=== PATIENT | male | born 1980 | race African-American/Black ===

== ENCOUNTER 2016-10-23 15:10 | Inpatient (IN) | payer OTHER ==
[2016-10-23] VITALS (12 sets, daily range): BP systolic 90–123; BP diastolic 66–84; PULSE 114–152; RESP 12–48; TEMP 98.7–102.1; O2SAT 59–98
[~2016-10-23] VITALS: Ht 152.4 cm; Wt 36.2 kg
[~2016-10-23 15:10] MED LIST: ASPI-110; FEED1MIS9; FLUD.1 PO; HYOS.125 PO; JEVILIQ10 PEG; PHEN100S PEG; SCOP1PAT TD; TOPI100 GT
[2016-10-23] MEDS ORDERED: SODIUM CHLOR 0.9% 1000 ML INJ 1,000 ML IV ONE ×3 (15:19→18:15)
[2016-10-23] MEDS ORDERED: PIPERACIL-TAZO 4.5 GM PREMIX 100 ML IV STA (15:19)
[2016-10-23] MEDS ORDERED: AZITHROMYCIN INJ 500 MG in SODIUM CHLOR 0.9% 250 ML INJ 250 ML IV STA (15:19)
[2016-10-23 15:21] LABS: MEAN CORPUSCULAR HGB CONC 24.9 % (32.0-36.0)
--- NOTE | 2016-10-23 15:23 | PD ---
HPI Chief Complaint: Altered Mental Status Time Seen by Provider: 15:19 Travel History International Travel<30 days: No Contact w/Intl Traveler<30days: No Traveled to known affect area: No History of Present Illness HPI 36-year-old male with history of cerebral palsy, has a G-tube, previous pneumonia, presents to the ER today brought in by EMS because family noted that he is more disoriented than usual, grunting more than usual, and has been vomiting. He has a fever 101 according to EMS. He is nonverbal and unable to give us any further history. Modifying Factors: None Associated Signs & Symptoms: Fever, grunting, more disoriented than usual, vomiting Risk Factors: Cerebral palsy, nonverbal at baseline, pneumonia PFSH Past Medical History Autoimmune Disease: No Blood Disorders: No Cancer: No Cardiovascular Problems: Yes (BRADYCARDIA) Cerebral Palsy: Yes Chemotherapy: No Developmental Delay: Yes Diminished Hearing: No Endocrine: No Gastrointestinal Disorders: Yes (J TUBE ) GERD: Yes Genitourinary: No Hiatal Hernia: Yes Immune Disorder: No Musculoskeletal: Yes (C.P --- SCOLIOSIS) Neurologic: Yes (CEREBRAL PALSY, SEVERE DEVELOPMENTAL DELAY) Psychiatric: No Respiratory: Yes (PNA) Immunizations Current: Yes Radiation Therapy: No Seizures: Yes Shingles: Yes Past Surgical History Abdominal Surgery: Yes (2000 EXP LAP SBO, HECTOR FUNDOPLICATION, NEW PEG SITE MARCH 2007 ) Body Medical Devices: G-TUBE,RING AROUND ESOPHAGUS Cardiac Surgery: No Ear Surgery: No Endocrine Surgery: No Eye Surgery: No Genitourinary Surgery: No Gynecologic Surgery: No Neurologic Surgery: Yes (HISTORY OF SEIZURES) Oral Surgery: No Thoracic Surgery: No Other Surgery: Yes (G-TUBE, SPLEEN REMOVED ) Social History Alcohol Use: No Tobacco Use: No Substance Use: No Allergies-Medications (Allergen,Severity, Reaction): Coded Allergies: No Known Allergies (Unverified , 06/21/16) Reported Meds & Prescriptions Reported Meds & Active Scripts Active Hyoscyamine Sulfate 0.125 Mg Tab 0.125 Mg PO Q6H 7 Days Transderm-Scop (Scopolamine) 1 Patch Patch 1 Patch TD Q3D 30 Days Phenytoin 125 Mg/5 Ml Lyla 100 Mg PEG Q12HR 30 Days Aspirin/Enteric (Aspirin) 81 Mg Tab 81 Mg .XX DAILY Florinef (Fludrocortisone Acetate) 0.1 Mg Tab 0.2 Mg PO DAILY 30 Days Topamax (Topiramate) 100 Mg Tab 100 Mg GT BID 30 Days Jevity 1.5 Ang (Nutritional Supplements) Ang Liq 1 Can PEG CONTINUOUS 30 Days infusing at 60/hr continuous Kangaroo Scottie Pump Set/An (Feeding Tubes - Pump) 1 Mis Mis Ea Review of Systems ROS Limitations: Altered Mental Status Physical Exam Narrative GENERAL: Well-nourished, middle age -Welsh male with cerebral palsy and extremity contractures, awake, nonverbal. SKIN: Warm and dry. HEAD: Normocephalic. EYES: No scleral icterus. No injection or drainage. NECK: Supple, trachea midline. CARDIOVASCULAR: Fast and regular rhythm without murmurs, gallops, or rubs. RESPIRATORY: Breath sounds equal bilaterally. Mild accessory muscle use. GASTROINTESTINAL: Abdomen soft, non-tender, nondistended. G-tube appears to be in placed. MUSCULOSKELETAL: No cyanosis, or edema. BACK: Nontender without obvious deformity. No CVA tenderness. Data Data Last Documented VS Vital Signs Date Time Temp Pulse Resp B/P Pulse Ox O2 Delivery O2 Flow Rate FiO2 10/23/16 16:50 75 Non-Rebreather 15 10/23/16 16:48 152 46 90/68 10/23/16 15:55 102.1 Orders Electrocardiogram (10/23/16 15:19) Complete Blood Count With Diff (10/23/16 15:19) Comprehensive Metabolic Panel (10/23/16 15:19) Lactic Acid Sepsis Protocol (10/23/16 15:19) Lipase (10/23/16 15:19) Ckmb (Isoenzyme) Profile (10/23/16 15:19) Troponin I (10/23/16 15:19) Urinalysis - C+S If Indicated (10/23/16 15:19) Influenzae A/B Antigen (10/23/16 15:19) Blood Culture (10/23/16 15:19) Chest, Single Ap (10/23/16 15:19) Blood Glucose (10/23/16 15:19) Ecg Monitoring (10/23/16 15:19) Iv Access Insert/Monitor (10/23/16 15:19) Oximetry (10/23/16 15:19) Oxygen Administration (10/23/16 15:19) Piperacil-Tazo 4.5 Gm Premix (Zosyn 4.5 (10/23/16 15:19) Azithromycin Inj (Zithromax Inj) (10/23/16 15:19) Sodium Chlor 0.9% 1000 Ml Inj (Ns 1000 M (10/23/16 15:19) Urine Culture (10/23/16 15:45) Ct Abd/Pel W Iv Contrast(Rout) (10/23/16 16:25) Oral Contrast - Adult (10/23/16 16:30) Ns + Kcl 20 Meq Inj (Ns + Kcl 20 Meq Inj (10/23/16 17:00) Sodium Chlor 0.9% 1000 Ml Inj (Ns 1000 M (10/23/16 17:00) Arterial Blood Gas (Abg) (10/23/16 16:52) Consult Vascular Access Team (10/23/16 ) Ct Pulmonary Angiogram (10/23/16 17:12) Admit Order (Ed Use Only) (10/23/16 17:13) Labs Laboratory Tests Test 10/23/16 10/23/16 15:25 15:45 White Blood Count 6.7 TH/MM3 Red Blood Count 5.47 MIL/MM3 Hemoglobin 9.4 GM/DL Hematocrit 37.7 % Mean Corpuscular Volume 68.9 FL Mean Corpuscular Hemoglobin 17.2 PG Mean Corpuscular Hemoglobin 24.9 % Concent Red Cell Distribution Width 24.2 % Platelet Count 200 TH/MM3 Mean Platelet Volume 9.2 FL Neutrophils (%) (Auto) 81.4 % Lymphocytes (%) (Auto) 16.4 % Monocytes (%) (Auto) 2.0 % Eosinophils (%) (Auto) 0.1 % Basophils (%) (Auto) 0.1 % Neutrophils # (Auto) 5.5 TH/MM3 Lymphocytes # (Auto) 1.1 TH/MM3 Monocytes # (Auto) 0.1 TH/MM3 Eosinophils # (Auto) 0.0 TH/MM3 Basophils # (Auto) 0.0 TH/MM3 CBC Comment AUTO DIFF Differential Comment AUTO DIFF CONFIRMED Platelet Estimate NORMAL Platelet Morphology Comment NORMAL Target Cells 2+ Ovalocytes 1+ Acanthocytes 1+ Sodium Level 151 MEQ/L Potassium Level 3.0 MEQ/L Chloride Level 112 MEQ/L Carbon Dioxide Level 25.5 MEQ/L Anion Gap 14 MEQ/L Blood Urea Nitrogen 42 MG/DL Creatinine 1.32 MG/DL Estimat Glomerular Filtration 75 ML/MIN Rate Random Glucose 150 MG/DL Calcium Level 8.6 MG/DL Total Bilirubin 0.2 MG/DL Aspartate Amino Transf 11 U/L (AST/SGOT) Alanine Aminotransferase 23 U/L (ALT/SGPT) Alkaline Phosphatase 113 U/L Total Creatine Kinase 28 U/L Troponin I LESS THAN 0.02 NG/ML Total Protein 9.3 GM/DL Albumin 2.8 GM/DL Lipase 130 U/L Urine Color YELLOW Urine Turbidity HAZY Urine pH 5.5 Urine Specific G[place]ay 1.032 Urine Protein 300 mg/dL Urine Glucose (UA) NEG mg/dL Urine Ketones TRACE mg/dL Urine Occult Blood NEG Urine Nitrite NEG Urine Bilirubin NEG Urine Urobilinogen 2.0 MG/DL Urine Leukocyte Esterase NEG Urine RBC 2 /hpf Urine WBC 4 /hpf Urine Squamous Epithelial <1 /hpf Cells Urine Bacteria OCC /hpf Urine Hyaline Casts 4 /lpf Urine Mucus MOD /lpf Microscopic Urinalysis Comment CATH-CULTURE IND Lactic Acid Level 7.9 mmol/L MDM Medical Decision Making Medical Screen Exam Complete: Yes Emergency Medical Condition: Yes Medical Record Reviewed: Yes Interpretation(s) Laboratory Tests Test 10/23/16 10/23/16 15:25 15:45 Hemoglobin 9.4 GM/DL (13.0-17.0) Hematocrit 37.7 % (39.0-51.0) Mean Corpuscular Volume 68.9 FL (80.0-100.0) Mean Corpuscular Hemoglobin 17.2 PG (27.0-34.0) Mean Corpuscular Hemoglobin 24.9 % Concent (32.0-36.0) Red Cell Distribution Width 24.2 % (11.6-17.2) Neutrophils (%) (Auto) 81.4 % (16.0-70.0) Target Cells 2+ (NORMAL) Ovalocytes 1+ (NORMAL) Acanthocytes 1+ (NORMAL) Sodium Level 151 MEQ/L (136-145) Potassium Level 3.0 MEQ/L (3.5-5.1) Chloride Level 112 MEQ/L (98-107) Blood Urea Nitrogen 42 MG/DL (7-18) Creatinine 1.32 MG/DL (0.60-1.30) Estimat Glomerular Filtration 75 ML/MIN (>89) Rate Random Glucose 150 MG/DL (74-106) Aspartate Amino Transf 11 U/L (15-37) (AST/SGOT) Total Creatine Kinase 28 U/L (39-308) Troponin I LESS THAN 0.02 NG/ML (0.02-0.05) Total Protein 9.3 GM/DL (6.4-8.2) Albumin 2.8 GM/DL (3.4-5.0) Urine Turbidity HAZY (CLEAR) Urine Protein 300 mg/dL (NEG-TRACE) Urine Ketones TRACE mg/dL (NEG) Urine Bacteria OCC /hpf (NONE) Urine Mucus MOD /lpf (OCC) Lactic Acid Level 7.9 mmol/L (0.4-2.0) Last 24 hours Impressions Chest X-Ray 10/23/16 9797 Signed Impressions: Service Date/Time: Sunday, October 23, 2016 15:21 - CONCLUSION: No acute disease. Ahsan Rodriguez MD Differential Diagnosis Altered mental status, vomitingsepsis versus dehydration versus metabolic issues versus pneumonia versus acute intra-abdominal processes Narrative Course Patient has a fever in the ER, and considering symptoms, there is concern for possible underlying sepsis and pneumonia. IV antibiotics were initiated after blood cultures were drawn. IV fluids initiated. Lab work returns showing significant dehydration, hyper natremia and hypokalemia. IV fluids as well as IV potassium was initiated. Patient is rapidly breathing and tachycardic despite IV fluids and I have discussed the findings with mom about intubation. Patient's mom initially was resistant to the idea but after further discussion, was agreeable and patient was intubated for respiratory distress and hypoxia. At this point, case had been discussed with Dr. Holliday, form stripper, for admission for further treatment. Aggregate critical care time was 35 minutes. Time to perform other separately billable procedures was not included in the critical care time. My time did not include minutes spent treating any other patients simultaneously or on activities that did not directly contribute to the patient's treatment. The services I provided to this patient were to treat and/or prevent clinically significant deterioration that could result in: Worsening respiratory distress, respiratory failure, septic shock, I provided critical care services requiring my management, as noted below: Chart data review, documentation time, medication orders and management, vital sign assessments/reviewing monitor data, ordering and reviewing lab tests, ordering and interpreting/reviewing x-rays and diagnostic studies, care of the patient and discussion of the patient with the admitting physicians. Procedures Procedure Narrative Left external jugular vein IV insertion: Area is prepped with ChloraPrep and patient is placed in Trendelenburg position. 20-gauge IV was placed in left EJ and inserted via Seldinger technique without issues. Patient tolerated procedure well. After the risks and benefits were discussed the following procedure was performed: INTUBATION: The patient was put in optimal position for the procedure. Rapid sequence intubation was initiated by me using 20 milligrams of etomidate IV and 10 milligrams of vecuronium IV. The patient was intubated with a 7.0 cuffed endotracheal tube. Tube placement was confirmed by visualization of the tube and balloon passing through the cords, capnometry and subsequent chest x-ray. Breath sounds were equal and well aerated bilaterally postintubation. No breath sounds over stomach. Patient tolerated procedure well. Sepsis Criteria SIRS Criteria (2 or more): Heart rate over 90, RR > 20 or PaCO2 < 32 Severe Sepsis (+one): Lactate >2 Septic Shock Criteria: Lactic acid >=4 Criteria Outcome: Meets severe sepsis criteria Diagnosis Primary Impression: Respiratory failure requiring intubation Additional Impressions: Hypokalemia Sepsis Admitting Information Admitting Physician Requests: Admit Feliberto Rodney MD Oct 23, 2016 15:23
--- NOTE | 2016-10-23 15:51 | RADRPT ---
EXAM DATE/TIME: 10/23/2016 15:21 [facility] COMPARISON: CHEST SINGLE AP, June 29, 2016, 9:31. INDICATIONS : Fever. MEDICAL HISTORY : Seizures. Cardiovascular disease. Cerebal palsy. SURGICAL HISTORY : None. ENCOUNTER: Subsequent ACUITY: 1 day PAIN SCORE: Non-responsive. LOCATION: Bilateral chest FINDINGS: A single view of the chest demonstrates the lungs to be symmetrically aerated without evidence of mas s, infiltrate or effusion. The cardiomediastinal contours are unremarkable. Osseous structures are intact with stable scoliosis with fracture lumbar spine to the right a secondary chest deformity.. CONCLUSION: No acute disease. Ahsan Rodriguez MD on October 23, 2016 at 15:49 Board Certified Radiologist. This report was verified electronically.
[2016-10-23 16:09] LABS: BACTERIA, URINE OCC /hpf; BLOOD, URINE NEG (NEG); GLUCOSE,URINE NEG (NEG); HYALINE CAST, URINE 4 /lpf (RARE); KETONE, URINE TRACE mg/dL (NEG); MUCUS URINE MOD /lpf (OCC); NITRITE,URINE NEG (NEG); PH, URINE 5.5 (5.0-8.5); SQUAMOUS EPITHELIAL CELL URINE <1 /hpf (0-5); URINE COLOR YELLOW (YELLW/STRAW)
[2016-10-23 16:10] LABS: COMMENT (UR) CATH-CULTURE IND; CULTURE IF INDICATED CATH CULTURE IND
[2016-10-23 16:15] LABS: RED BLOOD COUNT 5.47 MIL/MM3 (4.50-5.90); WHITE BLOOD COUNT 6.7 TH/MM3 (4.0-11.0)
[2016-10-23 16:16] LABS: AUTOMATED NEUTROPHIL # 5.5 TH/MM3 (1.8-7.7); BASOPHIL % 0.1 % (0.0-2.0); EOSINOPHIL % 0.1 % (0.0-4.0); HEMATOCRIT 37.7 % (39.0-51.0); LYMPH % 16.4 % (9.0-44.0); LYMPHOCYTE # 1.1 TH/MM3 (1.0-4.8); MEAN CELL VOLUME 68.9 FL (80.0-100.0); MEAN CORPUSCULAR HEMOGLOBIN 17.2 PG (27.0-34.0); NEUT % 81.4 % (16.0-70.0); PLATELET COUNT 200 TH/MM3 (150-450); RED CELL DISTRIBUTION WIDTH 24.2 % (11.6-17.2)
[2016-10-23 16:21] LABS: HEMO FLAGS AUTO DIFF
[2016-10-23 16:42] LABS: ANION GAP 14 MEQ/L (5-15); AST (GOT) 11 U/L (15-37); BICARBONATE 25.5 MEQ/L (21.0-32.0); BLOOD UREA NITROGEN 42 MG/DL (7-18); CHLORIDE 112 MEQ/L (98-107); GLOMERULAR FILTRATION RATE 75 ML/MIN (>89); SODIUM (NA) 151 MEQ/L (136-145)
[2016-10-23 16:48] LABS: ALKALINE PHOSPHATASE 113 U/L (45-117); ALT (GPT) 23 U/L (12-78); CREATINE KINASE 28 U/L (39-308); TOTAL BILIRUBIN ADULT 0.2 MG/DL (0.2-1.0)
[2016-10-23 16:49] LABS: ACANTHOCYTES 1+ (NORMAL); TARGET CELLS 2+ (NORMAL)
[2016-10-23 16:50] LABS: OVALOCYTES 1+ (NORMAL); PLATELET ESTIMATE SMEAR NORMAL (NORMAL); PLATELET MORPHOLOGY NORMAL (NORMAL); SCAN/DIFF AUTO DIFF CONFIRMED
[2016-10-23] MEDS ORDERED: NS + KCL 20 MEQ INJ 1,000 ML IV SCH (17:00)
[2016-10-23] MEDS ORDERED: VECURONIUM BROMIDE 10 MG VIAL ONE (17:17)
[2016-10-23] MEDS ORDERED: ETOMIDATE 20 MG/10 ML VIAL ONE (17:17)
[2016-10-23] MEDS ORDERED: VECURONIUM BROMIDE 10 MG VIAL IV ONE (17:45)
[2016-10-23] MEDS ORDERED: PROPOFOL 200 MG/20 ML AMP IV ONE (17:45)
[2016-10-23] MEDS ORDERED: ETOMIDATE 20 MG/10 ML VIAL IVP ONE (17:45)
[2016-10-23 18:05] LABS: LACTIC ACID GHOST NOT REPORTABLE
[2016-10-23] MEDS ORDERED: CHLORHEXIDINE GLUCONATE 2 % 1 PACK (2 CLOTHS) TOP PRN (18:15)
[2016-10-23] MEDS ORDERED: PROPOFOL 1000 MG/100 ML INJ 100 ML IV SCH (18:15)
[2016-10-23] MEDS ORDERED: GLUCAGON 1 MG/ML VIAL OTHER PRN (18:15)
[2016-10-23] MEDS ORDERED: VANCOMYCIN INJ 1,000 MG in SODIUM CHLOR 0.9% 250 ML INJ 250 ML IV ONE (18:15)
[2016-10-23] MEDS ORDERED: MISCELLANEOUS NURSING INFORMATION XX SCH (18:15)
[2016-10-23] MEDS: INSULIN NovoLIN REGULAR SUPPLEMENTAL SCALE SQ SCH (18:15)
[2016-10-23] MEDS ORDERED: ACETAMINOPHEN 325 MG TAB PO PRN (18:15)
--- NOTE | 2016-10-23 18:22 | RADRPT ---
EXAM DATE/TIME: 10/23/2016 18:06 [facility] COMPARISON: CHEST SINGLE AP, October 23, 2016, 15:21. INDICATIONS : Post intubation. MEDICAL HISTORY : Seizures. Cardiovascular disease. Cerebal palsy. SURGICAL HISTORY : None. ENCOUNTER: Initial ACUITY: 1 day PAIN SCORE: Non-responsive. LOCATION: Bilateral chest FINDINGS: The exam demonstrates advanced kyphotic deformity of the thoracic spine. The left lung is clear. Ther e is diffuse infiltrate throughout the right lung which is new compared to the previous dated 10/23/16 . This is concerning for pneumonia. ET tubes in good position. CONCLUSION: Diffuse infiltrate throughout the right lung concerning for pneumonia. ET tube in good position. Bernard Espinal MD on October 23, 2016 at 18:20 Board Certified Radiologist. This report was verified electronically.
[2016-10-23] MEDS: RESP: ALBUTEROL 2.5 MG/IPRATROPIUM 0.5 MG NEB (SCH) INH (18:33)
[2016-10-23 18:44] LABS: BLOOD GAS BASE EXCESS -4.6 mmol/L (-2-2); BLOOD GAS CARBOXYHEMOGLOBIN 1.9 % (0-4); BLOOD GAS HCO3 20 mmol/L (22-26); BLOOD GAS METHEMOGLOBIN 1.7 % (0-2); BLOOD GAS O2 HGB SATURATION 89 % (90-100); BLOOD GAS OXYGEN CONTENT 10.2 Vol % (12.0-20.0); BLOOD GAS PCO2 40 mmHg (38-42); BLOOD GAS PO2 70 mmHG (61-120); BLOOD GAS TOTAL HGB 8.1 G/DL (12.0-16.0); TEMP CORR TO 98.6
[2016-10-23 18:45] LABS: CRITICAL VALUE YES; DRAW SITE LT RADIAL; FIO2 70 %; OXYGEN DEVICE VENTILATOR; VENT SETTINGS SEE COMMENTS
[2016-10-23 18:46] LABS: NUMBER OF ARTERIAL PUNCTURES 1; STAT NO; ULNAR PULSE Y
[2016-10-23] MEDS ORDERED: IOHEXOL 350 MG/ML 10 ML VIAL (for RAD DIAG) IV ONE (19:34)
[2016-10-23] MEDS: PANTOPRAZOLE SODIUM 40 MG VIAL IV SCH (19:43)
[2016-10-23] MEDS: POTASSIUM CHLOR 20 MEQ PREMIX 100 ML IV SCH ×2 (19:44→21:55)
[2016-10-23] MEDS: HEPARIN SODIUM - SQ 10,000 UNITS/ML VIAL SQ SCH (20:22)
[2016-10-23] MEDS: DEXTROSE 50% IN WATER 50 ML VIAL(D50) IV PUSH PRN (20:33)
--- NOTE | 2016-10-23 20:52 | RADRPT ---
EXAM DATE/TIME: 10/23/2016 19:27 [facility] COMPARISON: No previous studies available for comparison. INDICATIONS : Evaluate for embolism. IV CONTRAST: 75 cc Omnipaque 350 (iohexol) IV ; Cumulative dose for multiple exams. RADIATION DOSE: 13.94 CTDIvol (mGy) MEDICAL HISTORY : Cerebral palsey. SURGICAL HISTORY : None. ENCOUNTER: Initial ACUITY: 1 day PAIN SCALE: Non-responsive LOCATION: Bilateral chest TECHNIQUE: Volumetric scanning of the chest was performed using a pulmonary embolism protocol MIP images were re constructed. Using automated exposure control and adjustment of the mA and/or kV according to patien t size, radiation dose was kept as low as reasonably achievable to obtain optimal diagnostic quality images. FINDINGS: Endotracheal tube tip is in satisfactory position. There is bilateral airspace consolidation somewhat diffusely but worse on the right. Differential diagnosis includes bilateral bronchopneumonia and asp iration. No significant effusion. No filling defects in the pulmonary arteries to suggest pulmonary embolic disease. 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 Gallstones noted in the gallbladder. There is gaseous distention of bowel with air fluid levels, probably ileus. CONCLUSION: 1. Negative for pulmonary embolus. 2. Diffuse bilateral airspace disease most characteristic of aspiration or pneumonia. 3. Endotracheal tube in satisfactory position. There is some mucoid debris in the airways. 4. Gallstones. Ileus. Scoliosis. Michael Feldman MD on October 23, 2016 at 20:47 Board Certified Radiologist. This report was verified electronically.
[2016-10-23] MEDS: TOPIRAMATE 100 MG TAB GT SCH (21:00)
[2016-10-23 21:06] LABS: MEAN CORPUSCULAR HGB CONC 25.7 % (32.0-36.0)
--- NOTE | 2016-10-23 21:12 | RADRPT ---
EXAM DATE/TIME: 10/23/2016 19:27 [facility] COMPARISON: CT ABDOMEN & PELVIS W/O CONTRAST, June 21, 2016, 2:31. INDICATIONS : Vomiting and fever. IV CONTRAST: 75 cc Omnipaque 350 (iohexol) IV ; Cumulative dose for multiple exams. ORAL CONTRAST: No oral contrast ingested. RADIATION DOSE: 5.78 CTDIvol (mGy) MEDICAL HISTORY : Cerebral palsey. SURGICAL HISTORY : None. ENCOUNTER: Initial ACUITY: 1 day PAIN SCALE: Non-responsive LOCATION: Bilateral abdomen. TECHNIQUE: Volumetric scanning of the abdomen and pelvis was performed. Using automated exposure control and ad justment of the mA and/or kV according to patient size, radiation dose was kept as low as reasonably achievable to obtain optimal diagnostic quality images. FINDINGS: Comparison is June 2016. There is bilateral disease at the bases, right greater than left. See c hest CT report. There is a hiatal hernia. Diffuse ileus present. No acute findings in the liver. Spleen not visualize d. No acute findings in pancreas and kidneys. Bilateral hip dysplasia noted. Watson catheter in decomp ressed bladder. CONCLUSION: 1. Multiple gallstones. Diffuse ileus. Scoliosis with bilateral hip dysplasia. Basilar lung disease. See chest CT. Michael Feldman MD on October 23, 2016 at 21:05 Board Certified Radiologist. This report was verified electronically.
[2016-10-23] MEDS ORDERED: Vancomycin Consult Pharmacy 1 EA OTHER SCH (21:15)
--- NOTE | 2016-10-23 21:50 | PD ---
Physical Exam Narrative I was called in the room to assess the patient after it was noted that the patient's feeding tube was accidentally removed. The patient was initially evaluated by Dr. Mccarthy and intubated related to hypoxemia on room air and tachycardia, suspected pneumonia. The patient is admitted to the intensive care unit although he is holding down in the emergency department. The admitting physician is Dr. Kwon. General: The patient is intubated, sedated with propofol drip. Cardiovascular: Sinus tachycardia in the low 100s without murmurs, gallops, or rubs. Lungs: Clear to auscultation bilaterally. No wheezes, rhonchi, or rales. Abdomen: Soft, without tenderness to palpation in all 4 quadrants of the abdomen, however the patient has a stoma in the center of the abdomen that appears to be fresh on examination. The feeding tube is noted to be removed in available at the bedside for review. This feeding tube appears to be in disrepair, therefore it will be replaced. Extremities: No clubbing, cyanosis, or edema. Data Data Last Documented VS Vital Signs Date Time Temp Pulse Resp B/P Pulse Ox O2 Delivery O2 Flow Rate FiO2 10/23/16 16:50 75 Non-Rebreather 15 10/23/16 16:48 152 46 90/68 10/23/16 15:55 102.1 Orders Electrocardiogram (10/23/16 15:19) Complete Blood Count With Diff (10/23/16 15:19) Comprehensive Metabolic Panel (10/23/16 15:19) Lactic Acid Sepsis Protocol (10/23/16 15:19) Lipase (10/23/16 15:19) Ckmb (Isoenzyme) Profile (10/23/16 15:19) Troponin I (10/23/16 15:19) Urinalysis - C+S If Indicated (10/23/16 15:19) Influenzae A/B Antigen (10/23/16 15:19) Blood Culture (10/23/16 15:19) Chest, Single Ap (10/23/16 15:19) Blood Glucose (10/23/16 15:19) Ecg Monitoring (10/23/16 15:19) Iv Access Insert/Monitor (10/23/16 15:19) Oximetry (10/23/16 15:19) Oxygen Administration (10/23/16 15:19) Piperacil-Tazo 4.5 Gm Premix (Zosyn 4.5 (10/23/16 15:19) Azithromycin Inj (Zithromax Inj) (10/23/16 15:19) Sodium Chlor 0.9% 1000 Ml Inj (Ns 1000 M (10/23/16 15:19) Urine Culture (10/23/16 15:45) Ct Abd/Pel W Iv Contrast(Rout) (10/23/16 16:25) Oral Contrast - Adult (10/23/16 16:30) Ns + Kcl 20 Meq Inj (Ns + Kcl 20 Meq Inj (10/23/16 17:00) Sodium Chlor 0.9% 1000 Ml Inj (Ns 1000 M (10/23/16 17:00) Arterial Blood Gas (Abg) (10/23/16 16:52) Consult Vascular Access Team (10/23/16 ) Ct Pulmonary Angiogram (10/23/16 17:12) Admit Order (Ed Use Only) (10/23/16 17:13) Labs Laboratory Tests Test 10/23/16 10/23/16 15:25 15:45 White Blood Count 6.7 TH/MM3 Red Blood Count 5.47 MIL/MM3 Hemoglobin 9.4 GM/DL Hematocrit 37.7 % Mean Corpuscular Volume 68.9 FL Mean Corpuscular Hemoglobin 17.2 PG Mean Corpuscular Hemoglobin 24.9 % Concent Red Cell Distribution Width 24.2 % Platelet Count 200 TH/MM3 Mean Platelet Volume 9.2 FL Neutrophils (%) (Auto) 81.4 % Lymphocytes (%) (Auto) 16.4 % Monocytes (%) (Auto) 2.0 % Eosinophils (%) (Auto) 0.1 % Basophils (%) (Auto) 0.1 % Neutrophils # (Auto) 5.5 TH/MM3 Lymphocytes # (Auto) 1.1 TH/MM3 Monocytes # (Auto) 0.1 TH/MM3 Eosinophils # (Auto) 0.0 TH/MM3 Basophils # (Auto) 0.0 TH/MM3 CBC Comment AUTO DIFF Differential Comment AUTO DIFF CONFIRMED Platelet Estimate NORMAL Platelet Morphology Comment NORMAL Target Cells 2+ Ovalocytes 1+ Acanthocytes 1+ Sodium Level 151 MEQ/L Potassium Level 3.0 MEQ/L Chloride Level 112 MEQ/L Carbon Dioxide Level 25.5 MEQ/L Anion Gap 14 MEQ/L Blood Urea Nitrogen 42 MG/DL Creatinine 1.32 MG/DL Estimat Glomerular Filtration 75 ML/MIN Rate Random Glucose 150 MG/DL Calcium Level 8.6 MG/DL Total Bilirubin 0.2 MG/DL Aspartate Amino Transf 11 U/L (AST/SGOT) Alanine Aminotransferase 23 U/L (ALT/SGPT) Alkaline Phosphatase 113 U/L Total Creatine Kinase 28 U/L Troponin I LESS THAN 0.02 NG/ML Total Protein 9.3 GM/DL Albumin 2.8 GM/DL Lipase 130 U/L Phenytoin (Dilantin) Level 5.9 MCG/ML Urine Color YELLOW Urine Turbidity HAZY Urine pH 5.5 Urine Specific [place] 1.032 Urine Protein 300 mg/dL Urine Glucose (UA) NEG mg/dL Urine Ketones TRACE mg/dL Urine Occult Blood NEG Urine Nitrite NEG Urine Bilirubin NEG Urine Urobilinogen 2.0 MG/DL Urine Leukocyte Esterase NEG Urine RBC 2 /hpf Urine WBC 4 /hpf Urine Squamous Epithelial <1 /hpf Cells Urine Bacteria OCC /hpf Urine Hyaline Casts 4 /lpf Urine Mucus MOD /lpf Microscopic Urinalysis Comment CATH-CULTURE IND Lactic Acid Level 7.9 mmol/L [facility] Medical Record Reviewed: Yes Supervised Visit with BRENDA: No Interpretation(s) Last Impressions CT Angiography 10/23/16 1712 Signed Impressions: Service Date/Time: Sunday, October 23, 2016 19:27 - CONCLUSION: 1. Negative for pulmonary embolus. 2. Diffuse bilateral airspace disease most characteristic of aspiration or pneumonia. 3. Endotracheal tube in satisfactory position. There is some mucoid debris in the airways. 4. Gallstones. Ileus. Scoliosis. Michael Feldman MD Abdomen/Pelvis CT 10/23/16 1625 Signed Impressions: Service Date/Time: Sunday, October 23, 2016 19:27 - CONCLUSION: 1. Multiple gallstones. Diffuse ileus. Scoliosis with bilateral hip dysplasia. Basilar lung disease. See chest CT. Michael Feldman MD Chest X-Ray 10/23/16 1519 Signed Impressions: Service Date/Time: Sunday, October 23, 2016 15:21 - CONCLUSION: No acute disease. Ahsan Rodriguez MD Abdomen X-Ray 10/23/16 0000 Signed Impressions: Service Date/Time: Sunday, October 23, 2016 22:07 - CONCLUSION: No evidence of obstruction. Injection through the feeding tube reveals filling of proximal small bowel loops. No leakage. Michael Feldman MD Differential Diagnosis Accidental feeding tube dislodgment by patient, versus during the evaluation in the emergency department with rolling the patient Narrative Course During the course of the patients emergency department visit, the patients history, examination, and differential diagnosis were reviewed with the patient. The patient is on a quality assurance monitor body with oximetry and blood pressure monitoring. The patient is on a propofol drip as the patient is intubated. The patient will have his feeding tube replaced. An 18-Arabic feeding tube was brought from [facility]. This was able to be placed by me without any difficulty. Gastric juices were noted to flow freely from one end. The balloon was inflated. A placement x-ray has been ordered. The patient's intensive care doctor has been notified by the nurse caring for the patient. Procedures Procedure Narrative The patient was placed flat in the supine physician, his stoma was identified in the upper center of his abdomen. The patient's 18 Arabic feeding tube was lubricated. The patient's tube passed easily. Gastric juices were noted to flow freely from one end. The end of the feeding tube was clamped. 8 cc of sterile saline were placed in the balloon to prevent dislodgment. A fresh bandage will be applied. An x-ray will be done to confirm placement. The patient tolerated the procedure well. Diagnosis Primary Impression: Respiratory failure requiring intubation Additional Impressions: Sepsis Qualified Code: A41.9 - Sepsis, due to unspecified organism Hypokalemia Dislodged gastrostomy tube Admitting Information Admitting Physician Requests: Admit Claire Evans MD Oct 23, 2016 21:50
[2016-10-23] MEDS: SODIUM CHLOR 0.45% 1000 ML INJ 1,000 ML IV SCH (21:55)
[2016-10-23] MEDS ORDERED: DIATRIZOATE MEGLUM/DIATRIZOATE SOD 120 ML BTL (for RAD DIAG) PEG ONE (22:15)
[2016-10-23] MEDS ORDERED: fentaNYL DRIP 250 ML ONE (22:37)
[2016-10-23] MEDS: fentaNYL DRIP 250 ML IV SCH (22:42)
--- NOTE | 2016-10-23 23:01 | RADRPT ---
EXAM DATE/TIME: 10/23/2016 22:07 [facility] COMPARISON: No previous studies available for comparison. INDICATIONS : Feeding tube placement. MEDICAL HISTORY : Seizures. Cardiovascular disease. Cerebal palsy. SURGICAL HISTORY : None. ENCOUNTER: Initial ACUITY: 1 day PAIN SCORE: Non-responsive. LOCATION: Left abdomen. FINDINGS: Injection reveals filling of small bowel without evidence for leakage. CONCLUSION: No evidence of obstruction. Injection through the feeding tube reveals filling of proximal small bowel loops. No leakage. Michael Feldman MD on October 23, 2016 at 22:59 Board Certified Radiologist. This report was verified electronically.
[2016-10-23] MEDS: PHENYTOIN SUSP 100 MG/4 ML CUP PEG SCH (23:50)
[2016-10-23] MEDS: FREE WATER G-TUBE SCH (23:50)
[2016-10-23] MEDS: PIPERACIL-TAZO 4.5 GM PREMIX 100 ML IV SCH (23:50)
[2016-10-24] VITALS (18 sets, daily range): BP systolic 85–103; BP diastolic 52–70; PULSE 119–129; RESP 17–33; TEMP 98–98.5; O2SAT 94–100
[2016-10-24] MEDS: SODIUM CHLOR 0.45% 1000 ML INJ 1,000 ML IV SCH ×3 (01:59→17:55)
[2016-10-24] MEDS: CHLORHEXIDINE GLUCONATE 2 % 1 PACK (2 CLOTHS) TOP SCH (01:59)
[2016-10-24] MEDS: RESP: ALBUTEROL 2.5 MG/IPRATROPIUM 0.5 MG NEB (SCH) INH ×5 (04:00→21:01)
[2016-10-24 04:13] LABS: BASOPHIL % 0.1 % (0.0-2.0); EOSINOPHIL % 0.1 % (0.0-4.0); HEMATOCRIT 29.4 % (39.0-51.0); LYMPH % 19.4 % (9.0-44.0); LYMPHOCYTE # 3.4 TH/MM3 (1.0-4.8); MEAN CORPUSCULAR HEMOGLOBIN 16.7 PG (27.0-34.0); MONO % 1.3 % (0.0-8.0); NEUT % 79.1 % (16.0-70.0); PLATELET COUNT 166 TH/MM3 (150-450); RED BLOOD COUNT 4.52 MIL/MM3 (4.50-5.90); RED CELL DISTRIBUTION WIDTH 24.4 % (11.6-17.2); WHITE BLOOD COUNT 17.7 TH/MM3 (4.0-11.0)
[2016-10-24 04:17] LABS: HEMO FLAGS AUTO DIFF
[2016-10-24 04:45] LABS: ALKALINE PHOSPHATASE 73 U/L (45-117); ALT (GPT) 19 U/L (12-78); ANION GAP 10 MEQ/L (5-15); AST (GOT) 18 U/L (15-37); BICARBONATE 23.2 MEQ/L (21.0-32.0); BLOOD UREA NITROGEN 30 MG/DL (7-18); CHLORIDE 120 MEQ/L (98-107); GLOMERULAR FILTRATION RATE 110 ML/MIN (>89); MAGNESIUM 2.1 MG/DL (1.5-2.5); POTASSIUM 3.5 MEQ/L (3.5-5.1); SODIUM (NA) 153 MEQ/L (136-145); TOTAL BILIRUBIN ADULT 0.4 MG/DL (0.2-1.0)
--- NOTE | 2016-10-24 05:27 | MH ---
cc: GERMÁN LARSON M.D. DATE OF ADMISSION: 10/23/2016 DATE OF 1980. HISTORY OF PRESENT ILLNESS The patient is a 36-year-old male with a past medical history of cerebral palsy, seizure disorder, mental retardation, previous hospitalization for aspiration pneumonia who presented to [facility] ED after family found him more disoriented than usual and had been vomiting. In the ED the patient was found febrile with temperature of 102.1 rectally, tachycardiac with heart rate in the 130s to 150s and tachypneic. In addition the patient was hypoxemic on non-rebreather and he was subsequently intubated with etomidate, vecuronium and placed on full mechanical ventilation. His laboratory data is significant for lactic acidemia with lactic acid level of 7.9, hypernatremic with sodium of 151 and hypokalemic with potassium level of 3.0. His renal function showed creatinine of 1.32. No evidence of any leukocytosis. His WBC is 6.7. Chest x-ray prior to intubation showed no acute disease. However, his x-ray post-intubation showed ET tube above the rosi and diffuse infiltrate throughout the right lung concerning for pneumonia. He is currently receiving a second liter of normal saline. In addition the patient received azithromycin and Zosyn in the ED. His CT abdomen and pelvis with IV contrast in addition to CT pulmonary angiogram has been ordered by ED, however, not performed during the time of this dictation. When seen in the ER the patient is on full mechanical ventilation with a PRVC/assist control mode with a rate of 20, tidal volume 500, PEEP of 5, 50% FIO2 and I time of 1.0. His current blood pressure is 108/86 with a pulse of 126 and saturation of 100%. PAST MEDICAL HISTORY Significant for - 1. Cerebral palsy. 2. Mental retardation. 3. Seizure disorder. 4. Scoliosis. PAST SURGICAL HISTORY 1. Previous exploratory laparotomy in 2000 for small bowel obstruction. 2. Previous PEG tube placement. ALLERGIES No known drug allergies. REPORTED MEDICATIONS 1. Dilantin. 2. Aspirin. 3. Florinef. 4. Topamax. FAMILY HISTORY Noncontributory. REVIEW OF SYSTEMS As per HPI. Rest of review of symptoms unobtainable. PHYSICAL EXAMINATION GENERAL: A 36-year-old male, intubated for acute hypoxemic respiratory failure. VITAL SIGNS: Temperature 102.1 rectally, pulse of 126, blood pressure 108/86, saturation 100%, vent setting PRBC/assist control mode rate of 20, tidal volume 400, PEEP of 5, FIO2 of 50%. I-time 1.0. HEENT: Atraumatic, normocephalic. Pupils equal, round, reactive to light and accommodation. Extraocular muscles intact. Conjunctivae pink. Nonicteric sclerae. Oral mucosa within normal limits. NECK: Supple. No JVD, adenopathy or thyromegaly. Trachea in the midline. CARDIOVASCULAR EXAM: Tachycardic. Normal S1 and S2. No murmurs, rubs, or gallops noted. PULMONARY EXAM: Bilateral equal air entry. No accessory muscle use. ABDOMEN: Soft. Mild tenderness on palpation. Nondistended. G-tube in place. EXTREMITIES: No cyanosis, clubbing or edema. NEUROLOGIC: Intubated. LABORATORY DATA Sodium of 151, potassium 3, chloride 112, CO2 25, BUN 42, creatinine 1.32, glucose 150, lactic acid 7.9. AST 11, ALT 23, alk phos 113, total bilirubin 0.2, lipase 130. WBC 6.7, hemoglobin 9.4, hematocrit 37, platelet count 200. Urinalysis negative for nitrite, negative for leukocyte esterase, 4 WBCs. RADIOGRAPHY STUDIES Chest x-ray post intubation showed diffuse infiltrate throughout the right lung concerning for pneumonia, ET tube above the rosi. IMPRESSION 1. Acute hypoxemic respiratory failure requiring intubation. 2. Lactic acidemia. 3. Acute kidney injury. 4. Rule out aspiration pneumonia. 5. Intractable nausea and vomiting. 6. Hypernatremia. 7. Hypokalemia. 8. Anemia. 9. Previous PEG tube placement. 10. History of cerebral palsy. 11. History of developmental delay. 12. History of seizure disorder. 13. History of recurrent aspiration pneumonia. RECOMMENDATIONS 1. Diprivan infusion if needed for sedation and daily sedation vacation. 2. Monitor neuro status closely. 3. Continue with vent support and maintain sats above 92%. 4. Bronchodilators in the form of DuoNeb q. 6. 5. Will initiate an ICU vent bundle. 6. CT pulmonary angiogram has been ordered by ED. We will follow up. 7. We will check ABG post-intubation. 8. Chest x-ray reviewed. 9. Monitor heart rate and blood pressure closely. Maintain MAP greater than 65 mmHg. 10. Serial lactic acid monitoring. 11. He is currently receiving second liter bolus of normal saline. We will give an additional 1 liter of NS followed by maintenance fluids one-half NS at 125 mL/hour. 12. Echo from May of 2016 showed an EF of 55% without any regional wall motion abnormalities. 13. Monitor renal function, I's and O's and electrolyte replacement as needed. 14. IV fluids as stated above. 15. Keep n.p.o. for now and place on Protonix 40 mg IV daily for GI prophylaxis. 16. CT of abdomen and pelvis has been ordered by the ED. Follow up on CT of abdomen and pelvis. 17. We will continue with broad-spectrum antibiotics in the form of Zosyn and Zithromax. In addition will give one dose of vancomycin x 1. Follow up on blood cultures and urine culture. His nasal washing is negative for influenza. 18. Monitor CBC. 19. Place on sliding scale insulin with Accu-Chek q. 6 hours for glycemic control. 20. GI prophylaxis with Protonix 40 mg daily and DVT prophylaxis with SCDs and heparin subcu. Further recommendations will be based on hospital course. Critical care time 60 minutes excluding procedures. MD JOSE Harris/SHANTEL /6:47 PM /5:04 AM
[2016-10-24] MEDS: INSULIN NovoLIN REGULAR SUPPLEMENTAL SCALE SQ SCH ×5 (05:48→23:08)
[2016-10-24] MEDS: FREE WATER G-TUBE SCH (05:48)
[2016-10-24] MEDS: PIPERACIL-TAZO 4.5 GM PREMIX 100 ML IV SCH ×4 (05:48→23:08)
[2016-10-24] MEDS ORDERED: LACTATED RINGER'S 1000 ML INJ 1,000 ML IV ONE (06:15)
[2016-10-24] MEDS ORDERED: METOCLOPRAMIDE HCL SYRUP 10 MG/10 ML UDC PO ONE (06:30)
[2016-10-24 06:50] LABS: BANDS 74 % (0-6); BASOPHILS 1 % (0-2); CORRECTED NUCLEATED RBC 4 /100 WBC (0-0); METAMYELOCYTES 8 % (0-1); NEUTROPHIL # MANUAL DIFF 15.4 TH/MM3 (1.8-7.7); POLYS (SEG NEUTROPHILS) 5 % (16-70); WBC DIFF SAMPLE 100
[2016-10-24 06:51] LABS: TARGET CELLS 1+ (NORMAL)
[2016-10-24 06:53] LABS: KERATOCYTES OCC (NORMAL); PLATELET ESTIMATE SMEAR NORMAL (NORMAL); PLATELET MORPHOLOGY NORMAL (NORMAL); SCAN/DIFF FINAL DIFF MANUAL
[2016-10-24] MEDS: HEPARIN SODIUM - SQ 10,000 UNITS/ML VIAL SQ SCH ×2 (08:15→21:06)
[2016-10-24] MEDS: LACTULOSE SYRUP 20 GM/30 ML CUP PO SCH ×4 (08:15→21:05)
[2016-10-24] MEDS: PHENYTOIN SUSP 100 MG/4 ML CUP PEG SCH ×2 (08:16→21:05)
[2016-10-24] MEDS: SENNOSIDES SYRUP 8.8 MG/5 ML CUP PO SCH (08:16)
[2016-10-24] MEDS: PANTOPRAZOLE SODIUM 40 MG VIAL IV SCH (08:16)
[2016-10-24] MEDS: FLUDROCORTISONE ACETATE 0.1 MG TAB PO SCH (09:00)
[2016-10-24] MEDS: VANCOMYCIN INJ 750 MG in SODIUM CHLOR 0.9% 250 ML INJ 250 ML IV SCH ×2 (11:21→23:08)
[2016-10-24] MEDS: TOPIRAMATE 100 MG TAB GT SCH ×2 (12:24→21:05)
[2016-10-24 14:42] LABS: BICARBONATE 21.7 MEQ/L (21.0-32.0)
[2016-10-24 14:43] LABS: POTASSIUM 5.8 MEQ/L (3.5-5.1)
[2016-10-24 14:58] LABS: CALCIUM-PROTEIN CORRECTED 7.2 MG/DL (8.5-10.1)
--- NOTE | 2016-10-24 15:39 | HHI.CCPN ---
Subjective Remarks/Hospital Course Note for 10/24/16: 10/23: Pneumonia, Respiratory Failure, Severe Sepsis - The patient is a 36-year- old male with a past medical history of cerebral palsy, seizure disorder, mental retardation, previous hospitalization for aspiration pneumonia who presented to [facility] ED after family found him more disoriented than usual and had been vomiting. In the ED the patient was found febrile with temperature of 102.1 rectally, tachycardiac with heart rate in the 130s to 150s and tachypneic. In addition the patient was hypoxemic on non-rebreather and he was subsequently intubated with etomidate, vecuronium and placed on full mechanical ventilation. 10/24: Severe sepsis persists despite broad abx coverage. Urine output improving after aggressive resuscitation. Objective Vital Signs Date Time Temp Pulse Resp B/P Pulse Ox O2 Delivery O2 Flow Rate FiO2 10/24/16 14:40 50 10/24/16 14:00 124 10/24/16 12:12 99 10/24/16 12:00 98.5 27 101/68 10/23/16 22:43 Ventilator 10/23/16 17:22 15 Result Diagram: 10/24/16 0350 10/24/16 1345 Other Results Microbiology Date/Time Procedure Status Source Growth 10/23/16 15:45 Influenza Types A,B Antigen (OLESYA) - Final Complete Nasal Washing NEGATIVE FOR FLU A AND B ANTIGEN.... Laboratory Tests Test 10/23/16 18:40 Blood Gas Puncture Site LT RADIAL Blood Gas Patient Temperature 98.6 Blood Gas HCO3 20 mmol/L (22-26) Blood Gas Base Excess -4.6 mmol/L (-2-2) Blood Gas Oxygen Saturation 89 % (90-100) Arterial Blood pH 7.33 (7.380-7.420) Arterial Blood Partial 40 mmHg (38-42) Pressure CO2 Arterial Blood Partial 70 mmHG Pressure O2 (61-120) Arterial Blood Oxygen Content 10.2 Vol % (12.0-20.0) Arterial Blood 1.9 % (0-4) Carboxyhemoglobin Arterial Blood Methemoglobin 1.7 % (0-2) Blood Gas Hemoglobin 8.1 G/DL (12.0-16.0) Oxygen Delivery Device VENTILATOR Blood Gas Ventilator Setting SEE COMMENTS Blood Gas Inspired Oxygen 70 % Objective Remarks PHYSICAL EXAMINATION GENERAL: Critically ill 36-year-old male. VITAL SIGNS: pulse of 124, blood pressure 101/68, saturation 100%, HEENT: Atraumatic, normocephalic. Orally intubated. NECK: Supple. Trachea in the midline. CARDIOVASCULAR EXAM: Tachycardic at 120s. Normal S1 and S2. No murmurs. No JVD. PULMONARY EXAM: Bilateral equal air entry. Diffuse rhonchi right. ABDOMEN: Soft. Mild tenderness on palpation. Nondistended. G-tube in place, loose in flange, patent. EXTREMITIES: Warm, well perfused. NEUROLOGIC: Largely obtunded, chronically contractured joints. A/P Assessment and Plan IMPRESSION: 1. Acute hypoxemic respiratory failure requiring intubation. 2. Lactic acidemia. 3. Acute kidney injury. 4. Aspiration pneumonia. 5. Intractable nausea and vomiting. 9. Previous PEG tube placement. 10. History of cerebral palsy. 11. History of developmental delay. 12. History of seizure disorder. 13. History of recurrent aspiration pneumonia. Plan: 1. Diprivan infusion if needed for sedation and daily sedation vacation. 2. Monitor neuro status closely. 3. Continue with vent support and maintain sats above 92%. PRVC mode. 4. Bronchodilators in the form of DuoNeb q. 6. 5. Vent bundle. 6. CT pulmonary angiogram has been ordered by ED -> no PE. 10. Serial lactic acid monitoring. 15. Keep n.p.o. for now and place on Protonix 40 mg IV daily for GI prophylaxis. 16. CT of abdomen and pelvis has been ordered by the ED. Follow up on CT of abdomen and pelvis. 17. Continue with broad-spectrum antibiotics in the form of Zosyn and Zithromax. 18. Monitor CBC. 19. Place on sliding scale insulin with Accu-Chek q. 6 hours for glycemic control. 20. SCDs and heparin sq. 21. Review cultures. 22. Daily SBT. Overall impression: He remains critically ill with hypoxemic respiratory failure , unable to wean from ventilator. Whole lung aspiration pneumonia is potentially fatal in this debilitaed man. Critical care 44 mins Sanket Estrada MD Oct 24, 2016 15:38
--- NOTE | 2016-10-24 16:44 | EKG ---
Date Performed: 10/23/2016 Time Performed: 15:27:22 PTAGE: 36 years EKG: SINUS TACHYCARDIA WITH SHORT RI INTERVAL, POSSIBLE ATRIAL FLUTTER ST DEVIATION AND MODERATE T-WAVE ABNORMALITY, CONSIDER ANTEROLATERAL ISCHEMIA ST DEVIATION AND MODERATE T-WAVE ABNORMALITY, CO NSIDER INFERIOR ISCHEMIA. Baseline artifact, consider repeat EKG. When compared to previous tracing, the patient is now Tachycardic and possibly now has atrial flutter. Clinical correlation and repeat E KG suggested. ABNORMAL ECG PREVIOUS TRACING : 06/21/2016 03.39 DOCTOR: Kylah Hunt Interpretating Date/Time 10/24/2016 16:42:55
[2016-10-24] MEDS: OXYBUTYNIN CHLORIDE 5 MG TAB PO SCH ×2 (17:54→21:05)
[2016-10-24] MEDS: AZITHROMYCIN INJ 500 MG in SODIUM CHLOR 0.9% 250 ML INJ 250 ML IV SCH (17:55)
[2016-10-24 21:05] LABS: MEAN CORPUSCULAR HGB CONC 26.8 % (32.0-36.0)
[2016-10-25] VITALS (20 sets, daily range): BP systolic 88–123; BP diastolic 52–71; PULSE 99–124; RESP 17–29; TEMP 98–98.8; O2SAT 94–100
[2016-10-25] MEDS: SODIUM CHLOR 0.45% 1000 ML INJ 1,000 ML IV SCH ×3 (02:49→18:12)
[2016-10-25 04:05] LABS: AUTOMATED NEUTROPHIL # 21.9 TH/MM3 (1.8-7.7); BASOPHIL % 0.2 % (0.0-2.0); EOSINOPHIL # 0.2 TH/MM3 (0-0.4); EOSINOPHIL % 0.9 % (0.0-4.0); HEMATOCRIT 22.2 % (39.0-51.0); LYMPH % 11.5 % (9.0-44.0); LYMPHOCYTE # 2.9 TH/MM3 (1.0-4.8); MEAN CELL VOLUME 61.9 FL (80.0-100.0); MEAN CORPUSCULAR HEMOGLOBIN 16.6 PG (27.0-34.0); MONO % 1.7 % (0.0-8.0); NEUT % 85.7 % (16.0-70.0); PLATELET COUNT 159 TH/MM3 (150-450); RED BLOOD COUNT 3.58 MIL/MM3 (4.50-5.90); RED CELL DISTRIBUTION WIDTH 24.2 % (11.6-17.2); WHITE BLOOD COUNT 25.5 TH/MM3 (4.0-11.0)
[2016-10-25 04:08] LABS: HEMO FLAGS AUTO DIFF
[2016-10-25 04:24] LABS: BICARBONATE 24.8 MEQ/L (21.0-32.0); POTASSIUM 3.5 MEQ/L (3.5-5.1)
[2016-10-25] MEDS: RESP: ALBUTEROL 2.5 MG/IPRATROPIUM 0.5 MG NEB (SCH) INH ×4 (04:31→21:45)
[2016-10-25] MEDS: OXYBUTYNIN CHLORIDE 5 MG TAB PO SCH ×3 (05:54→20:12)
[2016-10-25] MEDS: fentaNYL DRIP 250 ML IV SCH (05:55)
[2016-10-25] MEDS: PIPERACIL-TAZO 4.5 GM PREMIX 100 ML IV SCH ×4 (05:55→22:54)
[2016-10-25] MEDS: CHLORHEXIDINE GLUCONATE 2 % 1 PACK (2 CLOTHS) TOP SCH (05:55)
[2016-10-25] MEDS: INSULIN NovoLIN REGULAR SUPPLEMENTAL SCALE SQ SCH ×4 (06:00→23:50)
[2016-10-25 06:23] LABS: BANDS 26 % (0-6); CORRECTED NUCLEATED RBC 2 /100 WBC (0-0); EOSINOPHILS 2 % (0-4); METAMYELOCYTES 4 % (0-1); NEUTROPHIL # MANUAL DIFF 19.9 TH/MM3 (1.8-7.7); POLYS (SEG NEUTROPHILS) 48 % (16-70); SCAN/DIFF FINAL DIFF MANUAL; WBC DIFF SAMPLE 100
[2016-10-25 06:27] LABS: HOWELL-JOLLY BODIES PRESENT (NONE SEEN); PLATELET ESTIMATE SMEAR NORMAL (NORMAL); PLATELET MORPHOLOGY NORMAL (NORMAL); TARGET CELLS 1+ (NORMAL)
[2016-10-25 06:28] LABS: KERATOCYTES OCC (NORMAL)
[2016-10-25 06:29] LABS: ACANTHOCYTES 1+ (NORMAL); SPHEROCYTES OCC (NORMAL)
[2016-10-25] MEDS: SENNOSIDES SYRUP 8.8 MG/5 ML CUP PO SCH (08:54)
[2016-10-25] MEDS: TOPIRAMATE 100 MG TAB GT SCH ×2 (08:54→20:12)
[2016-10-25] MEDS: LACTULOSE SYRUP 20 GM/30 ML CUP PO SCH ×4 (08:54→20:12)
[2016-10-25] MEDS: FLUDROCORTISONE ACETATE 0.1 MG TAB PO SCH (08:54)
[2016-10-25] MEDS: HEPARIN SODIUM - SQ 10,000 UNITS/ML VIAL SQ SCH ×2 (08:54→20:12)
[2016-10-25] MEDS: PANTOPRAZOLE SODIUM 40 MG VIAL IV SCH (08:54)
[2016-10-25] MEDS: PHENYTOIN SUSP 100 MG/4 ML CUP PEG SCH ×2 (08:54→20:12)
[2016-10-25] MEDS ORDERED: PHARMACY ORDERED LAB XX ONE (11:45)
[2016-10-25] MEDS: VANCOMYCIN INJ 750 MG in SODIUM CHLOR 0.9% 250 ML INJ 250 ML IV SCH ×2 (14:13→23:50)
[2016-10-25 17:18] LABS: HEMATOCRIT 31.8 % (39.0-51.0)
[2016-10-25 17:20] LABS: REVIEW FLAG FINAL
[2016-10-25 17:38] LABS: BICARBONATE 24.6 MEQ/L (21.0-32.0); POTASSIUM 3.3 MEQ/L (3.5-5.1)
--- NOTE | 2016-10-25 17:43 | HHI.CCPN ---
Subjective Remarks/Hospital Course 10/23: Pneumonia, Respiratory Failure, Severe Sepsis - The patient is a 36-year- old male with a past medical history of cerebral palsy, seizure disorder, mental retardation, previous hospitalization for aspiration pneumonia who presented to [facility] ED after family found him more disoriented than usual and had been vomiting. In the ED the patient was found febrile with temperature of 102.1 rectally, tachycardiac with heart rate in the 130s to 150s and tachypneic. In addition the patient was hypoxemic on non-rebreather and he was subsequently intubated with etomidate, vecuronium and placed on full mechanical ventilation. 10/24: Severe sepsis persists despite broad abx coverage. Urine output improving after aggressive resuscitation. 10/25: GNR in sputum. Continue broad abx coverage pending speciation. Gas exchange improved. Objective Vital Signs Date Time Temp Pulse Resp B/P Pulse Ox O2 Delivery O2 Flow Rate FiO2 10/25/16 16:03 98 40 10/25/16 16:00 108 10/25/16 16:00 98.0 29 123/71 10/23/16 22:43 Ventilator 10/23/16 17:22 15 Intake and Output 10/24/16 10/24/16 10/25/16 08:00 16:00 00:00 Intake Total 1080 ml 1120 ml 1451 ml Output Total 425 ml 675 ml 850 ml Balance 655 ml 445 ml 601 ml Result Diagram: 10/25/16 1621 10/25/16 1621 Other Results Microbiology Date/Time Procedure Status Source Growth 10/23/16 15:45 Influenza Types A,B Antigen (OLESYA) - Final Complete Nasal Washing NEGATIVE FOR FLU A AND B ANTIGEN.... 10/23/16 15:45 Urine Culture - Final Complete Urine Catheterized Urine NO GROWTH IN 48 HOURS. Objective Remarks PHYSICAL EXAMINATION GENERAL: Critically ill 36-year-old male. VITAL SIGNS: pulse of 104, blood pressure 128/71, R 16 saturation 100%, HEENT: Atraumatic, normocephalic. Orally intubated. NECK: Supple. Trachea in the midline. CARDIOVASCULAR EXAM: Tachycardic. Normal S1 and S2. No murmurs. No JVD. PULMONARY EXAM: Bilateral equal air entry. Diffuse rhonchi persist right. Left clear. ABDOMEN: Soft. Mild tenderness on palpation. Nondistended. G-tube in place, loose in flange, patent. EXTREMITIES: Warm, well perfused. NEUROLOGIC: Largely obtunded, chronically contractured joints. A/P Assessment and Plan IMPRESSION: 1. Acute hypoxemic respiratory failure requiring intubation. 2. Lactic acidemia. 3. Acute kidney injury. 4. Aspiration pneumonia -> GNR. 5. Intractable nausea and vomiting. 9. Previous PEG tube placement. 10. History of cerebral palsy. 11. History of developmental delay. 12. History of seizure disorder. 13. History of recurrent aspiration pneumonia. Plan: 1. Diprivan infusion if needed for sedation and daily sedation vacation. 2. Monitor neuro status closely. 3. Continue with vent support and maintain sats above 92%. PRVC mode. 4. Bronchodilators in the form of DuoNeb q. 6. 5. Vent bundle. 6. CT pulmonary angiogram has been ordered by ED -> no PE. 10. Serial lactic acid monitoring. 15. Keep n.p.o. for now and place on Protonix 40 mg IV daily for GI prophylaxis. 16. CT of abdomen and pelvis has been ordered by the ED. Follow up on CT of abdomen and pelvis. 17. Continue with broad-spectrum antibiotics in the form of Zosyn and Zithromax. 18. Monitor CBC. 19. Place on sliding scale insulin with Accu-Chek q. 6 hours for glycemic control. 20. SCDs and heparin sq. 21. Review cultures. 22. Daily SBT. 23. Start TFs soon. Overall impression: He remains critically ill with hypoxemic respiratory failure , unable to wean from ventilator. Whole lung pneumonia is potentially fatal in this debilitated man. We lito to have grown an organism to treat at least. Critical care 38 mins Sanket Estrada MD Oct 25, 2016 17:43
[2016-10-25] MEDS: AZITHROMYCIN INJ 500 MG in SODIUM CHLOR 0.9% 250 ML INJ 250 ML IV SCH (18:11)
[2016-10-25 18:23] LABS: CALCIUM-PROTEIN CORRECTED 7.5 MG/DL (8.5-10.1)
[2016-10-25] MEDS: DEXTROSE 50% IN WATER 50 ML VIAL(D50) IV PUSH PRN (20:30)
[2016-10-26] VITALS (17 sets, daily range): BP systolic 103–126; BP diastolic 58–88; PULSE 94–110; RESP 16–24; TEMP 97.6–98.8; O2SAT 94–99
[2016-10-26] MEDS: SODIUM CHLOR 0.45% 1000 ML INJ 1,000 ML IV SCH ×2 (02:47→09:03)
[2016-10-26] MEDS: RESP: ALBUTEROL 2.5 MG/IPRATROPIUM 0.5 MG NEB (SCH) INH ×5 (04:00→19:47)
[2016-10-26] MEDS: CHLORHEXIDINE GLUCONATE 2 % 1 PACK (2 CLOTHS) TOP SCH (04:40)
[2016-10-26] MEDS: PIPERACIL-TAZO 4.5 GM PREMIX 100 ML IV SCH ×4 (04:41→21:20)
[2016-10-26 04:42] LABS: AUTOMATED NEUTROPHIL # 17.2 TH/MM3 (1.8-7.7); BASOPHIL % 0.1 % (0.0-2.0); EOSINOPHIL # 0.2 TH/MM3 (0-0.4); EOSINOPHIL % 1.1 % (0.0-4.0); HEMATOCRIT 34.2 % (39.0-51.0); MEAN CELL VOLUME 67.4 FL (80.0-100.0); MEAN CORPUSCULAR HEMOGLOBIN 20.5 PG (27.0-34.0); MEAN CORPUSCULAR HGB CONC 30.4 % (32.0-36.0); MONO % 1.9 % (0.0-8.0); NEUT % 86.9 % (16.0-70.0); PLATELET COUNT 177 TH/MM3 (150-450); RED BLOOD COUNT 5.07 MIL/MM3 (4.50-5.90); RED CELL DISTRIBUTION WIDTH 24.6 % (11.6-17.2); WHITE BLOOD COUNT 19.8 TH/MM3 (4.0-11.0)
[2016-10-26 04:48] LABS: HEMO FLAGS AUTO DIFF
[2016-10-26 04:56] LABS: BICARBONATE 25.7 MEQ/L (21.0-32.0)
[2016-10-26 05:04] LABS: POTASSIUM 2.6 MEQ/L (3.5-5.1)
[2016-10-26] MEDS: DEXTROSE 50% IN WATER 50 ML VIAL(D50) IV PUSH PRN ×2 (05:11→11:52)
[2016-10-26] MEDS: OXYBUTYNIN CHLORIDE 5 MG TAB PO SCH ×3 (05:11→21:20)
[2016-10-26] MEDS: INSULIN NovoLIN REGULAR SUPPLEMENTAL SCALE SQ SCH ×3 (05:11→18:00)
[2016-10-26] MEDS ORDERED: MAGNESIUM OXIDE 400 MG TAB PO PRN (05:15)
[2016-10-26] MEDS ORDERED: POTASSIUM CHLOR 40 MEQ PREMIX 100 ML IV PRN (05:15)
[2016-10-26] MEDS ORDERED: MAGNESIUM SULFATE INJ 4 GM in SODIUM CHLORIDE 0.9% INJ 92 ML IV PRN (05:15)
[2016-10-26] MEDS: POTASSIUM CHLOR 20 MEQ PREMIX 100 ML IV PRN ×5 (05:15→21:25)
[2016-10-26] MEDS ORDERED: SODIUM PHOSPHATE INJ 30 MMOL in SODIUM CHLOR 0.9% 250 ML INJ 240 ML IV PRN (05:15)
[2016-10-26] MEDS ORDERED: MAGNESIUM SULFATE INJ 2 GM in SODIUM CHLORIDE 0.9% INJ 96 ML IV PRN (05:15)
[2016-10-26] MEDS ORDERED: POTASSIUM CL 40 MEQ/30 ML LIQ UDC PO/TUBE PRN (05:15)
[2016-10-26] MEDS ORDERED: POTASSIUM PHOSPHATE MONOBASIC 500 MG TAB PO/TUBE PRN (05:15)
[2016-10-26] MEDS ORDERED: POTASSIUM CHLOR 20 MEQ PREMIX 100 ML IV PRN (05:15)
[2016-10-26] MEDS ORDERED: POTASSIUM PHOSPHATE MONOBASIC 500 MG TAB PO PRN (05:15)
[2016-10-26 05:50] LABS: ACANTHOCYTES OCC (NORMAL); BANDS 50 % (0-6); CORRECTED NUCLEATED RBC 6 /100 WBC (0-0); NEUTROPHIL # MANUAL DIFF 17.2 TH/MM3 (1.8-7.7); PLATELET ESTIMATE SMEAR NORMAL (NORMAL); PLATELET MORPHOLOGY NORMAL (NORMAL); POLYS (SEG NEUTROPHILS) 37 % (16-70); SCAN/DIFF FINAL DIFF MANUAL; WBC DIFF SAMPLE 100
[2016-10-26 05:51] LABS: TARGET CELLS 1+ (NORMAL)
[2016-10-26] MEDS: HEPARIN SODIUM - SQ 10,000 UNITS/ML VIAL SQ SCH ×2 (08:00→15:09)
--- NOTE | 2016-10-26 08:19 | HHI.CCPN ---
Subjective Remarks/Hospital Course 10/23: Pneumonia, Respiratory Failure, Severe Sepsis - The patient is a 36-year- old male with a past medical history of cerebral palsy, seizure disorder, mental retardation, previous hospitalization for aspiration pneumonia who presented to [facility] ED after family found him more disoriented than usual and had been vomiting. In the ED the patient was found febrile with temperature of 102.1 rectally, tachycardiac with heart rate in the 130s to 150s and tachypneic. In addition the patient was hypoxemic on non-rebreather and he was subsequently intubated with etomidate, vecuronium and placed on full mechanical ventilation. 10/24: Severe sepsis persists despite broad abx coverage. Urine output improving after aggressive resuscitation. 10/25: GNR in sputum. Continue broad abx coverage pending speciation. Gas exchange improved. 10/26: He remains obstructed with a colon ileus and constipation. Right lung infiltrate persists. Bandemia persists. Objective Vital Signs Date Time Temp Pulse Resp B/P Pulse Ox O2 Delivery O2 Flow Rate FiO2 10/26/16 07:56 96 40 10/26/16 04:00 97.6 96 17 111/69 10/23/16 22:43 Ventilator 10/23/16 17:22 15 Intake and Output 10/25/16 10/25/16 10/26/16 08:00 16:00 00:00 Intake Total 1120 ml 1702 ml 1508 ml Output Total 800 ml 750 ml 1350 ml Balance 320 ml 952 ml 158 ml Result Diagram: 10/26/16 0343 10/26/16 0343 Other Results Microbiology Date/Time Procedure Status Source Growth 10/23/16 15:45 Influenza Types A,B Antigen (OLESYA) - Final Complete Nasal Washing NEGATIVE FOR FLU A AND B ANTIGEN.... 10/23/16 15:45 Urine Culture - Final Complete Urine Catheterized Urine NO GROWTH IN 48 HOURS. Objective Remarks PHYSICAL EXAMINATION GENERAL: Critically ill 36-year-old male. VITAL SIGNS: pulse of 196, blood pressure 111/69, R 18 saturation 100%, HEENT: Atraumatic, normocephalic. Orally intubated. NECK: Supple. Trachea in the midline. CARDIOVASCULAR EXAM: Tachycardic. Normal S1 and S2. No murmurs. No JVD. PULMONARY EXAM: Bilateral equal air entry. Diffuse rhonchi persist right. Left clear. ABDOMEN: Soft. Tenderness on palpation. Tensely distended. G-tube in place, loose in flange, patent. EXTREMITIES: Warm, well perfused. NEUROLOGIC: Largely obtunded, chronically contractured joints. Cerebral palsy. A/P Assessment and Plan IMPRESSION: 1. Acute hypoxemic respiratory failure requiring intubation. 2. Lactic acidemia. 3. Acute kidney injury. 4. Aspiration pneumonia -> GNR. 5. Intractable nausea and vomiting. 9. Previous PEG tube placement. 10. History of cerebral palsy. 11. History of developmental delay. 12. History of seizure disorder. 13. History of recurrent aspiration pneumonia. Plan: 1. Diprivan infusion if needed for sedation and daily sedation vacation. 2. Monitor neuro status closely. 3. Continue with vent support and maintain sats above 92%. PRVC mode. 4. Bronchodilators in the form of DuoNeb q. 6. 5. Vent bundle. 6. CT pulmonary angiogram has been ordered by ED -> no PE. 10. Serial lactic acid monitoring. 15. Keep n.p.o. for now and place on Protonix 40 mg IV daily for GI prophylaxis. 16. CT of abdomen and pelvis has been ordered by the ED. Follow up on CT of abdomen and pelvis. 17. Continue with broad-spectrum antibiotics in the form of Zosyn and Zithromax. 18. Monitor CBC. 19. Place on sliding scale insulin with Accu-Chek q. 6 hours for glycemic control. 20. SCDs and heparin sq. 21. Review cultures. 22. Daily SBT. 23. Start TFs soon. 24. Start enemas and laxatives. Overall impression: He remains critically ill with hypoxemic respiratory failure , unable to wean from ventilator; failed SBT. Whole lung pneumonia is potentially fatal in this debilitated man. He remains tensely distended and septic. Hydration has improved. Critical care 39 mins Sanket Estrada MD Oct 26, 2016 08:19
[2016-10-26] MEDS: LACTULOSE SYRUP 20 GM/30 ML CUP PO SCH ×4 (09:02→21:20)
[2016-10-26] MEDS: FLUDROCORTISONE ACETATE 0.1 MG TAB PO SCH (09:02)
[2016-10-26] MEDS: POLYETHYLENE GLYCOL 17 GM PKG PO SCH (09:02)
[2016-10-26] MEDS: PHENYTOIN SUSP 100 MG/4 ML CUP PEG SCH ×2 (09:02→21:20)
[2016-10-26] MEDS: SENNOSIDES SYRUP 8.8 MG/5 ML CUP PO SCH (09:02)
[2016-10-26] MEDS: TOPIRAMATE 100 MG TAB GT SCH ×2 (09:02→21:20)
[2016-10-26] MEDS: PANTOPRAZOLE SODIUM 40 MG VIAL IV SCH (09:03)
--- NOTE | 2016-10-26 09:20 | RADRPT ---
EXAM DATE/TIME: 10/26/2016 08:29 [place] COMPARISON: CHEST SINGLE AP, October 23, 2016, 18:06. INDICATIONS : Hypoxemia. MEDICAL HISTORY : Seizures. Cardiovascular disease. Cerebal palsy. SURGICAL HISTORY : None. ENCOUNTER: Subsequent ACUITY: 3 days PAIN SCORE: Non-responsive. LOCATION: Bilateral chest FINDINGS: AP portable view of the chest demonstrates an endotracheal tube with the tip just above the level of the clavicles projecting 2.7 cm above the level of the rosi. This appears stable. The heart size ap pears normal. There is stable airspace consolidation seen throughout the right hemithorax. The left i s hypoinflated secondary to severe scoliosis but otherwise clear. CONCLUSION: Stable endotracheal tube which appears slightly high. Stable airspace consolidation w ithin the right hemithorax. Iesha Murray MD on October 26, 2016 at 9:17 Board Certified Radiologist. This report was verified electronically.
[2016-10-26] MEDS ORDERED: PHARMACY ORDERED LAB XX ONE (11:15)
[2016-10-26] MEDS: VANCOMYCIN INJ 750 MG in SODIUM CHLOR 0.9% 250 ML INJ 250 ML IV SCH (11:52)
[2016-10-26] MEDS ORDERED: SOD PHOSPHATE/SOD BIPHOSPHATE (ADULT) ENEMA 133ML PR PRN (12:30)
[2016-10-26] MEDS: ACETAMINOPHEN 650 MG/20.3 ML UDC PEG PRN (15:09)
[2016-10-26] MEDS: SOD PHOSPHATE/SOD BIPHOSPHATE (ADULT) ENEMA 133ML PR SCH ×2 (15:10→21:00)
[2016-10-26] MEDS: AZITHROMYCIN INJ 500 MG in SODIUM CHLOR 0.9% 250 ML INJ 250 ML IV SCH (18:43)
[2016-10-26] MEDS: DEXT 5%-NACL 0.45% 1000 ML INJ 1,000 ML IV SCH (19:15)
--- NOTE | 2016-10-26 20:02 | PD.ID.CON ---
History of Present Illness Service ID Consult Requested By Reason for Consult Evaluation and management of sepsis, possible aspiration pneumonia in a patient with cerebral palsy. Primary Care Physician Andrew St MD Diagnoses: History of Present Illness Mr. Thakur is a 36-year-old male with past medical history significant for cerebral palsy, seizure disorder, mental retardation, previous history of hospitalization for aspiration pneumonia who presented to the [facility] emergency department after his family found him more disoriented than usual and also bouts of vomiting. In the emergency department the patient was found to be febrile with a temperature of 102.1 rectally, tachycardic with heart rate in the 130s and 150s and very tachypneic. In addition the patient was hypoxic on nonrebreather and he was subsequently intubated emergently. His labs are significant for lactic acidemia with level of 7.9, hypernatremia with a sodium of 151, hypo-kalemia with K 3.0, creatinine of 1.22 and WBC 6.7. Chest x-ray prior to intubation showed no acute disease. However postextubation there is diffuse infiltrates throughout the right lung. Patient received IV fluids as a part of his resuscitation. Sepsis workup was initiated and patient was started on Zosyn IV as well as azithromycin. Blood cultures done on admission showed coag negative staph and sputum cultures show growth of Klebsiella pneumonia which is pansensitive. At the time of my evaluation patient is in the intensive surgical care unit. The RN taking care of patient informs me that patient had large amount of bilious vomiting. Thereafter she notified the piston maker and an OG tube was placed which led to suctioning of another 400+ mL of green bilious fluid. She also reported the OG tube could not be passed beyond a few centimeters. She informed me that this was notified to the piston maker and a GI consult is pending. She reports that patient has undergone Brina fundoplication as well as had an abdominal surgeries. Infectious disease is consulted for evaluation and management of severe sepsis, possible aspiration pneumonia in a patient with cerebral palsy as well as distorted GI anatomy. Review of Systems ROS Limitations: Intubated, Altered Mental Status Past Family Social History Allergies: Coded Allergies: No Known Allergies (Unverified , 06/21/16) Past Medical History Cerebral palsy Contractures Mental retardation, Cortical blindness Partial blindness Elemental delay Seizure disorder Scoliosis History of small bowel obstruction Past Surgical History Previous exploratory laparotomy in 2000 for small bowel obstruction. Previous PEG tube placement. h/o splenectomy Brina fundoplication Achilles tendon surgery Reported Medications Last Impressions Chest X-Ray 10/26/16 0000 Signed Impressions: Service Date/Time: October 08:29 - CONCLUSION: Stable endotracheal tube which appears slightly high. Stable airspace consolidation within the right hemithorax. Iesha Murray MD CT Angiography 10/23/16 1712 Signed Impressions: Service Date/Time: Sunday, October 23, 2016 19:27 - CONCLUSION: 1. Negative for pulmonary embolus. 2. Diffuse bilateral airspace disease most characteristic of aspiration or pneumonia. 3. Endotracheal tube in satisfactory position. There is some mucoid debris in the airways. 4. Gallstones. Ileus. Scoliosis. Michael Feldman MD Abdomen/Pelvis CT 10/23/16 1625 Signed Impressions: Service Date/Time: Sunday, October 23, 2016 19:27 - CONCLUSION: 1. Multiple gallstones. Diffuse ileus. Scoliosis with bilateral hip dysplasia. Basilar lung disease. See chest CT. Michael Feldman MD Abdomen X-Ray 10/23/16 0000 Signed Impressions: Service Date/Time: Sunday, October 23, 2016 22:07 - CONCLUSION: No evidence of obstruction. Injection through the feeding tube reveals filling of proximal small bowel loops. No leakage. Michael Feldman MD Active Ordered Medications Current Medications Medications (Trade) Dose Ordered Sig/Carlotta Route Start Time Stop Time Status Last Admin (NS Flush) 2 ml UNSCH PRN IVF 10/23/16 17:45 (Dilantin Liq) 100 mg Q12HR PEG 10/23/16 21:00 10/26/16 09:02 (Topamax) 100 mg BID GT 10/23/16 21:00 10/26/16 09:02 (Florinef) 0.2 mg DAILY PO 10/24/16 09:00 10/26/16 09:02 (Protonix Inj) 40 mg DAILY IV 10/23/16 18:15 10/26/16 09:03 Miscellaneous Information 1 Q361D XX 10/23/16 18:15 (Chlorhexidine 2% Cloth) 3 pack Taper DAILY@04 TOP 10/24/16 04:00 10/20/17 03:59 10/26/16 04:40 Chlorhexidine Gluconate 3 pack 3 pack UNSCH PRN TOP 10/23/16 18:15 Propofol 100 ml @ 0 mls/hr TITRATE IV 10/23/16 18:15 10/23/16 21:09 Piperacillin Sod/ Tazobactam Sod 100 ml @ 200 mls/hr Q6H IV 10/23/16 23:00 10/26/16 17:02 (Zithromax Inj/ NS 250 ml Inj) 250 ml @ 250 mls/hr Q24H IV 10/24/16 18:00 10/26/16 18:43 (D50w (Vial) Inj) 25 ml UNSCH PRN IV PUSH 10/23/16 18:15 10/26/16 11:52 (Glucagon Inj) 1 mg UNSCH PRN OTHER 10/23/16 18:15 (NovoLIN R SUPPLEMENTAL SCALE) 1 Q6HR SQ 10/23/16 18:15 (Lactulose Liq) 30 ml QID PO 10/24/16 09:00 10/26/16 18:43 Sennosides 8.8 mg 8.8 mg DAILY PO 10/24/16 09:00 10/26/16 09:02 (fentaNYL DRIP) 250 ml @ 0 mls/hr TITRATE IV 10/23/16 22:30 10/25/16 05:55 Oxybutynin Chloride 5 mg 5 mg Q8HR PO 10/24/16 17:30 10/26/16 12:54 Potassium Chloride 100 ml @ 50 mls/hr Q2H PRN IV 10/26/16 05:15 (KCl 20 Meq Premix Inj) 100 ml @ 50 mls/hr Q2H PRN IV 10/26/16 05:15 10/26/16 10:07 Potassium Chloride 40 meq 40 meq UNSCH PRN PO/TUBE 10/26/16 05:15 Potassium Chloride 100 ml @ 25 mls/hr UNSCH PRN IV 10/26/16 05:15 Potassium Chloride 100 ml @ 50 mls/hr Q2H PRN IV 10/26/16 05:15 (Magnesium Sulfate Inj/NS Inj) 100 ml @ 50 mls/hr UNSCH PRN IV 10/26/16 05:15 Magnesium Oxide 800 mg 800 mg UNSCH PRN PO 10/26/16 05:15 (Magnesium Sulfate Inj/NS Inj) 100 ml @ 50 mls/hr UNSCH PRN IV 10/26/16 05:15 Potassium Phosphate 2000 mg 2,000 mg Q4H PRN PO 10/26/16 05:15 (Sodium Phosphate Inj/NS 250 ml Inj) 250 ml @ 42 mls/hr UNSCH PRN IV 10/26/16 05:15 (KCl 40 Meq/30 ml Liq) 40 meq UNSCH PRN PO/TUBE 10/26/16 05:15 Potassium Phosphate 2000 mg 2,000 mg UNSCH PRN PO/TUBE 10/26/16 05:15 (Potassium Phosphate Inj/NS 250 ml Inj) 260 ml @ 42 mls/hr UNSCH PRN IV 10/26/16 05:15 (Miralax) 17 gm DAILY PO 10/26/16 09:00 10/26/16 09:02 (Heparin Inj) 5,000 units Q8H SQ 10/26/16 16:00 10/26/16 15:09 (Fleets Enema (Adult)) 133 ml BID PRN CO 10/26/16 12:30 10/26/16 12:51 (Fleets Enema (Adult)) 133 ml BID CO 10/26/16 12:45 10/26/16 15:10 Acetaminophen 650 mg 650 mg Q4H PRN PEG 10/26/16 15:00 10/26/16 15:09 (D5W-1/2 NS 1000 ml Inj) 1,000 ml @ 125 mls/hr Q8H IV 10/26/16 19:15 10/26/16 19:15 (Dulcolax Supp) 10 mg DAILY RECTAL 10/27/16 09:00 Family History Could not be obtained Social History Lives at home with his mother. Reportedly his mother takes him in a wheelchair around the town. Physical Exam Vital Signs Vital Signs Date Time Temp Pulse Resp B/P Pulse Ox O2 Delivery O2 Flow Rate FiO2 10/26/16 19:47 98 40 10/26/16 18:00 110 10/26/16 16:09 94 40 10/26/16 16:00 104 10/26/16 16:00 98.4 96 20 121/75 94 10/26/16 14:00 94 10/26/16 13:42 97 40 10/26/16 12:00 107 10/26/16 12:00 98.2 107 24 126/88 97 10/26/16 10:29 40 10/26/16 10:29 99 40 10/26/16 10:00 104 10/26/16 08:00 98.3 98 16 103/58 97 10/26/16 08:00 98 10/26/16 08:00 40 10/26/16 07:56 96 40 10/26/16 04:45 98 40 10/26/16 04:00 97.6 96 17 111/69 98 10/26/16 04:00 40 10/26/16 01:41 98 40 10/26/16 00:00 98.0 104 19 108/74 99 10/26/16 00:00 40 10/25/16 22:57 97 40 Physical Exam GENERAL: Poorly nourished, cachectic appearing patient, in no apparent distress. SKIN: No rashes. HEAD: Atraumatic. No temporal or scalp tenderness. EYES: Pupils equal round and reactive. Extraocular motions intact. No scleral icterus. No injection or drainage. ENT: Nose without bleeding, purulent drainage or septal hematoma. NECK: Trachea midline. Supple, nontender, no meningeal signs. CARDIOVASCULAR: HS audible. RESPIRATORY: Breath sounds equal bilaterally. Coarse bronchial breath sounds bilaterally anteriorly. GASTROINTESTINAL: Abdomen soft, distended, tense, no rebound or rigidity. PEG tube site ok. MUSCULOSKELETAL: Extremities with contractures and deformities. No joint tenderness, effusion, or edema noted. NEUROLOGICAL: Non responsive. Opens eyes spontaneously. Psych: could not be assessed. IV line sites with no e/o infection. Laboratory Laboratory Tests Test 10/26/16 10/26/16 10/26/16 03:43 10:17 11:40 White Blood Count 19.8 Red Blood Count 5.07 Hemoglobin 10.4 Hematocrit 34.2 Mean Corpuscular Volume 67.4 Mean Corpuscular Hemoglobin 20.5 Mean Corpuscular Hemoglobin 30.4 Concent Red Cell Distribution Width 24.6 Platelet Count 177 Mean Platelet Volume 9.3 Neutrophils (%) (Auto) 86.9 Lymphocytes (%) (Auto) 10.0 Monocytes (%) (Auto) 1.9 Eosinophils (%) (Auto) 1.1 Basophils (%) (Auto) 0.1 Neutrophils # (Auto) 17.2 Lymphocytes # (Auto) 2.0 Monocytes # (Auto) 0.4 Eosinophils # (Auto) 0.2 Basophils # (Auto) 0.0 CBC Comment AUTO DIFF Differential Total Cells 100 Counted Neutrophils % (Manual) 37 Band Neutrophils % 50 Lymphocytes % 12 Monocytes % 1 Neutrophils # (Manual) 17.2 Nucleated Red Blood Cells 6 Differential Comment FINAL DIFF MANUAL Platelet Estimate NORMAL Platelet Morphology Comment NORMAL Target Cells 1+ Acanthocytes OCC Sodium Level 145 Potassium Level 2.6 Chloride Level 110 Carbon Dioxide Level 25.7 Anion Gap 9 Blood Urea Nitrogen 8 Creatinine 0.64 Estimat Glomerular Filtration 174 Rate Random Glucose 63 Calcium Level 7.6 Magnesium Level 2.0 Lactic Acid Level 0.9 Vancomycin Level Trough 14.3 Date/Time Procedure Status Source Growth 10/24/16 02:25 Gram Stain - Final Complete Sputum Endotracheal 10/24/16 02:25 Sputum Culture - Final Complete Klebsiella Pneumoniae 10/23/16 15:45 Urine Culture - Final Complete Urine Catheterized Urine NO GROWTH IN 48 HOURS. 10/23/16 15:45 Influenza Types A,B Antigen (OLESYA) - Final Complete Nasal Washing NEGATIVE FOR FLU A AND B ANTIGEN.... 10/23/16 15:25 Aerobic Blood Culture - Preliminary Resulted Blood Peripheral Staph Sp Coagulase Negative 10/23/16 15:25 Anaerobic Blood Culture - Preliminary Resulted Blood Peripheral NO GROWTH IN 3 DAYS Result Diagram: 10/26/16 0343 10/26/16 0343 Imaging Last Impressions Chest X-Ray 10/26/16 0000 Signed Impressions: Service Date/Time: October 08:29 - CONCLUSION: Stable endotracheal tube which appears slightly high. Stable airspace consolidation within the right hemithorax. Iesha Murray MD CT Angiography 10/23/16 1712 Signed Impressions: Service Date/Time: Sunday, October 23, 2016 19:27 - CONCLUSION: 1. Negative for pulmonary embolus. 2. Diffuse bilateral airspace disease most characteristic of aspiration or pneumonia. 3. Endotracheal tube in satisfactory position. There is some mucoid debris in the airways. 4. Gallstones. Ileus. Scoliosis. Michael Feldman MD Abdomen/Pelvis CT 10/23/16 1625 Signed Impressions: Service Date/Time: Sunday, October 23, 2016 19:27 - CONCLUSION: 1. Multiple gallstones. Diffuse ileus. Scoliosis with bilateral hip dysplasia. Basilar lung disease. See chest CT. Michael Feldman MD Abdomen X-Ray 10/23/16 0000 Signed Impressions: Service Date/Time: Sunday, October 23, 2016 22:07 - CONCLUSION: No evidence of obstruction. Injection through the feeding tube reveals filling of proximal small bowel loops. No leakage. Michael Feldman MD Assessment and Plan Assessment and Plan Severe sepsis present on admission Pneumonia present on admission: Aspiration pneumonia appears to be most likely. Although patient lives in the community and would like to rule out community- acquired pneumonia as well as atypical pneumonia. Coag negative staph bacteremia likely contamination Acute metabolic encephalopathy: At baseline patient has cerebral palsy with developmental delay but reportedly there has been a change from baseline. High-grade leukocytosis: Likely Leukemoid reaction, SIRS from chemical pneumonitis as well as aspiration related bacterial pneumonia. 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 History of Brina fundoplication as well as exploratory laparotomy for small bowel obstruction. Patient is at risk for recurrent aspiration pneumonia due to his history of Brina fundoplication, developmental delay, seizure disorder, scoliosis, distorted GI as well as skeletal anatomy. Recommendations: Repeat blood cultures 2 Check Legionella antigen Continue Zosyn IV Continue azithromycin IV for now Check Legionella antigen Discontinue vancomycin IV (no MRSA) Sputum cultures growing Klebsiella pneumoniae which is a GI organism. Follow cultures Agree with GI consult Follow clinically Case discussed with RN. No family in the room. Janet Yates MD Oct 26, 2016 20:02 Janet Yates MD Oct 26, 2016 20:02 Janet Yates MD Oct 26, 2016 20:02 Janet Yates MD Oct 26, 2016 20:02
[2016-10-26 21:13] LABS: MAGNESIUM 2.1 MG/DL (1.5-2.5)
[2016-10-26 21:17] LABS: POTASSIUM 2.6 MEQ/L (3.5-5.1)
[2016-10-26] MEDS: POTASSIUM CL 40 MEQ/30 ML LIQ UDC PO/TUBE PRN (21:25)
[2016-10-26] MEDS: fentaNYL DRIP 250 ML IV SCH (21:38)
[2016-10-27] VITALS (18 sets, daily range): BP systolic 92–112; BP diastolic 58–77; PULSE 92–113; RESP 16–20; TEMP 98.3–101; O2SAT 95–100
[2016-10-27] MEDS: POTASSIUM CHLOR 20 MEQ PREMIX 100 ML IV PRN ×2 (02:24)
[2016-10-27] MEDS: DEXT 5%-NACL 0.45% 1000 ML INJ 1,000 ML IV SCH ×3 (03:15→19:15)
[2016-10-27] MEDS: CHLORHEXIDINE GLUCONATE 2 % 1 PACK (2 CLOTHS) TOP SCH (04:00)
[2016-10-27] MEDS: RESP: ALBUTEROL 2.5 MG/IPRATROPIUM 0.5 MG NEB (SCH) INH ×3 (04:14→17:17)
[2016-10-27] MEDS: PIPERACIL-TAZO 4.5 GM PREMIX 100 ML IV SCH ×4 (05:00→22:00)
[2016-10-27] MEDS: OXYBUTYNIN CHLORIDE 5 MG TAB PO SCH ×3 (06:00→21:59)
[2016-10-27] MEDS: INSULIN NovoLIN REGULAR SUPPLEMENTAL SCALE SQ SCH ×3 (06:00→11:56)
--- NOTE | 2016-10-27 06:32 | RADRPT ---
EXAM DATE/TIME: 10/27/2016 05:56 [place] COMPARISON: ABDOMEN KUB ONLY, May 13, 2016, 8:26. INDICATIONS : Evaluate for ileus. MEDICAL HISTORY : Seizures. Cardiovascular disease. Cerebal palsy. SURGICAL HISTORY : None. ENCOUNTER: Subsequent ACUITY: 4 - 6 days PAIN SCORE: Non-responsive. LOCATION: Abdomen FINDINGS: A dysplastic appearance of both hips is again noted. There is mild gaseous distention of what is felt to represent large bowel. An ileus can have this appearance. CONCLUSION: Probable ileus pattern. Close clinical and radiographic followup recommended. Oj Shipley MD on October 27, 2016 at 6:29 Board Certified Radiologist. This report was verified electronically.
--- NOTE | 2016-10-27 07:17 | HHI.CCPN ---
Subjective Remarks/Hospital Course 10/23: Pneumonia, Respiratory Failure, Severe Sepsis - The patient is a 36-year- old male with a past medical history of cerebral palsy, seizure disorder, mental retardation, previous hospitalization for aspiration pneumonia who presented to [facility] ED after family found him more disoriented than usual and had been vomiting. In the ED the patient was found febrile with temperature of 102.1 rectally, tachycardiac with heart rate in the 130s to 150s and tachypneic. In addition the patient was hypoxemic on non-rebreather and he was subsequently intubated with etomidate, vecuronium and placed on full mechanical ventilation. 10/24: Severe sepsis persists despite broad abx coverage. Urine output improving after aggressive resuscitation. 10/25: GNR in sputum. Continue broad abx coverage pending speciation. Gas exchange improved. 10/26: He remains obstructed with a colon ileus and constipation. Right lung infiltrate persists. Bandemia persists. 10/27: Colon is frighteningly large. Hypokalemia complicating ileus. Objective Vital Signs Date Time Temp Pulse Resp B/P Pulse Ox O2 Delivery O2 Flow Rate FiO2 10/27/16 04:12 96 40 10/27/16 04:00 112 10/27/16 00:00 98.5 17 106/69 10/23/16 22:43 Ventilator 10/23/16 17:22 15 Intake and Output 10/26/16 10/26/16 10/27/16 08:00 16:00 00:00 Intake Total 1254 ml 2660 ml 1505 ml Output Total 950 ml 1300 ml 1800 ml Balance 304 ml 1360 ml -295 ml Result Diagram: 10/26/16 0343 10/26/162008 Objective Remarks PHYSICAL EXAMINATION GENERAL: Critically ill 36-year-old male. VITAL SIGNS: pulse of 112, blood pressure 101/68, R 19 saturation 96%, HEENT: Atraumatic, normocephalic. Orally intubated. NECK: Supple. Trachea in the midline. CARDIOVASCULAR EXAM: Tachycardic. Normal S1 and S2. No murmurs. No JVD. PULMONARY EXAM: Bilateral equal air entry. Diffuse rhonchi persist right. Left clear. ABDOMEN: Tenderness on palpation. Tensely distended. G-tube in place. BS few. EXTREMITIES: Warm, well perfused. NEUROLOGIC: Largely obtunded, chronically contractured joints. Cerebral palsy. Opens eyes to voice. A/P Assessment and Plan IMPRESSION: 1. Acute hypoxemic respiratory failure requiring intubation. 2. Lactic acidemia. 3. Acute kidney injury. 4. Aspiration pneumonia -> GNR. 5. Intractable nausea and vomiting. 9. Previous PEG tube placement. 10. History of cerebral palsy. 11. History of developmental delay. 12. History of seizure disorder. 13. History of recurrent aspiration pneumonia. Plan: 1. Diprivan infusion if needed for sedation and daily sedation vacation. 2. Monitor neuro status closely. 3. Continue with vent support and maintain sats above 92%. PRVC mode. 4. Bronchodilators in the form of DuoNeb q. 6. 5. Vent bundle. 6. CT pulmonary angiogram has been ordered by ED -> no PE. 10. Serial lactic acid monitoring. 15. Keep n.p.o. for now and place on Protonix 40 mg IV daily for GI prophylaxis. 16. CT of abdomen and pelvis has been ordered by the ED. Follow up on CT of abdomen and pelvis. 17. Continue with broad-spectrum antibiotics in the form of Zosyn and Zithromax. 18. Monitor CBC. 19. Place on sliding scale insulin with Accu-Chek q. 6 hours for glycemic control. 20. SCDs and heparin sq. 21. Review cultures. 22. Daily SBT. 23. Start TFs soon. 24. Start enemas and laxatives. 23. Replace K, no narcotics. Overall impression: He remains critically ill with hypoxemic respiratory failure , unable to wean from ventilator; continues to fail SBT. Whole lung pneumonia is potentially fatal in this debilitated man. He remains tensely distended and septic. Colon dimensions impressive. Hydration has improved. Critical care 36 mins Sanket Estrada MD Oct 27, 2016 07:17
[2016-10-27] MEDS: HEPARIN SODIUM - SQ 10,000 UNITS/ML VIAL SQ SCH ×3 (08:10→17:39)
--- NOTE | 2016-10-27 08:37 | MB ---
cc: SYLVESTER BOWLING M.D. DATE OF CONSULTATION 10/26/[address] Mg Brown REASON FOR CONSULTATION Constipation, increased output through the NG tube. HISTORY Mr. Remigio Thakur is an unfortunate 36-year-old gentleman with a history of cerebral palsy, seizure disorder, who came to the emergency room with aspiration pneumonia. The patient was more disoriented than normal and he was vomiting. In the emergency room, he was noted to have a fever, tachycardic, he was intubated, found to have aspiration pneumonia. The patient has also some mild abdominal distension, increased output through the PEG tube, also a large amount of stool was seen in the colon. A CT of the abdomen and pelvis showing possible ileus. GI consultation was obtained for further recommendations. PAST MEDICAL HISTORY 1. Mental retardation 2. Cerebral palsy 3. Seizure disorder 4. Scoliosis 5. Partial cortical blindness 6. Pneumonia PAST SURGICAL HISTORY 1. Exploratory laparotomy for bowel obstruction 2. PEG tube placement, new PEG site in March 2007 3. Brina fundoplication 4. Healed cord surgery at age 9 5. Exploratory laparoscopy for a small bowel obstruction 6. Splenectomy ALLERGIES No known allergies. MEDICATIONS AT HOME 1. Dilantin 2. Aspirin 3. Florinef 4. Topamax In the hospital the patient was placed on: 1. Tylenol 2. Heparin 3. Fleet's enema 4. MiraLax 5. Potassium chloride 6. Magnesium oxide 7. Azithromycin 8. Ditropan 9. Vancomycin 10. Florinef 11. Lactulose 12. Senokot 13. Zosyn 14. Fentanyl 15. Dilantin 16. Topamax 17. Propofol 18. Insulin p.r.n. REVIEW OF SYSTEMS Unfortunately cannot be performed. ON CLINICAL EXAMINATION The patient is sitting in bed intubated in no acute distress. VITAL SIGNS: Pulse 110, respiration 20, blood pressure 121/75, saturation 94. HEAD, EYES, EARS, NOSE, AND THROAT: PERRLA. NECK: No JVD. No lymphadenopathy. CHEST: Bilateral crepitation. CARDIOVASCULAR: S1 and S2. No murmur. ABDOMEN: Distended. PEG inside. Bowel sounds are minimal. 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 EXTREMITIES: He has contractures of his extremities upper or lower. LABORATORY DATA His white count is 19.8, hemoglobin 10.4, was 6 on the 25th, platelets 177. Chemistry essentially suggestive of potassium 2.6, normal BUN and creatinine and liver enzymes normal. His CT abdomen and pelvis done on 10/23 showed multiple gallstones, issues with scoliosis with bilateral hip dysplasia, bilateral lung disease. IMPRESSION Mr. Thakur is an unfortunate 36-year-old gentleman admitted with aspiration pneumonia. Findings are consistent with possible ileus and constipation. Gallstones do not seem to cause any issues at this time. Aspiration pneumonia secondary to vomiting. RECOMMENDATIONS Continue PEG to suction. Continue npo and current bowel regimen. Abdominal x-ray in the morning. Continue enemas. Dulcolax suppositories. G-tube was also placed to suction. Repeat LFTs. Further recommendation will depend on the patient's clinical status and the above results. I would like to thank Dr. Mg Brown for referring him to our office for consultation. MD NKECHI Callahan/YULIA /8:03 PM /8:22 AM MTDD
[2016-10-27] MEDS: POLYETHYLENE GLYCOL 17 GM PKG PO SCH (08:50)
[2016-10-27] MEDS: SENNOSIDES SYRUP 8.8 MG/5 ML CUP PO SCH (08:50)
[2016-10-27] MEDS: PANTOPRAZOLE SODIUM 40 MG VIAL IV SCH (08:50)
[2016-10-27] MEDS: PHENYTOIN SUSP 100 MG/4 ML CUP PEG SCH ×2 (08:50→21:59)
[2016-10-27] MEDS: PROPOFOL 1000 MG/100 ML INJ 100 ML IV SCH (08:50)
[2016-10-27] MEDS: BISACODYL 10 MG SUPP RECTAL SCH (08:51)
[2016-10-27] MEDS: TOPIRAMATE 100 MG TAB GT SCH ×2 (08:51→21:59)
[2016-10-27] MEDS: LACTULOSE SYRUP 20 GM/30 ML CUP PO SCH ×4 (08:51→21:59)
[2016-10-27] MEDS: FLUDROCORTISONE ACETATE 0.1 MG TAB PO SCH (08:51)
[2016-10-27] MEDS: SOD PHOSPHATE/SOD BIPHOSPHATE (ADULT) ENEMA 133ML PR SCH ×2 (08:53→21:58)
[2016-10-27 09:12] LABS: AUTOMATED NEUTROPHIL # 11.2 TH/MM3 (1.8-7.7); BASOPHIL % 0.1 % (0.0-2.0); EOSINOPHIL # 0.3 TH/MM3 (0-0.4); EOSINOPHIL % 2.2 % (0.0-4.0); HEMATOCRIT 30.2 % (39.0-51.0); LYMPH % 15.8 % (9.0-44.0); LYMPHOCYTE # 2.2 TH/MM3 (1.0-4.8); MEAN CELL VOLUME 66.2 FL (80.0-100.0); MEAN CORPUSCULAR HEMOGLOBIN 20.2 PG (27.0-34.0); MEAN CORPUSCULAR HGB CONC 30.5 % (32.0-36.0); MONO % 2.4 % (0.0-8.0); NEUT % 79.5 % (16.0-70.0); PLATELET COUNT 213 TH/MM3 (150-450); RED BLOOD COUNT 4.56 MIL/MM3 (4.50-5.90); RED CELL DISTRIBUTION WIDTH 25.3 % (11.6-17.2); WHITE BLOOD COUNT 14.1 TH/MM3 (4.0-11.0)
[2016-10-27 09:13] LABS: HEMO FLAGS AUTO DIFF
[2016-10-27 09:26] LABS: ANION GAP 7 MEQ/L (5-15); BICARBONATE 23.6 MEQ/L (21.0-32.0); BLOOD UREA NITROGEN 2 MG/DL (7-18); CHLORIDE 115 MEQ/L (98-107); GLOMERULAR FILTRATION RATE 156 ML/MIN (>89); SODIUM (NA) 146 MEQ/L (136-145)
[2016-10-27 09:31] LABS: ALKALINE PHOSPHATASE 70 U/L (45-117); ALT (GPT) 16 U/L (12-78); AST (GOT) 13 U/L (15-37); TOTAL BILIRUBIN ADULT 0.5 MG/DL (0.2-1.0)
[2016-10-27 09:58] LABS: ACANTHOCYTES OCC (NORMAL); PLATELET ESTIMATE SMEAR NORMAL (NORMAL); PLATELET MORPHOLOGY NORMAL (NORMAL); SCAN/DIFF AUTO DIFF CONFIRMED; TARGET CELLS 2+ (NORMAL)
--- NOTE | 2016-10-27 15:06 | HHI.IDPN ---
Subjective Subjective Remarks Mr. Thakur is a 36-year-old male with past medical history significant for cerebral palsy, seizure disorder, mental retardation, previous history of hospitalization for aspiration pneumonia. Patient now admitted for Aspiration PNA, Sepsis, acute metabolic encephalopathy and Ileus. Overnight events reviewed with RN. Patient reportedly tracks with eyes when Mom around. No fever or hypothermia No rash Patient had a large soft BM after bowel prep. PEG tube output green and fairly large amounts. OG tube to suction. RN reports despite these patient still has fairly freq need for suctioning. Oral secretions are thick white and tenacious. UO ok Antibiotics Zosyn IV Azithro IV Lines Line sites with no e/o infection Past Medical History reviewed Allergies: Coded Allergies: No Known Allergies (Unverified , 06/21/16) Objective . Vital Signs Date Time Temp Pulse Resp B/P Pulse Ox O2 Delivery O2 Flow Rate FiO2 10/27/16 14:00 98 10/27/16 12:00 102 10/27/16 12:00 98.3 102 19 112/68 98 10/27/16 12:00 40 10/27/16 11:42 99 40 10/27/16 10:00 100 10/27/16 08:48 98 40 10/27/16 08:00 100 10/27/16 08:00 40 10/27/16 08:00 98.3 94 16 92/58 97 10/27/16 06:00 113 10/27/16 04:12 96 40 10/27/16 04:00 40 10/27/16 04:00 98.3 113 16 101/75 95 10/27/16 04:00 112 10/27/16 02:00 111 10/27/16 00:20 98 40 10/27/16 00:00 98.5 92 17 106/69 98 10/27/16 00:00 40 10/27/16 00:00 92 10/26/16 22:00 102 10/26/16 20:00 98.8 100 20 109/71 98 10/26/16 20:00 104 10/26/16 20:00 40 10/26/16 19:47 98 40 10/26/16 18:00 110 10/26/16 16:09 94 40 10/26/16 16:00 104 10/26/16 16:00 98.4 96 20 121/75 94 10/26/16 10/26/16 10/27/16 15:00 23:00 07:00 Intake Total 2660 ml 1505 ml 1035 ml Output Total 1300 ml 1800 ml 1025 ml Balance 1360 ml -295 ml 10 ml Intake IV Total 2540 ml 1445 ml 1035 ml Tube Irrigant 120 ml 60 ml Output Urine Total 700 ml 1100 ml 625 ml Gastric Drainage Total 400 ml 0 ml 200 ml Drainage Total 200 ml 700 ml 200 ml # Bowel Movements 1 0 0 . Laboratory Tests Test 10/25/16 10/26/16 10/27/16 16:21 03:43 08:45 Hemoglobin 9.5 GM/DL 10.4 GM/DL 9.2 GM/DL Hematocrit 31.8 % 34.2 % 30.2 % White Blood Count 19.8 TH/MM3 14.1 TH/MM3 Red Blood Count 5.07 MIL/MM3 4.56 MIL/MM3 Mean Corpuscular Volume 67.4 FL 66.2 FL Mean Corpuscular Hemoglobin 20.5 PG 20.2 PG Mean Corpuscular Hemoglobin 30.4 % 30.5 % Concent Red Cell Distribution Width 24.6 % 25.3 % Platelet Count 177 TH/MM3 213 TH/MM3 Mean Platelet Volume 9.3 FL 9.0 FL Neutrophils (%) (Auto) 86.9 % 79.5 % Lymphocytes (%) (Auto) 10.0 % 15.8 % Monocytes (%) (Auto) 1.9 % 2.4 % Eosinophils (%) (Auto) 1.1 % 2.2 % Basophils (%) (Auto) 0.1 % 0.1 % Neutrophils # (Auto) 17.2 TH/MM3 11.2 TH/MM3 Lymphocytes # (Auto) 2.0 TH/MM3 2.2 TH/MM3 Monocytes # (Auto) 0.4 TH/MM3 0.3 TH/MM3 Eosinophils # (Auto) 0.2 TH/MM3 0.3 TH/MM3 Basophils # (Auto) 0.0 TH/MM3 0.0 TH/MM3 CBC Comment AUTO DIFF AUTO DIFF Differential Total Cells 100 Counted Neutrophils % (Manual) 37 % Band Neutrophils % 50 % Lymphocytes % 12 % Monocytes % 1 % Neutrophils # (Manual) 17.2 TH/MM3 Nucleated Red Blood Cells 6 /100 WBC Differential Comment FINAL DIFF AUTO DIFF MANUAL CONFIRMED Platelet Estimate NORMAL NORMAL Platelet Morphology Comment NORMAL NORMAL Target Cells 1+ 2+ Acanthocytes OCC OCC Laboratory Tests Test 10/25/16 10/26/16 10/26/16 10/26/16 16:21 03:43 10:17 20:09 Sodium Level 143 MEQ/L 145 MEQ/L 148 MEQ/L Potassium Level 3.3 MEQ/L 2.6 MEQ/L 2.6 MEQ/L Chloride Level 111 MEQ/L 110 MEQ/L 115 MEQ/L Carbon Dioxide Level 24.6 MEQ/L 25.7 MEQ/L 26.0 MEQ/L Anion Gap 7 MEQ/L 9 MEQ/L 7 MEQ/L Blood Urea Nitrogen 11 MG/DL 8 MG/DL 4 MG/DL Creatinine 0.63 MG/DL 0.64 MG/DL 0.66 MG/DL Estimat Glomerular Filtration 177 ML/MIN 174 ML/MIN 167 ML/MIN Rate Random Glucose 59 MG/DL 63 MG/DL 117 MG/DL Calcium Level 7.3 MG/DL 7.6 MG/DL 7.9 MG/DL Protein Corrected Calcium 7.5 MG/DL Magnesium Level 2.0 MG/DL 2.0 MG/DL 2.1 MG/DL Total Protein 6.8 GM/DL Lactic Acid Level 0.9 mmol/L Phosphorus Level 0.9 MG/DL Test 10/27/16 08:45 Sodium Level 146 MEQ/L Potassium Level 3.0 MEQ/L Chloride Level 115 MEQ/L Carbon Dioxide Level 23.6 MEQ/L Anion Gap 7 MEQ/L Blood Urea Nitrogen 2 MG/DL Creatinine 0.70 MG/DL Estimat Glomerular Filtration 156 ML/MIN Rate Random Glucose 86 MG/DL Calcium Level 7.7 MG/DL Total Bilirubin 0.5 MG/DL Aspartate Amino Transf 13 U/L (AST/SGOT) Alanine Aminotransferase 16 U/L (ALT/SGPT) Alkaline Phosphatase 70 U/L Total Protein 6.5 GM/DL Albumin 1.9 GM/DL Lipase 68 U/L Microbiology Date/Time Procedure Status Source Growth 10/27/16 03:30 Aerobic Blood Culture Received Blood Peripheral Pending 10/27/16 03:30 Anaerobic Blood Culture Received Blood Peripheral Pending 10/27/16 08:45 Aerobic Blood Culture Received Blood Peripheral Pending 10/27/16 08:45 Anaerobic Blood Culture Received Blood Peripheral Pending Imaging Last Impressions Abdomen X-Ray 10/27/16 0600 Signed Impressions: Service Date/Time: Thursday, October 27, 2016 05:56 - CONCLUSION: Probable ileus pattern. Close clinical and radiographic followup recommended. Oj Shipley MD Chest X-Ray 10/26/16 0000 Signed Impressions: Service Date/Time: October 08:29 - CONCLUSION: Stable endotracheal tube which appears slightly high. Stable airspace consolidation within the right hemithorax. Iesha Murray MD CT Angiography 10/23/16 1712 Signed Impressions: Service Date/Time: Sunday, October 23, 2016 19:27 - CONCLUSION: 1. Negative for pulmonary embolus. 2. Diffuse bilateral airspace disease most characteristic of aspiration or pneumonia. 3. Endotracheal tube in satisfactory position. There is some mucoid debris in the airways. 4. Gallstones. Ileus. Scoliosis. Michael Feldman MD Abdomen/Pelvis CT 10/23/16 1625 Signed Impressions: Service Date/Time: Sunday, October 23, 2016 19:27 - CONCLUSION: 1. Multiple gallstones. Diffuse ileus. Scoliosis with bilateral hip dysplasia. Basilar lung disease. See chest CT. Michael Feldman MD Physical Exam GENERAL: Poorly nourished, cachectic appearing patient, in no apparent distress. SKIN: No rashes. HEAD: Atraumatic. No temporal or scalp tenderness. EYES: Pupils equal round and reactive. Extraocular motions intact. No scleral icterus. No injection or drainage. ENT: Nose without bleeding, purulent drainage or septal hematoma. NECK: Trachea midline. Supple, nontender, no meningeal signs. CARDIOVASCULAR: HS audible. RESPIRATORY: Breath sounds equal bilaterally. Coarse bronchial breath sounds bilaterally anteriorly. GASTROINTESTINAL: Abdomen soft, distended, tense, no rebound or rigidity. PEG tube site ok. MUSCULOSKELETAL: Extremities with contractures and deformities. No joint tenderness, effusion, or edema noted. NEUROLOGICAL: Non responsive. Opens eyes spontaneously. Psych: could not be assessed. IV line sites with no e/o infection. Assessment & Plan Remarks Severe sepsis present on admission Pneumonia present on admission: Aspiration pneumonia appears to be most likely. Although patient lives in the community and would like to rule out community- acquired pneumonia as well as atypical pneumonia. Coag negative staph bacteremia likely contamination Acute metabolic encephalopathy: At baseline patient has cerebral palsy with developmental delay but reportedly there has been a change from baseline. High-grade leukocytosis: Likely Leukemoid reaction, SIRS from chemical pneumonitis as well as aspiration related bacterial pneumonia. 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 History of Brina fundoplication as well as exploratory laparotomy for small bowel obstruction. Patient is at risk for recurrent aspiration pneumonia due to his history of Brina fundoplication, developmental delay, seizure disorder, scoliosis, distorted GI as well as skeletal anatomy. Recommendations: Continue Zosyn IV Continue azithromycin IV for now Sputum cultures growing Klebsiella pneumoniae which is a GI organism. Follow cultures Follow clinically Case discussed with RN. to cover for me this weekend. Janet Yates MD Oct 27, 2016 15:06
[2016-10-27] MEDS: AZITHROMYCIN INJ 500 MG in SODIUM CHLOR 0.9% 250 ML INJ 250 ML IV SCH (17:39)
--- NOTE | 2016-10-27 17:51 | HHI.GIFU ---
Subjective Remarks Pt sedated on vent. Continues to have abdominal distention. Had large amount of secretions orally, NGT placed for secretions. G tube was placed to LIWS. Nurse reports pasty bowel movement earlier today. (Tabatha Garza) Objective Vitals I&O Vital Signs Date Time Temp Pulse Resp B/P Pulse Ox O2 Delivery O2 Flow Rate FiO2 10/27/16 17:22 40 10/27/16 17:18 100 40 10/27/16 14:00 98 10/27/16 12:00 102 10/27/16 12:00 98.3 102 19 112/68 98 10/27/16 12:00 40 10/27/16 11:42 99 40 10/27/16 10:00 100 10/27/16 08:48 98 40 10/27/16 08:00 100 10/27/16 08:00 40 10/27/16 08:00 98.3 94 16 92/58 97 10/27/16 06:00 113 10/27/16 04:12 96 40 10/27/16 04:00 40 10/27/16 04:00 98.3 113 16 101/75 95 10/27/16 04:00 112 10/27/16 02:00 111 10/27/16 00:20 98 40 10/27/16 00:00 98.5 92 17 106/69 98 10/27/16 00:00 40 10/27/16 00:00 92 10/26/16 22:00 102 10/26/16 20:00 98.8 100 20 109/71 98 10/26/16 20:00 104 10/26/16 20:00 40 10/26/16 19:47 98 40 10/26/16 18:00 110 I/O 10/26/16 10/26/16 10/26/16 10/27/16 10/27/16 10/27/16 07:00 15:00 23:00 07:00 15:00 23:00 Intake Total 1254 ml 2660 ml 1505 ml 1035 ml 1421 ml Output Total 950 ml 1300 ml 1800 ml 1025 ml 1500 ml Balance 304 ml 1360 ml -295 ml 10 ml -79 ml Intake IV Total 1134 ml 2540 ml 1445 ml 1035 ml 1361 ml Tube Irrigant 120 ml 120 ml 60 ml 60 ml Output Urine Total 400 ml 700 ml 1100 ml 625 ml 1000 ml Gastric Drainage Total 550 ml 400 ml 0 ml 200 ml 400 ml Drainage Total 200 ml 700 ml 200 ml 100 ml # Bowel Movements 0 1 0 0 1 Laboratory Laboratory Tests Test 10/26/16 10/27/16 20:09 08:45 Sodium Level 148 146 Potassium Level 2.6 3.0 Chloride Level 115 115 Carbon Dioxide Level 26.0 23.6 Anion Gap 7 7 Blood Urea Nitrogen 4 2 Creatinine 0.66 0.70 Estimat Glomerular Filtration 167 156 Rate Random Glucose 117 86 Calcium Level 7.9 7.7 Phosphorus Level 0.9 Magnesium Level 2.1 White Blood Count 14.1 Red Blood Count 4.56 Hemoglobin 9.2 Hematocrit 30.2 Mean Corpuscular Volume 66.2 Mean Corpuscular Hemoglobin 20.2 Mean Corpuscular Hemoglobin 30.5 Concent Red Cell Distribution Width 25.3 Platelet Count 213 Mean Platelet Volume 9.0 Neutrophils (%) (Auto) 79.5 Lymphocytes (%) (Auto) 15.8 Monocytes (%) (Auto) 2.4 Eosinophils (%) (Auto) 2.2 Basophils (%) (Auto) 0.1 Neutrophils # (Auto) 11.2 Lymphocytes # (Auto) 2.2 Monocytes # (Auto) 0.3 Eosinophils # (Auto) 0.3 Basophils # (Auto) 0.0 CBC Comment AUTO DIFF Differential Comment AUTO DIFF CONFIRMED Platelet Estimate NORMAL Platelet Morphology Comment NORMAL Target Cells 2+ Acanthocytes OCC Total Bilirubin 0.5 Aspartate Amino Transf 13 (AST/SGOT) Alanine Aminotransferase 16 (ALT/SGPT) Alkaline Phosphatase 70 Total Protein 6.5 Albumin 1.9 Lipase 68 Date/Time Procedure Status Source Growth 10/27/16 08:45 Aerobic Blood Culture Received Blood Peripheral Pending 10/27/16 08:45 Anaerobic Blood Culture Received Blood Peripheral Pending 10/24/16 02:25 Gram Stain - Final Complete Sputum Endotracheal 10/24/16 02:25 Sputum Culture - Final Complete Klebsiella Pneumoniae 10/23/16 15:45 Urine Culture - Final Complete Urine Catheterized Urine NO GROWTH IN 48 HOURS. 10/23/16 15:45 Influenza Types A,B Antigen (OLESYA) - Final Complete Nasal Washing NEGATIVE FOR FLU A AND B ANTIGEN.... 10/23/16 15:25 Aerobic Blood Culture - Preliminary Resulted Blood Peripheral Staph Sp Coagulase Negative 10/23/16 15:25 Anaerobic Blood Culture - Preliminary Resulted Blood Peripheral NO GROWTH IN 4 DAYS Imaging Last Impressions Abdomen X-Ray 10/27/16 0600 Signed Impressions: Service Date/Time: Thursday, October 27, 2016 05:56 - CONCLUSION: Probable ileus pattern. Close clinical and radiographic followup recommended. Oj Shipley MD Chest X-Ray 10/26/16 0000 Signed Impressions: Service Date/Time: October 08:29 - CONCLUSION: Stable endotracheal tube which appears slightly high. Stable airspace consolidation within the right hemithorax. Iesha Murray MD CT Angiography 10/23/16 1712 Signed Impressions: Service Date/Time: Sunday, October 23, 2016 19:27 - CONCLUSION: 1. Negative for pulmonary embolus. 2. Diffuse bilateral airspace disease most characteristic of aspiration or pneumonia. 3. Endotracheal tube in satisfactory position. There is some mucoid debris in the airways. 4. Gallstones. Ileus. Scoliosis. Michael Feldman MD Abdomen/Pelvis CT 10/23/16 1625 Signed Impressions: Service Date/Time: Sunday, October 23, 2016 19:27 - CONCLUSION: 1. Multiple gallstones. Diffuse ileus. Scoliosis with bilateral hip dysplasia. Basilar lung disease. See chest CT. Michael Feldman MD Physical Exam HEENT: Normocephalic; atraumatic CHEST: Resp. even/unlabored. Diminished. OETT to vent. CARDIAC: RRR. ABDOMEN: Distended, tympanic, appears to have abdominal tenderness; no hepatosplenomegaly; bowel sounds are hypoactive. 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 (Tabatha Garza) Assessment and Plan Plan ASSESSMENT: - Ileus, Constipation. Abdomen/Pelvis CT (10/23/16)-----> 1. Multiple gallstones. Diffuse ileus. Scoliosis with bilateral hip dysplasia. Basilar lung disease. See chest CT. Abdomen X-Ray (10/27/16)-----> Probable ileus pattern. Close clinical and radiographic followup recommended. NGT was placed for increased secretions in esophagus. G tube was to gravity, currently clamped. Pt with persistent distention/tympanic/tenderness. Nurse reports pasty bowel movement. On Lactulose QID, Fleets enemas, Dulcolax Suppository , Miralax. Will d/c lactulose and place rectal tube to LIWS, fu imaging in am. - Sepsis/PNA. WBC 14.1. On vent. Abx per ID, Nebs. - Anemia. 9.2/30.2. - SIM with Hypernatremia, hypokalemia. Per CCM - Hx cerebral palsey, development delay, sz disorder PLAN: - NPO - NGT to LIWS - Insert rectal tube and place to LIWS - D/C Lactulose - Cont. Miralax - KUB in am - BMP in am - Supportive care - Further recommendations to follow based on results of above - If no improvement, may need decompressive colonoscopy - Pt seen and examined by Dr. Watts and myself and this note is written on her behalf (Tabatha Garza) Physician Comments seen, examined agree with above discussed with radiology, colon mildly distended, no change from 23 oct 2016 had a bowel movement, responding well to enemas trial of Relistor, if no improvement consider decompression (Shayla Watts MD) Tabatha Garza Oct 27, 2016 17:51 Shayla Watts MD Oct 27, 2016 18:21
[2016-10-27] MEDS ORDERED: METHYLNALTREXONE BROMIDE 12 MG/0.6 ML VIAL SQ ONE (21:00)
[2016-10-28] VITALS (18 sets, daily range): BP systolic 102–127; BP diastolic 65–82; PULSE 76–96; RESP 16–20; TEMP 98.2–98.9; O2SAT 96–100
[2016-10-28] MEDS: DEXT 5%-NACL 0.45% 1000 ML INJ 1,000 ML IV SCH ×3 (01:29→19:15)
[2016-10-28] MEDS: HEPARIN SODIUM - SQ 10,000 UNITS/ML VIAL SQ SCH ×3 (01:29→16:12)
[2016-10-28] MEDS: CHLORHEXIDINE GLUCONATE 2 % 1 PACK (2 CLOTHS) TOP SCH (01:29)
--- NOTE | 2016-10-28 05:50 | RADRPT ---
EXAM DATE/TIME: 10/28/2016 05:08 [place] COMPARISON: ABDOMEN KUB ONLY, October 27, 2016, 5:56. INDICATIONS : Evaluate/follow up ileus. MEDICAL HISTORY : Cardiovascular disease. Cerebral palsy, Seizures SURGICAL HISTORY : None. ENCOUNTER: Subsequent ACUITY: 1 week PAIN SCORE: Non-responsive. LOCATION: Bilateral abdomen FINDINGS: There is slightly decreased colonic distention. Gastrostomy tube overlies left upper quadrant. Left l ower lobe consolidation. CONCLUSION: Left lower lobe pulmonary consolidation. There are gas-filled dilated bowel loops identified though s lightly decreased. Oj Shipley MD on October 28, 2016 at 5:48 Board Certified Radiologist. This report was verified electronically.
[2016-10-28] MEDS: INSULIN NovoLIN REGULAR SUPPLEMENTAL SCALE SQ SCH ×4 (06:00→17:48)
[2016-10-28] MEDS: OXYBUTYNIN CHLORIDE 5 MG TAB PO SCH ×3 (06:16→22:03)
[2016-10-28] MEDS: PIPERACIL-TAZO 4.5 GM PREMIX 100 ML IV SCH ×4 (06:16→22:03)
[2016-10-28] MEDS: PROPOFOL 1000 MG/100 ML INJ 100 ML IV SCH (06:18)
[2016-10-28] MEDS: SOD PHOSPHATE/SOD BIPHOSPHATE (ADULT) ENEMA 133ML PR SCH ×2 (08:33→21:00)
[2016-10-28] MEDS: POLYETHYLENE GLYCOL 17 GM PKG PO SCH (08:33)
[2016-10-28] MEDS: PHENYTOIN SUSP 100 MG/4 ML CUP PEG SCH ×2 (08:33→22:03)
[2016-10-28] MEDS: PANTOPRAZOLE SODIUM 40 MG VIAL IV SCH (08:34)
[2016-10-28] MEDS: LACTULOSE SYRUP 20 GM/30 ML CUP PO SCH ×4 (08:34→22:03)
[2016-10-28] MEDS: SENNOSIDES SYRUP 8.8 MG/5 ML CUP PO SCH (08:34)
[2016-10-28] MEDS: BISACODYL 10 MG SUPP RECTAL SCH (08:35)
[2016-10-28] MEDS: FLUDROCORTISONE ACETATE 0.1 MG TAB PO SCH (08:35)
[2016-10-28] MEDS: TOPIRAMATE 100 MG TAB GT SCH ×2 (08:35→22:03)
[2016-10-28 12:45] LABS: BICARBONATE 25.8 MEQ/L (21.0-32.0)
--- NOTE | 2016-10-28 12:48 | HHI.IDPN ---
Subjective Subjective Remarks ID COVERAGE Notes reviewed D/W RN On diprivan, but opens eyes when stimulated On the vent Has a lot of oral and ET secretions No fever or hypothermia BP ok, not on pressors No rash UO ok Mr. Thakur is a 36-year-old male with past medical history significant for cerebral palsy, seizure disorder, mental retardation, previous history of hospitalization for aspiration pneumonia. Patient now admitted for Aspiration PNA, Sepsis, acute metabolic encephalopathy and Ileus. Antibiotics Zosyn IV Azithro IV Lines Line sites with no e/o infection Past Medical History reviewed Allergies: Coded Allergies: No Known Allergies (Unverified , 06/21/16) Objective . Vital Signs Date Time Temp Pulse Resp B/P Pulse Ox O2 Delivery O2 Flow Rate FiO2 10/28/16 10:00 76 10/28/16 08:34 96 40 10/28/16 08:00 98.9 76 18 106/72 99 10/28/16 08:00 76 10/28/16 08:00 40 10/28/16 06:00 87 10/28/16 04:37 99 40 10/28/16 04:00 82 10/28/16 04:00 40 10/28/16 04:00 98.7 82 17 102/68 100 10/28/16 02:00 86 10/28/16 01:30 100 40 10/28/16 00:00 40 10/28/16 00:00 98.7 94 16 119/82 98 10/28/16 00:00 94 10/27/16 22:00 102 10/27/16 20:56 98 40 10/27/16 20:00 100.0 108 16 108/77 99 10/27/16 20:00 40 10/27/16 20:00 108 10/27/16 18:00 104 10/27/16 17:22 40 10/27/16 17:18 100 40 10/27/16 16:00 40 10/27/16 16:00 101.0 104 20 109/73 99 10/27/16 14:00 98 10/27/16 10/27/16 10/28/16 15:00 23:00 07:00 Intake Total 1421 ml 1359 ml 1140 ml Output Total 1500 ml 1625 ml 1225 ml Balance -79 ml -266 ml -85 ml Intake IV Total 1361 ml 1299 ml 1080 ml Tube Irrigant 60 ml 60 ml 60 ml Output Urine Total 1000 ml 1175 ml 725 ml Gastric Drainage Total 400 ml 100 ml 150 ml Drainage Total 100 ml 350 ml 350 ml # Bowel Movements 1 1 1 . Laboratory Tests Test 10/27/16 08:45 White Blood Count 14.1 TH/MM3 Red Blood Count 4.56 MIL/MM3 Hemoglobin 9.2 GM/DL Hematocrit 30.2 % Mean Corpuscular Volume 66.2 FL Mean Corpuscular Hemoglobin 20.2 PG Mean Corpuscular Hemoglobin 30.5 % Concent Red Cell Distribution Width 25.3 % Platelet Count 213 TH/MM3 Mean Platelet Volume 9.0 FL Neutrophils (%) (Auto) 79.5 % Lymphocytes (%) (Auto) 15.8 % Monocytes (%) (Auto) 2.4 % Eosinophils (%) (Auto) 2.2 % Basophils (%) (Auto) 0.1 % Neutrophils # (Auto) 11.2 TH/MM3 Lymphocytes # (Auto) 2.2 TH/MM3 Monocytes # (Auto) 0.3 TH/MM3 Eosinophils # (Auto) 0.3 TH/MM3 Basophils # (Auto) 0.0 TH/MM3 CBC Comment AUTO DIFF Differential Comment AUTO DIFF CONFIRMED Platelet Estimate NORMAL Platelet Morphology Comment NORMAL Target Cells 2+ Acanthocytes OCC Laboratory Tests Test 10/26/16 10/27/16 20:09 08:45 Sodium Level 148 MEQ/L 146 MEQ/L Potassium Level 2.6 MEQ/L 3.0 MEQ/L Chloride Level 115 MEQ/L 115 MEQ/L Carbon Dioxide Level 26.0 MEQ/L 23.6 MEQ/L Anion Gap 7 MEQ/L 7 MEQ/L Blood Urea Nitrogen 4 MG/DL 2 MG/DL Creatinine 0.66 MG/DL 0.70 MG/DL Estimat Glomerular Filtration 167 ML/MIN 156 ML/MIN Rate Random Glucose 117 MG/DL 86 MG/DL Calcium Level 7.9 MG/DL 7.7 MG/DL Phosphorus Level 0.9 MG/DL Magnesium Level 2.1 MG/DL Total Bilirubin 0.5 MG/DL Aspartate Amino Transf 13 U/L (AST/SGOT) Alanine Aminotransferase 16 U/L (ALT/SGPT) Alkaline Phosphatase 70 U/L Total Protein 6.5 GM/DL Albumin 1.9 GM/DL Lipase 68 U/L Microbiology Date/Time Procedure Status Source Growth 10/27/16 03:30 Aerobic Blood Culture - Preliminary Resulted Blood Peripheral NO GROWTH IN 1 DAY 10/27/16 03:30 Anaerobic Blood Culture - Final Resulted Blood Peripheral QNS - SEE AEROBE REPORT 10/27/16 08:45 Aerobic Blood Culture - Preliminary Resulted Blood Peripheral NO GROWTH IN 1 DAY 10/27/16 08:45 Anaerobic Blood Culture - Preliminary Resulted Blood Peripheral NO GROWTH IN 1 DAY Imaging Last Impressions Abdomen X-Ray 10/27/16 0600 Signed Impressions: Service Date/Time: Thursday, October 27, 2016 05:56 - CONCLUSION: Probable ileus pattern. Close clinical and radiographic followup recommended. Oj Shipley MD Chest X-Ray 10/26/16 0000 Signed Impressions: Service Date/Time: October 08:29 - CONCLUSION: Stable endotracheal tube which appears slightly high. Stable airspace consolidation within the right hemithorax. Iesha Murray MD CT Angiography 10/23/16 1712 Signed Impressions: Service Date/Time: Sunday, October 23, 2016 19:27 - CONCLUSION: 1. Negative for pulmonary embolus. 2. Diffuse bilateral airspace disease most characteristic of aspiration or pneumonia. 3. Endotracheal tube in satisfactory position. There is some mucoid debris in the airways. 4. Gallstones. Ileus. Scoliosis. Michael Feldman MD Abdomen/Pelvis CT 10/23/16 1625 Signed Impressions: Service Date/Time: Sunday, October 23, 2016 19:27 - CONCLUSION: 1. Multiple gallstones. Diffuse ileus. Scoliosis with bilateral hip dysplasia. Basilar lung disease. See chest CT. Michael Feldman MD Physical Exam GENERAL: Poorly nourished, cachectic appearing patient, NAD, on the vent SKIN: No rashes. Warm and dry HEAD: Atraumatic. No temporal or scalp tenderness. EYES: Pupils equal round and reactive. No scleral icterus. No injection or drainage. ENT: Nose without bleeding, purulent drainage or septal hematoma. ET in mouth NECK: Trachea midline. Supple, nontender, no meningeal signs. Scar in neck from previous trach CARDIOVASCULAR: HS audible. RESPIRATORY: Breath sounds equal bilaterally. Coarse bronchial breath sounds bilaterally anteriorly. GASTROINTESTINAL: Abdomen soft, distended, tense, no rebound or rigidity. PEG tube site ok. MUSCULOSKELETAL: Extremities with contractures and deformities. No joint tenderness, effusion, or edema noted. NEUROLOGICAL: Opens eyes spontaneously. No interaction. Extremities spastic and contracted Psych: could not be assessed. IV line sites with no e/o infection. Assessment & Plan Remarks Severe sepsis present on admission Pneumonia present on admission: Aspiration pneumonia appears to be most likely. Although patient lives in the community and would like to rule out community- acquired pneumonia as well as atypical pneumonia. Coag negative staph bacteremia likely contamination Acute metabolic encephalopathy: At baseline patient has cerebral palsy with developmental delay but reportedly there has been a change from baseline. High-grade leukocytosis: Likely Leukemoid reaction, SIRS from chemical pneumonitis as well as aspiration related bacterial pneumonia. 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 History of Brina fundoplication as well as exploratory laparotomy for small bowel obstruction. Patient is at risk for recurrent aspiration pneumonia due to his history of Brina fundoplication, developmental delay, seizure disorder, scoliosis, distorted GI as well as skeletal anatomy. Recommendations: Continue Zosyn IV Continue azithromycin IV for now Follow cultures Follow clinically Monitor Xiao Henderson RN, MD Oct 28, 2016 12:48
[2016-10-28 12:50] LABS: POTASSIUM 2.5 MEQ/L (3.5-5.1)
[2016-10-28] MEDS: POTASSIUM CHLOR 20 MEQ PREMIX 100 ML IV PRN ×2 (13:21→14:21)
[2016-10-28] MEDS: POTASSIUM CL 40 MEQ/30 ML LIQ UDC PO/TUBE PRN (13:21)
--- NOTE | 2016-10-28 14:32 | HHI.CCPN ---
Subjective Remarks/Hospital Course 10/23: Pneumonia, Respiratory Failure, Severe Sepsis - The patient is a 36-year- old male with a past medical history of cerebral palsy, seizure disorder, mental retardation, previous hospitalization for aspiration pneumonia who presented to [facility] ED after family found him more disoriented than usual and had been vomiting. In the ED the patient was found febrile with temperature of 102.1 rectally, tachycardiac with heart rate in the 130s to 150s and tachypneic. In addition the patient was hypoxemic on non-rebreather and he was subsequently intubated with etomidate, vecuronium and placed on full mechanical ventilation. 10/24: Severe sepsis persists despite broad abx coverage. Urine output improving after aggressive resuscitation. 10/25: GNR in sputum. Continue broad abx coverage pending speciation. Gas exchange improved. 10/26: He remains obstructed with a colon ileus and constipation. Right lung infiltrate persists. Bandemia persists. 10/27: Colon is frighteningly large. Hypokalemia complicating ileus. 10/28: Colon much less distended. Hypokalemia persists despite aggressive replacement. Respiratory failure from pneumonia persists. Objective Vital Signs Date Time Temp Pulse Resp B/P Pulse Ox O2 Delivery O2 Flow Rate FiO2 10/28/16 13:48 99 40 10/28/16 10:00 76 10/28/16 08:00 98.9 18 106/72 Intake and Output 10/27/16 10/27/16 10/28/16 08:00 16:00 00:00 Intake Total 1035 ml 1421 ml 1359 ml Output Total 1025 ml 1500 ml 1625 ml Balance 10 ml -79 ml -266 ml Result Diagram: 10/27/16 0845 10/28/16 1205 Objective Remarks PHYSICAL EXAMINATION GENERAL: Critically ill 36-year-old male. VITAL SIGNS: pulse of 108, blood pressure 108/68, R 20 saturation 95%, HEENT: Atraumatic, normocephalic. Orally intubated. NECK: Supple. CARDIOVASCULAR EXAM: Tachycardic. Normal S1 and S2. No murmurs. No JVD. PULMONARY EXAM: Bilateral equal air entry. Diffuse rhonchi persist right. Left clear. Acceptable excursions on ventilator. ABDOMEN: Tenderness on palpation. Tensely distended. G-tube in place. BS improved. EXTREMITIES: Warm, well perfused. NEUROLOGIC: Largely obtunded, chronically contractured joints. Cerebral palsy. Opens eyes to voice. A/P Assessment and Plan IMPRESSION: 1. Acute hypoxemic respiratory failure requiring intubation. 2. Lactic acidemia. 3. Acute kidney injury. 4. Aspiration pneumonia -> GNR. 5. Intractable nausea and vomiting. 9. Previous PEG tube placement. 10. History of cerebral palsy. 11. History of developmental delay. 12. History of seizure disorder. 13. History of recurrent aspiration pneumonia. 14. Colon ileus. 15. Hypokalemia. Plan: 1. Diprivan infusion if needed for sedation; daily sedation vacation. 2. Monitor neuro status closely. 3. Continue with vent support and maintain sats above 92%. PRVC mode. 4. Bronchodilators in the form of DuoNeb q. 6. 5. Vent bundle. Soft restraints. 6. CT pulmonary angiogram has been ordered by ED -> no PE. 10. Serial lactic acid. 15. Keep n.p.o. and decompressed, Protonix 40 mg IV daily for GI prophylaxis. 17. Continue with broad-spectrum antibiotics in the form of Zosyn and Zithromax. 18. Monitor CBC. 19. Place on sliding scale insulin with Accu-Chek q. 6 hours for glycemic control. 20. SCDs and heparin sq. 21. Review cultures. 22. Daily SBT. 23. Start TFs soon when ileus resolved. 24. Start enemas and laxatives. 23. Replace K, no narcotics. 24. Reglan Overall impression: He remains critically ill with hypoxemic respiratory failure , unable to wean from ventilator; continues to fail SBT. Right whole lung pneumonia is potentially fatal in this debilitated man. He remains distended from colon ileus and septic from Klebsiella pneumonia. Nutritional status is hampering response to infection. Critical care 34 mins Sanket Estrada MD Oct 28, 2016 14:32
--- NOTE | 2016-10-28 14:49 | HHI.GIFU ---
GI Follow-up Note Consult Follow-up Subjective: Patient laying in bed , intubated, peg tube drainage today -200 cc , had 2 bm's so far, abdominal x-ray some improvement, more awake Objective: PHYSICAL EXAMINATION: Vitals signs stable No fever Vital Signs Date Time Temp Pulse Resp B/P Pulse Ox O2 Delivery O2 Flow Rate FiO2 10/28/16 14:00 92 10/28/16 13:48 99 40 10/28/16 12:00 80 10/28/16 12:00 98.7 80 18 112/76 99 10/28/16 10:00 76 10/28/16 08:34 96 40 10/28/16 08:00 98.9 76 18 106/72 99 10/28/16 08:00 76 10/28/16 08:00 40 HEENT: Pupils round and reactive to light; normocephalic; atraumatic; no jaundice. Throat is clear. NECK: Neck is supple, no JVD, no lymphadenopathy. CHEST: Chest is clear to auscultation and percussion. CARDIAC: Regular rate and rhythm with no murmur gallop or rubs. ABDOMEN: Soft, distended, nontender; no hepatosplenomegaly; bowel sounds are present in all four quadrants, peg tube EXTREMITIES: No clubbing, cyanosis, or edema. SKIN: Normal; no rash; no jaundice. 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 STORE MANAGER: contracture, awake, noncommunicating Available Data (labs, X- Rays, Procedues) : Laboratory Tests Test 10/26/16 10/27/16 10/28/16 20:09 08:45 12:05 Sodium Level 148 MEQ/L 146 MEQ/L 146 MEQ/L Potassium Level 2.6 MEQ/L 3.0 MEQ/L 2.5 MEQ/L Chloride Level 115 MEQ/L 115 MEQ/L 111 MEQ/L Carbon Dioxide Level 26.0 MEQ/L 23.6 MEQ/L 25.8 MEQ/L Anion Gap 7 MEQ/L 7 MEQ/L 9 MEQ/L Blood Urea Nitrogen 4 MG/DL 2 MG/DL 1 MG/DL Creatinine 0.66 MG/DL 0.70 MG/DL 0.72 MG/DL Estimat Glomerular Filtration 167 ML/MIN 156 ML/MIN 151 ML/MIN Rate Random Glucose 117 MG/DL 86 MG/DL 96 MG/DL Calcium Level 7.9 MG/DL 7.7 MG/DL 7.6 MG/DL Phosphorus Level 0.9 MG/DL Magnesium Level 2.1 MG/DL White Blood Count 14.1 TH/MM3 Red Blood Count 4.56 MIL/MM3 Hemoglobin 9.2 GM/DL Hematocrit 30.2 % Mean Corpuscular Volume 66.2 FL Mean Corpuscular Hemoglobin 20.2 PG Mean Corpuscular Hemoglobin 30.5 % Concent Red Cell Distribution Width 25.3 % Platelet Count 213 TH/MM3 Mean Platelet Volume 9.0 FL Neutrophils (%) (Auto) 79.5 % Lymphocytes (%) (Auto) 15.8 % Monocytes (%) (Auto) 2.4 % Eosinophils (%) (Auto) 2.2 % Basophils (%) (Auto) 0.1 % Neutrophils # (Auto) 11.2 TH/MM3 Lymphocytes # (Auto) 2.2 TH/MM3 Monocytes # (Auto) 0.3 TH/MM3 Eosinophils # (Auto) 0.3 TH/MM3 Basophils # (Auto) 0.0 TH/MM3 CBC Comment AUTO DIFF Differential Comment AUTO DIFF CONFIRMED Platelet Estimate NORMAL Platelet Morphology Comment NORMAL Target Cells 2+ Acanthocytes OCC Total Bilirubin 0.5 MG/DL Aspartate Amino Transf 13 U/L (AST/SGOT) Alanine Aminotransferase 16 U/L (ALT/SGPT) Alkaline Phosphatase 70 U/L Total Protein 6.5 GM/DL Albumin 1.9 GM/DL Lipase 68 U/L ASSESSMENT/PLAN: ileus clinically and radiographically better aspiration pneumonia Recommendations continue current regimen abdominal x-ray in am if not better consider colonoscopy relistore prn It was a pleasure seeing Remigio Thakur. Thank you for this consult. Entered by: Shayla Coronel MD Oct 28, 2016 14:48
[2016-10-28] MEDS: AZITHROMYCIN INJ 500 MG in SODIUM CHLOR 0.9% 250 ML INJ 250 ML IV SCH (17:48)
[2016-10-29] VITALS (20 sets, daily range): BP systolic 96–112; BP diastolic 71–82; PULSE 64–90; RESP 16–29; TEMP 97–98.5; O2SAT 97–100
[2016-10-29 00:19] LABS: POTASSIUM 2.8 MEQ/L (3.5-5.1)
[2016-10-29] MEDS: HEPARIN SODIUM - SQ 10,000 UNITS/ML VIAL SQ SCH ×3 (00:31→15:07)
[2016-10-29] MEDS: POTASSIUM CHLOR 20 MEQ PREMIX 100 ML IV PRN ×4 (00:31→06:44)
[2016-10-29] MEDS: PROPOFOL 1000 MG/100 ML INJ 100 ML IV SCH ×2 (02:59→15:07)
[2016-10-29] MEDS: DEXT 5%-NACL 0.45% 1000 ML INJ 1,000 ML IV SCH ×3 (03:15→19:50)
[2016-10-29] MEDS: CHLORHEXIDINE GLUCONATE 2 % 1 PACK (2 CLOTHS) TOP SCH (04:00)
[2016-10-29] MEDS: PIPERACIL-TAZO 4.5 GM PREMIX 100 ML IV SCH ×4 (05:00→19:50)
[2016-10-29] MEDS: INSULIN NovoLIN REGULAR SUPPLEMENTAL SCALE SQ SCH ×4 (06:00→17:43)
[2016-10-29] MEDS: OXYBUTYNIN CHLORIDE 5 MG TAB PO SCH ×3 (06:00→19:49)
[2016-10-29] MEDS: PHENYTOIN SUSP 100 MG/4 ML CUP PEG SCH ×2 (08:22→19:49)
[2016-10-29] MEDS: POLYETHYLENE GLYCOL 17 GM PKG PO SCH (08:22)
[2016-10-29] MEDS: TOPIRAMATE 100 MG TAB GT SCH ×2 (08:22→19:50)
[2016-10-29] MEDS: FLUDROCORTISONE ACETATE 0.1 MG TAB PO SCH (08:22)
[2016-10-29] MEDS: SENNOSIDES SYRUP 8.8 MG/5 ML CUP PO SCH (08:22)
[2016-10-29] MEDS: PANTOPRAZOLE SODIUM 40 MG VIAL IV SCH (08:22)
[2016-10-29] MEDS: LACTULOSE SYRUP 20 GM/30 ML CUP PO SCH ×4 (08:22→19:49)
[2016-10-29] MEDS: BISACODYL 10 MG SUPP RECTAL SCH (08:23)
[2016-10-29] MEDS: SOD PHOSPHATE/SOD BIPHOSPHATE (ADULT) ENEMA 133ML PR SCH ×2 (08:23→19:51)
--- NOTE | 2016-10-29 10:35 | HHI.IDPN ---
Subjective Subjective Remarks ID COVERAGE Notes reviewed D/W RN On diprivan, but opens eyes when stimulated On CPAP, seems to be tolerating well No fever or hypothermia BP ok, not on pressors No rash UO ok Mr. Thakur is a 36-year-old male with past medical history significant for cerebral palsy, seizure disorder, mental retardation, previous history of hospitalization for aspiration pneumonia. Patient now admitted for Aspiration PNA, Sepsis, acute metabolic encephalopathy and Ileus. Antibiotics Zosyn IV Azithro IV Lines Line sites with no e/o infection Past Medical History reviewed Allergies: Coded Allergies: No Known Allergies (Unverified , 06/21/16) Objective . Vital Signs Date Time Temp Pulse Resp B/P Pulse Ox O2 Delivery O2 Flow Rate FiO2 10/29/16 10:00 78 10/29/16 09:24 30 10/29/16 09:24 100 30 10/29/16 09:24 30 10/29/16 09:10 100 30 10/29/16 08:00 30 10/29/16 08:00 98.2 76 16 109/82 100 10/29/16 08:00 71 10/29/16 06:00 86 10/29/16 04:07 100 30 10/29/16 04:00 83 10/29/16 04:00 40 10/29/16 04:00 98.2 83 17 112/74 100 10/29/16 02:00 66 10/29/16 00:28 97 40 10/29/16 00:00 98.5 74 20 106/74 98 10/29/16 00:00 40 10/29/16 00:00 74 10/28/16 22:00 88 10/28/16 20:48 100 40 10/28/16 20:00 98.2 96 20 127/65 99 10/28/16 20:00 89 10/28/16 20:00 40 10/28/16 18:00 82 10/28/16 17:56 100 40 10/28/16 16:00 98.7 80 16 105/67 100 10/28/16 16:00 80 10/28/16 16:00 40 10/28/16 14:00 92 10/28/16 13:48 99 40 10/28/16 12:00 80 10/28/16 12:00 98.7 80 18 112/76 99 10/28/16 10/28/16 10/29/16 15:00 23:00 07:00 Intake Total 1072 ml 1605 ml 1145 ml Output Total 1000 ml 1375 ml 1125 ml Balance 72 ml 230 ml 20 ml Intake IV Total 1012 ml 1545 ml 1085 ml Tube Irrigant 60 ml 60 ml 60 ml Output Urine Total 600 ml 225 ml 725 ml Gastric Drainage Total 200 ml 400 ml 100 ml Drainage Total 200 ml 750 ml 300 ml # Bowel Movements 1 1 1 . Laboratory Tests Test 10/28/16 10/28/16 12:05 23:30 Sodium Level 146 MEQ/L Potassium Level 2.5 MEQ/L 2.8 MEQ/L Chloride Level 111 MEQ/L Carbon Dioxide Level 25.8 MEQ/L Anion Gap 9 MEQ/L Blood Urea Nitrogen 1 MG/DL Creatinine 0.72 MG/DL Estimat Glomerular Filtration 151 ML/MIN Rate Random Glucose 96 MG/DL 94 MG/DL Calcium Level 7.6 MG/DL Microbiology Date/Time Procedure Status Source Growth 10/27/16 03:30 Aerobic Blood Culture - Preliminary Resulted Blood Peripheral NO GROWTH IN 1 DAY 10/27/16 03:30 Anaerobic Blood Culture - Final Resulted Blood Peripheral QNS - SEE AEROBE REPORT 10/27/16 08:45 Aerobic Blood Culture - Preliminary Resulted Blood Peripheral NO GROWTH IN 1 DAY 10/27/16 08:45 Anaerobic Blood Culture - Preliminary Resulted Blood Peripheral NO GROWTH IN 1 DAY Imaging Last Impressions Abdomen X-Ray 10/27/16 0600 Signed Impressions: Service Date/Time: Thursday, October 27, 2016 05:56 - CONCLUSION: Probable ileus pattern. Close clinical and radiographic followup recommended. Oj Shipley MD Chest X-Ray 10/26/16 0000 Signed Impressions: Service Date/Time: October 08:29 - CONCLUSION: Stable endotracheal tube which appears slightly high. Stable airspace consolidation within the right hemithorax. Iesha Murray MD CT Angiography 10/23/16 1712 Signed Impressions: Service Date/Time: Sunday, October 23, 2016 19:27 - CONCLUSION: 1. Negative for pulmonary embolus. 2. Diffuse bilateral airspace disease most characteristic of aspiration or pneumonia. 3. Endotracheal tube in satisfactory position. There is some mucoid debris in the airways. 4. Gallstones. Ileus. Scoliosis. Michael Feldman MD Abdomen/Pelvis CT 10/23/16 1625 Signed Impressions: Service Date/Time: Sunday, October 23, 2016 19:27 - CONCLUSION: 1. Multiple gallstones. Diffuse ileus. Scoliosis with bilateral hip dysplasia. Basilar lung disease. See chest CT. Michael Feldman MD Physical Exam GENERAL: Awake, NAD, on CPAP SKIN: No rashes. Warm and dry HEAD: Atraumatic. No temporal or scalp tenderness. EYES: Pupils equal round and reactive. No scleral icterus. No injection or drainage. ENT: Nose without bleeding, purulent drainage or septal hematoma. ET in mouth NECK: Trachea midline. Supple, nontender, no meningeal signs. Scar in neck from previous trach CARDIOVASCULAR: HS audible. RESPIRATORY: Has scattered rhonchi GASTROINTESTINAL: Abdomen soft, distended, tense, no rebound or rigidity. PEG tube site ok. MUSCULOSKELETAL: Extremities with contractures and deformities. No joint effusion, or edema noted. NEUROLOGICAL: Opens eyes spontaneously. No interaction. Extremities spastic and contracted Psych: could not be assessed. IV line sites with no e/o infection. Assessment & Plan Remarks Severe sepsis present on admission Pneumonia present on admission: Aspiration pneumonia appears to be most likely. Although patient lives in the community and would like to rule out community- acquired pneumonia as well as atypical pneumonia. Coag negative staph bacteremia likely contamination Acute metabolic encephalopathy: At baseline patient has cerebral palsy with developmental delay but reportedly there has been a change from baseline. High-grade leukocytosis: Likely Leukemoid reaction, SIRS from chemical pneumonitis as well as aspiration related bacterial pneumonia. 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 History of Brina fundoplication as well as exploratory laparotomy for small bowel obstruction. Patient is at risk for recurrent aspiration pneumonia due to his history of Brina fundoplication, developmental delay, seizure disorder, scoliosis, distorted GI as well as skeletal anatomy. Recommendations: Continue Zosyn IV Continue azithromycin Follow cultures Follow clinically Monitor temps Weaning per CCM Seems to be stabilizing D/W Xiao Aragon MD Oct 29, 2016 10:35
--- NOTE | 2016-10-29 13:42 | HHI.CCPN ---
Subjective Remarks/Hospital Course 10/23: Pneumonia, Respiratory Failure, Severe Sepsis - The patient is a 36-year- old male with a past medical history of cerebral palsy, seizure disorder, mental retardation, previous hospitalization for aspiration pneumonia who presented to [facility] ED after family found him more disoriented than usual and had been vomiting. In the ED the patient was found febrile with temperature of 102.1 rectally, tachycardiac with heart rate in the 130s to 150s and tachypneic. In addition the patient was hypoxemic on non-rebreather and he was subsequently intubated with etomidate, vecuronium and placed on full mechanical ventilation. 10/24: Severe sepsis persists despite broad abx coverage. Urine output improving after aggressive resuscitation. 10/25: GNR in sputum. Continue broad abx coverage pending speciation. Gas exchange improved. 10/26: He remains obstructed with a colon ileus and constipation. Right lung infiltrate persists. Bandemia persists. 10/27: Colon is frighteningly large. Hypokalemia complicating ileus. 10/28: Colon much less distended. Hypokalemia persists despite aggressive replacement. Respiratory failure from pneumonia persists. 10/29: Remains orally intubated on mech ventilation. Objective Vital Signs Date Time Temp Pulse Resp B/P Pulse Ox O2 Delivery O2 Flow Rate FiO2 10/29/16 12:27 99 30 10/29/16 12:00 97.9 78 27 104/73 Intake and Output 10/28/16 10/28/16 10/29/16 08:00 16:00 00:00 Intake Total 1140 ml 1072 ml 1605 ml Output Total 1225 ml 1000 ml 1375 ml Balance -85 ml 72 ml 230 ml Result Diagram: 10/27/16 0845 10/29/16 1156 Imaging Last Impressions Abdomen X-Ray 10/28/16 0600 Signed Impressions: Service Date/Time: Friday, October 28, 2016 05:08 - CONCLUSION: Left lower lobe pulmonary consolidation. There are gas-filled dilated bowel loops identified though slightly decreased. Oj Shipley MD Chest X-Ray 10/26/16 0000 Signed Impressions: Service Date/Time: October 08:29 - CONCLUSION: Stable endotracheal tube which appears slightly high. Stable airspace consolidation within the right hemithorax. Iesha Murray MD CT Angiography 10/23/16 1712 Signed Impressions: Service Date/Time: Sunday, October 23, 2016 19:27 - CONCLUSION: 1. Negative for pulmonary embolus. 2. Diffuse bilateral airspace disease most characteristic of aspiration or pneumonia. 3. Endotracheal tube in satisfactory position. There is some mucoid debris in the airways. 4. Gallstones. Ileus. Scoliosis. Michael Feldman MD Abdomen/Pelvis CT 10/23/16 1625 Signed Impressions: Service Date/Time: Sunday, October 23, 2016 19:27 - CONCLUSION: 1. Multiple gallstones. Diffuse ileus. Scoliosis with bilateral hip dysplasia. Basilar lung disease. See chest CT. Michael Feldman MD Objective Remarks PHYSICAL EXAMINATION GENERAL: Critically ill 36-year-old male. VITAL SIGNS: pulse of 108, blood pressure 108/68, R 20 saturation 95%, HEENT: Atraumatic, normocephalic. Orally intubated. NECK: Supple. CARDIOVASCULAR EXAM: Tachycardic. Normal S1 and S2. No murmurs. No JVD. PULMONARY EXAM: Bilateral equal air entry. Diffuse rhonchi persist right. Left clear. Acceptable excursions on ventilator. ABDOMEN: Tenderness on palpation. Tensely distended. G-tube in place. BS improved. EXTREMITIES: Warm, well perfused. NEUROLOGIC: Largely obtunded, chronically contractured joints. Cerebral palsy. Opens eyes to voice. Urinary Catheter: Yes Assessment to: Continue A/P Assessment and Plan IMPRESSION: 1. Acute hypoxemic respiratory failure requiring intubation. 2. Lactic acidemia. 3. Acute kidney injury. 4. Aspiration pneumonia -> GNR. 5. Intractable nausea and vomiting. 9. Previous PEG tube placement. 10. History of cerebral palsy. 11. History of developmental delay. 12. History of seizure disorder. 13. History of recurrent aspiration pneumonia. 14. Colon ileus. 15. Hypokalemia. Plan: 1. Diprivan infusion if needed for sedation; daily sedation vacation. 2. Monitor neuro status closely. 3. Continue with vent support and maintain sats above 92%. PRVC mode. 4. Bronchodilators in the form of DuoNeb q. 6. 5. Vent bundle. Soft restraints. 6. CT pulmonary angiogram has been ordered by ED -> no PE. 10. Serial lactic acid. 15. Start J tube feeds with Jevity @ 30cc/hr and advance to 50cc/hr if tolerated. Protonix 40 mg IV daily for GI prophylaxis. 17. Continue with broad-spectrum antibiotics in the form of Zosyn and Zithromax. 18. Monitor CBC. 19. Place on sliding scale insulin with Accu-Chek q. 6 hours for glycemic control. 20. SCDs and heparin sq. 21. Review cultures. 22. Daily SBT. 23. Check Dilantin level 24. Continue enemas and laxatives. 23. Replace K, no narcotics. 24. Reglan Overall impression: He remains critically ill with hypoxemic respiratory failure , unable to wean from ventilator; continues to fail SBT. Right whole lung pneumonia is potentially fatal in this debilitated man. He remains distended from colon ileus and septic from Klebsiella pneumonia. Nutritional status is hampering response to infection. Critical care 30 mins Kirk Yates MD Oct 29, 2016 13:42
--- NOTE | 2016-10-29 13:57 | HHI.GIFU ---
GI Follow-up Note Consult Follow-up Subjective: Patient laying in bed intubated, more awake , had multiple bowel movements. tube feeding will be started Objective: PHYSICAL EXAMINATION: Vitals signs stable No fever Vital Signs Date Time Temp Pulse Resp B/P Pulse Ox O2 Delivery O2 Flow Rate FiO2 10/29/16 12:27 99 30 10/29/16 12:00 30 10/29/16 12:00 97.9 78 27 104/73 100 10/29/16 12:00 73 10/29/16 10:00 78 10/29/16 09:24 30 10/29/16 09:24 100 30 10/29/16 09:24 30 10/29/16 09:10 100 30 10/29/16 08:00 30 10/29/16 08:00 98.2 76 16 109/82 100 10/29/16 08:00 71 10/29/16 06:00 86 HEENT: Pupils round and reactive to light; normocephalic; atraumatic; no jaundice. Throat is clear. NECK: Neck is supple, no JVD, no lymphadenopathy. CHEST: Chest is clear to auscultation and percussion. CARDIAC: Regular rate and rhythm with no murmur gallop or rubs. ABDOMEN: Soft, distended, nontender; no hepatosplenomegaly; bowel sounds are present in all four quadrant, peg tube ion place . EXTREMITIES: contractures SKIN: Normal; no rash; no jaundice. 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 OFFICE REP: contractures, awake Available Data (labs, X- Rays, Procedues) : Laboratory Tests Test 10/28/16 10/28/16 10/29/16 12:05 23:30 11:56 Sodium Level 146 MEQ/L Potassium Level 2.5 MEQ/L 2.8 MEQ/L 3.7 MEQ/L Chloride Level 111 MEQ/L Carbon Dioxide Level 25.8 MEQ/L Anion Gap 9 MEQ/L Blood Urea Nitrogen 1 MG/DL Creatinine 0.72 MG/DL Estimat Glomerular Filtration 151 ML/MIN Rate Random Glucose 96 MG/DL 94 MG/DL Calcium Level 7.6 MG/DL ASSESSMENT/PLAN: aspiration pneumonia better ileus -improved Recommendations ok to start tube feeding additional dose of Relistor continue current bowel regimen It was a pleasure seeing Remigio Thakur. Thank you for this consult. Entered by: Shayla Coronel MD Oct 29, 2016 13:57
[2016-10-29] MEDS: AZITHROMYCIN INJ 500 MG in SODIUM CHLOR 0.9% 250 ML INJ 250 ML IV SCH (17:36)
[2016-10-30] VITALS (19 sets, daily range): BP systolic 95–115; BP diastolic 69–81; PULSE 69–104; RESP 16–21; TEMP 94.1–98.2; O2SAT 98–100
[2016-10-30] MEDS: HEPARIN SODIUM - SQ 10,000 UNITS/ML VIAL SQ SCH ×3 (00:31→15:36)
[2016-10-30] MEDS: DEXT 5%-NACL 0.45% 1000 ML INJ 1,000 ML IV SCH ×3 (03:15→20:31)
[2016-10-30] MEDS: CHLORHEXIDINE GLUCONATE 2 % 1 PACK (2 CLOTHS) TOP SCH (03:27)
[2016-10-30] MEDS: PROPOFOL 1000 MG/100 ML INJ 100 ML IV SCH ×3 (03:32→20:31)
[2016-10-30 04:17] LABS: AUTOMATED NEUTROPHIL # 5.3 TH/MM3 (1.8-7.7); BASOPHIL % 0.3 % (0.0-2.0); EOSINOPHIL # 0.6 TH/MM3 (0-0.4); EOSINOPHIL % 6.1 % (0.0-4.0); HEMATOCRIT 36.7 % (39.0-51.0); LYMPH % 32.5 % (9.0-44.0); MEAN CELL VOLUME 67.7 FL (80.0-100.0); MEAN CORPUSCULAR HEMOGLOBIN 20.4 PG (27.0-34.0); MEAN CORPUSCULAR HGB CONC 30.2 % (32.0-36.0); MONO % 4.1 % (0.0-8.0); PLATELET COUNT 494 TH/MM3 (150-450); RED BLOOD COUNT 5.43 MIL/MM3 (4.50-5.90); RED CELL DISTRIBUTION WIDTH 27.2 % (11.6-17.2); WHITE BLOOD COUNT 9.4 TH/MM3 (4.0-11.0)
[2016-10-30 04:23] LABS: HEMO FLAGS AUTO DIFF
[2016-10-30] MEDS: PIPERACIL-TAZO 4.5 GM PREMIX 100 ML IV SCH ×4 (04:24→21:49)
[2016-10-30 04:44] LABS: ALKALINE PHOSPHATASE 66 U/L (45-117); ALT (GPT) 13 U/L (12-78); ANION GAP 10 MEQ/L (5-15); AST (GOT) 11 U/L (15-37); BICARBONATE 21.2 MEQ/L (21.0-32.0); BLOOD UREA NITROGEN 2 MG/DL (7-18); CHLORIDE 117 MEQ/L (98-107); GLOMERULAR FILTRATION RATE 211 ML/MIN (>89); SODIUM (NA) 148 MEQ/L (136-145); TOTAL BILIRUBIN ADULT 0.3 MG/DL (0.2-1.0)
[2016-10-30 04:54] LABS: POTASSIUM 2.3 MEQ/L (3.5-5.1)
[2016-10-30] MEDS: OXYBUTYNIN CHLORIDE 5 MG TAB PO SCH ×3 (05:21→20:31)
[2016-10-30] MEDS: INSULIN NovoLIN REGULAR SUPPLEMENTAL SCALE SQ SCH ×4 (05:22→17:17)
[2016-10-30] MEDS: POTASSIUM CHLOR 20 MEQ PREMIX 100 ML IV PRN ×8 (05:24→21:30)
--- NOTE | 2016-10-30 05:41 | RADRPT ---
EXAM DATE/TIME: 10/30/2016 04:45 [place] COMPARISON: ABDOMEN KUB ONLY, October 28, 2016, 5:08. INDICATIONS : Shortness of breath, possible pulmonary disease. MEDICAL HISTORY : Cardiovascular disease. Cerebral palsy SURGICAL HISTORY : None. ENCOUNTER: Subsequent ACUITY: 1 week PAIN SCORE: Non-responsive. LOCATION: Bilateral chest FINDINGS: Moderate to severe patchy airspace consolidation again seen throughout the right lung, not significan tly changed. There is mild consolidation of the left lung base, probably slightly improved. No large effusion seen. No pneumothorax. Heart size stable, within normal limits. Endotracheal tube tip is about 3 cm above the rosi. There is a nasogastric tube with tip in the upp er stomach just below the GE junction.. CONCLUSION: 1. No significant change widespread infiltrate right lung. 2. Modestly improved left base consolidation. 3. Nasogastric tube tip is just below the GE junction. Endotracheal tube tip is unchanged. Mg Polanco MD on October 30, 2016 at 5:38 Board Certified Radiologist. This report was verified electronically.
[2016-10-30 06:37] LABS: SCAN/DIFF AUTO DIFF CONFIRMED
[2016-10-30 06:38] LABS: ACANTHOCYTES OCC (NORMAL); PLATELET ESTIMATE SMEAR NORMAL (NORMAL); PLATELET MORPHOLOGY NORMAL (NORMAL); TARGET CELLS 1+ (NORMAL)
[2016-10-30 06:39] LABS: KERATOCYTES OCC (NORMAL)
[2016-10-30] MEDS: PHENYTOIN SUSP 100 MG/4 ML CUP PEG SCH ×2 (08:48→20:31)
[2016-10-30] MEDS: TOPIRAMATE 100 MG TAB GT SCH ×2 (08:48→20:31)
[2016-10-30] MEDS: FLUDROCORTISONE ACETATE 0.1 MG TAB PO SCH (08:48)
[2016-10-30] MEDS: LACTULOSE SYRUP 20 GM/30 ML CUP PO SCH ×4 (08:49→20:31)
[2016-10-30] MEDS: BISACODYL 10 MG SUPP RECTAL SCH (08:49)
[2016-10-30] MEDS: POLYETHYLENE GLYCOL 17 GM PKG PO SCH (08:49)
[2016-10-30] MEDS: SENNOSIDES SYRUP 8.8 MG/5 ML CUP PO SCH (08:49)
[2016-10-30] MEDS: PANTOPRAZOLE SODIUM 40 MG VIAL IV SCH (08:49)
[2016-10-30] MEDS: SOD PHOSPHATE/SOD BIPHOSPHATE (ADULT) ENEMA 133ML PR SCH (08:49)
--- NOTE | 2016-10-30 13:14 | HHI.GIFU ---
Subjective Remarks Resting in bed. Lightly sedated on vent. Abdominal distention improved. Multiple pasty bowel movements. Nurse restarted TF last night, but he did not tolerate this. (Tabatha Garza) Objective Vitals I&O Vital Signs Date Time Temp Pulse Resp B/P Pulse Ox O2 Delivery O2 Flow Rate FiO2 10/30/16 12:04 100 30 10/30/16 12:00 74 10/30/16 12:00 94.6 74 21 106/71 100 10/30/16 12:00 30 10/30/16 10:00 70 10/30/16 08:53 30 10/30/16 08:35 30 10/30/16 08:35 100 30 10/30/16 08:00 94.1 74 16 115/81 98 10/30/16 08:00 72 10/30/16 08:00 30 10/30/16 06:00 74 10/30/16 04:00 69 10/30/16 04:00 30 10/30/16 04:00 97.0 69 17 95/74 100 10/30/16 03:15 100 30 10/30/16 02:00 74 10/30/16 00:20 99 30 10/30/16 00:00 97.5 73 18 105/73 99 10/30/16 00:00 73 10/30/16 00:00 30 10/29/16 22:00 73 10/29/16 20:33 99 30 10/29/16 20:00 97.0 90 16 107/76 99 10/29/16 20:00 79 10/29/16 20:00 30 10/29/16 18:00 88 10/29/16 17:56 99 30 10/29/16 17:55 30 10/29/16 16:00 97.8 82 29 96/71 100 10/29/16 16:00 82 10/29/16 16:00 30 10/29/16 15:45 100 30 10/29/16 14:00 64 I/O 10/29/16 10/29/16 10/29/16 10/30/16 10/30/16 10/30/16 07:00 15:00 23:00 07:00 15:00 23:00 Intake Total 1145 ml 1383 ml 646 ml 1281 ml Output Total 1125 ml 800 ml 500 ml 700 ml Balance 20 ml 583 ml 146 ml 581 ml Intake IV Total 1085 ml 1350 ml 526 ml 1221 ml Tube Feeding 13 ml 60 ml Tube Irrigant 60 ml 20 ml Other 120 ml Output Urine Total 725 ml 250 ml 150 ml 250 ml Gastric Drainage Total 100 ml 500 ml 150 ml 450 ml Drainage Total 300 ml 50 ml 200 ml # Bowel Movements 1 1 1 Laboratory Laboratory Tests Test 10/30/16 04:03 White Blood Count 9.4 Red Blood Count 5.43 Hemoglobin 11.1 Hematocrit 36.7 Mean Corpuscular Volume 67.7 Mean Corpuscular Hemoglobin 20.4 Mean Corpuscular Hemoglobin 30.2 Concent Red Cell Distribution Width 27.2 Platelet Count 494 Mean Platelet Volume 9.1 Neutrophils (%) (Auto) 57.0 Lymphocytes (%) (Auto) 32.5 Monocytes (%) (Auto) 4.1 Eosinophils (%) (Auto) 6.1 Basophils (%) (Auto) 0.3 Neutrophils # (Auto) 5.3 Lymphocytes # (Auto) 3.0 Monocytes # (Auto) 0.4 Eosinophils # (Auto) 0.6 Basophils # (Auto) 0.0 CBC Comment AUTO DIFF Differential Comment AUTO DIFF CONFIRMED Platelet Estimate NORMAL Platelet Morphology Comment NORMAL Target Cells 1+ Acanthocytes OCC Keratocytes OCC Sodium Level 148 Potassium Level 2.3 Chloride Level 117 Carbon Dioxide Level 21.2 Anion Gap 10 Blood Urea Nitrogen 2 Creatinine 0.54 Estimat Glomerular Filtration 211 Rate Random Glucose 96 Calcium Level 7.6 Total Bilirubin 0.3 Aspartate Amino Transf 11 (AST/SGOT) Alanine Aminotransferase 13 (ALT/SGPT) Alkaline Phosphatase 66 Total Protein 6.9 Albumin 1.9 Date/Time Procedure Status Source Growth 10/27/16 08:45 Aerobic Blood Culture - Preliminary Resulted Blood Peripheral NO GROWTH IN 3 DAYS 10/27/16 08:45 Anaerobic Blood Culture - Preliminary Resulted Blood Peripheral NO GROWTH IN 3 DAYS Imaging Last Impressions Chest X-Ray 10/30/16 06 Signed Impressions: Service Date/Time: Sunday, October 30, 2016 04:45 - CONCLUSION: 1. No significant change widespread infiltrate right lung. 2. Modestly improved left base consolidation. 3. Nasogastric tube tip is just below the GE junction. Endotracheal tube tip is unchanged. Mg Polanco MD Abdomen X-Ray 10/28/16 0600 Signed Impressions: Service Date/Time: Friday, October 28, 2016 05:08 - CONCLUSION: Left lower lobe pulmonary consolidation. There are gas-filled dilated bowel loops identified though slightly decreased. Oj Shipley MD CT Angiography 10/23/16 1712 Signed Impressions: Service Date/Time: Sunday, October 23, 2016 19:27 - CONCLUSION: 1. Negative for pulmonary embolus. 2. Diffuse bilateral airspace disease most characteristic of aspiration or pneumonia. 3. Endotracheal tube in satisfactory position. There is some mucoid debris in the airways. 4. Gallstones. Ileus. Scoliosis. Michael Feldman MD Abdomen/Pelvis CT 10/23/16 1625 Signed Impressions: Service Date/Time: Sunday, October 23, 2016 19:27 - CONCLUSION: 1. Multiple gallstones. Diffuse ileus. Scoliosis with bilateral hip dysplasia. Basilar lung disease. See chest CT. Michael Feldman MD Physical Exam HEENT: Normocephalic; atraumatic CHEST: Resp. even/unlabored. Diminished. OETT to vent. CARDIAC: RRR. ABDOMEN: Soft, mildly distended, no hepatosplenomegaly; bowel sounds are hypoactive. G tube to gravity. NGT to LIWS EXTREMITIES: Contracted MEDICAL CARE MANAGER: Sedated on vent. (Tabatha Garza) Assessment and Plan Plan ASSESSMENT: - Ileus, Constipation. Abdomen/Pelvis CT (10/23/16)-----> 1. Multiple gallstones. Diffuse ileus. Scoliosis with bilateral hip dysplasia. Basilar lung disease. See chest CT. Abdomen X-Ray (10/27/16)-----> Probable ileus pattern. Close clinical and radiographic followup recommended. NGT was placed for increased secretions in esophagus. Abdominal distention improved. Multiple pasty bowel movements. Nurse reports that he did not tolerate the TF. ? Conversion of gastrostomy tube to G/J tube. Fleets enemas, Dulcolax Suppository, Miralax. - Sepsis/PNA. WBC 9.4. On vent. Abx per ID, Nebs. - Anemia. 11.1/36.7 - SIM with Hypernatremia, hypokalemia. Per CCM - Hx cerebral palsey, development delay, sz disorder PLAN: - NPO - Cont. PPI - Cont. Miralax - Cont. Dulcolax - Cont. Senna - Cont. Lactulose for now - D/C Fleets enemas - IR consult for conversion of gastrostomy tube to G/J tube - Pt seen and examined by Dr. Mackay and myself and this note is written on his behalf (Tabatha Garza) Physician Comments Patient seen and examined Agree with above Continue with current supportive care Monitor labs (David Mackay MD) Tabatha Garza Oct 30, 2016 13:14 David Mackay MD Oct 30, 2016 22:42
--- NOTE | 2016-10-30 14:50 | HHI.CCPN ---
Subjective Remarks/Hospital Course 10/23: Pneumonia, Respiratory Failure, Severe Sepsis - The patient is a 36-year- old male with a past medical history of cerebral palsy, seizure disorder, mental retardation, previous hospitalization for aspiration pneumonia who presented to [facility] ED after family found him more disoriented than usual and had been vomiting. In the ED the patient was found febrile with temperature of 102.1 rectally, tachycardiac with heart rate in the 130s to 150s and tachypneic. In addition the patient was hypoxemic on non-rebreather and he was subsequently intubated with etomidate, vecuronium and placed on full mechanical ventilation. 10/24: Severe sepsis persists despite broad abx coverage. Urine output improving after aggressive resuscitation. 10/25: GNR in sputum. Continue broad abx coverage pending speciation. Gas exchange improved. 10/26: He remains obstructed with a colon ileus and constipation. Right lung infiltrate persists. Bandemia persists. 10/27: Colon is frighteningly large. Hypokalemia complicating ileus. 10/28: Colon much less distended. Hypokalemia persists despite aggressive replacement. Respiratory failure from pneumonia persists. 10/29: Remains orally intubated on mech ventilation. 10/30: Awake, orally intubated on mechanical ventilation. Hypothermic today. Started on Taryn hugger. Did not tolerate tube feeds overnight. OG tube To suction currently. Objective Vital Signs Date Time Temp Pulse Resp B/P Pulse Ox O2 Delivery O2 Flow Rate FiO2 10/30/16 14:00 86 10/30/16 12:04 100 30 10/30/16 12:00 94.6 21 106/71 Intake and Output 10/29/16 10/29/16 10/30/16 08:00 16:00 00:00 Intake Total 1145 ml 1383 ml 646 ml Output Total 1125 ml 800 ml 500 ml Balance 20 ml 583 ml 146 ml Result Diagram: 10/30/16 0403 10/30/16 0403 Imaging Last Impressions Abdomen X-Ray 10/28/16 0600 Signed Impressions: Service Date/Time: Friday, October 28, 2016 05:08 - CONCLUSION: Left lower lobe pulmonary consolidation. There are gas-filled dilated bowel loops identified though slightly decreased. Oj Shipley MD Chest X-Ray 10/26/16 0000 Signed Impressions: Service Date/Time: October 08:29 - CONCLUSION: Stable endotracheal tube which appears slightly high. Stable airspace consolidation within the right hemithorax. Iesha Murray MD CT Angiography 10/23/16 1712 Signed Impressions: Service Date/Time: Sunday, October 23, 2016 19:27 - CONCLUSION: 1. Negative for pulmonary embolus. 2. Diffuse bilateral airspace disease most characteristic of aspiration or pneumonia. 3. Endotracheal tube in satisfactory position. There is some mucoid debris in the airways. 4. Gallstones. Ileus. Scoliosis. Michael Feldman MD Abdomen/Pelvis CT 10/23/16 1625 Signed Impressions: Service Date/Time: Sunday, October 23, 2016 19:27 - CONCLUSION: 1. Multiple gallstones. Diffuse ileus. Scoliosis with bilateral hip dysplasia. Basilar lung disease. See chest CT. Michael Feldman MD Objective Remarks PHYSICAL EXAMINATION GENERAL: Critically ill 36-year-old male. HEENT: Atraumatic, normocephalic. Orally intubated. NECK: Supple. CARDIOVASCULAR EXAM: Tachycardic. Normal S1 and S2. No murmurs. No JVD. PULMONARY EXAM: Bilateral equal air entry. Diffuse rhonchi persist right. Left clear. Acceptable excursions on ventilator. ABDOMEN: Tenderness on palpation. firm, distended. G-tube in place. BS improved. EXTREMITIES: Warm, well perfused. NEUROLOGIC: Largely obtunded, chronically contractured joints. Cerebral palsy. Opens eyes to voice. A/P Assessment and Plan IMPRESSION: 1. Acute hypoxemic respiratory failure requiring intubation. 2. Lactic acidemia. 3. Acute kidney injury. 4. Aspiration pneumonia -> GNR. 5. Intractable nausea and vomiting. 9. Previous PEG tube placement. 10. History of cerebral palsy. 11. History of developmental delay. 12. History of seizure disorder. 13. History of recurrent aspiration pneumonia. 14. Colon ileus. 15. Hypokalemia. Plan: 1. Diprivan infusion if needed for sedation; daily sedation vacation. 2. Monitor neuro status closely. 3. Continue with vent support and maintain sats above 92%. PRVC mode. 4. Bronchodilators in the form of DuoNeb q. 6. 5. Vent bundle. Soft restraints. 6. CT pulmonary angiogram -> no PE. 10. Serial lactic acid. 15. Did not tolerate J-tube feeds on 10/29. Protonix 40 mg IV daily for GI prophylaxis. 17. Continue with broad-spectrum antibiotics in the form of Zosyn and Zithromax. 18. Monitor CBC. 19. Place on sliding scale insulin with Accu-Chek q. 6 hours for glycemic control. 20. SCDs and heparin sq. 21. Review cultures. 22. Daily SBT. 23. Check Dilantin level 24. On laxatives. Fleets enema stopped 10/30 23. Replace K, no narcotics. 24. Reglan Overall impression: He remains critically ill with hypoxemic respiratory failure , unable to wean from ventilator; continues to fail SBT. Right whole lung pneumonia is potentially fatal in this debilitated man. He remains distended from colon ileus and septic from Klebsiella pneumonia. Nutritional status is hampering response to infection. Critical care 30 mins Kirk Yates MD Oct 30, 2016 14:50
[2016-10-30] MEDS: AZITHROMYCIN INJ 500 MG in SODIUM CHLOR 0.9% 250 ML INJ 250 ML IV SCH (17:17)
[2016-10-30 17:18] LABS: BICARBONATE 21.4 MEQ/L (21.0-32.0)
[2016-10-30 17:32] LABS: CALCIUM-PROTEIN CORRECTED 7.5 MG/DL (8.5-10.1)
[2016-10-31] VITALS (21 sets, daily range): BP systolic 96–112; BP diastolic 51–74; PULSE 85–101; RESP 16–21; TEMP 96.8–99; O2SAT 97–100
[2016-10-31] MEDS: CHLORHEXIDINE GLUCONATE 2 % 1 PACK (2 CLOTHS) TOP SCH (04:00)
[2016-10-31] MEDS: DEXT 5%-NACL 0.45% 1000 ML INJ 1,000 ML IV SCH ×3 (04:07→22:06)
[2016-10-31] MEDS: PIPERACIL-TAZO 4.5 GM PREMIX 100 ML IV SCH ×2 (04:22→10:48)
[2016-10-31] MEDS: OXYBUTYNIN CHLORIDE 5 MG TAB PO SCH ×3 (04:22→22:04)
[2016-10-31] MEDS: POLYETHYLENE GLYCOL 17 GM PKG PO SCH (09:00)
[2016-10-31] MEDS: SENNOSIDES SYRUP 8.8 MG/5 ML CUP PO SCH (09:00)
[2016-10-31] MEDS: BISACODYL 10 MG SUPP RECTAL SCH (09:00)
[2016-10-31] MEDS: LACTULOSE SYRUP 20 GM/30 ML CUP PO SCH ×3 (09:00→17:43)
[2016-10-31] MEDS: PANTOPRAZOLE SODIUM 40 MG VIAL IV SCH (09:25)
[2016-10-31] MEDS: PHENYTOIN SUSP 100 MG/4 ML CUP PEG SCH ×2 (09:25→22:04)
[2016-10-31] MEDS: TOPIRAMATE 100 MG TAB GT SCH ×2 (09:36→22:04)
[2016-10-31] MEDS: FLUDROCORTISONE ACETATE 0.1 MG TAB PO SCH (09:36)
--- NOTE | 2016-10-31 12:34 | HHI.IDPN ---
Subjective Subjective Remarks Mr. Thakur is a 36-year-old male with past medical history significant for cerebral palsy, seizure disorder, mental retardation, previous history of hospitalization for aspiration pneumonia. Patient now admitted for Aspiration PNA, Sepsis, acute metabolic encephalopathy and Ileus. Notes reviewed D/W RN Opens eyes spontaneously. Warming blanket on. BP ok, not on pressors No rash UO ok Large liquid BMs was on lactulose for ileus. Plan for GJ tube per RN. Antibiotics Zosyn IV Azithro IV Lines Line sites with no e/o infection Past Medical History reviewed Allergies: Coded Allergies: No Known Allergies (Unverified , 06/21/16) Objective . Vital Signs Date Time Temp Pulse Resp B/P Pulse Ox O2 Delivery O2 Flow Rate FiO2 10/31/16 12:00 30 10/31/16 12:00 101 10/31/16 12:00 98.1 101 16 105/64 98 10/31/16 11:59 97 30 10/31/16 10:00 93 10/31/16 08:00 99.0 95 16 96/51 97 10/31/16 08:00 95 10/31/16 08:00 30 10/31/16 07:49 98 30 10/31/16 06:00 90 10/31/16 04:30 97 30 10/31/16 04:00 30 10/31/16 04:00 90 10/31/16 04:00 97.3 90 16 101/62 97 10/31/16 02:00 92 10/31/16 01:06 99 30 10/31/16 00:00 92 10/31/16 00:00 30 10/31/16 00:00 96.8 92 17 104/73 100 10/30/16 22:29 98 30 10/30/16 22:00 104 10/30/16 20:00 30 10/30/16 20:00 94 10/30/16 20:00 98.2 94 19 113/74 100 10/30/16 19:50 100 30 10/30/16 18:00 96 10/30/16 16:03 100 30 10/30/16 16:00 98 10/30/16 16:00 97.5 98 19 101/69 99 10/30/16 16:00 30 10/30/16 14:00 86 10/30/16 10/30/1610/31/17 15:00 23:00 07:00 Intake Total 1488 ml 1428 ml 1431 ml Output Total 525 ml 625 ml 925 ml Balance 963 ml 803 ml 506 ml Intake IV Total 1468 ml 1368 ml 1371 ml Tube Irrigant 20 ml 60 ml 60 ml Output Urine Total 425 ml 200 ml 650 ml Stool Total 100 ml 50 ml Gastric Drainage Total 100 ml 325 ml 225 ml # Bowel Movements 5 . Laboratory Tests Test 10/30/16 04:03 White Blood Count 9.4 TH/MM3 Red Blood Count 5.43 MIL/MM3 Hemoglobin 11.1 GM/DL Hematocrit 36.7 % Mean Corpuscular Volume 67.7 FL Mean Corpuscular Hemoglobin 20.4 PG Mean Corpuscular Hemoglobin 30.2 % Concent Red Cell Distribution Width 27.2 % Platelet Count 494 TH/MM3 Mean Platelet Volume 9.1 FL Neutrophils (%) (Auto) 57.0 % Lymphocytes (%) (Auto) 32.5 % Monocytes (%) (Auto) 4.1 % Eosinophils (%) (Auto) 6.1 % Basophils (%) (Auto) 0.3 % Neutrophils # (Auto) 5.3 TH/MM3 Lymphocytes # (Auto) 3.0 TH/MM3 Monocytes # (Auto) 0.4 TH/MM3 Eosinophils # (Auto) 0.6 TH/MM3 Basophils # (Auto) 0.0 TH/MM3 CBC Comment AUTO DIFF Differential Comment AUTO DIFF CONFIRMED Platelet Estimate NORMAL Platelet Morphology Comment NORMAL Target Cells 1+ Acanthocytes OCC Keratocytes OCC Laboratory Tests Test 10/30/16 10/30/16 04:03 16:20 Sodium Level 148 MEQ/L 148 MEQ/L Potassium Level 2.3 MEQ/L 3.0 MEQ/L Chloride Level 117 MEQ/L 116 MEQ/L Carbon Dioxide Level 21.2 MEQ/L 21.4 MEQ/L Anion Gap 10 MEQ/L 11 MEQ/L Blood Urea Nitrogen 2 MG/DL 2 MG/DL Creatinine 0.54 MG/DL 0.58 MG/DL Estimat Glomerular Filtration 211 ML/MIN 194 ML/MIN Rate Random Glucose 96 MG/DL 108 MG/DL Calcium Level 7.6 MG/DL 7.2 MG/DL Total Bilirubin 0.3 MG/DL Aspartate Amino Transf 11 U/L (AST/SGOT) Alanine Aminotransferase 13 U/L (ALT/SGPT) Alkaline Phosphatase 66 U/L Total Protein 6.9 GM/DL 6.5 GM/DL Albumin 1.9 GM/DL Protein Corrected Calcium 7.5 MG/DL Imaging Last Impressions Abdomen X-Ray 10/27/16 0600 Signed Impressions: Service Date/Time: Thursday, October 27, 2016 05:56 - CONCLUSION: Probable ileus pattern. Close clinical and radiographic followup recommended. Oj Shipley MD Chest X-Ray 10/26/16 0000 Signed Impressions: Service Date/Time: October 08:29 - CONCLUSION: Stable endotracheal tube which appears slightly high. Stable airspace consolidation within the right hemithorax. Iesha Murray MD CT Angiography 10/23/16 1712 Signed Impressions: Service Date/Time: Sunday, October 23, 2016 19:27 - CONCLUSION: 1. Negative for pulmonary embolus. 2. Diffuse bilateral airspace disease most characteristic of aspiration or pneumonia. 3. Endotracheal tube in satisfactory position. There is some mucoid debris in the airways. 4. Gallstones. Ileus. Scoliosis. Michael Feldman MD Abdomen/Pelvis CT 10/23/16 1625 Signed Impressions: Service Date/Time: Sunday, October 23, 2016 19:27 - CONCLUSION: 1. Multiple gallstones. Diffuse ileus. Scoliosis with bilateral hip dysplasia. Basilar lung disease. See chest CT. Michael Feldman MD Physical Exam GENERAL: Awake, NAD, on CPAP SKIN: No rashes. Warm and dry HEAD: Atraumatic. No temporal or scalp tenderness. EYES: Pupils equal round and reactive. No scleral icterus. No injection or drainage. ENT: Nose without bleeding, purulent drainage or septal hematoma. ET in mouth NECK: Trachea midline. Supple, nontender, no meningeal signs. Scar in neck from previous trach CARDIOVASCULAR: HS audible. RESPIRATORY: Has scattered rhonchi GASTROINTESTINAL: Abdomen soft, distended, tense, no rebound or rigidity. PEG tube site ok. MUSCULOSKELETAL: Extremities with contractures and deformities. No joint effusion, or edema noted. NEUROLOGICAL: Opens eyes spontaneously. No interaction. Extremities spastic and contracted Psych: could not be assessed. IV line sites with no e/o infection. Assessment & Plan Remarks Severe sepsis present on admission Pneumonia present on admission: Aspiration pneumonia appears to be most likely. Although patient lives in the community and would like to rule out community- acquired pneumonia as well as atypical pneumonia. Coag negative staph bacteremia likely contamination Acute metabolic encephalopathy: At baseline patient has cerebral palsy with developmental delay but reportedly there has been a change from baseline. High-grade leukocytosis: Likely Leukemoid reaction, SIRS from chemical pneumonitis as well as aspiration related bacterial pneumonia. 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 History of Brina fundoplication as well as exploratory laparotomy for small bowel obstruction. Patient is at risk for recurrent aspiration pneumonia due to his history of Brina fundoplication, developmental delay, seizure disorder, scoliosis, distorted GI as well as skeletal anatomy. Recommendations: DC Zosyn IV DC azithromycin Start Unasyn IV Follow cultures Follow clinically Follow CXR Monitor temps Weaning per CCM Seems to be stabilizing D/W Janet Stinson MD Oct 31, 2016 12:34
--- NOTE | 2016-10-31 12:39 | HHI.GIFU ---
Subjective Remarks Resting in bed. Sedated on vent. Nurse reports now having diarrhea. Abdomen not distended. (Tabatha Garza) Objective Vitals I&O Vital Signs Date Time Temp Pulse Resp B/P Pulse Ox O2 Delivery O2 Flow Rate FiO2 10/31/16 12:00 30 10/31/16 12:00 101 10/31/16 12:00 98.1 101 16 105/64 98 10/31/16 11:59 97 30 10/31/16 10:00 93 10/31/16 08:00 99.0 95 16 96/51 97 10/31/16 08:00 95 10/31/16 08:00 30 10/31/16 07:49 98 30 10/31/16 06:00 90 10/31/16 04:30 97 30 10/31/16 04:00 30 10/31/16 04:00 90 10/31/16 04:00 97.3 90 16 101/62 97 10/31/16 02:00 92 10/31/16 01:06 99 30 10/31/16 00:00 92 10/31/16 00:00 30 10/31/16 00:00 96.8 92 17 104/73 100 10/30/16 22:29 98 30 10/30/16 22:00 104 10/30/16 20:00 30 10/30/16 20:00 94 10/30/16 20:00 98.2 94 19 113/74 100 10/30/16 19:50 100 30 10/30/16 18:00 96 10/30/16 16:03 100 30 10/30/16 16:00 98 10/30/16 16:00 97.5 98 19 101/69 99 10/30/16 16:00 30 10/30/16 14:00 86 I/O 10/30/16 10/30/16 10/30/16 10/31/16 10/31/16 10/31/16 07:00 15:00 23:00 07:00 15:00 23:00 Intake Total 1281 ml 1488 ml 1428 ml 1431 ml Output Total 700 ml 525 ml 625 ml 925 ml Balance 581 ml 963 ml 803 ml 506 ml Intake IV Total 1221 ml 1468 ml 1368 ml 1371 ml Tube Feeding 60 ml Tube Irrigant 20 ml 60 ml 60 ml Output Urine Total 250 ml 425 ml 200 ml 650 ml Stool Total 100 ml 50 ml Gastric Drainage Total 450 ml 100 ml 325 ml 225 ml # Bowel Movements 5 Laboratory Laboratory Tests Test 10/30/16 16:20 Sodium Level 148 Potassium Level 3.0 Chloride Level 116 Carbon Dioxide Level 21.4 Anion Gap 11 Blood Urea Nitrogen 2 Creatinine 0.58 Estimat Glomerular Filtration 194 Rate Random Glucose 108 Calcium Level 7.2 Protein Corrected Calcium 7.5 Total Protein 6.5 Date/Time Procedure Status Source Growth 10/27/16 08:45 Aerobic Blood Culture - Preliminary Resulted Blood Peripheral NO GROWTH IN 4 DAYS 10/27/16 08:45 Anaerobic Blood Culture - Preliminary Resulted Blood Peripheral NO GROWTH IN 4 DAYS Imaging Last Impressions Chest X-Ray 10/30/16 0600 Signed Impressions: Service Date/Time: Sunday, October 30, 2016 04:45 - CONCLUSION: 1. No significant change widespread infiltrate right lung. 2. Modestly improved left base consolidation. 3. Nasogastric tube tip is just below the GE junction. Endotracheal tube tip is unchanged. Mg Polanco MD Abdomen X-Ray 10/28/16 0600 Signed Impressions: Service Date/Time: Friday, October 28, 2016 05:08 - CONCLUSION: Left lower lobe pulmonary consolidation. There are gas-filled dilated bowel loops identified though slightly decreased. Oj Shipley MD CT Angiography 10/23/16 1712 Signed Impressions: Service Date/Time: Sunday, October 23, 2016 19:27 - CONCLUSION: 1. Negative for pulmonary embolus. 2. Diffuse bilateral airspace disease most characteristic of aspiration or pneumonia. 3. Endotracheal tube in satisfactory position. There is some mucoid debris in the airways. 4. Gallstones. Ileus. Scoliosis. Michael Feldman MD Abdomen/Pelvis CT 10/23/16 1625 Signed Impressions: Service Date/Time: Sunday, October 23, 2016 19:27 - CONCLUSION: 1. Multiple gallstones. Diffuse ileus. Scoliosis with bilateral hip dysplasia. Basilar lung disease. See chest CT. Michael Feldman MD Physical Exam HEENT: Normocephalic; atraumatic CHEST: Resp. even/unlabored. Diminished. OETT to vent. CARDIAC: RRR. ABDOMEN: Soft, nondistended, no hepatosplenomegaly; bowel sounds are hypoactive. G tube to gravity. NGT to LIWS EXTREMITIES: Contracted CAKE ICER: Sedated on vent. (Tabatha Garza) Assessment and Plan Plan ASSESSMENT: - Ileus, Constipation. Abdomen/Pelvis CT (10/23/16)-----> 1. Multiple gallstones. Diffuse ileus. Scoliosis with bilateral hip dysplasia. Basilar lung disease. See chest CT. Abdomen X-Ray (10/27/16)-----> Probable ileus pattern. Close clinical and radiographic followup recommended. NGT was placed for increased secretions in esophagus. Abdominal distention improved. Multiple pasty bowel movements. Nurse reports that he did not tolerate the TF. IR consulted for conversion of gastrostomy tube to G/J tube. Now with diarrhea. Will d/c lactulose, suppositories. Cont. Miralax but hold for diarrhea. - Sepsis/PNA. WBC 9.4. On vent. Abx per ID, Nebs. - Anemia. 911.1/36.7. - SIM with Hypernatremia, hypokalemia. Improving Per CCM - Hx cerebral palsey, development delay, sz disorder PLAN: - NPO for procedure - Cont. PPI - Cont. Miralax, but hold for diarrhea - D/C Dulcolax - D/C Lactulose - IR consulted for conversion of gastrostomy tube to G/J tube - Pt seen and examined by Dr. Mackay and myself and this note is written on his behalf (Tabatha Garza) Physician Comments Patient seen and examined Agree with above Continue with current supportive care Monitor labs Await conversion of PEG to GJ tube (David Mackay MD) Tabatha Garza Oct 31, 2016 12:39 David Mackay MD Oct 31, 2016 22:20
[2016-10-31] MEDS: PROPOFOL 1000 MG/100 ML INJ 100 ML IV SCH (12:46)
[2016-10-31] MEDS: AMPICILLIN-SULBACTAM INJ 1,500 MG in SODIUM CHLORIDE 0.9% INJ 100 ML IV SCH ×2 (14:33→22:05)
[2016-10-31] MEDS ORDERED: METOCLOPRAMIDE HCL 10 MG/2 ML VIAL ONE (15:21)
--- NOTE | 2016-10-31 15:39 | PD.RAD ---
Post Procedure Progress Note Pre Procedure Diagnosis: (1) Cerebral palsy Post Procedure Diagnosis: (1) CP (cerebral palsy) Procedure Date: Oct 31, 2016 Supervising Radiologist: Young Queen Proceduralist/Assist: Valery Wise RT(R)(CV), RT Filomena(R)() Plan of Activity Patient to Unit: Critical Care Patient Condition: Poor See PACS Report for procedural detail/treatment Feeding Tube G to GJ Placement Young Queen MD Oct 31, 2016 15:39
[2016-10-31] MEDS ORDERED: IOHEXOL 350 MG/ML 50 ML BTL (for RAD DIAG) G-TUBE ONE (15:55)
--- NOTE | 2016-10-31 16:18 | RADRPT ---
EXAM DATE/TIME: 10/31/2016 15:06 [facility] COMPARISON: No previous studies available for comparison. INDICATIONS : Patient with history of cerebral palsy in need of gastrostomy tube exchange for gastrojejunal tube. MEDICAL HISTORY : 1.Cerebral palsy 2.Mental retardation 3.Seizure disorder 4.Scoliosis SURGICAL HISTORY : 1.Gtube placement 2.Exploratory laparotomy for small bowel obstruction. ENCOUNTER: Initial ACUITY: > 1 year PAIN SCORE: Nonresponsive. FLUORO TIME: 4.8 minutes CONTRAST: 40 cc Omnipaque (iohexol) 350 DEVICE(S): 1.) 22 Fr Transgastric tube PROCEDURE: 1. Fluoroscopically guided gastrostomy to gastrojejunostomy conversion 2. Conscious sedation with continuous EKG and oximetry monitoring. TECHNIQUE: Under sterile conditions and using aseptic technique a guidewire was passed through the previous millie rostomy tube and the wire was manipulated into the small bowel. The prescribed gastrojejunostomy tube was placed over the guidewire. The balloon was inflated with appropriate volume of saline. Injection of positive contrast demonstrates good position of the gastric and jejunal sections of the tube. Conscious sedation was performed with the prescribed dosages and duration as above. EKG and oximetry remained stable throughout the procedure. CONCLUSION: 1. Uncomplicated conversion from gastrostomy to gastrojejunostomy Young Queen MD on October 31, 2016 at 16:16 Board Certified Radiologist. This report was verified electronically.
--- NOTE | 2016-10-31 16:54 | HHI.CCPN ---
Subjective Remarks/Hospital Course 10/23: Pneumonia, Respiratory Failure, Severe Sepsis - The patient is a 36-year- old male with a past medical history of cerebral palsy, seizure disorder, mental retardation, previous hospitalization for aspiration pneumonia who presented to [facility] ED after family found him more disoriented than usual and had been vomiting. In the ED the patient was found febrile with temperature of 102.1 rectally, tachycardiac with heart rate in the 130s to 150s and tachypneic. In addition the patient was hypoxemic on non-rebreather and he was subsequently intubated with etomidate, vecuronium and placed on full mechanical ventilation. 10/24: Severe sepsis persists despite broad abx coverage. Urine output improving after aggressive resuscitation. 10/25: GNR in sputum. Continue broad abx coverage pending speciation. Gas exchange improved. 10/26: He remains obstructed with a colon ileus and constipation. Right lung infiltrate persists. Bandemia persists. 10/27: Colon is frighteningly large. Hypokalemia complicating ileus. 10/28: Colon much less distended. Hypokalemia persists despite aggressive replacement. Respiratory failure from pneumonia persists. 10/29: Remains orally intubated on mech ventilation. 10/30: Awake, orally intubated on mechanical ventilation. Hypothermic today. Started on Tayrn hugger. Did not tolerate tube feeds overnight. OG tube To suction currently. 10/31: Sedated, easily arousable, orally intubated on mechanical ventilation. GJ tube by IR today Objective Vital Signs Date Time Temp Pulse Resp B/P Pulse Ox O2 Delivery O2 Flow Rate FiO2 10/31/16 16:42 100 30 10/31/16 14:00 87 10/31/16 12:00 98.1 16 105/64 Intake and Output 10/30/16 10/30/16 10/31/16 08:00 16:00 00:00 Intake Total 1281 ml 1488 ml 1428 ml Output Total 700 ml 525 ml 625 ml Balance 581 ml 963 ml 803 ml Result Diagram: 10/30/16 0403 10/30/16 1620 Imaging Last Impressions Abdomen X-Ray 10/28/16 0600 Signed Impressions: Service Date/Time: Friday, October 28, 2016 05:08 - CONCLUSION: Left lower lobe pulmonary consolidation. There are gas-filled dilated bowel loops identified though slightly decreased. Oj Shipley MD Chest X-Ray 10/26/16 0000 Signed Impressions: Service Date/Time: October 08:29 - CONCLUSION: Stable endotracheal tube which appears slightly high. Stable airspace consolidation within the right hemithorax. Iesha Murray MD CT Angiography 10/23/16 1712 Signed Impressions: Service Date/Time: Sunday, October 23, 2016 19:27 - CONCLUSION: 1. Negative for pulmonary embolus. 2. Diffuse bilateral airspace disease most characteristic of aspiration or pneumonia. 3. Endotracheal tube in satisfactory position. There is some mucoid debris in the airways. 4. Gallstones. Ileus. Scoliosis. Michael Feldman MD Abdomen/Pelvis CT 10/23/16 1625 Signed Impressions: Service Date/Time: Sunday, October 23, 2016 19:27 - CONCLUSION: 1. Multiple gallstones. Diffuse ileus. Scoliosis with bilateral hip dysplasia. Basilar lung disease. See chest CT. Michael Feldman MD Objective Remarks PHYSICAL EXAMINATION GENERAL: Critically ill 36-year-old male. HEENT: Atraumatic, normocephalic. Orally intubated. NECK: Supple. CARDIOVASCULAR EXAM: Tachycardic. Normal S1 and S2. No murmurs. No JVD. PULMONARY EXAM: Bilateral equal air entry. Diffuse rhonchi persist right. Left clear. Acceptable excursions on ventilator. ABDOMEN: Tenderness on palpation. firm, distended. G-tube in place. BS improved. EXTREMITIES: Warm, well perfused. NEUROLOGIC: Largely obtunded, chronically contractured joints. Cerebral palsy. Opens eyes to voice. A/P Assessment and Plan IMPRESSION: 1. Acute hypoxemic respiratory failure requiring intubation. 2. Lactic acidemia. 3. Acute kidney injury. 4. Aspiration pneumonia -> GNR. 5. Intractable nausea and vomiting. 9. Previous PEG tube placement. 10. History of cerebral palsy. 11. History of developmental delay. 12. History of seizure disorder. 13. History of recurrent aspiration pneumonia. 14. Colon ileus. 15. Hypokalemia. Plan: 1. Diprivan infusion if needed for sedation; daily sedation vacation. 2. Monitor neuro status closely. 3. Continue with vent support and maintain sats above 92%. PRVC mode. 4. Bronchodilators in the form of DuoNeb q. 6. 5. Vent bundle. Soft restraints. 6. CT pulmonary angiogram -> no PE. 10. Serial lactic acid. 15. Did not tolerate PEG-tube feeds on 10/29. Protonix 40 mg IV daily for GI prophylaxis. GJ tube placed by IR 10/31 17. Zosyn/Zithromax discontinued on 10/31 and patient switched to IV Unasyn by ID 18. Monitor CBC. 19. Place on sliding scale insulin with Accu-Chek q. 6 hours for glycemic control. 20. SCDs and heparin sq. 21. Review cultures. 22. Daily SBT. 23. Check Dilantin level 24. On laxatives. Fleets enema stopped 10/30 23. Replace K, no narcotics. 24. Reglan Overall impression: He remains critically ill with hypoxemic respiratory failure , unable to wean from ventilator; continues to fail SBT. Right whole lung pneumonia is potentially fatal in this debilitated man. He remains distended from colon ileus and septic from Klebsiella pneumonia. Nutritional status is hampering response to infection. Critical care 30 mins Kirk Yates MD Oct 31, 2016 16:54
[2016-11-01] VITALS (17 sets, daily range): BP systolic 91–107; BP diastolic 61–71; PULSE 74–100; RESP 16–28; TEMP 97.3–98.6; O2SAT 96–100
[2016-11-01] MEDS: AMPICILLIN-SULBACTAM INJ 1,500 MG in SODIUM CHLORIDE 0.9% INJ 100 ML IV SCH ×4 (03:00→22:25)
[2016-11-01] MEDS: DEXT 5%-NACL 0.45% 1000 ML INJ 1,000 ML IV SCH ×3 (03:15→19:15)
[2016-11-01] MEDS: CHLORHEXIDINE GLUCONATE 2 % 1 PACK (2 CLOTHS) TOP SCH (04:00)
[2016-11-01] MEDS: OXYBUTYNIN CHLORIDE 5 MG TAB PO SCH ×3 (06:00→22:25)
[2016-11-01 06:07] LABS: AUTOMATED NEUTROPHIL # 5.2 TH/MM3 (1.8-7.7); BASOPHIL % 0.4 % (0.0-2.0); EOSINOPHIL # 0.3 TH/MM3 (0-0.4); EOSINOPHIL % 3.8 % (0.0-4.0); LYMPH % 33.9 % (9.0-44.0); LYMPHOCYTE # 3.2 TH/MM3 (1.0-4.8); MEAN CELL VOLUME 67.5 FL (80.0-100.0); MEAN CORPUSCULAR HEMOGLOBIN 20.6 PG (27.0-34.0); MEAN CORPUSCULAR HGB CONC 30.5 % (32.0-36.0); MONO % 5.8 % (0.0-8.0); NEUT % 56.1 % (16.0-70.0); PLATELET COUNT 800 TH/MM3 (150-450); RED BLOOD COUNT 4.44 MIL/MM3 (4.50-5.90); RED CELL DISTRIBUTION WIDTH 27.3 % (11.6-17.2); WHITE BLOOD COUNT 9.3 TH/MM3 (4.0-11.0)
[2016-11-01 06:16] LABS: HEMO FLAGS AUTO DIFF
[2016-11-01 06:55] LABS: ALKALINE PHOSPHATASE 59 U/L (45-117); ALT (GPT) 10 U/L (12-78); ANION GAP 10 MEQ/L (5-15); AST (GOT) 12 U/L (15-37); BICARBONATE 19.8 MEQ/L (21.0-32.0); BLOOD UREA NITROGEN LESS THAN 1 MG/DL (7-18); CALCIUM-PROTEIN CORRECTED 7.7 MG/DL (8.5-10.1); CHLORIDE 119 MEQ/L (98-107); GLOMERULAR FILTRATION RATE 187 ML/MIN (>89); SODIUM (NA) 149 MEQ/L (136-145); TOTAL BILIRUBIN ADULT 0.1 MG/DL (0.2-1.0)
[2016-11-01 06:59] LABS: POTASSIUM 2.3 MEQ/L (3.5-5.1)
[2016-11-01 08:04] LABS: ACANTHOCYTES OCC (NORMAL); PLATELET ESTIMATE SMEAR HIGH (NORMAL); PLATELET MORPHOLOGY NORMAL (NORMAL); SCAN/DIFF AUTO DIFF CONFIRMED
[2016-11-01 08:05] LABS: KERATOCYTES OCC (NORMAL); TARGET CELLS 2+ (NORMAL)
[2016-11-01] MEDS: POLYETHYLENE GLYCOL 17 GM PKG PO SCH (09:00)
[2016-11-01] MEDS: SENNOSIDES SYRUP 8.8 MG/5 ML CUP PO SCH (09:00)
[2016-11-01] MEDS: FLUDROCORTISONE ACETATE 0.1 MG TAB PO SCH (09:58)
[2016-11-01] MEDS: PHENYTOIN SUSP 100 MG/4 ML CUP PEG SCH ×2 (09:58→22:25)
[2016-11-01] MEDS: PANTOPRAZOLE SODIUM 40 MG VIAL IV SCH (09:58)
[2016-11-01] MEDS: POTASSIUM CL 40 MEQ/30 ML LIQ UDC PO/TUBE PRN (09:58)
[2016-11-01] MEDS: TOPIRAMATE 100 MG TAB GT SCH ×2 (09:59→22:25)
[2016-11-01] MEDS: POTASSIUM CHLOR 20 MEQ PREMIX 100 ML IV PRN (09:59)
--- NOTE | 2016-11-01 11:12 | HHI.CCPN ---
Subjective Remarks/Hospital Course 10/23: Pneumonia, Respiratory Failure, Severe Sepsis - The patient is a 36-year- old male with a past medical history of cerebral palsy, seizure disorder, mental retardation, previous hospitalization for aspiration pneumonia who presented to [facility] ED after family found him more disoriented than usual and had been vomiting. In the ED the patient was found febrile with temperature of 102.1 rectally, tachycardiac with heart rate in the 130s to 150s and tachypneic. In addition the patient was hypoxemic on non-rebreather and he was subsequently intubated with etomidate, vecuronium and placed on full mechanical ventilation. 10/24: Severe sepsis persists despite broad abx coverage. Urine output improving after aggressive resuscitation. 10/25: GNR in sputum. Continue broad abx coverage pending speciation. Gas exchange improved. 10/26: He remains obstructed with a colon ileus and constipation. Right lung infiltrate persists. Bandemia persists. 10/27: Colon is frighteningly large. Hypokalemia complicating ileus. 10/28: Colon much less distended. Hypokalemia persists despite aggressive replacement. Respiratory failure from pneumonia persists. 10/29: Remains orally intubated on mech ventilation. 10/30: Awake, orally intubated on mechanical ventilation. Hypothermic today. Started on Taryn hugger. Did not tolerate tube feeds overnight. OG tube To suction currently. 10/31: Sedated, easily arousable, orally intubated on mechanical ventilation. GJ tube by IR today 11/01: arousable, still sedated. failing SBT. Objective Vital Signs Date Time Temp Pulse Resp B/P Pulse Ox O2 Delivery O2 Flow Rate FiO2 11/01/16 10:00 78 11/01/16 08:45 100 30 11/01/16 08:00 97.3 16 97/65 Intake and Output 10/31/16 10/31/16 11/01/16 08:00 16:00 00:00 Intake Total 1431 ml 1220 ml 745 ml Output Total 925 ml 1200 ml 550 ml Balance 506 ml 20 ml 195 ml Result Diagram: 11/01/16 0533 11/01/16 0533 Imaging Last Impressions Abdomen X-Ray 10/28/16 0600 Signed Impressions: Service Date/Time: Friday, October 28, 2016 05:08 - CONCLUSION: Left lower lobe pulmonary consolidation. There are gas-filled dilated bowel loops identified though slightly decreased. Oj Shipley MD Chest X-Ray 10/26/16 0000 Signed Impressions: Service Date/Time: October 08:29 - CONCLUSION: Stable endotracheal tube which appears slightly high. Stable airspace consolidation within the right hemithorax. Iesha Murray MD CT Angiography 10/23/16 1712 Signed Impressions: Service Date/Time: Sunday, October 23, 2016 19:27 - CONCLUSION: 1. Negative for pulmonary embolus. 2. Diffuse bilateral airspace disease most characteristic of aspiration or pneumonia. 3. Endotracheal tube in satisfactory position. There is some mucoid debris in the airways. 4. Gallstones. Ileus. Scoliosis. Michael Feldman MD Abdomen/Pelvis CT 10/23/16 1625 Signed Impressions: Service Date/Time: Sunday, October 23, 2016 19:27 - CONCLUSION: 1. Multiple gallstones. Diffuse ileus. Scoliosis with bilateral hip dysplasia. Basilar lung disease. See chest CT. Michael Feldman MD Objective Remarks PHYSICAL EXAMINATION GENERAL: Critically ill 36-year-old male. HEENT: Atraumatic, normocephalic. Orally intubated. NECK: Supple. CARDIOVASCULAR EXAM: Tachycardic. Normal S1 and S2. No murmurs. No JVD. PULMONARY EXAM: Bilateral equal air entry. Diffuse rhonchi persist right. Left clear. Acceptable excursions on ventilator. ABDOMEN: Tenderness on palpation. firm, distended. G-tube in place. BS improved. EXTREMITIES: Warm, well perfused. NEUROLOGIC: Largely obtunded, chronically contractured joints. Cerebral palsy. Opens eyes to voice. A/P Assessment and Plan IMPRESSION: 1. Acute hypoxemic respiratory failure requiring intubation. 2. Lactic acidemia- resolving. 3. Acute kidney injury- resolving 4. Aspiration pneumonia -> Klebsiella 5. Intractable nausea and vomiting. 9. Previous PEG tube placement. 10. History of cerebral palsy. 11. History of developmental delay. 12. History of seizure disorder. 13. History of recurrent aspiration pneumonia. 14. Colon ileus. 15. Hypokalemia. 16. Hypernatremia Plan: 1. Diprivan infusion if needed for sedation; daily sedation vacation. 2. Monitor neuro status closely. 3. Continue with vent support and maintain sats above 92%. PRVC mode. failing SBT for tachypnea and RSBI > 105. continue daily SBTs. may require tracheostomy. 4. Bronchodilators in the form of DuoNeb q. 6. 5. Vent bundle. Soft restraints. 6. CT pulmonary angiogram -> no PE. 7. Restart TF jevity @ goal of 30. change iv protonix to per tube pepcid for GI prophylaxis. 8. start free water 250cc q4h per tube for hypernatremia. continue 1/2NS @ 125cc /hr. 9. Zosyn/Zithromax discontinued on 10/31 and patient switched to IV Unasyn by ID 10. Monitor CBC. 11. SCDs and heparin sq. 12. On laxatives. Fleets enema stopped 10/30 13. Replace K, no narcotics. 14. Reglan Overall impression: He remains critically ill with hypoxemic respiratory failure , unable to wean from ventilator; continues to fail SBT. Right whole lung pneumonia is potentially fatal in this debilitated man. He remains distended from colon ileus and septic from Klebsiella pneumonia. Nutritional status is hampering response to infection. Critical care 37 mins Bhaskar Miranda MD Nov 01, 2016 11:12
[2016-11-01] MEDS: FREE WATER G-TUBE SCH ×3 (11:36→20:00)
--- NOTE | 2016-11-01 16:01 | HHI.GIFU ---
Subjective Remarks Pt mildly tachypneic, but has been on CPAP all day and is getting ready to go back to vent settings. Tolerating TF so far, started at noon. Diarrhea seems to be slowing down. (Tabatha Garza) Objective Vitals I&O Vital Signs Date Time Temp Pulse Resp B/P Pulse Ox O2 Delivery O2 Flow Rate FiO2 11/01/16 14:00 94 11/01/16 12:00 82 11/01/16 12:00 30 11/01/16 12:00 98.4 82 28 100/63 100 11/01/16 11:25 100 30 11/01/16 10:00 78 11/01/16 08:45 100 30 11/01/16 08:45 30 11/01/16 08:00 97.3 74 16 97/65 100 11/01/16 08:00 74 11/01/16 08:00 30 11/01/16 06:00 80 11/01/16 04:00 30 11/01/16 04:00 97.8 86 16 102/68 100 11/01/16 04:00 86 11/01/16 03:51 99 30 11/01/16 02:00 92 11/01/16 00:00 30 11/01/16 00:00 94 11/01/16 00:00 97.9 94 16 107/71 100 10/31/16 22:25 100 30 10/31/16 22:00 89 10/31/16 20:00 30 10/31/16 20:00 97.5 91 16 112/68 100 10/31/16 20:00 91 10/31/16 19:32 100 30 10/31/16 18:00 85 10/31/16 16:42 100 30 10/31/16 16:00 100 10/31/16 16:00 98.2 88 21 112/74 100 10/31/16 16:00 88 I/O 10/31/16 10/31/16 10/31/16 11/01/16 11/01/16 11/01/16 07:00 15:00 23:00 07:00 15:00 23:00 Intake Total 1431 ml 1220 ml 745 ml 879 ml 1203 ml Output Total 925 ml 1200 ml 550 ml 700 ml 1300 ml Balance 506 ml 20 ml 195 ml 179 ml -97 ml Intake Oral 0 ml IV Total 1371 ml 1125 ml 745 ml 879 ml 907 ml Tube Feeding 21 ml Tube Irrigant 60 ml 25 ml Other 95 ml 250 ml Output Urine Total 650 ml 1000 ml 500 ml 650 ml 1300 ml Stool Total 50 ml 50 ml Gastric Drainage Total 225 ml 150 ml 50 ml 50 ml # Bowel Movements 2 2 1 Laboratory Laboratory Tests Test 11/01/16 05:33 White Blood Count 9.3 Red Blood Count 4.44 Hemoglobin 9.1 Hematocrit 30.0 Mean Corpuscular Volume 67.5 Mean Corpuscular Hemoglobin 20.6 Mean Corpuscular Hemoglobin 30.5 Concent Red Cell Distribution Width 27.3 Platelet Count 800 Mean Platelet Volume 8.4 Neutrophils (%) (Auto) 56.1 Lymphocytes (%) (Auto) 33.9 Monocytes (%) (Auto) 5.8 Eosinophils (%) (Auto) 3.8 Basophils (%) (Auto) 0.4 Neutrophils # (Auto) 5.2 Lymphocytes # (Auto) 3.2 Monocytes # (Auto) 0.5 Eosinophils # (Auto) 0.3 Basophils # (Auto) 0.0 CBC Comment AUTO DIFF Differential Comment AUTO DIFF CONFIRMED Platelet Estimate HIGH Platelet Morphology Comment NORMAL Target Cells 2+ Acanthocytes OCC Keratocytes OCC Sodium Level 149 Potassium Level 2.3 Chloride Level 119 Carbon Dioxide Level 19.8 Anion Gap 10 Blood Urea Nitrogen LESS THAN 1 Creatinine 0.60 Estimat Glomerular Filtration 187 Rate Random Glucose 82 Calcium Level 7.1 Protein Corrected Calcium 7.7 Total Bilirubin 0.1 Aspartate Amino Transf 12 (AST/SGOT) Alanine Aminotransferase 10 (ALT/SGPT) Alkaline Phosphatase 59 Total Protein 5.9 Albumin 1.4 Imaging Last Impressions Gastrostomy Tube Change 10/31/16 0000 Signed Impressions: Service Date/Time: Monday, October 31, 2016 15:06 - CONCLUSION: 1. Uncomplicated conversion from gastrostomy to gastrojejunostomy Young Queen MD Chest X-Ray 10/30/16 06 Signed Impressions: Service Date/Time: Sunday, October 30, 2016 04:45 - CONCLUSION: 1. No significant change widespread infiltrate right lung. 2. Modestly improved left base consolidation. 3. Nasogastric tube tip is just below the GE junction. Endotracheal tube tip is unchanged. Mg Polanco MD Abdomen X-Ray 10/28/16 0600 Signed Impressions: Service Date/Time: Friday, October 28, 2016 05:08 - CONCLUSION: Left lower lobe pulmonary consolidation. There are gas-filled dilated bowel loops identified though slightly decreased. Oj Shipley MD CT Angiography 10/23/16 1712 Signed Impressions: Service Date/Time: Sunday, October 23, 2016 19:27 - CONCLUSION: 1. Negative for pulmonary embolus. 2. Diffuse bilateral airspace disease most characteristic of aspiration or pneumonia. 3. Endotracheal tube in satisfactory position. There is some mucoid debris in the airways. 4. Gallstones. Ileus. Scoliosis. Michael Feldman MD Abdomen/Pelvis CT 10/23/16 1625 Signed Impressions: Service Date/Time: Sunday, October 23, 2016 19:27 - CONCLUSION: 1. Multiple gallstones. Diffuse ileus. Scoliosis with bilateral hip dysplasia. Basilar lung disease. See chest CT. Michael Feldman MD Physical Exam HEENT: Normocephalic; atraumatic CHEST: Resp. even/unlabored. Diminished. OETT to vent. CARDIAC: RRR. ABDOMEN: Soft, nondistended, no hepatosplenomegaly; bowel sounds are hypoactive. G/J tube to gravity EXTREMITIES: Contracted MAKE UP GIRL: Sedated on vent. (Tabatha Garza) Assessment and Plan Plan ASSESSMENT: - Ileus, Constipation. Abdomen/Pelvis CT (10/23/16)-----> 1. Multiple gallstones. Diffuse ileus. Scoliosis with bilateral hip dysplasia. Basilar lung disease. See chest CT. Abdomen X-Ray (10/27/16)-----> Probable ileus pattern. Close clinical and radiographic followup recommended. NGT was placed for increased secretions in esophagus. Abdominal distention improved. S/P conversion of gastrostomy tube to G/J tube by IR. Diarrhea improving since lactulose was discontinued. Miralax, holding for diarrhea. Mildly distended , much improved. - Sepsis/PNA. WBC 9.4. On vent. Abx per ID, Nebs. - Anemia. 9.1/30.0 - SIM with Hypernatremia, hypokalemia. Improving Per CCM - Hx cerebral palsey, development delay, sz disorder PLAN: - TF via J tube - Cont. PPI - Cont. Miralax, but hold for diarrhea - Supportive care - Pt seen and examined by Dr. Mackay and myself and this note is written on his behalf (Tabatha Garza) Physician Comments Patient seen and examined Agree with above Continue current supportive care Monitor labs We will sign off (David Mackay MD) Tabatha Garza Nov 01, 2016 16:01 David Mackay MD Nov 01, 2016 20:38
[2016-11-01] MEDS: FAMOTIDINE SUSP 40 MG/5 ML NG SCH (21:00)
[2016-11-01] MEDS: PROPOFOL 1000 MG/100 ML INJ 100 ML IV SCH (22:26)
[2016-11-02] VITALS (19 sets, daily range): BP systolic 89–107; BP diastolic 50–73; PULSE 80–120; RESP 14–22; TEMP 97.5–99.7; O2SAT 96–100
[2016-11-02] MEDS: AMPICILLIN-SULBACTAM INJ 1,500 MG in SODIUM CHLORIDE 0.9% INJ 100 ML IV SCH ×4 (03:00→21:08)
[2016-11-02] MEDS: DEXT 5%-NACL 0.45% 1000 ML INJ 1,000 ML IV SCH ×3 (03:15→21:11)
[2016-11-02] MEDS: CHLORHEXIDINE GLUCONATE 2 % 1 PACK (2 CLOTHS) TOP SCH (04:00)
[2016-11-02] MEDS: FREE WATER G-TUBE SCH ×6 (04:00→20:00)
[2016-11-02 04:44] LABS: MEAN CELL VOLUME 67.9 FL (80.0-100.0); MEAN CORPUSCULAR HEMOGLOBIN 20.7 PG (27.0-34.0); MEAN CORPUSCULAR HGB CONC 30.6 % (32.0-36.0); PLATELET COUNT 888 TH/MM3 (150-450); RED BLOOD COUNT 4.42 MIL/MM3 (4.50-5.90); RED CELL DISTRIBUTION WIDTH 27.7 % (11.6-17.2); WHITE BLOOD COUNT 11.5 TH/MM3 (4.0-11.0)
[2016-11-02 05:11] LABS: REVIEW FLAG FINAL
[2016-11-02 05:13] LABS: ANION GAP 8 MEQ/L (5-15); BICARBONATE 22.5 MEQ/L (21.0-32.0); BLOOD UREA NITROGEN LESS THAN 1 MG/DL (7-18); CHLORIDE 118 MEQ/L (98-107); GLOMERULAR FILTRATION RATE 207 ML/MIN (>89); SODIUM (NA) 148 MEQ/L (136-145)
[2016-11-02 05:18] LABS: POTASSIUM 2.8 MEQ/L (3.5-5.1)
[2016-11-02 05:49] LABS: CALCIUM-PROTEIN CORRECTED 7.6 MG/DL (8.5-10.1)
[2016-11-02] MEDS: OXYBUTYNIN CHLORIDE 5 MG TAB PO SCH ×3 (06:00→21:08)
--- NOTE | 2016-11-02 06:17 | RADRPT ---
EXAM DATE/TIME: 11/02/2016 05:34 [place] COMPARISON: CHEST SINGLE AP, October 30, 2016, 4:45. INDICATIONS : Shortness of breath. MEDICAL HISTORY : Cardiovascular disease. Cerebral palsy SURGICAL HISTORY : None. ENCOUNTER: Subsequent ACUITY: 1 week PAIN SCORE: Non-responsive. LOCATION: Bilateral chest FINDINGS: Right perihilar infiltrate slightly improved in the interim. There appears to be some left retrocardi ac consolidation developing. No large effusion seen. No pneumothorax. Endotracheal tube tip is about 3 cm above the rosi. Nasogastric tube has been removed. Severe scoliosis again seen. CONCLUSION: 1. Mildly improved airspace opacities on the right. 2. Mild atelectasis developing left base. 3. Endotracheal tube tip about 3 cm above the rosi. 4. Nasogastric tube out. Mg Polanco MD on November 02, 2016 at 6:15 Board Certified Radiologist. This report was verified electronically.
[2016-11-02] MEDS: POTASSIUM CL 40 MEQ/30 ML LIQ UDC PO/TUBE PRN (06:52)
[2016-11-02] MEDS: POTASSIUM CHLOR 40 MEQ PREMIX 100 ML IV PRN (06:52)
[2016-11-02] MEDS: TOPIRAMATE 100 MG TAB GT SCH ×2 (08:38→21:08)
[2016-11-02] MEDS: FLUDROCORTISONE ACETATE 0.1 MG TAB PO SCH (08:38)
[2016-11-02] MEDS: PHENYTOIN SUSP 100 MG/4 ML CUP PEG SCH ×2 (08:38→21:08)
[2016-11-02] MEDS: SENNOSIDES SYRUP 8.8 MG/5 ML CUP PO SCH (08:38)
[2016-11-02] MEDS: POLYETHYLENE GLYCOL 17 GM PKG PO SCH (08:38)
[2016-11-02] MEDS: HEPARIN SODIUM - SQ 10,000 UNITS/ML VIAL SQ SCH ×2 (08:38→16:20)
[2016-11-02] MEDS: FAMOTIDINE SUSP 40 MG/5 ML NG SCH (08:39)
[2016-11-02] MEDS ORDERED: PANTOPRAZOLE SOD 40 MG DELAYED RELEASE TAB PO SCH (09:00)
[2016-11-02] MEDS ORDERED: HYOSCYAMINE SOLN 0.125 MG/ML 15 ML BTL PO ONE (12:45)
--- NOTE | 2016-11-02 12:57 | HHI.CCPN ---
Subjective Remarks/Hospital Course 10/23: Pneumonia, Respiratory Failure, Severe Sepsis - The patient is a 36-year- old male with a past medical history of cerebral palsy, seizure disorder, mental retardation, previous hospitalization for aspiration pneumonia who presented to [facility] ED after family found him more disoriented than usual and had been vomiting. In the ED the patient was found febrile with temperature of 102.1 rectally, tachycardiac with heart rate in the 130s to 150s and tachypneic. In addition the patient was hypoxemic on non-rebreather and he was subsequently intubated with etomidate, vecuronium and placed on full mechanical ventilation. 10/24: Severe sepsis persists despite broad abx coverage. Urine output improving after aggressive resuscitation. 10/25: GNR in sputum. Continue broad abx coverage pending speciation. Gas exchange improved. 10/26: He remains obstructed with a colon ileus and constipation. Right lung infiltrate persists. Bandemia persists. 10/27: Colon is frighteningly large. Hypokalemia complicating ileus. 10/28: Colon much less distended. Hypokalemia persists despite aggressive replacement. Respiratory failure from pneumonia persists. 10/29: Remains orally intubated on mech ventilation. 10/30: Awake, orally intubated on mechanical ventilation. Hypothermic today. Started on Taryn hugger. Did not tolerate tube feeds overnight. OG tube To suction currently. 10/31: Sedated, easily arousable, orally intubated on mechanical ventilation. GJ tube by IR today 11/01: arousable, still sedated. failing SBT. 11/02: arousable. passed SBT today. still has significant secretions. Objective Vital Signs Date Time Temp Pulse Resp B/P Pulse Ox O2 Delivery O2 Flow Rate FiO2 11/02/16 11:47 100 30 11/02/16 10:00 82 11/02/16 08:00 97.5 16 107/73 Intake and Output 11/01/16 11/01/16 11/02/16 08:00 16:00 00:00 Intake Total 879 ml 1203 ml 937 ml Output Total 700 ml 1300 ml 300 ml Balance 179 ml -97 ml 637 ml Result Diagram: 11/02/16 0350 11/02/16 0350 Imaging Last Impressions Abdomen X-Ray 10/28/16 0600 Signed Impressions: Service Date/Time: Friday, October 28, 2016 05:08 - CONCLUSION: Left lower lobe pulmonary consolidation. There are gas-filled dilated bowel loops identified though slightly decreased. Oj Shipley MD Chest X-Ray 10/26/16 0000 Signed Impressions: Service Date/Time: October 08:29 - CONCLUSION: Stable endotracheal tube which appears slightly high. Stable airspace consolidation within the right hemithorax. Iesha Murray MD CT Angiography 10/23/16 1712 Signed Impressions: Service Date/Time: Sunday, October 23, 2016 19:27 - CONCLUSION: 1. Negative for pulmonary embolus. 2. Diffuse bilateral airspace disease most characteristic of aspiration or pneumonia. 3. Endotracheal tube in satisfactory position. There is some mucoid debris in the airways. 4. Gallstones. Ileus. Scoliosis. Michael Feldman MD Abdomen/Pelvis CT 10/23/16 1625 Signed Impressions: Service Date/Time: Sunday, October 23, 2016 19:27 - CONCLUSION: 1. Multiple gallstones. Diffuse ileus. Scoliosis with bilateral hip dysplasia. Basilar lung disease. See chest CT. Michael Feldman MD Objective Remarks PHYSICAL EXAMINATION GENERAL: Critically ill 36-year-old male. HEENT: Atraumatic, normocephalic. Orally intubated. NECK: Supple. CARDIOVASCULAR EXAM: Tachycardic. Normal S1 and S2. No murmurs. No JVD. PULMONARY EXAM: Bilateral equal air entry. Diffuse rhonchi persist right. Left clear. Acceptable excursions on ventilator. ABDOMEN: Tenderness on palpation. firm, distended. G-tube in place. BS improved. EXTREMITIES: Warm, well perfused. NEUROLOGIC: awake and looking around. does not follow commands, chronically contractured joints. Cerebral palsy. Opens eyes spontaneously A/P Assessment and Plan IMPRESSION: 1. Acute hypoxemic respiratory failure requiring intubation. 2. Lactic acidemia- resolving. 3. Acute kidney injury- resolving 4. Aspiration pneumonia -> Klebsiella 5. Intractable nausea and vomiting. 9. Previous PEG tube placement. 10. History of cerebral palsy. 11. History of developmental delay. 12. History of seizure disorder. 13. History of recurrent aspiration pneumonia. 14. Colon ileus. 15. Hypokalemia. 16. Hypernatremia Plan: 1. Diprivan infusion if needed for sedation; daily sedation vacation. 2. Monitor neuro status closely. 3. Continue with vent support and maintain sats above 92%. secretions may be a barrier to extubation. he is near extubation, but his RSBI is still near 110. 4. Bronchodilators in the form of DuoNeb q. 6. 5. Vent bundle. Soft restraints. 6. CT pulmonary angiogram -> no PE. 7. TF jevity @ goal of 30. per tube pepcid for GI prophylaxis. 8. free water 250cc q4h per tube for hypernatremia. d/c mivf. spironolactone 25mg po x 1 for intravascular volume overload. 9. Zosyn/Zithromax discontinued on 10/31 and patient switched to IV Unasyn by ID 10. Monitor CBC. 11. SCDs and heparin sq. 12. On laxatives. Fleets enema stopped 10/30 13. Replace K, no narcotics. 14. Reglan Overall impression: He remains critically ill with hypoxemic respiratory failure , unable to wean from ventilator; continues to fail SBT. Right whole lung pneumonia is potentially fatal in this debilitated man. He remains distended from colon ileus and septic from Klebsiella pneumonia. Nutritional status is hampering response to infection. Critical care 42 mins, exclusive of procedures. Bhaskar Miranda MD Nov 02, 2016 12:57 Bhaskar Miranda MD Nov 02, 2016 12:57
[2016-11-02] MEDS ORDERED: SPIRONOLACTONE 25 MG TAB PO ONE (13:00)
[2016-11-02] MEDS: PROPOFOL 1000 MG/100 ML INJ 100 ML IV SCH (16:20)
[2016-11-02] MEDS: ACETAMINOPHEN 650 MG/20.3 ML UDC PEG PRN (18:46)
[2016-11-02 21:01] LABS: MEAN CORPUSCULAR HGB CONC 28.1 % (32.0-36.0)
[2016-11-02] MEDS: FAMOTIDINE 20 MG TAB NG SCH (21:11)
[2016-11-03] VITALS (20 sets, daily range): BP systolic 86–97; BP diastolic 51–59; PULSE 102–120; RESP 15–24; TEMP 97.9–99; O2SAT 99–100
[2016-11-03] MEDS: HEPARIN SODIUM - SQ 10,000 UNITS/ML VIAL SQ SCH ×3 (00:33→16:20)
[2016-11-03] MEDS: AMPICILLIN-SULBACTAM INJ 1,500 MG in SODIUM CHLORIDE 0.9% INJ 100 ML IV SCH ×2 (03:04→09:22)
[2016-11-03] MEDS: CHLORHEXIDINE GLUCONATE 2 % 1 PACK (2 CLOTHS) TOP SCH (03:20)
[2016-11-03] MEDS ORDERED: TERBUTALINE INJ 1 MG/ML AMP SQ PRN (03:45)
[2016-11-03] MEDS: FREE WATER G-TUBE SCH ×5 (04:00→15:41)
[2016-11-03] MEDS: NOREPINEPHRINE-DEXTROSE DRIP 250 ML IV SCH ×2 (04:45→08:49)
[2016-11-03] MEDS: OXYBUTYNIN CHLORIDE 5 MG TAB PO SCH ×3 (04:45→21:02)
[2016-11-03 04:47] LABS: ANION GAP 12 MEQ/L (5-15); BICARBONATE 18.9 MEQ/L (21.0-32.0); BLOOD UREA NITROGEN LESS THAN 1 MG/DL (7-18); CHLORIDE 112 MEQ/L (98-107); GLOMERULAR FILTRATION RATE 162 ML/MIN (>89); POTASSIUM 4.2 MEQ/L (3.5-5.1); SODIUM (NA) 143 MEQ/L (136-145)
[2016-11-03 05:06] LABS: CALCIUM-PROTEIN CORRECTED 7.5 MG/DL (8.5-10.1)
[2016-11-03 05:27] LABS: MEAN CELL VOLUME 70.1 FL (80.0-100.0); MEAN CORPUSCULAR HEMOGLOBIN 19.7 PG (27.0-34.0); PLATELET COUNT 859 TH/MM3 (150-450); RED BLOOD COUNT 4.28 MIL/MM3 (4.50-5.90); WHITE BLOOD COUNT 39.8 TH/MM3 (4.0-11.0)
[2016-11-03 05:43] LABS: REVIEW FLAG FINAL
[2016-11-03] MEDS: PHENYTOIN SUSP 100 MG/4 ML CUP PEG SCH ×2 (08:46→20:54)
[2016-11-03] MEDS: SENNOSIDES SYRUP 8.8 MG/5 ML CUP PO SCH (08:46)
[2016-11-03] MEDS: FAMOTIDINE 20 MG TAB NG SCH ×2 (08:47→20:53)
[2016-11-03] MEDS: TOPIRAMATE 100 MG TAB GT SCH ×2 (08:47→20:53)
[2016-11-03] MEDS: DEXT 5%-NACL 0.45% 1000 ML INJ 1,000 ML IV SCH ×3 (08:47→19:15)
[2016-11-03] MEDS: FLUDROCORTISONE ACETATE 0.1 MG TAB PO SCH (08:48)
[2016-11-03] MEDS: POLYETHYLENE GLYCOL 17 GM PKG PO SCH (08:48)
[2016-11-03] MEDS: PROPOFOL 1000 MG/100 ML INJ 100 ML IV SCH (08:49)
[2016-11-03] MEDS ORDERED: Vancomycin Consult Pharmacy 1 EA OTHER SCH (11:45)
--- NOTE | 2016-11-03 11:48 | HHI.IDPN ---
Subjective Subjective Remarks Mr. Thakur is a 36-year-old male with past medical history significant for cerebral palsy, seizure disorder, mental retardation, previous history of hospitalization for aspiration pneumonia. Patient now admitted for Aspiration PNA, Sepsis, acute metabolic encephalopathy and Ileus. Notes reviewed D/W RN Appears lethargic and less responsive today. WBC at 39.8 F Hypotensive recd 1 L of IVF last night followed by pressors. No rash UO good. Tolerating tube feeds. No vomiting overnight. s/p GJ tube 3 days back. Antibiotics Unasyn IV Lines Line sites with no e/o infection Past Medical History reviewed Allergies: Coded Allergies: No Known Allergies (Unverified , 06/21/16) Objective . Vital Signs Date Time Temp Pulse Resp B/P Pulse Ox O2 Delivery O2 Flow Rate FiO2 11/03/16 10:00 102 11/03/16 09:48 100 30 11/03/16 08:46 30 11/03/16 08:42 100 30 11/03/16 08:00 30 11/03/16 08:00 116 11/03/16 08:00 99.0 116 24 91/51 100 11/03/16 06:00 120 11/03/16 05:00 94/53 11/03/16 04:40 100 30 11/03/16 04:00 97.9 113 22 88/55 100 11/03/16 04:00 30 11/03/16 04:00 113 11/03/16 02:00 120 11/03/16 01:45 100 30 11/03/16 00:00 119 11/03/16 00:00 30 11/03/16 00:00 98.8 119 24 93/54 100 11/02/16 22:35 100 30 11/02/16 22:00 120 11/02/16 20:00 30 11/02/16 20:00 115 11/02/16 20:00 97.8 117 18 89/50 100 11/02/16 18:00 112 11/02/16 16:00 99.7 107 20 106/67 100 11/02/16 16:00 107 11/02/16 16:00 30 11/02/16 15:51 100 30 11/02/16 15:41 100 30 11/02/16 14:00 85 11/02/16 12:00 80 11/02/16 12:00 30 11/02/16 12:00 97.9 80 22 97/58 100 11/02/16 11:50 30 11/02/16 11:47 100 30 11/02/16 11/02/16 11/03/16 15:00 23:00 07:00 Intake Total 1819 ml 716 ml 2513 ml Output Total 1000 ml 1100 ml 400 ml Balance 819 ml -384 ml 2113 ml IV Total 1306 ml 260 ml 1802 ml Tube Feeding 213 ml 206 ml 211 ml Other 300 ml 250 ml 500 ml Output Urine Total 1000 ml 1100 ml 400 ml # Bowel Movements 0 0 1 . Laboratory Tests Test 11/02/16 11/03/16 03:50 03:47 White Blood Count 11.5 TH/MM3 39.8 TH/MM3 Red Blood Count 4.42 MIL/MM3 4.28 MIL/MM3 Hemoglobin 9.2 GM/DL 8.4 GM/DL Hematocrit 30.0 % 30.0 % Mean Corpuscular Volume 67.9 FL 70.1 FL Mean Corpuscular Hemoglobin 20.7 PG 19.7 PG Mean Corpuscular Hemoglobin 30.6 % 28.1 % Concent Red Cell Distribution Width 27.7 % 28.0 % Platelet Count 888 TH/MM3 859 TH/MM3 Mean Platelet Volume 8.4 FL 9.1 FL Hematology Comments Laboratory Tests Test 11/02/16 11/02/16 11/03/16 03:50 18:48 03:47 Sodium Level 148 MEQ/L 143 MEQ/L Potassium Level 2.8 MEQ/L 3.7 MEQ/L 4.2 MEQ/L Chloride Level 118 MEQ/L 112 MEQ/L Carbon Dioxide Level 22.5 MEQ/L 18.9 MEQ/L Anion Gap 8 MEQ/L 12 MEQ/L Blood Urea Nitrogen LESS THAN 1 LESS THAN 1 MG/DL MG/DL Creatinine 0.55 MG/DL 0.68 MG/DL Estimat Glomerular Filtration 207 ML/MIN 162 ML/MIN Rate Random Glucose 83 MG/DL 79 MG/DL Calcium Level 7.0 MG/DL 6.8 MG/DL Protein Corrected Calcium 7.6 MG/DL 7.5 MG/DL Total Protein 6.0 GM/DL 5.8 GM/DL Imaging Last Impressions Abdomen X-Ray 10/27/16 0600 Signed Impressions: Service Date/Time: Thursday, October 27, 2016 05:56 - CONCLUSION: Probable ileus pattern. Close clinical and radiographic followup recommended. Oj Shipley MD Chest X-Ray 10/26/16 0000 Signed Impressions: Service Date/Time: October 08:29 - CONCLUSION: Stable endotracheal tube which appears slightly high. Stable airspace consolidation within the right hemithorax. Iesha Murray MD CT Angiography 10/23/16 1712 Signed Impressions: Service Date/Time: Sunday, October 23, 2016 19:27 - CONCLUSION: 1. Negative for pulmonary embolus. 2. Diffuse bilateral airspace disease most characteristic of aspiration or pneumonia. 3. Endotracheal tube in satisfactory position. There is some mucoid debris in the airways. 4. Gallstones. Ileus. Scoliosis. Michael Feldman MD Abdomen/Pelvis CT 10/23/16 1625 Signed Impressions: Service Date/Time: Sunday, October 23, 2016 19:27 - CONCLUSION: 1. Multiple gallstones. Diffuse ileus. Scoliosis with bilateral hip dysplasia. Basilar lung disease. See chest CT. Michael Feldman MD Physical Exam GENERAL: Lethargic on vent. SKIN: No rashes. Warm and dry HEAD: Atraumatic. No temporal or scalp tenderness. EYES: Pupils equal round and reactive. No scleral icterus. No injection or drainage. ENT: Nose without bleeding, purulent drainage or septal hematoma. ET in mouth NECK: Trachea midline. Supple, nontender, no meningeal signs. Scar in neck from previous trach CARDIOVASCULAR: HS audible. RESPIRATORY: Has scattered rhonchi GASTROINTESTINAL: Abdomen soft, distended,tender, no rebound or rigidity. GJ tube site ok. MUSCULOSKELETAL: Extremities with contractures and deformities. No joint effusion, or edema noted. NEUROLOGICAL: Lethargic. Opens eyes when abdomen examined. Extremities spastic and contracted Psych: could not be assessed. IV line sites with no e/o infection. Assessment & Plan Remarks Septic Shock new. Pneumonia present on admission: Aspiration pneumonia appears to be most likely. Although patient lives in the community and would like to rule out community- acquired pneumonia as well as atypical pneumonia. Staph auricularis bacteremia likely contamination Acute metabolic encephalopathy: At baseline patient has cerebral palsy with developmental delay but reportedly there has been a change from baseline. High-grade leukocytosis: Likely Leukemoid reaction, SIRS from chemical pneumonitis as well as aspiration related bacterial pneumonia. 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 History of Brina fundoplication as well as exploratory laparotomy for small bowel obstruction. Patient is at risk for recurrent aspiration pneumonia due to his history of Brina fundoplication, developmental delay, seizure disorder, scoliosis, distorted GI as well as skeletal anatomy. Recommendations: Check cuadra cultures repeat WBC count. DC Unasyn IV Check lactic acid sepsis protocol. CT C/A/P with contrast (follow up extensive pneumonia and GJ tube site related peritonitis or abscess) Start Zosyn IV Start Vanco IV Start Micafungin (possible intra abdominal abscess) Needs central line placement d/w KYA Tobar. Critical thinking and decision making. D/W Janet Stinson MD Nov 03, 2016 11:48
[2016-11-03] MEDS ORDERED: DIATRIZOATE MEGLUM/DIATRIZOATE SOD 9 ML CUP PO ONE (12:30)
[2016-11-03] MEDS: PIPERACIL-TAZO 4.5 GM PREMIX 100 ML IV SCH ×2 (12:52→20:53)
[2016-11-03] MEDS: MICAFUNGIN INJ 150 MG in SODIUM CHLORIDE 0.9% INJ 100 ML IV SCH (14:11)
[2016-11-03] MEDS: VANCOMYCIN INJ 750 MG in SODIUM CHLOR 0.9% 250 ML INJ 250 ML IV SCH (15:20)
--- NOTE | 2016-11-03 17:54 | HHI.CCPN ---
Subjective Remarks/Hospital Course 10/23: Pneumonia, Respiratory Failure, Severe Sepsis - The patient is a 36-year- old male with a past medical history of cerebral palsy, seizure disorder, mental retardation, previous hospitalization for aspiration pneumonia who presented to [facility] ED after family found him more disoriented than usual and had been vomiting. In the ED the patient was found febrile with temperature of 102.1 rectally, tachycardiac with heart rate in the 130s to 150s and tachypneic. In addition the patient was hypoxemic on non-rebreather and he was subsequently intubated with etomidate, vecuronium and placed on full mechanical ventilation. 10/24: Severe sepsis persists despite broad abx coverage. Urine output improving after aggressive resuscitation. 10/25: GNR in sputum. Continue broad abx coverage pending speciation. Gas exchange improved. 10/26: He remains obstructed with a colon ileus and constipation. Right lung infiltrate persists. Bandemia persists. 10/27: Colon is frighteningly large. Hypokalemia complicating ileus. 10/28: Colon much less distended. Hypokalemia persists despite aggressive replacement. Respiratory failure from pneumonia persists. 10/29: Remains orally intubated on mech ventilation. 10/30: Awake, orally intubated on mechanical ventilation. Hypothermic today. Started on Taryn hugger. Did not tolerate tube feeds overnight. OG tube To suction currently. 10/31: Sedated, easily arousable, orally intubated on mechanical ventilation. GJ tube by IR today 11/01: arousable, still sedated. failing SBT. 11/02: arousable. passed SBT today. still has significant secretions. 11/03: Patient was diuresed yesterday, became hypotensive during the night requiring levophed infusion. Recent was noted have a significant elevation in WBC count. CT scan ordered. Objective Vital Signs Date Time Temp Pulse Resp B/P Pulse Ox O2 Delivery O2 Flow Rate FiO2 11/03/16 15:32 100 30 11/03/16 14:00 110 11/03/16 12:00 98.3 21 91/51 Intake and Output 11/02/16 11/02/16 11/03/16 08:00 16:00 00:00 Intake Total 1000 ml 1819 ml 716 ml Output Total 500 ml 1000 ml 1100 ml Balance 500 ml 819 ml -384 ml Result Diagram: 11/03/16 0347 11/03/16 0347 Imaging Last Impressions Abdomen X-Ray 10/28/16 0600 Signed Impressions: Service Date/Time: Friday, October 28, 2016 05:08 - CONCLUSION: Left lower lobe pulmonary consolidation. There are gas-filled dilated bowel loops identified though slightly decreased. Oj Shipley MD Chest X-Ray 10/26/16 0000 Signed Impressions: Service Date/Time: October 08:29 - CONCLUSION: Stable endotracheal tube which appears slightly high. Stable airspace consolidation within the right hemithorax. Iesha Murray MD CT Angiography 10/23/16 1712 Signed Impressions: Service Date/Time: Sunday, October 23, 2016 19:27 - CONCLUSION: 1. Negative for pulmonary embolus. 2. Diffuse bilateral airspace disease most characteristic of aspiration or pneumonia. 3. Endotracheal tube in satisfactory position. There is some mucoid debris in the airways. 4. Gallstones. Ileus. Scoliosis. Michael Feldman MD Abdomen/Pelvis CT 10/23/16 1625 Signed Impressions: Service Date/Time: Sunday, October 23, 2016 19:27 - CONCLUSION: 1. Multiple gallstones. Diffuse ileus. Scoliosis with bilateral hip dysplasia. Basilar lung disease. See chest CT. Michael Feldman MD Objective Remarks PHYSICAL EXAMINATION GENERAL: Critically ill 36-year-old male non-communicative HEENT: Atraumatic, normocephalic. Orally intubated. NECK: Supple. CARDIOVASCULAR EXAM: Tachycardic. Normal S1 and S2. No murmurs. No JVD. PULMONARY EXAM: Bilateral equal air entry. Diffuse rhonchi persist right. Left clear. Acceptable excursions on ventilator. ABDOMEN: Tenderness on palpation. firm, distended. G-tube in place. BS improved. EXTREMITIES: Warm, well perfused. NEUROLOGIC: awake and looking around. does not follow commands, chronically contractured joints. Cerebral palsy. Opens eyes spontaneously A/P Assessment and Plan IMPRESSION: 1. Acute hypoxemic respiratory failure requiring intubation. 2. Lactic acidemia- resolving. 3. Acute kidney injury- resolving 4. Aspiration pneumonia -> Klebsiella 5. Intractable nausea and vomiting. 9. Previous PEG tube placement. 10. History of cerebral palsy. 11. History of developmental delay. 12. History of seizure disorder. 13. History of recurrent aspiration pneumonia. 14. Colon ileus. 15. Hypokalemia. 16. Hypernatremia Plan: 1. Diprivan infusion if needed for sedation; daily sedation vacation. 2. Monitor neuro status closely. 3. Continue with vent support and maintain sats above 92%. secretions may be a barrier to extubation. he is near extubation, but his RSBI is still near 110. 4. Bronchodilators in the form of DuoNeb q. 6. 5. Vent bundle. Soft restraints. 6. CT pulmonary angiogram -> no PE. 7. TF jevity @ goal of 30. per tube pepcid for GI prophylaxis. 8. free water 250cc q4h per tube for hypernatremia. d/c mivf. spironolactone 25mg po x 1 for intravascular volume overload. 9. Zosyn/Zithromax discontinued on 10/31 and patient switched to IV Unasyn by ID 10. Monitor CBC. 11. SCDs and heparin sq. 12. On laxatives. Fleets enema stopped 10/30 13. Replace K, no narcotics. 14. Reglan 15. Obtain CT abdomen and pelvis Overall impression: He remains critically ill with hypoxemic respiratory failure , unable to wean from ventilator; continues to fail SBT. Now with significant leukocytosis. Right whole lung pneumonia is potentially fatal in this debilitated man. He remains distended from colon ileus and septic from Klebsiella pneumonia. Critical care 39 mins, exclusive of procedures. Physician Lois Marquez MD Nov 03, 2016 17:54
--- NOTE | 2016-11-03 23:18 | PD.PROCEDR ---
Procedure Note Procedure DATE: 11/03/16 CENTRAL LINE PLACEMENT: Right internal jugular vein. Ultrasound-guided. INDICATION: Central venous access CONSENT Informed consent for procedure was obtained from patient's mother. Signed consent is on the chart. DESCRIPTION OF THE PROCEDURE Prior attempts at R IJ site by Dr. Nina unsuccessful. Now patient has undergone hydration with fluids and remains on levophed, in need of CVL access. The patient was placed in supine position, Trendelenberg.. The skin was cleansed with Chloraprep x3. Additional barrier precautions included large sterile drape, sterile gloves, sterile gown, face mask, and hat. 1 % lidocaine was used for local anesthesia. Under direct ultrasound guidance and on single attempt, the vein was accessed with an introducer needle. The guide wire was advanced and the tract was dilated. Using Seldinger technique a 7 [place] 20 cm antimicrobial coated triple-lumen catheter was advanced to a depth of 17 centimeters. The guide wire was removed. The proximal and middle ports had good return of dark venous blood and flushed easily with saline. The distal port did not drawl. The central line was secured with 2.0 silk. A sterile dressing with antibiotic disc was applied. ESTIMATED BLOOD LOSS: Minimal COMPLICATIONS: No apparent complications. STAT chest x-ray is pending. Kaylene Root MD Nov 03, 2016 23:18
[2016-11-04] VITALS (19 sets, daily range): BP systolic 94–107; BP diastolic 57–69; PULSE 64–107; RESP 14–23; TEMP 97.4–98.7; O2SAT 98–100
--- NOTE | 2016-11-04 00:23 | RADRPT ---
EXAM DATE/TIME: 11/03/2016 23:14 [facility] COMPARISON: CHEST SINGLE AP, November 02, 2016, 5:34. INDICATIONS : Central line placement. MEDICAL HISTORY : Cardiovascular disease. Cerebral palsy SURGICAL HISTORY : None. ENCOUNTER: Initial ACUITY: 1 day PAIN SCORE: Non-responsive. LOCATION: Bilateral chest FINDINGS: Rotated AP view of the chest demonstrates a normal-sized cardiac silhouette. Endotracheal tube remain s present. Right IJ line has been placed and the distal tip is in the right atrium. There is mild pat saloni airspace consolidation throughout the right lung. No pneumothorax is visualized. There is severe dextroscoliosis of the thoracic spine. CONCLUSION: 1. Right IJ line distal tip in the right atrium. No pneumothorax is visualized. 2. Patchy airspace consolidation remains present throughout the right lung. Mg Darling MD on November 04, 2016 at 0:21 Board Certified Radiologist. This report was verified electronically.
[2016-11-04] MEDS: HEPARIN SODIUM - SQ 10,000 UNITS/ML VIAL SQ SCH ×4 (00:29→21:45)
[2016-11-04] MEDS: VANCOMYCIN INJ 750 MG in SODIUM CHLOR 0.9% 250 ML INJ 250 ML IV SCH ×2 (01:34→14:52)
[2016-11-04] MEDS: CHLORHEXIDINE GLUCONATE 2 % 1 PACK (2 CLOTHS) TOP SCH ×2 (04:00→21:40)
[2016-11-04] MEDS: PIPERACIL-TAZO 4.5 GM PREMIX 100 ML IV SCH ×3 (04:17→21:43)
[2016-11-04] MEDS: OXYBUTYNIN CHLORIDE 5 MG TAB PO SCH ×3 (05:12→21:44)
[2016-11-04] MEDS: FREE WATER G-TUBE SCH ×4 (07:45→20:00)
[2016-11-04] MEDS: POLYETHYLENE GLYCOL 17 GM PKG PO SCH (09:00)
[2016-11-04] MEDS: FAMOTIDINE 20 MG TAB NG SCH ×2 (09:03→21:44)
[2016-11-04] MEDS: FLUDROCORTISONE ACETATE 0.1 MG TAB PO SCH (09:04)
[2016-11-04] MEDS: SENNOSIDES SYRUP 8.8 MG/5 ML CUP PO SCH (09:04)
[2016-11-04] MEDS: PHENYTOIN SUSP 100 MG/4 ML CUP PEG SCH ×2 (09:05→21:44)
[2016-11-04] MEDS: TOPIRAMATE 100 MG TAB GT SCH ×2 (09:09→21:43)
[2016-11-04 09:42] LABS: HEMATOCRIT 26.9 % (39.0-51.0); MEAN CELL VOLUME 68.1 FL (80.0-100.0); MEAN CORPUSCULAR HEMOGLOBIN 20.9 PG (27.0-34.0); MEAN CORPUSCULAR HGB CONC 30.7 % (32.0-36.0); PLATELET COUNT 736 TH/MM3 (150-450); RED BLOOD COUNT 3.95 MIL/MM3 (4.50-5.90); RED CELL DISTRIBUTION WIDTH 28.2 % (11.6-17.2); WHITE BLOOD COUNT 50.1 TH/MM3 (4.0-11.0)
[2016-11-04 09:56] LABS: REVIEW FLAG FINAL
[2016-11-04 10:25] LABS: BICARBONATE 23.7 MEQ/L (21.0-32.0)
[2016-11-04 10:50] LABS: POTASSIUM 2.1 MEQ/L (3.5-5.1)
[2016-11-04] MEDS: DEXT 5%-NACL 0.45% 1000 ML INJ 1,000 ML IV SCH ×2 (11:33→18:50)
[2016-11-04] MEDS: POTASSIUM CHLOR 40 MEQ PREMIX 100 ML IV PRN ×2 (11:33→11:55)
[2016-11-04] MEDS: MICAFUNGIN INJ 150 MG in SODIUM CHLORIDE 0.9% INJ 100 ML IV SCH (13:16)
[2016-11-04] MEDS: NOREPINEPHRINE-DEXTROSE DRIP 250 ML IV SCH (14:55)
--- NOTE | 2016-11-04 18:05 | HHI.CCPN ---
Subjective Remarks/Hospital Course 10/23: Pneumonia, Respiratory Failure, Severe Sepsis - The patient is a 36-year- old male with a past medical history of cerebral palsy, seizure disorder, mental retardation, previous hospitalization for aspiration pneumonia who presented to [facility] ED after family found him more disoriented than usual and had been vomiting. In the ED the patient was found febrile with temperature of 102.1 rectally, tachycardiac with heart rate in the 130s to 150s and tachypneic. In addition the patient was hypoxemic on non-rebreather and he was subsequently intubated with etomidate, vecuronium and placed on full mechanical ventilation. 10/24: Severe sepsis persists despite broad abx coverage. Urine output improving after aggressive resuscitation. 10/25: GNR in sputum. Continue broad abx coverage pending speciation. Gas exchange improved. 10/26: He remains obstructed with a colon ileus and constipation. Right lung infiltrate persists. Bandemia persists. 10/27: Colon is frighteningly large. Hypokalemia complicating ileus. 10/28: Colon much less distended. Hypokalemia persists despite aggressive replacement. Respiratory failure from pneumonia persists. 10/29: Remains orally intubated on mech ventilation. 10/30: Awake, orally intubated on mechanical ventilation. Hypothermic today. Started on Taryn hugger. Did not tolerate tube feeds overnight. OG tube To suction currently. 10/31: Sedated, easily arousable, orally intubated on mechanical ventilation. GJ tube by IR today 11/01: arousable, still sedated. failing SBT. 11/02: arousable. passed SBT today. still has significant secretions. 11/03: Patient was diuresed yesterday, became hypotensive during the night requiring levophed infusion. Recent was noted have a significant elevation in WBC count. CT scan ordered. 11/04: Patient hypovolemic, central line placed last evening. Levophed continued at 2 mcgs, CVP monitoring initiated. CT scan results pending, repeat cultures obtained. Objective Vital Signs Date Time Temp Pulse Resp B/P Pulse Ox O2 Delivery O2 Flow Rate FiO2 11/04/16 16:21 100 30 11/04/16 14:00 77 11/04/16 12:00 97.4 14 103/64 Intake and Output 11/03/16 11/03/16 11/04/16 08:00 16:00 00:00 Intake Total 2513 ml 1449 ml 1345 ml Output Total 400 ml 2150 ml 1100 ml Balance 2113 ml -701 ml 245 ml Result Diagram: 11/04/16 0845 11/04/16 0845 Imaging Last Impressions Chest X-Ray 11/03/16 0000 Signed Impressions: Service Date/Time: Thursday, November 03, 2016 23:14 - CONCLUSION: 1. Right IJ line distal tip in the right atrium. No pneumothorax is visualized. 2. Patchy airspace consolidation remains present throughout the right lung. Mg Darling MD Gastrostomy Tube Change 10/31/16 0000 Signed Impressions: Service Date/Time: Monday, October 31, 2016 15:06 - CONCLUSION: 1. Uncomplicated conversion from gastrostomy to gastrojejunostomy Young Queen MD Abdomen X-Ray 10/28/16 0600 Signed Impressions: Service Date/Time: Friday, October 28, 2016 05:08 - CONCLUSION: Left lower lobe pulmonary consolidation. There are gas-filled dilated bowel loops identified though slightly decreased. Oj Shipley MD CT Angiography 10/23/16 1712 Signed Impressions: Service Date/Time: Sunday, October 23, 2016 19:27 - CONCLUSION: 1. Negative for pulmonary embolus. 2. Diffuse bilateral airspace disease most characteristic of aspiration or pneumonia. 3. Endotracheal tube in satisfactory position. There is some mucoid debris in the airways. 4. Gallstones. Ileus. Scoliosis. Michael Feldman MD Abdomen/Pelvis CT 10/23/16 1625 Signed Impressions: Service Date/Time: Sunday, October 23, 2016 19:27 - CONCLUSION: 1. Multiple gallstones. Diffuse ileus. Scoliosis with bilateral hip dysplasia. Basilar lung disease. See chest CT. Michael Feldman MD Last Impressions Abdomen X-Ray 10/28/16 0600 Signed Impressions: Service Date/Time: Friday, October 28, 2016 05:08 - CONCLUSION: Left lower lobe pulmonary consolidation. There are gas-filled dilated bowel loops identified though slightly decreased. Oj Shipley MD Chest X-Ray 10/26/16 0000 Signed Impressions: Service Date/Time: October 08:29 - CONCLUSION: Stable endotracheal tube which appears slightly high. Stable airspace consolidation within the right hemithorax. Iesha Murray MD CT Angiography 10/23/16 1712 Signed Impressions: Service Date/Time: Sunday, October 23, 2016 19:27 - CONCLUSION: 1. Negative for pulmonary embolus. 2. Diffuse bilateral airspace disease most characteristic of aspiration or pneumonia. 3. Endotracheal tube in satisfactory position. There is some mucoid debris in the airways. 4. Gallstones. Ileus. Scoliosis. Michael Feldman MD Abdomen/Pelvis CT 10/23/16 1625 Signed Impressions: Service Date/Time: Sunday, October 23, 2016 19:27 - CONCLUSION: 1. Multiple gallstones. Diffuse ileus. Scoliosis with bilateral hip dysplasia. Basilar lung disease. See chest CT. Michael Feldman MD Objective Remarks PHYSICAL EXAMINATION GENERAL: Critically ill 36-year-old male non-communicative HEENT: Atraumatic, normocephalic. Orally intubated. NECK: Supple. CARDIOVASCULAR EXAM: Tachycardic. Normal S1 and S2. No murmurs. No JVD. PULMONARY EXAM: Bilateral equal air entry. Diffuse rhonchi persist right. Left clear. Acceptable excursions on ventilator. ABDOMEN: Tenderness on palpation. firm, distended. G-tube in place. BS improved. EXTREMITIES: Warm, well perfused. NEUROLOGIC: awake and looking around. does not follow commands, chronically contractured joints. Cerebral palsy. Opens eyes spontaneously Urinary Catheter: Yes Vascular Central Line Catheter: Yes Date of Insertion: Nov 03, 2016 Line: Central Venous Catheter Side: Right Location: Internal, Jugular (vasoactive medication) A/P Assessment and Plan IMPRESSION: 1. Acute hypoxemic respiratory failure requiring intubation. 2. Lactic acidemia- resolving. 3. Acute kidney injury- resolving 4. Aspiration pneumonia -> Klebsiella 5. Intractable nausea and vomiting. 9. Previous PEG tube placement. 10. History of cerebral palsy. 11. History of developmental delay. 12. History of seizure disorder. 13. History of recurrent aspiration pneumonia. 14. Colon ileus. 15. Hypokalemia. 16. Hypernatremia 17. Hypovolemia Plan: 1. Diprivan infusion if needed for sedation; daily sedation vacation. 2. Monitor neuro status closely. 3. Continue with vent support and maintain sats above 92%. secretions may be a barrier to extubation. he is near extubation, but his RSBI is still near 110. 4. Bronchodilators in the form of DuoNeb q. 6. 5. Vent bundle. Soft restraints. 6. CT pulmonary angiogram -> no PE. 7. TF jevity @ goal of 30. per tube pepcid for GI prophylaxis. 8. free water 250cc q4h per tube for hypernatremia. d/c mivf. spironolactone 25mg po x 1 for intravascular volume overload. 9. Zosyn/Zithromax discontinued on 10/31 and patient switched to IV Unasyn by ID 10. Monitor CBC. 11. SCDs and heparin sq. 12. On laxatives. Fleets enema stopped 10/30 13. Replace K, no narcotics. 14. Reglan 15. Obtain CT abdomen and pelvis-F/u results 16. Albumin given , volume resuscitation Monitor CVP Overall impression: He remains critically ill with hypoxemic respiratory failure , unable to wean from ventilator; continues to fail SBT. Now with significant leukocytosis. Right whole lung pneumonia . Prognosis is guarded. Critical care 35 mins, exclusive of procedures. Physician Lois Marquez MD Nov 04, 2016 18:05
[2016-11-04] MEDS ORDERED: CALCIUM GLUCONATE INJ 2 GM in DEXTROSE 5% IN WATER 100ML INJ 100 ML IV ONE ×2 (18:15)
[2016-11-04] MEDS ORDERED: IOHEXOL 350 MG/ML 10 ML VIAL (for RAD DIAG) IV ONE (18:16)
--- NOTE | 2016-11-04 19:04 | HHI.IDPN ---
Note Infectious Disease Note ID coverage. Notes reviewed. Patient on 2mcg Levophed. On vent. Awake and tracks with eyes. Afebrile. WBC elevated. Mr. Thakur is a 36-year-old male with past medical history significant for cerebral palsy, seizure disorder, mental retardation, previous history of hospitalization for aspiration pneumonia. Patient now admitted for Aspiration PNA, Sepsis, acute metabolic encephalopathy and Ileus. Antibiotics Unasyn IV Lines Line sites with no e/o infection Past Medical History reviewed Allergies: Coded Allergies: No Known Allergies (Unverified , 06/21/16) Objective Objective . Vital Signs Date Time Temp Pulse Resp B/P Pulse Ox O2 Delivery O2 Flow Rate FiO2 11/04/16 18:13 100 11/04/16 16:21 100 30 11/04/16 14:00 77 11/04/16 12:15 100 30 11/04/16 12:00 30 11/04/16 12:00 64 11/04/16 12:00 97.4 64 14 103/64 100 11/04/16 10:00 73 11/04/16 08:30 30 11/04/16 08:30 30 11/04/16 08:30 100 30 11/04/16 08:00 30 11/04/16 08:00 77 11/04/16 08:00 97.4 75 16 95/65 100 11/04/16 06:00 82 11/04/16 04:50 100 30 11/04/16 04:00 98.2 83 23 94/57 100 11/04/16 04:00 30 11/04/16 04:00 83 11/04/16 02:00 100 11/04/16 00:40 100 30 11/04/16 00:00 100 11/04/16 00:00 30 11/04/16 00:00 98.4 100 23 104/66 100 11/03/16 22:00 102 11/03/16 21:27 30 11/03/16 21:13 99 30 11/03/16 20:00 104 11/03/16 20:00 98.2 102 15 86/59 100 11/03/16 20:00 30 11/03/16 11/03/16 11/04/16 15:00 23:00 07:00 Intake Total 1449 ml 1345 ml 1119 ml Output Total 2150 ml 1100 ml 1150 ml Balance -701 ml 245 ml -31 ml Intake Oral 0 ml 0 ml IV Total 1295 ml 1059 ml Tube Feeding 239 ml Tube Irrigant 250 ml Other 960 ml 50 ml 60 ml Output Urine Total 2150 ml 1100 ml 1150 ml # Bowel Movements 1 0 1 Laboratory Tests Test 11/03/16 11/04/16 11/04/16 03:47 00:00 08:45 White Blood Count 39.8 TH/MM3 56.2 TH/MM3 50.1 TH/MM3 Red Blood Count 4.28 MIL/MM3 3.95 MIL/MM3 Hemoglobin 8.4 GM/DL 8.3 GM/DL Hematocrit 30.0 % 26.9 % Mean Corpuscular Volume 70.1 FL 68.1 FL Mean Corpuscular Hemoglobin 19.7 PG 20.9 PG Mean Corpuscular Hemoglobin 28.1 % 30.7 % Concent Red Cell Distribution Width 28.0 % 28.2 % Platelet Count 859 TH/MM3 736 TH/MM3 Mean Platelet Volume 9.1 FL 8.3 FL Hematology Comments Laboratory Tests Test 11/03/16 11/04/16 11/04/16 03:47 00:03 08:45 Sodium Level 143 MEQ/L 145 MEQ/L Potassium Level 4.2 MEQ/L 2.1 MEQ/L Chloride Level 112 MEQ/L 114 MEQ/L Carbon Dioxide Level 18.9 MEQ/L 23.7 MEQ/L Anion Gap 12 MEQ/L 7 MEQ/L Blood Urea Nitrogen LESS THAN 1 4 MG/DL MG/DL Creatinine 0.68 MG/DL 0.58 MG/DL Estimat Glomerular Filtration 162 ML/MIN 194 ML/MIN Rate Random Glucose 79 MG/DL 87 MG/DL Calcium Level 6.8 MG/DL 6.5 MG/DL Protein Corrected Calcium 7.5 MG/DL 7.0 MG/DL Total Protein 5.8 GM/DL 6.0 GM/DL Lactic Acid Level 1.9 mmol/L Microbiology Date/Time Procedure Status Source Growth 11/04/16 00:15 Aerobic Blood Culture Received Blood Peripheral Pending 11/04/16 00:15 Anaerobic Blood Culture Received Blood Peripheral Pending Imaging Chest X-Ray 11/03/16 0000 Signed Impressions: Service Date/Time: Thursday, November 03, 2016 23:14 - CONCLUSION: 1. Right IJ line distal tip in the right atrium. No pneumothorax is visualized. 2. Patchy airspace consolidation remains present throughout the right lung. Mg Darling MD Abdomen X-Ray 10/27/16 0600 Signed Impressions: Service Date/Time: Thursday, October 27, 2016 05:56 - CONCLUSION: Probable ileus pattern. Close clinical and radiographic followup recommended. Oj Shipley MD Chest X-Ray 10/26/16 0000 Signed Impressions: Service Date/Time: October 08:29 - CONCLUSION: Stable endotracheal tube which appears slightly high. Stable airspace consolidation within the right hemithorax. Iesha Murray MD CT Angiography 10/23/16 1712 Signed Impressions: Service Date/Time: Sunday, October 23, 2016 19:27 - CONCLUSION: 1. Negative for pulmonary embolus. 2. Diffuse bilateral airspace disease most characteristic of aspiration or pneumonia. 3. Endotracheal tube in satisfactory position. There is some mucoid debris in the airways. 4. Gallstones. Ileus. Scoliosis. Michael Feldman MD Abdomen/Pelvis CT 10/23/16 1625 Signed Impressions: Service Date/Time: Sunday, October 23, 2016 19:27 - CONCLUSION: 1. Multiple gallstones. Diffuse ileus. Scoliosis with bilateral hip dysplasia. Basilar lung disease. See chest CT. Michael Feldman MD Physical Exam GENERAL: Patient is in no acute distress. On ventilator. Awake. HEENT: EOMI, No icterus. NECK: Supple. LUNGS: Clear breath sounds. no rhonchi. CARDIAC: Regular rate and rhythm ABDOMEN: Soft, non tender. No masses. EXTREMITIES: No CCE. Contracture of extremities. SKIN: No rash. Assessment & Plan Remarks Septic Shock new. Pneumonia present on admission: Aspiration pneumonia appears to be most likely. Although patient lives in the community and would like to rule out community- acquired pneumonia as well as atypical pneumonia. Staph auricularis bacteremia likely contamination Acute metabolic encephalopathy: At baseline patient has cerebral palsy with developmental delay but reportedly there has been a change from baseline. High-grade leukocytosis: Likely Leukemoid reaction, SIRS from chemical pneumonitis as well as aspiration related bacterial pneumonia. 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 History of Brina fundoplication as well as exploratory laparotomy for small bowel obstruction. Patient is at risk for recurrent aspiration pneumonia due to his history of Brina fundoplication, developmental delay, seizure disorder, scoliosis, distorted GI as well as skeletal anatomy. Recommendations: Monitor CBC. CT C/A/P with contrast (follow up extensive pneumonia and GJ tube site related peritonitis or abscess) Monitor CT results Continue Zosyn. Continue Vancomycin IV Continue Micafungin (possible intra abdominal abscess) .Monitor cultures. Mendoza Armando MD Nov 04, 2016 19:04
--- NOTE | 2016-11-04 19:09 | RADRPT ---
EXAM DATE/TIME: 11/04/2016 17:34 [facility] COMPARISON: CT PULMONARY ANGIOGRAM, October 23, 2016, 19:27. INDICATIONS : Short of breath, infection. IV CONTRAST: 90 cc Omnipaque 350 (iohexol) IV RADIATION DOSE: 5.33 CTDIvol (mGy) MEDICAL HISTORY : Seizures. Gastroesophageal reflux disease. Cerebral palsy SURGICAL HISTORY : Splenectomy. J-tube, Brina furdoplication. ENCOUNTER: Initial ACUITY: 1 day PAIN SCALE: 5/10 LOCATION: chest TECHNIQUE: Volumetric scanning of the chest was performed. Using automated exposure control and adjustment of t he mA and/or kV according to patient size, radiation dose was kept as low as reasonably achievable to obtain optimal diagnostic quality images. FINDINGS: Comparison is October 23. Previous airspace consolidation in the right lung has improved. There is a new dense consolidation in the left lower lobe characteristic of pneumonia or aspiration. Small bilat eral pleural effusions are present, new since October 23. The esophagus is distended and there is a h iatal hernia. Endotracheal tube tip is just below the thoracic inlet. Right [id number] is near cav oatrial junction. There is a scoliosis. Ileus upper abdomen. CONCLUSION: Compared with October 23 there is new dense consolidation left lower lobe most characteristic of pneu monia or aspiration. Improved airspace disease on the right since prior exam. New small bilateral ple ural effusions. Michael Feldman MD on November 04, 2016 at 19:03 Board Certified Radiologist. This report was verified electronically.
--- NOTE | 2016-11-04 19:12 | RADRPT ---
EXAM DATE/TIME: 11/04/2016 17:38 [facility] COMPARISON: No previous studies available for comparison. INDICATIONS : Abdomen pain, infection. IV CONTRAST: 90 cc Omnipaque 350 (iohexol) IV ORAL CONTRAST: No oral contrast ingested. RADIATION DOSE: 5.33 CTDIvol (mGy) MEDICAL HISTORY : Seizures. Gastroesophageal reflux disease. cerebral palsy SURGICAL HISTORY : Splenectomy. J-tube, roel furdoplication. ENCOUNTER: Initial ACUITY: 1 day PAIN SCALE: 5/10 LOCATION: abdomen TECHNIQUE: Volumetric scanning of the abdomen and pelvis was performed. Using automated exposure control and ad justment of the mA and/or kV according to patient size, radiation dose was kept as low as reasonably achievable to obtain optimal diagnostic quality images. FINDINGS: Compare October 23. Dense consolidation left lower lobe is new since prior study. New small bilateral pleural effusions. Hiatal hernia with dilated distal esophagus. There is mild anasarca. Feeding jejunostomy tube is present in the upper abdomen. There is diffuse il eus. Again seen is bilateral hip dysplasia. The catheter in decompressed bladder. Mild mural thickeni ng of the distal colon. No acute findings the visualized liver, kidneys, adrenals or pancreas. Spleen not visualized. CONCLUSION: 1. Feeding jejunostomy now present in upper abdomen. Diffuse ileus. No evidence for obstruction. Mult iple calcified gallstones. 2. Mild mural thickening of the colon especially distally which may indicate mild colitis. Michael Feldman MD on November 04, 2016 at 19:07 Board Certified Radiologist. This report was verified electronically.
[2016-11-05] VITALS (18 sets, daily range): BP systolic 82–104; BP diastolic 55–66; PULSE 79–108; RESP 16–26; TEMP 97.6–99.2; O2SAT 98–100
[2016-11-05] MEDS ORDERED: PHARMACY ORDERED LAB XX ONE (01:45)
[2016-11-05 02:37] LABS: AUTOMATED NEUTROPHIL # 16.3 TH/MM3 (1.8-7.7); BASOPHIL # 0.2 TH/MM3 (0-0.2); BASOPHIL % 0.7 % (0.0-2.0); EOSINOPHIL # 0.1 TH/MM3 (0-0.4); EOSINOPHIL % 0.3 % (0.0-4.0); LYMPH % 33.8 % (9.0-44.0); LYMPHOCYTE # 8.8 TH/MM3 (1.0-4.8); MEAN CELL VOLUME 67.1 FL (80.0-100.0); MEAN CORPUSCULAR HEMOGLOBIN 20.4 PG (27.0-34.0); MEAN CORPUSCULAR HGB CONC 30.5 % (32.0-36.0); MONO % 2.4 % (0.0-8.0); NEUT % 62.8 % (16.0-70.0); PLATELET COUNT 770 TH/MM3 (150-450); RED BLOOD COUNT 4.02 MIL/MM3 (4.50-5.90)
[2016-11-05 02:38] LABS: HEMO FLAGS AUTO DIFF
[2016-11-05] MEDS: VANCOMYCIN INJ 750 MG in SODIUM CHLOR 0.9% 250 ML INJ 250 ML IV SCH ×2 (02:41→15:56)
[2016-11-05 03:07] LABS: BANDS 25 % (0-6); EOSINOPHILS 1 % (0-4); NEUTROPHIL # MANUAL DIFF 23.4 TH/MM3 (1.8-7.7); POLYS (SEG NEUTROPHILS) 65 % (16-70); WBC DIFF SAMPLE 100
[2016-11-05 03:12] LABS: TARGET CELLS 2+ (NORMAL)
[2016-11-05 03:13] LABS: ACANTHOCYTES 1+ (NORMAL); DOHLE BODIES PRESENT (NONE SEEN); PLATELET ESTIMATE SMEAR HIGH (NORMAL); PLATELET MORPHOLOGY NORMAL (NORMAL); SCAN/DIFF FINAL DIFF MANUAL; TOXIC VACUOLATION PRESENT (NONE SEEN)
[2016-11-05 03:37] LABS: BICARBONATE 23.5 MEQ/L (21.0-32.0); MAGNESIUM 1.3 MG/DL (1.5-2.5)
[2016-11-05 03:41] LABS: POTASSIUM 2.4 MEQ/L (3.5-5.1)
[2016-11-05 03:53] LABS: CALCIUM-PROTEIN CORRECTED 7.8 MG/DL (8.5-10.1)
[2016-11-05] MEDS: FREE WATER G-TUBE SCH ×4 (04:00→13:29)
[2016-11-05] MEDS: POTASSIUM CHLOR 20 MEQ PREMIX 100 ML IV PRN (04:48)
[2016-11-05] MEDS: DEXT 5%-NACL 0.45% 1000 ML INJ 1,000 ML IV SCH ×2 (04:48→13:30)
[2016-11-05] MEDS: PIPERACIL-TAZO 4.5 GM PREMIX 100 ML IV SCH ×3 (06:35→23:37)
[2016-11-05] MEDS: OXYBUTYNIN CHLORIDE 5 MG TAB PO SCH ×3 (06:36→23:38)
--- NOTE | 2016-11-05 06:57 | RADRPT ---
EXAM DATE/TIME: 11/05/2016 06:19 [facility] COMPARISON: CT THORAX W CONTRAST, November 04, 2016, 17:34. CHEST SINGLE AP, November 03, 2016, 23:14. INDICATIONS : Shortness of breath, possible pulmonary disease. MEDICAL HISTORY : Cardiovascular disease. cerebral palsy SURGICAL HISTORY : None. ENCOUNTER: Subsequent ACUITY: 2 weeks PAIN SCORE: Non-responsive. LOCATION: Bilateral chest FINDINGS: Rotated and underinflated AP view of the chest demonstrates a normal-sized cardiac silhouette. ETT an d right IJ central line remain present. There is patchy airspace consolidation throughout the right l hector and mild left lower lobe consolidation. No pleural effusion or pneumothorax is appreciated. There is dextroscoliosis. CONCLUSION: Stable bilateral airspace consolidation, right greater than left. Mg Darling MD on November 05, 2016 at 6:55 Board Certified Radiologist. This report was verified electronically.
[2016-11-05] MEDS: POLYETHYLENE GLYCOL 17 GM PKG PO SCH (09:00)
[2016-11-05] MEDS: FAMOTIDINE 20 MG TAB NG SCH ×2 (09:59→23:38)
[2016-11-05] MEDS: FLUDROCORTISONE ACETATE 0.1 MG TAB PO SCH (09:59)
[2016-11-05] MEDS: PHENYTOIN SUSP 100 MG/4 ML CUP PEG SCH ×2 (09:59→23:37)
[2016-11-05] MEDS: HEPARIN SODIUM - SQ 10,000 UNITS/ML VIAL SQ SCH ×2 (10:00→15:56)
[2016-11-05] MEDS: TOPIRAMATE 100 MG TAB GT SCH ×2 (10:00→23:38)
[2016-11-05] MEDS: SENNOSIDES SYRUP 8.8 MG/5 ML CUP PO SCH ×2 (10:00→21:00)
[2016-11-05] MEDS: POTASSIUM PHOSPHATE INJ 30 MMOL in SODIUM CHLOR 0.9% 250 ML INJ 250 ML IV PRN (10:01)
[2016-11-05] MEDS: MICAFUNGIN INJ 150 MG in SODIUM CHLORIDE 0.9% INJ 100 ML IV SCH (13:29)
[2016-11-05] MEDS: LACTULOSE SYRUP 20 GM/30 ML CUP PO SCH (15:00)
--- NOTE | 2016-11-05 15:00 | HHI.CCPN ---
Subjective Remarks/Hospital Course 10/23: Pneumonia, Respiratory Failure, Severe Sepsis - The patient is a 36-year- old male with a past medical history of cerebral palsy, seizure disorder, mental retardation, previous hospitalization for aspiration pneumonia who presented to [facility] ED after family found him more disoriented than usual and had been vomiting. In the ED the patient was found febrile with temperature of 102.1 rectally, tachycardiac with heart rate in the 130s to 150s and tachypneic. In addition the patient was hypoxemic on non-rebreather and he was subsequently intubated with etomidate, vecuronium and placed on full mechanical ventilation. 10/24: Severe sepsis persists despite broad abx coverage. Urine output improving after aggressive resuscitation. 10/25: GNR in sputum. Continue broad abx coverage pending speciation. Gas exchange improved. 10/26: He remains obstructed with a colon ileus and constipation. Right lung infiltrate persists. Bandemia persists. 10/27: Colon is frighteningly large. Hypokalemia complicating ileus. 10/28: Colon much less distended. Hypokalemia persists despite aggressive replacement. Respiratory failure from pneumonia persists. 10/29: Remains orally intubated on mech ventilation. 10/30: Awake, orally intubated on mechanical ventilation. Hypothermic today. Started on Taryn hugger. Did not tolerate tube feeds overnight. OG tube To suction currently. 10/31: Sedated, easily arousable, orally intubated on mechanical ventilation. GJ tube by IR today 11/01: arousable, still sedated. failing SBT. 11/02: arousable. passed SBT today. still has significant secretions. 11/03: Patient was diuresed yesterday, became hypotensive during the night requiring levophed infusion. Recent was noted have a significant elevation in WBC count. CT scan ordered. 11/04: Patient hypovolemic, central line placed last evening. Levophed continued at 2 mcgs, CVP monitoring initiated. CT scan results pending, repeat cultures obtained. 11/05: Diffuse ileus, no obstruction noted on CT results, calculated actual free phenytoin level 2.18, due to Albumin level 1.4. Increase in laxative stimulants , MiraLAX twice a day senna twice a day, lactulose daily, fleets enema today. Patient continues to be hypokalemic, IV fluids change D5 1 half normal saline with KCl. Scheduled KCl BID. WBC count decreasing from 50->26 today. ID following, Dr. Yates. Objective Vital Signs Date Time Temp Pulse Resp B/P Pulse Ox O2 Delivery O2 Flow Rate FiO2 11/05/16 12:16 100 30 11/05/16 06:00 86 11/05/16 04:00 97.8 20 90/65 Intake and Output 11/04/16 11/04/16 11/04/16 07:59 15:59 23:59 Intake Total 1119 ml 1455 ml 720 ml Output Total 1150 ml 925 ml 1300 ml Balance -31 ml 530 ml -580 ml Result Diagram: 11/05/16 0215 11/05/16 0215 Imaging Last Impressions Chest X-Ray 11/03/16 0000 Signed Impressions: Service Date/Time: Thursday, November 03, 2016 23:14 - CONCLUSION: 1. Right IJ line distal tip in the right atrium. No pneumothorax is visualized. 2. Patchy airspace consolidation remains present throughout the right lung. Mg Darling MD Gastrostomy Tube Change 10/31/16 0000 Signed Impressions: Service Date/Time: Monday, October 31, 2016 15:06 - CONCLUSION: 1. Uncomplicated conversion from gastrostomy to gastrojejunostomy Young Queen MD Abdomen X-Ray 10/28/16 0600 Signed Impressions: Service Date/Time: Friday, October 28, 2016 05:08 - CONCLUSION: Left lower lobe pulmonary consolidation. There are gas-filled dilated bowel loops identified though slightly decreased. Oj Shipley MD CT Angiography 10/23/16 1712 Signed Impressions: Service Date/Time: Sunday, October 23, 2016 19:27 - CONCLUSION: 1. Negative for pulmonary embolus. 2. Diffuse bilateral airspace disease most characteristic of aspiration or pneumonia. 3. Endotracheal tube in satisfactory position. There is some mucoid debris in the airways. 4. Gallstones. Ileus. Scoliosis. Michael Feldman MD Abdomen/Pelvis CT 10/23/16 1625 Signed Impressions: Service Date/Time: Sunday, October 23, 2016 19:27 - CONCLUSION: 1. Multiple gallstones. Diffuse ileus. Scoliosis with bilateral hip dysplasia. Basilar lung disease. See chest CT. Michael Feldman MD Last Impressions Abdomen X-Ray 10/28/16 0600 Signed Impressions: Service Date/Time: Friday, October 28, 2016 05:08 - CONCLUSION: Left lower lobe pulmonary consolidation. There are gas-filled dilated bowel loops identified though slightly decreased. Oj Shipley MD Chest X-Ray 10/26/16 0000 Signed Impressions: Service Date/Time: October 08:29 - CONCLUSION: Stable endotracheal tube which appears slightly high. Stable airspace consolidation within the right hemithorax. Iesha Murray MD CT Angiography 10/23/16 1712 Signed Impressions: Service Date/Time: Sunday, October 23, 2016 19:27 - CONCLUSION: 1. Negative for pulmonary embolus. 2. Diffuse bilateral airspace disease most characteristic of aspiration or pneumonia. 3. Endotracheal tube in satisfactory position. There is some mucoid debris in the airways. 4. Gallstones. Ileus. Scoliosis. Michael Feldman MD Abdomen/Pelvis CT 10/23/16 1625 Signed Impressions: Service Date/Time: Sunday, October 23, 2016 19:27 - CONCLUSION: 1. Multiple gallstones. Diffuse ileus. Scoliosis with bilateral hip dysplasia. Basilar lung disease. See chest CT. Michael Feldman MD Objective Remarks PHYSICAL EXAMINATION GENERAL: Critically ill 36-year-old male non-communicative HEENT: Atraumatic, normocephalic. Orally intubated. NECK: Supple. CARDIOVASCULAR EXAM: Tachycardic. Normal S1 and S2. No murmurs. No JVD. PULMONARY EXAM: Bilateral equal air entry. Diffuse rhonchi persist right. Left clear. Acceptable excursions on ventilator. ABDOMEN: Tenderness on palpation. firm, distended. G-tube in place. BS improved. EXTREMITIES: Warm, well perfused. NEUROLOGIC: awake and looking around. does not follow commands, chronically contractured joints. Cerebral palsy. Opens eyes spontaneously Vascular Central Line Catheter: Yes Date of Insertion: Nov 03, 2016 Line: Central Venous Catheter Side: Right Location: Internal, Jugular (vasoactive medication) A/P Assessment and Plan IMPRESSION: 1. Acute hypoxemic respiratory failure requiring intubation. 2. Lactic acidemia- resolving. 3. Acute kidney injury- resolving 4. Aspiration pneumonia -> Klebsiella 5. Intractable nausea and vomiting. 9. Previous PEG tube placement. 10. History of cerebral palsy. 11. History of developmental delay. 12. History of seizure disorder. 13. History of recurrent aspiration pneumonia. 14. Colon ileus. 15. Hypokalemia. 16. Hypernatremia 17. Hypovolemia Plan: 1. Diprivan infusion if needed for sedation; daily sedation vacation. 2. Monitor neuro status closely. 3. Continue with vent support and maintain sats above 92%. secretions may be a barrier to extubation. he is near extubation, but his RSBI is still near 110. 4. Bronchodilators in the form of DuoNeb q. 6. 5. Vent bundle. Soft restraints. 6. CT pulmonary angiogram -> no PE. 7. TF jevity @ goal of 30. per tube pepcid for GI prophylaxis. 8. free water 250cc q4h per tube for hypernatremia. d/c mivf. spironolactone 25mg po x 1 for intravascular volume overload. 9. Zosyn/Zithromax discontinued on 10/31 and patient switched to IV Unasyn by ID 10. Monitor CBC. 11. SCDs and heparin sq. 12. On laxatives. Fleets enema stopped 10/30 13. Replace K, no narcotics. 14. Reglan 15. Obtain CT abdomen and pelvis-F/u results 16. Albumin given , volume resuscitation Monitor CVP Overall impression: He remains critically ill with hypoxemic respiratory failure , unable to wean from ventilator; continues to fail SBT. Now with significant leukocytosis. Right whole lung pneumonia . Prognosis is guarded. Critical care 31 mins, exclusive of procedures. Physician Lois Marquez MD Nov 05, 2016 15:00
--- NOTE | 2016-11-05 15:16 | HHI.IDPN ---
Note Infectious Disease Note ID coverage. Notes reviewed. On ventilator. Awake and tracks with eyes. Afebrile. WBC lower. Mr. Thakur is a 36-year-old male with past medical history significant for cerebral palsy, seizure disorder, mental retardation, previous history of hospitalization for aspiration pneumonia. Patient now admitted for Aspiration PNA, Sepsis, acute metabolic encephalopathy and Ileus. Antibiotics Unasyn IV Lines Line sites with no e/o infection Past Medical History reviewed Allergies: Coded Allergies: No Known Allergies (Unverified , 06/21/16) Objective Vital Signs Date Time Temp Pulse Resp B/P Pulse Ox O2 Delivery O2 Flow Rate FiO2 11/05/16 12:16 100 30 11/05/16 09:10 100 30 11/05/16 09:09 30 11/05/16 06:00 86 11/05/16 04:16 98 30 11/05/16 04:00 97.8 86 20 90/65 100 11/05/16 04:00 86 11/05/16 04:00 30 11/05/16 02:00 79 11/05/16 01:34 100 30 11/05/16 00:00 80 11/05/16 00:00 30 11/05/16 00:00 97.6 80 16 92/55 98 11/04/16 22:00 104 11/04/16 20:22 98 30 11/04/16 20:00 30 11/04/16 20:00 98.7 104 16 104/69 99 11/04/16 20:00 104 11/04/16 18:13 100 11/04/16 18:00 107 11/04/16 16:21 100 30 11/04/16 16:00 97.5 85 19 107/69 100 11/04/16 16:00 85 11/04/16 16:00 30 11/04/16 11/04/16 11/05/16 15:00 23:00 07:00 Intake Total 1455 ml 720 ml 1400 ml Output Total 925 ml 1300 ml 450 ml Balance 530 ml -580 ml 950 ml Intake Oral 0 ml 0 ml IV Total 1355 ml 250 ml 800 ml Tube Feeding 350 ml 350 ml Other 100 ml 120 ml 250 ml Output Urine Total 925 ml 1300 ml 450 ml Stool Total 0 ml 0 ml # Bowel Movements 1 Laboratory Tests Test 11/04/16 11/04/16 11/05/16 00:00 08:45 02:15 White Blood Count 56.2 TH/MM3 50.1 TH/MM3 26.0 TH/MM3 Red Blood Count 3.95 MIL/MM3 4.02 MIL/MM3 Hemoglobin 8.3 GM/DL 8.2 GM/DL Hematocrit 26.9 % 27.0 % Mean Corpuscular Volume 68.1 FL 67.1 FL Mean Corpuscular Hemoglobin 20.9 PG 20.4 PG Mean Corpuscular Hemoglobin 30.7 % 30.5 % Concent Red Cell Distribution Width 28.2 % 28.0 % Platelet Count 736 TH/MM3 770 TH/MM3 Mean Platelet Volume 8.3 FL 8.3 FL Neutrophils (%) (Auto) 62.8 % Lymphocytes (%) (Auto) 33.8 % Monocytes (%) (Auto) 2.4 % Eosinophils (%) (Auto) 0.3 % Basophils (%) (Auto) 0.7 % Neutrophils # (Auto) 16.3 TH/MM3 Lymphocytes # (Auto) 8.8 TH/MM3 Monocytes # (Auto) 0.6 TH/MM3 Eosinophils # (Auto) 0.1 TH/MM3 Basophils # (Auto) 0.2 TH/MM3 CBC Comment AUTO DIFF Differential Total Cells 100 Counted Neutrophils % (Manual) 65 % Band Neutrophils % 25 % Lymphocytes % 9 % Eosinophils % 1 % Neutrophils # (Manual) 23.4 TH/MM3 Differential Comment FINAL DIFF MANUAL Toxic Vacuolation PRESENT Dohle Bodies PRESENT Platelet Estimate HIGH Platelet Morphology Comment NORMAL Target Cells 2+ Acanthocytes 1+ Laboratory Tests Test 11/04/16 11/04/16 11/05/16 00:03 08:45 02:15 Lactic Acid Level 1.9 mmol/L Sodium Level 145 MEQ/L 147 MEQ/L Potassium Level 2.1 MEQ/L 2.4 MEQ/L Chloride Level 114 MEQ/L 114 MEQ/L Carbon Dioxide Level 23.7 MEQ/L 23.5 MEQ/L Anion Gap 7 MEQ/L 10 MEQ/L Blood Urea Nitrogen 4 MG/DL 2 MG/DL Creatinine 0.58 MG/DL 0.49 MG/DL Estimat Glomerular Filtration 194 ML/MIN 236 ML/MIN Rate Random Glucose 87 MG/DL 87 MG/DL Calcium Level 6.5 MG/DL 7.0 MG/DL Protein Corrected Calcium 7.0 MG/DL 7.8 MG/DL Total Protein 6.0 GM/DL 5.5 GM/DL Phosphorus Level 2.1 MG/DL Magnesium Level 1.3 MG/DL Microbiology Date/Time Procedure Status Source Growth 11/04/16 00:15 Aerobic Blood Culture - Preliminary Resulted Blood Peripheral NO GROWTH IN 1 DAY 11/04/16 00:15 Anaerobic Blood Culture - Preliminary Resulted Blood Peripheral NO GROWTH IN 1 DAY Imaging Chest X-Ray 11/05/16 0600 Signed Impressions: Service Date/Time: Saturday, November 05, 2016 06:19 - CONCLUSION: Stable bilateral airspace consolidation, right greater than left. Mg Darling MD Chest X-Ray 11/03/16 0000 Signed Impressions: Service Date/Time: Thursday, November 03, 2016 23:14 - CONCLUSION: 1. Right IJ line distal tip in the right atrium. No pneumothorax is visualized. 2. Patchy airspace consolidation remains present throughout the right lung. Mg Darling MD Chest CT 11/03/16 0000 Signed Impressions: Service Date/Time: Friday, November 04, 2016 17:34 - CONCLUSION: Compared with October 23 there is new dense consolidation left lower lobe most characteristic of pneumonia or aspiration. Improved airspace disease on the right since prior exam. New small bilateral pleural effusions. Michael Feldman MD Abdomen/Pelvis CT 11/03/16 0000 Signed Impressions: Service Date/Time: Friday, November 04, 2016 17:38 - CONCLUSION: 1. Feeding jejunostomy now present in upper abdomen. Diffuse ileus. No evidence for obstruction. Multiple calcified gallstones. 2. Mild mural thickening of the colon especially distally which may indicate mild colitis. Michael Feldman MD Chest X-Ray 11/05/16 0600 Signed Impressions: Service Date/Time: Saturday, November 05, 2016 06:19 - CONCLUSION: Stable bilateral airspace consolidation, right greater than left. Mg Darling MD Chest X-Ray 11/03/16 0000 Signed Impressions: Service Date/Time: Thursday, November 03, 2016 23:14 - CONCLUSION: 1. Right IJ line distal tip in the right atrium. No pneumothorax is visualized. 2. Patchy airspace consolidation remains present throughout the right lung. Mg Darling MD Abdomen X-Ray 10/27/16 0600 Signed Impressions: Service Date/Time: Thursday, October 27, 2016 05:56 - CONCLUSION: Probable ileus pattern. Close clinical and radiographic followup recommended. Oj Shipley MD Chest X-Ray 10/26/16 0000 Signed Impressions: Service Date/Time: October 08:29 - CONCLUSION: Stable endotracheal tube which appears slightly high. Stable airspace consolidation within the right hemithorax. Iesha Murray MD CT Angiography 10/23/16 1712 Signed Impressions: Service Date/Time: Sunday, October 23, 2016 19:27 - CONCLUSION: 1. Negative for pulmonary embolus. 2. Diffuse bilateral airspace disease most characteristic of aspiration or pneumonia. 3. Endotracheal tube in satisfactory position. There is some mucoid debris in the airways. 4. Gallstones. Ileus. Scoliosis. Michael Feldman MD Abdomen/Pelvis CT 10/23/16 1625 Signed Impressions: Service Date/Time: Sunday, October 23, 2016 19:27 - CONCLUSION: 1. Multiple gallstones. Diffuse ileus. Scoliosis with bilateral hip dysplasia. Basilar lung disease. See chest CT. Michael Feldman MD Physical Exam GENERAL: Patient is in no acute distress. On ventilator. Awake. HEENT: EOMI, No icterus. NECK: Supple. LUNGS: Decreased breath sounds. CARDIAC: Regular rate and rhythm ABDOMEN: Soft, non tender. No masses. EXTREMITIES: No CCE. Contracture of extremities. SKIN: No rash. Assessment & Plan Remarks Septic Shock new. Pneumonia present on admission: Aspiration pneumonia appears to be most likely. Although patient lives in the community and would like to rule out community- acquired pneumonia as well as atypical pneumonia. Staph auricularis bacteremia likely contamination Acute metabolic encephalopathy: At baseline patient has cerebral palsy with developmental delay but reportedly there has been a change from baseline. High-grade leukocytosis: Likely Leukemoid reaction, SIRS from chemical pneumonitis as well as aspiration related bacterial pneumonia. 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 History of Brina fundoplication as well as exploratory laparotomy for small bowel obstruction. Patient is at risk for recurrent aspiration pneumonia due to his history of Brina fundoplication, developmental delay, seizure disorder, scoliosis, distorted GI as well as skeletal anatomy. Recommendations: Continue Zosyn. Continue Vancomycin IV Continue Micafungin (possible intra abdominal abscess) Monitor cultures. Monitor WBC. Mendoza Armando MD Nov 05, 2016 15:16
[2016-11-05] MEDS: D5-1/2 NS + KCL 20 MEQ INJ 1,000 ML IV SCH ×2 (15:56→23:39)
[2016-11-05] MEDS: POLYETHYLENE GLYCOL 17 GM PKG TUBE SCH (21:00)
[2016-11-05 22:21] LABS: C. DIFF EPI 027 PRESUMPTIVE NEGATIVE (NEGATIVE); C. DIFF TOXIN PCR NEGATIVE (NEGATIVE)
[2016-11-05] MEDS: POTASSIUM CHLOR 40 MEQ PREMIX 100 ML IV PRN (23:37)
[2016-11-05] MEDS: POTASSIUM CL 40 MEQ/30 ML LIQ UDC PO/TUBE PRN (23:37)
[2016-11-06] VITALS (18 sets, daily range): BP systolic 86–109; BP diastolic 54–67; PULSE 83–120; RESP 18–22; TEMP 97.1–98.4; O2SAT 96–100
[2016-11-06] MEDS: VANCOMYCIN INJ 750 MG in SODIUM CHLOR 0.9% 250 ML INJ 250 ML IV SCH ×2 (02:00→15:13)
[2016-11-06 03:54] LABS: HEMATOCRIT 31.5 % (39.0-51.0); MEAN CELL VOLUME 68.6 FL (80.0-100.0); MEAN CORPUSCULAR HEMOGLOBIN 20.8 PG (27.0-34.0); MEAN CORPUSCULAR HGB CONC 30.3 % (32.0-36.0); PLATELET COUNT 778 TH/MM3 (150-450); RED BLOOD COUNT 4.58 MIL/MM3 (4.50-5.90); RED CELL DISTRIBUTION WIDTH 28.5 % (11.6-17.2); WHITE BLOOD COUNT 15.7 TH/MM3 (4.0-11.0)
[2016-11-06 03:57] LABS: REVIEW FLAG FINAL
[2016-11-06] MEDS: PIPERACIL-TAZO 4.5 GM PREMIX 100 ML IV SCH ×3 (04:00→21:03)
[2016-11-06] MEDS: CHLORHEXIDINE GLUCONATE 2 % 1 PACK (2 CLOTHS) TOP SCH (04:00)
[2016-11-06 04:04] LABS: BICARBONATE 20.5 MEQ/L (21.0-32.0); POTASSIUM 4.1 MEQ/L (3.5-5.1)
[2016-11-06 04:26] LABS: CALCIUM-PROTEIN CORRECTED 7.6 MG/DL (8.5-10.1)
[2016-11-06] MEDS: OXYBUTYNIN CHLORIDE 5 MG TAB PO SCH ×3 (06:00→21:03)
[2016-11-06] MEDS: TOPIRAMATE 100 MG TAB GT SCH ×2 (08:10→21:03)
[2016-11-06] MEDS: HEPARIN SODIUM - SQ 10,000 UNITS/ML VIAL SQ SCH ×3 (08:10→15:01)
[2016-11-06] MEDS: FLUDROCORTISONE ACETATE 0.1 MG TAB PO SCH (08:10)
[2016-11-06] MEDS: FAMOTIDINE 20 MG TAB NG SCH ×2 (08:10→21:03)
[2016-11-06] MEDS: PHENYTOIN SUSP 100 MG/4 ML CUP PEG SCH ×2 (08:11→21:03)
[2016-11-06] MEDS: LACTULOSE SYRUP 20 GM/30 ML CUP PO SCH (08:11)
[2016-11-06] MEDS: SENNOSIDES SYRUP 8.8 MG/5 ML CUP PO SCH ×2 (08:12→21:03)
[2016-11-06] MEDS: POLYETHYLENE GLYCOL 17 GM PKG TUBE SCH (08:12)
--- NOTE | 2016-11-06 09:32 | HHI.CCPN ---
Subjective Remarks/Hospital Course 10/23: Pneumonia, Respiratory Failure, Severe Sepsis - The patient is a 36-year- old male with a past medical history of cerebral palsy, seizure disorder, mental retardation, previous hospitalization for aspiration pneumonia who presented to [facility] ED after family found him more disoriented than usual and had been vomiting. In the ED the patient was found febrile with temperature of 102.1 rectally, tachycardiac with heart rate in the 130s to 150s and tachypneic. In addition the patient was hypoxemic on non-rebreather and he was subsequently intubated with etomidate, vecuronium and placed on full mechanical ventilation. 10/24: Severe sepsis persists despite broad abx coverage. Urine output improving after aggressive resuscitation. 10/25: GNR in sputum. Continue broad abx coverage pending speciation. Gas exchange improved. 10/26: He remains obstructed with a colon ileus and constipation. Right lung infiltrate persists. Bandemia persists. 10/27: Colon is frighteningly large. Hypokalemia complicating ileus. 10/28: Colon much less distended. Hypokalemia persists despite aggressive replacement. Respiratory failure from pneumonia persists. 10/29: Remains orally intubated on mech ventilation. 10/30: Awake, orally intubated on mechanical ventilation. Hypothermic today. Started on Taryn hugger. Did not tolerate tube feeds overnight. OG tube To suction currently. 10/31: Sedated, easily arousable, orally intubated on mechanical ventilation. GJ tube by IR today 11/01: arousable, still sedated. failing SBT. 11/02: arousable. passed SBT today. still has significant secretions. 11/03: Patient was diuresed yesterday, became hypotensive during the night requiring levophed infusion. Recent was noted have a significant elevation in WBC count. CT scan ordered. 11/04: Patient hypovolemic, central line placed last evening. Levophed continued at 2 mcgs, CVP monitoring initiated. CT scan results pending, repeat cultures obtained. 11/05: Diffuse ileus, no obstruction noted on CT results, calculated actual free phenytoin level 2.18, due to Albumin level 1.4. Increase in laxative stimulants , MiraLAX twice a day senna twice a day, lactulose daily, fleets enema today. Patient continues to be hypokalemic, IV fluids change D5 1/2 normal saline with KCl. Scheduled KCl BID. WBC count decreasing from 50->26 today. ID following, Dr. Yates. 11/06 Multiple bowel movements overnight. C. difficile antigen obtain negative. Normotensive throughout the night. Specialty bed ordered to prevent skin ulcerations. Objective Vital Signs Date Time Temp Pulse Resp B/P Pulse Ox O2 Delivery O2 Flow Rate FiO2 11/06/16 08:24 99 30 11/06/16 06:00 92 11/06/16 04:00 98.2 18 90/54 Intake and Output 11/05/16 11/05/16 11/06/16 08:00 16:00 00:00 Intake Total 1400 ml 1399 ml 832 ml Output Total 450 ml 1301 ml 602 ml Balance 950 ml 98 ml 230 ml Result Diagram: 11/06/16 0328 11/06/16 0328 Imaging Last Impressions Chest X-Ray 11/03/16 0000 Signed Impressions: Service Date/Time: Thursday, November 03, 2016 23:14 - CONCLUSION: 1. Right IJ line distal tip in the right atrium. No pneumothorax is visualized. 2. Patchy airspace consolidation remains present throughout the right lung. Mg Darling MD Gastrostomy Tube Change 10/31/16 0000 Signed Impressions: Service Date/Time: Monday, October 31, 2016 15:06 - CONCLUSION: 1. Uncomplicated conversion from gastrostomy to gastrojejunostomy Young Queen MD Abdomen X-Ray 10/28/16 0600 Signed Impressions: Service Date/Time: Friday, October 28, 2016 05:08 - CONCLUSION: Left lower lobe pulmonary consolidation. There are gas-filled dilated bowel loops identified though slightly decreased. Oj Shipley MD CT Angiography 10/23/16 1712 Signed Impressions: Service Date/Time: Sunday, October 23, 2016 19:27 - CONCLUSION: 1. Negative for pulmonary embolus. 2. Diffuse bilateral airspace disease most characteristic of aspiration or pneumonia. 3. Endotracheal tube in satisfactory position. There is some mucoid debris in the airways. 4. Gallstones. Ileus. Scoliosis. Michael Feldman MD Abdomen/Pelvis CT 10/23/16 1625 Signed Impressions: Service Date/Time: Sunday, October 23, 2016 19:27 - CONCLUSION: 1. Multiple gallstones. Diffuse ileus. Scoliosis with bilateral hip dysplasia. Basilar lung disease. See chest CT. Michael Feldman MD Last Impressions Abdomen X-Ray 10/28/16 0600 Signed Impressions: Service Date/Time: Friday, October 28, 2016 05:08 - CONCLUSION: Left lower lobe pulmonary consolidation. There are gas-filled dilated bowel loops identified though slightly decreased. Oj Shipley MD Chest X-Ray 10/26/16 0000 Signed Impressions: Service Date/Time: October 08:29 - CONCLUSION: Stable endotracheal tube which appears slightly high. Stable airspace consolidation within the right hemithorax. Iesha Murray MD CT Angiography 10/23/16 1712 Signed Impressions: Service Date/Time: Sunday, October 23, 2016 19:27 - CONCLUSION: 1. Negative for pulmonary embolus. 2. Diffuse bilateral airspace disease most characteristic of aspiration or pneumonia. 3. Endotracheal tube in satisfactory position. There is some mucoid debris in the airways. 4. Gallstones. Ileus. Scoliosis. Michael Feldman MD Abdomen/Pelvis CT 10/23/16 1625 Signed Impressions: Service Date/Time: Sunday, October 23, 2016 19:27 - CONCLUSION: 1. Multiple gallstones. Diffuse ileus. Scoliosis with bilateral hip dysplasia. Basilar lung disease. See chest CT. Michael Feldman MD Objective Remarks PHYSICAL EXAMINATION GENERAL: Critically ill 36-year-old male non-communicative HEENT: Atraumatic, normocephalic. Orally intubated. NECK: Supple. CARDIOVASCULAR EXAM: Tachycardic. Normal S1 and S2. No murmurs. No JVD. PULMONARY EXAM: Bilateral equal air entry. Diffuse rhonchi persist right. Left clear. Acceptable excursions on ventilator. ABDOMEN: Tenderness on palpation. firm, distended. G-tube in place. BS improved. EXTREMITIES: Warm, well perfused. NEUROLOGIC: awake and looking around. does not follow commands, chronically contractured joints. Cerebral palsy. Opens eyes spontaneously Vascular Central Line Catheter: Yes (CVP monitoring) Date of Insertion: Nov 03, 2016 Line: Central Venous Catheter Side: Right Location: Internal, Jugular (vasoactive medication) A/P Assessment and Plan IMPRESSION: 1. Acute hypoxemic respiratory failure requiring intubation. 2. Lactic acidemia- resolving. 3. Acute kidney injury- resolving 4. Aspiration pneumonia -> Klebsiella 5. Intractable nausea and vomiting. 9. Previous PEG tube placement. 10. History of cerebral palsy. 11. History of developmental delay. 12. History of seizure disorder. 13. History of recurrent aspiration pneumonia. 14. Colon ileus. 15. Hypokalemia. 16. Hypernatremia 17. Hypovolemia Plan: 1. Diprivan infusion if needed for sedation; daily sedation vacation. 2. Monitor neuro status closely. 3. Continue with vent support and maintain sats above 92%. secretions may be a barrier to extubation. he is near extubation, but his RSBI is still near 110. 4. Bronchodilators in the form of DuoNeb q. 6. 5. Vent bundle. Soft restraints. 6. CT pulmonary angiogram -> no PE. 7. TF jevity @ goal of 30. per tube pepcid for GI prophylaxis. 8. free water 250cc q4h per tube for hypernatremia. d/c mivf. spironolactone 25mg po x 1 for intravascular volume overload. 9. Zosyn/Zithromax discontinued on 10/31 and patient switched to IV Unasyn by ID 10. Monitor CBC. 11. SCDs and heparin sq. 12. On laxatives. Fleets enema stopped 10/30 13. Replace 14. Reglan 15. Obtain CT abdomen and pelvis-F/U results 16. Albumin given , volume resuscitation Monitor CVP 17. Avoid narcotics Overall impression: He remains critically ill with hypoxemic respiratory failure , unable to wean from ventilator; continues to fail SBT. Now with significant leukocytosis. Right whole lung pneumonia . Prognosis is guarded. Critical care 33 mins, exclusive of procedures. Physician Lois Marquez MD Nov 06, 2016 09:31
[2016-11-06] MEDS ORDERED: CALCIUM GLUCONATE INJ 2 GM in DEXTROSE 5% IN WATER 100ML INJ 100 ML IV ONE ×2 (10:00)
--- NOTE | 2016-11-06 10:35 | HHI.IDPN ---
Subjective Subjective Remarks Mr. Thakur is a 36-year-old male with past medical history significant for cerebral palsy, seizure disorder, mental retardation, previous history of hospitalization for aspiration pneumonia. Patient now admitted for Aspiration PNA, Sepsis, acute metabolic encephalopathy and Ileus. Notes reviewed D/W RN More alert today per RN. No rash UO good. Tolerating tube feeds. Not on pressors. No diarrhea. Antibiotics Zosyn IV Vanco IV Lines Line sites with no e/o infection Past Medical History reviewed Allergies: Coded Allergies: No Known Allergies (Unverified , 06/21/16) Objective . Vital Signs Date Time Temp Pulse Resp B/P Pulse Ox O2 Delivery O2 Flow Rate FiO2 11/06/16 08:24 99 30 11/06/16 08:24 30 11/06/16 06:00 92 11/06/16 04:15 99 30 11/06/16 04:00 30 11/06/16 04:00 93 11/06/16 04:00 98.2 93 18 90/54 99 11/06/16 02:00 88 11/06/16 01:15 98 30 11/06/16 00:00 85 11/06/16 00:00 98.0 85 19 86/58 100 11/06/16 00:00 30 11/05/16 22:00 92 11/05/16 21:05 100 30 11/05/16 20:00 98.0 88 24 104/62 100 11/05/16 20:00 88 11/05/16 20:00 30 11/05/16 18:00 108 11/05/16 17:14 100 30 11/05/16 16:00 30 11/05/16 16:00 99.2 86 26 95/66 100 11/05/16 16:00 86 11/05/16 14:00 80 11/05/16 12:16 100 30 11/05/16 12:00 99.0 82 26 95/66 100 11/05/16 12:00 82 11/05/16 12:00 30 11/05/16 11/05/16 11/06/16 15:00 23:00 07:00 Intake Total 1399 ml 832 ml 1180 ml Output Total 1301 ml 602 ml 1450 ml Balance 98 ml 230 ml -270 ml Intake Oral 0 ml IV Total 800 ml 592 ml 916 ml Tube Feeding 239 ml 140 ml 214 ml Tube Irrigant 60 ml Other 300 ml 100 ml 50 ml Output Urine Total 1300 ml 600 ml 1450 ml Stool Total 1 ml 2 ml 0 ml . Laboratory Tests Test 11/05/16 11/06/16 02:15 03:28 White Blood Count 26.0 TH/MM3 15.7 TH/MM3 Red Blood Count 4.02 MIL/MM3 4.58 MIL/MM3 Hemoglobin 8.2 GM/DL 9.5 GM/DL Hematocrit 27.0 % 31.5 % Mean Corpuscular Volume 67.1 FL 68.6 FL Mean Corpuscular Hemoglobin 20.4 PG 20.8 PG Mean Corpuscular Hemoglobin 30.5 % 30.3 % Concent Red Cell Distribution Width 28.0 % 28.5 % Platelet Count 770 TH/MM3 778 TH/MM3 Mean Platelet Volume 8.3 FL 9.0 FL Neutrophils (%) (Auto) 62.8 % Lymphocytes (%) (Auto) 33.8 % Monocytes (%) (Auto) 2.4 % Eosinophils (%) (Auto) 0.3 % Basophils (%) (Auto) 0.7 % Neutrophils # (Auto) 16.3 TH/MM3 Lymphocytes # (Auto) 8.8 TH/MM3 Monocytes # (Auto) 0.6 TH/MM3 Eosinophils # (Auto) 0.1 TH/MM3 Basophils # (Auto) 0.2 TH/MM3 CBC Comment AUTO DIFF Differential Total Cells 100 Counted Neutrophils % (Manual) 65 % Band Neutrophils % 25 % Lymphocytes % 9 % Eosinophils % 1 % Neutrophils # (Manual) 23.4 TH/MM3 Differential Comment FINAL DIFF MANUAL Toxic Vacuolation PRESENT Dohle Bodies PRESENT Platelet Estimate HIGH Platelet Morphology Comment NORMAL Target Cells 2+ Acanthocytes 1+ Laboratory Tests Test 11/05/16 11/05/16 11/06/16 02:15 20:45 03:28 Sodium Level 147 MEQ/L 145 MEQ/L Potassium Level 2.4 MEQ/L 2.8 MEQ/L 4.1 MEQ/L Chloride Level 114 MEQ/L 117 MEQ/L Carbon Dioxide Level 23.5 MEQ/L 20.5 MEQ/L Anion Gap 10 MEQ/L 8 MEQ/L Blood Urea Nitrogen 2 MG/DL 2 MG/DL Creatinine 0.49 MG/DL 0.43 MG/DL Estimat Glomerular Filtration 236 ML/MIN 275 ML/MIN Rate Random Glucose 87 MG/DL 94 MG/DL Calcium Level 7.0 MG/DL 7.0 MG/DL Protein Corrected Calcium 7.8 MG/DL 7.6 MG/DL Phosphorus Level 2.1 MG/DL Magnesium Level 1.3 MG/DL Total Protein 5.5 GM/DL 6.0 GM/DL Microbiology Date/Time Procedure Status Source Growth 11/04/16 00:15 Aerobic Blood Culture - Preliminary Resulted Blood Peripheral NO GROWTH IN 1 DAY 11/04/16 00:15 Anaerobic Blood Culture - Preliminary Resulted Blood Peripheral NO GROWTH IN 1 DAY 11/06/16 03:28 Aerobic Blood Culture Received Blood Peripheral Pending 11/06/16 03:28 Anaerobic Blood Culture Received Blood Peripheral Pending Imaging Last Impressions Abdomen X-Ray 10/27/16 0600 Signed Impressions: Service Date/Time: Thursday, October 27, 2016 05:56 - CONCLUSION: Probable ileus pattern. Close clinical and radiographic followup recommended. Oj Shipley MD Chest X-Ray 10/26/16 0000 Signed Impressions: Service Date/Time: October 08:29 - CONCLUSION: Stable endotracheal tube which appears slightly high. Stable airspace consolidation within the right hemithorax. Iesha Murray MD CT Angiography 10/23/16 1712 Signed Impressions: Service Date/Time: Sunday, October 23, 2016 19:27 - CONCLUSION: 1. Negative for pulmonary embolus. 2. Diffuse bilateral airspace disease most characteristic of aspiration or pneumonia. 3. Endotracheal tube in satisfactory position. There is some mucoid debris in the airways. 4. Gallstones. Ileus. Scoliosis. Michael Feldman MD Abdomen/Pelvis CT 10/23/16 1625 Signed Impressions: Service Date/Time: Sunday, October 23, 2016 19:27 - CONCLUSION: 1. Multiple gallstones. Diffuse ileus. Scoliosis with bilateral hip dysplasia. Basilar lung disease. See chest CT. Michael Feldman MD Physical Exam GENERAL: Lethargic on vent. SKIN: No rashes. Warm and dry HEAD: Atraumatic. No temporal or scalp tenderness. EYES: Pupils equal round and reactive. No scleral icterus. No injection or drainage. ENT: Nose without bleeding, purulent drainage or septal hematoma. ET in mouth NECK: Trachea midline. Supple, nontender, no meningeal signs. Scar in neck from previous trach CARDIOVASCULAR: HS audible. RESPIRATORY: Has scattered rhonchi GASTROINTESTINAL: Abdomen soft, distended, non tender, no rebound or rigidity. GJ tube site ok. MUSCULOSKELETAL: Extremities with contractures and deformities. No joint effusion, or edema noted. NEUROLOGICAL: Lethargic. Opens eyes when abdomen examined. Extremities spastic and contracted Psych: could not be assessed. IV line sites with no e/o infection. Assessment & Plan Remarks Septic Shock new. Pneumonia present on admission: Aspiration pneumonia appears to be most likely. Although patient lives in the community and would like to rule out community- acquired pneumonia as well as atypical pneumonia. Staph auricularis bacteremia likely contamination Acute metabolic encephalopathy: At baseline patient has cerebral palsy with developmental delay but reportedly there has been a change from baseline. High-grade leukocytosis: Likely Leukemoid reaction, SIRS from chemical pneumonitis as well as aspiration related bacterial pneumonia. 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 History of Brina fundoplication as well as exploratory laparotomy for small bowel obstruction. Patient is at risk for recurrent aspiration pneumonia due to his history of Brina fundoplication, developmental delay, seizure disorder, scoliosis, distorted GI as well as skeletal anatomy. Recommendations: Check cuadra cultures Continue Zosyn IV Continue Vanco IV Repeat Sputum culture: if no MRSA will DC vanco IV. DC IV Micafungin (possible intra abdominal abscess) D/W RN Concern the repeated sepsis episodes are from repeated aspiration events. Janet Yates MD Nov 06, 2016 10:14
[2016-11-06] MEDS: D5-1/2 NS + KCL 20 MEQ INJ 1,000 ML IV SCH ×2 (15:02→21:03)
[2016-11-07] VITALS (18 sets, daily range): BP systolic 92–100; BP diastolic 52–66; PULSE 63–103; RESP 12–23; TEMP 97.9–98.7; O2SAT 96–100
[2016-11-07] MEDS: HEPARIN SODIUM - SQ 10,000 UNITS/ML VIAL SQ SCH ×4 (00:19→23:56)
[2016-11-07] MEDS: VANCOMYCIN INJ 750 MG in SODIUM CHLOR 0.9% 250 ML INJ 250 ML IV SCH ×2 (01:52→13:50)
[2016-11-07] MEDS: PIPERACIL-TAZO 4.5 GM PREMIX 100 ML IV SCH ×3 (03:53→20:30)
[2016-11-07] MEDS: CHLORHEXIDINE GLUCONATE 2 % 1 PACK (2 CLOTHS) TOP SCH (03:53)
[2016-11-07] MEDS: OXYBUTYNIN CHLORIDE 5 MG TAB PO SCH ×3 (05:17→21:46)
[2016-11-07 05:28] LABS: HEMATOCRIT 26.5 % (39.0-51.0); MEAN CELL VOLUME 68.9 FL (80.0-100.0); MEAN CORPUSCULAR HEMOGLOBIN 20.7 PG (27.0-34.0); PLATELET COUNT 771 TH/MM3 (150-450); RED BLOOD COUNT 3.84 MIL/MM3 (4.50-5.90); RED CELL DISTRIBUTION WIDTH 27.9 % (11.6-17.2); WHITE BLOOD COUNT 13.3 TH/MM3 (4.0-11.0)
[2016-11-07 05:35] LABS: REVIEW FLAG FINAL
--- NOTE | 2016-11-07 05:49 | RADRPT ---
EXAM DATE/TIME: 11/07/2016 04:57 [facility] COMPARISON: CHEST SINGLE AP, November 05, 2016, 6:19. INDICATIONS : Shortness of breath. MEDICAL HISTORY : Cardiovascular disease. Cerebral palsy. SURGICAL HISTORY : None. ENCOUNTER: Subsequent ACUITY: 2 weeks PAIN SCORE: Non-responsive. LOCATION: Bilateral chest FINDINGS: Cardiomegaly and bilateral airspace disease. Endotracheal tube and right jugular line again noted. De xtrorotoscoliosis is seen and the patient is rotated to the left. CONCLUSION: No significant change has occurred. Oj Shipley MD on November 07, 2016 at 5:48 Board Certified Radiologist. This report was verified electronically.
[2016-11-07 05:54] LABS: BICARBONATE 22.5 MEQ/L (21.0-32.0); MAGNESIUM 1.9 MG/DL (1.5-2.5); POTASSIUM 3.3 MEQ/L (3.5-5.1)
[2016-11-07 06:08] LABS: CALCIUM-PROTEIN CORRECTED 7.8 MG/DL (8.5-10.1)
[2016-11-07] MEDS: FLUDROCORTISONE ACETATE 0.1 MG TAB PO SCH (08:34)
[2016-11-07] MEDS: FAMOTIDINE 20 MG TAB NG SCH ×2 (08:34→20:30)
[2016-11-07] MEDS: SENNOSIDES SYRUP 8.8 MG/5 ML CUP PO SCH ×2 (08:34→20:29)
[2016-11-07] MEDS: TOPIRAMATE 100 MG TAB GT SCH ×2 (08:34→20:29)
[2016-11-07] MEDS: PHENYTOIN SUSP 100 MG/4 ML CUP PEG SCH ×2 (08:34→20:29)
[2016-11-07] MEDS: D5-1/2 NS + KCL 20 MEQ INJ 1,000 ML IV SCH (08:34)
--- NOTE | 2016-11-07 10:11 | HHI.CCPN ---
Subjective Remarks/Hospital Course 10/23: Pneumonia, Respiratory Failure, Severe Sepsis - The patient is a 36-year- old male with a past medical history of cerebral palsy, seizure disorder, mental retardation, previous hospitalization for aspiration pneumonia who presented to [facility] ED after family found him more disoriented than usual and had been vomiting. In the ED the patient was found febrile with temperature of 102.1 rectally, tachycardiac with heart rate in the 130s to 150s and tachypneic. In addition the patient was hypoxemic on non-rebreather and he was subsequently intubated with etomidate, vecuronium and placed on full mechanical ventilation. 10/24: Severe sepsis persists despite broad abx coverage. Urine output improving after aggressive resuscitation. 10/25: GNR in sputum. Continue broad abx coverage pending speciation. Gas exchange improved. 10/26: He remains obstructed with a colon ileus and constipation. Right lung infiltrate persists. Bandemia persists. 10/27: Colon is frighteningly large. Hypokalemia complicating ileus. 10/28: Colon much less distended. Hypokalemia persists despite aggressive replacement. Respiratory failure from pneumonia persists. 10/29: Remains orally intubated on mech ventilation. 10/30: Awake, orally intubated on mechanical ventilation. Hypothermic today. Started on Taryn hugger. Did not tolerate tube feeds overnight. OG tube To suction currently. 10/31: Sedated, easily arousable, orally intubated on mechanical ventilation. GJ tube by IR today 11/01: arousable, still sedated. failing SBT. 11/02: arousable. passed SBT today. still has significant secretions. 11/03: Patient was diuresed yesterday, became hypotensive during the night requiring levophed infusion. Recent was noted have a significant elevation in WBC count. CT scan ordered. 11/04: Patient hypovolemic, central line placed last evening. Levophed continued at 2 mcgs, CVP monitoring initiated. CT scan results pending, repeat cultures obtained. 11/05: Diffuse ileus, no obstruction noted on CT results, calculated actual free phenytoin level 2.18, due to Albumin level 1.4. Increase in laxative stimulants , MiraLAX twice a day senna twice a day, lactulose daily, fleets enema today. Patient continues to be hypokalemic, IV fluids change D5 1/2 normal saline with KCl. Scheduled KCl BID. WBC count decreasing from 50->26 today. ID following, Dr. Yates. 11/06 Multiple bowel movements overnight. C. difficile antigen obtain negative. Normotensive throughout the night. Specialty bed ordered to prevent skin ulcerations. 11/07 The patient continues to have copious secretions. CPAP trials lasted for hours yesterday. Objective Vital Signs Date Time Temp Pulse Resp B/P Pulse Ox O2 Delivery O2 Flow Rate FiO2 11/07/16 09:53 100 30 11/07/16 08:04 95 11/07/16 08:00 98.1 17 94/52 Intake and Output 11/06/16 11/06/16 11/07/16 08:00 16:00 00:00 Intake Total 1180 ml 1372 ml 1289 ml Output Total 1450 ml 1002 ml 1300 ml Balance -270 ml 370 ml -11 ml Result Diagram: 11/07/16 0445 11/07/16 0445 Imaging Last Impressions Chest X-Ray 11/03/16 0000 Signed Impressions: Service Date/Time: Thursday, November 03, 2016 23:14 - CONCLUSION: 1. Right IJ line distal tip in the right atrium. No pneumothorax is visualized. 2. Patchy airspace consolidation remains present throughout the right lung. Mg Darling MD Gastrostomy Tube Change 10/31/16 0000 Signed Impressions: Service Date/Time: Monday, October 31, 2016 15:06 - CONCLUSION: 1. Uncomplicated conversion from gastrostomy to gastrojejunostomy Young Queen MD Abdomen X-Ray 10/28/16 0600 Signed Impressions: Service Date/Time: Friday, October 28, 2016 05:08 - CONCLUSION: Left lower lobe pulmonary consolidation. There are gas-filled dilated bowel loops identified though slightly decreased. Oj Shipley MD CT Angiography 10/23/16 1712 Signed Impressions: Service Date/Time: Sunday, October 23, 2016 19:27 - CONCLUSION: 1. Negative for pulmonary embolus. 2. Diffuse bilateral airspace disease most characteristic of aspiration or pneumonia. 3. Endotracheal tube in satisfactory position. There is some mucoid debris in the airways. 4. Gallstones. Ileus. Scoliosis. Michael Feldman MD Abdomen/Pelvis CT 10/23/16 1625 Signed Impressions: Service Date/Time: Sunday, October 23, 2016 19:27 - CONCLUSION: 1. Multiple gallstones. Diffuse ileus. Scoliosis with bilateral hip dysplasia. Basilar lung disease. See chest CT. Michael Feldman MD Last Impressions Abdomen X-Ray 10/28/16 0600 Signed Impressions: Service Date/Time: Friday, October 28, 2016 05:08 - CONCLUSION: Left lower lobe pulmonary consolidation. There are gas-filled dilated bowel loops identified though slightly decreased. Oj Shipley MD Chest X-Ray 10/26/16 0000 Signed Impressions: Service Date/Time: October 08:29 - CONCLUSION: Stable endotracheal tube which appears slightly high. Stable airspace consolidation within the right hemithorax. Iesha Murray MD CT Angiography 10/23/16 1712 Signed Impressions: Service Date/Time: Sunday, October 23, 2016 19:27 - CONCLUSION: 1. Negative for pulmonary embolus. 2. Diffuse bilateral airspace disease most characteristic of aspiration or pneumonia. 3. Endotracheal tube in satisfactory position. There is some mucoid debris in the airways. 4. Gallstones. Ileus. Scoliosis. Michael Feldman MD Abdomen/Pelvis CT 10/23/16 1625 Signed Impressions: Service Date/Time: Sunday, October 23, 2016 19:27 - CONCLUSION: 1. Multiple gallstones. Diffuse ileus. Scoliosis with bilateral hip dysplasia. Basilar lung disease. See chest CT. Michael Feldman MD Objective Remarks PHYSICAL EXAMINATION GENERAL: Critically ill 36-year-old male non-communicative HEENT: Atraumatic, normocephalic. Orally intubated. NECK: Supple. CARDIOVASCULAR EXAM: Tachycardic. Normal S1 and S2. No murmurs. No JVD. PULMONARY EXAM: Bilateral equal air entry. Diffuse rhonchi persist right. Left clear. Acceptable excursions on ventilator. ABDOMEN: Tenderness on palpation. firm, distended. G-tube in place. BS improved. EXTREMITIES: Warm, well perfused. NEUROLOGIC: awake and looking around. does not follow commands, chronically contractured joints. Cerebral palsy. Opens eyes spontaneously Vascular Central Line Catheter: Yes Date of Insertion: Nov 03, 2016 Line: Central Venous Catheter Side: Right Location: Internal, Jugular (vasoactive medication) A/P Assessment and Plan IMPRESSION: 1. Acute hypoxemic respiratory failure requiring intubation. 2. Lactic acidemia- resolving. 3. Acute kidney injury- resolving 4. Aspiration pneumonia -> Klebsiella 5. Intractable nausea and vomiting. 9. Previous PEG tube placement. 10. History of cerebral palsy. 11. History of developmental delay. 12. History of seizure disorder. 13. History of recurrent aspiration pneumonia. 14. Colon ileus. 15. Hypokalemia. 16. Hypernatremia 17. Hypovolemia Plan: 1. Diprivan infusion if needed for sedation; daily sedation vacation. 2. Monitor neuro status closely. 3. Continue with vent support and maintain sats above 92%. secretions may be a barrier to extubation. he is near extubation, but his RSBI is still near 110. 4. Bronchodilators in the form of DuoNeb q. 6. 5. Vent bundle. Soft restraints. 6. CT pulmonary angiogram -> no PE. 7. TF jevity @ goal of 30. per tube pepcid for GI prophylaxis. 8. free water 250cc q4h per tube for hypernatremia. d/c mivf. spironolactone 25mg po x 1 for intravascular volume overload. 9. Zosyn/Zithromax discontinued on 10/31 and patient switched to IV Unasyn by ID 10. Monitor CBC. 11. SCDs and heparin sq. 12. On laxatives. Fleets enema stopped 10/30, hold laxative 13. Reglan 14. Avoid narcotics Overall impression: He remains critically ill with hypoxemic respiratory failure , unable to wean from ventilator; continues to fail SBT. Provided update on patient's medical status with mother Mrs. Muro. Discussed with TERMINAL MAKE UP OPERATOR at bedside. Critical care 30 mins, exclusive of procedures. Physician Lois Marquez MD Nov 07, 2016 10:11
[2016-11-07] MEDS: POTASSIUM PHOSPHATE INJ 30 MMOL in SODIUM CHLOR 0.9% 250 ML INJ 250 ML IV PRN (11:54)
[2016-11-07 17:45] LABS: POTASSIUM 3.2 MEQ/L (3.5-5.1)
[2016-11-07] MEDS: POTASSIUM CHLOR 40 MEQ PREMIX 100 ML IV PRN (18:17)
[2016-11-07] MEDS: SODIUM CHLORIDE 0.9% FLUSH 5 ML FLUSH IVF PRN (20:30)
[2016-11-07 21:01] LABS: MEAN CORPUSCULAR HGB CONC 29.6 % (32.0-36.0)
[2016-11-08] VITALS (18 sets, daily range): BP systolic 84–102; BP diastolic 54–65; PULSE 64–97; RESP 16–24; TEMP 97.9–98.4; O2SAT 96–100
[2016-11-08] MEDS: VANCOMYCIN INJ 750 MG in SODIUM CHLOR 0.9% 250 ML INJ 250 ML IV SCH ×2 (03:07→14:00)
[2016-11-08] MEDS: PIPERACIL-TAZO 4.5 GM PREMIX 100 ML IV SCH ×3 (03:08→21:23)
[2016-11-08] MEDS: CHLORHEXIDINE GLUCONATE 2 % 1 PACK (2 CLOTHS) TOP SCH (03:08)
[2016-11-08] MEDS: OXYBUTYNIN CHLORIDE 5 MG TAB PO SCH ×3 (05:14→23:57)
[2016-11-08 07:32] LABS: HEMATOCRIT 26.6 % (39.0-51.0); MEAN CELL VOLUME 68.1 FL (80.0-100.0); MEAN CORPUSCULAR HEMOGLOBIN 20.2 PG (27.0-34.0); PLATELET COUNT 795 TH/MM3 (150-450); RED BLOOD COUNT 3.91 MIL/MM3 (4.50-5.90); RED CELL DISTRIBUTION WIDTH 28.7 % (11.6-17.2); WHITE BLOOD COUNT 11.3 TH/MM3 (4.0-11.0)
[2016-11-08 07:33] LABS: REVIEW FLAG FINAL
[2016-11-08 07:40] LABS: BICARBONATE 20.8 MEQ/L (21.0-32.0); POTASSIUM 3.8 MEQ/L (3.5-5.1)
[2016-11-08] MEDS: SENNOSIDES SYRUP 8.8 MG/5 ML CUP PO SCH ×2 (09:00→21:24)
[2016-11-08] MEDS: FAMOTIDINE 20 MG TAB NG SCH ×2 (09:01→21:24)
[2016-11-08] MEDS: PHENYTOIN SUSP 100 MG/4 ML CUP PEG SCH ×2 (09:01→21:24)
[2016-11-08] MEDS: HEPARIN SODIUM - SQ 10,000 UNITS/ML VIAL SQ SCH ×3 (09:01→23:57)
[2016-11-08] MEDS: TOPIRAMATE 100 MG TAB GT SCH ×2 (09:01→21:24)
[2016-11-08] MEDS: FLUDROCORTISONE ACETATE 0.1 MG TAB PO SCH (09:01)
[2016-11-08] MEDS: D5-1/2 NS + KCL 20 MEQ INJ 1,000 ML IV SCH (09:02)
[2016-11-08] MEDS ORDERED: PHARMACY ORDERED LAB XX ONE (13:45)
--- NOTE | 2016-11-08 15:36 | HHI.CCPN ---
Subjective Remarks/Hospital Course 10/23: Pneumonia, Respiratory Failure, Severe Sepsis - The patient is a 36-year- old male with a past medical history of cerebral palsy, seizure disorder, mental retardation, previous hospitalization for aspiration pneumonia who presented to [facility] ED after family found him more disoriented than usual and had been vomiting. In the ED the patient was found febrile with temperature of 102.1 rectally, tachycardiac with heart rate in the 130s to 150s and tachypneic. In addition the patient was hypoxemic on non-rebreather and he was subsequently intubated with etomidate, vecuronium and placed on full mechanical ventilation. 10/24: Severe sepsis persists despite broad abx coverage. Urine output improving after aggressive resuscitation. 10/25: GNR in sputum. Continue broad abx coverage pending speciation. Gas exchange improved. 10/26: He remains obstructed with a colon ileus and constipation. Right lung infiltrate persists. Bandemia persists. 10/27: Colon is frighteningly large. Hypokalemia complicating ileus. 10/28: Colon much less distended. Hypokalemia persists despite aggressive replacement. Respiratory failure from pneumonia persists. 10/29: Remains orally intubated on mech ventilation. 10/30: Awake, orally intubated on mechanical ventilation. Hypothermic today. Started on Taryn hugger. Did not tolerate tube feeds overnight. OG tube To suction currently. 10/31: Sedated, easily arousable, orally intubated on mechanical ventilation. GJ tube by IR today 11/01: arousable, still sedated. failing SBT. 11/02: arousable. passed SBT today. still has significant secretions. 11/03: Patient was diuresed yesterday, became hypotensive during the night requiring levophed infusion. Recent was noted have a significant elevation in WBC count. CT scan ordered. 11/04: Patient hypovolemic, central line placed last evening. Levophed continued at 2 mcgs, CVP monitoring initiated. CT scan results pending, repeat cultures obtained. 11/05: Diffuse ileus, no obstruction noted on CT results, calculated actual free phenytoin level 2.18, due to Albumin level 1.4. Increase in laxative stimulants , MiraLAX twice a day senna twice a day, lactulose daily, fleets enema today. Patient continues to be hypokalemic, IV fluids change D5 1/2 normal saline with KCl. Scheduled KCl BID. WBC count decreasing from 50->26 today. ID following, Dr. Yates. 11/06 Multiple bowel movements overnight. C. difficile antigen obtain negative. Normotensive throughout the night. Specialty bed ordered to prevent skin ulcerations. 11/07 The patient continues to have copious secretions. CPAP trials lasted for hours yesterday. 11/08: Remains orally intubated on mechanical ventilation. Overweight and alert. On C Pap trial Objective Vital Signs Date Time Temp Pulse Resp B/P Pulse Ox O2 Delivery O2 Flow Rate FiO2 11/08/16 15:20 100 30 11/08/16 14:00 97 11/08/16 12:00 98.0 22 84/55 Intake and Output 11/07/16 11/07/16 11/08/16 08:00 16:00 00:00 Intake Total 1022 ml 851 ml 1211 ml Output Total 1200 ml 1700 ml 2000 ml Balance -178 ml -849 ml -789 ml Result Diagram: 11/08/16 0535 11/08/16 0535 Imaging Last Impressions Chest X-Ray 11/03/16 0000 Signed Impressions: Service Date/Time: Thursday, November 03, 2016 23:14 - CONCLUSION: 1. Right IJ line distal tip in the right atrium. No pneumothorax is visualized. 2. Patchy airspace consolidation remains present throughout the right lung. Mg Darling MD Gastrostomy Tube Change 10/31/16 0000 Signed Impressions: Service Date/Time: Monday, October 31, 2016 15:06 - CONCLUSION: 1. Uncomplicated conversion from gastrostomy to gastrojejunostomy Young Queen MD Abdomen X-Ray 10/28/16 0600 Signed Impressions: Service Date/Time: Friday, October 28, 2016 05:08 - CONCLUSION: Left lower lobe pulmonary consolidation. There are gas-filled dilated bowel loops identified though slightly decreased. Oj Shipley MD CT Angiography 10/23/16 1712 Signed Impressions: Service Date/Time: Sunday, October 23, 2016 19:27 - CONCLUSION: 1. Negative for pulmonary embolus. 2. Diffuse bilateral airspace disease most characteristic of aspiration or pneumonia. 3. Endotracheal tube in satisfactory position. There is some mucoid debris in the airways. 4. Gallstones. Ileus. Scoliosis. Michael Feldman MD Abdomen/Pelvis CT 10/23/16 1625 Signed Impressions: Service Date/Time: Sunday, October 23, 2016 19:27 - CONCLUSION: 1. Multiple gallstones. Diffuse ileus. Scoliosis with bilateral hip dysplasia. Basilar lung disease. See chest CT. Michael Feldman MD Last Impressions Abdomen X-Ray 10/28/16 0600 Signed Impressions: Service Date/Time: Friday, October 28, 2016 05:08 - CONCLUSION: Left lower lobe pulmonary consolidation. There are gas-filled dilated bowel loops identified though slightly decreased. Oj Shipley MD Chest X-Ray 10/26/16 0000 Signed Impressions: Service Date/Time: October 08:29 - CONCLUSION: Stable endotracheal tube which appears slightly high. Stable airspace consolidation within the right hemithorax. Iesha Murray MD CT Angiography 10/23/16 1712 Signed Impressions: Service Date/Time: Sunday, October 23, 2016 19:27 - CONCLUSION: 1. Negative for pulmonary embolus. 2. Diffuse bilateral airspace disease most characteristic of aspiration or pneumonia. 3. Endotracheal tube in satisfactory position. There is some mucoid debris in the airways. 4. Gallstones. Ileus. Scoliosis. Michael Feldman MD Abdomen/Pelvis CT 10/23/16 1625 Signed Impressions: Service Date/Time: Sunday, October 23, 2016 19:27 - CONCLUSION: 1. Multiple gallstones. Diffuse ileus. Scoliosis with bilateral hip dysplasia. Basilar lung disease. See chest CT. Michael Feldman MD Objective Remarks PHYSICAL EXAMINATION GENERAL: Critically ill 36-year-old male non-communicative HEENT: Atraumatic, normocephalic. Orally intubated. NECK: Supple. CARDIOVASCULAR EXAM: Tachycardic. Normal S1 and S2. No murmurs. No JVD. PULMONARY EXAM: Bilateral equal air entry. Diffuse rhonchi persist right. Left clear. Acceptable excursions on ventilator. ABDOMEN: Tenderness on palpation. firm, distended. G-tube in place. BS improved. EXTREMITIES: Warm, well perfused. NEUROLOGIC: awake and looking around. does not follow commands, chronically contractured joints. Cerebral palsy. Opens eyes spontaneously Date of Insertion: Nov 03, 2016 Line: Central Venous Catheter Side: Right Location: Internal, Jugular (vasoactive medication) A/P Assessment and Plan IMPRESSION: 1. Acute hypoxemic respiratory failure requiring intubation. 2. Lactic acidemia- resolving. 3. Acute kidney injury- resolving 4. Aspiration pneumonia -> Klebsiella 5. Intractable nausea and vomiting. 9. Previous PEG tube placement. 10. History of cerebral palsy. 11. History of developmental delay. 12. History of seizure disorder. 13. History of recurrent aspiration pneumonia. 14. Colon ileus. 15. Hypokalemia. 16. Hypernatremia 17. Hypovolemia Plan: 1. Diprivan infusion if needed for sedation; daily sedation vacation. 2. Monitor neuro status closely. 3. Continue with vent support and maintain sats above 92%. secretions may be a barrier to extubation. he is near extubation, but his RSBI is still near 110. 4. Bronchodilators in the form of DuoNeb q. 6. 5. Vent bundle. Soft restraints. 6. CT pulmonary angiogram -> no PE. 7. TF jevity @ goal of 30. per tube pepcid for GI prophylaxis. 8. free water 250cc q4h per tube for hypernatremia. d/c mivf. spironolactone 25mg po x 1 for intravascular volume overload. 9. Zosyn/Zithromax discontinued on 10/31 and patient switched to IV Unasyn by ID 10. Monitor CBC. 11. SCDs and heparin sq. 12. On laxatives. Fleets enema stopped 10/30, hold laxative 13. Reglan 14. Avoid narcotics Overall impression: He remains critically ill with hypoxemic respiratory failure. Discussed with PRINT ROOM WORKER at bedside. Critical care 30 mins, exclusive of procedures. Kirk Yates MD Nov 08, 2016 15:36
[2016-11-09] VITALS (19 sets, daily range): BP systolic 96–118; BP diastolic 55–59; PULSE 67–92; RESP 16–23; TEMP 97.8–98.8; O2SAT 93–100
[2016-11-09] MEDS: CHLORHEXIDINE GLUCONATE 2 % 1 PACK (2 CLOTHS) TOP SCH (04:00)
[2016-11-09] MEDS: PIPERACIL-TAZO 4.5 GM PREMIX 100 ML IV SCH ×3 (04:29→20:44)
[2016-11-09] MEDS ORDERED: VANCOMYCIN INJ 750 MG in SODIUM CHLOR 0.9% 250 ML INJ 250 ML IV SCH (05:00)
[2016-11-09] MEDS: OXYBUTYNIN CHLORIDE 5 MG TAB PO SCH ×3 (06:00→23:35)
[2016-11-09] MEDS: PHENYTOIN SUSP 100 MG/4 ML CUP PEG SCH ×2 (07:28→20:44)
[2016-11-09] MEDS: FLUDROCORTISONE ACETATE 0.1 MG TAB PO SCH (07:28)
[2016-11-09] MEDS: FAMOTIDINE 20 MG TAB NG SCH ×2 (07:28→20:44)
[2016-11-09] MEDS: HEPARIN SODIUM - SQ 10,000 UNITS/ML VIAL SQ SCH ×3 (07:28→23:35)
[2016-11-09] MEDS: TOPIRAMATE 100 MG TAB GT SCH ×2 (07:29→20:44)
[2016-11-09] MEDS: SENNOSIDES SYRUP 8.8 MG/5 ML CUP PO SCH ×2 (07:29→20:44)
[2016-11-09] MEDS: D5-1/2 NS + KCL 20 MEQ INJ 1,000 ML IV SCH ×2 (07:30→12:55)
--- NOTE | 2016-11-09 14:19 | HHI.IDPN ---
Subjective Subjective Remarks Mr. Thakur is a 36-year-old male with past medical history significant for cerebral palsy, seizure disorder, mental retardation, previous history of hospitalization for aspiration pneumonia. Patient now admitted for Aspiration PNA, Sepsis, acute metabolic encephalopathy and Ileus. Notes reviewed D/W RN More alert today, does not follow commands. No rash UO good. Tolerating tube feeds. Not on pressors. Copious diarrhea. Cdiff negative. On Tube feeds. Copious white thick secretions needing very frequent suctioning. Antibiotics Zosyn IV Vanco IV Lines Line sites with no e/o infection Past Medical History reviewed Allergies: Coded Allergies: No Known Allergies (Unverified , 06/21/16) Objective . Vital Signs Date Time Temp Pulse Resp B/P Pulse Ox O2 Delivery O2 Flow Rate FiO2 11/09/16 11:47 100 30 11/09/16 10:00 88 11/09/16 08:07 98 30 11/09/16 08:00 69 11/09/16 08:00 97.9 69 23 118/57 100 11/09/16 08:00 30 11/09/16 06:00 70 11/09/16 04:34 95 30 11/09/16 04:00 30 11/09/16 04:00 71 11/09/16 04:00 98.0 73 18 98/59 98 11/09/16 02:00 67 11/09/16 00:45 98 40 11/09/16 00:00 97.8 82 18 98/55 98 11/09/16 00:00 82 11/09/16 00:00 30 11/08/16 22:00 84 11/08/16 20:00 98.1 82 18 98/58 100 11/08/16 20:00 90 11/08/16 20:00 30 11/08/16 19:52 99 30 11/08/16 18:00 83 11/08/16 16:00 84 11/08/16 16:00 97.9 90 24 102/65 100 11/08/16 16:00 30 11/08/16 15:20 100 30 11/08/16 11/08/16 11/09/16 15:00 23:00 07:00 Intake Total 747 ml 785 ml 933 ml Output Total 1400 ml 1000 ml 450 ml Balance -653 ml -215 ml 483 ml IV Total 488 ml 439 ml 587 ml Tube Feeding 259 ml 246 ml 246 ml Other 100 ml 100 ml Output Urine Total 1400 ml 1000 ml 450 ml # Bowel Movements 0 0 2 . Laboratory Tests Test 11/08/16 05:35 White Blood Count 11.3 TH/MM3 Red Blood Count 3.91 MIL/MM3 Hemoglobin 7.9 GM/DL Hematocrit 26.6 % Mean Corpuscular Volume 68.1 FL Mean Corpuscular Hemoglobin 20.2 PG Mean Corpuscular Hemoglobin 29.6 % Concent Red Cell Distribution Width 28.7 % Platelet Count 795 TH/MM3 Mean Platelet Volume 9.0 FL Laboratory Tests Test 11/07/16 11/08/16 16:15 05:35 Potassium Level 3.2 MEQ/L 3.8 MEQ/L Phosphorus Level 3.4 MG/DL Sodium Level 142 MEQ/L Chloride Level 112 MEQ/L Carbon Dioxide Level 20.8 MEQ/L Anion Gap 9 MEQ/L Blood Urea Nitrogen 2 MG/DL Creatinine 0.56 MG/DL Estimat Glomerular Filtration 202 ML/MIN Rate Random Glucose 87 MG/DL Calcium Level 7.5 MG/DL Microbiology Date/Time Procedure Status Source Growth 11/09/16 13:53 Gram Stain Received Sputum Endotracheal Pending 11/09/16 13:53 Sputum Culture Received Sputum Endotracheal Pending Imaging Last Impressions Abdomen X-Ray 10/27/16 0600 Signed Impressions: Service Date/Time: Thursday, October 27, 2016 05:56 - CONCLUSION: Probable ileus pattern. Close clinical and radiographic followup recommended. Oj Shipley MD Chest X-Ray 10/26/16 0000 Signed Impressions: Service Date/Time: October 08:29 - CONCLUSION: Stable endotracheal tube which appears slightly high. Stable airspace consolidation within the right hemithorax. Iesha Murray MD CT Angiography 10/23/16 1712 Signed Impressions: Service Date/Time: Sunday, October 23, 2016 19:27 - CONCLUSION: 1. Negative for pulmonary embolus. 2. Diffuse bilateral airspace disease most characteristic of aspiration or pneumonia. 3. Endotracheal tube in satisfactory position. There is some mucoid debris in the airways. 4. Gallstones. Ileus. Scoliosis. Michael Feldman MD Abdomen/Pelvis CT 10/23/16 1625 Signed Impressions: Service Date/Time: Sunday, October 23, 2016 19:27 - CONCLUSION: 1. Multiple gallstones. Diffuse ileus. Scoliosis with bilateral hip dysplasia. Basilar lung disease. See chest CT. Michael Feldman MD Physical Exam GENERAL: Lethargic on vent. SKIN: No rashes. Warm and dry HEAD: Atraumatic. No temporal or scalp tenderness. EYES: Pupils equal round and reactive. No scleral icterus. No injection or drainage. ENT: Nose without bleeding, purulent drainage or septal hematoma. ET in mouth NECK: Trachea midline. Supple, nontender, no meningeal signs. Scar in neck from previous trach CARDIOVASCULAR: HS audible. RESPIRATORY: Has scattered rhonchi GASTROINTESTINAL: Abdomen soft, distended, non tender, no rebound or rigidity. GJ tube site ok. MUSCULOSKELETAL: Extremities with contractures and deformities. No joint effusion, or edema noted. NEUROLOGICAL: Lethargic. Opens eyes when abdomen examined. Extremities spastic and contracted Psych: could not be assessed. IV line sites with no e/o infection. Assessment & Plan Remarks Sepsis likely secondary to recurrent aspiration pneumonia. Pneumonia present on admission: Aspiration pneumonia appears to be most likely. Although patient lives in the community and would like to rule out community- acquired pneumonia as well as atypical pneumonia. Staph auricularis bacteremia likely contamination Acute metabolic encephalopathy: At baseline patient has cerebral palsy with developmental delay but reportedly there has been a change from baseline. 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 History of Brina fundoplication as well as exploratory laparotomy for small bowel obstruction. Patient is at risk for recurrent aspiration pneumonia due to his history of Brina fundoplication, developmental delay, seizure disorder, scoliosis, distorted GI as well as skeletal anatomy. Recommendations: Check cuadra cultures Continue Zosyn IV DC Vanco IV Repeat Sputum culture: if normal resp hao clinically improving will stop all antibiotics. Of note patient at risk for recurrent aspiration PNA. D/W RN Concern the repeated sepsis episodes are from repeated aspiration events. Janet Yates MD Nov 09, 2016 14:18
[2016-11-09 15:18] LABS: C. DIFF EPI 027 PRESUMPTIVE NEGATIVE (NEGATIVE); C. DIFF TOXIN PCR NEGATIVE (NEGATIVE)
--- NOTE | 2016-11-09 17:49 | HHI.CCPN ---
Subjective Remarks/Hospital Course 10/23: Pneumonia, Respiratory Failure, Severe Sepsis - The patient is a 36-year- old male with a past medical history of cerebral palsy, seizure disorder, mental retardation, previous hospitalization for aspiration pneumonia who presented to [facility] ED after family found him more disoriented than usual and had been vomiting. In the ED the patient was found febrile with temperature of 102.1 rectally, tachycardiac with heart rate in the 130s to 150s and tachypneic. In addition the patient was hypoxemic on non-rebreather and he was subsequently intubated with etomidate, vecuronium and placed on full mechanical ventilation. 10/24: Severe sepsis persists despite broad abx coverage. Urine output improving after aggressive resuscitation. 10/25: GNR in sputum. Continue broad abx coverage pending speciation. Gas exchange improved. 10/26: He remains obstructed with a colon ileus and constipation. Right lung infiltrate persists. Bandemia persists. 10/27: Colon is frighteningly large. Hypokalemia complicating ileus. 10/28: Colon much less distended. Hypokalemia persists despite aggressive replacement. Respiratory failure from pneumonia persists. 10/29: Remains orally intubated on mech ventilation. 10/30: Awake, orally intubated on mechanical ventilation. Hypothermic today. Started on Taryn hugger. Did not tolerate tube feeds overnight. OG tube To suction currently. 10/31: Sedated, easily arousable, orally intubated on mechanical ventilation. GJ tube by IR today 11/01: arousable, still sedated. failing SBT. 11/02: arousable. passed SBT today. still has significant secretions. 11/03: Patient was diuresed yesterday, became hypotensive during the night requiring levophed infusion. Recent was noted have a significant elevation in WBC count. CT scan ordered. 11/04: Patient hypovolemic, central line placed last evening. Levophed continued at 2 mcgs, CVP monitoring initiated. CT scan results pending, repeat cultures obtained. 11/05: Diffuse ileus, no obstruction noted on CT results, calculated actual free phenytoin level 2.18, due to Albumin level 1.4. Increase in laxative stimulants , MiraLAX twice a day senna twice a day, lactulose daily, fleets enema today. Patient continues to be hypokalemic, IV fluids change D5 1/2 normal saline with KCl. Scheduled KCl BID. WBC count decreasing from 50->26 today. ID following, Dr. Yates. 11/06 Multiple bowel movements overnight. C. difficile antigen obtain negative. Normotensive throughout the night. Specialty bed ordered to prevent skin ulcerations. 11/07 The patient continues to have copious secretions. CPAP trials lasted for hours yesterday. 11/08: Remains orally intubated on mechanical ventilation. Overweight and alert. On C Pap trial. 11/09: Extubated today following C Pap trial. Currently on nasal cannula Objective Vital Signs Date Time Temp Pulse Resp B/P Pulse Ox O2 Delivery O2 Flow Rate FiO2 11/09/16 17:22 95 Nasal Cannula 3.00 11/09/16 16:00 69 11/09/16 16:00 98.8 23 96/57 11/09/16 12:00 30 Intake and Output 11/08/16 11/08/16 11/09/16 08:00 16:00 00:00 Intake Total 912 ml 747 ml 785 ml Output Total 1600 ml 1400 ml 1000 ml Balance -688 ml -653 ml -215 ml Result Diagram: 11/08/16 0535 11/08/16 0535 Imaging Last Impressions Chest X-Ray 11/03/16 0000 Signed Impressions: Service Date/Time: Thursday, November 03, 2016 23:14 - CONCLUSION: 1. Right IJ line distal tip in the right atrium. No pneumothorax is visualized. 2. Patchy airspace consolidation remains present throughout the right lung. Mg Darling MD Gastrostomy Tube Change 10/31/16 0000 Signed Impressions: Service Date/Time: Monday, October 31, 2016 15:06 - CONCLUSION: 1. Uncomplicated conversion from gastrostomy to gastrojejunostomy Young Queen MD Abdomen X-Ray 10/28/16 0600 Signed Impressions: Service Date/Time: Friday, October 28, 2016 05:08 - CONCLUSION: Left lower lobe pulmonary consolidation. There are gas-filled dilated bowel loops identified though slightly decreased. Oj Shipley MD CT Angiography 10/23/16 1712 Signed Impressions: Service Date/Time: Sunday, October 23, 2016 19:27 - CONCLUSION: 1. Negative for pulmonary embolus. 2. Diffuse bilateral airspace disease most characteristic of aspiration or pneumonia. 3. Endotracheal tube in satisfactory position. There is some mucoid debris in the airways. 4. Gallstones. Ileus. Scoliosis. Michael Feldman MD Abdomen/Pelvis CT 10/23/16 1625 Signed Impressions: Service Date/Time: Sunday, October 23, 2016 19:27 - CONCLUSION: 1. Multiple gallstones. Diffuse ileus. Scoliosis with bilateral hip dysplasia. Basilar lung disease. See chest CT. Michael Feldman MD Last Impressions Abdomen X-Ray 10/28/16 0600 Signed Impressions: Service Date/Time: Friday, October 28, 2016 05:08 - CONCLUSION: Left lower lobe pulmonary consolidation. There are gas-filled dilated bowel loops identified though slightly decreased. Oj Shipley MD Chest X-Ray 10/26/16 0000 Signed Impressions: Service Date/Time: October 08:29 - CONCLUSION: Stable endotracheal tube which appears slightly high. Stable airspace consolidation within the right hemithorax. Iesha Murray MD CT Angiography 10/23/16 1712 Signed Impressions: Service Date/Time: Sunday, October 23, 2016 19:27 - CONCLUSION: 1. Negative for pulmonary embolus. 2. Diffuse bilateral airspace disease most characteristic of aspiration or pneumonia. 3. Endotracheal tube in satisfactory position. There is some mucoid debris in the airways. 4. Gallstones. Ileus. Scoliosis. Michael Feldman MD Abdomen/Pelvis CT 10/23/16 1625 Signed Impressions: Service Date/Time: Sunday, October 23, 2016 19:27 - CONCLUSION: 1. Multiple gallstones. Diffuse ileus. Scoliosis with bilateral hip dysplasia. Basilar lung disease. See chest CT. Michael Feldman MD Objective Remarks PHYSICAL EXAMINATION GENERAL: 36-year-old male non-communicative HEENT: Atraumatic, normocephalic. NECK: Supple. CARDIOVASCULAR EXAM: Tachycardic. Normal S1 and S2. No murmurs. No JVD. PULMONARY EXAM: Bilateral equal air entry. Scattered rhonchi on the right. Left clear. ABDOMEN: Tenderness on palpation. firm, distended. G-tube in place. BS improved. EXTREMITIES: Warm, well perfused. NEUROLOGIC: awake and looking around. does not follow commands, chronically contractured joints. Cerebral palsy. Opens eyes spontaneously Date of Insertion: Nov 03, 2016 Line: Central Venous Catheter Side: Right Location: Internal, Jugular (vasoactive medication) A/P Assessment and Plan IMPRESSION: 1. Acute hypoxemic respiratory failure 2. Lactic acidemia- resolved. 3. Acute kidney injury- resolving 4. Aspiration pneumonia -> Klebsiella 5. Intractable nausea and vomiting. 9. Previous PEG tube placement. 10. History of cerebral palsy. 11. History of developmental delay. 12. History of seizure disorder. 13. History of recurrent aspiration pneumonia. 14. Colon ileus. 15. Hypokalemia. 16. Hypernatremia 17. Hypovolemia Plan: 1. Off all sedation 2. Monitor neuro status closely. 3. Extubated following C Pap trials on 11/09, tolerating nasal cannula currently 4. Bronchodilators in the form of DuoNeb q. 6. 5. Soft restraints. 6. CT pulmonary angiogram -> no PE. 7. TF jevity @ goal of 30. per tube pepcid for GI prophylaxis. 8. free water 250cc q4h per tube for hypernatremia. d/c mivf. spironolactone 25mg po x 1 for intravascular volume overload. 9. Zosyn per ID, Vanc stopped 11/09 10. Monitor CBC. 11. SCDs and heparin sq. 12. On laxatives. Fleets enema stopped 10/30, hold laxative 13. Reglan 14. Avoid narcotics Discussed with HRIS COORDINATOR at bedside. iKrk Yates MD Nov 09, 2016 17:49
[2016-11-09] MEDS ORDERED: ALTEPLASE RECOMBINANT 2 MG VIAL INTRACATH ONE (22:30)
[2016-11-10] VITALS (15 sets, daily range): BP systolic 91–110; BP diastolic 58–70; PULSE 59–120; RESP 18–27; TEMP 97.2–97.9; O2SAT 100
[2016-11-10] MEDS: OXYBUTYNIN CHLORIDE 5 MG TAB PO SCH ×3 (05:18→20:35)
[2016-11-10] MEDS: PIPERACIL-TAZO 4.5 GM PREMIX 100 ML IV SCH ×3 (05:19→20:36)
[2016-11-10] MEDS: SENNOSIDES SYRUP 8.8 MG/5 ML CUP PO SCH ×2 (09:00→20:36)
[2016-11-10] MEDS: PHENYTOIN SUSP 100 MG/4 ML CUP PEG SCH ×2 (09:31→20:35)
[2016-11-10] MEDS: TOPIRAMATE 100 MG TAB GT SCH ×2 (09:31→20:35)
[2016-11-10] MEDS: FAMOTIDINE 20 MG TAB NG SCH ×2 (09:31→20:35)
[2016-11-10] MEDS: HEPARIN SODIUM - SQ 10,000 UNITS/ML VIAL SQ SCH ×2 (09:31→15:09)
[2016-11-10] MEDS: FLUDROCORTISONE ACETATE 0.1 MG TAB PO SCH (09:31)
--- NOTE | 2016-11-10 10:48 | HHI.CCPN ---
Subjective Remarks/Hospital Course 10/23: Pneumonia, Respiratory Failure, Severe Sepsis - The patient is a 36-year- old male with a past medical history of cerebral palsy, seizure disorder, mental retardation, previous hospitalization for aspiration pneumonia who presented to [facility] ED after family found him more disoriented than usual and had been vomiting. In the ED the patient was found febrile with temperature of 102.1 rectally, tachycardiac with heart rate in the 130s to 150s and tachypneic. In addition the patient was hypoxemic on non-rebreather and he was subsequently intubated with etomidate, vecuronium and placed on full mechanical ventilation. 10/24: Severe sepsis persists despite broad abx coverage. Urine output improving after aggressive resuscitation. 10/25: GNR in sputum. Continue broad abx coverage pending speciation. Gas exchange improved. 10/26: He remains obstructed with a colon ileus and constipation. Right lung infiltrate persists. Bandemia persists. 10/27: Colon is frighteningly large. Hypokalemia complicating ileus. 10/28: Colon much less distended. Hypokalemia persists despite aggressive replacement. Respiratory failure from pneumonia persists. 10/29: Remains orally intubated on mech ventilation. 10/30: Awake, orally intubated on mechanical ventilation. Hypothermic today. Started on Taryn hugger. Did not tolerate tube feeds overnight. OG tube To suction currently. 10/31: Sedated, easily arousable, orally intubated on mechanical ventilation. GJ tube by IR today 11/01: arousable, still sedated. failing SBT. 11/02: arousable. passed SBT today. still has significant secretions. 11/03: Patient was diuresed yesterday, became hypotensive during the night requiring levophed infusion. Recent was noted have a significant elevation in WBC count. CT scan ordered. 11/04: Patient hypovolemic, central line placed last evening. Levophed continued at 2 mcgs, CVP monitoring initiated. CT scan results pending, repeat cultures obtained. 11/05: Diffuse ileus, no obstruction noted on CT results, calculated actual free phenytoin level 2.18, due to Albumin level 1.4. Increase in laxative stimulants , MiraLAX twice a day senna twice a day, lactulose daily, fleets enema today. Patient continues to be hypokalemic, IV fluids change D5 1/2 normal saline with KCl. Scheduled KCl BID. WBC count decreasing from 50->26 today. ID following, Dr. Yates. 11/06 Multiple bowel movements overnight. C. difficile antigen obtain negative. Normotensive throughout the night. Specialty bed ordered to prevent skin ulcerations. 11/07 The patient continues to have copious secretions. CPAP trials lasted for hours yesterday. 11/08: Remains orally intubated on mechanical ventilation. Overweight and alert. On C Pap trial. 11/09: Extubated today following C Pap trial. Currently on nasal cannula 11/10 N0 acute events overnight. On 3L oxygen with good sats. Afebrile. Objective Vital Signs Date Time Temp Pulse Resp B/P Pulse Ox O2 Delivery O2 Flow Rate FiO2 11/10/16 09:43 100 Nasal Cannula 3.00 11/10/16 06:00 120 11/09/16 16:00 98.8 23 96/57 11/09/16 12:00 30 Intake and Output 11/09/16 11/09/16 11/10/16 08:00 16:00 00:00 Intake Total 933 ml 732 ml 447 ml Output Total 450 ml 900 ml 900 ml Balance 483 ml -168 ml -453 ml Result Diagram: 11/08/16 0535 11/08/16 0535 Other Results Laboratory Tests Test 11/09/16 13:53 Stool C. difficile Toxin (PCR) NEGATIVE Stl C. difficile Toxin PRESUMPTIVE Epiderm 027 NEGATIVE Imaging Last Impressions Chest X-Ray 11/07/16 0600 Signed Impressions: Service Date/Time: Monday, November 07, 2016 04:57 - CONCLUSION: No significant change has occurred. Oj Shipley MD Chest CT 11/03/16 0000 Signed Impressions: Service Date/Time: Friday, November 04, 2016 17:34 - CONCLUSION: Compared with October 23 there is new dense consolidation left lower lobe most characteristic of pneumonia or aspiration. Improved airspace disease on the right since prior exam. New small bilateral pleural effusions. Michael Feldman MD Abdomen/Pelvis CT 11/03/16 0000 Signed Impressions: Service Date/Time: Friday, November 04, 2016 17:38 - CONCLUSION: 1. Feeding jejunostomy now present in upper abdomen. Diffuse ileus. No evidence for obstruction. Multiple calcified gallstones. 2. Mild mural thickening of the colon especially distally which may indicate mild colitis. Michael Feldman MD Gastrostomy Tube Change 10/31/16 0000 Signed Impressions: Service Date/Time: Monday, October 31, 2016 15:06 - CONCLUSION: 1. Uncomplicated conversion from gastrostomy to gastrojejunostomy Young Queen MD Abdomen X-Ray 10/28/16 0600 Signed Impressions: Service Date/Time: Friday, October 28, 2016 05:08 - CONCLUSION: Left lower lobe pulmonary consolidation. There are gas-filled dilated bowel loops identified though slightly decreased. Oj Shipley MD CT Angiography 10/23/16 1712 Signed Impressions: Service Date/Time: Sunday, October 23, 2016 19:27 - CONCLUSION: 1. Negative for pulmonary embolus. 2. Diffuse bilateral airspace disease most characteristic of aspiration or pneumonia. 3. Endotracheal tube in satisfactory position. There is some mucoid debris in the airways. 4. Gallstones. Ileus. Scoliosis. Michael Feldman MD Objective Remarks PHYSICAL EXAMINATION GENERAL: 36-year-old male non-communicative HEENT: Atraumatic, normocephalic. NECK: Supple. CARDIOVASCULAR EXAM: Tachycardic. Normal S1 and S2. No murmurs. No JVD. PULMONARY EXAM: Bilateral equal air entry. Scattered rhonchi on the right. Left clear. ABDOMEN: Soft, non tender. G-tube in place. + BS EXTREMITIES: Warm, well perfused. NEUROLOGIC: awake and looking around. does not follow commands, chronically contractured joints. Cerebral palsy. Opens eyes spontaneously Date of Insertion: Nov 03, 2016 Line: Central Venous Catheter Side: Right Location: Internal, Jugular (vasoactive medication) A/P Assessment and Plan IMPRESSION: 1. Acute hypoxemic respiratory failure 2. Lactic acidemia- resolved. 3. Acute kidney injury- resolving 4. Aspiration pneumonia -> Klebsiella 5. Intractable nausea and vomiting. 9. Previous PEG tube placement. 10. History of cerebral palsy. 11. History of developmental delay. 12. History of seizure disorder. 13. History of recurrent aspiration pneumonia. 14. Colon ileus. Plan: Neuro: Monitor neuro status, avoid sedatives On Dilantin liquid 100mg Q12, Topamax Pulm: Extubated following C Pap trials on 11/09, Continue with oxygen keep sat >92%, Bronchodilators CT pulmonary angiogram -> no PE on 10/23 CV: Monitor HR and BP keep MAP>65mmHg : Monitor renal function, I/O's, electrolytes replacement per protocol. d/c IVF GI : On TF jevity @ goal of 30. On Pepcid for GI prophylaxis. ID: Continue abx per ID (Zosyn) Vanco stopped 11/09. Monitor for signs of infections ( Fever, WBC) Follow up on sputum cx from 11/09 Heme: Monitor CBC. Heme eval for thrombocytosis DVT prophylaxis- on SCDs and heparin sq. GI prophylaxis - on Pepcid Lines Right IJ CVP placed 11/03, d/c CVP line once peripheral IV's placed. Discussed with POLITICAL SCIENCE RESEARCH ASSISTANT at bedside. Check labs today Level 3 Anjelica Kwon MD Nov 10, 2016 10:48
[2016-11-10 11:57] LABS: AUTOMATED NEUTROPHIL # 4.2 TH/MM3 (1.8-7.7); BASOPHIL # 0.1 TH/MM3 (0-0.2); BASOPHIL % 1.4 % (0.0-2.0); EOSINOPHIL # 0.4 TH/MM3 (0-0.4); EOSINOPHIL % 4.3 % (0.0-4.0); HEMATOCRIT 27.6 % (39.0-51.0); LYMPH % 34.6 % (9.0-44.0); LYMPHOCYTE # 2.9 TH/MM3 (1.0-4.8); MEAN CELL VOLUME 68.8 FL (80.0-100.0); MEAN CORPUSCULAR HEMOGLOBIN 21.6 PG (27.0-34.0); MEAN CORPUSCULAR HGB CONC 31.4 % (32.0-36.0); MONO % 9.3 % (0.0-8.0); NEUT % 50.4 % (16.0-70.0); PLATELET COUNT 994 TH/MM3 (150-450); RED BLOOD COUNT 4.02 MIL/MM3 (4.50-5.90); RED CELL DISTRIBUTION WIDTH 27.9 % (11.6-17.2); WHITE BLOOD COUNT 8.4 TH/MM3 (4.0-11.0)
[2016-11-10 12:03] LABS: HEMO FLAGS AUTO DIFF
[2016-11-10 12:06] LABS: BICARBONATE 23.8 MEQ/L (21.0-32.0); MAGNESIUM 1.9 MG/DL (1.5-2.5); POTASSIUM 3.6 MEQ/L (3.5-5.1)
[2016-11-10 12:50] LABS: TARGET CELLS 2+ (NORMAL)
[2016-11-10 12:51] LABS: ACANTHOCYTES OCC (NORMAL); KERATOCYTES OCC (NORMAL)
[2016-11-10 12:52] LABS: SCAN/DIFF AUTO DIFF CONFIRMED
[2016-11-10 21:18] LABS: FERRITIN 103 NG/ML (26-388); TRANSFERRIN IRON PROFILE 145 MG/DL (200-360)
[2016-11-11] VITALS (14 sets, daily range): BP systolic 89–103; BP diastolic 57–63; PULSE 68–95; RESP 18–24; TEMP 97.9–98.1; O2SAT 97–100
[2016-11-11] MEDS: HEPARIN SODIUM - SQ 10,000 UNITS/ML VIAL SQ SCH ×3 (00:58→15:02)
[2016-11-11] MEDS: PIPERACIL-TAZO 4.5 GM PREMIX 100 ML IV SCH ×3 (03:35→20:36)
[2016-11-11] MEDS: CHLORHEXIDINE GLUCONATE 2 % 1 PACK (2 CLOTHS) TOP SCH ×2 (03:35→20:37)
[2016-11-11] MEDS: OXYBUTYNIN CHLORIDE 5 MG TAB PO SCH ×3 (05:36→20:36)
[2016-11-11 06:31] LABS: BICARBONATE 22.2 MEQ/L (21.0-32.0); POTASSIUM 3.2 MEQ/L (3.5-5.1)
[2016-11-11 06:47] LABS: AUTOMATED NEUTROPHIL # 3.7 TH/MM3 (1.8-7.7); BASOPHIL # 0.1 TH/MM3 (0-0.2); BASOPHIL % 0.8 % (0.0-2.0); EOSINOPHIL # 0.4 TH/MM3 (0-0.4); HEMATOCRIT 27.8 % (39.0-51.0); LYMPH % 41.7 % (9.0-44.0); LYMPHOCYTE # 3.4 TH/MM3 (1.0-4.8); MEAN CELL VOLUME 68.7 FL (80.0-100.0); MEAN CORPUSCULAR HEMOGLOBIN 21.1 PG (27.0-34.0); MEAN CORPUSCULAR HGB CONC 30.7 % (32.0-36.0); NEUT % 44.5 % (16.0-70.0); PLATELET COUNT 1027 TH/MM3 (150-450); RED BLOOD COUNT 4.04 MIL/MM3 (4.50-5.90); RED CELL DISTRIBUTION WIDTH 28.4 % (11.6-17.2); WHITE BLOOD COUNT 8.2 TH/MM3 (4.0-11.0)
[2016-11-11 06:51] LABS: HEMO FLAGS AUTO DIFF
--- NOTE | 2016-11-11 07:49 | HHI.CCPN ---
Subjective Remarks/Hospital Course 10/23: Pneumonia, Respiratory Failure, Severe Sepsis - The patient is a 36-year- old male with a past medical history of cerebral palsy, seizure disorder, mental retardation, previous hospitalization for aspiration pneumonia who presented to [facility] ED after family found him more disoriented than usual and had been vomiting. In the ED the patient was found febrile with temperature of 102.1 rectally, tachycardiac with heart rate in the 130s to 150s and tachypneic. In addition the patient was hypoxemic on non-rebreather and he was subsequently intubated with etomidate, vecuronium and placed on full mechanical ventilation. 10/24: Severe sepsis persists despite broad abx coverage. Urine output improving after aggressive resuscitation. 10/25: GNR in sputum. Continue broad abx coverage pending speciation. Gas exchange improved. 10/26: He remains obstructed with a colon ileus and constipation. Right lung infiltrate persists. Bandemia persists. 10/27: Colon is frighteningly large. Hypokalemia complicating ileus. 10/28: Colon much less distended. Hypokalemia persists despite aggressive replacement. Respiratory failure from pneumonia persists. 10/29: Remains orally intubated on mech ventilation. 10/30: Awake, orally intubated on mechanical ventilation. Hypothermic today. Started on Taryn hugger. Did not tolerate tube feeds overnight. OG tube To suction currently. 10/31: Sedated, easily arousable, orally intubated on mechanical ventilation. GJ tube by IR today 11/01: arousable, still sedated. failing SBT. 11/02: arousable. passed SBT today. still has significant secretions. 11/03: Patient was diuresed yesterday, became hypotensive during the night requiring levophed infusion. Recent was noted have a significant elevation in WBC count. CT scan ordered. 11/04: Patient hypovolemic, central line placed last evening. Levophed continued at 2 mcgs, CVP monitoring initiated. CT scan results pending, repeat cultures obtained. 11/05: Diffuse ileus, no obstruction noted on CT results, calculated actual free phenytoin level 2.18, due to Albumin level 1.4. Increase in laxative stimulants , MiraLAX twice a day senna twice a day, lactulose daily, fleets enema today. Patient continues to be hypokalemic, IV fluids change D5 1/2 normal saline with KCl. Scheduled KCl BID. WBC count decreasing from 50->26 today. ID following, Dr. Yates. 11/06 Multiple bowel movements overnight. C. difficile antigen obtain negative. Normotensive throughout the night. Specialty bed ordered to prevent skin ulcerations. 11/07 The patient continues to have copious secretions. CPAP trials lasted for hours yesterday. 11/08: Remains orally intubated on mechanical ventilation. Overweight and alert. On C Pap trial. 11/09: Extubated today following C Pap trial. Currently on nasal cannula 11/10 N0 acute events overnight. On 3L oxygen with good sats. Afebrile. Subjective 11/11: Afebrile. Positive BM overnight. A 1.5 L nasal cannula. Arousable and smiles. No abdominal tenderness. Objective Vital Signs Date Time Temp Pulse Resp B/P Pulse Ox O2 Delivery O2 Flow Rate FiO2 11/11/16 07:39 98 21 11/11/16 06:00 91 11/11/16 04:00 98.1 22 103/63 11/10/16 20:39 Nasal Cannula 1.50 Intake and Output 11/10/16 11/10/16 11/11/16 08:00 16:00 00:00 Intake Total 777 ml 702 ml Output Total 700 ml 450 ml Balance 77 ml 252 ml Result Diagram: 11/11/16 0555 11/11/16 0555 Other Results Microbiology Date/Time Procedure Status Source Growth 11/09/16 13:53 Gram Stain - Final Resulted Sputum Endotracheal 11/09/16 13:53 Sputum Culture - Preliminary Resulted Gram Negative Flo Imaging Last Impressions Chest X-Ray 11/07/16 0600 Signed Impressions: Service Date/Time: Monday, November 07, 2016 04:57 - CONCLUSION: No significant change has occurred. Oj Shipley MD Chest CT 11/03/16 0000 Signed Impressions: Service Date/Time: Friday, November 04, 2016 17:34 - CONCLUSION: Compared with October 23 there is new dense consolidation left lower lobe most characteristic of pneumonia or aspiration. Improved airspace disease on the right since prior exam. New small bilateral pleural effusions. Michael Feldman MD Abdomen/Pelvis CT 11/03/16 0000 Signed Impressions: Service Date/Time: Friday, November 04, 2016 17:38 - CONCLUSION: 1. Feeding jejunostomy now present in upper abdomen. Diffuse ileus. No evidence for obstruction. Multiple calcified gallstones. 2. Mild mural thickening of the colon especially distally which may indicate mild colitis. Michael Feldman MD Gastrostomy Tube Change 10/31/16 0000 Signed Impressions: Service Date/Time: Monday, October 31, 2016 15:06 - CONCLUSION: 1. Uncomplicated conversion from gastrostomy to gastrojejunostomy Young Queen MD Abdomen X-Ray 10/28/16 0600 Signed Impressions: Service Date/Time: Friday, October 28, 2016 05:08 - CONCLUSION: Left lower lobe pulmonary consolidation. There are gas-filled dilated bowel loops identified though slightly decreased. Oj Shipley MD CT Angiography 10/23/16 1712 Signed Impressions: Service Date/Time: Sunday, October 23, 2016 19:27 - CONCLUSION: 1. Negative for pulmonary embolus. 2. Diffuse bilateral airspace disease most characteristic of aspiration or pneumonia. 3. Endotracheal tube in satisfactory position. There is some mucoid debris in the airways. 4. Gallstones. Ileus. Scoliosis. Michael Feldman MD Objective Remarks PHYSICAL EXAMINATION GENERAL: 36-year-old male, resting in bed in no acute distress non- communicative HEENT: Atraumatic, normocephalic. PERRL. MMM. NECK: Supple. Right IJ central line has been removed. No active bleeding. No JVD CARDIOVASCULAR EXAM: RRR. Normal S1 and S2. No S4. No murmurs. PULMONARY EXAM: Bilateral equal air entry. Few scattered crackles appreciated right lower lobe. No wheezing ABDOMEN: Soft, non tender. G/J-tube in place. + BS EXTREMITIES: Warm, well perfused. NEUROLOGIC: awake and looking around. does not follow commands, chronically contractured joints. Cerebral palsy. Opens eyes spontaneously Date of Insertion: Nov 03, 2016 Line: Central Venous Catheter Side: Right Location: Internal, Jugular (vasoactive medication) A/P Assessment and Plan Neuro/Psych: Cerebral palsy Seizure disorder Congenital blindness Chronic contractures Currently in Topamax 100 mg twice daily and Dilantin 100 mg twice a day. Recheck Dilantin level in a.m.. History of Dilantin toxicity Seizure precautions Acetaminophen for fever Seizure precautions CV: Lactic acidemia- resolved. History of sinus bradycardia Chronic systolic heart failure History of dyslipidemia Chronic Florinef use Patient is currently in normal sinus rhythm. Off all IV fluids. Not requiring antihypertensives at or vasopressors. Echocardiogram 05/06 revealed EF 4550%. Mild systolic dysfunction. No regional wall motion abnormality. Check lipid panel. Previously on Lipitor 10 mg daily and fish oil On chronic Florinef 0.2 mg daily for hypertension. Resp: Acute hypoxic respiratory failure secondary to aspiration pneumonia/Klebsiella History of tracheostomy status post decannulation Extubated 11/09 Nasal cannula to maintain saturations greater than equal to 92% Incentive spirometry while awake Follow-up chest x-ray in a.m. CTA chest 10/23 revealed no pulmonary embolism but findings consistent with aspiration pneumonia GI: History of gastric ulcer Colonic ileus/resolved Conversion of gastric to GJ tube secondary to intractable nausea and vomiting History of splenectomy Tolerating tube feeding with Jevity 1.5 goal 70 cc an hour. Currently at 30 cc an hour Decrease free water 200 cc every 6 hours Pepcid for GI prophylaxis/history of gastric ulcer MiraLAX as needed for constipation. CT abdomen/pelvis 11/04 revealed cholelithiasis without cholecystitis. GJ tube in correct position. Ileus. : Overactive bladder Placed condom catheter for accurate I's and O's Continue Ditropan 5 mg 3 times a day Endo: Sliding-scale insulin if necessary to maintain euglycemia Renal: Creatinine currently within normal lives. Monitor urine output/accurate I's nose Heme: Microcytic anemia Extreme thrombocytosis Patient with history of splenectomy. Resume aspirin 81 mg daily. Template Storage Clerk has been consulted. Might benefit from a cyto-reductive agent such as hydroxyurea or anagrelide to prevent thrombotic event such as a PE or myocardial infarction or mesenteric ischemia Ferritin normal. Iron low. ESR/CRP pending. Peripheral smear results pending. ID: History of Achromobacter Klebsiella pneumonia Infectious disease following. Currently on Zosyn Vancomycin discontinued 11/09. Pertinent cultures 11/09 - sputum - gram-negative flo 10/24 - sputum - Klebsiella pneumonia 10/23 - blood cultures - 1 out of 2 staph auricularis Negative blood cultures 10/27, 11/04 and 11/06 MSK: Chronic contractures PT evaluate and treat FEN: Hypokalemia Received 40 mEq potassium by GJ tube. Recheck potassium/magnesium in a.m. Access - Utilize peripheral IV. Single-lumen PICC line if indicated Prophylaxis - GI - Pepcid - DVT - heparin subcutaneous Critical Care: The total care time was 35 minutes. Time to perform other separately billable procedures was not included in the critical care time. Kimani Pena MD Nov 11, 2016 07:49 Kimani Pena MD Nov 11, 2016 07:49
[2016-11-11] MEDS: TOPIRAMATE 100 MG TAB GT SCH ×2 (08:49→20:36)
[2016-11-11] MEDS: ASPIRIN 81 MG CHEW TAB CHEW SCH (08:50)
[2016-11-11] MEDS: SENNOSIDES SYRUP 8.8 MG/5 ML CUP PO SCH ×2 (08:50→20:36)
[2016-11-11] MEDS: FAMOTIDINE 20 MG TAB NG SCH ×2 (08:50→20:36)
[2016-11-11] MEDS: FLUDROCORTISONE ACETATE 0.1 MG TAB PO SCH (08:50)
[2016-11-11] MEDS: PHENYTOIN SUSP 100 MG/4 ML CUP PEG SCH ×2 (08:50→20:36)
[2016-11-11 10:00] LABS: PLATELET MORPHOLOGY ENLARGED (NORMAL); SCAN/DIFF AUTO DIFF CONFIRMED
[2016-11-11 10:01] LABS: ACANTHOCYTES OCC (NORMAL); KERATOCYTES OCC (NORMAL); PLATELET ESTIMATE SMEAR HIGH (NORMAL); TARGET CELLS 2+ (NORMAL)
[2016-11-11 12:15] LABS: APTT (PATIENT) 36.9 SEC (24.3-30.1); PROTHROMBIN TIME - PATIENT 10.8 SEC (9.8-11.6)
[2016-11-11] MEDS: POTASSIUM CL 40 MEQ/30 ML LIQ UDC PO/TUBE PRN (12:54)
--- NOTE | 2016-11-11 14:15 | MB ---
cc: KESHIA JETT M.D. DATE OF CONSULTATION: 11/11/2016. REASON FOR CONSULTATION: Elevated platelet count. PATIENT PROFILE: The patient is unable to give me history. He has severe cerebral palsy. He is lying in bed with flexion contractures. He does make eye contact, but there is no verbal communication. HISTORY OF PRESENT ILLNESS: The patient is a 36-year-old male who has a history of cerebral palsy, gastroparesis and multiple abdominal surgeries. He has a PEG-tube. His current admission occurred on 10/23 2016 when he presented to the emergency room with disorientation, grunting, vomiting and an elevated temperature. At that time, he had a CBC and platelet count. Hemoglobin was 9.4, white count was 6700 with platelets of 200,000. By October 30, the platelet count began to rise and it was 494,000. On November 02, it was 888,000, and today the CBC and platelet count are hemoglobin 8.5, white count 8200 and platelets are 1,027,000. His platelet counts have all been normal prior to 10/27/2016. When one looks in at the vital signs, he became febrile on 10/27/2015. He developed a pneumonia. His current and most recent chest x-ray from 11/07/2016 shows bilateral airspace disease. Other studies have included a CT scan of the abdomen and pelvis on 11/04/2016 showing a feeding jejunostomy in the upper abdomen, diffuse ileus, no obstruction. There is mild thickening of the colon, possibly indicative of a mild colitis. He is being treated for a pneumonia and is receiving piperacillin / tazobactam. Other medicines include Dilantin for seizure disorder and he is also taking an aspirin 81 mg a day. He has had no thrombosis. PAST SURGICAL HISTORY: 1. Exploratory laparotomy for bowel obstruction. 2. Placement of either a G-tube or J-tube. 3. Brina fundoplication. 4. Cord surgery at the age of 9. 5. Exploratory laparoscopy for small bowel obstruction. 6. History of splenectomy. PAST MEDICAL HISTORY: 1. History of cerebral palsy with severe retardation. 2. Seizure disorder. 3. Scoliosis. 4. Partial cortical blindness. 5. Pneumonia. 6. 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 CURRENT MEDICATIONS: 1. Topamax. 2. Pepcid. 3. Florinef. 4. Aspirin 81 milligrams a day. 5. Dilantin. 6. Subcutaneous heparin. 7. Piperacillin / tazobactam. ALLERGIES: No known allergies. FAMILY HISTORY: Unobtainable. REVIEW OF SYSTEMS: Unobtainable. PHYSICAL EXAMINATION: GENERAL: The physical exam reveals a chronically ill male lying supine in bed. He is not capable of verbal communication. He does make eye contact. He has severe flexion contractures at the knees, hips, elbows and wrists. He has occasional random movements of the tongue. HEAD, EYES, EARS, NOSE, THROAT: Sclerae are normal. No adenopathy. HEART: Regular rhythm. LUNGS: Clear. ABDOMEN: Abdomen reveals he either has a G tube or a J tube. EXTREMITIES: No edema. MUSCULOSKELETAL: There is severe muscle wasting. NEUROLOGIC: Able to move all extremities. No verbal communication. ASSESSMENT: The patient historically has had a normal platelet count. On 10/30/2016, the platelet count leah to 494,000 and has continued to rise. This is about the time that he developed the pneumonia. The elevated platelet count is due to the pneumonia and / infection. He has a sedimentation rate of 63 consistent with an acute inflammatory response. Elevated platelet counts, which are reactive, are generally not associated with thrombosis and they will return to normal once the inflammatory process has resolved. For the present time, I would recommend only that he continue the aspirin. The elevated platelet count is felt to be reactive. 2. He is noted to be anemic. He has a hemoglobin of 8.5, white count 8200 and platelets 127,000. The MCV is 68. This is suggestive of iron deficiency On 11/10/2016, he had an iron of 40, TIBC of 203, saturation of 19% and a ferritin of 103. In 2008, he had a ferritin of 10. In spite of these numbers, it would not surprise me if he has some degree of iron deficiency. The ferritin certainly does not speak towards iron deficiency but it may be falsely elevated due to his acute inflammatory response. At the moment, this is not the major issue. Once he has recovered, it would be reasonable to give him iron supplementation. MD ROMULO Canales/SUNSHINE /11:49 AM /1:30 PM MTDFabio
[2016-11-11 21:07] LABS: MEAN CORPUSCULAR HGB CONC 29.7 % (32.0-36.0)
[2016-11-12] VITALS (13 sets, daily range): BP systolic 86–112; BP diastolic 56–71; PULSE 64–100; RESP 18–22; TEMP 97.4–99; O2SAT 98–100
[2016-11-12] MEDS: PIPERACIL-TAZO 4.5 GM PREMIX 100 ML IV SCH ×3 (04:00→20:43)
[2016-11-12 05:30] LABS: BASOPHIL # 0.1 TH/MM3 (0-0.2); BASOPHIL % 1.2 % (0.0-2.0); EOSINOPHIL # 0.3 TH/MM3 (0-0.4); EOSINOPHIL % 3.3 % (0.0-4.0); HEMATOCRIT 31.2 % (39.0-51.0); LYMPH % 34.3 % (9.0-44.0); LYMPHOCYTE # 3.2 TH/MM3 (1.0-4.8); MEAN CELL VOLUME 71.1 FL (80.0-100.0); MEAN CORPUSCULAR HEMOGLOBIN 21.1 PG (27.0-34.0); MONO % 6.3 % (0.0-8.0); NEUT % 54.9 % (16.0-70.0); PLATELET COUNT 1009 TH/MM3 (150-450); RED BLOOD COUNT 4.39 MIL/MM3 (4.50-5.90); RED CELL DISTRIBUTION WIDTH 29.8 % (11.6-17.2); WHITE BLOOD COUNT 9.2 TH/MM3 (4.0-11.0)
[2016-11-12 05:32] LABS: HEMO FLAGS AUTO DIFF
[2016-11-12] MEDS: OXYBUTYNIN CHLORIDE 5 MG TAB PO SCH ×3 (06:00→20:43)
--- NOTE | 2016-11-12 06:10 | RADRPT ---
EXAM DATE/TIME: 11/12/2016 05:18 [facility] COMPARISON: CHEST SINGLE AP, November 07, 2016, 4:57. INDICATIONS : Evaluate/follow up pnuemonia. MEDICAL HISTORY : Cardiovascular disease. Cerebral palsy SURGICAL HISTORY : None. ENCOUNTER: Subsequent ACUITY: 2 weeks PAIN SCORE: Non-responsive. LOCATION: Bilateral chest FINDINGS: Infiltrate in the right mid and upper lung and left base again noted, both sides slightly improved in the interim. No large effusion seen. No pneumothorax. Heart size stable, but limits of normal. Endotracheal tube out in the interim. The right IJ line has also been removed. CONCLUSION: Slightly improved bilateral infiltrates as above. Patient has been extubated. Mg Polanco MD on November 12, 2016 at 6:08 Board Certified Radiologist. This report was verified electronically.
[2016-11-12 06:19] LABS: ALKALINE PHOSPHATASE 80 U/L (45-117); ALT (GPT) 13 U/L (12-78); ANION GAP 7 MEQ/L (5-15); AST (GOT) 17 U/L (15-37); BICARBONATE 23.4 MEQ/L (21.0-32.0); BLOOD UREA NITROGEN 6 MG/DL (7-18); CHLORIDE 113 MEQ/L (98-107); GLOMERULAR FILTRATION RATE 202 ML/MIN (>89); HDL CHOLESTEROL 32.2 MG/DL (40.0-60.0); LDL CHOLESTEROL 45 MG/DL (0-99); MAGNESIUM 2.1 MG/DL (1.5-2.5); SODIUM (NA) 143 MEQ/L (136-145); TOTAL BILIRUBIN ADULT LESS THAN 0.1 MG/DL (0.2-1.0)
[2016-11-12 06:29] LABS: CREATINE KINASE 37 U/L (39-308)
[2016-11-12] MEDS: SENNOSIDES SYRUP 8.8 MG/5 ML CUP PO SCH ×2 (08:13→20:44)
[2016-11-12 09:17] LABS: ACANTHOCYTES OCC (NORMAL); TARGET CELLS 1+ (NORMAL)
[2016-11-12 09:18] LABS: PLATELET ESTIMATE SMEAR HIGH (NORMAL); PLATELET MORPHOLOGY NORMAL (NORMAL); SCAN/DIFF AUTO DIFF CONFIRMED
[2016-11-12] MEDS: FLUDROCORTISONE ACETATE 0.1 MG TAB PO SCH (09:45)
[2016-11-12] MEDS: PHENYTOIN SUSP 100 MG/4 ML CUP PEG SCH ×2 (09:46→20:43)
[2016-11-12] MEDS: FAMOTIDINE 20 MG TAB NG SCH ×2 (09:46→20:43)
[2016-11-12] MEDS: ASPIRIN 81 MG CHEW TAB CHEW SCH (09:46)
[2016-11-12] MEDS: HEPARIN SODIUM - SQ 10,000 UNITS/ML VIAL SQ SCH ×4 (09:46→23:34)
[2016-11-12] MEDS: TOPIRAMATE 100 MG TAB GT SCH ×2 (09:46→20:43)
--- NOTE | 2016-11-12 10:17 | HHI.CCPN ---
Subjective Remarks/Hospital Course 10/23: Pneumonia, Respiratory Failure, Severe Sepsis - The patient is a 36-year- old male with a past medical history of cerebral palsy, seizure disorder, mental retardation, previous hospitalization for aspiration pneumonia who presented to [facility] ED after family found him more disoriented than usual and had been vomiting. In the ED the patient was found febrile with temperature of 102.1 rectally, tachycardiac with heart rate in the 130s to 150s and tachypneic. In addition the patient was hypoxemic on non-rebreather and he was subsequently intubated with etomidate, vecuronium and placed on full mechanical ventilation. 10/24: Severe sepsis persists despite broad abx coverage. Urine output improving after aggressive resuscitation. 10/25: GNR in sputum. Continue broad abx coverage pending speciation. Gas exchange improved. 10/26: He remains obstructed with a colon ileus and constipation. Right lung infiltrate persists. Bandemia persists. 10/27: Colon is frighteningly large. Hypokalemia complicating ileus. 10/28: Colon much less distended. Hypokalemia persists despite aggressive replacement. Respiratory failure from pneumonia persists. 10/29: Remains orally intubated on mech ventilation. 10/30: Awake, orally intubated on mechanical ventilation. Hypothermic today. Started on Taryn hugger. Did not tolerate tube feeds overnight. OG tube To suction currently. 10/31: Sedated, easily arousable, orally intubated on mechanical ventilation. GJ tube by IR today 11/01: arousable, still sedated. failing SBT. 11/02: arousable. passed SBT today. still has significant secretions. 11/03: Patient was diuresed yesterday, became hypotensive during the night requiring levophed infusion. Recent was noted have a significant elevation in WBC count. CT scan ordered. 11/04: Patient hypovolemic, central line placed last evening. Levophed continued at 2 mcgs, CVP monitoring initiated. CT scan results pending, repeat cultures obtained. 11/05: Diffuse ileus, no obstruction noted on CT results, calculated actual free phenytoin level 2.18, due to Albumin level 1.4. Increase in laxative stimulants , MiraLAX twice a day senna twice a day, lactulose daily, fleets enema today. Patient continues to be hypokalemic, IV fluids change D5 1/2 normal saline with KCl. Scheduled KCl BID. WBC count decreasing from 50->26 today. ID following, Dr. Yates. 11/06 Multiple bowel movements overnight. C. difficile antigen obtain negative. Normotensive throughout the night. Specialty bed ordered to prevent skin ulcerations. 11/07 The patient continues to have copious secretions. CPAP trials lasted for hours yesterday. 11/08: Remains orally intubated on mechanical ventilation. Overweight and alert. On C Pap trial. 11/09: Extubated today following C Pap trial. Currently on nasal cannula 11/10 N0 acute events overnight. On 3L oxygen with good sats. Afebrile. Subjective 11/11: Afebrile. Positive BM overnight. A 1.5 L nasal cannula. Arousable and smiles. No abdominal tenderness. 11/12: The patient is now on room air O2 saturation 97-98%. Makes good eye contact. Afebrile. Objective Vital Signs Date Time Temp Pulse Resp B/P Pulse Ox O2 Delivery O2 Flow Rate FiO2 11/12/16 08:42 100 21 11/12/16 07:00 Room Air 11/12/16 06:00 76 11/12/16 04:00 97.6 18 112/71 11/10/16 20:39 1.50 Intake and Output 11/11/16 11/11/16 11/12/16 08:00 16:00 00:00 Intake Total 878 ml 648 ml 1025 ml Output Total 800 ml 850 ml 450 ml Balance 78 ml -202 ml 575 ml Result Diagram: 11/12/160 11/12/16 0440 Imaging Last Impressions Chest X-Ray 11/07/16 0600 Signed Impressions: Service Date/Time: Monday, November 07, 2016 04:57 - CONCLUSION: No significant change has occurred. Oj Shipley MD Chest CT 11/03/16 0000 Signed Impressions: Service Date/Time: Friday, November 04, 2016 17:34 - CONCLUSION: Compared with October 23 there is new dense consolidation left lower lobe most characteristic of pneumonia or aspiration. Improved airspace disease on the right since prior exam. New small bilateral pleural effusions. Michael Feldman MD Abdomen/Pelvis CT 11/03/16 0000 Signed Impressions: Service Date/Time: Friday, November 04, 2016 17:38 - CONCLUSION: 1. Feeding jejunostomy now present in upper abdomen. Diffuse ileus. No evidence for obstruction. Multiple calcified gallstones. 2. Mild mural thickening of the colon especially distally which may indicate mild colitis. Michael Feldman MD Gastrostomy Tube Change 10/31/16 0000 Signed Impressions: Service Date/Time: Monday, October 31, 2016 15:06 - CONCLUSION: 1. Uncomplicated conversion from gastrostomy to gastrojejunostomy Young Queen MD Abdomen X-Ray 10/28/16 0600 Signed Impressions: Service Date/Time: Friday, October 28, 2016 05:08 - CONCLUSION: Left lower lobe pulmonary consolidation. There are gas-filled dilated bowel loops identified though slightly decreased. Oj Shipley MD CT Angiography 10/23/16 1712 Signed Impressions: Service Date/Time: Sunday, October 23, 2016 19:27 - CONCLUSION: 1. Negative for pulmonary embolus. 2. Diffuse bilateral airspace disease most characteristic of aspiration or pneumonia. 3. Endotracheal tube in satisfactory position. There is some mucoid debris in the airways. 4. Gallstones. Ileus. Scoliosis. Michael Feldman MD Objective Remarks PHYSICAL EXAMINATION GENERAL: 36-year-old male, resting in bed in no acute distress non- communicative,making eye contact HEENT: Atraumatic, normocephalic. PERRL. MMM. NECK: Supple. No active bleeding. No JVD CARDIOVASCULAR EXAM: RRR. Normal S1 and S2. No S4. No murmurs. PULMONARY EXAM: Bilateral equal air entry. Few scattered crackles appreciated right lower lobe. No wheezing ABDOMEN: Soft, non tender. G/J-tube in place. + BS EXTREMITIES: Warm, well perfused.Flexion contractures NEUROLOGIC: awake and looking around. does not follow commands, chronically contractured joints. Cerebral palsy. Opens eyes spontaneously Urinary Catheter: Yes Watson insert reason: Prolonged Immobilization Vascular Central Line Catheter: No Date of Insertion: Nov 03, 2016 Line: Central Venous Catheter Side: Right Location: Internal, Jugular (vasoactive medication) A/P Assessment and Plan Neuro/Psych: Cerebral palsy Seizure disorder Congenital blindness Chronic contractures Currently in Topamax 100 mg twice daily and Dilantin 100 mg twice a day. History of Dilantin toxicity Seizure precautions Acetaminophen for fever 11/12 Albumin 1.8, Phenytoin 5.9, Corrected Phenytoin level 12.44 ug/ml, Continue to monitor CV: Lactic acidemia- resolved. History of sinus bradycardia Chronic systolic heart failure History of dyslipidemia Chronic Florinef use Patient is currently in normal sinus rhythm. Off all IV fluids. Not requiring antihypertensives at or vasopressors. Echocardiogram 05/06 revealed EF 4550%. Mild systolic dysfunction. No regional wall motion abnormality. Check lipid panel. Previously on Lipitor 10 mg daily and fish oil On chronic Florinef 0.2 mg daily for hypertension. Resp: Acute hypoxic respiratory failure secondary to aspiration pneumonia/Klebsiella, Pseudomonas History of tracheostomy status post decannulation Extubated 11/09 Nasal cannula to maintain saturations greater than equal to 92% Incentive spirometry while awake CTA chest 10/23 revealed no pulmonary embolism but findings consistent with aspiration pneumonia GI: History of gastric ulcer Colonic ileus/resolved Conversion of gastric to GJ tube secondary to intractable nausea and vomiting History of splenectomy Tolerating tube feeding with Jevity 1.5 goal 70 cc an hour. Currently at 30 cc an hour Decrease free water 200 cc every 6 hours Pepcid for GI prophylaxis/history of gastric ulcer MiraLAX as needed for constipation. CT abdomen/pelvis 11/04 revealed cholelithiasis without cholecystitis. GJ tube in correct position. Ileus. : Overactive bladder Placed condom catheter for accurate I's and O's Continue Ditropan 5 mg 3 times a day Endo: Sliding-scale insulin if necessary to maintain euglycemia Renal: Creatinine currently within normal lives. Monitor urine output/accuracy Heme: Microcytic anemia Extreme thrombocytosis Patient with history of splenectomy. Resume aspirin 81 mg daily. Stripper Preliminary has been consulted. Might benefit from a cyto-reductive agent such as hydroxyurea or anagrelide to prevent thrombotic event such as a PE or myocardial infarction or mesenteric ischemia Ferritin normal. Iron low. ESR/CRP pending. Peripheral smear results pending. ID: History of Achromobacter Klebsiella pneumonia Pseudomonas Infectious disease following. Currently on Zosyn Vancomycin discontinued 11/09. Pertinent cultures 11/09 - sputum - gram-negative katya 10/24 - sputum - Klebsiella pneumonia, Pseudomonas 10/23 - blood cultures - 1 out of 2 staph auricularis Negative blood cultures 10/27, 11/04 and 11/06 MSK: Chronic contractures PT evaluate and treat FEN: Hypokalemia Received 40 mEq potassium by GJ tube. Recheck potassium/magnesium in a.m. Access - Utilize peripheral IV's Prophylaxis - GI - Pepcid - DVT - heparin subcutaneous Critical Care: Level 3 Dispo: Plan transfer to hospitalist and med/surg floor Physician Lois Marquez MD Nov 12, 2016 10:17
[2016-11-13] VITALS (14 sets, daily range): BP systolic 98–157; BP diastolic 58–73; PULSE 60–104; RESP 22–25; TEMP 97.4–98.5; O2SAT 98–100
[2016-11-13] MEDS: CHLORHEXIDINE GLUCONATE 2 % 1 PACK (2 CLOTHS) TOP SCH (03:56)
[2016-11-13] MEDS: PIPERACIL-TAZO 4.5 GM PREMIX 100 ML IV SCH ×2 (03:56→12:26)
[2016-11-13 05:33] LABS: HEMATOCRIT 28.2 % (39.0-51.0); MEAN CELL VOLUME 69.6 FL (80.0-100.0); MEAN CORPUSCULAR HEMOGLOBIN 21.3 PG (27.0-34.0); MEAN CORPUSCULAR HGB CONC 30.6 % (32.0-36.0); PLATELET COUNT 949 TH/MM3 (150-450); RED BLOOD COUNT 4.05 MIL/MM3 (4.50-5.90); RED CELL DISTRIBUTION WIDTH 30.2 % (11.6-17.2); WHITE BLOOD COUNT 12.8 TH/MM3 (4.0-11.0)
[2016-11-13] MEDS: OXYBUTYNIN CHLORIDE 5 MG TAB PO SCH ×3 (05:37→21:12)
[2016-11-13 05:41] LABS: REVIEW FLAG FINAL
[2016-11-13 05:57] LABS: BICARBONATE 25.3 MEQ/L (21.0-32.0); MAGNESIUM 1.9 MG/DL (1.5-2.5); POTASSIUM 3.6 MEQ/L (3.5-5.1)
[2016-11-13] MEDS: FAMOTIDINE 20 MG TAB NG SCH ×2 (08:31→21:12)
[2016-11-13] MEDS: FLUDROCORTISONE ACETATE 0.1 MG TAB PO SCH (08:31)
[2016-11-13] MEDS: HEPARIN SODIUM - SQ 10,000 UNITS/ML VIAL SQ SCH ×2 (08:31→16:22)
[2016-11-13] MEDS: PHENYTOIN SUSP 100 MG/4 ML CUP PEG SCH ×2 (08:32→21:11)
[2016-11-13] MEDS: SENNOSIDES SYRUP 8.8 MG/5 ML CUP PO SCH ×2 (08:32→21:00)
[2016-11-13] MEDS: ASPIRIN 81 MG CHEW TAB CHEW SCH (08:32)
[2016-11-13] MEDS: TOPIRAMATE 100 MG TAB GT SCH ×2 (08:32→21:12)
--- NOTE | 2016-11-13 10:48 | HHI.HP ---
History of Present Illness Primary Care Physician Andrew St MD Admission Diagnosis severe sepsis/severe dehydration/hypokalemia Diagnoses: History of Present Illness Mr. Thakur is a 36-year-old male with past medical history significant for cerebral palsy, seizure disorder, mental retardation, previous history of hospitalization for aspiration pneumonia who presented to the [facility] emergency department after his family found him more disoriented than usual and also bouts of vomiting. In the emergency department the patient was found to be febrile with a temperature of 102.1 rectally, tachycardic with heart rate in the 130s and 150s and very tachypneic. In addition the patient was hypoxic on nonrebreather and he was subsequently intubated emergently. His labs significant for lactic acidemia with level of 7.9, hypernatremia with a sodium of 151, hypo-kalemia with K 3.0, creatinine of 1.22 and WBC 6.7. Chest x -ray prior to intubation showed no acute disease. However postextubation there was diffuse infiltrates throughout the right lung. Patient received IV fluids as a part of his resuscitation. Sepsis workup was initiated and patient was started on Zosyn IV as well as azithromycin. Blood cultures done on admission showed coag negative staph and sputum cultures show growth of Klebsiella pneumonia which is pansensitive. OG tube was placed which led to suctioning of another 400+ mL of green bilious fluid. OG tube could not be passed beyond a few centimeters. Infectious disease consulted for evaluation and management of severe sepsis, possible aspiration pneumonia in a patient with cerebral palsy as well as distorted GI anatomy. pt Was obstructed with a colon ileus and constipation. I was called to assume care of the patient today now that he is transferring out of the ICU. Review of Systems ROS Limitations: Clinical Condition, Altered Mental Status, Unresponsive Past Family Social History Allergies: Coded Allergies: No Known Allergies (Unverified , 06/21/16) Past Medical History CP SZ Past Surgical History GT Reported Medications Current Medications Medications (Trade) Dose Ordered Sig/Carlotta Route Start Time Stop Time Status Last Admin (NS Flush) 2 ml UNSCH PRN IVF 10/23/16 17:45 11/07/16 20:30 (Dilantin Liq) 100 mg Q12HR PEG 10/23/16 21:00 11/13/16 08:32 (Topamax) 100 mg BID GT 10/23/16 21:00 11/13/16 08:32 (Florinef) 0.2 mg DAILY PO 10/24/16 09:00 11/13/16 08:31 Miscellaneous Information 1 Q361D XX 10/23/16 18:15 (Chlorhexidine 2% Cloth) 3 pack Taper DAILY@04 TOP 10/24/16 04:00 10/20/17 03:59 11/13/16 03:56 (Chlorhexidine 2% Cloth) 3 pack UNSCH PRN TOP 10/23/16 18:15 Oxybutynin Chloride 5 mg 5 mg Q8HR PO 10/24/16 17:30 11/13/16 05:37 Potassium Chloride 100 ml @ 50 mls/hr Q2H PRN IV 10/26/16 05:15 11/07/16 18:17 (KCl 20 Meq Premix Inj) 100 ml @ 50 mls/hr Q2H PRN IV 10/26/16 05:15 11/05/16 04:48 Potassium Chloride 40 meq 40 meq UNSCH PRN PO/TUBE 10/26/16 05:15 11/11/16 12:54 Potassium Chloride 100 ml @ 25 mls/hr UNSCH PRN IV 10/26/16 05:15 Potassium Chloride 100 ml @ 50 mls/hr Q2H PRN IV 10/26/16 05:15 (Magnesium Sulfate Inj/NS Inj) 100 ml @ 50 mls/hr UNSCH PRN IV 10/26/16 05:15 Magnesium Oxide 800 mg 800 mg UNSCH PRN PO 10/26/16 05:15 (Magnesium Sulfate Inj/NS Inj) 100 ml @ 50 mls/hr UNSCH PRN IV 10/26/16 05:15 11/05/16 10:01 Potassium Phosphate 2000 mg 2,000 mg Q4H PRN PO 10/26/16 05:15 (Sodium Phosphate Inj/NS 250 ml Inj) 250 ml @ 42 mls/hr UNSCH PRN IV 10/26/16 05:15 (KCl 40 Meq/30 ml Liq) 40 meq UNSCH PRN PO/TUBE 10/26/16 05:15 Potassium Phosphate 2000 mg 2,000 mg UNSCH PRN PO/TUBE 10/26/16 05:15 (Potassium Phosphate Inj/NS 250 ml Inj) 260 ml @ 42 mls/hr UNSCH PRN IV 10/26/16 05:15 11/07/16 11:54 (Heparin Inj) 5,000 units Q8H SQ 10/26/16 16:00 11/13/16 08:31 (Fleets Enema (Adult)) 133 ml BID PRN MD 10/26/16 12:30 10/26/16 12:51 (Tylenol 650 Mg/ 20 ml Liq) 650 mg Q4H PRN PEG 10/26/16 15:00 11/02/16 18:46 Famotidine 20 mg 20 mg BID NG 11/02/16 21:00 11/13/16 08:31 (Zosyn 4.5 Gm Premix) 100 ml @ 200 mls/hr Q8H IV 11/03/16 12:00 11/13/16 03:56 (Senna Liq) 8.8 mg BID PO 11/05/16 21:00 11/11/16 20:36 (Aspirin Chew) 81 mg DAILY CHEW 11/11/16 09:00 11/13/16 08:32 Family History NC Social History DISABLED SINCE Physical Exam Vital Signs Vital Signs Date Time Temp Pulse Resp B/P Pulse Ox O2 Delivery O2 Flow Rate FiO2 11/13/16 10:00 103 11/13/16 08:31 100 21 11/13/16 08:00 98.3 100 22 104/73 98 11/13/16 08:00 100 11/13/16 07:00 98 Room Air 11/13/16 06:00 96 11/13/16 04:00 97.9 104 25 157/65 99 11/13/16 04:00 104 11/13/16 02:00 95 11/13/16 00:00 97.4 96 22 108/64 98 11/13/16 00:00 96 11/12/16 22:00 100 11/12/16 20:00 87 11/12/16 20:00 98 Room Air 11/12/16 20:00 99.0 87 21 103/56 98 11/12/16 18:00 94 11/12/16 16:00 97.4 92 20 86/56 100 11/12/16 16:00 92 11/12/16 14:00 84 11/12/16 12:00 97.6 64 22 103/60 99 11/12/16 12:00 64 Physical Exam GENERAL: no apparent distress. SKIN: No rashes, ecchymoses or lesions. Cool and dry. HEAD: Atraumatic. Normocephalic. No temporal or scalp tenderness. EYES: Pupils equal round and reactive. Extraocular motions intact. No scleral icterus. No injection or drainage. ENT: Nose without bleeding, purulent drainage or septal hematoma. Throat without erythema, tonsillar hypertrophy or exudate. Uvula midline. Airway patent. NECK: Trachea midline. No JVD or lymphadenopathy. Supple, nontender, no meningeal signs. CARDIOVASCULAR: Regular rate and rhythm without murmurs, gallops, or rubs. RESPIRATORY: Clear to auscultation. Breath sounds equal bilaterally. No wheezes , rales, or rhonchi. GASTROINTESTINAL: Abdomen soft, non-tender, nondistended. No hepato-splenomegaly , or palpable masses. No guarding. MUSCULOSKELETAL: Extremities without clubbing, cyanosis, or edema. No joint tenderness, effusion, or edema noted. No calf tenderness. Negative Homans sign bilaterally. NEUROLOGICAL: Awake and alert. 1 out of 5 muscle strength in all muscle groups. Laboratory Laboratory Tests Test 11/13/16 04:55 White Blood Count 12.8 Red Blood Count 4.05 Hemoglobin 8.6 Hematocrit 28.2 Mean Corpuscular Volume 69.6 Mean Corpuscular Hemoglobin 21.3 Mean Corpuscular Hemoglobin 30.6 Concent Red Cell Distribution Width 30.2 Platelet Count 949 Mean Platelet Volume 8.0 Sodium Level 142 Potassium Level 3.6 Chloride Level 109 Carbon Dioxide Level 25.3 Anion Gap 8 Blood Urea Nitrogen 7 Creatinine 0.59 Estimat Glomerular Filtration 191 Rate Random Glucose 76 Calcium Level 7.9 Phosphorus Level 2.7 Magnesium Level 1.9 Date/Time Procedure Status Source Growth 11/09/16 13:53 Gram Stain - Final Resulted Sputum Endotracheal 11/09/16 13:53 Sputum Culture - Preliminary Resulted Pseudomonas Aeruginosa Result Diagram: 11/13/16 0455 11/13/16 0455 Imaging Last 72 hours Impressions Chest X-Ray 11/12/16 0600 Signed Impressions: Service Date/Time: Saturday, November 12, 2016 05:18 - CONCLUSION: Slightly improved bilateral infiltrates as above. Patient has been extubated. Mg Polanco MD Assessment and Plan Assessment and Plan Acute hypoxic respiratory failure secondary to aspiration pneumonia/Klebsiella, Pseudomonas. Extubated 11/09 History of tracheostomy status post decannulation. CTA chest 10/23 revealed no pulmonary embolism but findings consistent with aspiration pneumonia Cerebral palsy Seizure disorder Congenital blindness Chronic contractures Lactic acidemia- resolved. History of sinus bradycardia Chronic systolic heart failure. Echocardiogram 05/06 revealed EF 4550%. Mild systolic dysfunction. No regional wall motion abnormality. History of dyslipidemia Chronic Florinef use History of gastric ulcer Colonic ileus/resolved. CT abdomen/pelvis 11/04 revealed cholelithiasis without cholecystitis. GJ tube in correct position. Conversion of gastric to GJ tube secondary to intractable nausea and vomiting History of splenectomy Overactive bladder Microcytic anemia Extreme thrombocytosis Chronic contractures PLAN: IV ABX NC O2 OFF PRESSORS IS SZ PREC Florinef 0.2 mg daily Jevity 1.5 goal 70 cc an hour. free water PGT Pepcid for GI prophylaxis/history of gastric ulcer condom catheter for accurate I's and O's Sliding-scale insulin Patient with history of splenectomy. aspirin 81 mg daily. Mid Level Practitioner consult Peripheral smear results pending. Infectious disease following. PT evaluate and treat heparin subcutaneous Andrew St MD Nov 13, 2016 10:[address] MD Nov 13, 2016 10:48 MiraLAX as needed for constipation. CT abdomen/pelvis 11/04 revealed cholelithiasis without cholecystitis. GJ tube in correct position. : Overactive bladder condom catheter for accurate I's and O's Ditropan 5 mg 3 times a day Endo: Sliding-scale insulin if necessary to maintain euglycemia Renal: Creatinine currently within normal lives. Monitor urine output/accuracy Heme: Microcytic anemia Extreme thrombocytosis Patient with history of splenectomy. Resume aspirin 81 mg daily. Mid Level Practitioner has been consulted. Might benefit from a cyto-reductive agent such as hydroxyurea or anagrelide to prevent thrombotic event such as a PE or myocardial infarction or mesenteric ischemia Ferritin normal. Iron low. ESR/CRP pending. Peripheral smear results pending. ID: History of Achromobacter Klebsiella pneumonia Pseudomonas Infectious disease following. Zosyn Vancomycin discontinued 11/09. Pertinent cultures 11/09 - sputum - gram-negative katya 10/24 - sputum - Klebsiella pneumonia, Pseudomonas 10/23 - blood cultures - 1 out of 2 staph auricularis Negative blood cultures 10/27, 11/04 and 11/06 MSK: Chronic contractures PT evaluate and treat FEN: Hypokalemia Recheck potassium Access - Utilize peripheral IV's Prophylaxis - GI - Pepcid - DVT - heparin subcutaneous Andrew St MD Nov 13, 2016 10:[address] MD Nov 13, 2016 10:48
--- NOTE | 2016-11-13 16:29 | HHI.IDPN ---
Subjective Subjective Remarks Mr. Thakur is a 36-year-old male with past medical history significant for cerebral palsy, seizure disorder, mental retardation, previous history of hospitalization for aspiration pneumonia. Patient now admitted for Aspiration PNA, Sepsis, acute metabolic encephalopathy and Ileus. Notes reviewed D/W RN More alert today, does not follow commands. No rash UO good. Tolerating tube feeds. Not on pressors. Copious diarrhea. Cdiff negative. On Tube feeds. Antibiotics Zosyn IV Lines Line sites with no e/o infection Past Medical History reviewed Allergies: Coded Allergies: No Known Allergies (Unverified , 06/21/16) Objective . Vital Signs Date Time Temp Pulse Resp B/P Pulse Ox O2 Delivery O2 Flow Rate FiO2 11/13/16 14:00 73 11/13/16 12:00 98.2 60 22 98/58 100 11/13/16 12:00 60 11/13/16 10:00 103 11/13/16 08:31 100 21 11/13/16 08:00 98.3 100 22 104/73 98 11/13/16 08:00 100 11/13/16 07:00 98 Room Air 11/13/16 06:00 96 11/13/16 04:00 97.9 104 25 157/65 99 11/13/16 04:00 104 11/13/16 02:00 95 11/13/16 00:00 97.4 96 22 108/64 98 11/13/16 00:00 96 11/12/16 22:00 100 11/12/16 20:00 87 11/12/16 20:00 98 Room Air 11/12/16 20:00 99.0 87 21 103/56 98 11/12/16 18:00 94 11/12/16 11/12/16 11/13/16 15:00 23:00 07:00 Intake Total 947 ml 956 ml 754 ml Output Total 525 ml 200 ml 500 ml Balance 422 ml 756 ml 254 ml IV Total 270 ml 172 ml 169 ml Tube Feeding 527 ml 534 ml 435 ml Other 150 ml 250 ml 150 ml Output Urine Total 525 ml 200 ml 500 ml # Bowel Movements 1 1 3 . Laboratory Tests Test 11/12/16 11/13/16 04:40 04:55 White Blood Count 9.2 TH/MM3 12.8 TH/MM3 Red Blood Count 4.39 MIL/MM3 4.05 MIL/MM3 Hemoglobin 9.3 GM/DL 8.6 GM/DL Hematocrit 31.2 % 28.2 % Mean Corpuscular Volume 71.1 FL 69.6 FL Mean Corpuscular Hemoglobin 21.1 PG 21.3 PG Mean Corpuscular Hemoglobin 29.7 % 30.6 % Concent Red Cell Distribution Width 29.8 % 30.2 % Platelet Count 1009 TH/MM3 949 TH/MM3 Mean Platelet Volume 8.1 FL 8.0 FL Neutrophils (%) (Auto) 54.9 % Lymphocytes (%) (Auto) 34.3 % Monocytes (%) (Auto) 6.3 % Eosinophils (%) (Auto) 3.3 % Basophils (%) (Auto) 1.2 % Neutrophils # (Auto) 5.0 TH/MM3 Lymphocytes # (Auto) 3.2 TH/MM3 Monocytes # (Auto) 0.6 TH/MM3 Eosinophils # (Auto) 0.3 TH/MM3 Basophils # (Auto) 0.1 TH/MM3 CBC Comment AUTO DIFF Differential Comment AUTO DIFF CONFIRMED Platelet Estimate HIGH Platelet Morphology Comment NORMAL Target Cells 1+ Acanthocytes OCC Laboratory Tests Test 11/12/16 11/13/16 04:40 04:55 Sodium Level 143 MEQ/L 142 MEQ/L Potassium Level 4.0 MEQ/L 3.6 MEQ/L Chloride Level 113 MEQ/L 109 MEQ/L Carbon Dioxide Level 23.4 MEQ/L 25.3 MEQ/L Anion Gap 7 MEQ/L 8 MEQ/L Blood Urea Nitrogen 6 MG/DL 7 MG/DL Creatinine 0.56 MG/DL 0.59 MG/DL Estimat Glomerular Filtration 202 ML/MIN 191 ML/MIN Rate Random Glucose 76 MG/DL 76 MG/DL Calcium Level 7.9 MG/DL 7.9 MG/DL Phosphorus Level 2.5 MG/DL 2.7 MG/DL Magnesium Level 2.1 MG/DL 1.9 MG/DL Total Bilirubin LESS THAN 0.1 MG/DL Aspartate Amino Transf 17 U/L (AST/SGOT) Alanine Aminotransferase 13 U/L (ALT/SGPT) Alkaline Phosphatase 80 U/L Total Creatine Kinase 37 U/L Total Protein 7.8 GM/DL Albumin 1.8 GM/DL Triglycerides Level 97 MG/DL Cholesterol Level 97 MG/DL LDL Cholesterol 45 MG/DL HDL Cholesterol 32.2 MG/DL Cholesterol/HDL Ratio 3.01 RATIO Imaging Last Impressions Abdomen X-Ray 10/27/16 0600 Signed Impressions: Service Date/Time: Thursday, October 27, 2016 05:56 - CONCLUSION: Probable ileus pattern. Close clinical and radiographic followup recommended. Oj Shipley MD Chest X-Ray 10/26/16 0000 Signed Impressions: Service Date/Time: October 08:29 - CONCLUSION: Stable endotracheal tube which appears slightly high. Stable airspace consolidation within the right hemithorax. Iesha Murray MD CT Angiography 10/23/16 1712 Signed Impressions: Service Date/Time: Sunday, October 23, 2016 19:27 - CONCLUSION: 1. Negative for pulmonary embolus. 2. Diffuse bilateral airspace disease most characteristic of aspiration or pneumonia. 3. Endotracheal tube in satisfactory position. There is some mucoid debris in the airways. 4. Gallstones. Ileus. Scoliosis. Michael Feldman MD Abdomen/Pelvis CT 10/23/16 1625 Signed Impressions: Service Date/Time: Sunday, October 23, 2016 19:27 - CONCLUSION: 1. Multiple gallstones. Diffuse ileus. Scoliosis with bilateral hip dysplasia. Basilar lung disease. See chest CT. Michael Feldman MD Physical Exam GENERAL: Lethargic on vent. SKIN: No rashes. Warm and dry HEAD: Atraumatic. No temporal or scalp tenderness. EYES: Pupils equal round and reactive. No scleral icterus. No injection or drainage. ENT: Nose without bleeding, purulent drainage or septal hematoma. ET in mouth NECK: Trachea midline. Supple, nontender, no meningeal signs. Scar in neck from previous trach CARDIOVASCULAR: HS audible. RESPIRATORY: Has scattered rhonchi GASTROINTESTINAL: Abdomen soft, distended, non tender, no rebound or rigidity. GJ tube site ok. MUSCULOSKELETAL: Extremities with contractures and deformities. No joint effusion, or edema noted. NEUROLOGICAL: Lethargic. Opens eyes when abdomen examined. Extremities spastic and contracted Psych: could not be assessed. IV line sites with no e/o infection. Assessment & Plan Remarks Sepsis likely secondary to recurrent aspiration pneumonia. Pneumonia present on admission: Aspiration pneumonia appears to be most likely. Although patient lives in the community and would like to rule out community- acquired pneumonia as well as atypical pneumonia. Staph auricularis bacteremia likely contamination Acute metabolic encephalopathy: At baseline patient has cerebral palsy with developmental delay but reportedly there has been a change from baseline. 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 History of Brina fundoplication as well as exploratory laparotomy for small bowel obstruction. Patient is at risk for recurrent aspiration pneumonia due to his history of Brina fundoplication, developmental delay, seizure disorder, scoliosis, distorted GI as well as skeletal anatomy. Recommendations: DC Zosyn IV Observe off antibiotics. Of note patient at risk for recurrent aspiration PNA. D/W RN and Will sign off please call back if any change in clinical condition or questions. Janet Yates MD Nov 13, 2016 16:29
[2016-11-13 21:13] LABS: MEAN CORPUSCULAR HGB CONC 29.7 % (32.0-36.0)
[2016-11-13] MEDS: ACETAMINOPHEN 650 MG/20.3 ML UDC PEG PRN (23:25)
[2016-11-14] VITALS (11 sets, daily range): BP systolic 96–107; BP diastolic 51–65; PULSE 60–107; RESP 17–23; TEMP 96.7–98.2; O2SAT 95–100
[2016-11-14] MEDS: HEPARIN SODIUM - SQ 10,000 UNITS/ML VIAL SQ SCH ×3 (00:40→15:59)
[2016-11-14] MEDS: CHLORHEXIDINE GLUCONATE 2 % 1 PACK (2 CLOTHS) TOP SCH (03:46)
[2016-11-14] MEDS: OXYBUTYNIN CHLORIDE 5 MG TAB PO SCH ×3 (06:13→21:51)
[2016-11-14 06:37] LABS: AUTOMATED NEUTROPHIL # 4.8 TH/MM3 (1.8-7.7); BASOPHIL # 0.2 TH/MM3 (0-0.2); BASOPHIL % 1.9 % (0.0-2.0); EOSINOPHIL # 0.4 TH/MM3 (0-0.4); HEMATOCRIT 29.9 % (39.0-51.0); LYMPH % 34.9 % (9.0-44.0); LYMPHOCYTE # 3.3 TH/MM3 (1.0-4.8); MEAN CELL VOLUME 72.5 FL (80.0-100.0); MEAN CORPUSCULAR HEMOGLOBIN 21.5 PG (27.0-34.0); MONO % 8.1 % (0.0-8.0); NEUT % 51.1 % (16.0-70.0); PLATELET COUNT 859 TH/MM3 (150-450); RED BLOOD COUNT 4.12 MIL/MM3 (4.50-5.90); RED CELL DISTRIBUTION WIDTH 30.4 % (11.6-17.2); WHITE BLOOD COUNT 9.4 TH/MM3 (4.0-11.0)
[2016-11-14 06:40] LABS: HEMO FLAGS AUTO DIFF
[2016-11-14 06:49] LABS: BICARBONATE 24.7 MEQ/L (21.0-32.0); POTASSIUM 3.8 MEQ/L (3.5-5.1)
[2016-11-14 07:35] LABS: PLATELET ESTIMATE SMEAR HIGH (NORMAL); PLATELET MORPHOLOGY NORMAL (NORMAL); SCAN/DIFF AUTO DIFF CONFIRMED
[2016-11-14 07:36] LABS: SPHEROCYTES OCC (NORMAL); TARGET CELLS 2+ (NORMAL)
[2016-11-14] MEDS: PHENYTOIN SUSP 100 MG/4 ML CUP PEG SCH ×2 (08:17→21:51)
[2016-11-14] MEDS: TOPIRAMATE 100 MG TAB GT SCH ×2 (08:17→21:51)
[2016-11-14] MEDS: FAMOTIDINE 20 MG TAB NG SCH ×2 (08:17→21:51)
[2016-11-14] MEDS: SENNOSIDES SYRUP 8.8 MG/5 ML CUP PO SCH ×2 (08:17→21:00)
[2016-11-14] MEDS: ASPIRIN 81 MG CHEW TAB CHEW SCH (08:17)
[2016-11-14] MEDS: FLUDROCORTISONE ACETATE 0.1 MG TAB PO SCH (08:18)
--- NOTE | 2016-11-14 09:50 | HHI.FPPN ---
Subjective Remarks APPEARS TO BE AT BASELINE ALMOST D/W RN Objective Vitals Vital Signs Date Time Temp Pulse Resp B/P Pulse Ox O2 Delivery O2 Flow Rate FiO2 11/14/16 08:17 99 21 11/14/16 07:00 100 Room Air 11/14/16 06:00 98 11/14/16 04:00 97.9 90 19 100/58 97 11/14/16 04:00 90 11/14/16 02:00 104 11/14/16 00:00 98.2 96 22 99/57 97 11/14/16 00:00 96 11/13/16 22:00 96 11/13/16 20:41 100 21 11/13/16 20:00 99 Room Air 11/13/16 20:00 98.1 86 22 99/63 99 11/13/16 20:00 86 11/13/16 18:00 76 11/13/16 16:00 92 11/13/16 16:00 98.5 92 24 110/69 100 11/13/16 14:00 73 11/13/16 12:00 98.2 60 22 98/58 100 11/13/16 12:00 60 11/13/16 10:00 103 I/O 11/13/16 11/13/16 11/13/16 11/14/16 11/14/16 11/14/16 07:00 15:00 23:00 07:00 15:00 23:00 Intake Total 754 ml 720 ml 610 ml 687 ml Output Total 500 ml 575 ml 350 ml 475 ml Balance 254 ml 145 ml 260 ml 212 ml IV Total 169 ml 110 ml 0 ml Tube Feeding 435 ml 480 ml 490 ml 487 ml Tube Irrigant 100 ml Other 150 ml 130 ml 120 ml 100 ml Output Urine Total 500 ml 575 ml 350 ml 475 ml # Bowel Movements 3 4 1 0 Result Diagram: 11/14/1610 11/14/1610 Objective Remarks GENERAL: SKIN: Warm and dry. HEAD: Atraumatic. Normocephalic. EYES: Pupils equal and round. No scleral icterus. No injection or drainage. ENT: No nasal bleeding or discharge. Mucous membranes pink and moist. NECK: Trachea midline. No JVD. CARDIOVASCULAR: Regular rate and rhythm. RESPIRATORY: No accessory muscle use. Clear to auscultation. Breath sounds equal bilaterally. GASTROINTESTINAL: Abdomen soft, non-tender, nondistended. Hepatic and splenic margins not palpable. MUSCULOSKELETAL: Extremities without clubbing, cyanosis, or edema. No obvious deformities. NEUROLOGICAL: Awake and alert. No obvious cranial nerve deficits. Motor grossly within normal limits. 1 out of 5 muscle strength in the arms and legs. Aphasic. PSYCHIATRIC: Agitated when examined, otherwise remains calm and encephalopathic Date of Insertion: Nov 03, 2016 Line: Central Venous Catheter Side: Right Location: Internal, Jugular (vasoactive medication) A/P Assessment and Plan Acute hypoxic respiratory failure secondary to aspiration pneumonia/Klebsiella, Pseudomonas. Extubated 11/09 History of tracheostomy status post decannulation. CTA chest 10/23 revealed no pulmonary embolism but findings consistent with aspiration pneumonia Cerebral palsy Seizure disorder Congenital blindness Chronic contractures Lactic acidemia- resolved. History of sinus bradycardia Chronic systolic heart failure. Echocardiogram 05/06 revealed EF 4550%. Mild systolic dysfunction. No regional wall motion abnormality. History of dyslipidemia Chronic Florinef use History of gastric ulcer Colonic ileus/resolved. CT abdomen/pelvis 11/04 revealed cholelithiasis without cholecystitis. GJ tube in correct position. Conversion of gastric to GJ tube secondary to intractable nausea and vomiting History of splenectomy Overactive bladder Microcytic anemia Extreme thrombocytosis Chronic contractures PLAN: OFF IV ABX NC O2 prn OFF PRESSORS IS SZ PREC Florinef 0.2 mg daily Jevity 1.5 goal 70 cc an hour. free water PGT Pepcid for GI prophylaxis/history of gastric ulcer condom catheter for accurate I's and O's Sliding-scale insulin Patient with history of splenectomy. aspirin 81 mg daily. Sandblast Or Shotblast Equipment Tender consult Peripheral smear results pending. Infectious disease signed off. PT evaluate and treat heparin subcutaneous Andrew St MD Nov 14, 2016 09:50
[2016-11-15] VITALS (8 sets, daily range): BP systolic 89–108; BP diastolic 54–59; PULSE 110–116; RESP 18–22; TEMP 96.1–98.6; O2SAT 97–98
[2016-11-15] MEDS: HEPARIN SODIUM - SQ 10,000 UNITS/ML VIAL SQ SCH ×3 (01:01→14:53)
[2016-11-15] MEDS: CHLORHEXIDINE GLUCONATE 2 % 1 PACK (2 CLOTHS) TOP SCH (04:00)
[2016-11-15] MEDS: OXYBUTYNIN CHLORIDE 5 MG TAB PO SCH ×3 (06:41→22:02)
[2016-11-15] MEDS: ASPIRIN 81 MG CHEW TAB CHEW SCH (08:14)
[2016-11-15] MEDS: FLUDROCORTISONE ACETATE 0.1 MG TAB PO SCH (08:15)
[2016-11-15] MEDS: FAMOTIDINE 20 MG TAB NG SCH ×2 (08:15→22:02)
[2016-11-15] MEDS: TOPIRAMATE 100 MG TAB GT SCH ×2 (08:15→22:02)
[2016-11-15] MEDS: SENNOSIDES SYRUP 8.8 MG/5 ML CUP PO SCH ×2 (08:16→22:02)
[2016-11-15] MEDS: PHENYTOIN SUSP 100 MG/4 ML CUP PEG SCH ×2 (08:16→22:02)
[2016-11-15 08:24] LABS: HEMATOCRIT 31.4 % (39.0-51.0); MEAN CELL VOLUME 72.4 FL (80.0-100.0); MEAN CORPUSCULAR HEMOGLOBIN 21.8 PG (27.0-34.0); MEAN CORPUSCULAR HGB CONC 30.2 % (32.0-36.0); PLATELET COUNT 812 TH/MM3 (150-450); RED BLOOD COUNT 4.34 MIL/MM3 (4.50-5.90); RED CELL DISTRIBUTION WIDTH 31.3 % (11.6-17.2); WHITE BLOOD COUNT 14.3 TH/MM3 (4.0-11.0)
[2016-11-15 08:32] LABS: HEMO FLAGS AUTO DIFF
[2016-11-15 08:45] LABS: BICARBONATE 25.6 MEQ/L (21.0-32.0); POTASSIUM 3.8 MEQ/L (3.5-5.1)
--- NOTE | 2016-11-15 08:54 | HHI.FPPN ---
Subjective Remarks ALERT CALM SLEEPING YET AROUSES TO VOICE APPEARS TO BE AT BASELINE D/W RN Objective Vitals Vital Signs Date Time Temp Pulse Resp B/P Pulse Ox O2 Delivery O2 Flow Rate FiO2 11/15/16 08:31 97.4 112 22 96/54 97 11/15/16 08:28 98 Room Air 11/15/16 04:17 97.2 116 20 94/54 98 11/15/16 00:26 98.6 113 22 96/55 98 11/14/16 20:46 96.7 107 18 96/51 99 11/14/16 19:30 99 Room Air 11/14/16 16:00 66 11/14/16 16:00 97.9 66 17 100/65 95 11/14/16 14:00 60 11/14/16 12:00 84 11/14/16 12:00 97.8 84 23 107/59 100 11/14/16 10:00 64 I/O 11/14/16 11/14/16 11/14/16 11/15/16 11/15/16 11/15/16 07:00 15:00 23:00 07:00 15:00 23:00 Intake Total 687 ml 783 ml 1060 ml Output Total 475 ml 425 ml 300 ml 150 ml Balance 212 ml 358 ml -300 ml 910 ml IV Total 0 ml 0 ml Tube Feeding 487 ml 583 ml 860 ml Tube Irrigant 100 ml Other 100 ml 200 ml 200 ml Output Urine Total 475 ml 425 ml 300 ml 150 ml # Bowel Movements 0 2 2 Result Diagram: 11/14/16 0610 11/14/16 0610 Objective Remarks GENERAL: SKIN: Warm and dry. HEAD: Atraumatic. Normocephalic. EYES: Pupils equal and round. No scleral icterus. No injection or drainage. ENT: No nasal bleeding or discharge. Mucous membranes pink and moist. NECK: Trachea midline. No JVD. CARDIOVASCULAR: Regular rate and rhythm. RESPIRATORY: No accessory muscle use. Breath sounds equal bilaterally. b rales and ronchi. GASTROINTESTINAL: Abdomen soft, non-tender, nondistended. Hepatic and splenic margins not palpable. MUSCULOSKELETAL: Extremities without clubbing, cyanosis, or edema. Contracted extremities NEUROLOGICAL: Awake and alert. No obvious cranial nerve deficits. Motor grossly within normal limits. 1 out of 5 muscle strength in the arms and legs. Aphasic. PSYCHIATRIC: Agitated when examined, otherwise remains calm and encephalopathic Urinary Catheter: Yes Watson insert reason: Prolonged Immobilization Vascular Central Line Catheter: Yes Assessment to: Continue Date of Insertion: Nov 03, 2016 Line: Central Venous Catheter Side: Right Location: Internal, Jugular (vasoactive medication) A/P Assessment and Plan Acute hypoxic respiratory failure secondary to aspiration pneumonia/Klebsiella, Pseudomonas. Extubated 11/09 History of tracheostomy status post decannulation. CTA chest 10/23 revealed no pulmonary embolism but findings consistent with aspiration pneumonia Cerebral palsy Seizure disorder Congenital blindness Chronic contractures Lactic acidemia- resolved. History of sinus bradycardia Chronic systolic heart failure. Echocardiogram 05/06 revealed EF 4550%. Mild systolic dysfunction. No regional wall motion abnormality. History of dyslipidemia Chronic Florinef use History of gastric ulcer Colonic ileus/resolved. CT abdomen/pelvis 11/04 revealed cholelithiasis without cholecystitis. GJ tube in correct position. Conversion of gastric to GJ tube secondary to intractable nausea and vomiting History of splenectomy Overactive bladder Microcytic anemia Thrombocytosis, reactive due to PNA Chronic contractures PLAN: OFF IV ABX NC O2 prn OFF PRESSORS IS SZ PREC Florinef 0.2 mg daily Jevity 1.5 goal 70 cc an hour. free water PGT Pepcid for GI prophylaxis/history of gastric ulcer condom catheter for accurate I's and O's Sliding-scale insulin Patient with history of splenectomy. aspirin 81 mg daily. Hatchery Supervisor consult Peripheral smear results pending. Infectious disease signed off. PT evaluate and treat heparin subcutaneous Andrew St MD Nov 15, 2016 08:54
[2016-11-15 10:23] LABS: BASOPHILS 1 % (0-2); CORRECTED NUCLEATED RBC 1 /100 WBC (0-0); EOSINOPHILS 2 % (0-4); NEUTROPHIL # MANUAL DIFF 11.2 TH/MM3 (1.8-7.7); POLYS (SEG NEUTROPHILS) 78 % (16-70); WBC DIFF SAMPLE 100
[2016-11-15 10:24] LABS: PLATELET ESTIMATE SMEAR HIGH (NORMAL); SCAN/DIFF FINAL DIFF MANUAL; TARGET CELLS 2+ (NORMAL)
[2016-11-15 10:25] LABS: ACANTHOCYTES OCC (NORMAL); KERATOCYTES OCC (NORMAL); PLATELET MORPHOLOGY NORMAL (NORMAL)
[2016-11-16 00:19] VITALS: BP 105/61; PULSE 111; RESP 22; TEMP 97.2; O2SAT 95
[2016-11-16] MEDS: HEPARIN SODIUM - SQ 10,000 UNITS/ML VIAL SQ SCH ×3 (00:28→17:24)
[2016-11-16] MEDS: CHLORHEXIDINE GLUCONATE 2 % 1 PACK (2 CLOTHS) TOP SCH (04:00)
[2016-11-16 04:45] VITALS: BP 98/62; PULSE 106; RESP 20; TEMP 97.7; O2SAT 97
[2016-11-16] MEDS: OXYBUTYNIN CHLORIDE 5 MG TAB PO SCH ×3 (05:18→21:42)
[2016-11-16 07:40] LABS: MEAN CELL VOLUME 71.6 FL (80.0-100.0); MEAN CORPUSCULAR HEMOGLOBIN 21.7 PG (27.0-34.0); MEAN CORPUSCULAR HGB CONC 30.3 % (32.0-36.0); PLATELET COUNT 789 TH/MM3 (150-450); WHITE BLOOD COUNT 11.3 TH/MM3 (4.0-11.0)
[2016-11-16 07:43] LABS: HEMO FLAGS AUTO DIFF
[2016-11-16 07:47] LABS: BICARBONATE 25.5 MEQ/L (21.0-32.0); POTASSIUM 3.8 MEQ/L (3.5-5.1)
[2016-11-16 07:54] VITALS: BP 147/89; PULSE 118; RESP 18; TEMP 99.3; O2SAT 97
[2016-11-16 08:31] LABS: BASOPHILS 2 % (0-2); CORRECTED NUCLEATED RBC 1 /100 WBC (0-0); EOSINOPHILS 2 % (0-4); NEUTROPHIL # MANUAL DIFF 6.8 TH/MM3 (1.8-7.7); POLYS (SEG NEUTROPHILS) 60 % (16-70); WBC DIFF SAMPLE 100
[2016-11-16 08:32] LABS: PLATELET ESTIMATE SMEAR HIGH (NORMAL); PLATELET MORPHOLOGY NORMAL (NORMAL); SCAN/DIFF FINAL DIFF MANUAL
[2016-11-16 08:33] LABS: SPHEROCYTES OCC (NORMAL); TARGET CELLS 2+ (NORMAL)
[2016-11-16] MEDS: PHENYTOIN SUSP 100 MG/4 ML CUP PEG SCH ×2 (08:55→21:42)
[2016-11-16] MEDS: ASPIRIN 81 MG CHEW TAB CHEW SCH (08:55)
[2016-11-16] MEDS: SENNOSIDES SYRUP 8.8 MG/5 ML CUP PO SCH ×2 (08:55→21:42)
[2016-11-16] MEDS: TOPIRAMATE 100 MG TAB GT SCH ×2 (08:55→21:42)
[2016-11-16] MEDS: FAMOTIDINE 20 MG TAB NG SCH ×2 (08:55→21:42)
[2016-11-16] MEDS: FLUDROCORTISONE ACETATE 0.1 MG TAB PO SCH (08:55)
[2016-11-16 11:25] VITALS: BP 101/55; PULSE 113; RESP 18; TEMP 99; O2SAT 100
--- NOTE | 2016-11-16 12:20 | HHI.FPPN ---
Subjective Remarks CALM AGITATED WHEN EXAMINED D/W RN Objective Vitals Vital Signs Date Time Temp Pulse Resp B/P Pulse Ox O2 Delivery O2 Flow Rate FiO2 11/16/16 11:25 99.0 113 18 101/55 100 11/16/16 07:54 99.3 118 18 147/89 97 11/16/16 04:45 97.7 106 20 98/62 97 11/16/16 00:19 97.2 111 22 105/61 95 11/15/16 20:00 Room Air 11/15/16 19:30 97.8 111 22 89/59 97 11/15/16 18:33 97 21 11/15/16 16:30 96.1 116 22 108/59 97 11/15/16 14:14 97 11/15/16 12:25 97.1 110 18 97/54 98 I/O 11/15/16 11/15/16 11/15/16 11/16/16 11/16/16 11/16/16 07:00 15:00 23:00 07:00 15:00 23:00 Intake Total 1060 ml 478 ml 322 ml Output Total 150 ml 475 ml 200 ml 600 ml Balance 910 ml -475 ml 278 ml -278 ml Tube Feeding 860 ml 478 ml 322 ml Other 200 ml Output Urine Total 150 ml 475 ml 200 ml 600 ml Result Diagram: 11/16/1662911/16/16629 Objective Remarks GENERAL: SKIN: Warm and dry. HEAD: Atraumatic. Normocephalic. EYES: Pupils equal and round. No scleral icterus. No injection or drainage. ENT: No nasal bleeding or discharge. Mucous membranes pink and moist. NECK: Trachea midline. No JVD. CARDIOVASCULAR: Regular rate and rhythm. RESPIRATORY: No accessory muscle use. Breath sounds equal bilaterally. b rales and ronchi. GASTROINTESTINAL: Abdomen soft, non-tender, nondistended. Hepatic and splenic margins not palpable. MUSCULOSKELETAL: Extremities without clubbing, cyanosis, or edema. Contracted extremities NEUROLOGICAL: Awake and alert. No obvious cranial nerve deficits. Motor grossly within normal limits. 1 out of 5 muscle strength in the arms and legs. Aphasic. PSYCHIATRIC: Agitated when examined, otherwise remains calm and encephalopathic Medications and IVs Current Medications Medications (Trade) Dose Ordered Sig/Carlotta Route Start Time Stop Time Status Last Admin (NS Flush) 2 ml UNSCH PRN IVF 10/23/16 17:45 11/07/16 20:30 (Dilantin Liq) 100 mg Q12HR PEG 10/23/16 21:00 11/16/16 08:55 (Topamax) 100 mg BID GT 10/23/16 21:00 11/16/16 08:55 (Florinef) 0.2 mg DAILY PO 10/24/16 09:00 11/16/16 08:55 Miscellaneous Information 1 Q361D XX 10/23/16 18:15 (Chlorhexidine 2% Cloth) 3 pack Taper DAILY@04 TOP 10/24/16 04:00 10/20/17 03:59 11/15/16 04:00 (Chlorhexidine 2% Cloth) 3 pack UNSCH PRN TOP 10/23/16 18:15 (Ditropan) 5 mg Q8HR PO 10/24/16 17:30 11/16/16 05:18 (Heparin Inj) 5,000 units Q8H SQ 10/26/16 16:00 11/16/16 09:47 (Fleets Enema (Adult)) 133 ml BID PRN IN 10/26/16 12:30 10/26/16 12:51 (Tylenol 650 Mg/ 20 ml Liq) 650 mg Q4H PRN PEG 10/26/16 15:00 11/13/16 23:25 (Pepcid) 20 mg BID NG 11/02/16 21:00 11/16/16 08:55 (Senna Liq) 8.8 mg BID PO 11/05/16 21:00 11/16/16 08:55 (Aspirin Chew) 81 mg DAILY CHEW 11/11/16 09:00 11/16/16 08:55 Date of Insertion: Nov 03, 2016 Line: Central Venous Catheter Side: Right Location: Internal, Jugular (vasoactive medication) A/P Assessment and Plan Acute hypoxic respiratory failure secondary to aspiration pneumonia/Klebsiella, Pseudomonas. Extubated 11/09 History of tracheostomy status post decannulation. CTA chest 10/23 revealed no pulmonary embolism but findings consistent with aspiration pneumonia Cerebral palsy Seizure disorder Congenital blindness Chronic contractures Lactic acidemia- resolved. History of sinus bradycardia Chronic systolic heart failure. Echocardiogram 05/06 revealed EF 4550%. Mild systolic dysfunction. No regional wall motion abnormality. History of dyslipidemia Chronic Florinef use History of gastric ulcer Colonic ileus/resolved. CT abdomen/pelvis 11/04 revealed cholelithiasis without cholecystitis. GJ tube in correct position. Conversion of gastric to GJ tube secondary to intractable nausea and vomiting History of splenectomy Overactive bladder Microcytic anemia Thrombocytosis, reactive due to PNA Chronic contractures PLAN: OFF IV ABX NC O2 prn OFF PRESSORS CARDIOLOGY CONSULT FOR TACHYCARDIA IS SZ PREC Florinef 0.2 mg daily Jevity 1.5 goal 70 cc an hour. free water PGT Pepcid for GI prophylaxis/history of gastric ulcer condom catheter for accurate I's and O's Sliding-scale insulin Patient with history of splenectomy. aspirin 81 mg daily. Heat Treat Supervisor consult Peripheral smear results pending. Infectious disease signed off. PT evaluate and treat heparin subcutaneous Andrew St MD Nov 16, 2016 12:20
[2016-11-16 15:48] VITALS: BP 99/60; PULSE 101; RESP 19; TEMP 99.4; O2SAT 100
[2016-11-16 20:00] VITALS: BP 99/60; PULSE 115; RESP 18; TEMP 99; O2SAT 94
[2016-11-16] MEDS: SODIUM CHLORIDE 0.9% FLUSH 5 ML FLUSH IVF PRN (21:42)
[2016-11-17] VITALS (8 sets, daily range): BP systolic 90–133; BP diastolic 55–80; PULSE 84–116; RESP 18–20; TEMP 96.6–100; O2SAT 94–99
[2016-11-17] MEDS: HEPARIN SODIUM - SQ 10,000 UNITS/ML VIAL SQ SCH ×3 (00:23→16:59)
[2016-11-17] MEDS: ACETAMINOPHEN 650 MG/20.3 ML UDC PEG PRN (00:30)
[2016-11-17] MEDS: CHLORHEXIDINE GLUCONATE 2 % 1 PACK (2 CLOTHS) TOP SCH (04:00)
[2016-11-17] MEDS: OXYBUTYNIN CHLORIDE 5 MG TAB PO SCH ×2 (06:00→14:00)
[2016-11-17] MEDS: SENNOSIDES SYRUP 8.8 MG/5 ML CUP PO SCH ×2 (09:00→09:39)
[2016-11-17] MEDS: TOPIRAMATE 100 MG TAB GT SCH (09:38)
[2016-11-17] MEDS: FAMOTIDINE 20 MG TAB NG SCH (09:38)
[2016-11-17] MEDS: ASPIRIN 81 MG CHEW TAB CHEW SCH (09:38)
[2016-11-17] MEDS: PHENYTOIN SUSP 100 MG/4 ML CUP PEG SCH (09:39)
[2016-11-17] MEDS: FLUDROCORTISONE ACETATE 0.1 MG TAB PO SCH (09:39)
--- NOTE | 2016-11-17 09:59 | HHI.FPPN ---
Subjective Remarks SPIKED FEVER DIARRHEA D/W RN Objective Vitals Vital Signs Date Time Temp Pulse Resp B/P Pulse Ox O2 Delivery O2 Flow Rate FiO2 11/17/16 08:47 96.7 109 20 95/55 96 11/17/16 04:00 97.8 84 18 90/62 99 11/17/16 01:30 18 11/17/16 01:30 98.7 11/17/16 00:30 100.0 11/17/16 00:00 98.7 90 18 97/58 94 11/16/16 20:00 99.0 115 18 99/60 94 11/16/16 15:48 99.4 101 19 99/60 100 11/16/16 11:25 99.0 113 18 101/55 100 I/O 11/16/16 11/16/16 11/16/16 11/17/16 11/17/16 11/17/16 07:00 15:00 23:00 07:00 15:00 23:00 Intake Total 322 ml 300 ml 200 ml Output Total 600 ml 600 ml 300 ml 400 ml Balance -278 ml -600 ml 0 ml -200 ml IV Total 0 ml Tube Feeding 322 ml 0 ml 200 ml Other 300 ml Output Urine Total 600 ml 600 ml 300 ml 400 ml # Bowel Movements 5 1 Result Diagram: 11/16/1662911/16/16629 Objective Remarks GENERAL: SKIN: Warm and dry. HEAD: Atraumatic. Normocephalic. EYES: Pupils equal and round. No scleral icterus. No injection or drainage. ENT: No nasal bleeding or discharge. Mucous membranes pink and moist. NECK: Trachea midline. No JVD. CARDIOVASCULAR: Regular rate and rhythm. RESPIRATORY: No accessory muscle use. Breath sounds equal bilaterally. b rales and ronchi. GASTROINTESTINAL: Abdomen soft, non-tender, nondistended. Hepatic and splenic margins not palpable. MUSCULOSKELETAL: Extremities without clubbing, cyanosis, or edema. Contracted extremities NEUROLOGICAL: Awake and alert. No obvious cranial nerve deficits. Motor grossly within normal limits. 1 out of 5 muscle strength in the arms and legs. Aphasic. PSYCHIATRIC: Agitated when examined, otherwise remains calm and encephalopathic Medications and IVs Current Medications Medications (Trade) Dose Ordered Sig/Carlotta Route Start Time Stop Time Status Last Admin (NS Flush) 2 ml UNSCH PRN IVF 10/23/16 17:45 11/16/16 21:42 (Dilantin Liq) 100 mg Q12HR PEG 10/23/16 21:00 11/17/16 09:39 (Topamax) 100 mg BID GT 10/23/16 21:00 11/17/16 09:38 (Florinef) 0.2 mg DAILY PO 10/24/16 09:00 11/17/16 09:39 Miscellaneous Information 1 Q361D XX 10/23/16 18:15 (Chlorhexidine 2% Cloth) Taper DAILY@04 TOP 10/24/16 04:00 10/20/17 03:59 11/17/16 04:00 (Chlorhexidine 2% Cloth) 3 pack UNSCH PRN TOP 10/23/16 18:15 (Ditropan) 5 mg Q8HR PO 10/24/16 17:30 11/17/16 06:00 (Heparin Inj) 5,000 units Q8H SQ 10/26/16 16:00 11/17/16 09:37 (Fleets Enema (Adult)) 133 ml BID PRN FL 10/26/16 12:30 10/26/16 12:51 (Tylenol 650 Mg/ 20 ml Liq) 650 mg Q4H PRN PEG 10/26/16 15:00 11/17/16 00:30 (Pepcid) 20 mg BID NG 11/02/16 21:00 11/17/16 09:38 (Senna Liq) 8.8 mg BID PO 11/05/16 21:00 11/16/16 21:42 (Aspirin Chew) 81 mg DAILY CHEW 11/11/16 09:00 11/17/16 09:38 Date of Insertion: Nov 03, 2016 Line: Central Venous Catheter Side: Right Location: Internal, Jugular (vasoactive medication) A/P Assessment and Plan SEPSIS Acute hypoxic respiratory failure secondary to aspiration pneumonia/Klebsiella, Pseudomonas. Extubated 11/09 History of tracheostomy status post decannulation. CTA chest 10/23 revealed no pulmonary embolism but findings consistent with aspiration pneumonia Cerebral palsy Seizure disorder Congenital blindness Chronic contractures Lactic acidemia- resolved. History of sinus bradycardia Chronic systolic heart failure. Echocardiogram 05/06 revealed EF 4550%. Mild systolic dysfunction. No regional wall motion abnormality. History of dyslipidemia Chronic Florinef use History of gastric ulcer Colonic ileus/resolved. CT abdomen/pelvis 11/04 revealed cholelithiasis without cholecystitis. GJ tube in correct position. Conversion of gastric to GJ tube secondary to intractable nausea and vomiting History of splenectomy Overactive bladder Microcytic anemia Thrombocytosis, reactive due to PNA Chronic contractures PLAN: RESTART IV LEVAQUIN CXR BLOOD CULTURES LACTIC LEVEL STAT LABS NOW AM LABS NC O2 prn OFF PRESSORS CARDIOLOGY CONSULT FOR TACHYCARDIA IS SZ PREC Florinef 0.2 mg daily Jevity 1.5 goal 70 cc an hour. free water PGT Pepcid for GI prophylaxis/history of gastric ulcer condom catheter for accurate I's and O's Sliding-scale insulin Patient with history of splenectomy. aspirin 81 mg daily. Peripheral smear results pending. Infectious disease consult PT evaluate and treat heparin subcutaneous Andrew St MD Nov 17, 2016 09:59
[2016-11-17 11:02] LABS: HEMATOCRIT 32.1 % (39.0-51.0); HEMO FLAGS AUTO DIFF; MEAN CELL VOLUME 72.6 FL (80.0-100.0); MEAN CORPUSCULAR HEMOGLOBIN 21.8 PG (27.0-34.0); MEAN CORPUSCULAR HGB CONC 30.1 % (32.0-36.0); PLATELET COUNT 744 TH/MM3 (150-450); RED BLOOD COUNT 4.42 MIL/MM3 (4.50-5.90); RED CELL DISTRIBUTION WIDTH 31.6 % (11.6-17.2); WHITE BLOOD COUNT 14.6 TH/MM3 (4.0-11.0)
[2016-11-17 11:22] LABS: BICARBONATE 22.3 MEQ/L (21.0-32.0); POTASSIUM 4.2 MEQ/L (3.5-5.1)
[2016-11-17 11:41] LABS: BANDS 3 % (0-6); CORRECTED NUCLEATED RBC 1 /100 WBC (0-0); EOSINOPHILS 3 % (0-4); NEUTROPHIL # MANUAL DIFF 9.5 TH/MM3 (1.8-7.7); POLYS (SEG NEUTROPHILS) 62 % (16-70); TARGET CELLS 2+ (NORMAL); WBC DIFF SAMPLE 100
[2016-11-17 11:43] LABS: KERATOCYTES OCC (NORMAL); PLATELET ESTIMATE SMEAR HIGH (NORMAL); PLATELET MORPHOLOGY NORMAL (NORMAL); SCAN/DIFF FINAL DIFF MANUAL
[2016-11-17] MEDS: LEVOFLOXACIN 750 MG PREMIX INJ 150 ML IV SCH (12:59)
--- NOTE | 2016-11-17 14:36 | RADRPT ---
EXAM DATE/TIME: 11/17/2016 13:54 [facility] COMPARISON: No previous studies available for comparison. INDICATIONS : Fever. MEDICAL HISTORY : seizures, cerebral palsy SURGICAL HISTORY : None. ENCOUNTER: Initial ACUITY: 3 weeks PAIN SCORE: Non-responsive. LOCATION: Bilateral chest FINDINGS: PA and lateral views of the chest were obtained and demonstrate a moderate to severe scoliosis with d eformity of the thorax. There is overlying artifact from the patient's arms on both views. No definit e confluent infiltrate or effusion is identified. There is a catheter projected over the central uppe r abdomen. There is gaseous distention of the bowel in the upper abdomen. CONCLUSION: 1. Suboptimal Midinspiratory study demonstrating no definite acute cardiac pulmonary disease. 2. Overlying artifact moderate to severe scoliosis and deformity of the thorax. 3. Catheter projected over the upper abdomen. 4. Gaseous distention of the bowel. Ayaan Hooker MD on November 17, 2016 at 14:33 Board Certified Radiologist. This report was verified electronically.
[2016-11-18] VITALS (8 sets, daily range): BP systolic 75–126; BP diastolic 56–78; PULSE 108–126; RESP 18–22; TEMP 96.7–98.4; O2SAT 95–99
[2016-11-18] MEDS: FAMOTIDINE 20 MG TAB NG SCH ×3 (00:16→20:50)
[2016-11-18] MEDS: PHENYTOIN SUSP 100 MG/4 ML CUP PEG SCH ×3 (00:16→20:50)
[2016-11-18] MEDS: OXYBUTYNIN CHLORIDE 5 MG TAB PO SCH ×4 (00:16→23:46)
[2016-11-18] MEDS: TOPIRAMATE 100 MG TAB GT SCH ×3 (00:16→20:50)
[2016-11-18] MEDS: SENNOSIDES SYRUP 8.8 MG/5 ML CUP PO SCH ×3 (00:16→21:00)
[2016-11-18] MEDS: HEPARIN SODIUM - SQ 10,000 UNITS/ML VIAL SQ SCH ×4 (00:16→23:46)
[2016-11-18] MEDS: ACETAMINOPHEN 650 MG/20.3 ML UDC PEG PRN ×3 (00:54→20:51)
[2016-11-18] MEDS: CHLORHEXIDINE GLUCONATE 2 % 1 PACK (2 CLOTHS) TOP SCH (04:00)
[2016-11-18 07:19] LABS: MEAN CELL VOLUME 71.8 FL (80.0-100.0); MEAN CORPUSCULAR HEMOGLOBIN 21.6 PG (27.0-34.0); MEAN CORPUSCULAR HGB CONC 30.1 % (32.0-36.0); PLATELET COUNT 696 TH/MM3 (150-450); RED BLOOD COUNT 4.32 MIL/MM3 (4.50-5.90); RED CELL DISTRIBUTION WIDTH 32.3 % (11.6-17.2); WHITE BLOOD COUNT 11.7 TH/MM3 (4.0-11.0)
[2016-11-18 07:29] LABS: HEMO FLAGS AUTO DIFF
[2016-11-18 07:43] LABS: ALT (GPT) 19 U/L (12-78); ANION GAP 6 MEQ/L (5-15); AST (GOT) 18 U/L (15-37); BICARBONATE 24.9 MEQ/L (21.0-32.0); BLOOD UREA NITROGEN 14 MG/DL (7-18); CHLORIDE 109 MEQ/L (98-107); GLOMERULAR FILTRATION RATE 211 ML/MIN (>89); SODIUM (NA) 140 MEQ/L (136-145)
[2016-11-18 07:45] LABS: ALKALINE PHOSPHATASE 85 U/L (45-117); TOTAL BILIRUBIN ADULT 0.1 MG/DL (0.2-1.0)
[2016-11-18 09:43] LABS: BANDS 1 % (0-6); BASOPHILS 2 % (0-2); EOSINOPHILS 2 % (0-4); NEUTROPHIL # MANUAL DIFF 7.3 TH/MM3 (1.8-7.7); PLATELET ESTIMATE SMEAR HIGH (NORMAL); PLATELET MORPHOLOGY NORMAL (NORMAL); POLYS (SEG NEUTROPHILS) 61 % (16-70); SCAN/DIFF FINAL DIFF MANUAL; WBC DIFF SAMPLE 100
[2016-11-18 09:44] LABS: KERATOCYTES OCC (NORMAL); TARGET CELLS 2+ (NORMAL)
[2016-11-18] MEDS: FLUDROCORTISONE ACETATE 0.1 MG TAB PO SCH (09:45)
[2016-11-18] MEDS: ASPIRIN 81 MG CHEW TAB CHEW SCH (09:45)
[2016-11-18] MEDS: LEVOFLOXACIN 750 MG PREMIX INJ 150 ML IV SCH (09:46)
--- NOTE | 2016-11-18 11:53 | HHI.PR ---
Subjective Remarks in no acute distress. non-communicative. no fever. d/w the RN and no acute issues over night. Objective Vitals Vital Signs Date Time Temp Pulse Resp B/P Pulse Ox O2 Delivery O2 Flow Rate FiO2 11/18/16 08:17 99 21 11/18/16 08:00 98.4 113 18 111/57 97 11/18/16 04:00 97.0 108 20 75/57 95 11/18/16 01:11 98 11/17/16 20:53 98.0 116 18 114/80 94 11/17/16 16:03 96.6 93 20 133/75 98 11/17/16 12:46 96.6 103 20 102/71 98 I/O 11/17/16 11/17/16 11/17/16 11/18/16 11/18/16 11/18/16 07:00 15:00 23:00 07:00 15:00 23:00 Intake Total 200 ml 100 ml 100 ml Output Total 400 ml 450 ml Balance -200 ml 100 ml -350 ml Tube Feeding 200 ml Other 100 ml 100 ml Output Urine Total 400 ml 450 ml # Voids 3 # Bowel Movements 2 2 2 Result Diagram: 11/18/16 0627 11/18/16 0627 Imaging Last Impressions Chest X-Ray 11/17/16 0000 Signed Impressions: Service Date/Time: Thursday, November 17, 2016 13:54 - CONCLUSION: 1. Suboptimal Midinspiratory study demonstrating no definite acute cardiac pulmonary disease. 2. Overlying artifact moderate to severe scoliosis and deformity of the thorax. 3. Catheter projected over the upper abdomen. 4. Gaseous distention of the bowel. Ayaan Hooker MD Chest CT 11/03/16 0000 Signed Impressions: Service Date/Time: Friday, November 04, 2016 17:34 - CONCLUSION: Compared with October 23 there is new dense consolidation left lower lobe most characteristic of pneumonia or aspiration. Improved airspace disease on the right since prior exam. New small bilateral pleural effusions. Michael Feldman MD Abdomen/Pelvis CT 11/03/16 0000 Signed Impressions: Service Date/Time: Friday, November 04, 2016 17:38 - CONCLUSION: 1. Feeding jejunostomy now present in upper abdomen. Diffuse ileus. No evidence for obstruction. Multiple calcified gallstones. 2. Mild mural thickening of the colon especially distally which may indicate mild colitis. Michael Feldman MD Gastrostomy Tube Change 10/31/16 0000 Signed Impressions: Service Date/Time: Monday, October 31, 2016 15:06 - CONCLUSION: 1. Uncomplicated conversion from gastrostomy to gastrojejunostomy Young Queen MD Abdomen X-Ray 10/28/16 0600 Signed Impressions: Service Date/Time: Friday, October 28, 2016 05:08 - CONCLUSION: Left lower lobe pulmonary consolidation. There are gas-filled dilated bowel loops identified though slightly decreased. Oj Shipley MD CT Angiography 10/23/16 1712 Signed Impressions: Service Date/Time: Sunday, October 23, 2016 19:27 - CONCLUSION: 1. Negative for pulmonary embolus. 2. Diffuse bilateral airspace disease most characteristic of aspiration or pneumonia. 3. Endotracheal tube in satisfactory position. There is some mucoid debris in the airways. 4. Gallstones. Ileus. Scoliosis. Michael Feldman MD Objective Remarks GENERAL: in no apparent distress. CARDIOVASCULAR: Regular rate and irregular rhythm without murmurs, gallops, or rubs. RESPIRATORY: Clear to auscultation. Breath sounds equal bilaterally. No wheezes , rales, or rhonchi. GASTROINTESTINAL: Abdomen soft, non-tender, nondistended. Normal, active bowel sounds MUSCULOSKELETAL: contracture of the upper and lower extremities. NEURO: Awake- noncommunicative Medications and IVs Current Medications Piperacillin Sod/ Tazobactam Sod 100 ml @ 200 mls/hr ONCE STAT IV Last administered on 10/23/16 17:10; Start 10/23/16 at 15:19; Stop 10/23/16 at 15:48 ; Status DC Azithromycin 500 mg/Sodium Chloride 250 ml @ 250 mls/hr ONCE STAT IV Last administered on 10/23/16 17:49; Start 10/23/16 at 15:19; Stop 10/23/16 at 16:18 ; Status DC Sodium Chloride 1,000 ml @ 1,000 mls/hr Q1H ONCE IV Last administered on 17:10; Start 10/23/16 at 15:19; Stop 10/23/16 at 16:18; Status DC Potassium Chloride/Sodium Chloride 1,000 ml @ 250 mls/hr Q4H IV Last administered on 10/23/16 17:51; Start 10/23/16 at 17:00; Stop 10/23/16 at 18:16 ; Status DC Sodium Chloride (NS 1000 ml Inj) 1,000 ml @ 999 mls/hr BOLUS ONCE IV Last administered on 10/23/16 18:41; Start 10/23/16 at 17:00; Stop 10/23/16 at 18:00 ; Status DC Etomidate (Amidate Inj) 20 mg STK-MED ONCE .ROUTE ; Start 10/23/16 at 17:17; Stop 10/23/16 at 17:18; Status DC Vecuronium [place] (Norcuron 10 Mg Inj) 10 mg STK-MED ONCE .ROUTE ; Start at 17:17; Stop 10/23/16 at 17:18; Status DC Etomidate (Amidate Inj) 20 mg ONCE ONCE IVP Last administered on 10/23/16 17: 50; Start 10/23/16 at 17:45; Stop 10/23/16 at 17:46; Status DC Vecuronium [place] (Norcuron 10 Mg Inj) 10 mg ONCE ONCE IV Last administered on 10/23/16 17:51; Start 10/23/16 at 17:45; Stop 10/23/16 at 17:46; Status DC IV Flush (NS Flush) 2 ml UNSCH PRN IVF FLUSH AFTER USING IV ACCESS Last administered on 11/16/16 21:42; Start 10/23/16 at 17:45 Propofol (Diprivan 200 Mg/20 ml Inj) 25 mg ONCE ONCE IV Last administered on 10/23/16 21:00; Start 10/23/16 at 17:45; Stop 10/23/16 at 17:46; Status DC Phenytoin (Dilantin Liq) 100 mg Q12HR PEG Last administered on 11/18/16 09:45 ; Start 10/23/16 at 21:00 Topiramate (Topamax) 100 mg BID GT Last administered on 11/18/16 09:45; Start 10/23/16 at 21:00 Fludrocortisone Acetate (Florinef) 0.2 mg DAILY PO hytn Last administered on 09:45; Start 10/24/16 at 09:00 Acetaminophen (Tylenol) 650 mg Q6H PRN PO PAIN 1-10 AND/OR FEVER >101F; Start 10/23/16 at 18:15; Stop 10/26/16 at 14:46; Status DC Pantoprazole Sodium (Protonix Inj) 40 mg DAILY IV Last administered on 09:58; Start 10/23/16 at 18:15; Stop 11/01/16 at 11:06; Status DC Albuterol/ Ipratropium (Duoneb Neb) 1 ampule Q6HR NEB INH Last administered on 10/27/16 17:17; Start 10/23/16 at 18:15; Stop 10/27/16 at 18:15; Status DC Heparin Sodium (Porcine) (Heparin Inj) 5,000 units Q12H SQ Last administered on 10/25/16 20:12; Start 10/23/16 at 20:00; Stop 10/26/16 at 08:27; Status DC Miscellaneous Information 1 [id number] XX ; Start 10/23/16 at 18:15 Chlorhexidine Gluconate (Chlorhexidine 2% Cloth) Taper DAILY@04 TOP Last administered on 11/17/16 04:00; Start 10/24/16 at 04:00; Stop 10/20/17 at 03:59 Chlorhexidine Gluconate 3 pack 3 pack UNSCH PRN TOP HYGIENIC CARE; Start at 18:15 Propofol (Diprivan 1000 Mg/100ml Inj) 100 ml @ 0 mls/hr TITRATE IV Last administered on 10/23/16 21:09; Start 10/23/16 at 18:15; Stop 10/27/16 at 07:33 ; Status DC Water 250 ml 250 ml Q8HR G-TUBE Last administered on 10/23/16 23:50; Start at 22:00; Stop 10/24/16 at 06:23; Status DC Sodium Chloride 1,000 ml @ 999 mls/hr BOLUS ONCE IV Last administered on 10/23 19:43; Start 10/23/16 at 18:15; Stop 10/23/16 at 19:15; Status DC Potassium Chloride 100 ml @ 50 mls/hr Q2H IV Last administered on 10/23/16 21 :55; Start 10/23/16 at 19:00; Stop 10/23/16 at 22:59; Status DC Sodium Chloride 1,000 ml @ 125 mls/hr Q8H IV Last administered on 10/26/16 09 :03; Start 10/23/16 at 18:15; Stop 10/26/16 at 19:08; Status DC Piperacillin Sod/ Tazobactam Sod 100 ml @ 200 mls/hr Q6H IV Last administered on 10/31/16 10:48; Start 10/23/16 at 23:00; Stop 10/31/16 at 12:33; Status DC Azithromycin 500 mg/Sodium Chloride 250 ml @ 250 mls/hr Q24H IV Last administered on 10/30/16 17:17; Start 10/24/16 at 18:00; Stop 10/31/16 at 12:33 ; Status DC Vancomycin HCl/ Sodium Chloride (Vancomycin Inj/ NS 250 ml Inj) 250 ml @ 250 mls/hr ONCE ONCE IV Last administered on 10/23/16 19:43; Start 10/23/16 at 18 :15; Stop 10/23/16 at 19:14; Status DC Dextrose (D50w (Vial) Inj) 25 ml UNSCH PRN IV PUSH HYPOGLYCEMIA-SEE COMMENTS Last administered on 10/26/16 11:52; Start 10/23/16 at 18:15; Stop 10/30/16 at 20:26; Status DC Glucagon (Glucagon Inj) 1 mg UNSCH PRN OTHER HYPOGLYCEMIA-SEE COMMENTS; Start 10/23/16 at 18:15; Stop 10/30/16 at 20:27; Status DC Insulin Human Regular (NovoLIN R SUPPLEMENTAL SCALE) 1 Q6HR SQ ; Start 10/23/16 at 18:15; Stop 10/30/16 at 20:27; Status DC Iohexol 100 ml 100 ml STK-MED ONCE IV Last administered on 10/23/16 19:34; Start 10/23/16 at 19:34; Stop 10/23/16 at 19:35; Status DC Pharmacy Profile Note (Vancomycin Consult Pharmacy) 0 ml @ 0 mls/hr UNSCH OTHER ; Start 10/23/16 at 21:15; Stop 10/26/16 at 20:01; Status DC Lactulose (Lactulose Liq) 30 ml QID PO Last administered on 10/29/16 19:49; Start 10/24/16 at 09:00; Stop 10/31/16 at 18:14; Status DC Sennosides (Senna Liq) 8.8 mg DAILY PO Last administered on 11/05/16 10:00; Start 10/24/16 at 09:00; Stop 11/05/16 at 14:36; Status DC Diatrizoate Meglum/ Diatrizoate Sod 60 ml 60 ml STK-MED ONCE PEG ; Start at 22:15; Stop 10/23/16 at 22:16; Status DC Fentanyl Citrate 250 ml @ 0 mls/hr TITRATE IV Last administered on 10/26/16 21 :38; Start 10/23/16 at 22:30; Stop 10/27/16 at 07:19; Status DC Fentanyl Citrate 250 ml @ As Directed STK-MED ONCE .ROUTE ; Start 10/23/16 at 22:37; Stop 10/23/16 at 22:38; Status DC Lactated Ringer's (Lr 1000 ml Inj) 1,000 ml @ 999 mls/hr BOLUS ONCE IV Last administered on 10/24/16 06:26; Start 10/24/16 at 06:15; Stop 10/24/16 at 07:15 ; Status DC Metoclopramide HCl 10 mg 10 mg ONCE ONCE PO Last administered on 10/24/16 06: 27; Start 10/24/16 at 06:30; Stop 10/24/16 at 06:31; Status DC Vancomycin HCl/ Sodium Chloride (Vancomycin Inj/ NS 250 ml Inj) 257.5 ml @ 250 mls/hr Q12H IV Last administered on 10/26/16 11:52; Start 10/24/16 at 12:00; Stop 10/26/16 at 20:01; Status DC Miscellaneous Information SPECIFIC LAB TO BE DRAWN:VANCOMYCIN TROUGH DATE TO... ONCE ONCE XX ; Start 10/25/16 at 11:45; Stop 10/25/16 at 11:46; Status DC Oxybutynin Chloride 5 mg 5 mg Q8HR PO Last administered on 11/18/16 04:56; Start 10/24/16 at 17:30 Potassium Chloride 100 ml @ 50 mls/hr Q2H PRN IV For Potassium 2.8 - 3.2 mEq/ L Last administered on 11/07/16 18:17; Start 10/26/16 at 05:15; Stop 11/15/16 at 08:28; Status DC Potassium Chloride (KCl 20 Meq Premix Inj) 100 ml @ 50 mls/hr Q2H PRN IV For Potassium 2.8 - 3.2 mEq/L Last administered on 11/05/16 04:48; Start 10/26/16 at 05:15; Stop 11/15/16 at 08:28; Status DC Potassium Chloride 40 meq 40 meq UNSCH PRN PO/TUBE For Potassium 3.3 - 3.5 mEq/ L Last administered on 11/11/16 12:54; Start 10/26/16 at 05:15; Stop 11/15/16 at 08:28; Status DC Potassium Chloride 100 ml @ 25 mls/hr UNSCH PRN IV For Potassium 3.3 - 3.5 mEq /L; Start 10/26/16 at 05:15; Stop 11/15/16 at 08:28; Status DC Potassium Chloride 100 ml @ 50 mls/hr Q2H PRN IV For Potassium 3.3 - 3.5 mEq/L ; Start 10/26/16 at 05:15; Stop 11/15/16 at 08:28; Status DC Magnesium Sulfate/ Sodium Chloride (Magnesium Sulfate Inj/NS Inj) 100 ml @ 50 mls/hr UNSCH PRN IV For Magnesium 0.9 - 1.1 mg/dL; Start 10/26/16 at 05:15; Stop 11/15/16 at 08:28; Status DC Magnesium Oxide 800 mg 800 mg UNSCH PRN PO For Magnesium 1.2 - 1.6 mg/dL; Start 10/26/16 at 05:15; Stop 11/15/16 at 08:28; Status DC Magnesium Sulfate/ Sodium Chloride (Magnesium Sulfate Inj/NS Inj) 100 ml @ 50 mls/hr UNSCH PRN IV For Magnesium 1.2 - 1.6 mg/dL Last administered on 10:01; Start 10/26/16 at 05:15; Stop 11/15/16 at 08:28; Status DC Potassium Phosphate 2000 mg 2,000 mg Q4H PRN PO For Phosphorus < 2.5 mg/dL; Start 10/26/16 at 05:15; Stop 11/15/16 at 08:28; Status DC Sodium Phosphate/ Sodium Chloride (Sodium Phosphate Inj/NS 250 ml Inj) 250 ml @ 42 mls/hr UNSCH PRN IV For Phosphorus < 2.5 mg/dL; Start 10/26/16 at 05:15; Stop 11/15/16 at 08:28; Status DC Potassium Chloride (KCl 40 Meq/30 ml Liq) 40 meq UNSCH PRN PO/TUBE SEE LABEL COMMENTS; Start 10/26/16 at 05:15; Stop 11/15/16 at 08:28; Status DC Potassium Phosphate 2000 mg 2,000 mg UNSCH PRN PO/TUBE SEE LABEL COMMENTS; Start 10/26/16 at 05:15; Stop 11/15/16 at 08:28; Status DC Potassium Phosphate/Sodium Chloride (Potassium Phosphate Inj/NS 250 ml Inj) 260 ml @ 42 mls/hr UNSCH PRN IV SEE LABEL COMMENTS Last administered on 11/07/16 11:54; Start 10/26/16 at 05:15; Stop 11/15/16 at 08:28; Status DC Polyethylene Glycol (Miralax) 17 gm DAILY PO Last administered on 10/28/16 08: 33; Start 10/26/16 at 09:00; Stop 11/05/16 at 14:36; Status DC Heparin Sodium (Porcine) (Heparin Inj) 5,000 units Q8H SQ Last administered on 11/18/16 09:45; Start 10/26/16 at 16:00 Miscellaneous Information SPECIFIC LAB TO BE DRAWN:S... ONCE ONCE XX Last administered on 10/26/16 11:15; Start 10/26/16 at 11:15; Stop 10/26/16 at 11:16 ; Status DC Sodium Biphosphate/ Sodium Phosphate (Fleets Enema (Adult)) 133 ml BID PRN WA UNTIL BOWEL MOVEMENT Last administered on 10/26/16 12:51; Start 10/26/16 at 12: 30 Sodium Biphosphate/ Sodium Phosphate (Fleets Enema (Adult)) 133 ml BID WA Last administered on 10/29/16 19:51; Start 10/26/16 at 12:45; Stop 10/30/16 at 13:50 ; Status DC Acetaminophen 650 mg 650 mg Q4H PRN PEG PAIN 1-10 AND/OR FEVER >101F Last administered on 11/18/16 04:56; Start 10/26/16 at 15:00 Dextrose/Sodium Chloride (D5W-1/ NS 1000 ml Inj) 1,000 ml @ 100 mls/hr Q10H IV Last administered on 11/05/16 13:30; Start 10/26/16 at 19:15; Stop 11/05/16 at 14:28; Status DC Bisacodyl 10 mg 10 mg DAILY RECTAL Last administered on 10/28/16 08:35; Start 10/27/16 at 09:00; Stop 10/31/16 at 18:14; Status DC Propofol (Diprivan 1000 Mg/100ml Inj) 100 ml @ 0 mls/hr TITRATE IV Last administered on 11/03/16 08:49; Start 10/27/16 at 07:30; Stop 11/10/16 at 10:49 ; Status DC Methylnaltrexone [place] 6 mg 6 mg ONCE ONCE SQ Last administered on 01:28; Start 10/27/16 at 21:00; Stop 10/27/16 at 21:01; Status DC Ampicillin Sodium/ Sulbactam Sodium/ Sodium Chloride (Unasyn Inj/NS Inj) 100 ml @ 200 mls/hr Q6H IV Last administered on 11/03/16 09:22; Start 10/31/16 at 15: 00; Stop 11/03/16 at 11:42; Status DC Metoclopramide HCl (Reglan Inj) 10 mg STK-MED ONCE .ROUTE Last administered on 10/31/16 15:21; Start 10/31/16 at 15:21; Stop 10/31/16 at 15:22; Status DC Iohexol (Omnipaque 350 Inj) 40 ml STK-MED ONCE G-TUBE Last administered on 10/31 15:40; Start 10/31/16 at 15:55; Stop 10/31/16 at 15:56; Status DC Water (Free Water) 250 ml Q4HR G-TUBE Last administered on 11/05/16 13:29; Start 11/01/16 at 12:00; Stop 11/05/16 at 14:27; Status DC Pantoprazole Sodium (Protonix) 40 mg DAILY PO ; Start 11/02/16 at 09:00; Stop 11/02/16 at 09:00; Status DC Famotidine (Pepcid Liq) 20 mg BID NG ; Start 11/01/16 at 21:00; Stop 11/02/16 at 20:49; Status DC Hyoscyamine Sulfate (Levsin Liq) 0.125 mg ONCE ONCE PO Last administered on 21:08; Start 11/02/16 at 12:45; Stop 11/02/16 at 13:08; Status DC Spironolactone (Aldactone) 25 mg ONCE ONCE PO Last administered on 11/02/16 14 :07; Start 11/02/16 at 13:00; Stop 11/02/16 at 13:07; Status DC Famotidine 20 mg 20 mg BID NG Last administered on 11/18/16 09:45; Start at 21:00 Norepinephrine Bitartrate (Levophed-Dextrose Drip) 250 ml @ 0 mls/hr TITRATE IV Last administered on 11/04/16 14:55; Start 11/03/16 at 03:45; Stop 11/05/16 at 14:15; Status DC Terbutaline Sulfate 1 mg 1 mg UNSCH PRN SQ For Extravasation; Start 11/03/16 at 03:45; Stop 11/11/16 at 07:35; Status DC Piperacillin Sod/ Tazobactam Sod 100 ml @ 200 mls/hr Q8H IV Last administered on 11/13/16 12:26; Start 11/03/16 at 12:00; Stop 11/13/16 at 15:41; Status DC Pharmacy Profile Note 0 ml @ 0 mls/hr UNSCH OTHER ; Start 11/03/16 at 11:45; Stop 11/09/16 at 07:06; Status DC Micafungin Sodium 150 mg/Sodium Chloride 100 ml @ 100 mls/hr Q24H IV Last administered on 11/05/16 13:29; Start 11/03/16 at 13:00; Stop 11/06/16 at 10:14; Status DC Vancomycin HCl/ Sodium Chloride (Vancomycin Inj/ NS 250 ml Inj) 257.5 ml @ 250 mls/hr Q12H IV Last administered on 11/08/16 03:07; Start 11/03/16 at 14:00; Stop 11/08/16 at 14:22; Status DC Diatrizoate Meglum/ Diatrizoate Sod ( Gastrokaur Liq) 18 ml ONCE ONCE PO Last administered on 11/03/16 12:53; Start 11/03/16 at 12:30; Stop 11/03/16 at 12: 31; Status DC Miscellaneous Information SPECIFIC LAB TO BE DRAWN:VANCO TROUGH DATE TO BE DR... ONCE ONCE XX Last administered on 11/05/16 01:45; Start 11/05/16 at 01:45 ; Stop 11/05/16 at 01:46; Status DC Calcium Gluconate/ Dextrose (Calcium Gluconate Inj/D5W 100 ml Inj) 120 ml @ 120 mls/hr ONCE ONCE IV Last administered on 11/04/16 18:51; Start 11/04/16 at 18:15; Stop 11/04/16 at 19:15; Status DC Iohexol 90 ml 90 ml STK-MED ONCE IV Last administered on 11/04/16 18:16; Start 11/04/16 at 18:16; Stop 11/04/16 at 18:17; Status DC Potassium Chloride/Dextrose/ Sod Cl (D5-1/2 NS + KCl 20 Meq Inj) 1,000 ml @ 42 mls/hr [id number] IV Last administered on 11/09/16 12:55; Start 11/05/16 at 14:30; Stop 11/10/16 at 10:50; Status DC Polyethylene Glycol (Miralax) 17 gm BID TUBE ; Start 11/05/16 at 21:00; Stop 07/17 at 10:50; Status DC Sennosides (Senna Liq) 8.8 mg BID PO Last administered on 11/18/16 09:45; Start 11/05/16 at 21:00 Lactulose 30 ml 30 ml DAILY PO Last administered on 11/05/16 15:00; Start at 15:00; Stop 11/10/16 at 10:50; Status DC Calcium Gluconate/ Dextrose (Calcium Gluconate Inj/D5W 100 ml Inj) 120 ml @ 120 mls/hr ONCE ONCE IV Last administered on 11/06/16 10:37; Start 11/06/16 at 10:00; Stop 11/06/16 at 10:59; Status DC Miscellaneous Information SPECIFIC LAB TO BE ... ONCE ONCE XX Last administered on 11/08/16 14:00; Start 11/08/16 at 13:45; Stop 11/08/16 at 13:46; Status DC Vancomycin HCl/ Sodium Chloride (Vancomycin Inj/ NS 250 ml Inj) 257.5 ml @ 250 mls/hr Q18H IV Last administered on 11/09/16 04:30; Start 11/09/16 at 05:00; Stop 11/09/16 at 07:07; Status DC Alteplase, Recombinant (Cathflo Activase Inj) 2 mg ONCE ONCE INTRACATH Last administered on 11/09/16 22:30; Start 11/09/16 at 22:30; Stop 11/09/16 at 22:31; Status DC Aspirin 81 mg 81 mg DAILY CHEW Last administered on 11/18/16 09:45; Start 08/17 at 09:00 Levofloxacin/ Dextrose (Levaquin 750 Mg Premix Inj) 150 ml @ 100 mls/hr Q24H IV Last administered on 11/18/16 09:46; Start 11/17/16 at 10:00 Date of Insertion: Nov 03, 2016 Line: Central Venous Catheter Side: Right Location: Internal, Jugular (vasoactive medication) A/P Assessment and Plan A/P Acute hypoxic respiratory failure secondary to aspiration pneumonia/Klebsiella, Pseudomonas. resolved- Extubated 11/09 keep on oxygen as needed to keep O2 sat > 90%.sputum culture ( 11/09) with pseudomonas- blood cultures from 11/17 negative so far; will continue with levaquin. ID reconsulted. tacycardia; likely due to infection-will monitor- cardiology consulted History of tracheostomy status post decannulation. Cerebral palsy/Seizure disorder; continue antiepileptics Congenital blindness/Chronic contractures Chronic systolic heart failure. Echocardiogram 05/06 revealed EF 45-50%. Mild systolic dysfunction. No regional wall motion abnormality. Chronic Florinef use History of gastric ulcer; continue famotidine Colonic ileus/resolved. CT abdomen/pelvis 11/04 revealed cholelithiasis without cholecystitis. GJ tube in correct position. Conversion of gastric to GJ tube secondary to intractable nausea and vomiting Overactive bladder Microcytic anemia Thrombocytosis, reactive due to PNA DVT prophylaxis with subq heparin Osman Moreno MD Nov 18, 2016 11:53
--- NOTE | 2016-11-18 23:05 | HHI.IDPN ---
Subjective Subjective Remarks Mr. Thakur is a 36-year-old male with past medical history significant for cerebral palsy, seizure disorder, mental retardation, previous history of hospitalization for aspiration pneumonia. Patient now admitted for Aspiration PNA, Sepsis, acute metabolic encephalopathy and Ileus. Reconsulted for fever. On review of temp curve it appears only 1 low grade fever Blood cultures drawn. Patient was recently treated for recurrent aspiration PNA after ileus. Reviewed with RN: no fevers, alert. Tolerates tube feeds. More alert today, does not follow commands. No rash UO good. No cough. Antibiotics Levaquin IV Lines Line sites with no e/o infection Past Medical History reviewed Allergies: Coded Allergies: No Known Allergies (Unverified , 06/21/16) Objective . Vital Signs Date Time Temp Pulse Resp B/P Pulse Ox O2 Delivery O2 Flow Rate FiO2 11/18/16 20:00 96.7 110 22 95/56 96 11/18/16 18:43 21 11/18/16 16:00 98.4 126 20 126/57 96 11/18/16 12:00 98.0 114 18 113/78 99 11/18/16 08:17 99 21 11/18/16 08:00 98.4 113 18 111/57 97 11/18/16 04:00 97.0 108 20 75/57 95 11/18/16 01:11 98 11/17/16 11/17/16 11/18/16 15:00 23:00 07:00 Intake Total 100 ml 100 ml Output Total 450 ml Balance 100 ml -350 ml Other 100 ml 100 ml Output Urine Total 450 ml # Voids 3 # Bowel Movements 2 2 2 . Laboratory Tests Test 11/17/16 11/18/16 10:39 06:27 White Blood Count 14.6 TH/MM3 11.7 TH/MM3 Red Blood Count 4.42 MIL/MM3 4.32 MIL/MM3 Hemoglobin 9.6 GM/DL 9.3 GM/DL Hematocrit 32.1 % 31.0 % Mean Corpuscular Volume 72.6 FL 71.8 FL Mean Corpuscular Hemoglobin 21.8 PG 21.6 PG Mean Corpuscular Hemoglobin 30.1 % 30.1 % Concent Red Cell Distribution Width 31.6 % 32.3 % Platelet Count 744 TH/MM3 696 TH/MM3 Mean Platelet Volume 7.5 FL 7.9 FL Neutrophils (%) (Auto) % % Lymphocytes (%) (Auto) % % Monocytes (%) (Auto) % % Eosinophils (%) (Auto) % % Basophils (%) (Auto) % % Neutrophils # (Auto) TH/MM3 TH/MM3 Lymphocytes # (Auto) TH/MM3 TH/MM3 Monocytes # (Auto) TH/MM3 TH/MM3 Eosinophils # (Auto) TH/MM3 TH/MM3 Basophils # (Auto) TH/MM3 TH/MM3 CBC Comment AUTO DIFF AUTO DIFF Differential Total Cells 100 100 Counted Neutrophils % (Manual) 62 % 61 % Band Neutrophils % 3 % 1 % Lymphocytes % 28 % 25 % Monocytes % 4 % 9 % Eosinophils % 3 % 2 % Neutrophils # (Manual) 9.5 TH/MM3 7.3 TH/MM3 Nucleated Red Blood Cells 1 /100 WBC Differential Comment FINAL DIFF FINAL DIFF MANUAL MANUAL Platelet Estimate HIGH HIGH Platelet Morphology Comment NORMAL NORMAL Target Cells 2+ 2+ Keratocytes OCC OCC Basophils % 2 % Laboratory Tests Test 11/17/16 11/18/16 10:39 06:27 Sodium Level 139 MEQ/L 140 MEQ/L Potassium Level 4.2 MEQ/L 4.0 MEQ/L Chloride Level 110 MEQ/L 109 MEQ/L Carbon Dioxide Level 22.3 MEQ/L 24.9 MEQ/L Anion Gap 7 MEQ/L 6 MEQ/L Blood Urea Nitrogen 13 MG/DL 14 MG/DL Creatinine 0.45 MG/DL 0.54 MG/DL Estimat Glomerular Filtration 261 ML/MIN 211 ML/MIN Rate Random Glucose 72 MG/DL 79 MG/DL Lactic Acid Level 0.7 mmol/L Calcium Level 8.3 MG/DL 8.5 MG/DL Total Bilirubin 0.1 MG/DL Aspartate Amino Transf 18 U/L (AST/SGOT) Alanine Aminotransferase 19 U/L (ALT/SGPT) Alkaline Phosphatase 85 U/L Total Protein 8.6 GM/DL Albumin 2.3 GM/DL Microbiology Date/Time Procedure Status Source Growth 11/17/16 10:36 Aerobic Blood Culture - Preliminary Resulted Blood Peripheral NO GROWTH IN 1 DAY 11/17/16 10:36 Anaerobic Blood Culture - Final Resulted Blood Peripheral ONLY AEROBIC CULTURE ORDERED 11/17/16 10:39 Aerobic Blood Culture Received Blood Peripheral Pending 11/17/16 10:39 Anaerobic Blood Culture Received Blood Peripheral Pending Imaging Last Impressions Abdomen X-Ray 10/27/16 0600 Signed Impressions: Service Date/Time: Thursday, October 27, 2016 05:56 - CONCLUSION: Probable ileus pattern. Close clinical and radiographic followup recommended. Oj Shipley MD Chest X-Ray 10/26/16 0000 Signed Impressions: Service Date/Time: October 08:29 - CONCLUSION: Stable endotracheal tube which appears slightly high. Stable airspace consolidation within the right hemithorax. Iesha Murray MD CT Angiography 10/23/16 1712 Signed Impressions: Service Date/Time: Sunday, October 23, 2016 19:27 - CONCLUSION: 1. Negative for pulmonary embolus. 2. Diffuse bilateral airspace disease most characteristic of aspiration or pneumonia. 3. Endotracheal tube in satisfactory position. There is some mucoid debris in the airways. 4. Gallstones. Ileus. Scoliosis. Michael Feldman MD Abdomen/Pelvis CT 10/23/16 1625 Signed Impressions: Service Date/Time: Sunday, October 23, 2016 19:27 - CONCLUSION: 1. Multiple gallstones. Diffuse ileus. Scoliosis with bilateral hip dysplasia. Basilar lung disease. See chest CT. Michael Feldman MD Physical Exam GENERAL: Scoliotic with deformities. In a position. SKIN: No rashes. Warm and dry HEAD: Atraumatic. No temporal or scalp tenderness. EYES: Pupils equal round and reactive. No scleral icterus. No injection or drainage. ENT: Nose without bleeding, purulent drainage or septal hematoma. ET in mouth NECK: Trachea midline. Supple, nontender, no meningeal signs. Scar in neck from previous trach CARDIOVASCULAR: HS audible. RESPIRATORY: No adv sounds heard. GASTROINTESTINAL: Abdomen soft, distended, non tender, no rebound or rigidity. GJ tube site ok. MUSCULOSKELETAL: Extremities with contractures and deformities. No joint effusion, or edema noted. NEUROLOGICAL: Alert. Opens eyes spontaneously. ? tracks with eyes. Extremities spastic and contracted Psych: could not be assessed. Calm. IV line sites with no e/o infection. Assessment & Plan Remarks Sepsis likely secondary to recurrent aspiration pneumonia on admission. 1 low grade fever: not persistent Cultures negative. Observe off antibiotics. 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 History of Brina fundoplication as well as exploratory laparotomy for small bowel obstruction. Patient is at risk for recurrent aspiration pneumonia due to his history of Brina fundoplication, developmental delay, seizure disorder, scoliosis, distorted GI as well as skeletal anatomy. Recommendations: DC Levaquin IV Observe off antibiotics. Of note patient at risk for recurrent aspiration PNA. D/W RN Will sign off please call back if any change in clinical condition or questions. Janet Yates MD Nov 18, 2016 23:05
[2016-11-19] VITALS (7 sets, daily range): BP systolic 95–118; BP diastolic 58–70; PULSE 109–117; RESP 19–22; TEMP 97.7–99.3; O2SAT 94–98
[2016-11-19] MEDS: CHLORHEXIDINE GLUCONATE 2 % 1 PACK (2 CLOTHS) TOP SCH (03:08)
[2016-11-19] MEDS: OXYBUTYNIN CHLORIDE 5 MG TAB PO SCH ×2 (06:00→21:53)
[2016-11-19] MEDS: FLUDROCORTISONE ACETATE 0.1 MG TAB PO SCH (08:13)
[2016-11-19] MEDS: ASPIRIN 81 MG CHEW TAB CHEW SCH (08:13)
[2016-11-19] MEDS: HEPARIN SODIUM - SQ 10,000 UNITS/ML VIAL SQ SCH ×2 (08:13→18:13)
[2016-11-19] MEDS: FAMOTIDINE 20 MG TAB NG SCH ×2 (08:13→21:49)
[2016-11-19] MEDS: TOPIRAMATE 100 MG TAB GT SCH ×2 (08:13→21:49)
[2016-11-19] MEDS: SENNOSIDES SYRUP 8.8 MG/5 ML CUP PO SCH ×2 (08:14→21:00)
[2016-11-19] MEDS: PHENYTOIN SUSP 100 MG/4 ML CUP PEG SCH ×2 (08:14→21:49)
[2016-11-19] MEDS: ACETAMINOPHEN 650 MG/20.3 ML UDC PEG PRN ×2 (08:15→18:12)
--- NOTE | 2016-11-19 12:10 | HHI.PR ---
Subjective Remarks [facility] weekend coverage; in no acute distress. remains afebrile. d/w the RN and no acute issues over night. Objective Vitals Vital Signs Date Time Temp Pulse Resp B/P Pulse Ox O2 Delivery O2 Flow Rate FiO2 11/19/16 09:45 18 11/19/16 08:28 98.3 109 20 118/70 96 11/19/16 05:29 97.7 117 22 95/68 95 11/19/16 00:00 98.8 109 20 95/60 95 11/18/16 20:00 96.7 110 22 95/56 96 11/18/16 18:43 21 11/18/16 16:00 98.4 126 20 126/57 96 I/O 11/18/16 11/18/16 11/18/16 11/19/16 11/19/16 11/19/16 07:00 15:00 23:00 07:00 15:00 23:00 Output Total 750 ml 450 ml 400 ml Balance -750 ml -450 ml -400 ml Output Urine Total 750 ml 450 ml 400 ml # Voids 3 # Bowel Movements 2 2 0 1 Result Diagram: 11/18/1662611/18/16626 Imaging Last Impressions Chest X-Ray 11/17/16 0000 Signed Impressions: Service Date/Time: Thursday, November 17, 2016 13:54 - CONCLUSION: 1. Suboptimal Midinspiratory study demonstrating no definite acute cardiac pulmonary disease. 2. Overlying artifact moderate to severe scoliosis and deformity of the thorax. 3. Catheter projected over the upper abdomen. 4. Gaseous distention of the bowel. Ayaan Hooker MD Chest CT 11/03/16 0000 Signed Impressions: Service Date/Time: Friday, November 04, 2016 17:34 - CONCLUSION: Compared with October 23 there is new dense consolidation left lower lobe most characteristic of pneumonia or aspiration. Improved airspace disease on the right since prior exam. New small bilateral pleural effusions. Michael Feldman MD Abdomen/Pelvis CT 11/03/16 0000 Signed Impressions: Service Date/Time: Friday, November 04, 2016 17:38 - CONCLUSION: 1. Feeding jejunostomy now present in upper abdomen. Diffuse ileus. No evidence for obstruction. Multiple calcified gallstones. 2. Mild mural thickening of the colon especially distally which may indicate mild colitis. Michael Feldman MD Gastrostomy Tube Change 10/31/16 0000 Signed Impressions: Service Date/Time: Monday, October 31, 2016 15:06 - CONCLUSION: 1. Uncomplicated conversion from gastrostomy to gastrojejunostomy Young Queen MD Abdomen X-Ray 10/28/16 0600 Signed Impressions: Service Date/Time: Friday, October 28, 2016 05:08 - CONCLUSION: Left lower lobe pulmonary consolidation. There are gas-filled dilated bowel loops identified though slightly decreased. Oj Shipley MD CT Angiography 10/23/16 1712 Signed Impressions: Service Date/Time: Sunday, October 23, 2016 19:27 - CONCLUSION: 1. Negative for pulmonary embolus. 2. Diffuse bilateral airspace disease most characteristic of aspiration or pneumonia. 3. Endotracheal tube in satisfactory position. There is some mucoid debris in the airways. 4. Gallstones. Ileus. Scoliosis. Michael Feldman MD Objective Remarks GENERAL: in no apparent distress. CARDIOVASCULAR:tachycardic without murmurs, gallops, or rubs. RESPIRATORY: Clear to auscultation. Breath sounds equal bilaterally. No wheezes , rales, or rhonchi. GASTROINTESTINAL: Abdomen soft, non-tender, nondistended. Normal, active bowel sounds MUSCULOSKELETAL: contracture of the upper and lower extremities. NEURO: Awake- noncommunicative Medications and IVs Current Medications Piperacillin Sod/ Tazobactam Sod 100 ml @ 200 mls/hr ONCE STAT IV Last administered on 10/23/16 17:10; Start 10/23/16 at 15:19; Stop 10/23/16 at 15:48 ; Status DC Azithromycin 500 mg/Sodium Chloride 250 ml @ 250 mls/hr ONCE STAT IV Last administered on 10/23/16 17:49; Start 10/23/16 at 15:19; Stop 10/23/16 at 16:18 ; Status DC Sodium Chloride 1,000 ml @ 1,000 mls/hr Q1H ONCE IV Last administered on 17:10; Start 10/23/16 at 15:19; Stop 10/23/16 at 16:18; Status DC Potassium Chloride/Sodium Chloride 1,000 ml @ 250 mls/hr Q4H IV Last administered on 10/23/16 17:51; Start 10/23/16 at 17:00; Stop 10/23/16 at 18:16 ; Status DC Sodium Chloride (NS 1000 ml Inj) 1,000 ml @ 999 mls/hr BOLUS ONCE IV Last administered on 10/23/16 18:41; Start 10/23/16 at 17:00; Stop 10/23/16 at 18:00 ; Status DC Etomidate (Amidate Inj) 20 mg STK-MED ONCE .ROUTE ; Start 10/23/16 at 17:17; Stop 10/23/16 at 17:18; Status DC Vecuronium [place] (Norcuron 10 Mg Inj) 10 mg STK-MED ONCE .ROUTE ; Start at 17:17; Stop 10/23/16 at 17:18; Status DC Etomidate (Amidate Inj) 20 mg ONCE ONCE IVP Last administered on 10/23/16 17: 50; Start 10/23/16 at 17:45; Stop 10/23/16 at 17:46; Status DC Vecuronium [place] (Norcuron 10 Mg Inj) 10 mg ONCE ONCE IV Last administered on 10/23/16 17:51; Start 10/23/16 at 17:45; Stop 10/23/16 at 17:46; Status DC IV Flush (NS Flush) 2 ml UNSCH PRN IVF FLUSH AFTER USING IV ACCESS Last administered on 11/16/16 21:42; Start 10/23/16 at 17:45 Propofol (Diprivan 200 Mg/20 ml Inj) 25 mg ONCE ONCE IV Last administered on 10/23/16 21:00; Start 10/23/16 at 17:45; Stop 10/23/16 at 17:46; Status DC Phenytoin (Dilantin Liq) 100 mg Q12HR PEG Last administered on 11/19/16 08:14 ; Start 10/23/16 at 21:00 Topiramate (Topamax) 100 mg BID GT Last administered on 11/19/16 08:13; Start 10/23/16 at 21:00 Fludrocortisone Acetate (Florinef) 0.2 mg DAILY PO hytn Last administered on 08:13; Start 10/24/16 at 09:00 Acetaminophen (Tylenol) 650 mg Q6H PRN PO PAIN 1-10 AND/OR FEVER >101F; Start 10/23/16 at 18:15; Stop 10/26/16 at 14:46; Status DC Pantoprazole Sodium (Protonix Inj) 40 mg DAILY IV Last administered on 09:58; Start 10/23/16 at 18:15; Stop 11/01/16 at 11:06; Status DC Albuterol/ Ipratropium (Duoneb Neb) 1 ampule Q6HR NEB INH Last administered on 10/27/16 17:17; Start 10/23/16 at 18:15; Stop 10/27/16 at 18:15; Status DC Heparin Sodium (Porcine) (Heparin Inj) 5,000 units Q12H SQ Last administered on 10/25/16 20:12; Start 10/23/16 at 20:00; Stop 10/26/16 at 08:27; Status DC Miscellaneous Information 1 Q361D XX ; Start 10/23/16 at 18:15 Chlorhexidine Gluconate (Chlorhexidine 2% Cloth) Taper DAILY@04 TOP Last administered on 11/17/16 04:00; Start 10/24/16 at 04:00; Stop 10/20/17 at 03:59 Chlorhexidine Gluconate 3 pack 3 pack UNSCH PRN TOP HYGIENIC CARE; Start at 18:15 Propofol (Diprivan 1000 Mg/100ml Inj) 100 ml @ 0 mls/hr TITRATE IV Last administered on 10/23/16 21:09; Start 10/23/16 at 18:15; Stop 10/27/16 at 07:33 ; Status DC Water 250 ml 250 ml Q8HR G-TUBE Last administered on 10/23/16 23:50; Start at 22:00; Stop 10/24/16 at 06:23; Status DC Sodium Chloride 1,000 ml @ 999 mls/hr BOLUS ONCE IV Last administered on 10/23 19:43; Start 10/23/16 at 18:15; Stop 10/23/16 at 19:15; Status DC Potassium Chloride 100 ml @ 50 mls/hr Q2H IV Last administered on 10/23/16 21 :55; Start 10/23/16 at 19:00; Stop 10/23/16 at 22:59; Status DC Sodium Chloride 1,000 ml @ 125 mls/hr Q8H IV Last administered on 10/26/16 09 :03; Start 10/23/16 at 18:15; Stop 10/26/16 at 19:08; Status DC Piperacillin Sod/ Tazobactam Sod 100 ml @ 200 mls/hr Q6H IV Last administered on 10/31/16 10:48; Start 10/23/16 at 23:00; Stop 10/31/16 at 12:33; Status DC Azithromycin 500 mg/Sodium Chloride 250 ml @ 250 mls/hr Q24H IV Last administered on 10/30/16 17:17; Start 10/24/16 at 18:00; Stop 10/31/16 at 12:33 ; Status DC Vancomycin HCl/ Sodium Chloride (Vancomycin Inj/ NS 250 ml Inj) 250 ml @ 250 mls/hr ONCE ONCE IV Last administered on 10/23/16 19:43; Start 10/23/16 at 18 :15; Stop 10/23/16 at 19:14; Status DC Dextrose (D50w (Vial) Inj) 25 ml UNSCH PRN IV PUSH HYPOGLYCEMIA-SEE COMMENTS Last administered on 10/26/16 11:52; Start 10/23/16 at 18:15; Stop 10/30/16 at 20:26; Status DC Glucagon (Glucagon Inj) 1 mg UNSCH PRN OTHER HYPOGLYCEMIA-SEE COMMENTS; Start 10/23/16 at 18:15; Stop 10/30/16 at 20:27; Status DC Insulin Human Regular (NovoLIN R SUPPLEMENTAL SCALE) 1 Q6HR SQ ; Start 10/23/16 at 18:15; Stop 10/30/16 at 20:27; Status DC Iohexol 100 ml 100 ml STK-MED ONCE IV Last administered on 10/23/16 19:34; Start 10/23/16 at 19:34; Stop 10/23/16 at 19:35; Status DC Pharmacy Profile Note (Vancomycin Consult Pharmacy) 0 ml @ 0 mls/hr UNSCH OTHER ; Start 10/23/16 at 21:15; Stop 10/26/16 at 20:01; Status DC Lactulose (Lactulose Liq) 30 ml QID PO Last administered on 1/29/17at 19:49; Start 10/24/16 at 09:00; Stop 10/31/16 at 18:14; Status DC Sennosides (Senna Liq) 8.8 mg DAILY PO Last administered on 11/05/16 10:00; Start 10/24/16 at 09:00; Stop 11/05/16 at 14:36; Status DC Diatrizoate Meglum/ Diatrizoate Sod 60 ml 60 ml STK-MED ONCE PEG ; Start at 22:15; Stop 10/23/16 at 22:16; Status DC Fentanyl Citrate 250 ml @ 0 mls/hr TITRATE IV Last administered on 10/26/16 21 :38; Start 10/23/16 at 22:30; Stop 10/27/16 at 07:19; Status DC Fentanyl Citrate 250 ml @ As Directed STK-MED ONCE .ROUTE ; Start 10/23/16 at 22:37; Stop 10/23/16 at 22:38; Status DC Lactated Ringer's (Lr 1000 ml Inj) 1,000 ml @ 999 mls/hr BOLUS ONCE IV Last administered on 10/24/16 06:26; Start 10/24/16 at 06:15; Stop 10/24/16 at 07:15 ; Status DC Metoclopramide HCl 10 mg 10 mg ONCE ONCE PO Last administered on 10/24/16 06: 27; Start 10/24/16 at 06:30; Stop 10/24/16 at 06:31; Status DC Vancomycin HCl/ Sodium Chloride (Vancomycin Inj/ NS 250 ml Inj) 257.5 ml @ 250 mls/hr Q12H IV Last administered on 10/26/16 11:52; Start 10/24/16 at 12:00; Stop 10/26/16 at 20:01; Status DC Miscellaneous Information SPECIFIC LAB TO BE DRAWN:VANCOMYCIN TROUGH DATE TO... ONCE ONCE XX ; Start 10/25/16 at 11:45; Stop 10/25/16 at 11:46; Status DC Oxybutynin Chloride 5 mg 5 mg Q8HR PO Last administered on 11/19/16 06:00; Start 10/24/16 at 17:30 Potassium Chloride 100 ml @ 50 mls/hr Q2H PRN IV For Potassium 2.8 - 3.2 mEq/ L Last administered on 11/07/16 18:17; Start 10/26/16 at 05:15; Stop 11/15/16 at 08:28; Status DC Potassium Chloride (KCl 20 Meq Premix Inj) 100 ml @ 50 mls/hr Q2H PRN IV For Potassium 2.8 - 3.2 mEq/L Last administered on 11/05/16 04:48; Start 10/26/16 at 05:15; Stop 11/15/16 at 08:28; Status DC Potassium Chloride 40 meq 40 meq UNSCH PRN PO/TUBE For Potassium 3.3 - 3.5 mEq/ L Last administered on 11/11/16 12:54; Start 10/26/16 at 05:15; Stop 11/15/16 at 08:28; Status DC Potassium Chloride 100 ml @ 25 mls/hr UNSCH PRN IV For Potassium 3.3 - 3.5 mEq /L; Start 10/26/16 at 05:15; Stop 11/15/16 at 08:28; Status DC Potassium Chloride 100 ml @ 50 mls/hr Q2H PRN IV For Potassium 3.3 - 3.5 mEq/L ; Start 10/26/16 at 05:15; Stop 11/15/16 at 08:28; Status DC Magnesium Sulfate/ Sodium Chloride (Magnesium Sulfate Inj/NS Inj) 100 ml @ 50 mls/hr UNSCH PRN IV For Magnesium 0.9 - 1.1 mg/dL; Start 10/26/16 at 05:15; Stop 11/15/16 at 08:28; Status DC Magnesium Oxide 800 mg 800 mg UNSCH PRN PO For Magnesium 1.2 - 1.6 mg/dL; Start 10/26/16 at 05:15; Stop 11/15/16 at 08:28; Status DC Magnesium Sulfate/ Sodium Chloride (Magnesium Sulfate Inj/NS Inj) 100 ml @ 50 mls/hr UNSCH PRN IV For Magnesium 1.2 - 1.6 mg/dL Last administered on 10:01; Start 10/26/16 at 05:15; Stop 11/15/16 at 08:28; Status DC Potassium Phosphate 2000 mg 2,000 mg Q4H PRN PO For Phosphorus < 2.5 mg/dL; Start 10/26/16 at 05:15; Stop 11/15/16 at 08:28; Status DC Sodium Phosphate/ Sodium Chloride (Sodium Phosphate Inj/NS 250 ml Inj) 250 ml @ 42 mls/hr UNSCH PRN IV For Phosphorus < 2.5 mg/dL; Start 10/26/16 at 05:15; Stop 11/15/16 at 08:28; Status DC Potassium Chloride (KCl 40 Meq/30 ml Liq) 40 meq UNSCH PRN PO/TUBE SEE LABEL COMMENTS; Start 10/26/16 at 05:15; Stop 11/15/16 at 08:28; Status DC Potassium Phosphate 2000 mg 2,000 mg UNSCH PRN PO/TUBE SEE LABEL COMMENTS; Start 10/26/16 at 05:15; Stop 11/15/16 at 08:28; Status DC Potassium Phosphate/Sodium Chloride (Potassium Phosphate Inj/NS 250 ml Inj) 260 ml @ 42 mls/hr UNSCH PRN IV SEE LABEL COMMENTS Last administered on 11/07/16 11:54; Start 10/26/16 at 05:15; Stop 11/15/16 at 08:28; Status DC Polyethylene Glycol (Miralax) 17 gm DAILY PO Last administered on 10/28/16 08: 33; Start 10/26/16 at 09:00; Stop 11/05/16 at 14:36; Status DC Heparin Sodium (Porcine) (Heparin Inj) 5,000 units Q8H SQ Last administered on 11/19/16 08:13; Start 10/26/16 at 16:00 Miscellaneous Information SPECIFIC LAB TO BE DRAWN:S... ONCE ONCE XX Last administered on 10/26/16 11:15; Start 10/26/16 at 11:15; Stop 10/26/16 at 11:16 ; Status DC Sodium Biphosphate/ Sodium Phosphate (Fleets Enema (Adult)) 133 ml BID PRN MO UNTIL BOWEL MOVEMENT Last administered on 10/26/16 12:51; Start 10/26/16 at 12: 30 Sodium Biphosphate/ Sodium Phosphate (Fleets Enema (Adult)) 133 ml BID MO Last administered on 10/29/16 19:51; Start 10/26/16 at 12:45; Stop 10/30/16 at 13:50 ; Status DC Acetaminophen 650 mg 650 mg Q4H PRN PEG PAIN 1-10 AND/OR FEVER >101F Last administered on 11/19/16 08:15; Start 10/26/16 at 15:00 Dextrose/Sodium Chloride (D5W-10/02 NS 1000 ml Inj) 1,000 ml @ 100 mls/hr Q10H IV Last administered on 11/05/16 13:30; Start 10/26/16 at 19:15; Stop 11/05/16 at 14:28; Status DC Bisacodyl 10 mg 10 mg DAILY RECTAL Last administered on 10/28/16 08:35; Start 10/27/16 at 09:00; Stop 10/31/16 at 18:14; Status DC Propofol (Diprivan 1000 Mg/100ml Inj) 100 ml @ 0 mls/hr TITRATE IV Last administered on 11/03/16 08:49; Start 10/27/16 at 07:30; Stop 11/10/16 at 10:49 ; Status DC Methylnaltrexone [place] 6 mg 6 mg ONCE ONCE SQ Last administered on 01:28; Start 10/27/16 at 21:00; Stop 10/27/16 at 21:01; Status DC Ampicillin Sodium/ Sulbactam Sodium/ Sodium Chloride (Unasyn Inj/NS Inj) 100 ml @ 200 mls/hr Q6H IV Last administered on 11/03/16 09:22; Start 10/31/16 at 15: 00; Stop 11/03/16 at 11:42; Status DC Metoclopramide HCl (Reglan Inj) 10 mg STK-MED ONCE .ROUTE Last administered on 10/31/16 15:21; Start 10/31/16 at 15:21; Stop 10/31/16 at 15:22; Status DC Iohexol (Omnipaque 350 Inj) 40 ml STK-MED ONCE G-TUBE Last administered on 10/31 15:40; Start 10/31/16 at 15:55; Stop 10/31/16 at 15:56; Status DC Water (Free Water) 250 ml Q4HR G-TUBE Last administered on 11/05/16 13:29; Start 11/01/16 at 12:00; Stop 11/05/16 at 14:27; Status DC Pantoprazole Sodium (Protonix) 40 mg DAILY PO ; Start 11/02/16 at 09:00; Stop 11/02/16 at 09:00; Status DC Famotidine (Pepcid Liq) 20 mg BID NG ; Start 11/01/16 at 21:00; Stop 11/02/16 at 20:49; Status DC Hyoscyamine Sulfate (Levsin Liq) 0.125 mg ONCE ONCE PO Last administered on 21:08; Start 11/02/16 at 12:45; Stop 11/02/16 at 13:08; Status DC Spironolactone (Aldactone) 25 mg ONCE ONCE PO Last administered on 11/02/16 14 :07; Start 11/02/16 at 13:00; Stop 11/02/16 at 13:07; Status DC Famotidine 20 mg 20 mg BID NG Last administered on 11/19/16 08:13; Start at 21:00 Norepinephrine Bitartrate (Levophed-Dextrose Drip) 250 ml @ 0 mls/hr TITRATE IV Last administered on 11/04/16 14:55; Start 11/03/16 at 03:45; Stop 11/05/16 at 14:15; Status DC Terbutaline Sulfate 1 mg 1 mg UNSCH PRN SQ For Extravasation; Start 11/03/16 at 03:45; Stop 11/11/16 at 07:35; Status DC Piperacillin Sod/ Tazobactam Sod 100 ml @ 200 mls/hr Q8H IV Last administered on 11/13/16 12:26; Start 11/03/16 at 12:00; Stop 11/13/16 at 15:41; Status DC Pharmacy Profile Note 0 ml @ 0 mls/hr UNSCH OTHER ; Start 11/03/16 at 11:45; Stop 11/09/16 at 07:06; Status DC Micafungin Sodium 150 mg/Sodium Chloride 100 ml @ 100 mls/hr Q24H IV Last administered on 11/05/16 13:29; Start 11/03/16 at 13:00; Stop 11/06/16 at 10:14; Status DC Vancomycin HCl/ Sodium Chloride (Vancomycin Inj/ NS 250 ml Inj) 257.5 ml @ 250 mls/hr Q12H IV Last administered on 11/08/16 03:07; Start 11/03/16 at 14:00; Stop 11/08/16 at 14:22; Status DC Diatrizoate Meglum/ Diatrizoate Sod ( Gastroview Liq) 18 ml ONCE ONCE PO Last administered on 11/03/16 12:53; Start 11/03/16 at 12:30; Stop 11/03/16 at 12: 31; Status DC Miscellaneous Information SPECIFIC LAB TO BE DRAWN:VANCO TROUGH DATE TO BE DR... ONCE ONCE XX Last administered on 11/05/16 01:45; Start 11/05/16 at 01:45 ; Stop 11/05/16 at 01:46; Status DC Calcium Gluconate/ Dextrose (Calcium Gluconate Inj/D5W 100 ml Inj) 120 ml @ 120 mls/hr ONCE ONCE IV Last administered on 11/04/16 18:51; Start 11/04/16 at 18:15; Stop 11/04/16 at 19:15; Status DC Iohexol 90 ml 90 ml STK-MED ONCE IV Last administered on 11/04/16 18:16; Start 11/04/16 at 18:16; Stop 11/04/16 at 18:17; Status DC Potassium Chloride/Dextrose/ Sod Cl (D5-1/2 NS + KCl 20 Meq Inj) 1,000 ml @ 42 mls/hr [id number] IV Last administered on 11/09/16 12:55; Start 11/05/16 at 14:30; Stop 11/10/16 at 10:50; Status DC Polyethylene Glycol (Miralax) 17 gm BID TUBE ; Start 11/05/16 at 21:00; Stop 07/17 at 10:50; Status DC Sennosides (Senna Liq) 8.8 mg BID PO Last administered on 11/18/16 09:45; Start 11/05/16 at 21:00 Lactulose 30 ml 30 ml DAILY PO Last administered on 11/05/16 15:00; Start at 15:00; Stop 11/10/16 at 10:50; Status DC Calcium Gluconate/ Dextrose (Calcium Gluconate Inj/D5W 100 ml Inj) 120 ml @ 120 mls/hr ONCE ONCE IV Last administered on 11/06/16 10:37; Start 11/06/16 at 10:00; Stop 11/06/16 at 10:59; Status DC Miscellaneous Information SPECIFIC LAB TO BE ... ONCE ONCE XX Last administered on 11/08/16 14:00; Start 11/08/16 at 13:45; Stop 11/08/16 at 13:46; Status DC Vancomycin HCl/ Sodium Chloride (Vancomycin Inj/ NS 250 ml Inj) 257.5 ml @ 250 mls/hr Q18H IV Last administered on 11/09/16 04:30; Start 11/09/16 at 05:00; Stop 11/09/16 at 07:07; Status DC Alteplase, Recombinant (Cathflo Activase Inj) 2 mg ONCE ONCE INTRACATH Last administered on 11/09/16 22:30; Start 11/09/16 at 22:30; Stop 11/09/16 at 22:31; Status DC Aspirin 81 mg 81 mg DAILY CHEW Last administered on 11/19/16 08:13; Start 08/17 at 09:00 Levofloxacin/ Dextrose (Levaquin 750 Mg Premix Inj) 150 ml @ 100 mls/hr Q24H IV Last administered on 11/18/16 09:46; Start 11/17/16 at 10:00; Stop at 22:58; Status DC Date of Insertion: Nov 03, 2016 Line: Central Venous Catheter Side: Right Location: Internal, Jugular (vasoactive medication) A/P Assessment and Plan A/P Acute hypoxic respiratory failure secondary to aspiration pneumonia/Klebsiella, Pseudomonas. resolved- Extubated 11/09 keep on oxygen as needed to keep O2 sat > 90%.sputum culture ( 11/09) with pseudomonas- blood cultures from 11/17 negative so far. ID reevaluation appreciated; dc'ed Levaquin; will monitor off antibiotics for now. tacycardia; likely due to infection-will monitor- awaiting cardiology evaluation. History of tracheostomy status post decannulation. Cerebral palsy/Seizure disorder; continue antiepileptics Congenital blindness/Chronic contractures Chronic systolic heart failure. Echocardiogram 05/06 revealed EF 45-50%. Mild systolic dysfunction. No regional wall motion abnormality. Chronic Florinef use History of gastric ulcer; continue famotidine Colonic ileus/resolved. CT abdomen/pelvis 11/04 revealed cholelithiasis without cholecystitis. GJ tube in correct position. Conversion of gastric to GJ tube secondary to intractable nausea and vomiting Overactive bladder Microcytic anemia Thrombocytosis, reactive due to PNA DVT prophylaxis with subq heparin Osman Moreno MD Nov 19, 2016 12:10
--- NOTE | 2016-11-19 15:35 | MB ---
cc: DENISSE VILLAFANA M.D. DATE OF CONSULTATION: 11/19/2016. REASON FOR CONSULTATION: Bradycardia. HISTORY OF PRESENT ILLNESS: Mr. Thakur is a 36-year-old -Irish male previously evaluated a month ago with history of cerebral palsy, seizure disorder, congenital blindness, contractures, heart failure, gastric ulcer. The gentleman has a G-tube with continued feeding, over-active bladder, microcytic anemia. He had recent hospitalization due to pneumonia which was attributed. He was subsequently extubated on November 09, 2016. The gentleman again developed bradycardia. I was consulted for evaluation and management. The chart was reviewed. The patient was evaluated. Most of the information was obtained from the medical record and from talking to the nurse. ALLERGIES: None. SOCIAL HISTORY: Negative for smoking and drinking. MEDICATIONS: The gentleman is on: 1. Aspirin. 2. Pepcid. 3. Heparin. 4. Ditropan. 5. Florinef. 6. Dilantin. 7. Topamax. REVIEW OF SYSTEMS: Review of systems cannot be performed. The patient has poor verbal communication. PHYSICAL EXAMINATION: GENERAL: Alert, moving around the bed. Not oriented. VITAL SIGNS: Blood pressure 104/58, pulse around 112, respiratory rate 18 to 20. LUNGS: Ventilated. CARDIOVASCULAR: S1 and S2. No gallop. ABDOMEN: Abdomen with a J-PEG. EXTREMITIES: Severe contractures. EKGS: Electrocardiogram shows sinus tachycardia. No acute S-T and T wave changes. LABORATORY DATA: Hemoglobin is 9.3, white blood cell 11.7 and coming down. Potassium is 4.0, creatinine 0.54. INR 1.0. ASSESSMENT AND RECOMMENDATIONS: Mr. Thakur has had some episodes of bradycardia. He is in sinus tachycardia. Heart rate always above 100. He has some autonomic dysfunction. He has symptomatic. He is in bed. Sometime the heart rate drops in the 40s and the 30s but recuperates rapidly. He has severe contractures. The gentleman is not a good candidate for a pacemaker; but at the same time, I do not think he needs one. The gentleman is always in bed. There is no syncopal episode. There is no fainting. There is no seizure due to bradycardia. At this point, continue with current medical management. I will be available on a PRN basis. There is no need for pacing support. MD CECILE Garrison/SUNSHINE /3:19 PM /3:29 PM
[2016-11-20] VITALS: BP 105/62; PULSE 111; RESP 20; TEMP 98.6; O2SAT 95
[2016-11-20] MEDS: CHLORHEXIDINE GLUCONATE 2 % 1 PACK (2 CLOTHS) TOP SCH (04:00)
[2016-11-20 04:53] VITALS: BP 114/72; PULSE 104; RESP 20; TEMP 97.3; O2SAT 95
[2016-11-20] MEDS: HEPARIN SODIUM - SQ 10,000 UNITS/ML VIAL SQ SCH ×3 (04:55→16:00)
[2016-11-20] MEDS: OXYBUTYNIN CHLORIDE 5 MG TAB PO SCH ×2 (04:56→14:00)
[2016-11-20] MEDS: ACETAMINOPHEN 650 MG/20.3 ML UDC PEG PRN (04:57)
[2016-11-20 08:00] VITALS: BP 114/64; PULSE 106; RESP 16; TEMP 97.7; O2SAT 98
[2016-11-20] MEDS: FAMOTIDINE 20 MG TAB NG SCH (10:30)
--- NOTE | 2016-11-20 10:30 | HHI.FPPN ---
Subjective Remarks GT CLOGGED D/W RN Objective Vitals Vital Signs Date Time Temp Pulse Resp B/P Pulse Ox O2 Delivery O2 Flow Rate FiO2 11/20/16 08:00 97.7 106 16 114/64 98 11/20/16 04:53 97.3 104 20 114/72 95 11/20/16 00:00 98.6 111 20 105/62 95 11/19/16 20:38 99.3 116 19 102/63 97 11/19/16 18:28 98 21 11/19/16 16:44 98.8 117 19 118/64 98 11/19/16 12:16 98.4 112 20 104/58 94 I/O 11/19/16 11/19/16 11/19/16 11/20/16 11/20/16 11/20/16 07:00 15:00 23:00 07:00 15:00 23:00 Output Total 400 ml 700 ml 300 ml 200 ml Balance -400 ml -700 ml -300 ml -200 ml Output Urine Total 400 ml 700 ml 300 ml 200 ml # Bowel Movements 1 1 1 Result Diagram: 11/18/1662611/18/16626 Objective Remarks GENERAL: SKIN: Warm and dry. HEAD: Atraumatic. Normocephalic. EYES: Pupils equal and round. No scleral icterus. No injection or drainage. ENT: No nasal bleeding or discharge. Mucous membranes pink and moist. NECK: Trachea midline. No JVD. CARDIOVASCULAR: Regular rate and rhythm. RESPIRATORY: No accessory muscle use. Breath sounds equal bilaterally. b rales and ronchi. GASTROINTESTINAL: Abdomen soft, non-tender, nondistended. Hepatic and splenic margins not palpable. MUSCULOSKELETAL: Extremities without clubbing, cyanosis, or edema. Contracted extremities NEUROLOGICAL: Awake and alert. No obvious cranial nerve deficits. Motor grossly within normal limits. 1 out of 5 muscle strength in the arms and legs. Aphasic. PSYCHIATRIC: Agitated when examined, otherwise remains calm and encephalopathic Medications and IVs Current Medications Medications (Trade) Dose Ordered Sig/Carlotta Route Start Time Stop Time Status Last Admin (NS Flush) 2 ml UNSCH PRN IVF 10/23/16 17:45 11/16/16 21:42 (Dilantin Liq) 100 mg Q12HR PEG 10/23/16 21:00 11/19/16 21:49 (Topamax) 100 mg BID GT 10/23/16 21:00 11/19/16 21:49 (Florinef) 0.2 mg DAILY PO 10/24/16 09:00 11/19/16 08:13 Miscellaneous Information 1 Q361D XX 10/23/16 18:15 (Chlorhexidine 2% Cloth) Taper DAILY@04 TOP 10/24/16 04:00 10/20/17 03:59 11/17/16 04:00 (Chlorhexidine 2% Cloth) 3 pack UNSCH PRN TOP 10/23/16 18:15 (Ditropan) 5 mg Q8HR PO 10/24/16 17:30 11/20/16 04:56 (Heparin Inj) 5,000 units Q8H SQ 10/26/16 16:00 11/20/16 04:55 (Fleets Enema (Adult)) 133 ml BID PRN [place] 10/26/16 12:30 10/26/16 12:51 (Tylenol 650 Mg/ 20 ml Liq) 650 mg Q4H PRN PEG 10/26/16 15:00 11/20/16 04:57 (Pepcid) 20 mg BID NG 11/02/16 21:00 11/19/16 21:49 (Senna Liq) 8.8 mg BID PO 11/05/16 21:00 11/18/16 09:45 (Aspirin Chew) 81 mg DAILY CHEW 11/11/16 09:00 11/19/16 08:13 Date of Insertion: Nov 03, 2016 Line: Central Venous Catheter Side: Right Location: Internal, Jugular (vasoactive medication) A/P Assessment and Plan SEPSIS Acute hypoxic respiratory failure secondary to aspiration pneumonia/Klebsiella, Pseudomonas. Extubated 11/09 History of tracheostomy status post decannulation. CTA chest 10/23 revealed no pulmonary embolism but findings consistent with aspiration pneumonia Cerebral palsy Seizure disorder Congenital blindness Chronic contractures Lactic acidemia- resolved. History of sinus bradycardia Chronic systolic heart failure. Echocardiogram 05/06 revealed EF 4550%. Mild systolic dysfunction. No regional wall motion abnormality. History of dyslipidemia Chronic Florinef use History of gastric ulcer Colonic ileus/resolved. CT abdomen/pelvis 11/04 revealed cholelithiasis without cholecystitis. GJ tube in correct position. Conversion of gastric to GJ tube secondary to intractable nausea and vomiting History of splenectomy Overactive bladder Microcytic anemia Thrombocytosis, reactive due to PNA Chronic contractures PLAN: IR RECONSULT FOR CLOGGED GT BLOOD CULTURES AM LABS NC O2 prn OFF PRESSORS CARDIOLOGY CONSULT FOR TACHYCARDIA IS SZ PREC Florinef 0.2 mg daily Jevity 1.5 goal 70 cc an hour. free water PGT Pepcid for GI prophylaxis/history of gastric ulcer condom catheter for accurate I's and O's Sliding-scale insulin Patient with history of splenectomy. aspirin 81 mg daily. Peripheral smear results pending. Infectious disease consult PT evaluate and treat heparin subcutaneous Andrew St MD Nov 20, 2016 10:30
[2016-11-20] MEDS: FLUDROCORTISONE ACETATE 0.1 MG TAB PO SCH (10:31)
[2016-11-20] MEDS: TOPIRAMATE 100 MG TAB GT SCH (10:32)
[2016-11-20] MEDS: ASPIRIN 81 MG CHEW TAB CHEW SCH (10:32)
[2016-11-20] MEDS: PHENYTOIN SUSP 100 MG/4 ML CUP PEG SCH (10:33)
[2016-11-20] MEDS: SENNOSIDES SYRUP 8.8 MG/5 ML CUP PO SCH ×2 (10:34→21:00)
[2016-11-20 12:00] VITALS: BP 112/73; PULSE 86; RESP 17; TEMP 97.5; O2SAT 97
[2016-11-20 16:00] VITALS: BP 120/77; PULSE 89; RESP 18; TEMP 98.8; O2SAT 98
[2016-11-20 20:00] VITALS: BP 114/67; PULSE 74; RESP 18; TEMP 97.8; O2SAT 95
[2016-11-20] MEDS: DEXT 5%-NACL 0.45% 1000 ML INJ 1,000 ML IV SCH (20:05)
[2016-11-21] VITALS: BP 113/76; PULSE 70; RESP 18; TEMP 97.3; O2SAT 95
[2016-11-21] MEDS: FAMOTIDINE 20 MG TAB NG SCH ×3 (00:01→21:02)
[2016-11-21] MEDS: OXYBUTYNIN CHLORIDE 5 MG TAB PO SCH ×4 (00:01→21:09)
[2016-11-21] MEDS: TOPIRAMATE 100 MG TAB GT SCH ×3 (00:01→21:02)
[2016-11-21] MEDS: PHENYTOIN SUSP 100 MG/4 ML CUP PEG SCH ×3 (00:01→21:02)
[2016-11-21 04:00] VITALS: BP 110/74; PULSE 78; RESP 18; TEMP 97.4; O2SAT 96
[2016-11-21] MEDS: CHLORHEXIDINE GLUCONATE 2 % 1 PACK (2 CLOTHS) TOP SCH (04:00)
[2016-11-21 08:00] VITALS: BP 131/80; PULSE 81; RESP 16; TEMP 97.2; O2SAT 98
[2016-11-21] MEDS: HEPARIN SODIUM - SQ 10,000 UNITS/ML VIAL SQ SCH ×4 (08:00→23:25)
[2016-11-21] MEDS: ASPIRIN 81 MG CHEW TAB CHEW SCH (09:00)
[2016-11-21] MEDS: FLUDROCORTISONE ACETATE 0.1 MG TAB PO SCH (09:00)
[2016-11-21] MEDS: SENNOSIDES SYRUP 8.8 MG/5 ML CUP PO SCH ×2 (09:00→21:00)
[2016-11-21 12:30] VITALS: BP 127/65; PULSE 51; RESP 16; TEMP 95.9; O2SAT 97
--- NOTE | 2016-11-21 12:34 | HHI.FPPN ---
Subjective Remarks GT CLOGGED MOTHER CONSENTED NOW FOR IR PROCEDURE D/W RN Objective Vitals Vital Signs Date Time Temp Pulse Resp B/P Pulse Ox O2 Delivery O2 Flow Rate FiO2 11/21/16 08:00 97.2 81 16 131/80 98 11/21/16 04:00 97.4 78 18 110/74 96 11/21/16 00:00 97.3 70 18 113/76 95 11/20/16 20:00 97.8 74 18 114/67 95 11/20/16 16:00 98.8 89 18 120/77 98 I/O 11/20/16 11/20/16 11/20/16 11/21/16 11/21/16 11/21/16 07:00 15:00 23:00 07:00 15:00 23:00 Intake Total 200 ml Output Total 200 ml 500 ml 1600 ml Balance -200 ml -500 ml -1400 ml Intake Oral 200 ml Output Urine Total 200 ml 500 ml 1600 ml # Voids 2 # Bowel Movements 1 1 1 Result Diagram: 11/18/1662611/18/16626 Objective Remarks GENERAL: SKIN: Warm and dry. HEAD: Atraumatic. Normocephalic. EYES: Pupils equal and round. No scleral icterus. No injection or drainage. ENT: No nasal bleeding or discharge. Mucous membranes pink and moist. NECK: Trachea midline. No JVD. CARDIOVASCULAR: Regular rate and rhythm. RESPIRATORY: No accessory muscle use. Breath sounds equal bilaterally. b rales and ronchi. GASTROINTESTINAL: Abdomen soft, non-tender, nondistended. Hepatic and splenic margins not palpable. MUSCULOSKELETAL: Extremities without clubbing, cyanosis, or edema. Contracted extremities NEUROLOGICAL: Awake and alert. No obvious cranial nerve deficits. Motor grossly within normal limits. 1 out of 5 muscle strength in the arms and legs. Aphasic. PSYCHIATRIC: Agitated when examined, otherwise remains calm and encephalopathic Medications and IVs Current Medications Medications (Trade) Dose Ordered Sig/Carlotta Route Start Time Stop Time Status Last Admin (NS Flush) 2 ml UNSCH PRN IVF 10/23/16 17:45 11/16/16 21:42 (Dilantin Liq) 100 mg Q12HR PEG 10/23/16 21:00 11/21/16 00:01 (Topamax) 100 mg BID GT 10/23/16 21:00 11/21/16 00:01 (Florinef) 0.2 mg DAILY PO 10/24/16 09:00 11/20/16 10:31 Miscellaneous Information 1 Q361D XX 10/23/16 18:15 (Chlorhexidine 2% Cloth) Taper DAILY@04 TOP 10/24/16 04:00 10/20/17 03:59 11/17/16 04:00 (Chlorhexidine 2% Cloth) 3 pack UNSCH PRN TOP 10/23/16 18:15 (Ditropan) 5 mg Q8HR PO 10/24/16 17:30 11/21/16 05:27 (Heparin Inj) 5,000 units Q8H SQ 10/26/16 16:00 11/20/16 10:30 (Fleets Enema (Adult)) 133 ml BID PRN [place] 10/26/16 12:30 10/26/16 12:51 (Tylenol 650 Mg/ 20 ml Liq) 650 mg Q4H PRN PEG 10/26/16 15:00 11/20/16 04:57 (Pepcid) 20 mg BID NG 11/02/16 21:00 11/21/16 00:01 (Senna Liq) 8.8 mg BID PO 11/05/16 21:00 11/20/16 10:34 Aspirin 81 mg 81 mg DAILY CHEW 11/11/16 09:00 11/20/16 10:32 (D5W-10/02 NS 1000 ml Inj) 1,000 ml @ 50 mls/hr Q20H IV 11/20/16 20:00 11/20/16 20:05 Date of Insertion: Nov 03, 2016 Line: Central Venous Catheter Side: Right Location: Internal, Jugular (vasoactive medication) A/P Assessment and Plan SEPSIS, RESOLVED Acute hypoxic respiratory failure secondary to aspiration pneumonia/Klebsiella, Pseudomonas. Extubated 11/09 History of tracheostomy status post decannulation. CTA chest 10/23 revealed no pulmonary embolism but findings consistent with aspiration pneumonia Cerebral palsy Seizure disorder Congenital blindness Chronic contractures Lactic acidemia- resolved. History of sinus bradycardia Chronic systolic heart failure. Echocardiogram 05/06 revealed EF 4550%. Mild systolic dysfunction. No regional wall motion abnormality. History of dyslipidemia Chronic Florinef use History of gastric ulcer Colonic ileus/resolved. CT abdomen/pelvis 11/04 revealed cholelithiasis without cholecystitis. GJ tube in correct position. Conversion of gastric to GJ tube secondary to intractable nausea and vomiting History of splenectomy Overactive bladder Microcytic anemia Thrombocytosis, reactive due to PNA Chronic contractures PLAN: IR RECONSULT FOR CLOGGED GT BLOOD CULTURES AM LABS NC O2 prn OFF PRESSORS CARDIOLOGY CONSULT FOR TACHYCARDIA IS SZ PREC Florinef 0.2 mg daily Jevity 1.5 goal 70 cc an hour. free water PGT Pepcid for GI prophylaxis/history of gastric ulcer condom catheter for accurate I's and O's Sliding-scale insulin Patient with history of splenectomy. aspirin 81 mg daily. Peripheral smear results pending. Infectious disease consult PT evaluate and treat heparin subcutaneous Andrew St MD Nov 21, 2016 12:34
--- NOTE | 2016-11-21 15:48 | PD.RAD ---
Post Procedure Progress Note Pre Procedure Diagnosis: (1) Feeding tube blocked Post Procedure Diagnosis: (1) Feeding tube blocked Procedure Date: Nov 21, 2016 Supervising Radiologist: Gaston Wagner JR Proceduralist/Assist: Leanna Carvajal, RT(R), Ladi Conrad RT(R)() Anesthesia: Conscious Sedation Plan of Activity Patient to Unit: ROPU Patient Condition: Good See PACS Report for procedural detail/treatment Feeding Tube Gastro/Jejunostomy Replacement Filipino: 22 Findings: Occluded J tube portion of this GJ tube. Exchanged for new GJ tube. Jr. Bernard,Gaston Bryson MD Nov 21, 2016 15:48
[2016-11-21] MEDS ORDERED: IOHEXOL 350 MG/ML 50 ML BTL (for RAD DIAG) G-TUBE ONE (15:54)
--- NOTE | 2016-11-21 16:13 | RADRPT ---
EXAM DATE/TIME: 11/21/2016 15:25 [place] COMPARISON: No previous studies available for comparison. INDICATIONS : Patient is in need of an exchange of existing transgastric G-J tube due to clogging. Jejunal port is totally occluded. MEDICAL HISTORY : History of cerebral palsy, mental retrdation, seizure disorder, scoliosis, aspiration pneumonia, sinu s bradycardia, chronic contractures, systolic herat failure, gastric ulcer, overactive bladder, micro cytic anemia, thrombocystosis, cholelithiasis, congenital blindness. SURGICAL HISTORY : History of peg tube placement, laparotomy for small bowel onstruction, splenectomy, tracheostomy. ENCOUNTER: Subsequent ACUITY: >1 year PAIN SCORE: 0/10 FLUORO TIME: 5.0 minutes CONTRAST: 10 cc Omnipaque (iohexol) 350 DEVICE(S): 1.) 22 [place] Transgastric tube PROCEDURE : 1. Fluoroscopically guided gastrojejunostomy tube exchange. 2. Conscious sedation with continuous EKG and oximetry monitoring. The risks, benefits and alternatives to the procedure were explained and verbal and written consent w as obtained. The site was prepped in sterile fashion. Full sterile technique was used, including ca p, mask, sterile gloves and gown and a large sterile sheet. Hand hygiene and 2% chlorhexidine and/or betadine/alcohol prep was utilized per protocol for cutaneous antisepsis. Lidocaine jelly was appli ed to the ostomy. With fluoroscopic guidance a guidewire was passed through the previous gastrojejunostomy tube and a f resh tube was placed over the guidewire. The balloon was inflated with appropriate volume of saline. Injection of positive contrast demonstrates good position of the gastric and jejunal lumens of the tube. Conscious sedation was performed with the prescribed dosages and duration as above. The patient geri ated the procedure well and there were no complications. EKG and oximetry remained stable throughout the procedure. The patient was sent to post anesthesia recovery in stable condition. CONCLUSION: Uncomplicated gastrojejunostomy tube exchange as above. Gaston Wagner Jr., MD on November 21, 2016 at 16:10 Board Certified Radiologist. This report was verified electronically.
[2016-11-21] MEDS: DEXT 5%-NACL 0.45% 1000 ML INJ 1,000 ML IV SCH (16:30)
[2016-11-21 19:53] VITALS: BP 148/58; PULSE 50; RESP 14; TEMP 97.3; O2SAT 96
[2016-11-22] VITALS (7 sets, daily range): BP systolic 106–125; BP diastolic 58–82; PULSE 56–119; RESP 16–27; TEMP 96.1–97.8; O2SAT 94–100
[2016-11-22] MEDS: CHLORHEXIDINE GLUCONATE 2 % 1 PACK (2 CLOTHS) TOP SCH ×2 (03:49→22:06)
[2016-11-22] MEDS: OXYBUTYNIN CHLORIDE 5 MG TAB PO SCH ×3 (05:11→22:05)
[2016-11-22] MEDS: FLUDROCORTISONE ACETATE 0.1 MG TAB PO SCH (08:29)
[2016-11-22] MEDS: PHENYTOIN SUSP 100 MG/4 ML CUP PEG SCH ×2 (08:29→22:05)
[2016-11-22] MEDS: SENNOSIDES SYRUP 8.8 MG/5 ML CUP PO SCH ×2 (08:30→22:05)
[2016-11-22] MEDS: ASPIRIN 81 MG CHEW TAB CHEW SCH (08:30)
[2016-11-22] MEDS: TOPIRAMATE 100 MG TAB GT SCH ×2 (08:30→22:05)
[2016-11-22] MEDS: FAMOTIDINE 20 MG TAB NG SCH ×2 (08:30→22:05)
[2016-11-22] MEDS: HEPARIN SODIUM - SQ 10,000 UNITS/ML VIAL SQ SCH ×2 (08:30→15:51)
[2016-11-22 12:09] LABS: HEMATOCRIT 34.5 % (39.0-51.0); MEAN CELL VOLUME 72.5 FL (80.0-100.0); MEAN CORPUSCULAR HEMOGLOBIN 22.3 PG (27.0-34.0); MEAN CORPUSCULAR HGB CONC 30.7 % (32.0-36.0); PLATELET COUNT 624 TH/MM3 (150-450); RED BLOOD COUNT 4.76 MIL/MM3 (4.50-5.90); RED CELL DISTRIBUTION WIDTH 31.3 % (11.6-17.2); WHITE BLOOD COUNT 5.9 TH/MM3 (4.0-11.0)
[2016-11-22 12:18] LABS: HEMO FLAGS AUTO DIFF
[2016-11-22 12:41] LABS: BICARBONATE 24.2 MEQ/L (21.0-32.0); POTASSIUM 4.2 MEQ/L (3.5-5.1)
[2016-11-22 12:56] LABS: BANDS 1 % (0-6); EOSINOPHILS 8 % (0-4); NEUTROPHIL # MANUAL DIFF 2.2 TH/MM3 (1.8-7.7); POLYS (SEG NEUTROPHILS) 36 % (16-70); WBC DIFF SAMPLE 100
[2016-11-22 12:58] LABS: SPHEROCYTES OCC (NORMAL); TARGET CELLS 1+ (NORMAL)
[2016-11-22 12:59] LABS: KERATOCYTES OCC (NORMAL); PLATELET ESTIMATE SMEAR HIGH (NORMAL); PLATELET MORPHOLOGY NORMAL (NORMAL); SCAN/DIFF FINAL DIFF MANUAL
--- NOTE | 2016-11-22 15:11 | HHI.PR ---
Subjective Remarks The patient is nonverbal. No new concerns reported per nursing staff. Objective Vitals Vital Signs Date Time Temp Pulse Resp B/P Pulse Ox O2 Delivery O2 Flow Rate FiO2 11/22/16 11:05 96.1 99 22 110/60 94 11/22/16 08:45 96.4 82 27 112/82 100 11/22/16 04:00 97.5 56 20 122/68 99 11/22/16 00:37 97.4 56 16 106/58 97 11/21/16 19:53 97.3 50 14 148/58 96 I/O 11/21/16 11/21/16 11/21/16 11/22/16 11/22/16 11/22/16 07:00 15:00 23:00 07:00 15:00 23:00 Intake Total 200 ml 1316 ml 0 ml Output Total 1600 ml 800 ml 850 ml 400 ml Balance -1400 ml -800 ml 466 ml -400 ml Intake Oral 200 ml 0 ml Tube Feeding 1316 ml Output Urine Total 1600 ml 800 ml 850 ml 400 ml # Voids 2 # Bowel Movements 1 0 1 2 Result Diagram: 11/22/16 1105 11/22/16 1105 Objective Remarks GENERAL: Petite Afro-Romanian male patient laying on his side in position. SKIN: Warm and dry. HEAD: Normocephalic. EYES: No scleral icterus. No injection or drainage. NECK: Supple, trachea midline. No JVD or lymphadenopathy. CARDIOVASCULAR: Regular rate and rhythm without murmurs, gallops, or rubs. RESPIRATORY: Breath sounds equal bilaterally. No accessory muscle use. GASTROINTESTINAL: Abdomen soft, non-tender, nondistended. PEG intact. EXTREMITIES: Contractures of all 4 limbs. NEUROLOGICAL: Awake, alert. Nonfocal and does not follow commands. Date of Insertion: Nov 03, 2016 Line: Central Venous Catheter Side: Right Location: Internal, Jugular (vasoactive medication) A/P Assessment and Plan COVERAGE FOR DR. GARZA Sepsis due to aspiration pneumonia. Resolved. Off all antibiotics. Acute hypoxic respiratory failure secondary to aspiration pneumonia/Klebsiella, Pseudomonas. Extubated 11/09. History of tracheostomy status post decannulation. Cerebral palsy Seizure disorder - continue Dilantin, Topamax via G-tube. Congenital blindness Chronic contractures Chronic systolic heart failure. Echocardiogram 05/06 revealed EF 45%. Mild systolic dysfunction. No regional wall motion abnormality. He appears to be in good fluid balance. Chronic Florinef use History of gastric ulcer - continue Pepcid. Colonic ileus/resolved. CT abdomen/pelvis 11/04 revealed cholelithiasis without cholecystitis. GJ tube in correct position. Conversion of gastric to GJ tube secondary to intractable nausea and vomiting, history of Lebron fundoplication. History of splenectomy Overactive bladder - continue Ditropan. Patient currently has Watson. Microcytic anemia, iron deficient - currently stable. Thrombocytosis, reactive due to PNA - improving. Could be secondary to iron deficiency anemia. Or infection. -G J-tube clog - status post exchange by interventional radiology on 221. Continue tube feeds. -Intermittent tachycardia and bradycardia. Status post evaluation by cardiology. No indication for pacer at this time. Monitor. -heparin subcutaneous Iram Larry MD Nov 22, 2016 15:11
[2016-11-22] MEDS: ACETAMINOPHEN 650 MG/20.3 ML UDC PEG PRN (15:51)
[2016-11-23 00:20] VITALS: BP 125/70; PULSE 96; RESP 20; TEMP 96.5; O2SAT 99
[2016-11-23] MEDS: HEPARIN SODIUM - SQ 10,000 UNITS/ML VIAL SQ SCH ×3 (01:10→16:15)
[2016-11-23 04:29] VITALS: BP 104/66; PULSE 101; RESP 22; TEMP 97.6; O2SAT 98
[2016-11-23] MEDS: OXYBUTYNIN CHLORIDE 5 MG TAB PO SCH ×2 (06:11→12:51)
[2016-11-23 08:34] VITALS: BP 119/62; PULSE 84; RESP 18; TEMP 97.3; O2SAT 100
[2016-11-23] MEDS: PHENYTOIN SUSP 100 MG/4 ML CUP PEG SCH (09:46)
[2016-11-23] MEDS: FAMOTIDINE 20 MG TAB NG SCH (09:48)
[2016-11-23] MEDS: SENNOSIDES SYRUP 8.8 MG/5 ML CUP PO SCH (09:48)
[2016-11-23] MEDS: ASPIRIN 81 MG CHEW TAB CHEW SCH (09:49)
[2016-11-23] MEDS: TOPIRAMATE 100 MG TAB GT SCH (09:49)
[2016-11-23] MEDS: FLUDROCORTISONE ACETATE 0.1 MG TAB PO SCH (09:49)
[2016-11-23 11:33] LABS: AUTOMATED NEUTROPHIL # 2.1 TH/MM3 (1.8-7.7); BASOPHIL # 0.1 TH/MM3 (0-0.2); BASOPHIL % 2.2 % (0.0-2.0); EOSINOPHIL # 0.7 TH/MM3 (0-0.4); LYMPH % 47.4 % (9.0-44.0); LYMPHOCYTE # 3.2 TH/MM3 (1.0-4.8); MEAN CELL VOLUME 74.6 FL (80.0-100.0); MEAN CORPUSCULAR HEMOGLOBIN 22.5 PG (27.0-34.0); MEAN CORPUSCULAR HGB CONC 30.1 % (32.0-36.0); MONO % 9.8 % (0.0-8.0); NEUT % 30.6 % (16.0-70.0); PLATELET COUNT 548 TH/MM3 (150-450); RED BLOOD COUNT 4.43 MIL/MM3 (4.50-5.90); RED CELL DISTRIBUTION WIDTH 30.7 % (11.6-17.2); WHITE BLOOD COUNT 6.7 TH/MM3 (4.0-11.0)
[2016-11-23 11:34] LABS: HEMO FLAGS AUTO DIFF
[2016-11-23 12:07] LABS: BICARBONATE 24.5 MEQ/L (21.0-32.0); POTASSIUM 4.7 MEQ/L (3.5-5.1)
[2016-11-23 12:09] LABS: BANDS 1 % (0-6); BASOPHILS 3 % (0-2); CORRECTED NUCLEATED RBC 1 /100 WBC (0-0); EOSINOPHILS 11 % (0-4); NEUTROPHIL # MANUAL DIFF 1.7 TH/MM3 (1.8-7.7); PLATELET ESTIMATE SMEAR HIGH (NORMAL); PLATELET MORPHOLOGY NORMAL (NORMAL); POLYS (SEG NEUTROPHILS) 25 % (16-70); SCAN/DIFF FINAL DIFF MANUAL; WBC DIFF SAMPLE 100
[2016-11-23 12:10] LABS: KERATOCYTES OCC (NORMAL)
[2016-11-23 12:11] LABS: TARGET CELLS 2+ (NORMAL)
[2016-11-23] MEDS: ACETAMINOPHEN 650 MG/20.3 ML UDC PEG PRN (12:51)
[2016-11-23 13:27] VITALS: BP 108/81; PULSE 96; RESP 18; TEMP 98.8; O2SAT 100
--- NOTE | 2016-11-23 15:14 | HHI.FPPN ---
Subjective Remarks STABLE D/W RN Objective Vitals Vital Signs Date Time Temp Pulse Resp B/P Pulse Ox O2 Delivery O2 Flow Rate FiO2 11/23/16 13:27 98.8 96 18 108/81 100 11/23/16 08:34 97.3 84 18 119/62 100 11/23/16 04:29 97.6 101 22 104/66 98 11/23/16 00:20 96.5 96 20 125/70 99 11/22/16 20:35 97.3 119 22 115/73 98 11/22/16 16:51 18 11/22/16 15:35 96.3 106 22 112/78 99 I/O 11/22/16 11/22/16 11/22/16 11/23/16 11/23/16 11/23/16 07:00 15:00 23:00 07:00 15:00 23:00 Intake Total 1316 ml 623 ml 1127 ml Output Total 850 ml 1050 ml 350 ml 150 ml 400 ml Balance 466 ml -427 ml -350 ml 977 ml -400 ml Intake Oral 0 ml Tube Feeding 1316 ml 523 ml 887 ml Other 100 ml 240 ml Output Urine Total 850 ml 1050 ml 350 ml 150 ml 400 ml # Bowel Movements 1 2 1 1 Result Diagram: 11/23/16 1040 11/23/16 1040 Objective Remarks GENERAL: SKIN: Warm and dry. HEAD: Atraumatic. Normocephalic. EYES: Pupils equal and round. No scleral icterus. No injection or drainage. ENT: No nasal bleeding or discharge. Mucous membranes pink and moist. NECK: Trachea midline. No JVD. CARDIOVASCULAR: Regular rate and rhythm. RESPIRATORY: No accessory muscle use. Breath sounds equal bilaterally. b rales and ronchi. GASTROINTESTINAL: Abdomen soft, non-tender, nondistended. Hepatic and splenic margins not palpable. MUSCULOSKELETAL: Extremities without clubbing, cyanosis, or edema. Contracted extremities NEUROLOGICAL: Awake and alert. No obvious cranial nerve deficits. Motor grossly within normal limits. 1 out of 5 muscle strength in the arms and legs. Aphasic. PSYCHIATRIC: Agitated when examined, otherwise remains calm and encephalopathic Medications and IVs Current Medications Medications (Trade) Dose Ordered Sig/Carlotta Route Start Time Stop Time Status Last Admin (NS Flush) 2 ml UNSCH PRN IVF 10/23/16 17:45 11/16/16 21:42 (Dilantin Liq) 100 mg Q12HR PEG 10/23/16 21:00 11/23/16 09:46 (Topamax) 100 mg BID GT 10/23/16 21:00 11/23/16 09:49 (Florinef) 0.2 mg DAILY PO 10/24/16 09:00 11/23/16 09:49 Miscellaneous Information 1 Q361D XX 10/23/16 18:15 (Chlorhexidine 2% Cloth) Taper DAILY@04 TOP 10/24/16 04:00 10/20/17 03:59 11/17/16 04:00 (Chlorhexidine 2% Cloth) 3 pack UNSCH PRN TOP 10/23/16 18:15 (Ditropan) 5 mg Q8HR PO 10/24/16 17:30 11/23/16 12:51 (Heparin Inj) 5,000 units Q8H SQ 10/26/16 16:00 11/23/16 09:46 (Fleets Enema (Adult)) 133 ml BID PRN [place] 10/26/16 12:30 10/26/16 12:51 (Tylenol 650 Mg/ 20 ml Liq) 650 mg Q4H PRN PEG 10/26/16 15:00 11/23/16 12:51 (Pepcid) 20 mg BID NG 11/02/16 21:00 11/23/16 09:48 (Senna Liq) 8.8 mg BID PO 11/05/16 21:00 11/23/16 09:48 (Aspirin Chew) 81 mg DAILY CHEW 11/11/16 09:00 11/23/16 09:49 Date of Insertion: Nov 03, 2016 Line: Central Venous Catheter Side: Right Location: Internal, Jugular (vasoactive medication) A/P Assessment and Plan SEPSIS, RESOLVED Acute hypoxic respiratory failure secondary to aspiration pneumonia/Klebsiella, Pseudomonas. Extubated 11/09 History of tracheostomy status post decannulation. CTA chest 10/23 revealed no pulmonary embolism but findings consistent with aspiration pneumonia Cerebral palsy Seizure disorder Congenital blindness Chronic contractures Lactic acidemia- resolved. History of sinus bradycardia Chronic systolic heart failure. Echocardiogram 05/06 revealed EF 4550%. Mild systolic dysfunction. No regional wall motion abnormality. History of dyslipidemia Chronic Florinef use History of gastric ulcer Colonic ileus/resolved. CT abdomen/pelvis 11/04 revealed cholelithiasis without cholecystitis. GJ tube in correct position. Conversion of gastric to GJ tube secondary to intractable nausea and vomiting History of splenectomy Overactive bladder Microcytic anemia Thrombocytosis, reactive due to PNA Chronic contractures PLAN: DC, LIKELY DELAY UNTIL TOMORROW IR RECONSULT FOR CLOGGED GT BLOOD CULTURES AM LABS NC O2 prn OFF PRESSORS CARDIOLOGY CONSULT FOR TACHYCARDIA IS SZ PREC Florinef 0.2 mg daily Jevity 1.5 goal 70 cc an hour. free water PGT Pepcid for GI prophylaxis/history of gastric ulcer condom catheter for accurate I's and O's Sliding-scale insulin Patient with history of splenectomy. aspirin 81 mg daily. Peripheral smear results pending. Infectious disease consult PT evaluate and treat heparin subcutaneous Andrew St MD Nov 23, 2016 15:14
--- NOTE | 2016-11-23 15:18 | HHI.DS ---
Discharge Summary Admission Date Oct 23, 2016 at 17:15 Admitting Diagnosis severe sepsis/severe dehydration/hypokalemia (1) Feeding by G-tube (2) Pain (3) Respiratory failure (4) Hypotension (5) Feeding by G-tube (6) Hypokalemia (7) Respiratory failure requiring intubation (8) Dislodged gastrostomy tube (9) Sepsis (10) Cerebral palsy (11) Feeding tube blocked (12) Constipation (13) Lethargy Brief History Mr. Thakur is a 36-year-old male with past medical history significant for cerebral palsy, seizure disorder, mental retardation, previous history of hospitalization for aspiration pneumonia who presented to the [facility] emergency department after his family found him more disoriented than usual and also bouts of vomiting. In the emergency department the patient was found to be febrile with a temperature of 102.1 rectally, tachycardic with heart rate in the 130s and 150s and very tachypneic. In addition the patient was hypoxic on nonrebreather and he was subsequently intubated emergently. His labs significant for lactic acidemia with level of 7.9, hypernatremia with a sodium of 151, hypo-kalemia with K 3.0, creatinine of 1.22 and WBC 6.7. Chest x -ray prior to intubation showed no acute disease. However postextubation there was diffuse infiltrates throughout the right lung. Patient received IV fluids as a part of his resuscitation. Sepsis workup was initiated and patient was started on Zosyn IV as well as azithromycin. Blood cultures done on admission showed coag negative staph and sputum cultures show growth of Klebsiella pneumonia which is pansensitive. OG tube was placed which led to suctioning of another 400+ mL of green bilious fluid. OG tube could not be passed beyond a few centimeters. Infectious disease consulted for evaluation and management of severe sepsis, possible aspiration pneumonia in a patient with cerebral palsy as well as distorted GI anatomy. pt Was obstructed with a colon ileus and constipation. I was called to assume care of the patient today now that he is transferring out of the ICU. CBC/BMP: 11/23/16 1040 11/23/16 1040 Significant Findings Laboratory Tests Test 11/22/16 11/23/16 11:05 10:40 Hemoglobin 10.6 GM/DL 10.0 GM/DL (13.0-17.0) (13.0-17.0) Hematocrit 34.5 % 33.0 % (39.0-51.0) (39.0-51.0) Mean Corpuscular Volume 72.5 FL 74.6 FL (80.0-100.0) (80.0-100.0) Mean Corpuscular Hemoglobin 22.3 PG 22.5 PG (27.0-34.0) (27.0-34.0) Mean Corpuscular Hemoglobin 30.7 % 30.1 % Concent (32.0-36.0) (32.0-36.0) Red Cell Distribution Width 31.3 % 30.7 % (11.6-17.2) (11.6-17.2) Platelet Count 624 TH/MM3 548 TH/MM3 (150-450) (150-450) Lymphocytes % 46 % (9-44) 51 % (9-44) Monocytes % 9 % (0-8) 9 % (0-8) Eosinophils % 8 % (0-4) 11 % (0-4) Platelet Estimate HIGH (NORMAL) HIGH (NORMAL) Target Cells 1+ (NORMAL) 2+ (NORMAL) Chloride Level 109 MEQ/L (98-107) Creatinine 0.53 MG/DL 0.49 MG/DL (0.60-1.30) (0.60-1.30) Random Glucose 72 MG/DL (74-106) Red Blood Count 4.43 MIL/MM3 (4.50-5.90) Lymphocytes (%) (Auto) 47.4 % (9.0-44.0) Monocytes (%) (Auto) 9.8 % (0.0-8.0) Eosinophils (%) (Auto) 10.0 % (0.0-4.0) Basophils (%) (Auto) 2.2 % (0.0-2.0) Eosinophils # (Auto) 0.7 TH/MM3 (0-0.4) Basophils % 3 % (0-2) Neutrophils # (Manual) 1.7 TH/MM3 (1.8-7.7) Nucleated Red Blood Cells 1 /100 WBC (0-0) PE at Discharge GENERAL: SKIN: Warm and dry. HEAD: Atraumatic. Normocephalic. EYES: Pupils equal and round. No scleral icterus. No injection or drainage. ENT: No nasal bleeding or discharge. Mucous membranes pink and moist. NECK: Trachea midline. No JVD. CARDIOVASCULAR: Regular rate and rhythm. RESPIRATORY: No accessory muscle use. Clear to auscultation. Breath sounds equal bilaterally. GASTROINTESTINAL: Abdomen soft, non-tender, nondistended. Hepatic and splenic margins not palpable. MUSCULOSKELETAL: Extremities without clubbing, cyanosis, or edema. No obvious deformities. NEUROLOGICAL: Awake and alert. No obvious cranial nerve deficits. Motor grossly within normal limits. Five out of 5 muscle strength in the arms and legs. Hospital Course 36 Y AAM, ADMIT W - SEPSIS, RESOLVED Acute hypoxic respiratory failure secondary to aspiration pneumonia/Klebsiella, Pseudomonas. Extubated 11/09 History of tracheostomy status post decannulation. CTA chest 10/23 revealed no pulmonary embolism but findings consistent with aspiration pneumonia Cerebral palsy Seizure disorder Congenital blindness Chronic contractures Lactic acidemia- resolved. History of sinus bradycardia Chronic systolic heart failure. Echocardiogram 05/06 revealed EF 4550%. Mild systolic dysfunction. No regional wall motion abnormality. History of dyslipidemia Chronic Florinef use History of gastric ulcer Colonic ileus/resolved. CT abdomen/pelvis 11/04 revealed cholelithiasis without cholecystitis. GJ tube in correct position. Conversion of gastric to GJ tube secondary to intractable nausea and vomiting History of splenectomy Overactive bladder Microcytic anemia Thrombocytosis, reactive due to PNA Chronic contractures PLAN: DC, LIKELY DELAY UNTIL TOMORROW IR RECONSULT FOR CLOGGED GT BLOOD CULTURES AM LABS NC O2 prn OFF PRESSORS CARDIOLOGY CONSULT FOR TACHYCARDIA IS SZ PREC Florinef 0.2 mg daily Jevity 1.5 goal 70 cc an hour. free water PGT Pepcid for GI prophylaxis/history of gastric ulcer condom catheter for accurate I's and O's Sliding-scale insulin Patient with history of splenectomy. aspirin 81 mg daily. Peripheral smear results pending. Infectious disease consult PT evaluate and treat heparin subcutaneous DC HOME TODAY Discharge Disposition: Disch w/ Home Health Serv Discharge Instructions DIET: Follow Instructions for: On Tube Feeding Activities you can perform: Regular-No Restrictions Follow up Referrals: PCP Follow-up - 2-[address] GARZA Continued Medications: Aspirin (Aspirin/Enteric) 81 Mg Tab 81 MG .XX DAILY MN #30 Ref 11 TAB Feeding Tubes - Pump (Kangaroo Scottie Pump Set/An) 1 Mis Mis EA #1 Fludrocortisone Acetate (Florinef) 0.1 Mg Tab 0.2 MG PO DAILY hytn Days 30 Ref 11 TAB Nutritional Supplements (Jevity 1.5 Ang) Ang Liq 1 CAN PEG CONTINUOUS infusing at 60/hr continuous NUTRITION Days 30 Ref 2 ML Phenytoin (Phenytoin) 125 Mg/5 Ml Lyla 100 MG PEG Q12HR sz Days 30 Ref 11 BOTTLE Topiramate (Topamax) 100 Mg Tab 100 MG GT BID seizure Days 30 TAB Discontinued Medications: Hyoscyamine Sulfate (Hyoscyamine Sulfate) 0.125 Mg Tab 0.125 MG PO Q6H SECRTS Days 7 Ref 0 TAB Scopolamine (Transderm-Scop) 1 Patch Patch 1 PATCH TD Q3D SECRT Days 30 Ref 11 PATCH Andrew Garza MD Nov 23, 2016 15:18
--- NOTE | 2016-11-23 15:19 | HHI.FF ---
Face to Face Verification Diagnosis: (1) Lobar pneumonia (2) Dilantin toxicity (3) Constipation (4) Lethargy (5) Bradycardia (6) Dyspnea (7) Cardiomyopathy (8) Pneumonia (9) Seizure cerebral (10) Development delay (11) Pain Occupational Therapy Order: Evaluate and Treat Home Health Nursing Order: Medical education Signs/symptoms of disease process Medication education-adverse effect Wound care and dressing changes Nursing assessment with vital signs Home Health Aide Order: To Assist In: Bathing and personal care, volunteer manager and meal prep Tube Rebuilder Order: To Evaluate: Living conditions/environment, Support services Order: To Provide: Long range planning, Community services I have seen patient Remigio Thakur on 11/23/16. My clinical findings support the need for the requested home health care services because: Ltd mobility - disease progression Patient has SOB Deconditioned w/ increased weakness Med compliance is questionable Limited ability to care for self Need for psychosocial assistance Impaired cognition/judgement High risk of falls Infection w/ risk of complications I certify that my clinical findings support that this patient is homebound because: Impaired cognitive ability/safety Unsafe to leave home unassisted Need for psychosocial assistance [id number] bed/chair Unable to use public transportation Andrew St MD Nov 23, 2016 15:18
[2016-11-23 16:15] VITALS: BP 107/67; PULSE 74; RESP 16; TEMP 97.6; O2SAT 100
== END 2016-11-23 19:07 | disposition home health service (06) | DRG 870 ==
LOC: NEPC 15:10 → NEDH 17:15 → N03A 10-24 01:30 → N05B 11-14 18:07
PROVIDERS: ADMIT Internal Medicine Critical Care Medicine; ATTEND Family Medicine
PROC: 0BH17EZ Insertion of Endotracheal Airway into Trachea, Via Natural or Artificial Opening (ICD-10-PCS; principal; 2016-10-23)
PROC: 5A1955Z Respiratory Ventilation, Greater than 96 Consecutive Hours (ICD-10-PCS; 2016-10-23)
PROC: 0D20XUZ Change Feeding Device in Upper Intestinal Tract, External Approach (ICD-10-PCS; 2016-10-23)
PROC: 05HQ33Z Insertion of Infusion Device into Left External Jugular Vein, Percutaneous Approach (ICD-10-PCS; 2016-10-23)
PROC: 30233N1 Transfusion of Nonautologous Red Blood Cells into Peripheral Vein, Percutaneous Approach (ICD-10-PCS; 2016-10-25)
PROC: 0DHA3UZ Insertion of Feeding Device into Jejunum, Percutaneous Approach (ICD-10-PCS; 2016-10-31)
PROC: 02HV33Z Insertion of Infusion Device into Superior Vena Cava, Percutaneous Approach (ICD-10-PCS; 2016-11-03)
PROC: 0D2DXUZ Change Feeding Device in Lower Intestinal Tract, External Approach (ICD-10-PCS; 2016-11-21)
DX: A41.9 Sepsis, unspecified organism (principal); J96.01 Acute respiratory failure with hypoxia; J69.0 Pneumonitis due to inhalation of food and vomit; R65.21 Severe sepsis with septic shock; G93.41 Metabolic encephalopathy; J15.0 Pneumonia due to Klebsiella pneumoniae; E87.2 Acidosis; K56.7 Ileus, unspecified; N17.9 Acute kidney failure, unspecified; I50.22 Chronic systolic (congestive) heart failure; E87.0 Hyperosmolality and hypernatremia; Z43.1 Encounter for attention to gastrostomy; N32.81 Overactive bladder; M41.9 Scoliosis, unspecified; G80.9 Cerebral palsy, unspecified; G40.909 Epilepsy, unspecified, not intractable, without status epilepticus; F79 Unspecified intellectual disabilities; H47.619 Cortical blindness, unspecified side of brain; R00.1 Bradycardia, unspecified; D50.9 Iron deficiency anemia, unspecified; E87.6 Hypokalemia; K80.20 Calculus of gallbladder without cholecystitis without obstruction; R11.2 Nausea with vomiting, unspecified; K59.00 Constipation, unspecified; E86.0 Dehydration; E86.1 Hypovolemia; I10 Essential (primary) hypertension; K21.9 Gastro-esophageal reflux disease without esophagitis; K31.84 Gastroparesis; R53.83 Other fatigue; R00.0 Tachycardia, unspecified; H54.0 Blindness, both eyes; Z87.11 Personal history of peptic ulcer disease; Z87.01 Personal history of pneumonia (recurrent)
CPT/HCPCS: 31500; 36430; 36556; 36600; 49446; 49452; 71010; 71020; 71260; 71275; 74000; 74177; 76937; 80048; 80053; 80061; 80185; 80186; 80202; 81001; 82550; 82728; 82805; 82947; 82948; 83540; 83550; 83605; 83690; 83735; 84100; 84132; 84155; 84466; 84484; 85007; 85014; 85018; 85025; 85027; 85048; 85060; 85610; 85652; 85730; 86140; 86850; 86900; 86901; 86920; 87040; 87070; 87077; 87086; 87186; 87205; 87493; 87641; 87804; 93005; 94002; 94003; 94640; 94664; 96374; C1769; C1874; C1887; C9113; J0295; J0456; J0610; J1644; J1956; J2212; J2248; J2543; J2765; J2997; J3010; J3370; J3475; J3480; J7030; J7050; J7120; P9016; Q9963; Q9967

== ENCOUNTER 2017-04-28 01:30 | Inpatient (IN) | payer OTHER ==
[2017-04-28] VITALS (14 sets, daily range): BP systolic 100–120; BP diastolic 62–81; PULSE 86–122; RESP 16–29; TEMP 97.4–99.1; O2SAT 92–98
[~2017-04-28] VITALS: Ht 152.4 cm; Wt 40.9 kg
[~2017-04-28 01:30] MED LIST changes: -HYOS.125 PO; -SCOP1PAT TD
[2017-04-28] MEDS ORDERED: TRAZ50TA12 PO (02:06)
[2017-04-28] MEDS ORDERED: PHEN125S9 PO (02:08)
[2017-04-28] MEDS ORDERED: TOPA100T11 PO (02:08)
[2017-04-28] MEDS ORDERED: FLUD.1 PO (02:08)
[2017-04-28] MEDS ORDERED: ASPI-110 PO (02:08)
[2017-04-28] MEDS ORDERED: ALPR.5 PO (02:08)
[2017-04-28] MEDS ORDERED: SODIUM CHLOR 0.9% 1000 ML INJ 1,000 ML IV SCH (02:17)
[2017-04-28] MEDS ORDERED: ONDANSETRON HCL 4 MG/2 ML VIAL IVP ONE (02:30)
[2017-04-28] MEDS ORDERED: SODIUM CHLORIDE 0.9% FLUSH 10 ML FLUSH IV FLUSH PRN ×2 (02:30→08:30)
--- NOTE | 2017-04-28 02:48 | PD ---
HPI Chief Complaint: GI Complaint Time Seen by Provider: 02:24 Travel History International Travel<30 days: No Contact w/Intl Traveler<30days: No Traveled to known affect area: No History of Present Illness HPI 36-year-old male with history of cerebral palsy, seizures currently on Dilantin , presents to the ER today brought in by mom because he has been nauseous and vomiting today. She denies any fevers, coughing, shortness of breath, diarrhea , or any other symptoms. Mom had talked to his physician because she thought that he may have been constipated, but he did have a bowel movement yesterday according to mom. He is nonverbal and not able to give me any further history. Modifying Factors: None Associated Signs & Symptoms: Nausea and vomiting Risk Factors: None PFSH Past Medical History Autoimmune Disease: No Blood Disorders: No Cancer: No Cardiovascular Problems: Yes (bradycardia hx) Cerebral Palsy: Yes Chemotherapy: No Developmental Delay: Yes Diminished Hearing: No Endocrine: No Gastrointestinal Disorders: Yes (J TUBE ) GERD: Yes Genitourinary: No Hiatal Hernia: Yes Immune Disorder: No Musculoskeletal: Yes (C.P --- SCOLIOSIS) Neurologic: Yes (CEREBRAL PALSY, SEVERE DEVELOPMENTAL DELAY) Psychiatric: No Respiratory: Yes (PNA) Immunizations Current: Yes Radiation Therapy: No Seizures: Yes Shingles: Yes Past Surgical History Abdominal Surgery: Yes (2000 EXP LAP SBO, HECTOR FUNDOPLICATION, NEW PEG SITE MARCH 2007 ) Body Medical Devices: G-TUBE,RING AROUND ESOPHAGUS Cardiac Surgery: No Ear Surgery: No Endocrine Surgery: No Eye Surgery: No Genitourinary Surgery: No Gynecologic Surgery: No Neurologic Surgery: Yes (HISTORY OF SEIZURES) Oral Surgery: No Thoracic Surgery: No Other Surgery: Yes (G-TUBE, SPLEEN REMOVED ) Social History Alcohol Use: No Tobacco Use: No Substance Use: No Allergies-Medications (Allergen,Severity, Reaction): Coded Allergies: *MDRO Multi-Drug Resistant Organism (Verified Adverse Reaction, Unknown, ) MDR Pseudomonas (sputum) - 11/09/16 Reported Meds & Prescriptions Reported Meds & Active Scripts Active Reported Fludrocortisone (Fludrocortisone Acetate) 0.1 Mg Tab 0.2 Mg PO DAILY Aspirin 81 (Aspirin) 81 Mg Tabdr 81 Mg PO DAILY Phenytoin 100 Mg/4 Ml Oral.susp 100 Mg PO BID Topamax (Topiramate) 100 Mg Tab 100 Mg PO BID Xanax (Alprazolam) 0.5 Mg Tab 0.5 Mg PO Q8H PRN Trazodone (Trazodone HCl) 50 Mg Tab 25 Mg PO PRN PRN Review of Systems ROS Limitations: Speech Impaired Physical Exam Narrative GENERAL: Nonverbal middle age -Emirati male with cerebral palsy, contracted limbs, awake. SKIN: Focused skin assessment warm/dry. HEAD: Atraumatic. Normocephalic. EYES: Pupils equal and round. No scleral icterus. No injection or drainage. ENT: No nasal bleeding or discharge. Mucous membranes pink and moist. NECK: Trachea midline. No JVD. CARDIOVASCULAR: Regular rate and rhythm. No murmur appreciated. RESPIRATORY: No accessory muscle use. Clear to auscultation. Breath sounds equal bilaterally. GASTROINTESTINAL: Abdomen soft, non-tender, nondistended. Hepatic and splenic margins not palpable. PEG tube appears to be in place. MUSCULOSKELETAL: No obvious deformities. No clubbing. No cyanosis. No edema. NEUROLOGICAL: Awake and alert. Contracted. Moving all 4 extremities. Nonverbal. Face is symmetrical.. PSYCHIATRIC: Nonverbal. Awake. Data Data Last Documented VS Vital Signs Date Time Temp Pulse Resp B/P Pulse Ox O2 Delivery O2 Flow Rate FiO2 04/28/17 07:30 107 16 111/77 92 Room Air 04/28/17 01:34 97.4 Orders Complete Blood Count With Diff (04/28/17 02:17) Comprehensive Metabolic Panel (04/28/17 02:17) Lipase (04/28/17 02:17) Iv Access Insert/Monitor (04/28/17 02:17) Ecg Monitoring (04/28/17 02:17) Oximetry (04/28/17 02:17) Ondansetron Inj (Zofran Inj) (04/28/17 02:30) Sodium Chlor 0.9% 1000 Ml Inj (Ns 1000 M (04/28/17 02:17) Sodium Chloride 0.9% Flush (Ns Flush) (04/28/17 02:30) Chest, Single Ap (04/28/17 02:24) Abdomen, Flat & Upright (04/28/17 02:24) Phenytoin (Dilantin) (04/28/17 02:45) Ondansetron Odt (Zofran Odt) (04/28/17 03:30) Ct Abd/Pel W Iv Contrast(Rout) (04/28/17 06:00) Iodixanol 320 Inj (Rad Ct) (Visipaque 32 (04/28/17 06:27) Insert Ng Tube (04/28/17 07:16) Blood Culture (04/28/17 07:31) Piperacil-Tazo 4.5 Gm Premix (Zosyn 4.5 (04/28/17 07:31) Azithromycin Inj (Zithromax Inj) (04/28/17 07:45) Admit Order (Ed Use Only) (04/28/17 08:24) Labs Laboratory Tests Test 04/28/17 04/28/17 05:10 07:05 Sodium Level 140 MEQ/L Potassium Level 3.9 MEQ/L Chloride Level 102 MEQ/L Carbon Dioxide Level 25.0 MEQ/L Anion Gap 13 MEQ/L Blood Urea Nitrogen 37 MG/DL Creatinine 1.89 MG/DL Estimat Glomerular Filtration 50 ML/MIN Rate Random Glucose 105 MG/DL Calcium Level 8.9 MG/DL Total Bilirubin 0.7 MG/DL Aspartate Amino Transf 31 U/L (AST/SGOT) Alanine Aminotransferase 68 U/L (ALT/SGPT) Alkaline Phosphatase 121 U/L Total Protein 10.0 GM/DL Albumin 3.4 GM/DL Lipase 51 U/L Phenytoin (Dilantin) Level 0.6 MCG/ML White Blood Count 20.1 TH/MM3 Red Blood Count 5.03 MIL/MM3 Hemoglobin 12.9 GM/DL Hematocrit 39.4 % Mean Corpuscular Volume 78.4 FL Mean Corpuscular Hemoglobin 25.6 PG Mean Corpuscular Hemoglobin 32.7 % Concent Red Cell Distribution Width 19.4 % Platelet Count 337 TH/MM3 Mean Platelet Volume 8.3 FL Neutrophils (%) (Auto) 93.5 % Lymphocytes (%) (Auto) 2.4 % Monocytes (%) (Auto) 2.9 % Eosinophils (%) (Auto) 0.1 % Basophils (%) (Auto) 1.1 % Neutrophils # (Auto) 18.9 TH/MM3 Lymphocytes # (Auto) 0.5 TH/MM3 Monocytes # (Auto) 0.6 TH/MM3 Eosinophils # (Auto) 0.0 TH/MM3 Basophils # (Auto) 0.2 TH/MM3 CBC Comment AUTO DIFF Differential Comment AUTO DIFF CONFIRMED B-Type Natriuretic Peptide 10 PG/ML MDM Medical Decision Making Medical Screen Exam Complete: Yes Emergency Medical Condition: Yes Medical Record Reviewed: Yes Interpretation(s) Laboratory Tests Test 04/28/17 04/28/17 05:10 07:05 Blood Urea Nitrogen 37 MG/DL (7-18) Creatinine 1.89 MG/DL (0.60-1.30) Estimat Glomerular Filtration 50 ML/MIN (>89) Rate Alkaline Phosphatase 121 U/L (45-117) Total Protein 10.0 GM/DL (6.4-8.2) Lipase 51 U/L (73-393) Phenytoin (Dilantin) Level 0.6 MCG/ML (10.0-20.0) White Blood Count 20.1 TH/MM3 (4.0-11.0) Hemoglobin 12.9 GM/DL (13.0-17.0) Mean Corpuscular Volume 78.4 FL (80.0-100.0) Mean Corpuscular Hemoglobin 25.6 PG (27.0-34.0) Red Cell Distribution Width 19.4 % (11.6-17.2) Neutrophils (%) (Auto) 93.5 % (16.0-70.0) Lymphocytes (%) (Auto) 2.4 % (9.0-44.0) Neutrophils # (Auto) 18.9 TH/MM3 (1.8-7.7) Lymphocytes # (Auto) 0.5 TH/MM3 (1.0-4.8) Last 24 hours Impressions Chest X-Ray 04/28/17223 Signed Impressions: Service Date/Time: Friday, April 28, 2017 02:41 - CONCLUSION: Lungs are grossly clear. Pronounced rightward thoracic scoliosis Devin Hassan MD Abdomen X-Ray 04/28/17223 Signed Impressions: Service Date/Time: Friday, April 28, 2017 02:30 - CONCLUSION: G-tube in good position. Moderate air throughout the colon. Both hips remain dislocated Devin Hassan MD Differential Diagnosis Nausea, vomitinggastroenteritis versus dehydration versus metabolic issues versus obstruction Narrative Course Patient was given nausea medications in the ER but continued to vomit. Initial x-rays does not show any signs of acute obstruction. However, CAT scan was ordered for further evaluation and shows signs of ileus. Case had been discussed with Dr. Espinal. Lab work shows leukocytosis of uncertain etiology only may be secondary to the ileus. At this point, my plan would be to admit the patient for further treatment and observation of ileus. NG tube was ordered for the patient and plan would be to admit the patient for further treatment. Diagnosis Primary Impression: Intractable vomiting Additional Impressions: Ileus Leukocytosis Admitting Information Admitting Physician Requests: Admit Feliberto Rodney MD Apr 28, 2017 02:48
--- NOTE | 2017-04-28 03:01 | RADRPT ---
EXAM DATE/TIME: 04/28/2017 02:41 [facility] COMPARISON: CHEST SINGLE AP, November 12, 2016, 5:18. INDICATIONS : Vomitting. MEDICAL HISTORY : Cerebral palsy, seizures. SURGICAL HISTORY : None. ENCOUNTER: Initial ACUITY: 1 day PAIN SCORE: Non-responsive. LOCATION: Bilateral chest FINDINGS: A single view of the chest demonstrates the lungs to be symmetrically aerated without evidence of mas s, infiltrate or effusion. The cardiomediastinal contours are unremarkable. Pronounced rightward tho racic scoliosis CONCLUSION: Lungs are grossly clear. Pronounced rightward thoracic scoliosis Devin Hassan MD on April 28, 2017 at 2:59 Board Certified Radiologist. This report was verified electronically.
--- NOTE | 2017-04-28 03:07 | RADRPT ---
EXAM DATE/TIME: 04/28/2017 02:30 [facility] COMPARISON: No previous studies available for comparison. INDICATIONS : Vomitting. MEDICAL HISTORY : Cerebral palsy, seizures. SURGICAL HISTORY : None. ENCOUNTER: Initial ACUITY: 1 day PAIN SCORE: Non-responsive. LOCATION: abdomen FINDINGS: Supine and upright views of the abdomen were performed. There is a moderate amount of air within the colon. The G-tube is in good position. The lower lungs are clear. No evidence of free intraperitone al gas. Both hips remain dislocated. CONCLUSION: G-tube in good position. Moderate air throughout the colon. Both hips remain dislocated Devin Hassan MD on April 28, 2017 at 3:05 Board Certified Radiologist. This report was verified electronically.
[2017-04-28] MEDS ORDERED: ONDANSETRON ODT 4 MG TAB PO ONE (03:30)
[2017-04-28 05:48] LABS: ALKALINE PHOSPHATASE 121 U/L (45-117); TOTAL BILIRUBIN ADULT 0.7 MG/DL (0.2-1.0)
[2017-04-28 05:49] LABS: ALT (GPT) 68 U/L (12-78); ANION GAP 13 MEQ/L (5-15); AST (GOT) 31 U/L (15-37); BLOOD UREA NITROGEN 37 MG/DL (7-18); CHLORIDE 102 MEQ/L (98-107); GLOMERULAR FILTRATION RATE 50 ML/MIN (>89); SODIUM (NA) 140 MEQ/L (136-145)
[2017-04-28 05:50] LABS: POTASSIUM 3.9 MEQ/L (3.5-5.1)
[2017-04-28] MEDS ORDERED: IODIXANOL 320 MG/ML 10 ML VIAL (for Rad CT) IV ONE (06:27)
[2017-04-28 07:21] LABS: AUTOMATED NEUTROPHIL # 18.9 TH/MM3 (1.8-7.7); BASOPHIL # 0.2 TH/MM3 (0-0.2); BASOPHIL % 1.1 % (0.0-2.0); EOSINOPHIL % 0.1 % (0.0-4.0); HEMATOCRIT 39.4 % (39.0-51.0); LYMPH % 2.4 % (9.0-44.0); LYMPHOCYTE # 0.5 TH/MM3 (1.0-4.8); MEAN CELL VOLUME 78.4 FL (80.0-100.0); MEAN CORPUSCULAR HEMOGLOBIN 25.6 PG (27.0-34.0); MEAN CORPUSCULAR HGB CONC 32.7 % (32.0-36.0); MONO % 2.9 % (0.0-8.0); NEUT % 93.5 % (16.0-70.0); PLATELET COUNT 337 TH/MM3 (150-450); RED BLOOD COUNT 5.03 MIL/MM3 (4.50-5.90); RED CELL DISTRIBUTION WIDTH 19.4 % (11.6-17.2); WHITE BLOOD COUNT 20.1 TH/MM3 (4.0-11.0)
[2017-04-28 07:24] LABS: HEMO FLAGS AUTO DIFF
[2017-04-28] MEDS ORDERED: PIPERACIL-TAZO 4.5 GM PREMIX 100 ML IV STA (07:31)
[2017-04-28] MEDS ORDERED: AZITHROMYCIN INJ 500 MG in SODIUM CHLOR 0.9% 250 ML INJ 250 ML IV ONE (07:45)
[2017-04-28 07:51] LABS: SCAN/DIFF AUTO DIFF CONFIRMED
--- NOTE | 2017-04-28 08:12 | RADRPT ---
EXAM DATE/TIME: 04/28/2017 06:24 [facility] COMPARISON: CT ABDOMEN & PELVIS W CONTRAST, November 04, 2016, 17:38. INDICATIONS : Vomiting. IV CONTRAST: 50 cc Visipaque (iodixanol) IV ORAL CONTRAST: No oral contrast ingested. RADIATION DOSE: 6.51 CTDIvol (mGy) MEDICAL HISTORY : Cerebral palsy. SURGICAL HISTORY : Splenectomy. G-tube. ENCOUNTER: Initial ACUITY: 1 day PAIN SCALE: Non-responsive LOCATION: Abdomen TECHNIQUE: Volumetric scanning of the abdomen and pelvis was performed. Using automated exposure control and adjustment of the mA and/or kV according to patient size, radiation dose was kept as low as reasonably achievable to obtain optimal diagnostic quality images. DICOM format image data is av ailable electronically for review and comparison. FINDINGS: Minimal interstitial edema is present in both lungs that could either be inflammatory or failure. Th ere is moderate gaseous distention present. There is a tube coiled in the stomach. There is no free air. Liquid stool is seen in the right colon. Minimal solid stool is seen in the left colon. There is symmetrical renal function. There is a large hiatal hernia. CONCLUSION: 1. Abnormal lungs suggesting either failure or infiltrate. 2. Tube that may be a jejunostomy tube in the stomach. There is moderate gaseous distention of dist al small bowel and colon with liquid stool in the ascending colon and minimal solid stool in the desc ending colon, all suggestive of an ileus. The etiology of this is not readily apparent. I do see a patent SMA and SMV. Shalom Espinal MD FACR on April 28, 2017 at 6:59 Board Certified Radiologist. This report was verified electronically.
[2017-04-28] MEDS ORDERED: DEXT 5%-NACL 0.45% 1000 ML INJ 1,000 ML IV SCH (08:30)
[2017-04-28] MEDS ORDERED: MAGNESIUM HYDROXIDE SUSP 30 ML CUP PO PRN (08:30)
[2017-04-28] MEDS ORDERED: BISACODYL 10 MG SUPP RECTAL PRN (08:30)
[2017-04-28] MEDS ORDERED: NALOXONE HCL 0.4 MG/ML AMP IV PRN (08:30)
[2017-04-28] MEDS ORDERED: LACTULOSE SYRUP 20 GM/30 ML CUP PO PRN (08:30)
[2017-04-28] MEDS ORDERED: SENNOSIDES 8.6 MG TAB PO PRN (08:30)
[2017-04-28] MEDS ORDERED: ONDANSETRON HCL 4 MG/2 ML VIAL IVP PRN (08:30)
[2017-04-28] MEDS ORDERED: SOD PHOSPHATE/SOD BIPHOSPHATE (ADULT) ENEMA 133ML RECTAL ONE (08:45)
[2017-04-28] MEDS ORDERED: FOSPHENYTOIN INJ 1,000 MGPE in SODIUM CHLORIDE 0.9% INJ 50 ML IV ONE (08:45)
[2017-04-28] MEDS ORDERED: PIPERACIL-TAZO 3.375 GM PREMIX 50 ML IV SCH (08:45)
[2017-04-28] MEDS: AZITHROMYCIN 250 MG TAB G-TUBE SCH (09:00)
[2017-04-28] MEDS: SODIUM CHLORIDE 0.9% FLUSH 10 ML FLUSH IV FLUSH SCH ×2 (09:00→20:40)
--- NOTE | 2017-04-28 09:03 | PD ---
Data Data Last Documented VS Vital Signs Date Time Temp Pulse Resp B/P Pulse Ox O2 Delivery O2 Flow Rate FiO2 04/28/17 03:32 93 Room Air 04/28/17 01:34 97.4 90 16 116/64 Orders Complete Blood Count With Diff (04/28/17 02:17) Comprehensive Metabolic Panel (04/28/17 02:17) Lipase (04/28/17 02:17) Iv Access Insert/Monitor (04/28/17 02:17) Ecg Monitoring (04/28/17 02:17) Oximetry (04/28/17 02:17) Ondansetron Inj (Zofran Inj) (04/28/17 02:30) Sodium Chlor 0.9% 1000 Ml Inj (Ns 1000 M (04/28/17 02:17) Sodium Chloride 0.9% Flush (Ns Flush) (04/28/17 02:30) Chest, Single Ap (04/28/17 02:24) Abdomen, Flat & Upright (04/28/17 02:24) Phenytoin (Dilantin) (04/28/17 02:45) Ondansetron Odt (Zofran Odt) (04/28/17 03:30) Ct Abd/Pel W Iv Contrast(Rout) (04/28/17 06:00) Iodixanol 320 Inj (Rad Ct) (Visipaque 32 (04/28/17 06:27) Insert Ng Tube (04/28/17 07:16) Blood Culture (04/28/17 07:31) Piperacil-Tazo 4.5 Gm Premix (Zosyn 4.5 (04/28/17 07:31) Azithromycin Inj (Zithromax Inj) (04/28/17 07:45) Admit Order (Ed Use Only) (04/28/17 08:24) Labs Laboratory Tests Test 04/28/17 04/28/17 05:10 07:05 Sodium Level 140 MEQ/L Potassium Level 3.9 MEQ/L Chloride Level 102 MEQ/L Carbon Dioxide Level 25.0 MEQ/L Anion Gap 13 MEQ/L Blood Urea Nitrogen 37 MG/DL Creatinine 1.89 MG/DL Estimat Glomerular Filtration 50 ML/MIN Rate Random Glucose 105 MG/DL Calcium Level 8.9 MG/DL Total Bilirubin 0.7 MG/DL Aspartate Amino Transf 31 U/L (AST/SGOT) Alanine Aminotransferase 68 U/L (ALT/SGPT) Alkaline Phosphatase 121 U/L Total Protein 10.0 GM/DL Albumin 3.4 GM/DL Lipase 51 U/L Phenytoin (Dilantin) Level 0.6 MCG/ML White Blood Count 20.1 TH/MM3 Red Blood Count 5.03 MIL/MM3 Hemoglobin 12.9 GM/DL Hematocrit 39.4 % Mean Corpuscular Volume 78.4 FL Mean Corpuscular Hemoglobin 25.6 PG Mean Corpuscular Hemoglobin 32.7 % Concent Red Cell Distribution Width 19.4 % Platelet Count 337 TH/MM3 Mean Platelet Volume 8.3 FL Neutrophils (%) (Auto) 93.5 % Lymphocytes (%) (Auto) 2.4 % Monocytes (%) (Auto) 2.9 % Eosinophils (%) (Auto) 0.1 % Basophils (%) (Auto) 1.1 % Neutrophils # (Auto) 18.9 TH/MM3 Lymphocytes # (Auto) 0.5 TH/MM3 Monocytes # (Auto) 0.6 TH/MM3 Eosinophils # (Auto) 0.0 TH/MM3 Basophils # (Auto) 0.2 TH/MM3 CBC Comment AUTO DIFF Differential Comment AUTO DIFF CONFIRMED MDM Medical Record Reviewed: Yes Supervised Visit with BRENDA: No Narrative Course PLEASE REFER TO THE OUTGOING PROVIDER'S NOTE. CBC & BMP Diagram 04/28/17 05:10 04/28/17 07:05 Neutrophils 93% LFTs and Lipase normal Phenytoin 0.6 Last 24 hours Impressions Chest X-Ray 04/28/17223 Signed Impressions: Service Date/Time: Friday, April 28, 2017 02:41 - CONCLUSION: Lungs are grossly clear. Pronounced rightward thoracic scoliosis Devin Hassan MD Abdomen X-Ray 04/28/17223 Signed Impressions: Service Date/Time: Friday, April 28, 2017 02:30 - CONCLUSION: G-tube in good position. Moderate air throughout the colon. Both hips remain dislocated Devin Hassan MD CT ab/pelvis: L base consolidation; diffuse ileus; J portion of GJ tube appears to be coiled in the stomach The patient arrives with prerenal azotemia with a BUN/creatinine were 37 over 1.89. Our most recent prior from 5 months ago demonstrated a 14 over 0.49 ratio. He has received 1 L IV fluids. There appears to be a left base consolidation for which Zosyn and azithromycin have been ordered. The abdomen is diffusely tender and there is a GJ tube which is intact without cellulitic change at the site of insertion. CT shows no evidence of obstruction. The mother notes that the day before yesterday the patient had a very large bowel movement after an enema was used. The patient will be admitted for IV hydration, antibiotics and close monitoring of the abdomen. He has vomited since his ER arrival twice and has received Zofran. He was reassessed at about 7:50 AM. At that time he was resting comfortably with a heart rate of about 90 and BP of 116/64. Dilantin 0.6, Cerebryx ordered. Case d/w Dr Rojas for [facility] who will admit the patient. Dr Rojas placed an Invasive Radiology consult for repositioning of GJ tube. Diagnosis Primary Impression: PNA (pneumonia) Qualified Code: J18.1 - Pneumonia of left lower lobe due to infectious organism Additional Impressions: Prerenal acute renal failure Ileus Vomiting Qualified Code: R11.10 - Non-intractable vomiting, presence of nausea not specified, unspecified vomiting type Subtherapeutic serum dilantin level Admitting Information Admitting Physician Requests: Observation Bernard Amador MD Apr 28, 2017 09:03
[2017-04-28] MEDS: HEPARIN SODIUM - SQ 10,000 UNITS/ML VIAL SQ SCH ×2 (09:49→20:40)
[2017-04-28] MEDS ORDERED: traZODone HCL 50 MG TAB PO PRN (10:15)
[2017-04-28] MEDS ORDERED: FLUDROCORTISONE ACETATE 0.1 MG TAB PO ONE (10:15)
[2017-04-28] MEDS ORDERED: PILL SPLITTER OTHER PRN (10:30)
[2017-04-28] MEDS ORDERED: SODIUM CHLOR 0.9% 1000 ML INJ 1,000 ML IV ONE (10:45)
[2017-04-28] MEDS ORDERED: PROCHLORPERAZINE INJ 10 MG/2 ML VIAL IV PUSH ONE (10:45)
[2017-04-28 11:51] LABS: BACTERIA, URINE RARE /hpf; BLOOD, URINE NEG (NEG); COMMENT (UR) CATH-CULTURE IND; CULTURE IF INDICATED CATH CULTURE IND; GLUCOSE,URINE TRACE mg/dL (NEG); HYALINE CAST, URINE 22 /lpf (RARE); KETONE, URINE TRACE mg/dL (NEG); MUCUS URINE FEW /lpf (OCC); NITRITE,URINE NEG (NEG); SQUAMOUS EPITHELIAL CELL URINE <1 /hpf (0-5); URINE COLOR YELLOW (YELLW/STRAW)
[2017-04-28] MEDS ORDERED: THIAMINE INJ 100 MG in SODIUM CHLORIDE 0.9% INJ 100 ML IV ONE (12:15)
[2017-04-28] MEDS: FLUDROCORTISONE ACETATE 0.1 MG TAB PO SCH (13:02)
[2017-04-28] MEDS ORDERED: DEXTROSE 50% IN WATER 50 ML VIAL(D50) IV PRN (14:15)
[2017-04-28] MEDS ORDERED: GLUCAGON 1 MG/ML VIAL OTHER PRN (14:15)
[2017-04-28] MEDS ORDERED: RESP: ALBUTEROL 2.5 MG/IPRATROPIUM 0.5 MG NEB (PRN) NEB (14:15)
[2017-04-28] MEDS: INSULIN NovoLIN REGULAR SUPPLEMENTAL SCALE SQ SCH ×3 (15:00→22:05)
[2017-04-28] MEDS: PIPERACIL-TAZO 3.375 GM PREMIX 50 ML IV SCH ×2 (15:21→20:40)
[2017-04-28] MEDS: DEXT 5%-NACL 0.9% 1000 ML INJ 1,000 ML IV SCH ×2 (15:21→23:32)
[2017-04-28] MEDS: PANTOPRAZOLE SODIUM 40 MG VIAL IV PUSH SCH (15:21)
--- NOTE | 2017-04-28 15:41 | PD.CONS ---
HPI History of Present Illness This is a 36 year old male patient with a history of cerebral palsy, GERD, gastroparesis, and multiple abdominal surgeries including an Lebron fundoplication, lysis of adhesions, G and J-tube placement, and exploratory laparotomy for bowel obstruction who presents with nausea and vomiting today. Patient unable to provide any history and therefore the history has been obtained from the EMR and nurse. According to nurse, patient received fleet enema in the ED and had a large bm, the mother reports large BM yesterday as well. The nurse states, patient had one episode of coffee ground emesis upon arrival to the floor, this was noted in the canister, however, G tube to LIWS with green gastric out put. Abdomen/Pelvis CT 04/28/17 1. Abnormal lungs suggesting either failure or infiltrate. 2. Tube that may be a jejunostomy tube in the stomach. There is moderate gaseous distention of distal small bowel and colon with liquid stool in the ascending colon and minimal solid stool in the descending colon, all suggestive of an ileus. The etiology of this is not readily apparent. I do see a patent SMA and SMV. Hgb is 12.9, no more coffee ground emesis. (Karen Ellis) PFSH Past Medical History Cerebral palsy Seizure disorder Pneumonia History of sepsis Developmental delay Hypoglycemia Hypertension Dysphagia Malnutrition with prior PEG tube placement History of respiratory failure with prior tracheostomy Past Surgical History Tracheostomy s/p removal GJ-tube placement Lebron fundoplication Lysis of the adhesions (Karen Ellis) Coded Allergies: *MDRO Multi-Drug Resistant Organism (Verified Adverse Reaction, Unknown, ) MDR Pseudomonas (sputum) - 11/09/16 Medications Current Medications Medications (Trade) Dose Ordered Sig/Carlotta Route Start Time Stop Time Status Last Admin (NS Flush) 2 ml UNSCH PRN IV FLUSH 04/28/17 02:30 (NS Flush) 2 ml UNSCH PRN IV FLUSH 04/28/17 08:30 (NS Flush) 2 ml BID IV FLUSH 04/28/17 09:00 (Zofran Inj) 4 mg Q6H PRN IVP 04/28/17 08:30 04/28/17 10:15 (Heparin Inj) 5,000 units Q12H SQ 04/28/17 08:30 04/28/17 09:49 (Narcan Inj) 0.4 mg UNSCH PRN IV 04/28/17 08:30 (Milk Of Magnesia Liq) 30 ml Q12H PRN PO 04/28/17 08:30 (Senokot) 17.2 mg Q12H PRN PO 04/28/17 08:30 (Dulcolax Supp) 10 mg DAILY PRN RECTAL 04/28/17 08:30 (Lactulose Liq) 30 ml DAILY PRN PO 04/28/17 08:30 (Zithromax) 250 mg DAILY G-TUBE 04/28/17 09:00 (Xanax) 0.5 mg Q8H PRN PO 04/28/17 10:15 (Ecotrin Ec) 81 mg DAILY PO 04/29/17 09:00 (Florinef) 0.2 mg DAILY PO 04/29/17 09:00 (Dilantin Liq) 100 mg BID PO 04/28/17 21:00 (Topamax) 100 mg BID PO 04/28/17 21:00 (Desyrel) 25 mg DAILY PRN PO 04/28/17 10:15 Miscellaneous 1 ea 1 ea UNSCH PRN OTHER 04/28/17 10:30 Piperacillin Sod/ Tazobactam Sod 50 ml @ 100 mls/hr Q6H IV 04/28/17 15:00 (D5W-NS 1000 ml Inj) 1,000 ml @ 100 mls/hr Q10H IV 04/28/17 14:15 (D50w (Vial) Inj) 50 ml UNSCH PRN IV 04/28/17 14:15 (Glucagon Inj) 1 mg UNSCH PRN OTHER 04/28/17 14:15 (NovoLIN R SUPPLEMENTAL SCALE) 1 Q4H SQ 04/28/17 15:00 (Protonix Inj) 40 mg Q24H IV PUSH 04/28/17 16:00 Family History Non contributory Social History No alcohol No smoking No illicit drug use (Karen Ellis) Review of Systems Gastrointestinal: COMPLAINS OF: Constipation, Nausea, Vomiting, Hematemesis Neurologic: COMPLAINS OF: Abnormal gait ROS Patient unable to provide any information, this was obtained from nurse, EMR ( Karen Ellis) GI Exam Vitals I&O Vital Signs Date Time Temp Pulse Resp B/P Pulse Ox O2 Delivery O2 Flow Rate FiO2 04/28/17 11:35 86 16 100/62 96 Room Air 04/28/17 10:36 98.6 112 20 108/71 92 Room Air 04/28/17 09:30 102 18 120/81 95 Room Air 04/28/17 08:30 107 18 114/78 92 Room Air 04/28/17 07:30 107 16 111/77 92 Room Air 04/28/17 03:32 93 Room Air 04/28/17 01:34 97.4 90 16 116/64 97 Room Air Imaging Last Impressions Abdomen/Pelvis CT 04/28/17 0600 Signed Impressions: Service Date/Time: Friday, April 28, 2017 06:24 - CONCLUSION: 1. Abnormal lungs suggesting either failure or infiltrate. 2. Tube that may be a jejunostomy tube in the stomach. There is moderate gaseous distention of distal small bowel and colon with liquid stool in the ascending colon and minimal solid stool in the descending colon, all suggestive of an ileus. The etiology of this is not readily apparent. I do see a patent SMA and SMV. Shalom Espinal MD FACR Chest X-Ray 04/28/17223 Signed Impressions: Service Date/Time: Friday, April 28, 2017 02:41 - CONCLUSION: Lungs are grossly clear. Pronounced rightward thoracic scoliosis Devin Hassan MD Abdomen X-Ray 04/28/17223 Signed Impressions: Service Date/Time: Friday, April 28, 2017 02:30 - CONCLUSION: G-tube in good position. Moderate air throughout the colon. Both hips remain dislocated Devin Hassan MD Laboratory Test 04/28/17 04/28/17 04/28/17 04/28/17 05:10 07:05 11:04 11:07 Sodium Level 140 MEQ/L Potassium Level 3.9 MEQ/L Chloride Level 102 MEQ/L Carbon Dioxide Level 25.0 MEQ/L Anion Gap 13 MEQ/L Blood Urea Nitrogen 37 MG/DL Creatinine 1.89 MG/DL Estimat Glomerular Filtration 50 ML/MIN Rate Random Glucose 105 MG/DL Calcium Level 8.9 MG/DL Total Bilirubin 0.7 MG/DL Aspartate Amino Transf 31 U/L (AST/SGOT) Alanine Aminotransferase 68 U/L (ALT/SGPT) Alkaline Phosphatase 121 U/L Total Protein 10.0 GM/DL Albumin 3.4 GM/DL Lipase 51 U/L Phenytoin (Dilantin) Level 0.6 MCG/ML White Blood Count 20.1 TH/MM3 Red Blood Count 5.03 MIL/MM3 Hemoglobin 12.9 GM/DL Hematocrit 39.4 % Mean Corpuscular Volume 78.4 FL Mean Corpuscular Hemoglobin 25.6 PG Mean Corpuscular Hemoglobin 32.7 % Concent Red Cell Distribution Width 19.4 % Platelet Count 337 TH/MM3 Mean Platelet Volume 8.3 FL Neutrophils (%) (Auto) 93.5 % Lymphocytes (%) (Auto) 2.4 % Monocytes (%) (Auto) 2.9 % Eosinophils (%) (Auto) 0.1 % Basophils (%) (Auto) 1.1 % Neutrophils # (Auto) 18.9 TH/MM3 Lymphocytes # (Auto) 0.5 TH/MM3 Monocytes # (Auto) 0.6 TH/MM3 Eosinophils # (Auto) 0.0 TH/MM3 Basophils # (Auto) 0.2 TH/MM3 CBC Comment AUTO DIFF Differential Comment AUTO DIFF CONFIRMED B-Type Natriuretic Peptide 10 PG/ML Lactic Acid Level 4.1 mmol/L Urine Color YELLOW Urine Turbidity HAZY Urine pH 6.0 Urine Specific [place] 1.046 Urine Protein 100 mg/dL Urine Glucose (UA) TRACE mg/dL Urine Ketones TRACE mg/dL Urine Occult Blood NEG Urine Nitrite NEG Urine Bilirubin NEG Urine Urobilinogen LESS THAN 2.0 MG/DL Urine Leukocyte Esterase NEG Urine RBC 2 /hpf Urine WBC 3 /hpf Urine Squamous Epithelial <1 /hpf Cells Urine Bacteria RARE /hpf Urine Hyaline Casts 22 /lpf Urine Mucus FEW /lpf Microscopic Urinalysis Comment CATH-CULTURE IND Date/Time Procedure Status Source Growth 04/28/17 11:07 Urine Culture Received Urine Catheterized Urine Pending 04/28/17 08:44 Aerobic Blood Culture Received Blood Peripheral Pending 04/28/17 08:44 Anaerobic Blood Culture Received Blood Peripheral Pending Physical Examination HEENT: normocephalic; atraumatic; no jaundice. NECK: Neck is supple, no JVD, no lymphadenopathy. CHEST: Chest is clear to auscultation and percussion. CARDIAC: Regular rate and rhythm with no murmur gallop or rubs. ABDOMEN: Soft, nondistended, nontender; no hepatosplenomegaly; bowel sounds are hypoactive- Gj tube, g to gravity with green gastric output EXTREMITIES: contracted [employer]: alert (Karen Ellis) Assessment and Plan Plan ASSESSMENT: - Ileus, n/V, Constipation. Abdomen/Pelvis CT 04/28/17 1. Abnormal lungs suggesting either failure or infiltrate. 2. Tube that may be a jejunostomy tube in the stomach. There is moderate gaseous distention of distal small bowel and colon with liquid stool in the ascending colon and minimal solid stool in the descending colon, all suggestive of an ileus. The etiology of this is not readily apparent. I do see a patent SMA and SMV. According to nurse, patient received fleet enema in the ED and had a large bm , the mother reports large BM yesterday as well. The nurse states, patient had one episode of coffee ground emesis upon arrival to the floor, this was noted in the canister, however, G tube to LIWS with green gastric out put. - J tube coiled in the stomach- IR for repositioning - Leukocytosis- WBC 20.1. blood cx, urine cx pending, on Zosyn - one episode of coffee ground emesis per nurse. Hgb is 12.9, no more coffee ground emesis. G tube to LIWS with green gastric out put - SIM Per CCM - Hx cerebral palsy, development delay, sz disorder PLAN: - NPO - Dulcolax, fleet enema, lactulose, MOM - Azithromycin - S/P enema in the ED, he did have a large BM according to nurse - KUB in am - Consult IR for repositioning of G-J tube - Consider EGD once stable - Cont PPI - Monitor hh - Supportive care - Pt seen and examined by Dr. Mackay and myself and this note is written on his behalf (Karen Ellis) Physician Comments Patient seen and examined Agree with above Continue with current supportive care Monitor labs EGD when more stable or if actively bleeding GJ tube to be repositioned by interventional radiology (David Mackay MD) Karen Ellis Apr 28, 2017 15:41 David Mackay MD Apr 28, 2017 18:16
--- NOTE | 2017-04-28 16:14 | MB ---
cc: GERMÁN LARSON M.D. DATE OF CONSULTATION: 04/28/2017. REASON FOR CONSULTATION: Critical care consultation. HISTORY OF PRESENT ILLNESS: The patient is a 36-year-old male with past medical history of seizure disorder, cerebral palsy, previous G-J tube placement for nutritional support who presented to the [facility] Emergency Department by his mom for intractable nausea and vomiting. No history of any fever or constitutional symptoms. In addition, no history of any abdominal pain. On arrival to the emergency room, he was tachycardiac with heart rate of 107-112 and had a blood pressure of 116/64. His laboratory data showed acute kidney injury with creatinine level 1.89, lactic acidemia with a lactic acid level of 4.1. In addition, the patient was found to have leukocytosis with a WBC of 20. Chest x-ray in the emergency room showed no acute cardiopulmonary disease. The patient underwent a KUB of the abdomen which showed G-tube in good position, moderate air throughout the colon. He subsequently underwent CT scan of the abdomen and pelvis which showed jejunostomy tube in the stomach, moderate gaseous distension of the distal small bowel and colon and findings suggestive of ileus. In the emergency room, he was given 2 liters of crystalloids, Zosyn, Zofran and Cerebyx. His Dilantin level measured at 0.6. The patient was initially admitted to [facility] under the hospitalist service. However critical care medicine was consulted by Dr. Rojas for possible aspiration. When seen, the patient is on room air oxygen with a saturation of 94% with blood pressure 113/72 and a pulse of 109. Interventional radiology was consulted by [facility] for repositioning of the J-tube as it is coiled in the stomach. The patient is nonverbal and most of the history was obtained from reviewing medical records. PAST MEDICAL HISTORY: Past medical history significant for: 1. Seizure disorder. 2. Cerebral palsy. 3. Scoliosis. 4. Partial critical blindness. PAST SURGICAL HISTORY: 1. Previous exploratory laparotomy for bowel obstruction. 2. Previous placement of G-J tube. 3. Previous Brina fundoplication. 4. Previous splenectomy. 5. Previous cord surgery at the age of 9. MEDICATIONS: Current medications include: 1. Topamax. 2. Aspirin. 3. Florinef. 4. Dilantin. 5. DuoNeb. 6. Zosyn. FAMILY HISTORY: Noncontributory. SOCIAL HISTORY: Nonsmoker and non-drinker. REVIEW OF SYSTEMS: The review of systems is as per the history of present illness, and the rest of the review of systems is unremarkable. PHYSICAL EXAMINATION: GENERAL: A 36-year-old male lying in bed in no acute distress on room air oxygen. VITAL SIGNS: Temperature 98.6 rectally, pulse of 109, blood pressure 113/72, saturation 94% on room air. HEAD, EYES, EARS, NOSE, THROAT: Normocephalic and atraumatic. Pupils equal, round and reactive to light and accommodation. Extraocular muscles intact. Conjunctivae are pink. Nonicteric sclerae. Oral mucosa within normal limits. NECK: The neck is supple. No jugular venous distention, adenopathy or thyromegaly. Trachea in the midline. CARDIOVASCULAR: Tachycardic. Normal S1-S2. No murmurs, rubs or gallops noted. PULMONARY: Bilateral equal air entry. No rales or wheezing. ABDOMEN: The abdomen is soft. Mild tenderness upon palpation. No distention. Positive bowel sounds. EXTREMITIES: No cyanosis, clubbing or edema. NEUROLOGIC: Contracted. Nonverbal. Awake. LABORATORY DATA: WBC 20, hemoglobin 12.9, hematocrit 39, platelet count of 337,000. Sodium 140, potassium 3.9, chloride 102, carbon dioxide 35, BUN of 37, creatinine of 1.89, glucose of 105, lactic acid 4.1, lipase 51, albumin 3.4. RADIOGRAPHIC STUDIES: Chest x-ray showed clear lungs. KUB of the abdomen showed G tube in good position, moderate air throughout the colon. CT abdomen and pelvis showed jejunostomy tube in the stomach and findings suggestive of ileus. IMPRESSION: 1. Intractable nausea and vomiting. 2. Possible aspiration. 3. Leukocytosis. 4. Lactic acidemia. 5. Acute kidney injury. 6. Ileus. 7. Malfunctioning J tube. 8. History of cerebral palsy. 9. History of seizures. RECOMMENDATIONS: 1. Monitor neuro status closely and avoid any sedatives. 2. Oxygen p.r.n. to maintain sats above 92%. 3. Bronchodilators on a p.r.n. basis and aspiration precautions. 4. Monitor heart rate and blood pressure closely and maintain MAP greater than 65 mmHg. 5. The patient was given approximately 2 liters of crystalloids in the ED. 6. Serial lactic acid monitoring. 7. Continue with IV fluids. Will change fluids to D5 normal saline at 100 mL an hour. 8. Continue with Florinef 0.2 milligrams daily. 9. Aspirin 81 milligrams daily. 10. Continue with antiseizure meds. The patient is on Dilantin 100 milligrams p.o. twice a day. His Dilantin level is 0.6. In addition, he is on Topamax 100 milligrams p.o. twice a day. 11. Monitor renal function, intake and output and avoid nephrotoxins. 12. IV fluids as stated above. 13. Keep NPO for now. 14. Will place on Protonix 40 milligrams daily for GI prophylaxis. 15. Continue with broad-spectrum antibiotics. He is currently on azithromycin, Zosyn. 16. Monitor for signs of infection which include fever and WBCs. 17. Follow up on blood cultures and urine culture. 18. Keep NPO for now. 19. Will consult the GI service regarding ileus on CT abdomen. In addition, invasive radiology has been consulted for malfunction of the J-tube, will need readjustment and will also need repositioning. 20. Place on sliding scale insulin with Accu-Chek for glycemic control if needed. 21. Monitor CBC. 22. GI prophylaxis with Protonix 40 milligrams daily. 23. DVT prophylaxis with SCDs. Further recommendations will be based on the hospital course. MD JOSE Harris/SUNSHINE /2:16 PM /3:52 PM
[2017-04-28] MEDS: RESP: ALBUTEROL 2.5 MG/IPRATROPIUM 0.5 MG NEB (SCH) NEB ×2 (17:59→20:52)
[2017-04-28] MEDS: PHENYTOIN SUSP 100 MG/4 ML CUP PO SCH (20:39)
[2017-04-28] MEDS: TOPIRAMATE 100 MG TAB PO SCH (20:40)
[2017-04-28] MEDS ORDERED: CHLORHEXIDINE GLUCONATE 2 % 1 PACK (2 CLOTHS)(extra cloths) TOPICAL PRN (21:15)
[2017-04-28] MEDS: ALPRAZolam 0.5 MG TAB PO PRN (22:05)
[2017-04-28] MEDS: HALOPERIDOL LACTATE 5 MG/ML AMP IV PRN (23:32)
[2017-04-28] MEDS: LORazepam 2 MG/ML VIAL IV PRN (23:42)
[2017-04-29] VITALS (17 sets, daily range): BP systolic 98–161; BP diastolic 63–85; PULSE 100–132; RESP 17–43; TEMP 97.2–98.2; O2SAT 93–100
[2017-04-29] MEDS ORDERED: SODIUM CHLOR 0.9% 1000 ML INJ 2,000 ML IV ONE (01:00)
[2017-04-29] MEDS: INSULIN NovoLIN REGULAR SUPPLEMENTAL SCALE SQ SCH ×6 (02:45→22:36)
[2017-04-29] MEDS: PIPERACIL-TAZO 3.375 GM PREMIX 50 ML IV SCH ×4 (02:45→19:55)
[2017-04-29] MEDS: CHLORHEXIDINE GLUCONATE 2 % 1 PACK (2 CLOTHS)(taper/protocol) TOPICAL SCH (02:46)
[2017-04-29] MEDS: RESP: ALBUTEROL 2.5 MG/IPRATROPIUM 0.5 MG NEB (SCH) NEB ×4 (04:00→21:17)
--- NOTE | 2017-04-29 04:52 | RADRPT ---
EXAM DATE/TIME: 04/29/2017 03:22 [place] COMPARISON: No previous studies available for comparison. INDICATIONS : Evaluate Ileus, vomiting MEDICAL HISTORY : Cerebral Palsy SURGICAL HISTORY : Splenectomy. G-tube ENCOUNTER: Subsequent ACUITY: 2 days PAIN SCORE: Non-responsive. LOCATION: Bilateral chest FINDINGS: Supine view of the abdomen was performed. There is a moderate amount of air throughout the colon. G-t ube in good position. No visible pneumatosis. No abnormal masses, calcifications, or organomegaly is seen. The osseous structures are unremarkable with pronounced rightward scoliosis and dislocated hi ps chronically. CONCLUSION: Moderate amount air throughout the colon. G-tube in good position Devin Hassan MD on April 29, 2017 at 4:49 Board Certified Radiologist. This report was verified electronically.
[2017-04-29 08:53] LABS: AUTOMATED NEUTROPHIL # 11.7 TH/MM3 (1.8-7.7); BASOPHIL % 0.2 % (0.0-2.0); EOSINOPHIL # 0.1 TH/MM3 (0-0.4); EOSINOPHIL % 0.5 % (0.0-4.0); HEMATOCRIT 34.9 % (39.0-51.0); HEMO FLAGS DIFF FINAL; LYMPH % 11.3 % (9.0-44.0); LYMPHOCYTE # 1.6 TH/MM3 (1.0-4.8); MEAN CELL VOLUME 80.6 FL (80.0-100.0); MEAN CORPUSCULAR HEMOGLOBIN 25.6 PG (27.0-34.0); MEAN CORPUSCULAR HGB CONC 31.8 % (32.0-36.0); MONO % 5.5 % (0.0-8.0); NEUT % 82.5 % (16.0-70.0); PLATELET COUNT 248 TH/MM3 (150-450); RED BLOOD COUNT 4.32 MIL/MM3 (4.50-5.90); RED CELL DISTRIBUTION WIDTH 19.4 % (11.6-17.2); WHITE BLOOD COUNT 14.2 TH/MM3 (4.0-11.0)
[2017-04-29] MEDS: SODIUM CHLORIDE 0.9% FLUSH 10 ML FLUSH IV FLUSH SCH ×2 (08:53→19:55)
[2017-04-29] MEDS: HEPARIN SODIUM - SQ 10,000 UNITS/ML VIAL SQ SCH ×2 (08:53→19:55)
[2017-04-29] MEDS: PHENYTOIN SUSP 100 MG/4 ML CUP PO SCH ×2 (08:54→19:54)
[2017-04-29] MEDS: TOPIRAMATE 100 MG TAB PO SCH ×2 (08:54→19:54)
[2017-04-29] MEDS: DEXT 5%-NACL 0.9% 1000 ML INJ 1,000 ML IV SCH (08:54)
[2017-04-29] MEDS: ASPIRIN EC 81 MG TABEC PO SCH (08:54)
[2017-04-29] MEDS: FLUDROCORTISONE ACETATE 0.1 MG TAB PO SCH (08:54)
[2017-04-29] MEDS: AZITHROMYCIN 250 MG TAB G-TUBE SCH (08:54)
--- NOTE | 2017-04-29 09:06 | HHI.CCPN ---
Subjective Remarks/Hospital Course The patient is a 36-year-old male with past medical history of seizure disorder , cerebral palsy, previous G-J tube placement for nutritional support who presented to the [facility] Emergency Department by his mom for intractable nausea and vomiting. No history of any fever or constitutional symptoms. In addition, no history of any abdominal pain. On arrival to the emergency room, he was tachycardiac with heart rate of 107-112 and had a blood pressure of 116/64. His laboratory data showed acute kidney injury with creatinine level 1.89, lactic acidemia with a lactic acid level of 4.1. In addition, the patient was found to have leukocytosis with a WBC of 20. Chest x- ray in the emergency room showed no acute cardiopulmonary disease. The patient underwent a KUB of the abdomen which showed G-tube in good position, moderate air throughout the colon. He subsequently underwent CT scan of the abdomen and pelvis which showed jejunostomy tube in the stomach, moderate gaseous distension of the distal small bowel and colon and findings suggestive of ileus. In the emergency room, he was given 2 liters of crystalloids, Zosyn, Zofran and Cerebyx. His Dilantin level measured at 0.6. The patient was initially admitted to [facility] under the hospitalist service. However critical care medicine was consulted by Dr. Rojas for possible aspiration. When seen, the patient is on room air oxygen with a saturation of 94% with blood pressure 113/ 72 and a pulse of 109. IR was consulted by [facility] for repositioning of the J- tube as it is coiled in the stomach. 04/19 Patient was given 2L NS boluses overnight for tachycardia. Afebrile. WBC is trending down. Objective Vital Signs Date Time Temp Pulse Resp B/P Pulse Ox O2 Delivery O2 Flow Rate FiO2 04/29/17 07:44 100 Nasal Cannula 1.00 04/29/17 04:00 97.2 100 25 111/73 Intake and Output 04/28/17 04/28/17 04/28/17 07:59 15:59 23:59 Intake Total 0 ml 743 ml Output Total 175 ml 200 ml Balance -175 ml 543 ml Result Diagram: 04/29/17 0831 04/28/17 0510 Other Results Laboratory Tests Test 04/28/17 04/28/17 04/28/17 04/28/17 11:04 11:07 13:30 15:34 Lactic Acid Level 4.1 mmol/L 3.0 mmol/L Urine Color YELLOW Urine Turbidity HAZY Urine pH 6.0 Urine Specific [place] 1.046 Urine Protein 100 mg/dL Urine Glucose (UA) TRACE mg/dL Urine Ketones TRACE mg/dL Urine Occult Blood NEG Urine Nitrite NEG Urine Bilirubin NEG Urine Urobilinogen LESS THAN 2.0 MG/DL Urine Leukocyte Esterase NEG Urine RBC 2 /hpf Urine WBC 3 /hpf Urine Squamous Epithelial <1 /hpf Cells Urine Bacteria RARE /hpf Urine Hyaline Casts 22 /lpf Urine Mucus FEW /lpf Microscopic Urinalysis Comment CATH-CULTURE IND Nasal Screen MRSA (PCR) MRSA NOT DETECTED Test 04/29/17 08:31 White Blood Count 14.2 TH/MM3 Red Blood Count 4.32 MIL/MM3 Hemoglobin 11.1 GM/DL Hematocrit 34.9 % Mean Corpuscular Volume 80.6 FL Mean Corpuscular Hemoglobin 25.6 PG Mean Corpuscular Hemoglobin 31.8 % Concent Red Cell Distribution Width 19.4 % Platelet Count 248 TH/MM3 Mean Platelet Volume 8.1 FL Neutrophils (%) (Auto) 82.5 % Lymphocytes (%) (Auto) 11.3 % Monocytes (%) (Auto) 5.5 % Eosinophils (%) (Auto) 0.5 % Basophils (%) (Auto) 0.2 % Neutrophils # (Auto) 11.7 TH/MM3 Lymphocytes # (Auto) 1.6 TH/MM3 Monocytes # (Auto) 0.8 TH/MM3 Eosinophils # (Auto) 0.1 TH/MM3 Basophils # (Auto) 0.0 TH/MM3 CBC Comment DIFF FINAL Differential Comment Imaging Last Impressions Abdomen X-Ray 04/29/17599 Signed Impressions: Service Date/Time: Saturday, April 29, 2017 03:22 - CONCLUSION: Moderate amount air throughout the colon. G-tube in good position Devin Hassan MD Abdomen/Pelvis CT 04/28/17599 Signed Impressions: Service Date/Time: Friday, April 28, 2017 06:24 - CONCLUSION: 1. Abnormal lungs suggesting either failure or infiltrate. 2. Tube that may be a jejunostomy tube in the stomach. There is moderate gaseous distention of distal small bowel and colon with liquid stool in the ascending colon and minimal solid stool in the descending colon, all suggestive of an ileus. The etiology of this is not readily apparent. I do see a patent SMA and SMV. Shalom Espinal MD FACR Chest X-Ray 04/28/17 0224 Signed Impressions: Service Date/Time: Sunday, April 28, 2017 02:41 - CONCLUSION: Lungs are grossly clear. Pronounced rightward thoracic scoliosis Devin Hassan MD Objective Remarks GENERAL: Patient is 36 yo lying in bed in NAD SKIN: Warm and dry. HEAD: Normocephalic. EYES: No scleral icterus. No injection or drainage. NECK: Supple, trachea midline. No JVD or lymphadenopathy. CARDIOVASCULAR:Tachy without murmurs, gallops, or rubs. RESPIRATORY: Breath sounds equal bilaterally. No accessory muscle use. GASTROINTESTINAL: Abdomen soft, non-tender, nondistended. MUSCULOSKELETAL: No cyanosis, or edema. Neuro: Contracted, non-verbal. A/P Assessment and Plan 1. Resp Insuff 2. Gram positive bacteremia 3. Leukocytosis. 4. Lactic acidemia. 5. Acute kidney injury. 6. Ileus. 7. Malfunctioning J tube. 8. History of cerebral palsy. 9. History of seizures. Plan Neuro: Monitor neuro status closely and avoid any sedatives. Continue with antiseizure meds. on Dilantin 100 mg BID. Dilantin level is 0.6. On Topamax 100 mg BID Pulm: Continue with Oxygen to maintain sats above 92%. Bronchodilators and aspiration precautions. CXR 04/28: Clear lungs CV: Monitor HR and BP and maintain MAP > 65 mmHg. Given additional 2L NS boluses overnight for tachycardia Serial lactic acid monitoring. Continue IVF Continue with Florinef 0.2 mg daily. Aspirin 81 mg daily. : Monitor renal function, I/O's and avoid nephrotoxins. Change D51/2NS@84ml/hr GI: On Protonix 40 mg daily for GI prophylaxis. GI is following IR consulted to reposition J-tube ID: Continue with abx( azithromycin, Zosyn, Add Vanco) Check BC x 2 sets today Monitor for signs of infection(fever and WBCs). 04/28 BC 2/4 sets: GPC, followup on urine cx. Heme: Monitor CBC Endo: SSI with Accu-Chek for glycemic control GI prophylaxis with Protonix 40 mg daily. DVT prophylaxis with SCDs. Level 3 Doyle,Alaa MD Apr 29, 2017 09:06
--- NOTE | 2017-04-29 09:08 | HHI.PR ---
Objective Vitals Vital Signs Date Time Temp Pulse Resp B/P Pulse Ox O2 Delivery O2 Flow Rate FiO2 04/29/17 07:44 100 Nasal Cannula 1.00 04/29/17 04:00 97.2 100 25 111/73 100 04/29/17 00:00 97.4 132 28 98/63 98 04/28/17 20:53 98 Nasal Cannula 2.00 04/28/17 20:00 98.8 110 29 105/73 95 04/28/17 18:00 111 04/28/17 17:59 98 Nasal Cannula 2.00 04/28/17 16:00 99.0 122 29 100/71 92 04/28/17 16:00 122 04/28/17 14:01 99.1 103 23 113/72 98 04/28/17 14:00 98 04/28/17 11:35 86 16 100/62 96 Room Air 04/28/17 10:36 98.6 112 20 108/71 92 Room Air 04/28/17 09:30 102 18 120/81 95 Room Air I/O 04/28/17 04/28/17 04/28/17 04/29/17 04/29/17 04/29/17 07:00 15:00 23:00 07:00 15:00 23:00 Intake Total 0 ml 743 ml 2739 ml Output Total 175 ml 200 ml 300 ml Balance -175 ml 543 ml 2439 ml Intake Oral 0 ml 0 ml IV Total 683 ml 2679 ml Other 60 ml 60 ml Output Urine Total 175 ml 200 ml 300 ml # Bowel Movements 1 0 0 Result Diagram: 04/29/17 0831 04/28/17 0510 Amber Sky MD Apr 29, 2017 09:08
[2017-04-29 09:11] LABS: TOTAL BILIRUBIN ADULT 0.6 MG/DL (0.2-1.0)
[2017-04-29 09:13] LABS: CALCIUM-PROTEIN CORRECTED 7.4 MG/DL (8.5-10.1)
[2017-04-29] MEDS ORDERED: Vancomycin Consult Pharmacy 1 EA OTHER SCH (09:15)
[2017-04-29] MEDS ORDERED: SODIUM PHOSPHATE INJ 30 MMOL in SODIUM CHLOR 0.9% 250 ML INJ 240 ML IV PRN (09:30)
[2017-04-29] MEDS ORDERED: POTASSIUM CHLOR 40 MEQ PREMIX 100 ML IV PRN ×2 (09:30)
[2017-04-29] MEDS ORDERED: POTASSIUM CHLOR 20 MEQ PREMIX 100 ML IV PRN (09:30)
[2017-04-29] MEDS ORDERED: VANCOMYCIN INJ 1,000 MG in SODIUM CHLOR 0.9% 250 ML INJ 250 ML IV ONE (09:30)
[2017-04-29] MEDS ORDERED: POTASSIUM CHLORIDE 25 MEQ EFFERVESCENT TAB PO PRN (09:30)
[2017-04-29] MEDS ORDERED: MAGNESIUM SULFATE INJ 4 GM in SODIUM CHLORIDE 0.9% INJ 92 ML IV PRN (09:30)
[2017-04-29] MEDS ORDERED: MAGNESIUM OXIDE 400 MG TAB PO PRN (09:30)
[2017-04-29] MEDS ORDERED: MAGNESIUM SULFATE INJ 2 GM in SODIUM CHLORIDE 0.9% INJ 96 ML IV PRN (09:30)
[2017-04-29] MEDS ORDERED: POTASSIUM PHOSPHATE MONOBASIC 500 MG TAB PO/TUBE PRN (09:30)
[2017-04-29] MEDS ORDERED: POTASSIUM PHOSPHATE MONOBASIC 500 MG TAB PO PRN (09:30)
[2017-04-29] MEDS ORDERED: POTASSIUM PHOSPHATE INJ 30 MMOL in SODIUM CHLOR 0.9% 250 ML INJ 250 ML IV PRN (09:30)
[2017-04-29] MEDS ORDERED: CALCIUM GLUCONATE INJ 1 GM in SODIUM CHLORIDE 0.9% INJ 100 ML IV ONE (10:00)
[2017-04-29] MEDS: POTASSIUM CHLOR 20 MEQ PREMIX 100 ML IV PRN ×2 (10:13→12:18)
[2017-04-29] MEDS: DEXT 5%-NACL 0.45% 1000 ML INJ 1,000 ML IV SCH ×2 (10:26→19:55)
--- NOTE | 2017-04-29 11:22 | HHI.GIFU ---
Subjective Remarks Lying in bed in no apparent distress. G tube to LIWS with green gastric output. (Fabiola Rodriguez) Objective Vitals I&O Vital Signs Date Time Temp Pulse Resp B/P Pulse Ox O2 Delivery O2 Flow Rate FiO2 04/29/17 07:44 100 Nasal Cannula 1.00 04/29/17 04:00 97.2 100 25 111/73 100 04/29/17 00:00 97.4 132 28 98/63 98 04/28/17 20:53 98 Nasal Cannula 2.00 04/28/17 20:00 98.8 110 29 105/73 95 04/28/17 18:00 111 04/28/17 17:59 98 Nasal Cannula 2.00 04/28/17 16:00 99.0 122 29 100/71 92 04/28/17 16:00 122 04/28/17 14:01 99.1 103 23 113/72 98 04/28/17 14:00 98 04/28/17 11:35 86 16 100/62 96 Room Air I/O 04/28/17 04/28/17 04/28/17 04/29/17 04/29/17 04/29/17 07:00 15:00 23:00 07:00 15:00 23:00 Intake Total 0 ml 743 ml 2739 ml Output Total 175 ml 200 ml 300 ml Balance -175 ml 543 ml 2439 ml Intake Oral 0 ml 0 ml IV Total 683 ml 2679 ml Other 60 ml 60 ml Output Urine Total 175 ml 200 ml 300 ml # Bowel Movements 1 0 0 Laboratory Laboratory Tests Test 04/28/17 04/28/17 04/29/17 13:30 15:34 08:31 Nasal Screen MRSA (PCR) MRSA NOT DETECTED Lactic Acid Level 3.0 White Blood Count 14.2 Red Blood Count 4.32 Hemoglobin 11.1 Hematocrit 34.9 Mean Corpuscular Volume 80.6 Mean Corpuscular Hemoglobin 25.6 Mean Corpuscular Hemoglobin 31.8 Concent Red Cell Distribution Width 19.4 Platelet Count 248 Mean Platelet Volume 8.1 Neutrophils (%) (Auto) 82.5 Lymphocytes (%) (Auto) 11.3 Monocytes (%) (Auto) 5.5 Eosinophils (%) (Auto) 0.5 Basophils (%) (Auto) 0.2 Neutrophils # (Auto) 11.7 Lymphocytes # (Auto) 1.6 Monocytes # (Auto) 0.8 Eosinophils # (Auto) 0.1 Basophils # (Auto) 0.0 CBC Comment DIFF FINAL Differential Comment Sodium Level 146 Potassium Level 3.0 Chloride Level 115 Carbon Dioxide Level 24.0 Anion Gap 7 Blood Urea Nitrogen 24 Creatinine 1.32 Estimat Glomerular Filtration 75 Rate Random Glucose 109 Calcium Level 7.2 Protein Corrected Calcium 7.4 Total Bilirubin 0.6 Aspartate Amino Transf 13 (AST/SGOT) Alanine Aminotransferase 35 (ALT/SGPT) Alkaline Phosphatase 69 Total Protein 6.8 Albumin 2.3 Date/Time Procedure Status Source Growth 04/28/17 11:07 Urine Culture Received Urine Catheterized Urine Pending 04/28/17 08:44 Aerobic Blood Culture - Preliminary Resulted Blood Peripheral Gram Positive Cocci 04/28/17 08:44 Anaerobic Blood Culture - Preliminary Resulted Gram Positive Cocci 04/28/17 08:37 Aerobic Blood Culture Resulted Blood Peripheral Pending 04/28/17 08:37 Anaerobic Blood Culture - Preliminary Resulted Gram Positive Cocci Imaging Last Impressions Abdomen X-Ray 04/29/17599 Signed Impressions: Service Date/Time: Saturday, April 29, 2017 03:22 - CONCLUSION: Moderate amount air throughout the colon. G-tube in good position Devin Hassan MD Abdomen/Pelvis CT 04/28/17599 Signed Impressions: Service Date/Time: Friday, April 28, 2017 06:24 - CONCLUSION: 1. Abnormal lungs suggesting either failure or infiltrate. 2. Tube that may be a jejunostomy tube in the stomach. There is moderate gaseous distention of distal small bowel and colon with liquid stool in the ascending colon and minimal solid stool in the descending colon, all suggestive of an ileus. The etiology of this is not readily apparent. I do see a patent SMA and SMV. Shalom Espinal MD FACR Chest X-Ray 04/28/17 0224 Signed Impressions: Service Date/Time: Friday, April 28, 2017 02:41 - CONCLUSION: Lungs are grossly clear. Pronounced rightward thoracic scoliosis Devin Hassan MD Physical Exam HEENT: Normocephalic; atraumatic; no jaundice. Throat is clear. NECK: Neck is supple, no JVD, no lymphadenopathy. CHEST: CTA CARDIAC: Tachycardia, with no murmur gallop or rubs. ABDOMEN: Soft, nondistended, nontender; no hepatosplenomegaly; bowel sounds hypoactive. GJ tube, g to gravity with dark green gastric output EXTREMITIES: Contracted SKIN: Normal; no rash; no jaundice. SOFTWARE QUALITY MANAGER: Nonverbal (Fabiola Rodriguez) Assessment and Plan Plan ASSESSMENT: - Ileus, N/V, Constipation. Abdomen/Pelvis CT 04/28/17 1. Abnormal lungs suggesting either failure or infiltrate. 2. Tube that may be a jejunostomy tube in the stomach. There is moderate gaseous distention of distal small bowel and colon with liquid stool in the ascending colon and minimal solid stool in the descending colon, all suggestive of an ileus. The etiology of this is not readily apparent. I do see a patent SMA and SMV. According to nurse, patient received fleet enema in the ED and had a large bm , the mother reports large BM 04/27 as well. +BM 04/29. The nurse states, patient had one episode of coffee ground emesis upon arrival to the floor, this was noted in the canister, however, G tube to LIWS with green gastric output. - J tube coiled in the stomach- IR for repositioning - Leukocytosis- WBC 14.2. blood culture preliminary shows gram + cocci, urine cx pending, on Zosyn - Episode of coffee ground emesis x 1 per nurse. Hgb is 11.1, no more coffee ground emesis. G tube to LIWS with green gastric output - SIM Per CCM - Hx cerebral palsy, development delay, sz disorder PLAN: - NPO - Dulcolax, fleet enema, lactulose, MOM - IR for repositioning of G-J tube - Consider EGD once stable - Cont PPI - Monitor HH, transfuse as needed - Notify GI of active bleeding - Supportive care - Further recommendations to follow based on results of above. Patient seen and examined by Dr. Mackay and myself and this note is written on his behalf (Fabiola Rodriguez) Physician Comments Patient seen and examined Agree with above Continue with current supportive care Monitor labs (David Mackay MD) Fabiola Rodriguez Apr 29, 2017 11:22 David Mackay MD Apr 29, 2017 19:55
--- NOTE | 2017-04-29 12:15 | PD.ID.CON ---
History of Present Illness Service ID Consult Requested By and Reason for Consult Evaluation and M'ment of bacteremia. Primary Care Physician Andrew St MD Diagnoses: History of Present Illness Most of the history was obtained from review of medical records. is a 36 y/o CM with PMHx of seizure disorder, cerebral palsy, prior h/ o recurrent aspiration pneumonia, prior PSAE pneumoniae, prior Ileus and N/V episodes with resultant aspiration pneumoniae. The G-J tube placement for nutritional support. He was brought to the [facility] Emergency Department by his mom for intractable nausea and vomiting. No history of any fever or constitutional symptoms. On arrival to the emergency room, he was tachycardiac with heart rate of 107-112 and had a blood pressure of 116/64. His laboratory data showed acute kidney injury with creatinine level 1.89, lactic acidemia with a lactic acid level of 4.1. In addition, the patient was found to have leukocytosis with a WBC of 20. Chest x-ray in the emergency room showed no acute cardiopulmonary disease. The patient underwent a KUB of the abdomen which showed G-tube in good position, moderate air throughout the colon. He subsequently underwent CT scan of the abdomen and pelvis which showed jejunostomy tube in the stomach, moderate gaseous distension of the distal small bowel and colon and findings suggestive of ileus. In the emergency room, he was given 2 liters of crystalloids, Zosyn, Zofran and Cerebyx. His Dilantin level measured at 0.6. The patient was initially admitted to [facility] under the hospitalist service. However critical care medicine was consulted by Dr. Rojas for possible aspiration. When seen, the patient is on room air oxygen with a saturation of 94% with blood pressure 113/72 and a pulse of 109. IR was consulted by [facility] for repositioning of the J-tube as it is coiled in the stomach. At the time of my evaluation patient is in the IMC unit. Overnight pt recd 2L NS boluses. UO is good. Patient is on NC 2 L. No reported seizures overnight. Bcx drawn on admission are positive for Staph species ID pending. ID called for same. Review of Systems ROS Limitations: Clinical Condition (Cerebral palsy), Altered Mental Status Past Family Social History Allergies: Coded Allergies: *MDRO Multi-Drug Resistant Organism (Verified Adverse Reaction, Unknown, ) MDR Pseudomonas (sputum) - 11/09/16 Past Medical History 1. Seizure disorder. 2. Cerebral palsy. 3. Scoliosis. 4. Partial critical blindness. Past Surgical History 1. Previous exploratory laparotomy for bowel obstruction. 2. Previous placement of G-J tube. 3. Previous Brina fundoplication. 4. Previous splenectomy. 5. Previous cord surgery at the age of 9. Reported Medications Reported Meds & Active Scripts Active Reported Fludrocortisone (Fludrocortisone Acetate) 0.1 Mg Tab 0.2 Mg PO DAILY Aspirin 81 (Aspirin) 81 Mg Tabdr 81 Mg PO DAILY Phenytoin 100 Mg/4 Ml Oral.susp 100 Mg PO BID Topamax (Topiramate) 100 Mg Tab 100 Mg PO BID Xanax (Alprazolam) 0.5 Mg Tab 0.5 Mg PO Q8H PRN Trazodone (Trazodone HCl) 50 Mg Tab 25 Mg PO PRN PRN Active Ordered Medications Reported Meds & Active Scripts Active Reported Fludrocortisone (Fludrocortisone Acetate) 0.1 Mg Tab 0.2 Mg PO DAILY Aspirin 81 (Aspirin) 81 Mg Tabdr 81 Mg PO DAILY Phenytoin 100 Mg/4 Ml Oral.susp 100 Mg PO BID Topamax (Topiramate) 100 Mg Tab 100 Mg PO BID Xanax (Alprazolam) 0.5 Mg Tab 0.5 Mg PO Q8H PRN Trazodone (Trazodone HCl) 50 Mg Tab 25 Mg PO PRN PRN Family History could not be obtained. Social History Lives at home with . Physical Exam Vital Signs Vital Signs Date Time Temp Pulse Resp B/P Pulse Ox O2 Delivery O2 Flow Rate FiO2 04/29/17 10:00 104 04/29/17 08:00 103 04/29/17 07:44 100 Nasal Cannula 1.00 04/29/17 04:00 97.2 100 25 111/73 100 04/29/17 00:00 97.4 132 28 98/63 98 04/28/17 20:53 98 Nasal Cannula 2.00 04/28/17 20:00 98.8 110 29 105/73 95 04/28/17 18:00 111 04/28/17 17:59 98 Nasal Cannula 2.00 04/28/17 16:00 99.0 122 29 100/71 92 04/28/17 16:00 122 04/28/17 14:01 99.1 103 23 113/72 98 04/28/17 14:00 98 Physical Exam GENERAL: Thin built cachectic male with contractures, in no apparent distress. SKIN: No rashes, ecchymoses or lesions. Cool and dry. HEAD: Atraumatic. Normocephalic. No temporal or scalp tenderness. EYES: Pupils equal round and reactive. Extraocular motions intact. No scleral icterus. No injection or drainage. ENT: Nose without bleeding, purulent drainage or septal hematoma. Throat without erythema, tonsillar hypertrophy or exudate. Uvula midline. Airway patent. NECK: Trachea midline. Supple, nontender, no meningeal signs. CARDIOVASCULAR: Regular rate and rhythm without murmurs, gallops, or rubs. RESPIRATORY: Clear to auscultation. Breath sounds equal bilaterally. No wheezes , rales, or rhonchi. GASTROINTESTINAL: Abdomen soft, non-tender, nondistended. J tube site with no e.o infection. MUSCULOSKELETAL: Extremities without clubbing, cyanosis, or edema. No joint tenderness, effusion, or edema noted. No calf tenderness. Negative Homans sign bilaterally. NEUROLOGICAL: Awake and alert. Contractures with loss of muscle mass. Psych: could not be assessed. IV line sites with no e.o infection. Laboratory Laboratory Tests Test 04/28/17 04/28/17 04/29/17 13:30 15:34 08:31 Nasal Screen MRSA (PCR) MRSA NOT DETECTED Lactic Acid Level 3.0 White Blood Count 14.2 Red Blood Count 4.32 Hemoglobin 11.1 Hematocrit 34.9 Mean Corpuscular Volume 80.6 Mean Corpuscular Hemoglobin 25.6 Mean Corpuscular Hemoglobin 31.8 Concent Red Cell Distribution Width 19.4 Platelet Count 248 Mean Platelet Volume 8.1 Neutrophils (%) (Auto) 82.5 Lymphocytes (%) (Auto) 11.3 Monocytes (%) (Auto) 5.5 Eosinophils (%) (Auto) 0.5 Basophils (%) (Auto) 0.2 Neutrophils # (Auto) 11.7 Lymphocytes # (Auto) 1.6 Monocytes # (Auto) 0.8 Eosinophils # (Auto) 0.1 Basophils # (Auto) 0.0 CBC Comment DIFF FINAL Differential Comment Sodium Level 146 Potassium Level 3.0 Chloride Level 115 Carbon Dioxide Level 24.0 Anion Gap 7 Blood Urea Nitrogen 24 Creatinine 1.32 Estimat Glomerular Filtration 75 Rate Random Glucose 109 Calcium Level 7.2 Protein Corrected Calcium 7.4 Total Bilirubin 0.6 Aspartate Amino Transf 13 (AST/SGOT) Alanine Aminotransferase 35 (ALT/SGPT) Alkaline Phosphatase 69 Total Protein 6.8 Albumin 2.3 Date/Time Procedure Status Source Growth 04/28/17 11:07 Urine Culture - Preliminary Resulted Urine Catheterized Urine NO GROWTH IN 24 HOURS. 04/28/17 08:44 Aerobic Blood Culture - Preliminary Resulted Blood Peripheral Gram Positive Cocci 04/28/17 08:44 Anaerobic Blood Culture - Preliminary Resulted Gram Positive Cocci Result Diagram: 04/29/1783004/29/17830 Imaging Last Impressions Abdomen X-Ray 04/29/17599 Signed Impressions: Service Date/Time: Saturday, April 29, 2017 03:22 - CONCLUSION: Moderate amount air throughout the colon. G-tube in good position Devin Hassan MD Abdomen/Pelvis CT 04/28/17599 Signed Impressions: Service Date/Time: Friday, April 28, 2017 06:24 - CONCLUSION: 1. Abnormal lungs suggesting either failure or infiltrate. 2. Tube that may be a jejunostomy tube in the stomach. There is moderate gaseous distention of distal small bowel and colon with liquid stool in the ascending colon and minimal solid stool in the descending colon, all suggestive of an ileus. The etiology of this is not readily apparent. I do see a patent SMA and SMV. Shalom Espinal MD FACR Chest X-Ray 04/28/174 Signed Impressions: Service Date/Time: Friday, April 28, 2017 02:41 - CONCLUSION: Lungs are grossly clear. Pronounced rightward thoracic scoliosis Devin Hassan MD Assessment and Plan Assessment and Plan Possible sepsis on admission. Possible aspiration pneumonia present on admission given ileus, N/V prior to admission. Staph bacteremia ID pending (No CL or PICC on admission) Cerebral Palsy Seizure disorder. J tube site ok. PSAE Recs: Continue Zosyn IV (cover suspected aspiration Pneumonia. Prior PSAE history) Continue Vanco IV (target trough 15-20 for bacteremia) for now. DC Oral azithro. Follow cultures. Follow clinically. Janet Yates MD Apr 29, 2017 12:15 Janet Yates MD Apr 29, 2017 12:15
--- NOTE | 2017-04-29 13:22 | RADRPT ---
EXAM DATE/TIME: 04/29/2017 12:22 [facility] COMPARISON: CHEST SINGLE AP, April 28, 2017, 2:41. INDICATIONS : Evaluate pneumonia MEDICAL HISTORY : Cerebral palsy, seizures. SURGICAL HISTORY : None. ENCOUNTER: Subsequent ACUITY: 2 days PAIN SCORE: Non-responsive. LOCATION: Bilateral chest FINDINGS: Perihilar and bibasilar patchiness is noted consistent with pneumonia or moderate pulmonary edema. C linical correlation is recommended. The heart is stable. Scoliosis of the thoracic spine is stable. CONCLUSION: 1. Perihilar and bibasilar patchiness consistent with pneumonia versus moderate pulmonary edema. Cl inical correlation is recommended. 2. Scoliosis of the thoracic spine. Dharmesh Grullon MD on April 29, 2017 at 13:04 Board Certified Radiologist. This report was verified electronically.
[2017-04-29] MEDS ORDERED: BUMETANIDE INJ 1 MG/4 ML VIAL IV PUSH ONE ×3 (14:30→18:00)
[2017-04-29] MEDS: PANTOPRAZOLE SODIUM 40 MG VIAL IV PUSH SCH (15:01)
[2017-04-29] MEDS: LORazepam 2 MG/ML VIAL IV PRN ×3 (15:26→23:57)
[2017-04-29] MEDS: METOPROLOL TARTRATE 25 MG TAB PO SCH (18:00)
[2017-04-29] MEDS: HALOPERIDOL LACTATE 5 MG/ML AMP IV PRN (21:59)
[2017-04-30] VITALS (9 sets, daily range): BP systolic 90–132; BP diastolic 64–76; PULSE 82–104; RESP 15–38; TEMP 97–98; O2SAT 97–100
[2017-04-30 01:00] LABS: BLOOD GAS BASE EXCESS -4.2 mmol/L (-2-2); BLOOD GAS CARBOXYHEMOGLOBIN 1.4 % (0-4); BLOOD GAS HCO3 21 mmol/L (22-26); BLOOD GAS METHEMOGLOBIN 1.2 % (0-2); BLOOD GAS O2 HGB SATURATION 94 % (90-100); BLOOD GAS OXYGEN CONTENT 13.6 Vol % (12.0-20.0); BLOOD GAS PCO2 47 mmHg (38-42); BLOOD GAS PO2 96 mmHg (61-120); BLOOD GAS TOTAL HGB 10.2 G/DL (12.0-16.0); TEMP CORR TO 98.6
[2017-04-30 01:01] LABS: CRITICAL VALUE YES; DRAW SITE RT RADIAL; LITER FLOW 10 L/M; NUMBER OF ARTERIAL PUNCTURES 1; OXYGEN DEVICE SIMPLE MASK; STAT NO; ULNAR PULSE PRESENT
[2017-04-30] MEDS: DEXT 5%-NACL 0.45% 1000 ML INJ 1,000 ML IV SCH ×2 (02:23→22:50)
[2017-04-30] MEDS: PIPERACIL-TAZO 3.375 GM PREMIX 50 ML IV SCH ×4 (02:23→21:11)
[2017-04-30] MEDS: INSULIN NovoLIN REGULAR SUPPLEMENTAL SCALE SQ SCH ×6 (02:28→22:51)
[2017-04-30] MEDS: RESP: ALBUTEROL 2.5 MG/IPRATROPIUM 0.5 MG NEB (SCH) NEB ×4 (03:19→21:25)
[2017-04-30] MEDS: CHLORHEXIDINE GLUCONATE 2 % 1 PACK (2 CLOTHS)(taper/protocol) TOPICAL SCH (03:51)
[2017-04-30] MEDS: METOPROLOL TARTRATE 25 MG TAB PO SCH ×2 (04:44→18:00)
[2017-04-30 05:45] LABS: BASOPHIL % 0.1 % (0.0-2.0); EOSINOPHIL % 0.3 % (0.0-4.0); HEMATOCRIT 33.2 % (39.0-51.0); HEMO FLAGS DIFF FINAL; LYMPH % 12.8 % (9.0-44.0); LYMPHOCYTE # 1.6 TH/MM3 (1.0-4.8); MEAN CELL VOLUME 80.5 FL (80.0-100.0); MEAN CORPUSCULAR HEMOGLOBIN 24.9 PG (27.0-34.0); MONO % 4.5 % (0.0-8.0); NEUT % 82.3 % (16.0-70.0); PLATELET COUNT 269 TH/MM3 (150-450); RED BLOOD COUNT 4.12 MIL/MM3 (4.50-5.90); RED CELL DISTRIBUTION WIDTH 19.1 % (11.6-17.2); WHITE BLOOD COUNT 12.1 TH/MM3 (4.0-11.0)
[2017-04-30 06:13] LABS: POTASSIUM 3.1 MEQ/L (3.5-5.1)
[2017-04-30] MEDS: POTASSIUM CHLOR 20 MEQ PREMIX 100 ML IV PRN ×4 (06:26→13:34)
[2017-04-30] MEDS ORDERED: BUMETANIDE INJ 1 MG/4 ML VIAL IV PUSH ONE (08:00)
--- NOTE | 2017-04-30 08:00 | HHI.CCPN ---
Subjective Remarks/Hospital Course The patient is a 36-year-old male with past medical history of seizure disorder , cerebral palsy, previous G-J tube placement for nutritional support who presented to the [facility] Emergency Department by his mom for intractable nausea and vomiting. No history of any fever or constitutional symptoms. In addition, no history of any abdominal pain. On arrival to the emergency room, he was tachycardiac with heart rate of 107-112 and had a blood pressure of 116/64. His laboratory data showed acute kidney injury with creatinine level 1.89, lactic acidemia with a lactic acid level of 4.1. In addition, the patient was found to have leukocytosis with a WBC of 20. Chest x- ray in the emergency room showed no acute cardiopulmonary disease. The patient underwent a KUB of the abdomen which showed G-tube in good position, moderate air throughout the colon. He subsequently underwent CT scan of the abdomen and pelvis which showed jejunostomy tube in the stomach, moderate gaseous distension of the distal small bowel and colon and findings suggestive of ileus. In the emergency room, he was given 2 liters of crystalloids, Zosyn, Zofran and Cerebyx. His Dilantin level measured at 0.6. The patient was initially admitted to [facility] under the hospitalist service. However critical care medicine was consulted by Dr. Rojas for possible aspiration. When seen, the patient is on room air oxygen with a saturation of 94% with blood pressure 113/ 72 and a pulse of 109. IR was consulted by [facility] for repositioning of the J- tube as it is coiled in the stomach. 04/29 Patient was given 2L NS boluses overnight for tachycardia. Afebrile. WBC is trending down. 04/30 Patient was placed on BIPAP last night for desaturation. WBC is trending down, afebrile. Objective Vital Signs Date Time Temp Pulse Resp B/P Pulse Ox O2 Delivery O2 Flow Rate FiO2 04/30/17 04:53 97 35 04/30/17 04:00 97.9 96 15 96/66 04/29/17 21:17 Nasal Cannula 2.00 Intake and Output 04/29/17 04/29/17 04/29/17 07:59 15:59 23:59 Intake Total 2739 ml 1518 ml 606 ml Output Total 300 ml 625 ml 1700 ml Balance 2439 ml 893 ml -1094 ml Result Diagram: 04/30/17 0442 04/30/17 0442 Other Results Laboratory Tests Test 04/29/17 04/29/17 04/29/17 04/30/17 08:31 12:31 19:41 00:43 White Blood Count 14.2 TH/MM3 Red Blood Count 4.32 MIL/MM3 Hemoglobin 11.1 GM/DL Hematocrit 34.9 % Mean Corpuscular Volume 80.6 FL Mean Corpuscular Hemoglobin 25.6 PG Mean Corpuscular Hemoglobin 31.8 % Concent Red Cell Distribution Width 19.4 % Platelet Count 248 TH/MM3 Mean Platelet Volume 8.1 FL Neutrophils (%) (Auto) 82.5 % Lymphocytes (%) (Auto) 11.3 % Monocytes (%) (Auto) 5.5 % Eosinophils (%) (Auto) 0.5 % Basophils (%) (Auto) 0.2 % Neutrophils # (Auto) 11.7 TH/MM3 Lymphocytes # (Auto) 1.6 TH/MM3 Monocytes # (Auto) 0.8 TH/MM3 Eosinophils # (Auto) 0.1 TH/MM3 Basophils # (Auto) 0.0 TH/MM3 CBC Comment DIFF FINAL Differential Comment Sodium Level 146 MEQ/L Potassium Level 3.0 MEQ/L 4.5 MEQ/L Chloride Level 115 MEQ/L Carbon Dioxide Level 24.0 MEQ/L Anion Gap 7 MEQ/L Blood Urea Nitrogen 24 MG/DL Creatinine 1.32 MG/DL Estimat Glomerular Filtration 75 ML/MIN Rate Random Glucose 109 MG/DL Calcium Level 7.2 MG/DL Protein Corrected Calcium 7.4 MG/DL Phosphorus Level 2.3 MG/DL Total Bilirubin 0.6 MG/DL Aspartate Amino Transf 13 U/L (AST/SGOT) Alanine Aminotransferase 35 U/L (ALT/SGPT) Alkaline Phosphatase 69 U/L Total Protein 6.8 GM/DL Albumin 2.3 GM/DL Lactic Acid Level 1.6 mmol/L Blood Gas Puncture Site RT RADIAL Blood Gas Patient Temperature 98.6 Blood Gas HCO3 21 mmol/L Blood Gas Base Excess -4.2 mmol/L Blood Gas Oxygen Saturation 94 % Arterial Blood pH 7.28 Arterial Blood Partial 47 mmHg Pressure CO2 Arterial Blood Partial 96 mmHg Pressure O2 Arterial Blood Oxygen Content 13.6 Vol % Arterial Blood 1.4 % Carboxyhemoglobin Arterial Blood Methemoglobin 1.2 % Blood Gas Hemoglobin 10.2 G/DL Oxygen Delivery Device SIMPLE MASK Blood Gas Liter Flow 10 L/M Test 04/30/17 04:42 White Blood Count 12.1 TH/MM3 Red Blood Count 4.12 MIL/MM3 Hemoglobin 10.3 GM/DL Hematocrit 33.2 % Mean Corpuscular Volume 80.5 FL Mean Corpuscular Hemoglobin 24.9 PG Mean Corpuscular Hemoglobin 31.0 % Concent Red Cell Distribution Width 19.1 % Platelet Count 269 TH/MM3 Mean Platelet Volume 8.0 FL Neutrophils (%) (Auto) 82.3 % Lymphocytes (%) (Auto) 12.8 % Monocytes (%) (Auto) 4.5 % Eosinophils (%) (Auto) 0.3 % Basophils (%) (Auto) 0.1 % Neutrophils # (Auto) 10.0 TH/MM3 Lymphocytes # (Auto) 1.6 TH/MM3 Monocytes # (Auto) 0.6 TH/MM3 Eosinophils # (Auto) 0.0 TH/MM3 Basophils # (Auto) 0.0 TH/MM3 CBC Comment DIFF FINAL Differential Comment Sodium Level 143 MEQ/L Potassium Level 3.1 MEQ/L Chloride Level 111 MEQ/L Carbon Dioxide Level 24.0 MEQ/L Anion Gap 8 MEQ/L Blood Urea Nitrogen 16 MG/DL Creatinine 1.24 MG/DL Estimat Glomerular Filtration 81 ML/MIN Rate Random Glucose 107 MG/DL Calcium Level 7.8 MG/DL Imaging Last Impressions Abdomen X-Ray 04/29/17 0600 Signed Impressions: Service Date/Time: Saturday, April 29, 2017 03:22 - CONCLUSION: Moderate amount air throughout the colon. G-tube in good position Devin Hassan MD Chest X-Ray 04/29/17 0000 Signed Impressions: Service Date/Time: Saturday, April 29, 2017 12:22 - CONCLUSION: 1. Perihilar and bibasilar patchiness consistent with pneumonia versus moderate pulmonary edema. Clinical correlation is recommended. 2. Scoliosis of the thoracic spine. Dharmesh Grullon MD Abdomen/Pelvis CT 04/28/17 0600 Signed Impressions: Service Date/Time: Friday, April 28, 2017 06:24 - CONCLUSION: 1. Abnormal lungs suggesting either failure or infiltrate. 2. Tube that may be a jejunostomy tube in the stomach. There is moderate gaseous distention of distal small bowel and colon with liquid stool in the ascending colon and minimal solid stool in the descending colon, all suggestive of an ileus. The etiology of this is not readily apparent. I do see a patent SMA and SMV. Shalom Espinal MD FACR Objective Remarks GENERAL: Patient is 36 yo lying in bed in NAD SKIN: Warm and dry. HEAD: Normocephalic. EYES: No scleral icterus. No injection or drainage. NECK: Supple, trachea midline. No JVD or lymphadenopathy. CARDIOVASCULAR:Tachy without murmurs, gallops, or rubs. RESPIRATORY: Breath sounds equal bilaterally. No accessory muscle use. GASTROINTESTINAL: Abdomen soft, non-tender, nondistended. MUSCULOSKELETAL: No cyanosis, or edema. Neuro: Contracted, non-verbal. A/P Assessment and Plan 1. Resp Insuff 2. Gram positive bacteremia 3. Leukocytosis. 4. Lactic acidemia. 5. Acute kidney injury. 6. Ileus. 7. Malfunctioning J tube. 8. History of cerebral palsy. 9. History of seizures. Plan Neuro: Monitor neuro status closely and avoid any sedatives. Continue with antiseizure meds. on Dilantin 100 mg BID. Dilantin level is 0.6. On Topamax 100 mg BID Pulm: Continue with Oxygen to maintain sats above 92%. Bronchodilators and aspiration precautions. NIPPV for resp distress CXR 04/29: Perihilar infiltrates.. fluid overload vs aspiration Recheck CXR today, check ABG CV: Monitor HR and BP and maintain MAP > 65 mmHg. Given additional 2L NS boluses overnight for tachycardia Serial lactic acid monitoring ( trending down) Continue with Florinef 0.2 mg daily. Aspirin 81 mg daily. : Monitor renal function, I/O's and avoid nephrotoxins. Will need K replacement today Change D51/2NS@50ml/hr, diurese with Bumex 1mg x1 GI: On Protonix 40 mg daily for GI prophylaxis. GI is following IR consulted to reposition J-tube ID: Continue with abx( azithromycin, Zosyn, Vanco) WBC is trending down. Monitor for signs of infection(fever and WBCs). 04/28 BC 2/4 sets: GPC, urine cx: No growth 04/29 BC: NGTD Heme: Monitor CBC Endo: SSI with Accu-Chek for glycemic control GI prophylaxis with Protonix 40 mg daily. DVT prophylaxis with SCDs. Level 3 Anjelica Kwon MD Apr 30, 2017 08:00
[2017-04-30] MEDS: HEPARIN SODIUM - SQ 10,000 UNITS/ML VIAL SQ SCH ×2 (08:30→21:11)
[2017-04-30] MEDS: VANCOMYCIN INJ 650 MG in SODIUM CHLOR 0.9% 250 ML INJ 250 ML IV SCH (08:39)
[2017-04-30] MEDS: PHENYTOIN SUSP 100 MG/4 ML CUP PO SCH ×2 (08:39→21:11)
[2017-04-30] MEDS: AZITHROMYCIN 250 MG TAB G-TUBE SCH (08:40)
[2017-04-30] MEDS: TOPIRAMATE 100 MG TAB PO SCH ×2 (08:40→21:11)
[2017-04-30] MEDS: SODIUM CHLORIDE 0.9% FLUSH 10 ML FLUSH IV FLUSH SCH ×2 (08:40→21:00)
[2017-04-30] MEDS: FLUDROCORTISONE ACETATE 0.1 MG TAB PO SCH (08:40)
--- NOTE | 2017-04-30 08:55 | RADRPT ---
EXAM DATE/TIME: 04/30/2017 08:03 [facility] COMPARISON: CHEST SINGLE AP, April 29, 2017, 12:22. INDICATIONS : Short of breath. MEDICAL HISTORY : Cerebral palsy, seizure SURGICAL HISTORY : None. ENCOUNTER: Subsequent ACUITY: 3 days PAIN SCORE: Non-responsive. LOCATION: chest FINDINGS: Rotated and underinflated AP view of the chest demonstrates a normal-sized cardiac silhouette. There is stable right lower lung zone airspace consolidation and stable retrocardiac opacity. No pleural ef fusion or pneumothorax is identified. Bones and soft tissues demonstrate no acute finding. There is s evere thoracolumbar scoliosis. CONCLUSION: Stable chest x-ray with right lower lung zone airspace consolidation and left lower lobe consolidatio n versus atelectasis. Mg Darling MD on April 30, 2017 at 8:52 Board Certified Radiologist. This report was verified electronically.
[2017-04-30] MEDS: ASPIRIN EC 81 MG TABEC PO SCH (09:00)
[2017-04-30 09:40] LABS: BLOOD GAS CARBOXYHEMOGLOBIN 1.6 % (0-4); BLOOD GAS HCO3 21 mmol/L (22-26); BLOOD GAS METHEMOGLOBIN 1.1 % (0-2); BLOOD GAS O2 HGB SATURATION 93 % (90-100); BLOOD GAS OXYGEN CONTENT 14.2 Vol % (12.0-20.0); BLOOD GAS PCO2 38 mmHg (38-42); BLOOD GAS PO2 76 mmHg (61-120); BLOOD GAS TOTAL HGB 10.8 G/DL (12.0-16.0); CRITICAL VALUE NO; DRAW SITE RT RADIAL; FIO2 35 %; NUMBER OF ARTERIAL PUNCTURES 1; OXYGEN DEVICE BIPAP; STAT NO; TEMP CORR TO 98.6; ULNAR PULSE PRESENT; VENT SETTINGS IPAP+14/EPAP+5
--- NOTE | 2017-04-30 10:17 | HHI.FPPN ---
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 REVIEWED Objective Vitals Vital Signs Date Time Temp Pulse Resp B/P Pulse Ox O2 Delivery O2 Flow Rate FiO2 04/30/17 08:00 97.1 82 31 90/65 99 04/30/17 04:53 97 35 04/30/17 04:00 97.9 96 15 96/66 98 04/30/17 01:15 100 100 04/30/17 00:00 98.0 104 33 99/64 100 04/29/17 21:17 97 Nasal Cannula 2.00 04/29/17 20:00 98.2 114 31 110/67 98 04/29/17 18:00 112 43 108/69 95 04/29/17 18:00 112 04/29/17 17:00 127 40 116/73 94 04/29/17 16:00 98.0 128 26 161/78 97 04/29/17 16:00 128 04/29/17 15:00 113 40 120/78 93 04/29/17 14:00 114 38 121/85 97 04/29/17 14:00 114 04/29/17 13:01 120 31 151/79 98 04/29/17 12:01 98.1 120 26 114/74 95 04/29/17 12:00 114 04/29/17 11:00 117 17 119/74 100 I/O 04/29/17 04/29/17 04/29/17 04/30/17 04/30/17 04/30/17 07:00 15:00 23:00 07:00 15:00 23:00 Intake Total 2739 ml 1518 ml 606 ml 417 ml Output Total 300 ml 625 ml 1700 ml 750 ml Balance 2439 ml 893 ml -1094 ml -333 ml Intake Oral 0 ml 0 ml IV Total 2679 ml 1398 ml 546 ml 357 ml Other 60 ml 120 ml 60 ml 60 ml Output Urine Total 300 ml 625 ml 1700 ml 750 ml # Bowel Movements 0 0 0 1 Result Diagram: 04/30/17 0442 04/30/17 0442 Imaging Last 72 hours Impressions Chest X-Ray 04/30/17 0000 Signed Impressions: Service Date/Time: Sunday, April 30, 2017 08:03 - CONCLUSION: Stable chest x-ray with right lower lung zone airspace consolidation and left lower lobe consolidation versus atelectasis. Mg Darling MD Abdomen X-Ray 04/29/17599 Signed Impressions: Service Date/Time: Saturday, April 29, 2017 03:22 - CONCLUSION: Moderate amount air throughout the colon. G-tube in good position Devin Hassan MD Chest X-Ray 04/29/17 0000 Signed Impressions: Service Date/Time: Saturday, April 29, 2017 12:22 - CONCLUSION: 1. Perihilar and bibasilar patchiness consistent with pneumonia versus moderate pulmonary edema. Clinical correlation is recommended. 2. Scoliosis of the thoracic spine. Dharmesh Grullon MD Abdomen/Pelvis CT 04/28/17599 Signed Impressions: Service Date/Time: Friday, April 28, 2017 06:24 - CONCLUSION: 1. Abnormal lungs suggesting either failure or infiltrate. 2. Tube that may be a jejunostomy tube in the stomach. There is moderate gaseous distention of distal small bowel and colon with liquid stool in the ascending colon and minimal solid stool in the descending colon, all suggestive of an ileus. The etiology of this is not readily apparent. I do see a patent SMA and SMV. Shalom Espinal MD FACR Chest X-Ray 04/28/17223 Signed Impressions: Service Date/Time: Friday, April 28, 2017 02:41 - CONCLUSION: Lungs are grossly clear. Pronounced rightward thoracic scoliosis Devin Hassan MD Abdomen X-Ray 04/28/17223 Signed Impressions: Service Date/Time: Friday, April 28, 2017 02:30 - CONCLUSION: G-tube in good position. Moderate air throughout the colon. Both hips remain dislocated Devin Hassan MD Objective Remarks GENERAL: SKIN: Warm and dry. HEAD: Atraumatic. Normocephalic. EYES: Pupils equal and round. No scleral icterus. No injection or drainage. ENT: No nasal bleeding or discharge. Mucous membranes pink and moist. NECK: Trachea midline. No JVD. CARDIOVASCULAR: Regular rate and rhythm. RESPIRATORY: No accessory muscle use. Clear to auscultation. Breath sounds equal bilaterally. GASTROINTESTINAL: Abdomen soft, non-tender, nondistended. Hepatic and splenic margins not palpable. MUSCULOSKELETAL: Extremities without clubbing, cyanosis, or edema. No obvious deformities. NEUROLOGICAL: Awake and alert. No obvious cranial nerve deficits. Motor grossly within normal limits. 1 out of 5 muscle strength in the arms and legs. PSYCHIATRIC: lethargic, encephalopathic Medications and IVs Current Medications Medications (Trade) Dose Ordered Sig/Carlotta Route Start Time Stop Time Status Last Admin (NS Flush) 2 ml UNSCH PRN IV FLUSH 04/28/17 08:30 (NS Flush) 2 ml BID IV FLUSH 04/28/17 09:00 04/30/17 08:40 (Zofran Inj) 4 mg Q6H PRN IVP 04/28/17 08:30 04/28/17 10:15 (Heparin Inj) 5,000 units Q12H SQ 04/28/17 08:30 04/29/17 19:55 (Narcan Inj) 0.4 mg UNSCH PRN IV 04/28/17 08:30 (Milk Of Magnesia Liq) 30 ml Q12H PRN PO 04/28/17 08:30 (Senokot) 17.2 mg Q12H PRN PO 04/28/17 08:30 (Dulcolax Supp) 10 mg DAILY PRN RECTAL 04/28/17 08:30 (Lactulose Liq) 30 ml DAILY PRN PO 04/28/17 08:30 (Zithromax) 250 mg DAILY G-TUBE 04/28/17 09:00 04/30/17 08:40 (Xanax) 0.5 mg Q8H PRN PO 04/28/17 10:15 04/28/17 22:05 (Ecotrin Ec) 81 mg DAILY PO 04/29/17 09:00 04/29/17 08:54 (Florinef) 0.2 mg DAILY PO 04/29/17 09:00 04/30/17 08:40 (Dilantin Liq) 100 mg BID PO 04/28/17 21:00 04/30/17 08:39 (Topamax) 100 mg BID PO 04/28/17 21:00 04/30/17 08:40 (Desyrel) 25 mg DAILY PRN PO 04/28/17 10:15 Miscellaneous 1 ea 1 ea UNSCH PRN OTHER 04/28/17 10:30 (Zosyn 3.375 Gm Premix) 50 ml @ 100 mls/hr Q6H IV 04/28/17 15:00 04/30/17 08:39 (D50w (Vial) Inj) 50 ml UNSCH PRN IV 04/28/17 14:15 (Glucagon Inj) 1 mg UNSCH PRN OTHER 04/28/17 14:15 (NovoLIN R SUPPLEMENTAL SCALE) 1 Q4H SQ 04/28/17 15:00 (Protonix Inj) 40 mg Q24H IV PUSH 04/28/17 16:00 04/29/17 15:01 Miscellaneous Information Patient in critical care unit? Ass... Q361D .XX 04/28/17 21:15 (Chlorhexidine 2% Cloth) 3 pack DAILY@04 TOPICAL 04/29/17 04:00 05/03/17 04:01 04/30/17 03:51 (Chlorhexidine 2% Cloth) 3 pack UNSCH PRN TOPICAL 04/28/17 21:15 05/03/17 21:13 (Haldol Inj) 5 mg Q4H PRN IV 04/28/17 23:30 04/29/17 21:59 Lorazepam 0.5 mg 0.5 mg Q4H PRN IV 04/28/17 23:45 04/29/17 23:57 Pharmacy Profile Note 0 ml @ 0 mls/hr UNSCH OTHER 04/29/17 09:15 Potassium Chloride 100 ml @ 50 mls/hr Q2H PRN IV 04/29/17 09:30 (KCl 20 Meq Premix Inj) 100 ml @ 50 mls/hr Q2H PRN IV 04/29/17 09:30 04/30/17 08:42 Potassium Bicarb/ Potassium Chloride 50 meq 50 meq UNSCH PRN PO 04/29/17 09:30 04/29/17 10:13 Potassium Chloride 100 ml @ 25 mls/hr UNSCH PRN IV 04/29/17 09:30 Potassium Chloride 100 ml @ 50 mls/hr Q2H PRN IV 04/29/17 09:30 (Magnesium Sulfate Inj/NS Inj) 100 ml @ 50 mls/hr UNSCH PRN IV 04/29/17 09:30 Magnesium Oxide 800 mg 800 mg UNSCH PRN PO 04/29/17 09:30 (Magnesium Sulfate Inj/NS Inj) 100 ml @ 50 mls/hr UNSCH PRN IV 04/29/17 09:30 Potassium Phosphate 2000 mg 2,000 mg Q4H PRN PO 04/29/17 09:30 (Sodium Phosphate Inj/NS 250 ml Inj) 250 ml @ 42 mls/hr UNSCH PRN IV 04/29/17 09:30 Potassium Phosphate 2000 mg 2,000 mg UNSCH PRN PO/TUBE 04/29/17 09:30 Potassium Phosphate 30 mmol/ Sodium Chloride 260 ml @ 42 mls/hr UNSCH PRN IV 04/29/17 09:30 Dextrose/Sodium Chloride 1,000 ml @ 50 mls/hr Q20H IV 04/29/17 10:00 04/30/17 02:23 (Vancomycin Inj/ NS 250 ml Inj) 256.5 ml @ 256.5 mls/ hr Q24H IV 04/30/17 10:00 04/30/17 08:39 Miscellaneous Information SPECIFIC LAB TO BE ... ONCE ONCE .XX 05/02/17 09:45 05/02/17 09:46 (Lopressor) 25 mg Q12H PO 04/29/17 18:00 04/30/17 04:44 A/P Assessment and Plan Respiratory insufficiency ILEUS LACTIC ACIDOSIS GP BACTEREMIA SIM Malfunctioning J tube. Cerebral palsy. SZ PLAN: CXR Dilantin 100 mg BID. Topamax 100 mg BID NEBS, and aspiration precautions. Lactic acid level Florinef 0.2 mg daily. Aspirin 81 mg daily. D5 ivf Protonix 40 mg daily for GI prophylaxis. GI is following IR consulted to reposition J-tube IV abx SSI Protonix 40 mg daily. DVT prophylaxis with SCDs. Andrew St MD Apr 30, 2017 10:17
[2017-04-30] MEDS: PANTOPRAZOLE SODIUM 40 MG VIAL IV PUSH SCH (14:54)
--- NOTE | 2017-04-30 16:13 | HHI.GIFU ---
Subjective Remarks Resting in bed in no distress. Respirations even/unlabored. No active gi bleeding. (+) BM steward/stewardess night. Objective Vitals I&O Vital Signs Date Time Temp Pulse Resp B/P Pulse Ox O2 Delivery O2 Flow Rate FiO2 04/30/17 12:00 97.3 91 38 132/76 99 04/30/17 08:00 97.1 82 31 90/65 99 04/30/17 04:53 97 35 04/30/17 04:00 97.9 96 15 96/66 98 04/30/17 01:15 100 100 04/30/17 00:00 98.0 104 33 99/64 100 04/29/17 21:17 97 Nasal Cannula 2.00 04/29/17 20:00 98.2 114 31 110/67 98 04/29/17 18:00 112 43 108/69 95 04/29/17 18:00 112 04/29/17 17:00 127 40 116/73 94 04/29/17 16:00 98.0 128 26 161/78 97 04/29/17 16:00 128 I/O 04/29/17 04/29/17 04/29/17 04/30/17 04/30/17 04/30/17 07:00 15:00 23:00 07:00 15:00 23:00 Intake Total 2739 ml 1518 ml 606 ml 417 ml 1139 ml Output Total 300 ml 625 ml 1700 ml 750 ml 2000 ml Balance 2439 ml 893 ml -1094 ml -333 ml -861 ml Intake Oral 0 ml 0 ml 0 ml IV Total 2679 ml 1398 ml 546 ml 357 ml 1109 ml Other 60 ml 120 ml 60 ml 60 ml 30 ml Output Urine Total 300 ml 625 ml 1700 ml 750 ml 2000 ml # Bowel Movements 0 0 0 1 0 Laboratory Laboratory Tests Test 04/29/17 04/30/17 04/30/17 04/30/17 19:41 00:43 04:42 09:25 Potassium Level 4.5 3.1 Blood Gas Puncture Site RT RADIAL RT RADIAL Blood Gas Patient Temperature 98.6 98.6 Blood Gas HCO3 21 21 Blood Gas Base Excess -4.2 -3.0 Blood Gas Oxygen Saturation 94 93 Arterial Blood pH 7.28 7.37 Arterial Blood Partial 47 38 Pressure CO2 Arterial Blood Partial 96 76 Pressure O2 Arterial Blood Oxygen Content 13.6 14.2 Arterial Blood 1.4 1.6 Carboxyhemoglobin Arterial Blood Methemoglobin 1.2 1.1 Blood Gas Hemoglobin 10.2 10.8 Oxygen Delivery Device SIMPLE MASK BIPAP Blood Gas Liter Flow 10 White Blood Count 12.1 Red Blood Count 4.12 Hemoglobin 10.3 Hematocrit 33.2 Mean Corpuscular Volume 80.5 Mean Corpuscular Hemoglobin 24.9 Mean Corpuscular Hemoglobin 31.0 Concent Red Cell Distribution Width 19.1 Platelet Count 269 Mean Platelet Volume 8.0 Neutrophils (%) (Auto) 82.3 Lymphocytes (%) (Auto) 12.8 Monocytes (%) (Auto) 4.5 Eosinophils (%) (Auto) 0.3 Basophils (%) (Auto) 0.1 Neutrophils # (Auto) 10.0 Lymphocytes # (Auto) 1.6 Monocytes # (Auto) 0.6 Eosinophils # (Auto) 0.0 Basophils # (Auto) 0.0 CBC Comment DIFF FINAL Differential Comment Sodium Level 143 Chloride Level 111 Carbon Dioxide Level 24.0 Anion Gap 8 Blood Urea Nitrogen 16 Creatinine 1.24 Estimat Glomerular Filtration 81 Rate Random Glucose 107 Calcium Level 7.8 Blood Gas Ventilator Setting IPAP+14/EPAP+5 Blood Gas Inspired Oxygen 35 Date/Time Procedure Status Source Growth 04/29/17 15:06 Aerobic Blood Culture - Preliminary Resulted Blood Peripheral NO GROWTH IN 1 DAY 04/29/17 15:06 Anaerobic Blood Culture - Final Resulted Blood Peripheral ONLY AEROBIC CULTURE ORDERED 04/28/17 11:07 Urine Culture - Final Complete Urine Catheterized Urine NO GROWTH IN 48 HOURS. 04/28/17 08:44 Aerobic Blood Culture - Final Complete Blood Peripheral Staph Sp Coagulase Negative 04/28/17 08:44 Anaerobic Blood Culture - Final Complete Staph Sp Coagulase Negative Imaging Last Impressions Chest X-Ray 04/30/17 0000 Signed Impressions: Service Date/Time: Sunday, April 30, 2017 08:03 - CONCLUSION: Stable chest x-ray with right lower lung zone airspace consolidation and left lower lobe consolidation versus atelectasis. Mg Darling MD Abdomen X-Ray 04/29/17 0600 Signed Impressions: Service Date/Time: Saturday, April 29, 2017 03:22 - CONCLUSION: Moderate amount air throughout the colon. G-tube in good position Devin Hassan MD Abdomen/Pelvis CT 04/28/17 0600 Signed Impressions: Service Date/Time: Friday, April 28, 2017 06:24 - CONCLUSION: 1. Abnormal lungs suggesting either failure or infiltrate. 2. Tube that may be a jejunostomy tube in the stomach. There is moderate gaseous distention of distal small bowel and colon with liquid stool in the ascending colon and minimal solid stool in the descending colon, all suggestive of an ileus. The etiology of this is not readily apparent. I do see a patent SMA and SMV. Shalom Espinal MD FACR Physical Exam HEENT: Normocephalic; atraumatic CHEST: Resp. even/unlabored on n/c. Course breath sounds, 02 sat 100%. CARDIAC: Tachycardia ABDOMEN: Soft, nondistended, nontender; no hepatosplenomegaly; bowel sounds hypoactive. GJ tube, g to LIWS with dark brownish colored gastric secretions. EXTREMITIES: Contracted MARIONETTE PERFORMER: Nonverbal Assessment and Plan Plan ASSESSMENT: - Coffee ground emesis. Pt had this on arrival to floor, not currently having. HH stable 10.3/33.2. PPI. Attempted to call Edita martini to discuss procedure, risks, benefits- no answer. - Colonic Ileus with n/v and constipation. Abdomen/Pelvis CT (04/28/17)----> 1. Abnormal lungs suggesting either failure or infiltrate. 2. Tube that may be a jejunostomy tube in the stomach. There is moderate gaseous distention of distal small bowel and colon with liquid stool in the ascending colon and minimal solid stool in the descending colon, all suggestive of an ileus. The etiology of this is not readily apparent. I do see a patent SMA and SMV. Abdomen X-Ray (04/29/17)----> Moderate amount air throughout the colon. G-tube in good position. (+) BM. Add Bethanechol ( reglan has multiple interactions listed with psych meds), Miralax daily. - Leukocytosis/Bacteremia. BCX (04/28) with staph coagulase negative, staphylococcus epidermidis. Rpt culture with no growth one day. Vancomycin - SIM with electrolyte abnormalities, per CCM - Hx cerebral palsy, development delay, sz disorder PLAN: - Plan for EGD in am - Obtain consents - NPO - Add Bethanechol 12.5 per G tube (reglan has multiple interactions listed with psych meds) - Add Miralax 17gram per G tube daily - Cont PPI - Monitor HH, transfuse as needed - Notify GI of active bleeding - Supportive care - Further recommendations to follow based on results of above. - Pt seen and examined by Dr. Watts and myself and this note is written on her behalf Tabatha Garza Apr 30, 2017 16:13
[2017-04-30] MEDS: POLYETHYLENE GLYCOL 17 GM PKG DOBHOFF SCH (17:00)
[2017-04-30] MEDS ORDERED: IOHEXOL 350 MG/ML 50 ML BTL (for RAD DIAG) G-TUBE ONE (17:27)
--- NOTE | 2017-04-30 17:34 | RADRPT ---
EXAM DATE/TIME: 04/30/2017 16:39 [place] COMPARISON: CHANGE OF GJ-TUBE CATHETER, November 21, 2016, 15:25. INDICATIONS : Patient with history of cerebral palsy in need of GJ tube exchange. MEDICAL HISTORY : GERD, Cerebral palsy, Gastroparesis, Sepsis, Seizures, Hypoglycemia, HTN, Dysphagia, Respiratory fail ure, Scoliosis, Cholelithiasis SURGICAL HISTORY : Tracheostomy, GJ tube placement, Lebron fundoplication, Lysis of the adhesions ENCOUNTER: Subsequent ACUITY: >1 year PAIN SCORE: 0/10 FLUORO TIME: 5.4 minutes IMAGE SERIES: 0 CONTRAST: 20 cc Omnipaque (iohexol) 350 DEVICE(S): 1.) 22 Persian Transgastric tube PROCEDURE : 1. Fluoroscopically guided gastrojejunostomy tube exchange. 2. Conscious sedation with continuous EKG and oximetry monitoring. The risks, benefits and alternatives to the procedure were explained and verbal and written consent w as obtained. The site was prepped in sterile fashion. Full sterile technique was used, including ca p, mask, sterile gloves and gown and a large sterile sheet. Hand hygiene and 2% chlorhexidine and/or betadine/alcohol prep was utilized per protocol for cutaneous antisepsis. The skin and subcutaneous tissues were infiltrated with local anesthetic solution. With fluoroscopic guidance a guidewire was passed through the previous gastrojejunostomy tube and a f resh tube was placed over the guidewire. The balloon was inflated with appropriate volume of saline. Injection of positive contrast demonstrates good position of the gastric and jejunal lumens of the tube. Conscious sedation was performed with the prescribed dosages and duration as above in the presence of an independent trained radiology nurse to assist in the monitoring of the patient. EKG and oximetry remained stable throughout the procedure. The patient tolerated the procedure well and there were n o complications. The patient was sent to post anesthesia recovery in stable condition. CONCLUSION: Uncomplicated gastrojejunostomy tube exchange as above. Jose Allison MD on April 30, 2017 at 17:32 Board Certified Radiologist. This report was verified electronically.
[2017-04-30] MEDS: BETHANECHOL CHL 25 MG TAB PEG SCH (21:11)
[2017-05-01] VITALS (21 sets, daily range): BP systolic 92–143; BP diastolic 61–75; PULSE 99–124; RESP 20–54; TEMP 95.5–98.6; O2SAT 96–100
[2017-05-01] MEDS: PIPERACIL-TAZO 3.375 GM PREMIX 50 ML IV SCH ×4 (01:56→22:15)
[2017-05-01] MEDS: INSULIN NovoLIN REGULAR SUPPLEMENTAL SCALE SQ SCH ×6 (01:56→23:00)
[2017-05-01] MEDS: RESP: ALBUTEROL 2.5 MG/IPRATROPIUM 0.5 MG NEB (SCH) NEB ×4 (03:31→20:11)
[2017-05-01 03:48] LABS: AUTOMATED NEUTROPHIL # 8.8 TH/MM3 (1.8-7.7); BASOPHIL % 0.4 % (0.0-2.0); EOSINOPHIL # 0.2 TH/MM3 (0-0.4); EOSINOPHIL % 1.4 % (0.0-4.0); HEMATOCRIT 33.2 % (39.0-51.0); HEMO FLAGS DIFF FINAL; LYMPH % 11.3 % (9.0-44.0); LYMPHOCYTE # 1.2 TH/MM3 (1.0-4.8); MEAN CELL VOLUME 78.8 FL (80.0-100.0); MEAN CORPUSCULAR HEMOGLOBIN 25.9 PG (27.0-34.0); MEAN CORPUSCULAR HGB CONC 32.8 % (32.0-36.0); MONO % 5.1 % (0.0-8.0); NEUT % 81.8 % (16.0-70.0); PLATELET COUNT 263 TH/MM3 (150-450); RED BLOOD COUNT 4.21 MIL/MM3 (4.50-5.90); RED CELL DISTRIBUTION WIDTH 19.1 % (11.6-17.2); WHITE BLOOD COUNT 10.8 TH/MM3 (4.0-11.0)
[2017-05-01] MEDS: CHLORHEXIDINE GLUCONATE 2 % 1 PACK (2 CLOTHS)(taper/protocol) TOPICAL SCH (04:00)
[2017-05-01 04:15] LABS: BICARBONATE 23.1 MEQ/L (21.0-32.0); MAGNESIUM 1.7 MG/DL (1.5-2.5); POTASSIUM 4.6 MEQ/L (3.5-5.1)
[2017-05-01] MEDS: METOPROLOL TARTRATE 25 MG TAB PO SCH ×2 (05:50→18:56)
[2017-05-01] MEDS: BETHANECHOL CHL 25 MG TAB PEG SCH ×3 (05:51→20:52)
[2017-05-01] MEDS: AZITHROMYCIN 250 MG TAB G-TUBE SCH (08:22)
[2017-05-01] MEDS: HEPARIN SODIUM - SQ 10,000 UNITS/ML VIAL SQ SCH ×2 (08:22→20:36)
[2017-05-01] MEDS: POLYETHYLENE GLYCOL 17 GM PKG DOBHOFF SCH (08:22)
[2017-05-01] MEDS: ASPIRIN EC 81 MG TABEC PO SCH (08:23)
[2017-05-01] MEDS: TOPIRAMATE 100 MG TAB PO SCH ×2 (08:23→22:16)
[2017-05-01] MEDS: PHENYTOIN SUSP 100 MG/4 ML CUP PO SCH ×2 (08:23→20:36)
[2017-05-01] MEDS: SODIUM CHLORIDE 0.9% FLUSH 10 ML FLUSH IV FLUSH SCH ×2 (08:23→22:16)
[2017-05-01] MEDS: FLUDROCORTISONE ACETATE 0.1 MG TAB PO SCH (09:02)
[2017-05-01] MEDS: VANCOMYCIN INJ 650 MG in SODIUM CHLOR 0.9% 250 ML INJ 250 ML IV SCH (09:02)
[2017-05-01] MEDS: LORazepam 2 MG/ML VIAL IV PRN (09:46)
--- NOTE | 2017-05-01 10:14 | HHI.FPPN ---
Subjective Remarks IN ICU D/W RN ON IVF STABLE MENTATION TELE REVIEWED LABS REVIEWED DIRECTOR OF MEDICAL EDUCATION REPORTS REVIEWED Objective Vitals Vital Signs Date Time Temp Pulse Resp B/P Pulse Ox O2 Delivery O2 Flow Rate FiO2 05/01/17 09:03 124 41 133/67 96 05/01/17 08:47 99 Nasal Cannula 3.00 05/01/17 08:30 112 37 100 05/01/17 08:00 98.6 117 37 99/70 100 05/01/17 08:00 112 05/01/17 07:30 116 51 100 05/01/17 07:00 117 37 100/67 100 05/01/17 06:30 119 48 100 05/01/17 06:00 118 43 96/73 97 05/01/17 05:50 123 54 98/67 96 05/01/17 05:30 120 40 96 05/01/17 05:00 120 41 96/67 97 05/01/17 04:30 115 42 98 05/01/17 04:00 97.1 115 22 92/61 98 05/01/17 00:00 97.2 101 22 105/68 100 04/30/17 21:26 100 Nasal Cannula 3.00 04/30/17 20:00 97.0 91 30 104/75 100 04/30/17 16:00 97.5 88 24 102/71 100 04/30/17 12:00 97.3 91 38 132/76 99 I/O 04/30/17 04/30/17 04/30/17 05/01/17 05/01/17 05/01/17 07:00 15:00 23:00 07:00 15:00 23:00 Intake Total 417 ml 1139 ml 535 ml 436 ml Output Total 750 ml 2000 ml 800 ml 300 ml Balance -333 ml -861 ml -265 ml 136 ml Intake Oral 0 ml 0 ml 0 ml 0 ml IV Total 357 ml 1109 ml 475 ml 376 ml Other 60 ml 30 ml 60 ml 60 ml Output Urine Total 750 ml 2000 ml 800 ml 300 ml # Bowel Movements 1 0 0 0 Result Diagram: 05/01/17 0259 05/01/17 0259 Imaging Last 72 hours Impressions Tube Change 04/30/17 0000 Signed Impressions: Service Date/Time: Sunday, April 30, 2017 16:39 - CONCLUSION: Uncomplicated gastrojejunostomy tube exchange as above. Jose Allison MD Chest X-Ray 04/30/17 0000 Signed Impressions: Service Date/Time: Sunday, April 30, 2017 08:03 - CONCLUSION: Stable chest x-ray with right lower lung zone airspace consolidation and left lower lobe consolidation versus atelectasis. Mg Darling MD Abdomen X-Ray 04/29/17 0600 Signed Impressions: Service Date/Time: Saturday, April 29, 2017 03:22 - CONCLUSION: Moderate amount air throughout the colon. G-tube in good position Devin Hassan MD Chest X-Ray 04/29/17 0000 Signed Impressions: Service Date/Time: Saturday, April 29, 2017 12:22 - CONCLUSION: 1. Perihilar and bibasilar patchiness consistent with pneumonia versus moderate pulmonary edema. Clinical correlation is recommended. 2. Scoliosis of the thoracic spine. Dharmesh Grullon MD Objective Remarks GENERAL: SKIN: Warm and dry. HEAD: Atraumatic. Normocephalic. EYES: Pupils equal and round. No scleral icterus. No injection or drainage. ENT: No nasal bleeding or discharge. Mucous membranes pink and moist. NECK: Trachea midline. No JVD. CARDIOVASCULAR: Regular rate and rhythm. RESPIRATORY: No accessory muscle use. Clear to auscultation. Breath sounds equal bilaterally. GASTROINTESTINAL: Abdomen soft, non-tender, nondistended. Hepatic and splenic margins not palpable. MUSCULOSKELETAL: Extremities without clubbing, cyanosis, or edema. No obvious deformities. NEUROLOGICAL: Awake and alert. No obvious cranial nerve deficits. Motor grossly within normal limits. 1 out of 5 muscle strength in the arms and legs. PSYCHIATRIC: lethargic, encephalopathic Medications and IVs Current Medications Medications (Trade) Dose Ordered Sig/Carlotta Route Start Time Stop Time Status Last Admin (NS Flush) 2 ml UNSCH PRN IV FLUSH 04/28/17 08:30 (NS Flush) 2 ml BID IV FLUSH 04/28/17 09:00 05/01/17 08:23 (Zofran Inj) 4 mg Q6H PRN IVP 04/28/17 08:30 04/28/17 10:15 (Heparin Inj) 5,000 units Q12H SQ 04/28/17 08:30 05/01/17 08:22 (Narcan Inj) 0.4 mg UNSCH PRN IV 04/28/17 08:30 (Milk Of Magnesia Liq) 30 ml Q12H PRN PO 04/28/17 08:30 (Senokot) 17.2 mg Q12H PRN PO 04/28/17 08:30 (Dulcolax Supp) 10 mg DAILY PRN RECTAL 04/28/17 08:30 (Lactulose Liq) 30 ml DAILY PRN PO 04/28/17 08:30 (Zithromax) 250 mg DAILY G-TUBE 04/28/17 09:00 05/01/17 08:22 (Xanax) 0.5 mg Q8H PRN PO 04/28/17 10:15 04/28/17 22:05 (Ecotrin Ec) 81 mg DAILY PO 04/29/17 09:00 05/01/17 08:23 (Florinef) 0.2 mg DAILY PO 04/29/17 09:00 05/01/17 09:02 (Dilantin Liq) 100 mg BID PO 04/28/17 21:00 05/01/17 08:23 (Topamax) 100 mg BID PO 04/28/17 21:00 05/01/17 08:23 (Desyrel) 25 mg DAILY PRN PO 04/28/17 10:15 Miscellaneous 1 ea 1 ea UNSCH PRN OTHER 04/28/17 10:30 (Zosyn 3.375 Gm Premix) 50 ml @ 100 mls/hr Q6H IV 04/28/17 15:00 05/01/17 08:22 (D50w (Vial) Inj) 50 ml UNSCH PRN IV 04/28/17 14:15 (Glucagon Inj) 1 mg UNSCH PRN OTHER 04/28/17 14:15 (NovoLIN R SUPPLEMENTAL SCALE) 1 Q4H SQ 04/28/17 15:00 (Protonix Inj) 40 mg Q24H IV PUSH 04/28/17 16:00 04/30/17 14:54 Miscellaneous Information Patient in critical care unit? Ass... Q361D .XX 04/28/17 21:15 (Chlorhexidine 2% Cloth) 3 pack DAILY@04 TOPICAL 04/29/17 04:00 05/03/17 04:01 05/01/17 04:00 (Chlorhexidine 2% Cloth) 3 pack UNSCH PRN TOPICAL 04/28/17 21:15 05/03/17 21:13 (Haldol Inj) 5 mg Q4H PRN IV 04/28/17 23:30 04/29/17 21:59 Lorazepam 0.5 mg 0.5 mg Q4H PRN IV 04/28/17 23:45 05/01/17 09:46 Pharmacy Profile Note 0 ml @ 0 mls/hr UNSCH OTHER 04/29/17 09:15 Potassium Chloride 100 ml @ 50 mls/hr Q2H PRN IV 04/29/17 09:30 (KCl 20 Meq Premix Inj) 100 ml @ 50 mls/hr Q2H PRN IV 04/29/17 09:30 04/30/17 13:34 Potassium Bicarb/ Potassium Chloride 50 meq 50 meq UNSCH PRN PO 04/29/17 09:30 04/29/17 10:13 Potassium Chloride 100 ml @ 25 mls/hr UNSCH PRN IV 04/29/17 09:30 Potassium Chloride 100 ml @ 50 mls/hr Q2H PRN IV 04/29/17 09:30 (Magnesium Sulfate Inj/NS Inj) 100 ml @ 50 mls/hr UNSCH PRN IV 04/29/17 09:30 Magnesium Oxide 800 mg 800 mg UNSCH PRN PO 04/29/17 09:30 (Magnesium Sulfate Inj/NS Inj) 100 ml @ 50 mls/hr UNSCH PRN IV 04/29/17 09:30 Potassium Phosphate 2000 mg 2,000 mg Q4H PRN PO 04/29/17 09:30 (Sodium Phosphate Inj/NS 250 ml Inj) 250 ml @ 42 mls/hr UNSCH PRN IV 04/29/17 09:30 Potassium Phosphate 2000 mg 2,000 mg UNSCH PRN PO/TUBE 04/29/17 09:30 Potassium Phosphate 30 mmol/ Sodium Chloride 260 ml @ 42 mls/hr UNSCH PRN IV 04/29/17 09:30 Dextrose/Sodium Chloride 1,000 ml @ 50 mls/hr Q20H IV 04/29/17 10:00 04/30/17 22:50 (Vancomycin Inj/ NS 250 ml Inj) 256.5 ml @ 256.5 mls/ hr Q24H IV 04/30/17 10:00 05/01/17 09:02 Miscellaneous Information SPECIFIC LAB TO BE TIMOTEO... 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 IR consulted repositioned J-tube Cerebral palsy. SZ PLAN: TRANSFER OUT OF ICU Dilantin 100 mg BID. Topamax 100 mg BID NEBS, and aspiration precautions. Lactic acid level Florinef 0.2 mg daily. Aspirin 81 mg daily. D5 ivf Protonix 40 mg daily for GI prophylaxis. GI is following IV abx SSI Protonix 40 mg daily. DVT prophylaxis with SCDs. TELE Andrew St MD May 01, 2017 10:[address] MD May 01, 2017 10:14
--- NOTE | 2017-05-01 12:11 | HHI.CCPN ---
Subjective Remarks/Hospital Course The patient is a 36-year-old male with past medical history of seizure disorder , cerebral palsy, previous G-J tube placement for nutritional support who presented to the [facility] Emergency Department by his mom for intractable nausea and vomiting. No history of any fever or constitutional symptoms. In addition, no history of any abdominal pain. On arrival to the emergency room, he was tachycardiac with heart rate of 107-112 and had a blood pressure of 116/64. His laboratory data showed acute kidney injury with creatinine level 1.89, lactic acidemia with a lactic acid level of 4.1. In addition, the patient was found to have leukocytosis with a WBC of 20. Chest x- ray in the emergency room showed no acute cardiopulmonary disease. The patient underwent a KUB of the abdomen which showed G-tube in good position, moderate air throughout the colon. He subsequently underwent CT scan of the abdomen and pelvis which showed jejunostomy tube in the stomach, moderate gaseous distension of the distal small bowel and colon and findings suggestive of ileus. In the emergency room, he was given 2 liters of crystalloids, Zosyn, Zofran and Cerebyx. His Dilantin level measured at 0.6. The patient was initially admitted to [facility] under the hospitalist service. However critical care medicine was consulted by Dr. Rojas for possible aspiration. When seen, the patient is on room air oxygen with a saturation of 94% with blood pressure 113/ 72 and a pulse of 109. IR was consulted by CHE[facility] for repositioning of the J- tube as it is coiled in the stomach. 04/29 Patient was given 2L NS boluses overnight for tachycardia. Afebrile. WBC is trending down. 04/30 Patient was placed on BIPAP last night for desaturation. WBC is trending down, afebrile. 05/01 Patient s/p G-J tune exchange by IR yesterday. Afebrile, tachycardic, for EGD today. Objective Vital Signs Date Time Temp Pulse Resp B/P Pulse Ox O2 Delivery O2 Flow Rate FiO2 05/01/17 09:03 124 41 133/67 96 05/01/17 08:47 Nasal Cannula 3.00 05/01/17 08:00 98.6 04/30/17 04:53 35 Intake and Output 04/30/17 04/30/17 04/30/17 07:59 15:59 23:59 Intake Total 417 ml 1139 ml 535 ml Output Total 750 ml 2000 ml 800 ml Balance -333 ml -861 ml -265 ml Result Diagram: 05/01/17 0259 05/01/17 0259 Other Results Laboratory Tests Test 05/01/17 02:59 White Blood Count 10.8 TH/MM3 Red Blood Count 4.21 MIL/MM3 Hemoglobin 10.9 GM/DL Hematocrit 33.2 % Mean Corpuscular Volume 78.8 FL Mean Corpuscular Hemoglobin 25.9 PG Mean Corpuscular Hemoglobin 32.8 % Concent Red Cell Distribution Width 19.1 % Platelet Count 263 TH/MM3 Mean Platelet Volume 8.6 FL Neutrophils (%) (Auto) 81.8 % Lymphocytes (%) (Auto) 11.3 % Monocytes (%) (Auto) 5.1 % Eosinophils (%) (Auto) 1.4 % Basophils (%) (Auto) 0.4 % Neutrophils # (Auto) 8.8 TH/MM3 Lymphocytes # (Auto) 1.2 TH/MM3 Monocytes # (Auto) 0.6 TH/MM3 Eosinophils # (Auto) 0.2 TH/MM3 Basophils # (Auto) 0.0 TH/MM3 CBC Comment DIFF FINAL Differential Comment Hematology Comments Sodium Level 141 MEQ/L Potassium Level 4.6 MEQ/L Chloride Level 106 MEQ/L Carbon Dioxide Level 23.1 MEQ/L Anion Gap 12 MEQ/L Blood Urea Nitrogen 14 MG/DL Creatinine 1.19 MG/DL Estimat Glomerular Filtration 85 ML/MIN Rate Random Glucose 75 MG/DL Calcium Level 8.6 MG/DL Phosphorus Level 2.1 MG/DL Magnesium Level 1.7 MG/DL Imaging Last Impressions Tube Change 04/30/17 0000 Signed Impressions: Service Date/Time: Sunday, April 30, 2017 16:39 - CONCLUSION: Uncomplicated gastrojejunostomy tube exchange as above. Jose Allison MD Chest X-Ray 04/30/17 0000 Signed Impressions: Service Date/Time: Sunday, April 30, 2017 08:03 - CONCLUSION: Stable chest x-ray with right lower lung zone airspace consolidation and left lower lobe consolidation versus atelectasis. Mg Darling MD Abdomen X-Ray 04/29/17 0600 Signed Impressions: Service Date/Time: Saturday, April 29, 2017 03:22 - CONCLUSION: Moderate amount air throughout the colon. G-tube in good position Devin Hassan MD Abdomen/Pelvis CT 04/28/17 0600 Signed Impressions: Service Date/Time: Friday, April 28, 2017 06:24 - CONCLUSION: 1. Abnormal lungs suggesting either failure or infiltrate. 2. Tube that may be a jejunostomy tube in the stomach. There is moderate gaseous distention of distal small bowel and colon with liquid stool in the ascending colon and minimal solid stool in the descending colon, all suggestive of an ileus. The etiology of this is not readily apparent. I do see a patent SMA and SMV. Shalom Espinal MD FACR Objective Remarks GENERAL: Patient is 36 yo lying in bed in NAD SKIN: Warm and dry. HEAD: Normocephalic. EYES: No scleral icterus. No injection or drainage. NECK: Supple, trachea midline. No JVD or lymphadenopathy. CARDIOVASCULAR:Tachy without murmurs, gallops, or rubs. RESPIRATORY: Breath sounds equal bilaterally. No accessory muscle use. GASTROINTESTINAL: Abdomen soft, non-tender, nondistended. MUSCULOSKELETAL: No cyanosis, or edema. Neuro: Contracted, non-verbal. A/P Assessment and Plan 1. Resp Insuff 2. Gram positive bacteremia 3. Leukocytosis. 4. Lactic acidemia. 5. Acute kidney injury.- resolved 6. Ileus. 7. Malfunctioning J tube. 8. History of cerebral palsy. 9. History of seizures. Plan Neuro: Monitor neuro status closely and avoid any sedatives. Continue with antiseizure meds. on Dilantin 100 mg BID. Dilantin level is 0.6. On Topamax 100 mg BID Pulm: Continue with Oxygen to maintain sats above 92%. Bronchodilators and aspiration precautions. NIPPV for resp distress CV:Monitor HR and BP keep MAP>65mmHg. On Lopressor 25 mg BID Lactic acid cleared 1.6 Continue with Florinef 0.2 mg daily. Aspirin 81 mg daily. : Monitor renal function, I/O's and avoid nephrotoxins. D51/2NS@50ml/hr, will need Phos replacement today GI: On Protonix 40 mg daily for GI prophylaxis. GI is following s/p G-J tube exchange by IR 04/30, for EGD today ID: Continue with abx( azithromycin, Zosyn, Vanco) WBC is trending down. Monitor for signs of infection(fever and WBCs). Check BC x 2 sets today 04/28 BC 2/4 sets: Staph Epi, coag negative staph, urine cx: No growth 04/29 BC: GPC 2 /4 bottles Heme: Monitor CBC Endo: SSI with Accu-Chek for glycemic control GI prophylaxis with Protonix 40 mg daily. DVT prophylaxis with SCDs. Will sign off Level 3 Anjelica Kwon MD May 01, 2017 12:11
[2017-05-01] MEDS ORDERED: PROPOFOL 200 MG/20 ML AMP IV ONE (13:50)
--- NOTE | 2017-05-01 14:03 | GIPROC ---
[facility] [address] [facility]. [facility] [place], [address] EGD PROCEDURE REPORT EXAM DATE: 05/01/2017 PATIENT NAME: Remigio Thakur MR #: [id number] BIRTHDATE: 1980 ATTENDING: Shayla Watts MD ORDER #: [id number] [employer] ATTENDANT: Tawanda Brown and Armida Almaraz STATUS: inpatient INDICATIONS: The patient is a 36 yr old male here for an EGD due to hematemesis PROCEDURE PERFORMED: EGD w/ biopsy MEDICATIONS: None and Per Anesthesia. TOPICAL ANESTHETIC: none CONSENT: The patient understands the risks and benefits of the procedure and understands that these risks include, but are not limited to: sedation, allergic reaction, infection, perforation and/or bleeding. Alternative means of evaluation and treatment include, among others: physical exam, x-rays, and/or surgical intervention. The patient elects to proceed with this endoscopic procedure. medical equipment was checked for proper function. Hand hygiene and appropriate measures for infection prevention was taken. After the risks, benefits and alternatives of the procedure were thoroughly explained, Informed consent was verified, confirmed and timeout was successfully executed by the treatment team. The patient was anesthetized with topical anesthesia and the Pentax EG-[id number] endoscope was introduced through the mouth and advanced to the second portion of the duodenum. Retroflexed views revealed a hiatal hernia The gastroscope was then slowly withdrawn and removed. G/j tube in place hiatal hernia dilated esophagus esophagitis distal esophagus-biopsy some gastric juice sitting in esophagus / stomach-suctioned suggesting poor motility. ADVERSE EVENTS: There were no complications. IMPRESSIONS: 1. G/j tube in place hiatal hernia dilated esophagus esophagitis distal esophagus-biopsy some gastric juice sitting in esophagus / stomach-suctioned suggesting poor motility 2. Retroflexed views revealed a hiatal hernia RECOMMENDATIONS: 1. Await biopsy results. Biopsy results will not be ready for 7-10 days. If you don't hear from us in two weeks, call our office for biopsy results. 2. Anti-reflux regimen 3. Start PPI 4. Avoid NSAIDS 5. Start tf at 20 cc/hrs than advance to the goal PATIENT CONDITION: stable DISPOSITION: Inpatient REPEAT EXAM: EGD pending biopsy results Shayla Watts MD eSigned: Shayla Watts MD 05/01/2017 2:02 PM cc: PATIENT NAME: Remigio Thakur MR#: [id number]
[2017-05-01] MEDS: PANTOPRAZOLE SODIUM 40 MG VIAL IV PUSH SCH (15:56)
[2017-05-01] MEDS: ALPRAZolam 0.5 MG TAB PO PRN (18:56)
[2017-05-01] MEDS: DEXT 5%-NACL 0.45% 1000 ML INJ 1,000 ML IV SCH (19:08)
[2017-05-02] VITALS (10 sets, daily range): BP systolic 105–124; BP diastolic 58–71; PULSE 88–116; RESP 12–56; TEMP 96–97.6; O2SAT 94–100
[2017-05-02] MEDS: INSULIN NovoLIN REGULAR SUPPLEMENTAL SCALE SQ SCH ×5 (03:00→23:00)
[2017-05-02] MEDS: PIPERACIL-TAZO 3.375 GM PREMIX 50 ML IV SCH ×3 (03:06→20:47)
[2017-05-02] MEDS: CHLORHEXIDINE GLUCONATE 2 % 1 PACK (2 CLOTHS)(taper/protocol) TOPICAL SCH (03:52)
[2017-05-02] MEDS: RESP: ALBUTEROL 2.5 MG/IPRATROPIUM 0.5 MG NEB (SCH) NEB (04:00)
[2017-05-02] MEDS: METOPROLOL TARTRATE 25 MG TAB PO SCH ×2 (05:47→18:20)
[2017-05-02] MEDS: BETHANECHOL CHL 25 MG TAB PEG SCH ×3 (05:47→22:56)
[2017-05-02] MEDS ORDERED: MIDAZOLAM HCL 5 MG/ML VIAL (1 ML) ONE (07:56)
[2017-05-02] MEDS ORDERED: ROCURONIUM INJ 50 MG/5 ML VIAL ONE (08:19)
--- NOTE | 2017-05-02 08:23 | HHI.GIFU ---
Subjective Remarks Pt vomiting large amount of brown emesis mixed with red blood- 700cc overnight. More congested and mildly labored breathing. Pt being transferred to intensive care. (Tabatha Garza) Objective Vitals I&O Vital Signs Date Time Temp Pulse Resp B/P Pulse Ox O2 Delivery O2 Flow Rate FiO2 05/02/17 04:00 96.5 116 56 105/68 97 05/02/17 00:00 96.7 116 111/68 96 05/01/17 20:30 110 05/01/17 20:13 99 Nasal Cannula 2.00 05/01/17 20:00 97.0 109 122/75 99 05/01/17 18:00 95.5 112 52 143/69 97 05/01/17 16:00 103 05/01/17 16:00 98.0 103 26 104/68 98 05/01/17 14:34 98.0 99 24 113/70 100 05/01/17 14:25 107 18 92/64 93 05/01/17 14:15 88 18 88/63 93 05/01/17 14:05 97.6 105 18 91/63 93 05/01/17 13:54 97.6 108 18 89/63 93 05/01/17 11:58 98.6 112 36 133/67 96 05/01/17 09:03 124 41 133/67 96 05/01/17 08:47 99 Nasal Cannula 3.00 05/01/17 08:30 112 37 100 I/O 05/01/17 05/01/17 05/01/17 05/02/17 05/02/17 05/02/17 07:00 15:00 23:00 07:00 15:00 23:00 Intake Total 436 ml 813 ml 184 ml 396 ml Output Total 300 ml 350 ml 200 ml Balance 136 ml 813 ml -166 ml 196 ml Intake Oral 0 ml IV Total 376 ml 763 ml 147 ml 396 ml Tube Feeding 37 ml Other 60 ml 50 ml Output Urine Total 300 ml 350 ml 200 ml # Bowel Movements 0 1 Laboratory Date/Time Procedure Status Source Growth 05/01/17 15:11 Aerobic Blood Culture Received Blood Peripheral Pending 05/01/17 15:11 Anaerobic Blood Culture Received Blood Peripheral Pending 04/29/17 15:06 Aerobic Blood Culture - Preliminary Resulted Blood Peripheral Staph Sp Coagulase Negative 04/29/17 15:06 Anaerobic Blood Culture - Final Resulted Blood Peripheral ONLY AEROBIC CULTURE ORDERED 04/28/17 11:07 Urine Culture - Final Complete Urine Catheterized Urine NO GROWTH IN 48 HOURS. 04/28/17 08:44 Aerobic Blood Culture - Final Complete Blood Peripheral Staph Sp Coagulase Negative 04/28/17 08:44 Anaerobic Blood Culture - Final Complete Staph Sp Coagulase Negative Imaging Last Impressions Tube Change 04/30/17 0000 Signed Impressions: Service Date/Time: Sunday, April 30, 2017 16:39 - CONCLUSION: Uncomplicated gastrojejunostomy tube exchange as above. Jose Allison MD Chest X-Ray 04/30/17 0000 Signed Impressions: Service Date/Time: Sunday, April 30, 2017 08:03 - CONCLUSION: Stable chest x-ray with right lower lung zone airspace consolidation and left lower lobe consolidation versus atelectasis. Mg Darling MD Abdomen X-Ray 04/29/17 0600 Signed Impressions: Service Date/Time: Saturday, April 29, 2017 03:22 - CONCLUSION: Moderate amount air throughout the colon. G-tube in good position Devin Hassan MD Abdomen/Pelvis CT 04/28/17 0600 Signed Impressions: Service Date/Time: Friday, April 28, 2017 06:24 - CONCLUSION: 1. Abnormal lungs suggesting either failure or infiltrate. 2. Tube that may be a jejunostomy tube in the stomach. There is moderate gaseous distention of distal small bowel and colon with liquid stool in the ascending colon and minimal solid stool in the descending colon, all suggestive of an ileus. The etiology of this is not readily apparent. I do see a patent SMA and SMV. Shalom Espinal MD FACR Physical Exam HEENT: Normocephalic; atraumatic CHEST: Resp. mildly labored, congested, course breath sounds, 02 sat 97% on room air CARDIAC: Tachycardic- 113 ABDOMEN: Soft, mildly distended, no hepatosplenomegaly; bowel sounds hypoactive. GJ tube, g with minimal bilious secretions suctioned. Vomiting reddish brown emesis. EXTREMITIES: Contracted RING CONDUCTOR: Nonverbal (Tabatha GarzaP) Assessment and Plan Plan ASSESSMENT: - Upper GIB. S/P EGD (05/02/17)-----> 1. G/j tube in place, hiatal hernia, dilated esophagus, esophagitis distal esophagus-biopsy, some gastric juice sitting in esophagus / stomach-suctioned suggesting poor motility 2. Retroflexed views revealed a hiatal hernia. Pt started vomiting reddish brown secretions. G tube with bilious material suctioned from stomach. However, he continues to vomit reddish brown tinged gastric secretions. NG was placed in esophagus and immediately suctioned large amount of reddish brown secretions. Stat labs pending. Tx to [facility], will be intubated for airway protection and plan will be for repeat EGD this am. - Colonic Ileus with n/v and constipation. Abdomen/Pelvis CT (04/28/17)----> 1. Abnormal lungs suggesting either failure or infiltrate. 2. Tube that may be a jejunostomy tube in the stomach. There is moderate gaseous distention of distal small bowel and colon with liquid stool in the ascending colon and minimal solid stool in the descending colon, all suggestive of an ileus. The etiology of this is not readily apparent. I do see a patent SMA and SMV. Abdomen X-Ray (04/29/17)----> Moderate amount air throughout the colon. G-tube in good position. (+) BM. Bethanechol ( reglan has multiple interactions listed with psych meds), Miralax daily. - Leukocytosis/Bacteremia. BCX (04/28) with staph coagulase negative, staphylococcus epidermidis. Rpt culture (04/29/17) gram positive coci, staph coag neg. BCx from (05/01) pending. Vancomycin - SIM with electrolyte abnormalities, per [facility] - Hx cerebral palsy, development delay, sz disorder PLAN: - Tx to Intensive Care - Consult log inspector- Spoke with Dr. Dove - Intubate for airway protection - Plan for EGD later this am - Obtain consents - NPO - NGT in esophagus to LIWS- do not advance for now - G tube to LIWS - Add Protonix Gtt - Add EES - Bethanechol - Miralax - Stat CXR - Stat CBC, BMP, PT, APTT - Monitor HH, transfuse as needed - Notify GI of active bleeding - Supportive care - Further recommendations to follow based on results of above. - Pt seen and examined by Dr. Watts and myself and this note is written on her behalf (Tabatha Garza) Physician Comments seen, examined agree with above (Shayla Watts MD) Tabatha Garza May 02, 2017 08:23 Shayla Watts MD May 02, 2017 11:14
[2017-05-02] MEDS: HEPARIN SODIUM - SQ 10,000 UNITS/ML VIAL SQ SCH ×2 (08:30→20:51)
--- NOTE | 2017-05-02 08:44 | HHI.CCPN ---
Subjective Remarks/Hospital Course The patient is a 36-year-old male with past medical history of seizure disorder , cerebral palsy, previous G-J tube placement for nutritional support who presented to the [facility] Emergency Department by his mom for intractable nausea and vomiting. No history of any fever or constitutional symptoms. In addition, no history of any abdominal pain. On arrival to the emergency room, he was tachycardiac with heart rate of 107-112 and had a blood pressure of 116/64. His laboratory data showed acute kidney injury with creatinine level 1.89, lactic acidemia with a lactic acid level of 4.1. In addition, the patient was found to have leukocytosis with a WBC of 20. Chest x- ray in the emergency room showed no acute cardiopulmonary disease. The patient underwent a KUB of the abdomen which showed G-tube in good position, moderate air throughout the colon. He subsequently underwent CT scan of the abdomen and pelvis which showed jejunostomy tube in the stomach, moderate gaseous distension of the distal small bowel and colon and findings suggestive of ileus. In the emergency room, he was given 2 liters of crystalloids, Zosyn, Zofran and Cerebyx. His Dilantin level measured at 0.6. The patient was initially admitted to [facility] under the hospitalist service. However critical care medicine was consulted by Dr. Rojas for possible aspiration. When seen, the patient is on room air oxygen with a saturation of 94% with blood pressure 113/ 72 and a pulse of 109. IR was consulted by CHEVY for repositioning of the J- tube as it is coiled in the stomach. 04/29 Patient was given 2L NS boluses overnight for tachycardia. Afebrile. WBC is trending down. 04/30 Patient was placed on BIPAP last night for desaturation. WBC is trending down, afebrile. 05/01 Patient s/p G-J tune exchange by IR yesterday. Afebrile, tachycardic, for EGD today. 05/02: New upper GI bleeding and preceding aspiration pneumonia. Requires intubation for airway protection. No iv acces, will use IM versed. Objective Vital Signs Date Time Temp Pulse Resp B/P Pulse Ox O2 Delivery O2 Flow Rate FiO2 05/02/17 04:00 96.5 116 56 105/68 97 05/01/17 20:13 Nasal Cannula 2.00 04/30/17 04:53 35 Intake and Output 05/01/17 05/01/17 05/02/17 08:00 16:00 00:00 Intake Total 436 ml 813 ml 184 ml Output Total 300 ml 350 ml Balance 136 ml 813 ml -166 ml Result Diagram: 05/01/17 0259 05/01/17 0259 Imaging Last Impressions Tube Change 04/30/17 0000 Signed Impressions: Service Date/Time: Sunday, April 30, 2017 16:39 - CONCLUSION: Uncomplicated gastrojejunostomy tube exchange as above. Jose Allison MD Chest X-Ray 04/30/17 0000 Signed Impressions: Service Date/Time: Sunday, April 30, 2017 08:03 - CONCLUSION: Stable chest x-ray with right lower lung zone airspace consolidation and left lower lobe consolidation versus atelectasis. Mg Darling MD Abdomen X-Ray 04/29/17 0600 Signed Impressions: Service Date/Time: Saturday, April 29, 2017 03:22 - CONCLUSION: Moderate amount air throughout the colon. G-tube in good position Devin Hassan MD Abdomen/Pelvis CT 04/28/17 0600 Signed Impressions: Service Date/Time: Friday, April 28, 2017 06:24 - CONCLUSION: 1. Abnormal lungs suggesting either failure or infiltrate. 2. Tube that may be a jejunostomy tube in the stomach. There is moderate gaseous distention of distal small bowel and colon with liquid stool in the ascending colon and minimal solid stool in the descending colon, all suggestive of an ileus. The etiology of this is not readily apparent. I do see a patent SMA and SMV. Shalom Espinal MD FACR Objective Remarks GENERAL: Patient is 36 yo lying in bed in NAD SKIN: Warm and dry. HEAD: Normocephalic. EYES: No scleral icterus. Mild injection, no drainage. NECK: Supple, trachea midline. Copious secretions in airway. CARDIOVASCULAR: RRR, no murmurs, gallops, or rubs. No JVD. RESPIRATORY: Congested breath sounds equal bilaterally. Upper airway obstructive sounds. GASTROINTESTINAL: Abdomen soft, non-tender, nondistended. PEG in place. MUSCULOSKELETAL: No cyanosis, or edema. Well perfused. Neuro: Contracted, non-verbal. Groans only. Cerebral palsy. A/P Assessment and Plan 1. Resp Failure 2. Gram positive bacteremia 3. Leukocytosis. 4. Lactic acidemia. 5. Acute kidney injury.- resolved 6. Ileus. 7. Malfunctioning J tube. 8. History of cerebral palsy. 9. History of seizures. 10. UGI bleeding. Plan Neuro: Monitor neuro status closely, minimize sedation. Continue with antiseizure meds. on Dilantin 100 mg BID. Dilantin level is 0.6. On Topamax 100 mg BID Pulm: PRVC vent mode. Bronchodilators. Sputum culture? CV:Monitor HR and BP keep MAP>65mmHg. On Lopressor 25 mg BID Continue with Florinef 0.2 mg daily. Aspirin 81 mg daily. : Monitor renal function, I/O's and avoid nephrotoxins. NS@50ml/hr. GI: On Protonix 40 mg daily for GI prophylaxis. GI is following s/p G-J tube exchange by IR 04/30, for therapeutic EGD today ID: Continue with abx(azithromycin, Zosyn, Vanco) WBC is trending down. Monitor for signs of infection(fever and WBCs). Check BC x 2 sets today 04/28 BC 2/4 sets: Staph Epi, coag negative staph, urine cx: No growth 04/29 BC: GPC 2 /4 bottles Heme: Monitor CBC Endo: SSI with Accu-Chek for glycemic control GI prophylaxis with Protonix 40 mg daily. DVT prophylaxis with SCDs. Overall impression: Critically ill with upper GI hemorrhage and airway obstruction. Required intubation and mechanical ventilation. His mother consented to intubation and EGD. Critical Care 40 mins aside from procedures. Sanket Estrada MD May 02, 2017 08:44
--- NOTE | 2017-05-02 08:48 | PD.PROCEDR ---
Procedure Note Procedure DX: Respiratory Failure (J96.01) OP: Orotracheal Intubation (49363) Procedure: Continuous suction while breathing spontaneously. Gentle assistance with respiratory effort. Known to have esophageal dilation and chronic aspiration. No iv access. Versed 10 mg IM. Peripheral IV access obtained. Rocuronium 50 mg iv. Intubated orally with 7.5 tube. Position confirmed with CO2 detection, breath sounds, sats 100%. CXR ordered, will review. Sanket Estrada MD May 02, 2017 08:48
[2017-05-02] MEDS: PHENYTOIN SUSP 100 MG/4 ML CUP PO SCH ×2 (09:00→20:46)
[2017-05-02] MEDS: FLUDROCORTISONE ACETATE 0.1 MG TAB PO SCH (09:00)
[2017-05-02] MEDS: SODIUM CHLORIDE 0.9% FLUSH 10 ML FLUSH IV FLUSH SCH ×2 (09:00→20:51)
[2017-05-02] MEDS: TOPIRAMATE 100 MG TAB PO SCH ×2 (09:00→20:46)
--- NOTE | 2017-05-02 09:04 | HHI.FPPN ---
Subjective Remarks called w hematemesis and aspiration, ordered transfer to ICU, ABG, CXR, CCM D/W RN Objective Vitals Vital Signs Date Time Temp Pulse Resp B/P Pulse Ox O2 Delivery O2 Flow Rate FiO2 05/02/17 08:38 98 40 05/02/17 08:00 96.0 110 38 111/58 94 05/02/17 08:00 109 05/02/17 04:00 96.5 116 56 105/68 97 05/02/17 00:00 96.7 116 111/68 96 05/01/17 20:30 110 05/01/17 20:13 99 Nasal Cannula 2.00 05/01/17 20:00 97.0 109 122/75 99 05/01/17 18:00 95.5 112 52 143/69 97 05/01/17 16:00 103 05/01/17 16:00 98.0 103 26 104/68 98 05/01/17 14:34 98.0 99 24 113/70 100 05/01/17 14:25 107 18 92/64 93 05/01/17 14:15 88 18 88/63 93 05/01/17 14:05 97.6 105 18 91/63 93 05/01/17 13:54 97.6 108 18 89/63 93 05/01/17 11:58 98.6 112 36 133/67 96 05/01/17 09:03 124 41 133/67 96 I/O 05/01/17 05/01/17 05/01/17 05/02/17 05/02/17 05/02/17 07:00 15:00 23:00 07:00 15:00 23:00 Intake Total 436 ml 813 ml 184 ml 396 ml Output Total 300 ml 350 ml 200 ml Balance 136 ml 813 ml -166 ml 196 ml Intake Oral 0 ml IV Total 376 ml 763 ml 147 ml 396 ml Tube Feeding 37 ml Other 60 ml 50 ml Output Urine Total 300 ml 350 ml 200 ml # Bowel Movements 0 1 Result Diagram: 05/01/17 0259 05/01/17 0259 Imaging Last 72 hours Impressions Tube Change 04/30/17 0000 Signed Impressions: Service Date/Time: Sunday, April 30, 2017 16:39 - CONCLUSION: Uncomplicated gastrojejunostomy tube exchange as above. Jose Allison MD Chest X-Ray 04/30/17 0000 Signed Impressions: Service Date/Time: Sunday, April 30, 2017 08:03 - CONCLUSION: Stable chest x-ray with right lower lung zone airspace consolidation and left lower lobe consolidation versus atelectasis. Mg Darling MD Objective Remarks GENERAL: intubated, NGT draining bile SKIN: Warm and dry. HEAD: Atraumatic. Normocephalic. EYES: Pupils equal and round. No scleral icterus. No injection or drainage. ENT: No nasal bleeding or discharge. Mucous membranes pink and moist. NECK: Trachea midline. No JVD. CARDIOVASCULAR: Regular rate and rhythm. RESPIRATORY: No accessory muscle use. Clear to auscultation. Breath sounds equal bilaterally. GASTROINTESTINAL: Abdomen soft, non-tender, nondistended. Hepatic and splenic margins not palpable. MUSCULOSKELETAL: Extremities without clubbing, cyanosis, or edema. No obvious deformities. NEUROLOGICAL: Motor grossly within normal limits. 1 out of 5 muscle strength in the arms and legs. PSYCHIATRIC: lethargic, encephalopathic Medications and IVs Current Medications Medications (Trade) Dose Ordered Sig/Carlotta Route Start Time Stop Time Status Last Admin (NS Flush) 2 ml UNSCH PRN IV FLUSH 04/28/17 08:30 (NS Flush) 2 ml BID IV FLUSH 04/28/17 09:00 05/01/17 22:16 (Zofran Inj) 4 mg Q6H PRN IVP 04/28/17 08:30 04/28/17 10:15 (Heparin Inj) 5,000 units Q12H SQ 04/28/17 08:30 05/01/17 20:36 (Narcan Inj) 0.4 mg UNSCH PRN IV 04/28/17 08:30 (Milk Of Magnesia Liq) 30 ml Q12H PRN PO 04/28/17 08:30 (Senokot) 17.2 mg Q12H PRN PO 04/28/17 08:30 (Dulcolax Supp) 10 mg DAILY PRN RECTAL 04/28/17 08:30 (Lactulose Liq) 30 ml DAILY PRN PO 04/28/17 08:30 (Zithromax) 250 mg DAILY G-TUBE 04/28/17 09:00 05/01/17 08:22 (Xanax) 0.5 mg Q8H PRN PO 04/28/17 10:15 05/01/17 18:56 (Ecotrin Ec) 81 mg DAILY PO 04/29/17 09:00 05/01/17 08:23 (Florinef) 0.2 mg DAILY PO 04/29/17 09:00 05/01/17 09:02 (Dilantin Liq) 100 mg BID PO 04/28/17 21:00 05/01/17 20:36 (Topamax) 100 mg BID PO 04/28/17 21:00 05/01/17 22:16 (Desyrel) 25 mg DAILY PRN PO 04/28/17 10:15 Miscellaneous 1 ea 1 ea UNSCH PRN OTHER 04/28/17 10:30 (Zosyn 3.375 Gm Premix) 50 ml @ 100 mls/hr Q6H IV 04/28/17 15:00 05/02/17 03:06 (D50w (Vial) Inj) 50 ml UNSCH PRN IV 04/28/17 14:15 (Glucagon Inj) 1 mg UNSCH PRN OTHER 04/28/17 14:15 (NovoLIN R SUPPLEMENTAL SCALE) 1 Q4H SQ 04/28/17 15:00 (Protonix Inj) 40 mg Q24H IV PUSH 04/28/17 16:00 05/01/17 15:56 Miscellaneous Information Patient in critical care unit? Ass... Q361D .XX 04/28/17 21:15 (Chlorhexidine 2% Cloth) 3 pack DAILY@04 TOPICAL 04/29/17 04:00 05/03/17 04:01 05/02/17 03:52 (Chlorhexidine 2% Cloth) 3 pack UNSCH PRN TOPICAL 04/28/17 21:15 05/03/17 21:13 (Haldol Inj) 5 mg Q4H PRN IV 04/28/17 23:30 04/29/17 21:59 Lorazepam 0.5 mg 0.5 mg Q4H PRN IV 04/28/17 23:45 05/01/17 09:46 Pharmacy Profile Note 0 ml @ 0 mls/hr UNSCH OTHER 04/29/17 09:15 Dextrose/Sodium Chloride 1,000 ml @ 50 mls/hr Q20H IV 04/29/17 10:00 04/30/17 22:50 (Vancomycin Inj/ NS 250 ml Inj) 256.5 ml @ 256.5 mls/ hr Q24H IV 04/30/17 10:00 05/01/17 09:02 Miscellaneous Information SPECIFIC LAB TO BE TIMOTEO... ONCE ONCE .XX 05/02/17 09:45 05/02/17 09:46 (Lopressor) 25 mg Q12H PO 04/29/17 18:00 05/02/17 05:47 (Miralax) 17 gm DAILY DOBHOFF 04/30/17 17:00 05/01/17 08:22 Bethanechol Chloride 12.5 mg 12.5 mg Q8HR PEG 04/30/17 22:00 05/02/17 05:47 (Protonix Inj/NS Inj) 100 ml @ 10 mls/hr Q10H IV 05/02/17 10:00 Chlorhexidine Gluconate 15 ml 15 ml BID@08,20 MT 05/02/17 20:00 (Diprivan 1000 Mg/100ml Inj) 100 ml @ 0 mls/hr TITRATE IV 05/02/17 08:45 Urinary Catheter: Yes A/P Assessment and Plan VDRF ASPIRATION, RECURRENT GIB ILEUS LACTIC ACIDOSIS GP BACTEREMIA SIM Malfunctioning J tube. IR consulted repositioned J-tube Cerebral palsy. SZ PLAN: STAT ABG CXR CBC, BMP TRANSFER BACK TO ICU CCM CONSULT NGT Dilantin 100 mg BID. Topamax 100 mg BID Florinef 0.2 mg daily. ivf Protonix IV abx SSI DVT prophylaxis with SCDs. TELE Andrew St MD May 02, 2017 09:04
--- NOTE | 2017-05-02 09:44 | RADRPT ---
EXAM DATE/TIME: 05/02/2017 09:04 [facility] COMPARISON: CHEST SINGLE AP, April 30, 2017, 8:03. INDICATIONS : ET tube placement and congestion. MEDICAL HISTORY : Cerebral palsy, seizure SURGICAL HISTORY : J tube. ENCOUNTER: Subsequent ACUITY: 4 - 6 days PAIN SCORE: Non-responsive. LOCATION: Bilateral chest FINDINGS: Patient has an apparent jejunostomy tube in place. I'm not sure where the tip is. The nasogastric t ube is not across the GE junction. The heart is enlarged. Minimal perihilar parenchymal changes are present. The vascularity is normal. ET tube right main bronchus. CONCLUSION: 1. ET tube right main bronchus 2. Nasogastric tube not across the GE junction 3. I'm not sure of the location of the jejunostomy tube tip 4. Minimal perihilar parenchymal changes. Shalom Espinal MD FACR on May 02, 2017 at 9:40 Board Certified Radiologist. This report was verified electronically.
[2017-05-02] MEDS ORDERED: PHARMACY ORDERED LAB ONE (09:45)
[2017-05-02 09:53] LABS: BLOOD GAS BASE EXCESS -4.4 mmol/L (-2-2); BLOOD GAS CARBOXYHEMOGLOBIN 1.2 % (0-4); BLOOD GAS HCO3 18 mmol/L (22-26); BLOOD GAS METHEMOGLOBIN 0.7 % (0-2); BLOOD GAS O2 HGB SATURATION 98 % (90-100); BLOOD GAS OXYGEN CONTENT 13.7 Vol % (12.0-20.0); BLOOD GAS PCO2 23 mmHg (38-42); BLOOD GAS PO2 165 mmHg (61-120); BLOOD GAS TOTAL HGB 9.7 G/DL (12.0-16.0); TEMP CORR TO 98.6
[2017-05-02 09:54] LABS: DRAW SITE RT RADIAL; FIO2 40 %; NUMBER OF ARTERIAL PUNCTURES 1; OXYGEN DEVICE VENTILATOR; STAT NO; ULNAR PULSE PRESENT; VENT SETTINGS PRVC450/14 PEEP5
[2017-05-02 09:59] LABS: AUTOMATED NEUTROPHIL # 9.4 TH/MM3 (1.8-7.7); BASOPHIL % 0.1 % (0.0-2.0); EOSINOPHIL # 0.1 TH/MM3 (0-0.4); EOSINOPHIL % 0.5 % (0.0-4.0); HEMATOCRIT 32.4 % (39.0-51.0); HEMO FLAGS DIFF FINAL; LYMPH % 10.7 % (9.0-44.0); LYMPHOCYTE # 1.2 TH/MM3 (1.0-4.8); MEAN CELL VOLUME 79.1 FL (80.0-100.0); MEAN CORPUSCULAR HEMOGLOBIN 25.1 PG (27.0-34.0); MEAN CORPUSCULAR HGB CONC 31.8 % (32.0-36.0); MONO % 3.7 % (0.0-8.0); PLATELET COUNT 318 TH/MM3 (150-450); RED CELL DISTRIBUTION WIDTH 18.7 % (11.6-17.2)
[2017-05-02] MEDS: PANTOPRAZOLE INJ 80 MG in SODIUM CHLORIDE 0.9% INJ 100 ML IV SCH ×2 (10:00→20:49)
[2017-05-02 10:07] LABS: APTT (PATIENT) 33.4 SEC (24.3-30.1); INTERNATIONAL NORMALIZED RATIO 1.1 RATIO; PROTHROMBIN TIME - PATIENT 11.8 SEC (9.8-11.6)
[2017-05-02 10:20] LABS: BICARBONATE 22.2 MEQ/L (21.0-32.0)
[2017-05-02 10:22] LABS: POTASSIUM 3.9 MEQ/L (3.5-5.1)
[2017-05-02] MEDS ORDERED: PROPOFOL 200 MG/20 ML AMP IV ONE (10:37)
--- NOTE | 2017-05-02 10:51 | GIPROC ---
[facility] [address] [facility]. [facility], [address] EGD PROCEDURE REPORT EXAM DATE: 05/02/2017 PATIENT NAME: Remigio Thakur MR #: [id number] BIRTHDATE: 1980 ATTENDING: Shayla Watts MD ORDER #: [id number] FINANCIAL DEVELOPER: Rafa Hussein and Tawanda Brown STATUS: inpatient INDICATIONS: The patient is a 36 yr old male here for an EGD due to hematemesis PROCEDURE PERFORMED: EGD, diagnostic MEDICATIONS: Per Anesthesia and None. TOPICAL ANESTHETIC: none CONSENT: The patient understands the risks and benefits of the procedure and understands that these risks include, but are not limited to: sedation, allergic reaction, infection, perforation and/or bleeding. Alternative means of evaluation and treatment include, among others: physical exam, x-rays, and/or surgical intervention. The patient elects to proceed with this endoscopic procedure. medical equipment was checked for proper function. Hand hygiene and appropriate measures for infection prevention was taken. After the risks, benefits and alternatives of the procedure were thoroughly explained, Informed consent was verified, confirmed and timeout was successfully executed by the treatment team. The patient was anesthetized with topical anesthesia and the Pentax [id number] and [id number] endoscope was introduced through the mouth and advanced to the pylorus. Retroflexed views revealed a hiatal hernia The gastroscope was then slowly withdrawn and removed. Severe esophagitis j shape stomach g/j tube in stomach going into pylorus-could not advance into duodenum no active bleeding. ADVERSE EVENTS: There were no complications. IMPRESSIONS: 1. Severe esophagitis j shape stomach g/j tube in stomach going into pylorus-could not advance into duodenum no active bleeding 2. Retroflexed views revealed a hiatal hernia RECOMMENDATIONS: 1. Anti-reflux regimen 2. Protonix iv ct abdomen/pelvis vit gastrografin via g/j tube npo j tube to suction ngt to suction PATIENT CONDITION: stable DISPOSITION: Inpatient REPEAT EXAM: EGD pending biopsy results Shayla Watts MD eSigned: Shayla Watts MD 05/02/2017 10:51 AM cc: PATIENT NAME: Remigio Thakur MR#: [id number]
[2017-05-02] MEDS: PROPOFOL 1000 MG/100 ML INJ 100 ML IV SCH ×2 (11:18→23:55)
[2017-05-02] MEDS ORDERED: DIATRIZOATE MEGLUM/DIATRIZOATE SOD 9 ML CUP PO ONE (12:00)
[2017-05-02] MEDS ORDERED: DO NOT ADM ANY ANTICOAGULANT DRUGS PRN (12:00)
[2017-05-02] MEDS: AZITHROMYCIN 250 MG TAB G-TUBE SCH (12:48)
[2017-05-02] MEDS: VANCOMYCIN INJ 750 MG in SODIUM CHLOR 0.9% 250 ML INJ 250 ML IV SCH (14:09)
[2017-05-02] MEDS: PANTOPRAZOLE SODIUM 40 MG VIAL IV PUSH SCH (16:00)
[2017-05-02] MEDS ORDERED: IOHEXOL 350 MG/ML 10 ML VIAL (for RAD DIAG) IV ONE (17:18)
--- NOTE | 2017-05-02 18:02 | RADRPT ---
EXAM DATE/TIME: 05/02/2017 17:14 [facility] COMPARISON: CT ABDOMEN & PELVIS W CONTRAST, April 28, 2017, 6:24. INDICATIONS : Abdomen pain with vomiting blood today. IV CONTRAST: 75 cc Omnipaque 350 (iohexol) IV ORAL CONTRAST: Partial prescribed oral contrast ingested. RADIATION DOSE: 8.43 CTDIvol (mGy) MEDICAL HISTORY : Seizures. Scoliosis, Bradycardia, Cerebral palsy. SURGICAL HISTORY : Splenectomy. JTube ENCOUNTER: Initial ACUITY: 1 day PAIN SCALE: Non-responsive LOCATION: Bilateral upper quadrant TECHNIQUE: Volumetric scanning of the abdomen and pelvis was performed. Using automated exposure control and ad justment of the mA and/or kV according to patient size, radiation dose was kept as low as reasonably achievable to obtain optimal diagnostic quality images. DICOM format image data is available electro nically for review and comparison. FINDINGS: LOWER LUNGS: A new tiny right pleural effusion. Bibasilar consolidation is new on the right and more dense on the left from the prior study. There is a fluid-filled esophagus. A hiatal hernia is noted. A nasogastric tube is seen with the tip just past the GE junction. LIVER: Homogeneous density without lesion. There is no dilation of the biliary tree. No calcified gallston es. SPLEEN: Surgically absent. A small splenule is seen. PANCREAS: Within normal limits. KIDNEYS: Normal in size and shape. There is no mass, stone or hydronephrosis. ADRENAL GLANDS: Within normal limits. VASCULAR: There is no aortic aneurysm. BOWEL/MESENTERY: Dilated loops of small bowel are seen throughout the abdomen. These are largely fluid-filled. The the appearance is unchanged other than an increase in the volume of fluid. A small amount of free fluid is within the pelvis. No free air. Colon is largely decompressed. A gastrojejunostomy tube is noted. The tip is in the proximal jejunum. ABDOMINAL WALL: Within normal limits. RETROPERITONEUM: There is no lymphadenopathy. BLADDER: No wall thickening or mass. REPRODUCTIVE: Within normal limits. INGUINAL: There is no lymphadenopathy or hernia. MUSCULOSKELETAL: A windswept pelvis is noted. CONCLUSION: 1. Persistent dilatation of the small bowel which is now more fluid-filled than on the prior study. N o inflammatory process or stranding lesion observed. No free air. Small amount of free fluid. 2. Development of a small right effusion. 3. Bibasilar pulmonary infiltrates. 4. Hiatal hernia. 5. Prior splenectomy. Gaston Wagner Jr., MD on May 02, 2017 at 17:52 Board Certified Radiologist. This report was verified electronically.
[2017-05-02] MEDS: CHLORHEXIDINE 0.12% (ORAL KIT) 15 ML CUP MT SCH (20:00)
[2017-05-02] MEDS: DEXT 5%-NACL 0.45% 1000 ML INJ 1,000 ML IV SCH (20:49)
[2017-05-03] VITALS (12 sets, daily range): BP systolic 100–120; BP diastolic 50–63; PULSE 77–103; RESP 12–14; TEMP 97.6–98.6; O2SAT 96–100
[2017-05-03] MEDS: INSULIN NovoLIN REGULAR SUPPLEMENTAL SCALE SQ SCH ×6 (03:00→23:00)
[2017-05-03] MEDS: PIPERACIL-TAZO 3.375 GM PREMIX 50 ML IV SCH ×4 (03:27→21:56)
[2017-05-03] MEDS: CHLORHEXIDINE GLUCONATE 2 % 1 PACK (2 CLOTHS)(taper/protocol) TOPICAL SCH (04:00)
[2017-05-03] MEDS: METOPROLOL TARTRATE 25 MG TAB PO SCH ×2 (06:00→22:00)
[2017-05-03] MEDS: BETHANECHOL CHL 25 MG TAB PEG SCH ×3 (06:11→21:56)
[2017-05-03] MEDS: PANTOPRAZOLE INJ 80 MG in SODIUM CHLORIDE 0.9% INJ 100 ML IV SCH (07:35)
[2017-05-03] MEDS: ASPIRIN EC 81 MG TABEC PO SCH ×2 (08:23→08:29)
[2017-05-03] MEDS: AZITHROMYCIN 250 MG TAB G-TUBE SCH (08:29)
[2017-05-03] MEDS: TOPIRAMATE 100 MG TAB PO SCH ×2 (08:29→21:56)
[2017-05-03] MEDS: FLUDROCORTISONE ACETATE 0.1 MG TAB PO SCH (08:30)
[2017-05-03] MEDS: PHENYTOIN SUSP 100 MG/4 ML CUP PO SCH ×2 (08:30→21:57)
[2017-05-03] MEDS: POLYETHYLENE GLYCOL 17 GM PKG DOBHOFF SCH (08:30)
[2017-05-03] MEDS: HEPARIN SODIUM - SQ 10,000 UNITS/ML VIAL SQ SCH ×2 (08:31→21:56)
[2017-05-03] MEDS: SODIUM CHLORIDE 0.9% FLUSH 10 ML FLUSH IV FLUSH SCH ×2 (09:00→21:00)
[2017-05-03] MEDS: CHLORHEXIDINE 0.12% (ORAL KIT) 15 ML CUP MT SCH ×2 (09:10→20:00)
--- NOTE | 2017-05-03 09:49 | HHI.CCPN ---
Subjective Remarks/Hospital Course The patient is a 36-year-old male with past medical history of seizure disorder , cerebral palsy, previous G-J tube placement for nutritional support who presented to the [facility] Emergency Department by his mom for intractable nausea and vomiting. No history of any fever or constitutional symptoms. In addition, no history of any abdominal pain. On arrival to the emergency room, he was tachycardiac with heart rate of 107-112 and had a blood pressure of 116/64. His laboratory data showed acute kidney injury with creatinine level 1.89, lactic acidemia with a lactic acid level of 4.1. In addition, the patient was found to have leukocytosis with a WBC of 20. Chest x- ray in the emergency room showed no acute cardiopulmonary disease. The patient underwent a KUB of the abdomen which showed G-tube in good position, moderate air throughout the colon. He subsequently underwent CT scan of the abdomen and pelvis which showed jejunostomy tube in the stomach, moderate gaseous distension of the distal small bowel and colon and findings suggestive of ileus. In the emergency room, he was given 2 liters of crystalloids, Zosyn, Zofran and Cerebyx. His Dilantin level measured at 0.6. The patient was initially admitted to [facility] under the hospitalist service. However critical care medicine was consulted by Dr. Rojas for possible aspiration. When seen, the patient is on room air oxygen with a saturation of 94% with blood pressure 113/ 72 and a pulse of 109. IR was consulted by [facility] for repositioning of the J- tube as it is coiled in the stomach. 04/29 Patient was given 2L NS boluses overnight for tachycardia. Afebrile. WBC is trending down. 04/30 Patient was placed on BIPAP last night for desaturation. WBC is trending down, afebrile. 05/01 Patient s/p G-J tune exchange by IR yesterday. Afebrile, tachycardic, for EGD today. 05/02: New upper GI bleeding and preceding aspiration pneumonia. Requires intubation for airway protection. No iv access, will use IM versed. 05/03: Gas exchange acceptable. Will push for quick extubation. Basilar infiltrates clearing. Improved hydration. Objective Vital Signs Date Time Temp Pulse Resp B/P Pulse Ox O2 Delivery O2 Flow Rate FiO2 05/03/17 08:44 99 40 05/03/17 04:00 77 8/3/17 04:00 98.0 12 100/58 05/01/17 20:13 Nasal Cannula 2.00 Intake and Output 05/02/17 05/02/17 05/02/17 07:59 15:59 23:59 Intake Total 396 ml 664 ml 1270 ml Output Total 200 ml 1170 ml 1125 ml Balance 196 ml -506 ml 145 ml Result Diagram: 05/02/17 0920 05/02/17 0920 Other Results Laboratory Tests Test 05/02/17 09:50 Blood Gas Puncture Site RT RADIAL Blood Gas Patient Temperature 98.6 Blood Gas HCO3 18 mmol/L (22-26) Blood Gas Base Excess -4.4 mmol/L (-2-2) Blood Gas Oxygen Saturation 98 % (90-100) Arterial Blood pH 7.51 (7.380-7.420) Arterial Blood Partial 23 mmHg (38-42) Pressure CO2 Arterial Blood Partial 165 mmHg Pressure O2 (61-120) Arterial Blood Oxygen Content 13.7 Vol % (12.0-20.0) Arterial Blood 1.2 % (0-4) Carboxyhemoglobin Arterial Blood Methemoglobin 0.7 % (0-2) Blood Gas Hemoglobin 9.7 G/DL (12.0-16.0) Oxygen Delivery Device VENTILATOR Blood Gas Ventilator Setting [id number] Blood Gas Inspired Oxygen 40 % Imaging Last Impressions Tube Change 04/30/17 0000 Signed Impressions: Service Date/Time: Sunday, April 30, 2017 16:39 - CONCLUSION: Uncomplicated gastrojejunostomy tube exchange as above. Jose Allison MD Chest X-Ray 04/30/17 0000 Signed Impressions: Service Date/Time: Sunday, April 30, 2017 08:03 - CONCLUSION: Stable chest x-ray with right lower lung zone airspace consolidation and left lower lobe consolidation versus atelectasis. Mg Darling MD Abdomen X-Ray 04/29/17 0600 Signed Impressions: Service Date/Time: Saturday, April 29, 2017 03:22 - CONCLUSION: Moderate amount air throughout the colon. G-tube in good position Devin Hassan MD Abdomen/Pelvis CT 04/28/17 0600 Signed Impressions: Service Date/Time: Friday, April 28, 2017 06:24 - CONCLUSION: 1. Abnormal lungs suggesting either failure or infiltrate. 2. Tube that may be a jejunostomy tube in the stomach. There is moderate gaseous distention of distal small bowel and colon with liquid stool in the ascending colon and minimal solid stool in the descending colon, all suggestive of an ileus. The etiology of this is not readily apparent. I do see a patent SMA and SMV. Shalom Espinal MD FACR Objective Remarks GENERAL: Patient is 36 yo lying in bed in NAD SKIN: Warm and dry. HEAD: Normocephalic. EYES: No scleral icterus, no drainage. NECK: Supple, trachea midline. Orally intubated. CARDIOVASCULAR: RRR, no murmurs, gallops, or rubs. No JVD. RESPIRATORY: Bilateral breath sounds. Comfortable pattern. GASTROINTESTINAL: Abdomen soft, non-tender, nondistended. PEG in place. MUSCULOSKELETAL: No cyanosis, or edema. Well perfused. Neuro: Contracted, non-verbal. Cerebral palsy. A/P Assessment and Plan 1. Resp Failure 2. Gram positive bacteremia 3. Leukocytosis. 4. Lactic acidemia. 5. Acute kidney injury.- resolved 6. Ileus. 7. Malfunctioning J tube. 8. History of cerebral palsy. 9. History of seizures. 10. UGI bleeding. Plan Neuro: Monitor neuro status closely, minimize sedation. Continue with antiseizure meds. on Dilantin 100 mg BID. Dilantin level is 0.6. On Topamax 100 mg BID Pulm: PRVC vent mode. Bronchodilators. Sputum culture? CV:Monitor HR and BP keep MAP>65mmHg. On Lopressor 25 mg BID Continue with Florinef 0.2 mg daily. Aspirin 81 mg daily. : Monitor renal function, I/O's and avoid nephrotoxins. NS@50ml/hr. GI: On Protonix 40 mg daily for GI prophylaxis. GI is following s/p G-J tube exchange by IR 04/30, for therapeutic EGD today ID: Continue with abx(azithromycin, Zosyn, Vanco) WBC is trending down. Monitor for signs of infection(fever and WBCs). Check BC x 2 sets today 04/28 BC 2/4 sets: Staph Epi, coag negative staph, urine cx: No growth 04/29 BC: GPC 2 /4 bottles Heme: Monitor CBC Endo: SSI with Accu-Chek for glycemic control GI prophylaxis with Protonix 40 mg daily. DVT prophylaxis with SCDs. Overall impression: Improved respiratory status. Will push to extubate. Sanket Estrada MD May 03, 2017 09:48
[2017-05-03] MEDS: VANCOMYCIN INJ 750 MG in SODIUM CHLOR 0.9% 250 ML INJ 250 ML IV SCH (15:12)
[2017-05-03] MEDS: PANTOPRAZOLE SODIUM 40 MG VIAL IV PUSH SCH ×2 (16:41→21:55)
--- NOTE | 2017-05-03 16:45 | HHI.GIFU ---
Subjective Remarks Resting in bed. No distress. No further bleeding. Still draining large amount of gastric secretions from NGT- 300-400cc this shift- no blood noted in this. 1 green stool today. (Tabatha Garza) Objective Vitals I&O Vital Signs Date Time Temp Pulse Resp B/P Pulse Ox O2 Delivery O2 Flow Rate FiO2 05/03/17 12:00 97.9 94 12 110/63 100 05/03/17 12:00 94 05/03/17 12:00 40 05/03/17 10:52 100 40 05/03/17 08:44 99 40 05/03/17 08:00 98.6 94 12 105/50 96 05/03/17 08:00 94 05/03/17 08:00 40 05/03/17 04:19 100 40 05/03/17 04:00 77 05/03/17 04:00 98.0 102 12 100/58 100 05/03/17 04:00 40 05/03/17 00:47 100 40 05/03/17 00:00 103 05/03/17 00:00 97.8 103 12 113/51 100 05/03/17 00:00 40 05/02/17 20:00 97.6 90 12 124/67 100 05/02/17 20:00 90 05/02/17 20:00 40 05/02/17 17:34 100 100 I/O 05/02/17 05/02/17 05/02/17 05/03/17 05/03/17 05/03/17 07:00 15:00 23:00 07:00 15:00 23:00 Intake Total 396 ml 664 ml 1270 ml 734 ml 907 ml Output Total 200 ml 1170 ml 1125 ml 600 ml 475 ml Balance 196 ml -506 ml 145 ml 134 ml 432 ml Intake Oral 0 ml 0 ml 0 ml IV Total 396 ml 664 ml 1240 ml 734 ml 907 ml Other 30 ml Output Urine Total 200 ml 170 ml 325 ml 300 ml 225 ml Gastric Drainage Total 1000 ml 800 ml 300 ml 250 ml # Bowel Movements 1 1 Laboratory Date/Time Procedure Status Source Growth 05/03/17 14:54 Aerobic Blood Culture Received Blood Peripheral Pending 05/03/17 14:54 Anaerobic Blood Culture Received Blood Peripheral Pending 05/01/17 15:11 Aerobic Blood Culture - Preliminary Resulted Blood Peripheral NO GROWTH IN 2 DAYS 05/01/17 15:11 Anaerobic Blood Culture - Preliminary Resulted Blood Peripheral NO GROWTH IN 2 DAYS Imaging Last Impressions Chest X-Ray 05/02/17 0000 Signed Impressions: Service Date/Time: Tuesday, May 02, 2017 09:04 - CONCLUSION: 1. ET tube right main bronchus 2. Nasogastric tube not across the GE junction 3. I'm not sure of the location of the jejunostomy tube tip 4. Minimal perihilar parenchymal changes. Shalom Espinal MD FACR Abdomen/Pelvis CT 05/02/17 0000 Signed Impressions: Service Date/Time: Tuesday, May 02, 2017 17:14 - CONCLUSION: 1. Persistent dilatation of the small bowel which is now more fluid-filled than on the prior study. No inflammatory process or stranding lesion observed. No free air. Small amount of free fluid. 2. Development of a small right effusion. 3. Bibasilar pulmonary infiltrates. 4. Hiatal hernia. 5. Prior splenectomy. Gaston Wagner Jr., MD Tube Change 04/30/17 0000 Signed Impressions: Service Date/Time: Sunday, April 30, 2017 16:39 - CONCLUSION: Uncomplicated gastrojejunostomy tube exchange as above. Jose Allison MD Abdomen X-Ray 04/29/17 0600 Signed Impressions: Service Date/Time: Saturday, April 29, 2017 03:22 - CONCLUSION: Moderate amount air throughout the colon. G-tube in good position Devin Hassan MD Physical Exam HEENT: Normocephalic; atraumatic CHEST: Resp. even, unlabored, course breath sounds, 02 sat 97% on room air CARDIAC: RRR ABDOMEN: Soft, mildly distended, no hepatosplenomegaly; bowel sounds hypoactive. GJ tube clamped. NGT with large amount bilious material. Vomiting reddish brown emesis. EXTREMITIES: Contracted AUTOMOTIVE SERVICE DIRECTOR: Nonverbal (Tabatha Garza) Assessment and Plan Plan ASSESSMENT: - Upper GIB. S/P EGD (05/02/17)-----> 1. G/j tube in place, hiatal hernia, dilated esophagus, esophagitis distal esophagus-biopsy, some gastric juice sitting in esophagus / stomach-suctioned suggesting poor motility 2. Retroflexed views revealed a hiatal hernia. Pathology esophagus with acute ulcerative and chronic esophagitis, fungal hyphal and yeast forms consistent with daryl are present (Gomori methenamine silver stain). Pt started vomiting reddish brown secretions overnight yesterday. NG was placed in esophagus and immediately suctioned large amount of reddish brown secretions. He was tx to [facility]. S/P EGD (05/03/17)----> 1. Severe esophagitis j shape stomach g/j tube in stomach going into pylorus-could not advance into duodenum no active bleeding 2. Retroflexed views revealed a hiatal hernia. NGT with large amount of bilious material without bleeding. 300-400cc this shift. Abdomen/Pelvis CT (05/02)----> 1. Persistent dilatation of the small bowel which is now more fluid-filled than on the prior study. No inflammatory process or stranding lesion observed. No free air. Small amount of free fluid. 2. Development of a small right effusion. 3. Bibasilar pulmonary infiltrates. 4. Hiatal hernia. 5. Prior splenectomy. HH 10. /32.4. - Colonic Ileus with n/v and constipation. Abdomen/Pelvis CT (04/28/17)----> 1. Abnormal lungs suggesting either failure or infiltrate. 2. Tube that may be a jejunostomy tube in the stomach. There is moderate gaseous distention of distal small bowel and colon with liquid stool in the ascending colon and minimal solid stool in the descending colon, all suggestive of an ileus. The etiology of this is not readily apparent. I do see a patent SMA and SMV. Abdomen X-Ray ()----> Moderate amount air throughout the colon. G-tube in good position. (+) BM.Rpt. CT as above. Bethanechol (reglan has multiple interactions listed with psych meds), Miralax daily. - Daryl esophagitis. Will start Nystatin (multiple drug interactions with diflucan) - Leukocytosis/Bacteremia. BCX (04/28) with staph coagulase negative, staphylococcus epidermidis. Rpt culture (04/29/17) gram positive coci, staph coag neg. BCx from (05/01) GPC. Vancomycin - SIM with electrolyte abnormalities, per CCM - Hx cerebral palsy, development delay, sz disorder PLAN: - Glucerna 1.5 @ 10cc via J tube - Add Nystatin (multiple drug interactions with diflucan) - Protonix 40mg IV BID - EES not able to be ordered in EMR - Bethanechol - Miralax - Monitor HH, transfuse as needed - Notify GI of active bleeding - Supportive care - Further recommendations to follow based on results of above. - Pt seen and examined by Dr. Watts and myself and this note is written on her behalf (Tabatha Garza) Physician Comments seen, examined agree with above (Shayla Watts MD) Tabatha Garza May 03, 2017 16:45 Shayla Watts MD May 03, 2017 19:58
[2017-05-03] MEDS: DEXT 5%-NACL 0.45% 1000 ML INJ 1,000 ML IV SCH ×3 (18:45→21:59)
--- NOTE | 2017-05-03 19:34 | HHI.IDPN ---
Subjective Subjective Remarks is a 36 y/o CM with PMHx of seizure disorder, cerebral palsy, prior h/ o recurrent aspiration pneumonia, prior PSAE pneumoniae, prior Ileus and N/V episodes with resultant aspiration pneumoniae. Overnight events reviewed. Noted now in ISC, intubated for airway protection. Aspiration event. Blood cultures positive different staph species. No source identified. Skin normal PEG tube site normal. Antibiotics Zosyn IV Vanco IV Lines Line sites with no e.o infection Past Medical History reviewed. Allergies: Coded Allergies: *MDRO Multi-Drug Resistant Organism (Verified Adverse Reaction, Unknown, ) MDR Pseudomonas (sputum) - 11/09/16 Objective . Vital Signs Date Time Temp Pulse Resp B/P Pulse Ox O2 Delivery O2 Flow Rate FiO2 05/03/17 18:03 100 05/03/17 18:03 40 05/03/17 18:03 97.9 94 12 110/63 100 05/03/17 16:49 100 40 05/03/17 12:00 97.9 94 12 110/63 100 05/03/17 12:00 94 05/03/17 12:00 40 05/03/17 10:52 100 40 05/03/17 08:44 99 40 05/03/17 08:00 98.6 94 12 105/50 96 05/03/17 08:00 94 05/03/17 08:00 40 05/03/17 04:19 100 40 05/03/17 04:00 77 05/03/17 04:00 98.0 102 12 100/58 100 05/03/17 04:00 40 05/03/17 00:47 100 40 05/03/17 00:00 103 05/03/17 00:00 97.8 103 12 113/51 100 05/03/17 00:00 40 05/02/17 20:00 97.6 90 12 124/67 100 05/02/17 20:00 90 05/02/17 20:00 40 05/02/17 05/02/17 05/03/17 15:00 23:00 07:00 Intake Total 664 ml 1270 ml 734 ml Output Total 1170 ml 1125 ml 600 ml Balance -506 ml 145 ml 134 ml Intake Oral 0 ml 0 ml IV Total 664 ml 1240 ml 734 ml Other 30 ml Output Urine Total 170 ml 325 ml 300 ml Gastric Drainage Total 1000 ml 800 ml 300 ml . Laboratory Tests Test 05/02/17 09:20 White Blood Count 11.0 TH/MM3 Red Blood Count 4.10 MIL/MM3 Hemoglobin 10.3 GM/DL Hematocrit 32.4 % Mean Corpuscular Volume 79.1 FL Mean Corpuscular Hemoglobin 25.1 PG Mean Corpuscular Hemoglobin 31.8 % Concent Red Cell Distribution Width 18.7 % Platelet Count 318 TH/MM3 Mean Platelet Volume 8.2 FL Neutrophils (%) (Auto) 85.0 % Lymphocytes (%) (Auto) 10.7 % Monocytes (%) (Auto) 3.7 % Eosinophils (%) (Auto) 0.5 % Basophils (%) (Auto) 0.1 % Neutrophils # (Auto) 9.4 TH/MM3 Lymphocytes # (Auto) 1.2 TH/MM3 Monocytes # (Auto) 0.4 TH/MM3 Eosinophils # (Auto) 0.1 TH/MM3 Basophils # (Auto) 0.0 TH/MM3 CBC Comment DIFF FINAL Differential Comment Laboratory Tests Test 05/02/17 09:20 Sodium Level 139 MEQ/L Potassium Level 3.9 MEQ/L Chloride Level 106 MEQ/L Carbon Dioxide Level 22.2 MEQ/L Anion Gap 11 MEQ/L Blood Urea Nitrogen 12 MG/DL Creatinine 1.09 MG/DL Estimat Glomerular Filtration 94 ML/MIN Rate Random Glucose 67 MG/DL Calcium Level 8.8 MG/DL Microbiology Date/Time Procedure Status Source Growth 05/01/17 15:00 Aerobic Blood Culture - Preliminary Resulted Blood Peripheral Gram Positive Cocci 05/01/17 15:00 Anaerobic Blood Culture - Preliminary Resulted Blood Peripheral NO GROWTH IN 2 DAYS 05/01/17 15:11 Aerobic Blood Culture - Preliminary Resulted Blood Peripheral NO GROWTH IN 2 DAYS 05/01/17 15:11 Anaerobic Blood Culture - Preliminary Resulted Blood Peripheral NO GROWTH IN 2 DAYS 05/03/17 14:50 Aerobic Blood Culture Received Blood Peripheral Pending 05/03/17 14:50 Anaerobic Blood Culture Received Blood Peripheral Pending 05/03/17 14:54 Aerobic Blood Culture Received Blood Peripheral Pending 05/03/17 14:54 Anaerobic Blood Culture Received Blood Peripheral Pending Imaging Last Impressions Chest X-Ray 05/02/17 0000 Signed Impressions: Service Date/Time: Tuesday, May 02, 2017 09:04 - CONCLUSION: 1. ET tube right main bronchus 2. Nasogastric tube not across the GE junction 3. I'm not sure of the location of the jejunostomy tube tip 4. Minimal perihilar parenchymal changes. Shalom Espinal MD FACR Abdomen/Pelvis CT 05/02/17 0000 Signed Impressions: Service Date/Time: Tuesday, May 02, 2017 17:14 - CONCLUSION: 1. Persistent dilatation of the small bowel which is now more fluid-filled than on the prior study. No inflammatory process or stranding lesion observed. No free air. Small amount of free fluid. 2. Development of a small right effusion. 3. Bibasilar pulmonary infiltrates. 4. Hiatal hernia. 5. Prior splenectomy. Gaston Wagner Jr., MD Tube Change 04/30/17 0000 Signed Impressions: Service Date/Time: Sunday, April 30, 2017 16:39 - CONCLUSION: Uncomplicated gastrojejunostomy tube exchange as above. Jose Allison MD Abdomen X-Ray 04/29/17 0600 Signed Impressions: Service Date/Time: Saturday, April 29, 2017 03:22 - CONCLUSION: Moderate amount air throughout the colon. G-tube in good position Devin Hassan MD Assessment & Plan Remarks Possible sepsis on admission. Possible aspiration pneumonia present on admission given ileus, N/V prior to admission. Staph bacteremia ID pending (No CL or PICC on admission) Likely contaminant as different species. But given multiple hospitalizations and Lines r/o endocarditis. Cerebral Palsy Seizure disorder. J tube site ok. PSAE Recs: Continue Zosyn IV (cover suspected aspiration Pneumonia. Prior PSAE history) Continue Vanco IV (target trough 15-20 for bacteremia) for now. If 2D ECHO negative ok to DC vanco IV. DC Oral azithro. Follow cultures. Follow clinically. I will be OOT from 05/04/2017 to 05/10/2017. Other ID MDs covering for me. I will be back 05/11/2017. Janet Yates MD May 03, 2017 19:34
[2017-05-03] MEDS: NYSTATIN 500,000 UNIT TAB PO SCH (21:56)
[2017-05-04] VITALS (12 sets, daily range): BP systolic 107–139; BP diastolic 53–71; PULSE 42–62; RESP 12–14; TEMP 97.2–99.6; O2SAT 98–100
[2017-05-04] MEDS: INSULIN NovoLIN REGULAR SUPPLEMENTAL SCALE SQ SCH ×6 (03:00→23:00)
[2017-05-04] MEDS: PIPERACIL-TAZO 3.375 GM PREMIX 50 ML IV SCH ×4 (03:28→21:06)
[2017-05-04] MEDS: NYSTATIN 500,000 UNIT TAB PO SCH ×3 (05:51→21:06)
[2017-05-04] MEDS: BETHANECHOL CHL 25 MG TAB PEG SCH ×3 (05:51→21:07)
[2017-05-04] MEDS: METOPROLOL TARTRATE 25 MG TAB PO SCH ×2 (05:51→18:36)
--- NOTE | 2017-05-04 06:41 | RADRPT ---
EXAM DATE/TIME: 05/04/2017 04:58 [place] COMPARISON: CHEST SINGLE AP, May 02, 2017, 9:04. INDICATIONS : Aspiration MEDICAL HISTORY : Cerebral palsy, seizure SURGICAL HISTORY : J tube ENCOUNTER: Subsequent ACUITY: 4 - 6 days PAIN SCORE: Non-responsive. LOCATION: Bilateral chest FINDINGS: The cardiac silhouette is normal in transverse diameter. Support lines and tubes are in satisfactory position. Nasogastric tube is within the stomach There is patchy alveolar disease bilaterally compati ble with edema or pneumonia. There has been no significant change when compared to the prior exam. CONCLUSION: 1. Patchy alveolar disease characteristic of edema or pneumonia. There has been no significant thomas e when compared to the prior exam. Young Queen MD on May 04, 2017 at 6:39 Board Certified Radiologist. This report was verified electronically.
[2017-05-04 06:46] LABS: HEMATOCRIT 26.2 % (39.0-51.0); MEAN CELL VOLUME 79.5 FL (80.0-100.0); MEAN CORPUSCULAR HEMOGLOBIN 26.3 PG (27.0-34.0); MEAN CORPUSCULAR HGB CONC 33.1 % (32.0-36.0); PLATELET COUNT 198 TH/MM3 (150-450); RED BLOOD COUNT 3.29 MIL/MM3 (4.50-5.90); RED CELL DISTRIBUTION WIDTH 18.9 % (11.6-17.2); WHITE BLOOD COUNT 8.7 TH/MM3 (4.0-11.0)
[2017-05-04 06:50] LABS: HEMO FLAGS AUTO DIFF
[2017-05-04 08:12] LABS: EOSINOPHILS 10 % (0-4); NEUTROPHIL # MANUAL DIFF 4.4 TH/MM3 (1.8-7.7); POLYS (SEG NEUTROPHILS) 50 % (16-70); WBC DIFF SAMPLE 100
[2017-05-04 08:13] LABS: PLATELET ESTIMATE SMEAR NORMAL (NORMAL); PLATELET MORPHOLOGY NORMAL (NORMAL); SCAN/DIFF FINAL DIFF MANUAL; TARGET CELLS 1+ (NORMAL)
[2017-05-04] MEDS: DEXT 5%-NACL 0.45% 1000 ML INJ 1,000 ML IV SCH ×2 (08:16→23:20)
[2017-05-04] MEDS: POLYETHYLENE GLYCOL 17 GM PKG DOBHOFF SCH (08:31)
[2017-05-04] MEDS: SODIUM CHLORIDE 0.9% FLUSH 10 ML FLUSH IV FLUSH SCH ×2 (08:32→21:00)
[2017-05-04] MEDS: PHENYTOIN SUSP 100 MG/4 ML CUP PO SCH ×2 (08:49→21:06)
[2017-05-04] MEDS: PANTOPRAZOLE SODIUM 40 MG VIAL IV PUSH SCH ×3 (08:49→21:05)
[2017-05-04] MEDS: FLUDROCORTISONE ACETATE 0.1 MG TAB PO SCH (08:50)
[2017-05-04] MEDS: CHLORHEXIDINE 0.12% (ORAL KIT) 15 ML CUP MT SCH ×2 (08:51→21:05)
[2017-05-04] MEDS: TOPIRAMATE 100 MG TAB PO SCH ×2 (09:04→21:06)
--- NOTE | 2017-05-04 09:07 | HHI.CCPN ---
Subjective Remarks/Hospital Course The patient is a 36-year-old male with past medical history of seizure disorder , cerebral palsy, previous G-J tube placement for nutritional support who presented to the [facility] Emergency Department by his mom for intractable nausea and vomiting. No history of any fever or constitutional symptoms. In addition, no history of any abdominal pain. On arrival to the emergency room, he was tachycardiac with heart rate of 107-112 and had a blood pressure of 116/64. His laboratory data showed acute kidney injury with creatinine level 1.89, lactic acidemia with a lactic acid level of 4.1. In addition, the patient was found to have leukocytosis with a WBC of 20. Chest x- ray in the emergency room showed no acute cardiopulmonary disease. The patient underwent a KUB of the abdomen which showed G-tube in good position, moderate air throughout the colon. He subsequently underwent CT scan of the abdomen and pelvis which showed jejunostomy tube in the stomach, moderate gaseous distension of the distal small bowel and colon and findings suggestive of ileus. In the emergency room, he was given 2 liters of crystalloids, Zosyn, Zofran and Cerebyx. His Dilantin level measured at 0.6. The patient was initially admitted to [facility] [place] hospital[place] service. However critical care medicine was consulted by Dr. Rojas for possible aspiration. When seen, the patient is on room air oxygen with a saturation of 94% with blood pressure 113/ 72 and a pulse of 109. IR was consulted by [facility] for repositioning of the J- tube as it is coiled in the stomach. 04/29 Patient was given 2L NS boluses overnight for tachycardia. Afebrile. WBC is trending down. 04/30 Patient was placed on BIPAP last night for desaturation. WBC is trending down, afebrile. 05/01 Patient s/p G-J tune exchange by IR yesterday. Afebrile, tachycardic, for EGD today. 05/02: New upper GI bleeding and preceding aspiration pneumonia. Requires intubation for airway protection. No iv access, will use IM versed. 05/03: Gas exchange acceptable. Will push for quick extubation. Basilar infiltrates clearing. Improved hydration. 05/04: CXR clearing, leukocytosis resolved. More alert. Objective Vital Signs Date Time Temp Pulse Resp B/P Pulse Ox O2 Delivery O2 Flow Rate FiO2 05/04/17 08:25 40 05/04/17 08:24 100 05/04/17 08:00 42 05/04/17 08:00 97.6 14 112/56 05/01/17 20:13 Nasal Cannula 2.00 Intake and Output 05/03/17 05/03/17 05/04/17 08:00 16:00 00:00 Intake Total 734 ml 907 ml 813 ml Output Total 600 ml 475 ml 1100 ml Balance 134 ml 432 ml -287 ml Result Diagram: 05/04/17 0557 05/02/17 0920 Imaging Last Impressions Tube Change 04/30/17 0000 Signed Impressions: Service Date/Time: Sunday, April 30, 2017 16:39 - CONCLUSION: Uncomplicated gastrojejunostomy tube exchange as above. Jose Allison MD Chest X-Ray 04/30/17 0000 Signed Impressions: Service Date/Time: Sunday, April 30, 2017 08:03 - CONCLUSION: Stable chest x-ray with right lower lung zone airspace consolidation and left lower lobe consolidation versus atelectasis. Mg Darling MD Abdomen X-Ray 04/29/17 0600 Signed Impressions: Service Date/Time: Saturday, April 29, 2017 03:22 - CONCLUSION: Moderate amount air throughout the colon. G-tube in good position Devin Hassan MD Abdomen/Pelvis CT 04/28/17 0600 Signed Impressions: Service Date/Time: Friday, April 28, 2017 06:24 - CONCLUSION: 1. Abnormal lungs suggesting either failure or infiltrate. 2. Tube that may be a jejunostomy tube in the stomach. There is moderate gaseous distention of distal small bowel and colon with liquid stool in the ascending colon and minimal solid stool in the descending colon, all suggestive of an ileus. The etiology of this is not readily apparent. I do see a patent SMA and SMV. Shalom Espinal MD FACR Objective Remarks GENERAL: Patient is 36 yo lying in bed in NAD SKIN: Warm and dry. HEAD: Normocephalic. EYES: No scleral icterus, no drainage. NECK: Supple, trachea midline. Orally intubated. CARDIOVASCULAR: RRR, no murmurs, gallops, or rubs. No JVD. RESPIRATORY: Bilateral breath sounds. Comfortable pattern. Minimal secretions. GASTROINTESTINAL: Abdomen soft, non-tender, nondistended. PEG in place. MUSCULOSKELETAL: No cyanosis, or edema. Well perfused. Neuro: Contracted, non-verbal. Cerebral palsy. Opens eyes, tracks. A/P Assessment and Plan 1. Resp Failure 2. Gram positive bacteremia 3. Leukocytosis. 4. Lactic acidemia. 5. Acute kidney injury.- resolved 6. Ileus. 7. Malfunctioning J tube. 8. History of cerebral palsy. 9. History of seizures. 10. UGI bleeding. Plan Neuro: Monitor neuro status closely, minimize sedation. Continue with antiseizure meds. on Dilantin 100 mg BID. Dilantin level is 0.6. On Topamax 100 mg BID Pulm: PRVC vent mode. Bronchodilators. CV:Monitor HR and BP keep MAP>65mmHg. On Lopressor 25 mg BID Continue with Florinef 0.2 mg daily. Aspirin 81 mg daily. : Monitor renal function, I/O's and avoid nephrotoxins. NS@50ml/hr. GI: On Protonix 40 mg daily for GI prophylaxis. GI is following s/p G-J tube exchange by IR 04/30, for therapeutic EGD today ID: Continue with abx(azithromycin, Zosyn, Vanco) WBC is trending down. Monitor for signs of infection(fever and WBCs). Check BC x 2 sets today 04/28 BC 2/4 sets: Staph Epi, coag negative staph, urine cx: No growth 04/29 BC: GPC 2 /4 bottles Heme: Monitor CBC Endo: SSI with Accu-Chek for glycemic control GI prophylaxis with Protonix 40 mg daily. DVT prophylaxis with SCDs. Overall impression: Improved respiratory status. Will push to extubate. Sanket Estrada MD May 04, 2017 09:07
[2017-05-04] MEDS: ASPIRIN EC 81 MG TABEC PO SCH (09:30)
[2017-05-04] MEDS: HEPARIN SODIUM - SQ 10,000 UNITS/ML VIAL SQ SCH ×2 (09:30→21:06)
--- NOTE | 2017-05-04 12:55 | HHI.GIFU ---
Subjective Remarks Resting in bed. No distress. NGT with moderate-large amount yellowish- what appears to be oral secretions mixed with TF. Nurse does report that the TF was going to the G tube when she came in. This has since been changed to the J tube. No active bleeding. (Tabatha Garza) Objective Vitals I&O Vital Signs Date Time Temp Pulse Resp B/P Pulse Ox O2 Delivery O2 Flow Rate FiO2 05/04/17 12:00 98.1 60 12 134/65 100 05/04/17 12:00 40 05/04/17 11:26 98 40 05/04/17 08:25 40 05/04/17 08:24 100 40 05/04/17 08:20 100 40 05/04/17 08:00 42 05/04/17 08:00 40 05/04/17 08:00 97.6 42 14 112/56 100 05/04/17 04:10 100 40 05/04/17 04:00 40 05/04/17 04:00 97.2 58 14 107/53 100 05/04/17 04:00 57 05/04/17 02:00 62 05/04/17 02:00 98.0 62 14 112/55 100 05/04/17 00:12 100 40 05/04/17 00:00 40 05/03/17 20:13 98 40 05/03/17 20:00 92 05/03/17 20:00 40 05/03/17 20:00 97.6 92 14 120/60 100 05/03/17 18:03 100 05/03/17 18:03 40 05/03/17 18:03 97.9 94 12 110/63 100 05/03/17 16:49 100 40 I/O 05/03/17 05/03/17 05/03/17 05/04/17 05/04/17 05/04/17 07:00 15:00 23:00 07:00 15:00 23:00 Intake Total 734 ml 907 ml 813 ml 970 ml Output Total 600 ml 475 ml 1100 ml 1150 ml Balance 134 ml 432 ml -287 ml -180 ml Intake Oral 0 ml 0 ml 0 ml 0 ml IV Total 734 ml 907 ml 753 ml 910 ml Other 60 ml 60 ml Output Urine Total 300 ml 225 ml 300 ml 500 ml Gastric Drainage Total 300 ml 250 ml 800 ml 650 ml # Bowel Movements 1 2 1 Laboratory Laboratory Tests Test 05/04/17 05:57 White Blood Count 8.7 Red Blood Count 3.29 Hemoglobin 8.7 Hematocrit 26.2 Mean Corpuscular Volume 79.5 Mean Corpuscular Hemoglobin 26.3 Mean Corpuscular Hemoglobin 33.1 Concent Red Cell Distribution Width 18.9 Platelet Count 198 Mean Platelet Volume 8.3 Neutrophils (%) (Auto) Lymphocytes (%) (Auto) Monocytes (%) (Auto) Eosinophils (%) (Auto) Basophils (%) (Auto) Neutrophils # (Auto) Lymphocytes # (Auto) Monocytes # (Auto) Eosinophils # (Auto) Basophils # (Auto) CBC Comment AUTO DIFF Differential Total Cells 100 Counted Neutrophils % (Manual) 50 Lymphocytes % 38 Monocytes % 2 Eosinophils % 10 Neutrophils # (Manual) 4.4 Differential Comment FINAL DIFF MANUAL Platelet Estimate NORMAL Platelet Morphology Comment NORMAL Target Cells 1+ Date/Time Procedure Status Source Growth 05/03/17 14:54 Aerobic Blood Culture - Preliminary Resulted Blood Peripheral NO GROWTH IN 1 DAY 05/03/17 14:54 Anaerobic Blood Culture - Preliminary Resulted Blood Peripheral NO GROWTH IN 1 DAY Imaging Last Impressions Chest X-Ray 05/04/17 0400 Signed Impressions: Service Date/Time: Thursday, May 04, 2017 04:58 - CONCLUSION: 1. Patchy alveolar disease characteristic of edema or pneumonia. There has been no significant change when compared to the prior exam. Young Queen MD Abdomen/Pelvis CT 05/02/17 0000 Signed Impressions: Service Date/Time: Tuesday, May 02, 2017 17:14 - CONCLUSION: 1. Persistent dilatation of the small bowel which is now more fluid-filled than on the prior study. No inflammatory process or stranding lesion observed. No free air. Small amount of free fluid. 2. Development of a small right effusion. 3. Bibasilar pulmonary infiltrates. 4. Hiatal hernia. 5. Prior splenectomy. Gaston Wagner Jr., MD Tube Change 04/30/17 0000 Signed Impressions: Service Date/Time: Sunday, April 30, 2017 16:39 - CONCLUSION: Uncomplicated gastrojejunostomy tube exchange as above. Jose Allison MD Abdomen X-Ray 04/29/17 0600 Signed Impressions: Service Date/Time: Saturday, April 29, 2017 03:22 - CONCLUSION: Moderate amount air throughout the colon. G-tube in good position Devin Hassan MD Physical Exam HEENT: Normocephalic; atraumatic CHEST: Resp. even, unlabored, course breath sounds, OETT to vent CARDIAC: RRR ABDOMEN: Soft, mildly distended, no hepatosplenomegaly; bowel sounds hypoactive. GJ tube with TF to J tube. NGT with large amount yellowish secretions material. 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 S/P EGD (05/02/17)-----> 1. G/j tube in place, hiatal hernia, dilated esophagus, esophagitis distal esophagus-biopsy, some gastric juice sitting in esophagus / stomach-suctioned suggesting poor motility 2. Retroflexed views revealed a hiatal hernia. Pathology esophagus with acute ulcerative and chronic esophagitis, fungal hyphal and yeast forms consistent with daryl are present (Gomori methenamine silver stain). Pt started vomiting reddish brown secretions Sunday night/ morning. NG was placed in esophagus and immediately suctioned large amount of reddish brown secretions. He was tx to ISC. S/P EGD (05/03/17)----> 1. Severe esophagitis j shape stomach g/j tube in stomach going into pylorus-could not advance into duodenum no active bleeding 2. Retroflexed views revealed a hiatal hernia. NGT with large amount of bilious material without bleeding. Abdomen/Pelvis CT (05/02/17)----> 1. Persistent dilatation of the small bowel which is now more fluid-filled than on the prior study. No inflammatory process or stranding lesion observed. No free air. Small amount of free fluid. 2. Development of a small right effusion. 3. Bibasilar pulmonary infiltrates. 4. Hiatal hernia. 5. Prior splenectomy. Trickle feeds were started, but the day nurse came in with this going to the G tube and therefore changed this to the J tube. The ngt is suctioning what appears to be TF. He had a significant drop from 05/02 10.3/32.4 to 8.7/26.2, but there is no signs of active bleeding. - Colonic Ileus with n/v and constipation. Abdomen/Pelvis CT (04/28/17)----> 1. Abnormal lungs suggesting either failure or infiltrate. 2. Tube that may be a jejunostomy tube in the stomach. There is moderate gaseous distention of distal small bowel and colon with liquid stool in the ascending colon and minimal solid stool in the descending colon, all suggestive of an ileus. The etiology of this is not readily apparent. I do see a patent SMA and SMV. Abdomen X-Ray ()----> Moderate amount air throughout the colon. G-tube in good position. (+) BM.Rpt. CT as above. Bethanechol (reglan has multiple interactions listed with psych meds), Miralax daily. - Daryl esophagitis. Nystatin (05/03) - Leukocytosis/Bacteremia. BCX (04/28) with staph coagulase negative, staphylococcus epidermidis. Rpt culture (04/29/17) gram positive coci, staph coag neg. BCx from (05/01) Staph Sp Coagulase negative. Bcx (05/03) no growth 1 day Vancomycin - SIM with electrolyte abnormalities, per CCM - Hx cerebral palsy, development delay, sz disorder PLAN: - Glucerna 1.5 @ 10cc via J tube for now - H/H now- if no drop, will slowly increase TF via J tube. - Cont. Nystatin (05/03) - Cont. Protonix 40mg IV BID - EES not able to be ordered in EMR- out of stock - Bethanechol - Miralax - Monitor HH, transfuse as needed - Notify GI of active bleeding - Supportive care - Further recommendations to follow based on results of above. - Pt seen and examined by Dr. Watts and myself and this note is written on her behalf (Tabatha Garza) Physician Comments seen, examined agree with above more awake, no tf aspirate since switching to j tube increase secretions possible extubation in am (Shayla Watts MD) Tabatha Garza May 04, 2017 12:55 Shayla Watts MD May 04, 2017 20:13
[2017-05-04] MEDS: VANCOMYCIN INJ 750 MG in SODIUM CHLOR 0.9% 250 ML INJ 250 ML IV SCH (13:47)
--- NOTE | 2017-05-04 15:08 | HHI.IDPN ---
Note Infectious Disease Note ID coverage. Patient seen and examined. Notes reviewed. On the ventilator. Awake. no distress. Afebrile. D/W RN. Antibiotics Vancomycin and Zosyn. Past Medical History reviewed. Allergies: Coded Allergies: *MDRO Multi-Drug Resistant Organism (Verified Adverse Reaction, Unknown, ) MDR Pseudomonas (sputum) - 11/09/16 OBJECTIVE: Vital Signs Date Time Temp Pulse Resp B/P Pulse Ox O2 Delivery O2 Flow Rate FiO2 05/04/17 12:00 98.1 60 12 134/65 100 05/04/17 12:00 40 05/04/17 11:26 98 40 05/04/17 08:25 40 05/04/17 08:24 100 40 05/04/17 08:20 100 40 05/04/17 08:00 42 05/04/17 08:00 40 05/04/17 08:00 97.6 42 14 112/56 100 05/04/17 04:10 100 40 05/04/17 04:00 40 05/04/17 04:00 97.2 58 14 107/53 100 05/04/17 04:00 57 05/04/17 02:00 62 05/04/17 02:00 98.0 62 14 112/55 100 05/04/17 00:12 100 40 05/04/17 00:00 40 05/03/17 20:13 98 40 05/03/17 20:00 92 05/03/17 20:00 40 05/03/17 20:00 97.6 92 14 120/60 100 05/03/17 18:03 100 05/03/17 18:03 40 05/03/17 18:03 97.9 94 12 110/63 100 05/03/17 16:49 100 40 Laboratory Tests Test 05/04/17 05:57 White Blood Count 8.7 TH/MM3 Red Blood Count 3.29 MIL/MM3 Hemoglobin 8.7 GM/DL Hematocrit 26.2 % Mean Corpuscular Volume 79.5 FL Mean Corpuscular Hemoglobin 26.3 PG Mean Corpuscular Hemoglobin 33.1 % Concent Red Cell Distribution Width 18.9 % Platelet Count 198 TH/MM3 Mean Platelet Volume 8.3 FL Neutrophils (%) (Auto) % Lymphocytes (%) (Auto) % Monocytes (%) (Auto) % Eosinophils (%) (Auto) % Basophils (%) (Auto) % Neutrophils # (Auto) TH/MM3 Lymphocytes # (Auto) TH/MM3 Monocytes # (Auto) TH/MM3 Eosinophils # (Auto) TH/MM3 Basophils # (Auto) TH/MM3 CBC Comment AUTO DIFF Differential Total Cells 100 Counted Neutrophils % (Manual) 50 % Lymphocytes % 38 % Monocytes % 2 % Eosinophils % 10 % Neutrophils # (Manual) 4.4 TH/MM3 Differential Comment FINAL DIFF MANUAL Platelet Estimate NORMAL Platelet Morphology Comment NORMAL Target Cells 1+ Microbiology Date/Time Procedure Status Source Growth 05/01/17 15:11 Aerobic Blood Culture - Preliminary Resulted Blood Peripheral NO GROWTH IN 3 DAYS 05/01/17 15:11 Anaerobic Blood Culture - Preliminary Resulted Blood Peripheral NO GROWTH IN 3 DAYS 05/03/17 14:50 Aerobic Blood Culture - Preliminary Resulted Blood Peripheral NO GROWTH IN 1 DAY 05/03/17 14:50 Anaerobic Blood Culture - Preliminary Resulted Blood Peripheral NO GROWTH IN 1 DAY 05/03/17 14:54 Aerobic Blood Culture - Preliminary Resulted Blood Peripheral NO GROWTH IN 1 DAY 05/03/17 14:54 Anaerobic Blood Culture - Preliminary Resulted Blood Peripheral NO GROWTH IN 1 DAY Imaging Chest X-Ray 05/04/17 0400 Signed Impressions: Service Date/Time: Thursday, May 04, 2017 04:58 - CONCLUSION: 1. Patchy alveolar disease characteristic of edema or pneumonia. There has been no significant change when compared to the prior exam. Young Queen MD PHYSICAL EXAM GENERAL: Awake, NAD. SKIN: No rash. HEENT: EOMI, No icterus. Intubated. NECK: supple. No swelling. CHEST: basilar rhonchi. CARDIAC: nl S1S2. No murmur. ABDOMEN: Soft, no tenderness. EXTREMITIES: contractures, No edema. Peripheral lines without evidence of infection. Assessment & Plan Possible sepsis on admission. Possible aspiration pneumonia. Staph bacteremia ID pending (No CL or PICC on admission) Likely contaminant as different species. But given multiple hospitalizations and Lines r/o endocarditis. Micro reports staph epi - work up in progress. Cerebral Palsy Seizure disorder. Recs: Continue Zosyn IV (cover suspected aspiration Pneumonia. Prior PSAE history) Continue Vanco IV (target trough 15-20 for bacteremia) for now. Follow 2D ECHO. Follow cultures. Follow clinically. Mendoza Armando MD May 04, 2017 15:08
[2017-05-04 17:43] LABS: HEMATOCRIT 30.5 % (39.0-51.0)
--- NOTE | 2017-05-04 17:52 | ECHRPT ---
Indication: sepsis post endocarditis CONCLUSIONS The left ventricular systolic function is normal with an estimated ejection fraction in the range of 60-65%. There is trace tricuspid valve regurgitation. Mild pulmonary valve regurgitation. BP: 112 / 56 HR: 42 Rhythm: MEASUREMENTS (Male / Female) Normal Values Technical Quality: 2D ECHO LV Diastolic Diameter PLAX 3.3 cm 4.2 - 5.9 / 3.9 - 5.3 cm LV Systolic Diameter PLAX 2.2 cm IVS Diastolic Thickness 1.0 cm 0.6 - 1.0 / 0.6 - 0.9 cm LVPW Diastolic Thickness 0.8 cm 0.6 - 1.0 / 0.6 - 0.9 cm LV Relative Wall Thickness 0.5 RV Internal Dim ED PLAX 2.8 cm M-MODE Aortic Root Diameter MM 2.7 cm LA Systolic Diameter MM 3.7 cm LA Ao Ratio MM 1.4 AV Cusp Separation MM 1.8 cm DOPPLER Mitral E Point Velocity 99.1 cm/s Mitral A Point Velocity 65.2 cm/s Mitral E to A Ratio 1.5 FINDINGS LEFT VENTRICLE Normal left ventricular size and wall thickness. The left ventricular systolic function is normal with an estimated ejection fraction in the range of 60-65%. RIGHT VENTRICLE Normal right ventricular size and systolic function. LEFT ATRIUM The left atrial size is normal. RIGHT ATRIUM The right atrial size is normal. ATRIAL SEPTUM The interatrial septum not well visualized. AORTA The aortic root and proximal ascending aorta are normal in size on limited imaging. MITRAL VALVE Structurally normal mitral valve. No mitral valve stenosis or regurgitation. AORTIC VALVE Trileaflet aortic valve. No aortic valve regurgitation. No aortic valve stenosis. TRICUSPID VALVE Structurally normal tricuspid valve. There is trace tricuspid valve regurgitation. No tricuspid valve stenosis. PULMONARY VALVE The pulmonary valve is not well visualized. Mild pulmonary valve regurgitation. VESSELS The inferior vena cava is normal in size. PERICARDIUM No pericardial effusion. Severino Amador DO (Electronically Signed) Final Date:04 May 2017 17:50
[2017-05-04 17:58] LABS: REVIEW FLAG FINAL
[2017-05-05] VITALS (14 sets, daily range): BP systolic 120–140; BP diastolic 56–77; PULSE 44–67; RESP 12–30; TEMP 97.3–99.2; O2SAT 98–100
[2017-05-05] MEDS: INSULIN NovoLIN REGULAR SUPPLEMENTAL SCALE SQ SCH ×6 (03:00→23:00)
[2017-05-05] MEDS: PIPERACIL-TAZO 3.375 GM PREMIX 50 ML IV SCH ×2 (03:35→08:59)
[2017-05-05] MEDS: METOPROLOL TARTRATE 25 MG TAB PO SCH ×2 (06:00→17:58)
[2017-05-05] MEDS: SODIUM CHLORIDE 0.9% FLUSH 10 ML FLUSH IV FLUSH SCH ×2 (07:10→20:18)
[2017-05-05] MEDS: NYSTATIN 500,000 UNIT TAB PO SCH ×3 (07:30→21:45)
[2017-05-05] MEDS: BETHANECHOL CHL 25 MG TAB PEG SCH ×3 (07:31→21:45)
[2017-05-05] MEDS: HEPARIN SODIUM - SQ 10,000 UNITS/ML VIAL SQ SCH ×2 (08:58→20:19)
[2017-05-05] MEDS: CHLORHEXIDINE 0.12% (ORAL KIT) 15 ML CUP MT SCH ×2 (08:58→20:00)
[2017-05-05] MEDS: ASPIRIN EC 81 MG TABEC PO SCH (08:59)
[2017-05-05] MEDS: PHENYTOIN SUSP 100 MG/4 ML CUP PO SCH ×2 (08:59→20:22)
[2017-05-05] MEDS: FLUDROCORTISONE ACETATE 0.1 MG TAB PO SCH (08:59)
[2017-05-05] MEDS: POLYETHYLENE GLYCOL 17 GM PKG DOBHOFF SCH (08:59)
[2017-05-05] MEDS: PANTOPRAZOLE SODIUM 40 MG VIAL IV PUSH SCH ×2 (08:59→20:18)
[2017-05-05] MEDS: TOPIRAMATE 100 MG TAB PO SCH ×2 (09:02→20:22)
--- NOTE | 2017-05-05 10:53 | HHI.PR ---
Subjective Remarks This report is in ERROR Please disregard this report and all prior copies ! This report is in ERROR Please disregard this report and all prior copies ! This report is in ERROR Please disregard this report and all prior copies ! Objective Vitals Vital Signs Date Time Temp Pulse Resp B/P Pulse Ox O2 Delivery O2 Flow Rate FiO2 05/05/17 08:10 30 05/05/17 08:10 100 30 05/05/17 08:00 61 05/05/17 08:00 40 05/05/17 08:00 97.3 61 23 140/73 100 05/05/17 06:09 100 40 05/05/17 04:27 100 40 05/05/17 04:00 44 05/05/17 04:00 98.9 44 12 121/57 100 05/05/17 04:00 40 05/05/17 00:22 100 40 05/05/17 00:00 40 05/05/17 00:00 52 05/05/17 00:00 99.2 52 12 134/77 100 05/04/17 20:00 48 05/04/17 20:00 100 40 05/04/17 20:00 98.0 51 12 135/63 100 05/04/17 20:00 40 05/04/17 16:00 99.6 54 12 139/71 100 05/04/17 16:00 40 05/04/17 15:30 100 40 05/04/17 12:00 98.1 60 12 134/65 100 05/04/17 12:00 40 05/04/17 11:26 98 40 I/O 05/04/17 05/04/17 05/04/17 05/05/17 05/05/17 05/05/17 07:00 15:00 23:00 07:00 15:00 23:00 Intake Total 970 ml 1188 ml 897 ml 1025 ml Output Total 1150 ml 550 ml 350 ml 300 ml Balance -180 ml 638 ml 547 ml 725 ml Intake Oral 0 ml 0 ml IV Total 910 ml 1137 ml 740 ml 932 ml Tube Feeding 51 ml 57 ml 93 ml Tube Irrigant 100 ml Other 60 ml Output Urine Total 500 ml 350 ml 250 ml 300 ml Gastric Drainage Total 650 ml 200 ml 100 ml # Bowel Movements 1 2 1 Result Diagram: 05/04/17 1716 05/02/17 0920 Imaging Last Impressions Chest X-Ray 05/04/17 0400 Signed Impressions: Service Date/Time: Thursday, May 04, 2017 04:58 - CONCLUSION: 1. Patchy alveolar disease characteristic of edema or pneumonia. There has been no significant change when compared to the prior exam. Young Queen MD Abdomen/Pelvis CT 05/02/17 0000 Signed Impressions: Service Date/Time: Tuesday, May 02, 2017 17:14 - CONCLUSION: 1. Persistent dilatation of the small bowel which is now more fluid-filled than on the prior study. No inflammatory process or stranding lesion observed. No free air. Small amount of free fluid. 2. Development of a small right effusion. 3. Bibasilar pulmonary infiltrates. 4. Hiatal hernia. 5. Prior splenectomy. Gaston Wagner Jr., MD Tube Change 04/30/17 0000 Signed Impressions: Service Date/Time: Sunday, April 30, 2017 16:39 - CONCLUSION: Uncomplicated gastrojejunostomy tube exchange as above. Jose Allison MD Abdomen X-Ray 04/29/17 0600 Signed Impressions: Service Date/Time: Saturday, April 29, 2017 03:22 - CONCLUSION: Moderate amount air throughout the colon. G-tube in good position Devin Hassan MD Medications and IVs Current Medications Medications (Trade) Dose Ordered Sig/Carlotta Route Start Time Stop Time Status Last Admin (NS Flush) 2 ml UNSCH PRN IV FLUSH 04/28/17 08:30 (NS Flush) 2 ml BID IV FLUSH 04/28/17 09:00 05/05/17 07:10 (Zofran Inj) 4 mg Q6H PRN IVP 04/28/17 08:30 04/28/17 10:15 (Heparin Inj) 5,000 units Q12H SQ 04/28/17 08:30 05/05/17 08:58 (Narcan Inj) 0.4 mg UNSCH PRN IV 04/28/17 08:30 (Milk Of Magnesia Liq) 30 ml Q12H PRN PO 04/28/17 08:30 (Senokot) 17.2 mg Q12H PRN PO 04/28/17 08:30 (Dulcolax Supp) 10 mg DAILY PRN RECTAL 04/28/17 08:30 (Lactulose Liq) 30 ml DAILY PRN PO 04/28/17 08:30 (Xanax) 0.5 mg Q8H PRN PO 04/28/17 10:15 05/01/17 18:56 (Ecotrin Ec) 81 mg DAILY PO 04/29/17 09:00 05/05/17 08:59 (Florinef) 0.2 mg DAILY PO 04/29/17 09:00 05/05/17 08:59 (Dilantin Liq) 100 mg BID PO 04/28/17 21:00 05/05/17 08:59 (Topamax) 100 mg BID PO 04/28/17 21:00 05/05/17 09:02 (Desyrel) 25 mg DAILY PRN PO 04/28/17 10:15 Miscellaneous 1 ea 1 ea UNSCH PRN OTHER 04/28/17 10:30 (Zosyn 3.375 Gm Premix) 50 ml @ 100 mls/hr Q6H IV 04/28/17 15:00 05/05/17 08:59 (D50w (Vial) Inj) 50 ml UNSCH PRN IV 04/28/17 14:15 (Glucagon Inj) 1 mg UNSCH PRN OTHER 04/28/17 14:15 (NovoLIN R SUPPLEMENTAL SCALE) 1 Q4H SQ 04/28/17 15:00 (Protonix Inj) 40 mg Q24H IV PUSH 04/28/17 16:00 05/04/17 15:07 Miscellaneous Information Patient in critical care unit? Ass... Q361D .XX 04/28/17 21:15 (Haldol Inj) 5 mg Q4H PRN IV 04/28/17 23:30 04/29/17 21:59 Lorazepam 0.5 mg 0.5 mg Q4H PRN IV 04/28/17 23:45 05/01/17 09:46 Pharmacy Profile Note 0 ml @ 0 mls/hr UNSCH OTHER 04/29/17 09:15 (D5W-1/2 NS 1000 ml Inj) 1,000 ml @ 75 mls/hr [id number] IV 04/29/17 10:00 05/04/17 08:16 (Lopressor) 25 mg Q12H PO 04/29/17 18:00 05/04/17 18:36 (Miralax) 17 gm DAILY DOBHOFF 04/30/17 17:00 05/03/17 08:30 (Urecholine) 12.5 mg Q8HR PEG 04/30/17 22:00 05/05/17 07:31 Chlorhexidine Gluconate 15 ml 15 ml BID@08,20 MT 05/02/17 20:00 05/05/17 08:58 Propofol 100 ml @ 0 mls/hr TITRATE IV 05/02/17 08:45 05/02/17 23:55 (Vancomycin Inj/ NS 250 ml Inj) 257.5 ml @ 256.5 mls/ hr Q24H IV 05/02/17 14:00 05/04/17 13:47 Miscellaneous Information SPECIFIC LAB TO BE DRAWN:VANCOMYCIN TROUGH DATE TO... ONCE ONCE .XX 05/05/17 13:45 05/05/17 13:46 (Mycostatin) 500,000 units Q8HR PO 05/03/17 22:00 05/05/17 07:30 (Protonix Inj) 40 mg Q12HR IV PUSH 05/03/17 21:00 05/05/17 08:59 A/P Assessment and Plan Acute respiratory failure S/p intubation/ extubation. - continue antibiotics. - oxygen and nebs as needed. CV:Monitor HR and BP keep MAP>65mmHg. On Lopressor 25 mg BID Continue with Florinef 0.2 mg daily. Aspirin 81 mg daily. Ileus/ GIB/ Esophagitis S/p G-J tube exchange by IR 04/30GI consult appreciated. S/p EGD which showed: Severe esophagitis j shape stomach g/j tube in stomach going into pylorus-could not advance into duodenum no active bleeding. - On Protonix. - continue nystatin. - continue bethanechol. - follow CBC and transfuse as needed. - follow up with GI. Bacteremia 04/28 BC 2/4 sets: Staph Epi, coag negative staph; 04/29 BC: GPC 2 /4 bottles. ID consult appreciated. - Continue with abx (azithromycin, Zosyn, Vanco). - follow repeat blood cultures. History of seizures No seizure activity. - Monitor neuro status closely, minimize sedation. - Continue with antiseizure meds. On Dilantin 100 mg BID. On Topamax 100 mg BID. - seizure precautions. DVT prophylaxis with SCDs. Ayaan Ordoñez DO May 05, 2017 10:53
--- NOTE | 2017-05-05 11:05 | HHI.CCPN ---
Subjective Remarks/Hospital Course The patient is a 36-year-old male with past medical history of seizure disorder , cerebral palsy, previous G-J tube placement for nutritional support who presented to the [facility] Emergency Department by his mom for intractable nausea and vomiting. No history of any fever or constitutional symptoms. In addition, no history of any abdominal pain. On arrival to the emergency room, he was tachycardiac with heart rate of 107-112 and had a blood pressure of 116/64. His laboratory data showed acute kidney injury with creatinine level 1.89, lactic acidemia with a lactic acid level of 4.1. In addition, the patient was found to have leukocytosis with a WBC of 20. Chest x- ray in the emergency room showed no acute cardiopulmonary disease. The patient underwent a KUB of the abdomen which showed G-tube in good position, moderate air throughout the colon. He subsequently underwent CT scan of the abdomen and pelvis which showed jejunostomy tube in the stomach, moderate gaseous distension of the distal small bowel and colon and findings suggestive of ileus. In the emergency room, he was given 2 liters of crystalloids, Zosyn, Zofran and Cerebyx. His Dilantin level measured at 0.6. The patient was initially admitted to [facility] under the hospitalist service. However critical care medicine was consulted by Dr. Rojas for possible aspiration. When seen, the patient is on room air oxygen with a saturation of 94% with blood pressure 113/ 72 and a pulse of 109. IR was consulted by [facility] for repositioning of the J- tube as it is coiled in the stomach. 04/29 Patient was given 2L NS boluses overnight for tachycardia. Afebrile. WBC is trending down. 04/30 Patient was placed on BIPAP last night for desaturation. WBC is trending down, afebrile. 05/01 Patient s/p G-J tune exchange by IR yesterday. Afebrile, tachycardic, for EGD today. 05/02: New upper GI bleeding and preceding aspiration pneumonia. Requires intubation for airway protection. No iv access, will use IM versed. 05/03: Gas exchange acceptable. Will push for quick extubation. Basilar infiltrates clearing. Improved hydration. 05/04: CXR clearing, leukocytosis resolved. More alert. 05/05: afebrile. more awake. NGT self-d/c'd overnight. Blood cultures from 05/03 NGTD, previous BCx with coag negative staph. Objective Vital Signs Date Time Temp Pulse Resp B/P Pulse Ox O2 Delivery O2 Flow Rate FiO2 05/05/17 08:10 30 05/05/17 08:10 100 05/05/17 08:00 61 05/05/17 08:00 97.3 23 140/73 05/01/17 20:13 Nasal Cannula 2.00 Intake and Output 05/04/17 05/04/17 05/05/17 08:00 16:00 00:00 Intake Total 970 ml 1188 ml 897 ml Output Total 1150 ml 550 ml 350 ml Balance -180 ml 638 ml 547 ml Result Diagram: 05/04/17 1716 05/02/17 0920 Imaging Last Impressions Tube Change 04/30/17 0000 Signed Impressions: Service Date/Time: Sunday, April 30, 2017 16:39 - CONCLUSION: Uncomplicated gastrojejunostomy tube exchange as above. Jose Allison MD Chest X-Ray 04/30/17 0000 Signed Impressions: Service Date/Time: Sunday, April 30, 2017 08:03 - CONCLUSION: Stable chest x-ray with right lower lung zone airspace consolidation and left lower lobe consolidation versus atelectasis. Mg Darling MD Abdomen X-Ray 04/29/17 0600 Signed Impressions: Service Date/Time: Saturday, April 29, 2017 03:22 - CONCLUSION: Moderate amount air throughout the colon. G-tube in good position Devin Hassan MD Abdomen/Pelvis CT 04/28/17 0600 Signed Impressions: Service Date/Time: Friday, April 28, 2017 06:24 - CONCLUSION: 1. Abnormal lungs suggesting either failure or infiltrate. 2. Tube that may be a jejunostomy tube in the stomach. There is moderate gaseous distention of distal small bowel and colon with liquid stool in the ascending colon and minimal solid stool in the descending colon, all suggestive of an ileus. The etiology of this is not readily apparent. I do see a patent SMA and SMV. Shalom Espinal MD FACR Objective Remarks GENERAL: Patient is 36 yo lying in bed, awake, looking around. SKIN: Warm and dry. HEAD: Normocephalic. EYES: No scleral icterus, no drainage. NECK: trachea midline. Orally intubated. CARDIOVASCULAR: RRR, no murmurs, gallops, or rubs. No JVD. RESPIRATORY: Bilateral breath sounds. Comfortable pattern. Minimal secretions. GASTROINTESTINAL: Abdomen soft, non-tender, nondistended. PEG in place. MUSCULOSKELETAL: No cyanosis, or edema. Well perfused. Neuro: Contracted, non-verbal. Cerebral palsy. Opens eyes, tracks. A/P Assessment and Plan Assessment: 36yM cerebral palsy and chronically debilitated and chronic multiple hospitalizations. recently with GI bleed, aspiration pneumonia, coag negative staph bacteremia, recurrent persistent respiratory failure. He has completed full course of abx for aspiration pneumonia. his bacteremia is clearing. His Cr is significantly elevated over his baseline of 0.43. His GFR is estimated around 53. Will d/c Zosyn and Vanc and start Nafcillin for his G+ bacteremia 2gm iv q6h. Will aggressively attempt to wean to extubate as soon as possible, though his chronic course and recurrent intubations put him at high risk for persistent respiratory failure requiring recurrent tracheostomy. 1. Resp Failure 2. Gram positive bacteremia 3. Leukocytosis -resolved. 4. Lactic acidemia- resolved. 5. Acute kidney injury.- persistent. baseline Cr 0.43 6. Ileus. 7. Malfunctioning J tube. 8. History of cerebral palsy. 9. History of seizures. 10. UGI bleeding. Plan Neuro: Monitor neuro status closely, minimize sedation. Continue with antiseizure meds. on Dilantin 100 mg BID. Dilantin level is 0.6. On Topamax 100 mg BID Pulm: PRVC vent mode. Bronchodilators. daily SBT. will aggressively wean to extubate CV:Monitor HR and BP keep MAP>65mmHg. On Lopressor 25 mg BID Continue with Florinef 0.2 mg daily. Aspirin 81 mg daily. : Monitor renal function, I/O's and avoid nephrotoxins. NS@75ml/hr. GI: On Protonix 40 mg daily for GI prophylaxis. GI is following s/p G-J tube exchange by IR 04/30, ID: d/c zosyn. d/c vanc. start Nafcillin 2gm iv q6h. 04/28 BC 11/04 sets: Staph Epi, coag negative staph, urine cx: No growth 04/29 BC: GPC bottles 05/03: BC: NGTD. Heme: Monitor CBC Endo: SSI with Accu-Chek for glycemic control GI prophylaxis with Protonix 40 mg daily. DVT prophylaxis with SCDs. Overall impression: Improved respiratory status. Will push to extubate. Bhaskar Miranda MD May 05, 2017 11:05
[2017-05-05] MEDS: DEXT 5%-NACL 0.45% 1000 ML INJ 1,000 ML IV SCH (11:26)
--- NOTE | 2017-05-05 12:05 | HHI.GIFU ---
Subjective Remarks Patient is wake, alert on a vent. receiving TF through J tube at 10 ml/hr. NGT was pulled out yesterday by patient according to nurse. He is passing stools. ( Karen Ellis) Objective Vitals I&O Vital Signs Date Time Temp Pulse Resp B/P Pulse Ox O2 Delivery O2 Flow Rate FiO2 05/05/17 11:15 100 T-piece 6.00 35 05/05/17 08:10 30 05/05/17 08:10 100 30 05/05/17 08:00 61 05/05/17 08:00 40 05/05/17 08:00 97.3 61 23 140/73 100 05/05/17 06:09 100 40 05/05/17 04:27 100 40 05/05/17 04:00 44 05/05/17 04:00 98.9 44 12 121/57 100 05/05/17 04:00 40 05/05/17 00:22 100 40 05/05/17 00:00 40 05/05/17 00:00 52 05/05/17 00:00 99.2 52 12 134/77 100 05/04/17 20:00 48 05/04/17 20:00 100 40 05/04/17 20:00 98.0 51 12 135/63 100 05/04/17 20:00 40 05/04/17 16:00 99.6 54 12 139/71 100 05/04/17 16:00 40 05/04/17 15:30 100 40 05/04/17 12:00 98.1 60 12 134/65 100 05/04/17 12:00 40 I/O 05/04/17 05/04/17 05/04/17 05/05/17 05/05/17 05/05/17 07:00 15:00 23:00 07:00 15:00 23:00 Intake Total 970 ml 1188 ml 897 ml 1025 ml Output Total 1150 ml 550 ml 350 ml 300 ml Balance -180 ml 638 ml 547 ml 725 ml Intake Oral 0 ml 0 ml IV Total 910 ml 1137 ml 740 ml 932 ml Tube Feeding 51 ml 57 ml 93 ml Tube Irrigant 100 ml Other 60 ml Output Urine Total 500 ml 350 ml 250 ml 300 ml Gastric Drainage Total 650 ml 200 ml 100 ml # Bowel Movements 1 2 1 Laboratory Laboratory Tests Test 05/04/17 17:16 Hemoglobin 10.0 Hematocrit 30.5 Platelet Count 392 Date/Time Procedure Status Source Growth 05/03/17 14:54 Aerobic Blood Culture - Preliminary Resulted Blood Peripheral NO GROWTH IN 2 DAYS 05/03/17 14:54 Anaerobic Blood Culture - Preliminary Resulted Blood Peripheral NO GROWTH IN 2 DAYS Imaging Last Impressions Chest X-Ray 05/04/17 0400 Signed Impressions: Service Date/Time: Thursday, May 04, 2017 04:58 - CONCLUSION: 1. Patchy alveolar disease characteristic of edema or pneumonia. There has been no significant change when compared to the prior exam. Young Queen MD Abdomen/Pelvis CT 05/02/17 0000 Signed Impressions: Service Date/Time: Tuesday, May 02, 2017 17:14 - CONCLUSION: 1. Persistent dilatation of the small bowel which is now more fluid-filled than on the prior study. No inflammatory process or stranding lesion observed. No free air. Small amount of free fluid. 2. Development of a small right effusion. 3. Bibasilar pulmonary infiltrates. 4. Hiatal hernia. 5. Prior splenectomy. Gaston Wagner Jr., MD Tube Change 04/30/17 0000 Signed Impressions: Service Date/Time: Sunday, April 30, 2017 16:39 - CONCLUSION: Uncomplicated gastrojejunostomy tube exchange as above. Jose Allison MD Abdomen X-Ray 04/29/17 0600 Signed Impressions: Service Date/Time: Saturday, April 29, 2017 03:22 - CONCLUSION: Moderate amount air throughout the colon. G-tube in good position Devin Hassan MD Physical Exam HEENT: Normocephalic; atraumatic CHEST: Resp. even, unlabored, course breath sounds, OETT to vent CARDIAC: RRR ABDOMEN: Soft, mildly distended, no hepatosplenomegaly; bowel sounds hypoactive. GJ tube with TF to J tube. EXTREMITIES: Contracted SUPERINTENDENT OF GENERATION: Nonverbal, vented (Karen Ellis) Assessment and Plan Plan ASSESSMENT: - Upper GIB. No bleeding reported- hgb yesterday 10.0. S/P EGD (05/02/17)-----> 1. G/j tube in place, hiatal hernia, dilated esophagus, esophagitis distal esophagus-biopsy, some gastric juice sitting in esophagus / stomach-suctioned suggesting poor motility 2. Retroflexed views revealed a hiatal hernia. Pathology esophagus with acute ulcerative and chronic esophagitis, fungal hyphal and yeast forms consistent with daryl are present (Gomori methenamine silver stain). Pt started vomiting reddish brown secretions Sunday night/ morning. NG was placed in esophagus and immediately suctioned large amount of reddish brown secretions. He was tx to [facility]. S/P EGD (05/03/17)----> 1. Severe esophagitis j shape stomach g/j tube in stomach going into pylorus-could not advance into duodenum no active bleeding 2. Retroflexed views revealed a hiatal hernia. NGT with large amount of bilious material without bleeding. Abdomen/Pelvis CT (05/02/17)----> 1. Persistent dilatation of the small bowel which is now more fluid-filled than on the prior study. No inflammatory process or stranding lesion observed. No free air. Small amount of free fluid. 2. Development of a small right effusion. 3. Bibasilar pulmonary infiltrates. 4. Hiatal hernia. 5. Prior splenectomy. Trickle feeds were started, but the day nurse came in with this going to the G tube and therefore changed this to the J tube. The ngt is suctioning what appears to be TF. He had a significant drop from 05/02 10.3/32.4 to 8.7/26.2, but there is no signs of active bleeding. - Colonic Ileus with n/v and constipation. Abdomen/Pelvis CT (04/28/17)----> 1. Abnormal lungs suggesting either failure or infiltrate. 2. Tube that may be a jejunostomy tube in the stomach. There is moderate gaseous distention of distal small bowel and colon with liquid stool in the ascending colon and minimal solid stool in the descending colon, all suggestive of an ileus. The etiology of this is not readily apparent. I do see a patent SMA and SMV. Abdomen X-Ray ()----> Moderate amount air throughout the colon. G-tube in good position. (+) BM.Rpt. CT as above. Bethanechol (reglan has multiple interactions listed with psych meds), Miralax daily. - Daryl esophagitis. Nystatin (05/03) - Leukocytosis/Bacteremia. BCX (04/28) with staph coagulase negative, staphylococcus epidermidis. Rpt culture (04/29/17) gram positive coci, staph coag neg. BCx from (05/01) Staph Sp Coagulase negative. Bcx (05/03) no growth 1 day Vancomycin - SIM with electrolyte abnormalities, per CCM - Hx cerebral palsy, development delay, sz disorder PLAN: - Glucerna 1.5, okay to increase to 20 ml/hr - KUB - Cont. Nystatin (05/03) - Cont. Protonix 40mg IV BID - Bethanechol - Miralax - Monitor HH, transfuse as needed - Notify GI of active bleeding - Supportive care - Further recommendations to follow based on results of above. - Pt seen and examined by Dr. Watts and myself and this note is written on her behalf (Karen Ellis) Physician Comments seen, examined agree with above (Shayla Watts MD) Karen Ellis May 05, 2017 12:05 Shayla Watts MD May 05, 2017 15:52
[2017-05-05] MEDS: NAFCILLIN INJ 2,000 MG in SODIUM CHLORIDE 0.9% INJ 100 ML IV SCH ×2 (13:13→18:24)
--- NOTE | 2017-05-05 13:31 | RADRPT ---
EXAM DATE/TIME: 05/05/2017 12:59 [place] COMPARISON: CT ABDOMEN & PELVIS W CONTRAST, May 02, 2017, 17:14. ABDOMEN KUB ONLY, April 29, 2017, 3:22. INDICATIONS : Abdominal distension, vomiting MEDICAL HISTORY : Seizures. Scoliosis, Bradycardia, Cerebral palsy. SURGICAL HISTORY : Splenectomy, J-tube ENCOUNTER: Subsequent ACUITY: 4 - 6 days PAIN SCORE: Non-responsive. LOCATION: Bilateral abdomen FINDINGS: Rotated supine frontal views of the abdomen demonstrate a GJ tube in place. There is mild diffuse gas eous distention similar to the prior study. No transition point is appreciated. No organomegaly is se en. Multiple lines overlie the patient. Hips are chronically dislocated bilaterally CONCLUSION: 1. Stable examination of the abdomen with mild diffuse gaseous distention of the bowel. However, no t ransition point is present to suggest bowel obstruction. 2. Chronically dislocated hips bilaterally. Mg Darling MD on May 05, 2017 at 13:26 Board Certified Radiologist. This report was verified electronically.
[2017-05-05 13:45] LABS: BLOOD GAS BASE EXCESS -5.3 mmol/L (-2-2); BLOOD GAS CARBOXYHEMOGLOBIN 0.9 % (0-4); BLOOD GAS HCO3 19 mmol/L (22-26); BLOOD GAS METHEMOGLOBIN 0.6 % (0-2); BLOOD GAS O2 HGB SATURATION 98 % (90-100); BLOOD GAS OXYGEN CONTENT 12.9 Vol % (12.0-20.0); BLOOD GAS PCO2 30 mmHg (38-42); BLOOD GAS PO2 140 mmHg (61-120); BLOOD GAS TOTAL HGB 9.2 G/DL (12.0-16.0); CRITICAL VALUE NO; DRAW SITE RT RADIAL; FIO2 35 %; LITER FLOW 6 L/M; NUMBER OF ARTERIAL PUNCTURES 1; OXYGEN DEVICE T-PIECE; TEMP CORR TO 98.6; ULNAR PULSE PRESENT
[2017-05-05] MEDS ORDERED: PHARMACY ORDERED LAB ONE (13:45)
[2017-05-05 13:46] LABS: STAT NO
[2017-05-06] VITALS (11 sets, daily range): BP systolic 109–133; BP diastolic 54–74; PULSE 57–79; RESP 24–32; TEMP 97.1–97.7; O2SAT 93–100
[2017-05-06] MEDS: NAFCILLIN INJ 2,000 MG in SODIUM CHLORIDE 0.9% INJ 100 ML IV SCH ×4 (00:14→17:50)
[2017-05-06] MEDS: DEXT 5%-NACL 0.45% 1000 ML INJ 1,000 ML IV SCH ×2 (02:00→12:08)
[2017-05-06] MEDS: INSULIN NovoLIN REGULAR SUPPLEMENTAL SCALE SQ SCH ×6 (03:00→23:00)
[2017-05-06] MEDS: LORazepam 2 MG/ML VIAL IV PRN ×2 (03:38→08:52)
[2017-05-06] MEDS: METOPROLOL TARTRATE 25 MG TAB PO SCH ×2 (06:00→17:15)
[2017-05-06] MEDS: BETHANECHOL CHL 25 MG TAB PEG SCH ×3 (06:05→21:08)
[2017-05-06] MEDS: NYSTATIN 500,000 UNIT TAB PO SCH ×3 (06:05→21:08)
[2017-05-06 06:06] LABS: HEMATOCRIT 30.5 % (39.0-51.0); MEAN CORPUSCULAR HEMOGLOBIN 26.2 PG (27.0-34.0); MEAN CORPUSCULAR HGB CONC 33.1 % (32.0-36.0); PLATELET COUNT 358 TH/MM3 (150-450); RED BLOOD COUNT 3.86 MIL/MM3 (4.50-5.90); RED CELL DISTRIBUTION WIDTH 18.7 % (11.6-17.2); REVIEW FLAG FINAL; WHITE BLOOD COUNT 8.7 TH/MM3 (4.0-11.0)
[2017-05-06] MEDS: ALPRAZolam 0.5 MG TAB PO PRN ×2 (06:13→21:07)
[2017-05-06] MEDS: POLYETHYLENE GLYCOL 17 GM PKG DOBHOFF SCH (07:29)
[2017-05-06] MEDS: SODIUM CHLORIDE 0.9% FLUSH 10 ML FLUSH IV FLUSH SCH ×2 (07:29→21:07)
[2017-05-06] MEDS: CHLORHEXIDINE 0.12% (ORAL KIT) 15 ML CUP MT SCH ×2 (08:00→19:35)
[2017-05-06] MEDS: PANTOPRAZOLE SODIUM 40 MG VIAL IV PUSH SCH ×2 (08:05→21:06)
[2017-05-06] MEDS: ASPIRIN EC 81 MG TABEC PO SCH (08:06)
[2017-05-06] MEDS: PHENYTOIN SUSP 100 MG/4 ML CUP PO SCH ×2 (08:06→21:07)
[2017-05-06] MEDS: FLUDROCORTISONE ACETATE 0.1 MG TAB PO SCH (08:06)
[2017-05-06] MEDS: TOPIRAMATE 100 MG TAB PO SCH ×2 (08:06→21:07)
[2017-05-06] MEDS: HEPARIN SODIUM - SQ 10,000 UNITS/ML VIAL SQ SCH ×2 (08:06→19:34)
[2017-05-06 11:32] LABS: BICARBONATE 20.8 MEQ/L (21.0-32.0)
[2017-05-06 11:38] LABS: POTASSIUM 1.9 MEQ/L (3.5-5.1)
[2017-05-06] MEDS ORDERED: POTASSIUM PHOSPHATE MONOBASIC 500 MG TAB PO/TUBE PRN (11:45)
[2017-05-06] MEDS ORDERED: POTASSIUM PHOSPHATE MONOBASIC 500 MG TAB PO PRN (11:45)
[2017-05-06] MEDS ORDERED: POTASSIUM PHOSPHATE INJ 30 MMOL in SODIUM CHLOR 0.9% 250 ML INJ 250 ML IV PRN (11:45)
[2017-05-06] MEDS ORDERED: SODIUM PHOSPHATE INJ 30 MMOL in SODIUM CHLOR 0.9% 250 ML INJ 240 ML IV PRN (11:45)
[2017-05-06] MEDS ORDERED: POTASSIUM CHLOR 20 MEQ PREMIX 100 ML IV PRN (11:45)
[2017-05-06] MEDS ORDERED: MAGNESIUM OXIDE 400 MG TAB PO PRN (11:45)
[2017-05-06] MEDS ORDERED: POTASSIUM CHLOR 40 MEQ PREMIX 100 ML IV PRN ×2 (11:45)
[2017-05-06] MEDS ORDERED: POTASSIUM CHLORIDE 25 MEQ EFFERVESCENT TAB PO PRN (11:45)
[2017-05-06] MEDS ORDERED: MAGNESIUM SULFATE INJ 4 GM in SODIUM CHLORIDE 0.9% INJ 92 ML IV PRN (11:45)
[2017-05-06] MEDS ORDERED: MAGNESIUM SULFATE INJ 2 GM in SODIUM CHLORIDE 0.9% INJ 96 ML IV PRN (11:45)
[2017-05-06] MEDS: POTASSIUM CHLORIDE 25 MEQ EFFERVESCENT TAB PEG SCH (12:08)
[2017-05-06] MEDS: POTASSIUM CHLOR 20 MEQ PREMIX 100 ML IV SCH (12:08)
--- NOTE | 2017-05-06 14:10 | HHI.GIFU ---
Subjective Remarks Lying in bed in no apparent distress. (Fabiola Rodriguez) Objective Vitals I&O Vital Signs Date Time Temp Pulse Resp B/P Pulse Ox O2 Delivery O2 Flow Rate FiO2 05/06/17 12:00 79 05/06/17 12:00 97.4 79 27 116/60 99 05/06/17 08:21 99 21 05/06/17 08:00 97.4 67 32 124/65 93 05/06/17 08:00 67 05/06/17 07:00 96 Room Air 05/06/17 06:00 60 05/06/17 04:00 97.6 60 24 133/74 100 05/06/17 04:00 60 05/06/17 02:00 60 05/06/17 00:00 97.6 57 25 109/54 98 05/06/17 00:00 57 05/05/17 22:00 60 05/05/17 20:27 98 21 05/05/17 20:00 98.8 57 25 120/56 98 05/05/17 20:00 57 05/05/17 19:00 98 Room Air 05/05/17 16:00 98.1 51 30 129/62 100 05/05/17 16:00 51 05/05/17 14:03 100 Nasal Cannula 3 05/05/17 14:03 100 Nasal Cannula 3.00 I/O 05/05/17 05/05/17 05/05/17 05/06/17 05/06/17 05/06/17 07:00 15:00 23:00 07:00 15:00 23:00 Intake Total 1025 ml 930 ml 1037 ml 933 ml Output Total 300 ml 325 ml 300 ml 350 ml Balance 725 ml 605 ml 737 ml 583 ml IV Total 932 ml 745 ml 844 ml 730 ml Tube Feeding 93 ml 65 ml 73 ml 83 ml Tube Irrigant 120 ml 120 ml 120 ml Output Urine Total 300 ml 325 ml 300 ml 350 ml # Bowel Movements 1 3 0 1 Laboratory Laboratory Tests Test 05/06/17 04:53 White Blood Count 8.7 Red Blood Count 3.86 Hemoglobin 10.1 Hematocrit 30.5 Mean Corpuscular Volume 79.0 Mean Corpuscular Hemoglobin 26.2 Mean Corpuscular Hemoglobin 33.1 Concent Red Cell Distribution Width 18.7 Platelet Count 358 Mean Platelet Volume 8.1 Sodium Level 143 Potassium Level 1.9 Chloride Level 113 Carbon Dioxide Level 20.8 Anion Gap 9 Blood Urea Nitrogen 5 Creatinine 1.18 Estimat Glomerular Filtration 86 Rate Random Glucose 100 Calcium Level 7.1 Protein Corrected Calcium 7.0 Total Protein 7.4 Phenytoin (Dilantin) Level 7.4 Date/Time Procedure Status Source Growth 05/03/17 14:54 Aerobic Blood Culture - Preliminary Resulted Blood Peripheral NO GROWTH IN 3 DAYS 05/03/17 14:54 Anaerobic Blood Culture - Preliminary Resulted Blood Peripheral NO GROWTH IN 3 DAYS 05/01/17 15:11 Aerobic Blood Culture - Final Complete Blood Peripheral NO GROWTH IN 5 DAYS 05/01/17 15:11 Anaerobic Blood Culture - Final Complete Blood Peripheral NO GROWTH IN 5 DAYS Imaging Last Impressions Abdomen X-Ray 05/05/17 0000 Signed Impressions: Service Date/Time: Friday, May 05, 2017 12:59 - CONCLUSION: 1. Stable examination of the abdomen with mild diffuse gaseous distention of the bowel. However, no transition point is present to suggest bowel obstruction. 2. Chronically dislocated hips bilaterally. Mg Darling MD Chest X-Ray 05/04/17 0400 Signed Impressions: Service Date/Time: Thursday, May 04, 2017 04:58 - CONCLUSION: 1. Patchy alveolar disease characteristic of edema or pneumonia. There has been no significant change when compared to the prior exam. Young Queen MD Abdomen/Pelvis CT 05/02/17 0000 Signed Impressions: Service Date/Time: Tuesday, May 02, 2017 17:14 - CONCLUSION: 1. Persistent dilatation of the small bowel which is now more fluid-filled than on the prior study. No inflammatory process or stranding lesion observed. No free air. Small amount of free fluid. 2. Development of a small right effusion. 3. Bibasilar pulmonary infiltrates. 4. Hiatal hernia. 5. Prior splenectomy. Gaston Wagner Jr., MD Tube Change 04/30/17 0000 Signed Impressions: Service Date/Time: Sunday, April 30, 2017 16:39 - CONCLUSION: Uncomplicated gastrojejunostomy tube exchange as above. Jose Allison MD Physical Exam HEENT: Normocephalic; atraumatic CHEST: CTA CARDIAC: RRR, no murmurs, gallops, or rubs. No JVD. ABDOMEN: Soft, non distended, no hepatosplenomegaly; bowel sounds hypoactive. GJ tube with TF to J tube. EXTREMITIES: Contracted [employer]: Non verbal. (Fabiola Rodriguez) Assessment and Plan Plan ASSESSMENT: - Upper GIB. No active bleeding reported. HH stable, 10.1/30.5 today. S/P EGD ()--1. G/j tube in place, hiatal hernia, dilated esophagus, esophagitis distal esophagus-biopsy, some gastric juice sitting in esophagus / stomach- suctioned suggesting poor motility 2. Retroflexed views revealed a hiatal hernia. Pathology esophagus with acute ulcerative and chronic esophagitis, fungal hyphal and yeast forms consistent with daryl are present (Gomori methenamine silver stain). Pt started vomiting reddish brown secretions last Sunday night/ morning. NG was placed in esophagus and immediately suctioned large amount of reddish brown secretions. He was tx to [facility]. S/P EGD (05/03/17)--1. Severe esophagitis j shape stomach g/j tube in stomach going into pylorus-could not advance into duodenum no active bleeding 2. Retroflexed views revealed a hiatal hernia. NGT with large amount of bilious material without bleeding. Abdomen/Pelvis CT (05/02/17)--1. Persistent dilatation of the small bowel which is now more fluid-filled than on the prior study. No inflammatory process or stranding lesion observed. No free air. Small amount of free fluid. 2. Development of a small right effusion. 3. Bibasilar pulmonary infiltrates. 4. Hiatal hernia. 5. Prior splenectomy. Trickle feeds were started, but the day nurse came in with this going to the G tube and therefore changed this to the J tube. He had a significant drop from 05/02 10.3/32.4 to 8.7/26.2, but there was no signs of active bleeding. NGT was pulled out by patient 05/04/17. - Colonic Ileus with n/v and constipation. Abdomen/Pelvis CT (04/28/17)-- 1. Abnormal lungs suggesting either failure or infiltrate. 2. Tube that may be a jejunostomy tube in the stomach. There is moderate gaseous distention of distal small bowel and colon with liquid stool in the ascending colon and minimal solid stool in the descending colon, all suggestive of an ileus. The etiology of this is not readily apparent. I do see a patent SMA and SMV. Abdomen X-Ray (04/29)-- Moderate amount air throughout the colon. G-tube in good position. (+) BM. Rpt. CT as above. Bethanechol (reglan has multiple interactions listed with psych meds), Miralax daily. Abdomen X-Ray 05/05/17--1. Stable examination of the abdomen with mild diffuse gaseous distention of the bowel. However, no transition point is present to suggest bowel obstruction. 2. Chronically dislocated hips bilaterally. - Daryl esophagitis. Nystatin (05/03) - Leukocytosis/Bacteremia. BCX (04/28) with staph coagulase negative, staphylococcus epidermidis. Rpt culture (04/29/17) gram positive cocci, staph coag neg. BCx from (05/01) Staph Sp Coagulase negative. Bcx (05/03) no growth 3 days. Vancomycin. - SIM with electrolyte abnormalities, per CCM - Hx cerebral palsy, development delay, sz disorder PLAN: - Glucerna 1.5, okay to increase to 20 ml/hr - Cont. Nystatin (05/03) - Cont. Protonix 40mg IV BID - Bethanechol - Miralax - Monitor HH, transfuse as needed - Notify GI of active bleeding - Supportive care - Further recommendations to follow based on results of above. Patient seen and examined by Dr. Watts and myself and this note is written on her behalf (Fabiola Rodriguez) Physician Comments seen, examined agree with above gi will sign off call us as needed (Shayla Watts MD) Fabiola Rodriguez May 06, 2017 14:10 Shayla Watts MD May 06, 2017 20:39
--- NOTE | 2017-05-06 14:30 | HHI.PR ---
Subjective Remarks The patient appeared comfortable in bed. He was lethargic and not responding to questions. Discussed with nursing at the bedside. She had no acute complaints. Objective Vitals Vital Signs Date Time Temp Pulse Resp B/P Pulse Ox O2 Delivery O2 Flow Rate FiO2 05/06/17 12:00 79 05/06/17 12:00 97.4 79 27 116/60 99 05/06/17 08:21 99 21 05/06/17 08:00 97.4 67 32 124/65 93 05/06/17 08:00 67 05/06/17 07:00 96 Room Air 05/06/17 06:00 60 05/06/17 04:00 97.6 60 24 133/74 100 05/06/17 04:00 60 05/06/17 02:00 60 05/06/17 00:00 97.6 57 25 109/54 98 05/06/17 00:00 57 05/05/17 22:00 60 05/05/17 20:27 98 21 05/05/17 20:00 98.8 57 25 120/56 98 05/05/17 20:00 57 05/05/17 19:00 98 Room Air 05/05/17 16:00 98.1 51 30 129/62 100 05/05/17 16:00 51 I/O 05/05/17 05/05/17 05/05/17 05/06/17 05/06/17 05/06/17 07:00 15:00 23:00 07:00 15:00 23:00 Intake Total 1025 ml 930 ml 1037 ml 933 ml 831 ml Output Total 300 ml 325 ml 300 ml 350 ml 325 ml Balance 725 ml 605 ml 737 ml 583 ml 506 ml IV Total 932 ml 745 ml 844 ml 730 ml 620 ml Tube Feeding 93 ml 65 ml 73 ml 83 ml 61 ml Tube Irrigant 120 ml 120 ml 120 ml Other 150 ml Output Urine Total 300 ml 325 ml 300 ml 350 ml 325 ml # Bowel Movements 1 3 0 1 0 Result Diagram: 05/06/17 0453 05/06/17 0453 Imaging Last Impressions Abdomen X-Ray 05/05/17 0000 Signed Impressions: Service Date/Time: Friday, May 05, 2017 12:59 - CONCLUSION: 1. Stable examination of the abdomen with mild diffuse gaseous distention of the bowel. However, no transition point is present to suggest bowel obstruction. 2. Chronically dislocated hips bilaterally. Mg Darling MD Chest X-Ray 05/04/17 0400 Signed Impressions: Service Date/Time: Thursday, May 04, 2017 04:58 - CONCLUSION: 1. Patchy alveolar disease characteristic of edema or pneumonia. There has been no significant change when compared to the prior exam. Young Queen MD Abdomen/Pelvis CT 05/02/17 0000 Signed Impressions: Service Date/Time: Tuesday, May 02, 2017 17:14 - CONCLUSION: 1. Persistent dilatation of the small bowel which is now more fluid-filled than on the prior study. No inflammatory process or stranding lesion observed. No free air. Small amount of free fluid. 2. Development of a small right effusion. 3. Bibasilar pulmonary infiltrates. 4. Hiatal hernia. 5. Prior splenectomy. Gaston Wagner Jr., MD Tube Change 04/30/17 0000 Signed Impressions: Service Date/Time: Sunday, April 30, 2017 16:39 - CONCLUSION: Uncomplicated gastrojejunostomy tube exchange as above. Jose Allison MD Objective Remarks GENERAL: Sleeping. SKIN: Warm and dry. HEAD: Normocephalic. EYES: No scleral icterus, no drainage. NECK: trachea midline. Orally intubated. CARDIOVASCULAR: RRR, no murmurs, gallops, or rubs. No JVD. RESPIRATORY: Bilateral breath sounds. Comfortable pattern. Minimal secretions. GASTROINTESTINAL: Abdomen soft, non-tender, slightly distended. PEG in place. Decreased bowel sounds. MUSCULOSKELETAL: No cyanosis, or edema. Well perfused. NEURO: Contracted, non-verbal. Cerebral palsy. Medications and IVs Current Medications Medications (Trade) Dose Ordered Sig/Carlotta Route Start Time Stop Time Status Last Admin (NS Flush) 2 ml UNSCH PRN IV FLUSH 04/28/17 08:30 (NS Flush) 2 ml BID IV FLUSH 04/28/17 09:00 05/06/17 07:29 (Zofran Inj) 4 mg Q6H PRN IVP 04/28/17 08:30 04/28/17 10:15 (Heparin Inj) 5,000 units Q12H SQ 04/28/17 08:30 05/06/17 08:06 (Narcan Inj) 0.4 mg UNSCH PRN IV 04/28/17 08:30 (Milk Of Magnesia Liq) 30 ml Q12H PRN PO 04/28/17 08:30 (Senokot) 17.2 mg Q12H PRN PO 04/28/17 08:30 (Dulcolax Supp) 10 mg DAILY PRN RECTAL 04/28/17 08:30 (Lactulose Liq) 30 ml DAILY PRN PO 04/28/17 08:30 (Xanax) 0.5 mg Q8H PRN PO 04/28/17 10:15 05/06/17 06:13 (Ecotrin Ec) 81 mg DAILY PO 04/29/17 09:00 05/06/17 08:06 (Florinef) 0.2 mg DAILY PO 04/29/17 09:00 05/06/17 08:06 (Dilantin Liq) 100 mg BID PO 04/28/17 21:00 05/06/17 08:06 (Topamax) 100 mg BID PO 04/28/17 21:00 05/06/17 08:06 (Desyrel) 25 mg DAILY PRN PO 04/28/17 10:15 (Pill Splitter) 1 ea UNSCH PRN OTHER 04/28/17 10:30 (D50w (Vial) Inj) 50 ml UNSCH PRN IV 04/28/17 14:15 (Glucagon Inj) 1 mg UNSCH PRN OTHER 04/28/17 14:15 (NovoLIN R SUPPLEMENTAL SCALE) 1 Q4H SQ 04/28/17 15:00 Miscellaneous Information Patient in critical care unit? Ass... Q361D .XX 04/28/17 21:15 (Haldol Inj) 5 mg Q4H PRN IV 04/28/17 23:30 04/29/17 21:59 Lorazepam 0.5 mg 0.5 mg Q4H PRN IV 04/28/17 23:45 05/06/17 08:52 (D5W-1/2 NS 1000 ml Inj) 1,000 ml @ 75 mls/hr [id number] IV 04/29/17 10:00 05/06/17 12:08 (Lopressor) 25 mg Q12H PO 04/29/17 18:00 05/04/17 18:36 (Miralax) 17 gm DAILY DOBHOFF 04/30/17 17:00 05/03/17 08:30 (Urecholine) 12.5 mg Q8HR PEG 04/30/17 22:00 05/06/17 14:04 (Peridex 0.12% Liq) 15 ml BID@08,20 MT 05/02/17 20:00 05/05/17 08:58 (Mycostatin) 500,000 units Q8HR PO 05/03/17 22:00 05/06/17 14:04 Pantoprazole Sodium 40 mg 40 mg Q12HR IV PUSH 05/03/17 21:00 05/06/17 08:05 (Unipen Inj/NS Inj) 100 ml @ 100 mls/hr Q6H IV 05/05/17 13:00 05/06/17 13:00 Potassium Bicarb/ Potassium Chloride 50 meq 50 meq DAILY PEG 05/06/17 11:45 05/06/17 12:08 Potassium Chloride 100 ml @ 50 mls/hr Q2H IV 05/06/17 12:00 05/06/17 15:59 05/06/17 12:08 Potassium Chloride 100 ml @ 50 mls/hr Q2H PRN IV 05/06/17 11:45 (KCl 20 Meq Premix Inj) 100 ml @ 50 mls/hr Q2H PRN IV 05/06/17 11:45 Potassium Bicarb/ Potassium Chloride 50 meq 50 meq UNSCH PRN PO 05/06/17 11:45 Potassium Chloride 100 ml @ 25 mls/hr UNSCH PRN IV 05/06/17 11:45 Potassium Chloride 100 ml @ 50 mls/hr Q2H PRN IV 05/06/17 11:45 (Magnesium Sulfate Inj/NS Inj) 100 ml @ 50 mls/hr UNSCH PRN IV 05/06/17 11:45 Magnesium Oxide 800 mg 800 mg UNSCH PRN PO 05/06/17 11:45 (Magnesium Sulfate Inj/NS Inj) 100 ml @ 50 mls/hr UNSCH PRN IV 05/06/17 11:45 Potassium Phosphate 2000 mg 2,000 mg Q4H PRN PO 05/06/17 11:45 (Sodium Phosphate Inj/NS 250 ml Inj) 250 ml @ 42 mls/hr UNSCH PRN IV 05/06/17 11:45 Potassium Phosphate 2000 mg 2,000 mg UNSCH PRN PO/TUBE 05/06/17 11:45 Potassium Phosphate 30 mmol/ Sodium Chloride 260 ml @ 42 mls/hr UNSCH PRN IV 05/06/17 11:45 (Calcium Gluconate Inj/NS Inj) 120 ml @ 120 mls/hr ONCE ONCE IV 05/06/17 16:00 05/06/17 16:59 A/P Assessment and Plan Acute respiratory failure He has a history of aspiration pneumonia. S/p intubation/ extubation. - continue antibiotics. - oxygen and nebs as needed. Severe hypokalemia/ hypocalcemia K+ was 1.9. - PO and IV repletion ordered. - check mg and phos levels. - telemetry. - ICU electrolyte replacement protocol. Ileus/ GIB/ Esophagitis S/p G-J tube exchange by IR 04/30GI consult appreciated. S/p EGD which showed: Severe esophagitis j shape stomach g/j tube in stomach going into pylorus-could not advance into duodenum no active bleeding. Repeat KUB with distention. - On Protonix. - continue nystatin. - continue bethanechol. - follow CBC and transfuse as needed. - follow up with GI. Bacteremia 04/28 BC 2/4 sets: Staph Epi, coag negative staph; 04/29 BC: GPC 2 /4 bottles. ID consult appreciated. - antibiotics changed to nafcillin by change advisor. Was on vancomycin and Zosyn. Follow ID recommendations. - follow repeat blood cultures. History of seizures No seizure activity. - Monitor neuro status closely, minimize sedation. - Continue with antiseizure meds. On Dilantin 100 mg BID. On Topamax 100 mg BID. - seizure precautions. DVT prophylaxis with SCDs. Discharge Planning Transfer to floor in AM if potassium stable Ayaan Ordoñez DO May 06, 2017 14:29
[2017-05-06 15:53] LABS: MAGNESIUM 1.5 MG/DL (1.5-2.5)
[2017-05-06] MEDS ORDERED: CALCIUM GLUCONATE INJ 2 GM in SODIUM CHLORIDE 0.9% INJ 100 ML IV ONE (16:00)
[2017-05-07] VITALS (10 sets, daily range): BP systolic 113–138; BP diastolic 58–75; PULSE 58–88; RESP 23–31; TEMP 96.8–97.7; O2SAT 96–100
[2017-05-07] MEDS: NAFCILLIN INJ 2,000 MG in SODIUM CHLORIDE 0.9% INJ 100 ML IV SCH ×2 (00:05→07:49)
[2017-05-07] MEDS: DEXT 5%-NACL 0.45% 1000 ML INJ 1,000 ML IV SCH ×3 (02:20→17:24)
[2017-05-07] MEDS: INSULIN NovoLIN REGULAR SUPPLEMENTAL SCALE SQ SCH ×6 (03:00→22:49)
[2017-05-07 03:38] LABS: BICARBONATE 20.3 MEQ/L (21.0-32.0); HEMATOCRIT 30.2 % (39.0-51.0); MAGNESIUM 1.6 MG/DL (1.5-2.5); MEAN CELL VOLUME 77.6 FL (80.0-100.0); MEAN CORPUSCULAR HEMOGLOBIN 25.3 PG (27.0-34.0); MEAN CORPUSCULAR HGB CONC 32.6 % (32.0-36.0); PLATELET COUNT 404 TH/MM3 (150-450); RED BLOOD COUNT 3.89 MIL/MM3 (4.50-5.90); RED CELL DISTRIBUTION WIDTH 19.3 % (11.6-17.2); REVIEW FLAG FINAL; WHITE BLOOD COUNT 10.2 TH/MM3 (4.0-11.0)
[2017-05-07] MEDS: LORazepam 2 MG/ML VIAL IV PRN (03:39)
[2017-05-07 03:42] LABS: POTASSIUM 2.8 MEQ/L (3.5-5.1)
[2017-05-07] MEDS: POTASSIUM CHLOR 20 MEQ PREMIX 100 ML IV PRN ×3 (03:45→10:37)
[2017-05-07 04:02] LABS: CALCIUM-PROTEIN CORRECTED 7.5 MG/DL (8.5-10.1)
[2017-05-07] MEDS: METOPROLOL TARTRATE 25 MG TAB PO SCH ×2 (05:39→17:24)
[2017-05-07] MEDS: NYSTATIN 500,000 UNIT TAB PO SCH ×3 (05:39→21:02)
[2017-05-07] MEDS: BETHANECHOL CHL 25 MG TAB PEG SCH ×3 (05:39→21:02)
[2017-05-07] MEDS: CHLORHEXIDINE 0.12% (ORAL KIT) 15 ML CUP MT SCH ×2 (08:00→20:10)
[2017-05-07] MEDS: SODIUM CHLORIDE 0.9% FLUSH 10 ML FLUSH IV FLUSH SCH ×2 (09:00→20:12)
[2017-05-07] MEDS: ASPIRIN EC 81 MG TABEC PO SCH (09:00)
[2017-05-07] MEDS: POLYETHYLENE GLYCOL 17 GM PKG DOBHOFF SCH (09:00)
[2017-05-07] MEDS: PANTOPRAZOLE SODIUM 40 MG VIAL IV PUSH SCH ×2 (09:49→20:11)
[2017-05-07] MEDS: HEPARIN SODIUM - SQ 10,000 UNITS/ML VIAL SQ SCH ×2 (09:49→20:10)
[2017-05-07] MEDS: FLUDROCORTISONE ACETATE 0.1 MG TAB PO SCH (09:50)
[2017-05-07] MEDS: POTASSIUM CHLORIDE 25 MEQ EFFERVESCENT TAB PEG SCH (09:50)
[2017-05-07] MEDS: TOPIRAMATE 100 MG TAB PO SCH ×2 (09:50→20:11)
[2017-05-07] MEDS: PHENYTOIN SUSP 100 MG/4 ML CUP PO SCH ×2 (09:55→20:11)
--- NOTE | 2017-05-07 11:27 | HHI.IDPN ---
Note Infectious Disease Note ID coverage. Notes reviewed. Patient is on nasal canula O2. Looks comfortable. Sleepy. No fever. Repeat blood culture has no growth. 2D ECHO without vegetation. Antibiotics Oxacillin started by [facility]. Past Medical History reviewed. Allergies: Coded Allergies: *MDRO Multi-Drug Resistant Organism (Verified Adverse Reaction, Unknown, ) MDR Pseudomonas (sputum) - 11/09/16 OBJECTIVE: Vital Signs Date Time Temp Pulse Resp B/P Pulse Ox O2 Delivery O2 Flow Rate FiO2 05/07/17 07:39 98 Nasal Cannula 2.00 05/07/17 04:00 97.7 83 26 121/66 100 05/07/17 04:00 83 05/07/17 00:00 97.7 58 23 113/58 100 05/07/17 00:00 58 05/06/17 22:00 63 05/06/17 20:00 70 05/06/17 20:00 97.7 70 28 131/68 100 05/06/17 19:00 100 Nasal Cannula 2.00 05/06/17 17:06 100 Nasal Cannula 2.00 05/06/17 16:40 95 Nasal Cannula 2.00 05/06/17 16:00 79 05/06/17 16:00 97.1 76 27 128/74 99 05/06/17 12:00 79 05/06/17 12:00 97.4 79 27 116/60 99 05/06/17 05/06/17 05/07/17 15:00 23:00 07:00 Intake Total 831 ml 845 ml 935 ml Output Total 325 ml 500 ml 750 ml Balance 506 ml 345 ml 185 ml IV Total 620 ml 625 ml 750 ml Tube Feeding 61 ml 70 ml 85 ml Other 150 ml 150 ml 100 ml Output Urine Total 325 ml 500 ml 750 ml # Bowel Movements 0 3 3 Laboratory Tests Test 05/06/17 05/07/17 04:53 02:59 White Blood Count 8.7 TH/MM3 10.2 TH/MM3 Red Blood Count 3.86 MIL/MM3 3.89 MIL/MM3 Hemoglobin 10.1 GM/DL 9.8 GM/DL Hematocrit 30.5 % 30.2 % Mean Corpuscular Volume 79.0 FL 77.6 FL Mean Corpuscular Hemoglobin 26.2 PG 25.3 PG Mean Corpuscular Hemoglobin 33.1 % 32.6 % Concent Red Cell Distribution Width 18.7 % 19.3 % Platelet Count 358 TH/MM3 404 TH/MM3 Mean Platelet Volume 8.1 FL 7.9 FL Hematology Comments Laboratory Tests Test 05/06/17 05/07/17 04:53 02:59 Sodium Level 143 MEQ/L 145 MEQ/L Potassium Level 1.9 MEQ/L 2.8 MEQ/L Chloride Level 113 MEQ/L 114 MEQ/L Carbon Dioxide Level 20.8 MEQ/L 20.3 MEQ/L Anion Gap 9 MEQ/L 11 MEQ/L Blood Urea Nitrogen 5 MG/DL 4 MG/DL Creatinine 1.18 MG/DL 1.06 MG/DL Estimat Glomerular Filtration 86 ML/MIN 97 ML/MIN Rate Random Glucose 100 MG/DL 82 MG/DL Calcium Level 7.1 MG/DL 6.9 MG/DL Protein Corrected Calcium 7.0 MG/DL 7.5 MG/DL Phosphorus Level 3.6 MG/DL Magnesium Level 1.5 MG/DL 1.6 MG/DL Total Protein 7.4 GM/DL 6.0 GM/DL Imaging Chest X-Ray 05/04/17 0400 Signed Impressions: Service Date/Time: Thursday, May 04, 2017 04:58 - CONCLUSION: 1. Patchy alveolar disease characteristic of edema or pneumonia. There has been no significant change when compared to the prior exam. Young Queen MD PHYSICAL EXAM GENERAL: NAD. SKIN: No rash. HEENT: No icterus. NECK: supple. No swelling. CHEST: Clear breath sounds. CARDIAC: Nl S1S2. No murmur. ABDOMEN: Soft, no tenderness appreciated. EXTREMITIES: contractures, No edema. Peripheral lines without evidence of infection. Assessment & Plan Possible sepsis on admission. Possible aspiration pneumonia. Staph bacteremia ID pending (No CL or PICC on admission) Likely contaminant as different species. But given multiple hospitalizations and Lines r/o endocarditis. Micro reports staph epi - work up in progress. Cerebral Palsy Seizure disorder. Recs: Stop antibiotics. The positive blood cultures are most likely contamination. Echo negative for vegetations. Monitor clinically. Mendoza Armando MD May 07, 2017 11:27
--- NOTE | 2017-05-07 14:53 | HHI.PR ---
Subjective Remarks The patient was resting comfortably. He would not open his eyes or participate in the examination. Objective Vitals Vital Signs Date Time Temp Pulse Resp B/P Pulse Ox O2 Delivery O2 Flow Rate FiO2 05/07/17 12:00 74 05/07/17 12:00 97.0 74 24 134/67 100 05/07/17 08:00 87 05/07/17 08:00 96.9 87 25 138/66 100 05/07/17 07:39 98 Nasal Cannula 2.00 05/07/17 07:00 100 Nasal Cannula 2.00 05/07/17 04:00 97.7 83 26 121/66 100 05/07/17 04:00 83 05/07/17 00:00 97.7 58 23 113/58 100 05/07/17 00:00 58 05/06/17 22:00 63 05/06/17 20:00 70 05/06/17 20:00 97.7 70 28 131/68 100 05/06/17 19:00 100 Nasal Cannula 2.00 05/06/17 17:06 100 Nasal Cannula 2.00 05/06/17 16:40 95 Nasal Cannula 2.00 05/06/17 16:00 79 05/06/17 16:00 97.1 76 27 128/74 99 I/O 05/06/17 05/06/17 05/06/17 05/07/17 05/07/17 05/07/17 07:00 15:00 23:00 07:00 15:00 23:00 Intake Total 933 ml 831 ml 845 ml 935 ml 978 ml Output Total 350 ml 325 ml 500 ml 750 ml 850 ml Balance 583 ml 506 ml 345 ml 185 ml 128 ml IV Total 730 ml 620 ml 625 ml 750 ml 893 ml Tube Feeding 83 ml 61 ml 70 ml 85 ml 85 ml Tube Irrigant 120 ml Other 150 ml 150 ml 100 ml Output Urine Total 350 ml 325 ml 500 ml 750 ml 700 ml Stool Total 150 ml # Bowel Movements 1 0 3 3 Result Diagram: 05/07/17 0259 05/07/17 0259 Imaging Last Impressions Abdomen X-Ray 05/05/17 0000 Signed Impressions: Service Date/Time: Friday, May 05, 2017 12:59 - CONCLUSION: 1. Stable examination of the abdomen with mild diffuse gaseous distention of the bowel. However, no transition point is present to suggest bowel obstruction. 2. Chronically dislocated hips bilaterally. Mg Darling MD Chest X-Ray 05/04/17 0400 Signed Impressions: Service Date/Time: Thursday, May 04, 2017 04:58 - CONCLUSION: 1. Patchy alveolar disease characteristic of edema or pneumonia. There has been no significant change when compared to the prior exam. Young Queen MD Abdomen/Pelvis CT 05/02/17 0000 Signed Impressions: Service Date/Time: Tuesday, May 02, 2017 17:14 - CONCLUSION: 1. Persistent dilatation of the small bowel which is now more fluid-filled than on the prior study. No inflammatory process or stranding lesion observed. No free air. Small amount of free fluid. 2. Development of a small right effusion. 3. Bibasilar pulmonary infiltrates. 4. Hiatal hernia. 5. Prior splenectomy. Gaston Wagner Jr., MD Tube Change 04/30/17 0000 Signed Impressions: Service Date/Time: Sunday, April 30, 2017 16:39 - CONCLUSION: Uncomplicated gastrojejunostomy tube exchange as above. Jose Allison MD Objective Remarks GENERAL: Sleeping. SKIN: Warm and dry. HEAD: Normocephalic. EYES: No scleral icterus, no drainage. NECK: trachea midline. Orally intubated. CARDIOVASCULAR: RRR, no murmurs, gallops, or rubs. No JVD. RESPIRATORY: Bilateral breath sounds. Comfortable pattern. Minimal secretions. GASTROINTESTINAL: Abdomen soft, non-tender, slightly distended. PEG in place. Decreased bowel sounds. MUSCULOSKELETAL: No cyanosis, or edema. Well perfused. NEURO: Contracted, non-verbal. Cerebral palsy. Medications and IVs Current Medications Medications (Trade) Dose Ordered Sig/Carlotta Route Start Time Stop Time Status Last Admin (NS Flush) 2 ml UNSCH PRN IV FLUSH 04/28/17 08:30 (NS Flush) 2 ml BID IV FLUSH 04/28/17 09:00 05/07/17 09:00 (Zofran Inj) 4 mg Q6H PRN IVP 04/28/17 08:30 04/28/17 10:15 (Heparin Inj) 5,000 units Q12H SQ 04/28/17 08:30 05/07/17 09:49 (Narcan Inj) 0.4 mg UNSCH PRN IV 04/28/17 08:30 (Milk Of Magnesia Liq) 30 ml Q12H PRN PO 04/28/17 08:30 (Senokot) 17.2 mg Q12H PRN PO 04/28/17 08:30 (Dulcolax Supp) 10 mg DAILY PRN RECTAL 04/28/17 08:30 (Lactulose Liq) 30 ml DAILY PRN PO 04/28/17 08:30 (Xanax) 0.5 mg Q8H PRN PO 04/28/17 10:15 05/06/17 21:07 (Ecotrin Ec) 81 mg DAILY PO 04/29/17 09:00 05/06/17 08:06 (Florinef) 0.2 mg DAILY PO 04/29/17 09:00 05/07/17 09:50 (Dilantin Liq) 100 mg BID PO 04/28/17 21:00 05/07/17 09:55 (Topamax) 100 mg BID PO 04/28/17 21:00 05/07/17 09:50 (Desyrel) 25 mg DAILY PRN PO 04/28/17 10:15 (Pill Splitter) 1 ea UNSCH PRN OTHER 04/28/17 10:30 (D50w (Vial) Inj) 50 ml UNSCH PRN IV 04/28/17 14:15 (Glucagon Inj) 1 mg UNSCH PRN OTHER 04/28/17 14:15 (NovoLIN R SUPPLEMENTAL SCALE) 1 Q4H SQ 04/28/17 15:00 Miscellaneous Information Patient in critical care unit? Ass... Q361D .XX 04/28/17 21:15 (Haldol Inj) 5 mg Q4H PRN IV 04/28/17 23:30 04/29/17 21:59 Lorazepam 0.5 mg 0.5 mg Q4H PRN IV 04/28/17 23:45 05/07/17 03:39 (D5W-1/2 NS 1000 ml Inj) 1,000 ml @ 75 mls/hr [id number] IV 04/29/17 10:00 05/07/17 02:20 (Lopressor) 25 mg Q12H PO 04/29/17 18:00 05/07/17 05:39 (Miralax) 17 gm DAILY DOBHOFF 04/30/17 17:00 05/03/17 08:30 (Urecholine) 12.5 mg Q8HR PEG 04/30/17 22:00 05/07/17 13:32 (Peridex 0.12% Liq) 15 ml BID@08,20 MT 05/02/17 20:00 05/07/17 08:00 (Mycostatin) 500,000 units Q8HR PO 05/03/17 22:00 05/07/17 13:32 (Protonix Inj) 40 mg Q12HR IV PUSH 05/03/17 21:00 05/07/17 09:49 Potassium Bicarb/ Potassium Chloride 50 meq 50 meq DAILY PEG 05/06/17 11:45 05/07/17 09:50 Potassium Chloride 100 ml @ 50 mls/hr Q2H PRN IV 05/06/17 11:45 (KCl 20 Meq Premix Inj) 100 ml @ 50 mls/hr Q2H PRN IV 05/06/17 11:45 05/07/17 10:37 Potassium Bicarb/ Potassium Chloride 50 meq 50 meq UNSCH PRN PO 05/06/17 11:45 Potassium Chloride 100 ml @ 25 mls/hr UNSCH PRN IV 05/06/17 11:45 Potassium Chloride 100 ml @ 50 mls/hr Q2H PRN IV 05/06/17 11:45 (Magnesium Sulfate Inj/NS Inj) 100 ml @ 50 mls/hr UNSCH PRN IV 05/06/17 11:45 Magnesium Oxide 800 mg 800 mg UNSCH PRN PO 05/06/17 11:45 (Magnesium Sulfate Inj/NS Inj) 100 ml @ 50 mls/hr UNSCH PRN IV 05/06/17 11:45 05/07/17 06:06 Potassium Phosphate 2000 mg 2,000 mg Q4H PRN PO 05/06/17 11:45 (Sodium Phosphate Inj/NS 250 ml Inj) 250 ml @ 42 mls/hr UNSCH PRN IV 05/06/17 11:45 Potassium Phosphate 2000 mg 2,000 mg UNSCH PRN PO/TUBE 05/06/17 11:45 (Potassium Phosphate Inj/NS 250 ml Inj) 260 ml @ 42 mls/hr UNSCH PRN IV 8/6/17 11:45 A/P Assessment and Plan Acute respiratory failure He has a history of aspiration pneumonia. S/p intubation/ extubation. Satting well on 2L NC at this time. - oxygen and nebs as needed. - DC antibiotics per infectious disease. - suction as needed. Severe hypokalemia/ hypocalcemia K+ was 1.9. Improved to 2.8. - PO and IV repletion ordered. - check mg and phos levels. Stable. - telemetry. - ICU electrolyte replacement protocol. Ileus/ GIB/ Esophagitis S/p G-J tube exchange by IR 04/30GI consult appreciated. S/p EGD which showed: Severe esophagitis j shape stomach g/j tube in stomach going into pylorus-could not advance into duodenum no active bleeding. Repeat KUB with distention. - On Protonix. - continue nystatin. - continue bethanechol. - follow CBC and transfuse as needed. - follow up with GI. Bacteremia 04/28 BC 2/4 sets: Staph Epi, coag negative staph; 04/29 BC: GPC 2 /4 bottles. ID consult appreciated. - antibiotics changed to nafcillin by acid loader. Was on vancomycin and Zosyn. Blood cultures thought to be contaminants per ID. The patient will be monitored off of antibiotics. - follow repeat blood cultures. History of seizures No seizure activity. - Monitor neuro status closely, minimize sedation. - Continue with antiseizure meds. On Dilantin 100 mg BID. On Topamax 100 mg BID. - seizure precautions. DVT prophylaxis with SCDs. Discharge Planning Transfer to floor Ayaan Ordoñez DO May 07, 2017 14:53
[2017-05-07] MEDS: ALPRAZolam 0.5 MG TAB PO PRN (20:11)
[2017-05-08] VITALS (11 sets, daily range): BP systolic 116–135; BP diastolic 64–76; PULSE 63–110; RESP 19–28; TEMP 97.2–98.4; O2SAT 95–100
[2017-05-08] MEDS: INSULIN NovoLIN REGULAR SUPPLEMENTAL SCALE SQ SCH ×6 (02:53→23:00)
[2017-05-08] MEDS: NYSTATIN 500,000 UNIT TAB PO SCH ×3 (05:13→23:42)
[2017-05-08] MEDS: METOPROLOL TARTRATE 25 MG TAB PO SCH ×2 (05:13→18:27)
[2017-05-08] MEDS: BETHANECHOL CHL 25 MG TAB PEG SCH ×3 (05:13→23:41)
[2017-05-08] MEDS: ALPRAZolam 0.5 MG TAB PO PRN ×3 (05:13→23:41)
[2017-05-08 05:29] LABS: HEMATOCRIT 29.5 % (39.0-51.0); MEAN CELL VOLUME 76.3 FL (80.0-100.0); PLATELET COUNT 409 TH/MM3 (150-450); RED BLOOD COUNT 3.87 MIL/MM3 (4.50-5.90); RED CELL DISTRIBUTION WIDTH 18.9 % (11.6-17.2); REVIEW FLAG FINAL; WHITE BLOOD COUNT 8.8 TH/MM3 (4.0-11.0)
[2017-05-08 05:40] LABS: BICARBONATE 19.8 MEQ/L (21.0-32.0); MAGNESIUM 2.1 MG/DL (1.5-2.5); POTASSIUM 3.2 MEQ/L (3.5-5.1)
[2017-05-08 06:14] LABS: CALCIUM-PROTEIN CORRECTED 7.6 MG/DL (8.5-10.1)
[2017-05-08] MEDS: DEXT 5%-NACL 0.45% 1000 ML INJ 1,000 ML IV SCH ×2 (06:42→23:42)
[2017-05-08] MEDS: POTASSIUM CHLOR 20 MEQ PREMIX 100 ML IV PRN ×4 (06:42→13:22)
--- NOTE | 2017-05-08 07:16 | PQ ---
Physician Query Response Document PATIENT: VANESSA CHAVEZ : 1980 ADMIT DATE: 04/28/2017 10:58 AM DISCH DATE: RESPONDING PROVIDER #: [email or web address] QUERY TEXT: Sepsis Query Based on your medical judgement, can you further clarify the folowiin. Sepsis (SIRS due to an infection) 2. Sepsis with Organ Dysfunction 3. A localized Infection only 4. Another condition - please specify 5. Unable to determine - please explain. Depending on your selection above, please indicate one of the below if applicable: - Sepsis was present on Admission - Sepsis developed after admission The patient's Clinical Indicators include: 04/28/17 ADMISSION DIAGNOSIS: ILEUS, POSSIBLE ASPIRATION, MALFUNCTIONING J TUBE, INTRACTABLE NAUSEA/ VOMITING PER 04/29/17 ID CONSULT - Possible sepsis on admission. Possible aspiration pneumonia Query created by: Rosey Reddy on 05/02/2017 9:19 AM RESPONSE TEXT: Pneumonia on admission. Met criteria for severe sepsis. Electronically signed by: Ashwin Estrada MD 05/08/2017 7:12 AM
[2017-05-08] MEDS: POLYETHYLENE GLYCOL 17 GM PKG DOBHOFF SCH (08:06)
[2017-05-08] MEDS: CHLORHEXIDINE 0.12% (ORAL KIT) 15 ML CUP MT SCH ×2 (08:07→20:00)
[2017-05-08] MEDS: HEPARIN SODIUM - SQ 10,000 UNITS/ML VIAL SQ SCH ×2 (08:36→23:42)
[2017-05-08] MEDS: FLUDROCORTISONE ACETATE 0.1 MG TAB PO SCH (08:36)
[2017-05-08] MEDS: SODIUM CHLORIDE 0.9% FLUSH 10 ML FLUSH IV FLUSH SCH ×2 (08:36→21:00)
[2017-05-08] MEDS: TOPIRAMATE 100 MG TAB PO SCH ×2 (08:36→23:42)
[2017-05-08] MEDS: PANTOPRAZOLE SODIUM 40 MG VIAL IV PUSH SCH (08:37)
[2017-05-08] MEDS: POTASSIUM CHLORIDE 25 MEQ EFFERVESCENT TAB PEG SCH (08:38)
[2017-05-08] MEDS: PHENYTOIN SUSP 100 MG/4 ML CUP PO SCH ×2 (08:38→23:42)
[2017-05-08] MEDS: ASPIRIN EC 81 MG TABEC PO SCH ×2 (08:38→08:39)
--- NOTE | 2017-05-08 14:00 | HHI.PR ---
Subjective Remarks The patient was resting in bed comfortably. His eyes were open and he was tracking. Discussed with nursing at the bedside. Objective Vitals Vital Signs Date Time Temp Pulse Resp B/P Pulse Ox O2 Delivery O2 Flow Rate FiO2 05/08/17 12:00 97.5 90 28 116/65 95 05/08/17 12:00 90 05/08/17 08:00 97.7 81 25 131/76 100 05/08/17 08:00 81 05/08/17 07:38 100 Nasal Cannula 2.00 05/08/17 07:00 100 Nasal Cannula 2.00 05/08/17 06:00 78 05/08/17 04:00 97.6 83 26 131/72 100 05/08/17 04:00 83 05/08/17 02:00 82 05/08/17 00:50 100 Nasal Cannula 2.00 05/08/17 00:00 97.2 63 22 118/64 100 05/08/17 00:00 63 05/07/17 20:55 100 Nasal Cannula 2.00 05/07/17 20:49 82 05/07/17 20:00 97.6 88 31 132/75 96 05/07/17 19:00 98 Nasal Cannula 2.00 05/07/17 16:00 75 05/07/17 16:00 96.8 73 26 127/58 100 I/O 05/07/17 05/07/17 05/07/17 05/08/17 05/08/17 05/08/17 06:59 14:59 22:59 06:59 14:59 22:59 Intake Total 935 ml 978 ml 825 ml 895 ml Output Total 750 ml 850 ml 600 ml 500 ml Balance 185 ml 128 ml 225 ml 395 ml IV Total 750 ml 893 ml 625 ml 625 ml Tube Feeding 85 ml 85 ml 80 ml 70 ml Other 100 ml 120 ml 200 ml Output Urine Total 750 ml 700 ml 600 ml 500 ml Stool Total 150 ml # Bowel Movements 3 2 2 Result Diagram: 05/08/17 0507 05/08/17 0507 Imaging Last Impressions Abdomen X-Ray 05/05/17 0000 Signed Impressions: Service Date/Time: Friday, May 05, 2017 12:59 - CONCLUSION: 1. Stable examination of the abdomen with mild diffuse gaseous distention of the bowel. However, no transition point is present to suggest bowel obstruction. 2. Chronically dislocated hips bilaterally. Mg Darling MD Chest X-Ray 05/04/17 0400 Signed Impressions: Service Date/Time: Thursday, May 04, 2017 04:58 - CONCLUSION: 1. Patchy alveolar disease characteristic of edema or pneumonia. There has been no significant change when compared to the prior exam. Young Queen MD Abdomen/Pelvis CT 05/02/17 0000 Signed Impressions: Service Date/Time: Tuesday, May 02, 2017 17:14 - CONCLUSION: 1. Persistent dilatation of the small bowel which is now more fluid-filled than on the prior study. No inflammatory process or stranding lesion observed. No free air. Small amount of free fluid. 2. Development of a small right effusion. 3. Bibasilar pulmonary infiltrates. 4. Hiatal hernia. 5. Prior splenectomy. Gaston Wagner Jr., MD Tube Change 04/30/17 0000 Signed Impressions: Service Date/Time: Sunday, April 30, 2017 16:39 - CONCLUSION: Uncomplicated gastrojejunostomy tube exchange as above. Jose Allison MD Objective Remarks GENERAL: Resting comfortably in bed. SKIN: Warm and dry. HEAD: Normocephalic. EYES: No scleral icterus, no drainage. NECK: trachea midline. Orally intubated. CARDIOVASCULAR: RRR, no murmurs, gallops, or rubs. No JVD. RESPIRATORY: Bilateral breath sounds. Comfortable pattern. Minimal secretions. GASTROINTESTINAL: Abdomen soft, non-tender, slightly distended. PEG in place. Decreased bowel sounds. MUSCULOSKELETAL: No cyanosis, or edema. Well perfused. NEURO: Contracted, non-verbal. Cerebral palsy. Eyes are tracking. Medications and IVs Current Medications Medications (Trade) Dose Ordered Sig/Carlotta Route Start Time Stop Time Status Last Admin (NS Flush) 2 ml UNSCH PRN IV FLUSH 04/28/17 08:30 (NS Flush) 2 ml BID IV FLUSH 04/28/17 09:00 05/08/17 08:36 (Zofran Inj) 4 mg Q6H PRN IVP 04/28/17 08:30 04/28/17 10:15 (Heparin Inj) 5,000 units Q12H SQ 04/28/17 08:30 05/08/17 08:36 (Narcan Inj) 0.4 mg UNSCH PRN IV 04/28/17 08:30 (Milk Of Magnesia Liq) 30 ml Q12H PRN PO 04/28/17 08:30 (Senokot) 17.2 mg Q12H PRN PO 04/28/17 08:30 (Dulcolax Supp) 10 mg DAILY PRN RECTAL 04/28/17 08:30 (Lactulose Liq) 30 ml DAILY PRN PO 04/28/17 08:30 (Xanax) 0.5 mg Q8H PRN PO 04/28/17 10:15 05/08/17 12:58 (Ecotrin Ec) 81 mg DAILY PO 04/29/17 09:00 05/06/17 08:06 (Florinef) 0.2 mg DAILY PO 04/29/17 09:00 05/08/17 08:36 (Dilantin Liq) 100 mg BID PO 04/28/17 21:00 05/08/17 08:38 (Topamax) 100 mg BID PO 04/28/17 21:00 05/08/17 08:36 (Desyrel) 25 mg DAILY PRN PO 04/28/17 10:15 (Pill Splitter) 1 ea UNSCH PRN OTHER 04/28/17 10:30 (D50w (Vial) Inj) 50 ml UNSCH PRN IV 04/28/17 14:15 (Glucagon Inj) 1 mg UNSCH PRN OTHER 04/28/17 14:15 (NovoLIN R SUPPLEMENTAL SCALE) 1 Q4H SQ 04/28/17 15:00 Miscellaneous Information Patient in critical care unit? Ass... Q361D .XX 04/28/17 21:15 (Haldol Inj) 5 mg Q4H PRN IV 04/28/17 23:30 04/29/17 21:59 Lorazepam 0.5 mg 0.5 mg Q4H PRN IV 04/28/17 23:45 05/07/17 03:39 (D5W-1/2 NS 1000 ml Inj) 1,000 ml @ 75 mls/hr [id number] IV 04/29/17 10:00 05/08/17 06:42 (Lopressor) 25 mg Q12H PO 04/29/17 18:00 05/08/17 05:13 (Miralax) 17 gm DAILY DOBHOFF 04/30/17 17:00 05/03/17 08:30 (Urecholine) 12.5 mg Q8HR PEG 04/30/17 22:00 05/08/17 05:13 (Peridex 0.12% Liq) 15 ml BID@08,20 MT 05/02/17 20:00 05/08/17 08:07 (Mycostatin) 500,000 units Q8HR PO 05/03/17 22:00 05/08/17 05:13 Potassium Bicarb/ Potassium Chloride 50 meq 50 meq DAILY PEG 05/06/17 11:45 05/08/17 08:38 Potassium Chloride 100 ml @ 50 mls/hr Q2H PRN IV 05/06/17 11:45 (KCl 20 Meq Premix Inj) 100 ml @ 50 mls/hr Q2H PRN IV 05/06/17 11:45 05/08/17 13:22 Potassium Bicarb/ Potassium Chloride 50 meq 50 meq UNSCH PRN PO 05/06/17 11:45 Potassium Chloride 100 ml @ 25 mls/hr UNSCH PRN IV 05/06/17 11:45 Potassium Chloride 100 ml @ 50 mls/hr Q2H PRN IV 05/06/17 11:45 (Magnesium Sulfate Inj/NS Inj) 100 ml @ 50 mls/hr UNSCH PRN IV 05/06/17 11:45 Magnesium Oxide 800 mg 800 mg UNSCH PRN PO 05/06/17 11:45 (Magnesium Sulfate Inj/NS Inj) 100 ml @ 50 mls/hr UNSCH PRN IV 05/06/17 11:45 05/07/17 06:06 Potassium Phosphate 2000 mg 2,000 mg Q4H PRN PO 05/06/17 11:45 (Sodium Phosphate Inj/NS 250 ml Inj) 250 ml @ 42 mls/hr UNSCH PRN IV 05/06/17 11:45 Potassium Phosphate 2000 mg 2,000 mg UNSCH PRN PO/TUBE 05/06/17 11:45 (Potassium Phosphate Inj/NS 250 ml Inj) 260 ml @ 42 mls/hr UNSCH PRN IV 05/06/17 11:45 (Protonix) 40 mg Q12HR PO 05/08/17 21:00 A/P Assessment and Plan Acute respiratory failure He has a history of aspiration pneumonia. S/p intubation/ extubation. Satting well on 2L NC at this time. - oxygen and nebs as needed. - DC antibiotics per infectious disease. - suction as needed. Severe hypokalemia/ hypocalcemia K+ was 1.9. Improving. - PO and IV repletion ordered. - check mg and phos levels. Stable. - telemetry. - ICU electrolyte replacement protocol. Ileus/ GIB/ Esophagitis S/p G-J tube exchange by IR 04/30GI consult appreciated. S/p EGD which showed: Severe esophagitis j shape stomach g/j tube in stomach going into pylorus-could not advance into duodenum no active bleeding. Repeat KUB with distention. - On Protonix. - continue nystatin. - continue bethanechol. - follow CBC and transfuse as needed. - repeat KUB. - resume tube feeds with Glucerna 1.5 at 45 ml/hr. Bacteremia 04/28 BC 2/4 sets: Staph Epi, coag negative staph; 04/29 BC: GPC 2 /4 bottles. ID consult appreciated. - antibiotics changed to nafcillin by firestopper technician. Was on vancomycin and Zosyn. Blood cultures thought to be contaminants per ID. The patient will be monitored off of antibiotics. - follow repeat blood cultures. No growth, final. History of seizures No seizure activity. - Monitor neuro status closely, minimize sedation. - Continue with antiseizure meds. On Dilantin 100 mg BID. On Topamax 100 mg BID. - seizure precautions. DVT prophylaxis with SCDs. Discharge Planning Transfer to floor. Anticipate d/c home in 1-2 days Ayaan Ordoñez DO May 08, 2017 13:59
--- NOTE | 2017-05-08 14:55 | RADRPT ---
EXAM DATE/TIME: 05/08/2017 14:28 [facility] COMPARISON: ABDOMEN KUB ONLY, January 06, 2014, 9:00. ABDOMEN KUB ONLY, May 13, 2016, 8:26. ABDOMEN KUB ONLY, May 05, 2017, 12:59. INDICATIONS : Ileus MEDICAL HISTORY : seizures, scoliosis, cerebral palsy SURGICAL HISTORY : Splenectomy. J tube ENCOUNTER: Initial ACUITY: 1 week PAIN SCORE: Non-responsive. LOCATION: Bilateral abdomen FINDINGS: Supine view of the abdomen was performed. Today's exam is compared to the prior studies. There is a f eeding tube in place. There continues to be some air-filled loops of small large bowel without signif icant change compared to the prior studies dating back to 2013.. No change in the skeletal deformity. CONCLUSION: Stable gaseous distention of the GI tract without significant change compared to the prior studies da ting back to 2013. Nolan Moses MD on May 08, 2017 at 14:51 Board Certified Radiologist. This report was verified electronically.
[2017-05-08 23:16] LABS: BICARBONATE 19.2 MEQ/L (21.0-32.0)
[2017-05-08] MEDS: PANTOPRAZOLE SOD 40 MG DELAYED RELEASE TAB PO SCH (23:42)
[2017-05-09] VITALS (8 sets, daily range): BP systolic 123–142; BP diastolic 62–73; PULSE 100–113; RESP 19–26; TEMP 97.7–98.3; O2SAT 96–100
[2017-05-09] MEDS: INSULIN NovoLIN REGULAR SUPPLEMENTAL SCALE SQ SCH ×6 (03:00→23:00)
[2017-05-09] MEDS: NYSTATIN 500,000 UNIT TAB PO SCH ×3 (04:59→21:05)
[2017-05-09] MEDS: ALPRAZolam 0.5 MG TAB PO PRN ×2 (04:59→13:52)
[2017-05-09] MEDS: BETHANECHOL CHL 25 MG TAB PEG SCH ×3 (05:00→21:05)
[2017-05-09] MEDS: METOPROLOL TARTRATE 25 MG TAB PO SCH ×2 (05:00→18:00)
[2017-05-09 07:45] LABS: CRITICAL VALUE YES
[2017-05-09] MEDS: CHLORHEXIDINE 0.12% (ORAL KIT) 15 ML CUP MT SCH ×2 (08:00→20:00)
--- NOTE | 2017-05-09 08:28 | HHI.FPPN ---
Subjective Remarks tachy coughing alert TELE REVIEWED LABS REVIEWED Objective Vitals Vital Signs Date Time Temp Pulse Resp B/P Pulse Ox O2 Delivery O2 Flow Rate FiO2 05/09/17 04:00 97.8 106 19 138/69 100 05/09/17 00:00 97.9 112 19 134/63 100 05/08/17 20:30 Nasal Cannula 2.00 05/08/17 20:00 98.4 100 19 135/73 100 05/08/17 19:54 106 05/08/17 16:30 97.9 110 20 133/69 96 05/08/17 12:00 97.5 90 28 116/65 95 05/08/17 12:00 90 I/O 05/08/17 05/08/17 05/08/17 05/09/17 05/09/17 05/09/17 07:00 15:00 23:00 07:00 15:00 23:00 Intake Total 895 ml 1074 ml Output Total 500 ml 1150 ml Balance 395 ml -76 ml IV Total 625 ml 901 ml Tube Feeding 70 ml 73 ml Other 200 ml 100 ml Output Urine Total 500 ml 1150 ml # Bowel Movements 2 2 Result Diagram: 05/08/17 0507 05/08/17 2240 Objective Remarks GENERAL: INCR WOB, COUGHING SKIN: Warm and dry. HEAD: Atraumatic. Normocephalic. EYES: Pupils equal and round. No scleral icterus. No injection or drainage. ENT: No nasal bleeding or discharge. Mucous membranes pink and moist. NECK: Trachea midline. No JVD. CARDIOVASCULAR: Regular rate and rhythm. RESPIRATORY: B R/R, SL CRACKLES AT BASE GASTROINTESTINAL: Abdomen soft, non-tender, nondistended. Hepatic and splenic margins not palpable. MUSCULOSKELETAL: Extremities without clubbing, cyanosis, or edema. No obvious deformities. NEUROLOGICAL: Motor grossly within normal limits. 1 out of 5 muscle strength in the arms and legs. PSYCHIATRIC: alert, encephalopathic Medications and IVs Current Medications Medications (Trade) Dose Ordered Sig/Carlotta Route Start Time Stop Time Status Last Admin (NS Flush) 2 ml UNSCH PRN IV FLUSH 04/28/17 08:30 (NS Flush) 2 ml BID IV FLUSH 04/28/17 09:00 05/09/17 09:00 (Zofran Inj) 4 mg Q6H PRN IVP 7/29/17 08:30 04/28/17 10:15 (Heparin Inj) 5,000 units Q12H SQ 04/28/17 08:30 05/09/17 09:09 (Narcan Inj) 0.4 mg UNSCH PRN IV 04/28/17 08:30 (Milk Of Magnesia Liq) 30 ml Q12H PRN PO 04/28/17 08:30 (Senokot) 17.2 mg Q12H PRN PO 04/28/17 08:30 (Dulcolax Supp) 10 mg DAILY PRN RECTAL 04/28/17 08:30 (Lactulose Liq) 30 ml DAILY PRN PO 04/28/17 08:30 (Xanax) 0.5 mg Q8H PRN PO 04/28/17 10:15 05/09/17 04:59 (Ecotrin Ec) 81 mg DAILY PO 04/29/17 09:00 05/09/17 09:09 (Florinef) 0.2 mg DAILY PO 04/29/17 09:00 05/09/17 09:09 (Dilantin Liq) 100 mg BID PO 04/28/17 21:00 05/09/17 09:09 (Topamax) 100 mg BID PO 04/28/17 21:00 05/09/17 09:09 (Desyrel) 25 mg DAILY PRN PO 04/28/17 10:15 (Pill Splitter) 1 ea UNSCH PRN OTHER 04/28/17 10:30 (D50w (Vial) Inj) 50 ml UNSCH PRN IV 04/28/17 14:15 (Glucagon Inj) 1 mg UNSCH PRN OTHER 04/28/17 14:15 (NovoLIN R SUPPLEMENTAL SCALE) 1 Q4H SQ 04/28/17 15:00 Miscellaneous Information Patient in critical care unit? Ass... Q361D .XX 04/28/17 21:15 (Haldol Inj) 5 mg Q4H PRN IV 04/28/17 23:30 04/29/17 21:59 Lorazepam 0.5 mg 0.5 mg Q4H PRN IV 04/28/17 23:45 05/07/17 03:39 (D5W-1/2 NS 1000 ml Inj) 1,000 ml @ 75 mls/hr [id number] IV 04/29/17 10:00 05/09/17 09:10 (Lopressor) 25 mg Q12H PO 04/29/17 18:00 05/09/17 05:00 (Miralax) 17 gm DAILY DOBHOFF 04/30/17 17:00 05/09/17 09:09 (Urecholine) 12.5 mg Q8HR PEG 04/30/17 22:00 05/09/17 05:00 (Peridex 0.12% Liq) 15 ml BID@08,20 MT 05/02/17 20:00 05/09/17 08:00 (Mycostatin) 500,000 units Q8HR PO 05/03/17 22:00 05/09/17 04:59 (Protonix) 40 mg Q12HR PO 05/08/17 21:00 05/09/17 09:09 A/P Assessment and Plan VDRF, RESOLVED TACHY/ ARRHYTHMIA ASPIRATION, RECURRENT GIB ILEUS LACTIC ACIDOSIS GP BACTEREMIA SIM Malfunctioning J tube. IR consulted repositioned J-tube Cerebral palsy. SZ PLAN: CXR MONITOR TONIGHT ON TELE DUE TO TACHYCARDIA LOWER IVF APPEARS FLUID OVERLOADED AM CBC, BMP NGT OUT Dilantin 100 mg BID. Topamax 100 mg BID Florinef 0.2 mg daily. Protonix MONITOR OFF IV abx NOW SSI DVT prophylaxis with SCDs. TELE Andrew St MD May 09, 2017 08:28
[2017-05-09] MEDS: SODIUM CHLORIDE 0.9% FLUSH 10 ML FLUSH IV FLUSH SCH ×2 (09:00→21:00)
[2017-05-09] MEDS: POLYETHYLENE GLYCOL 17 GM PKG DOBHOFF SCH (09:09)
[2017-05-09] MEDS: FLUDROCORTISONE ACETATE 0.1 MG TAB PO SCH (09:09)
[2017-05-09] MEDS: ASPIRIN EC 81 MG TABEC PO SCH (09:09)
[2017-05-09] MEDS: TOPIRAMATE 100 MG TAB PO SCH ×2 (09:09→21:05)
[2017-05-09] MEDS: HEPARIN SODIUM - SQ 10,000 UNITS/ML VIAL SQ SCH ×2 (09:09→21:05)
[2017-05-09] MEDS: PANTOPRAZOLE SOD 40 MG DELAYED RELEASE TAB PO SCH ×2 (09:09→21:05)
[2017-05-09] MEDS: PHENYTOIN SUSP 100 MG/4 ML CUP PO SCH ×2 (09:09→21:05)
[2017-05-09] MEDS: DEXT 5%-NACL 0.45% 1000 ML INJ 1,000 ML IV SCH (09:10)
--- NOTE | 2017-05-09 12:59 | RADRPT ---
EXAM DATE/TIME: 05/09/2017 12:37 [facility] COMPARISON: CHEST SINGLE AP, May 04, 2017, 4:58. INDICATIONS : Cough. MEDICAL HISTORY : Seizures. Scoliosis, Bradycardia, Cerebral palsy. SURGICAL HISTORY : Splenectomy. SocruiseTube ENCOUNTER: Subsequent ACUITY: 2 weeks PAIN SCORE: 0/10 LOCATION: Bilateral chest FINDINGS: Course perihilar and basilar rank opacity similar to prior. Cardiac contours are grossly unchanged ac counting for projection. Severe scoliotic curvature involving the spine. CONCLUSION: Stable abnormal chest appearance Mg Gomez MD on May 09, 2017 at 12:57 Board Certified Radiologist. This report was verified electronically.
[2017-05-09 20:37] LABS: BICARBONATE 19.7 MEQ/L (21.0-32.0)
[2017-05-09 20:47] LABS: POTASSIUM 4.7 MEQ/L (3.5-5.1)
[2017-05-10] VITALS (8 sets, daily range): BP systolic 127–143; BP diastolic 67–82; PULSE 69–98; RESP 16–24; TEMP 97.5–98.3; O2SAT 96–100
[2017-05-10] MEDS: INSULIN NovoLIN REGULAR SUPPLEMENTAL SCALE SQ SCH ×6 (03:00→23:00)
[2017-05-10] MEDS: METOPROLOL TARTRATE 25 MG TAB PO SCH ×2 (05:51→17:41)
[2017-05-10] MEDS: BETHANECHOL CHL 25 MG TAB PEG SCH ×3 (05:51→21:28)
[2017-05-10] MEDS: NYSTATIN 500,000 UNIT TAB PO SCH ×3 (05:51→21:29)
[2017-05-10 07:24] LABS: HEMATOCRIT 28.8 % (39.0-51.0); MEAN CELL VOLUME 79.4 FL (80.0-100.0); MEAN CORPUSCULAR HEMOGLOBIN 25.3 PG (27.0-34.0); MEAN CORPUSCULAR HGB CONC 31.8 % (32.0-36.0); PLATELET COUNT 471 TH/MM3 (150-450); RED BLOOD COUNT 3.62 MIL/MM3 (4.50-5.90); RED CELL DISTRIBUTION WIDTH 19.8 % (11.6-17.2); REVIEW FLAG FINAL; WHITE BLOOD COUNT 13.7 TH/MM3 (4.0-11.0)
[2017-05-10 07:52] LABS: BICARBONATE 24.8 MEQ/L (21.0-32.0); POTASSIUM 3.3 MEQ/L (3.5-5.1)
[2017-05-10] MEDS: SODIUM CHLORIDE 0.9% FLUSH 10 ML FLUSH IV FLUSH SCH ×2 (09:00→21:00)
[2017-05-10] MEDS: CHLORHEXIDINE 0.12% (ORAL KIT) 15 ML CUP MT SCH ×2 (12:51→20:00)
[2017-05-10] MEDS: HEPARIN SODIUM - SQ 10,000 UNITS/ML VIAL SQ SCH ×2 (12:52→21:25)
[2017-05-10] MEDS: POLYETHYLENE GLYCOL 17 GM PKG DOBHOFF SCH (12:52)
[2017-05-10] MEDS: PHENYTOIN SUSP 100 MG/4 ML CUP PO SCH ×2 (12:52→21:25)
[2017-05-10] MEDS: FLUDROCORTISONE ACETATE 0.1 MG TAB PO SCH (12:53)
[2017-05-10] MEDS: PANTOPRAZOLE SOD 40 MG DELAYED RELEASE TAB PO SCH ×2 (12:53→21:25)
[2017-05-10] MEDS: ASPIRIN EC 81 MG TABEC PO SCH (12:53)
[2017-05-10] MEDS: TOPIRAMATE 100 MG TAB PO SCH ×2 (12:53→21:25)
[2017-05-10] MEDS: DEXT 5%-NACL 0.45% 1000 ML INJ 1,000 ML IV SCH (12:54)
--- NOTE | 2017-05-10 14:07 | HHI.FPPN ---
Subjective Remarks GT CLOGGED TELE REVIEWED D/W RN PT ALERT, AGITATED WHEN APPROACHED Objective Vitals Vital Signs Date Time Temp Pulse Resp B/P Pulse Ox O2 Delivery O2 Flow Rate FiO2 05/10/17 12:54 98 Nasal Cannula 2.00 05/10/17 12:00 97.5 82 18 135/74 100 05/10/17 08:00 97.5 79 18 136/71 96 05/10/17 05:30 98.3 98 24 139/67 100 05/09/17 23:40 98.3 110 24 142/72 96 05/09/17 21:15 Nasal Cannula 2.00 05/09/17 20:00 104 05/09/17 19:42 98.1 104 26 128/62 98 05/09/17 16:00 97.8 113 20 129/72 100 I/O 05/09/17 05/09/17 05/09/17 05/10/17 05/10/17 05/10/17 06:59 14:59 22:59 06:59 14:59 22:59 Intake Total 0 ml 0 ml 0 ml Output Total 1550 ml 1200 ml 1100 ml Balance -1550 ml -1200 ml -1100 ml Intake Oral 0 ml 0 ml 0 ml Output Urine Total 1550 ml 1200 ml 1100 ml # Bowel Movements 2 0 0 Result Diagram: 05/10/17 0709 05/10/17 0709 Objective Remarks GENERAL: CALM SKIN: Warm and dry. HEAD: Atraumatic. Normocephalic. EYES: Pupils equal and round. No scleral icterus. No injection or drainage. ENT: No nasal bleeding or discharge. Mucous membranes pink and moist. NECK: Trachea midline. No JVD. CARDIOVASCULAR: Regular rate and rhythm. RESPIRATORY: B R/R, SL CRACKLES AT BASE GASTROINTESTINAL: Abdomen soft, non-tender, nondistended. Hepatic and splenic margins not palpable. MUSCULOSKELETAL: Extremities without clubbing, cyanosis, or edema. No obvious deformities. NEUROLOGICAL: Motor grossly within normal limits. 1 out of 5 muscle strength in the arms and legs. PSYCHIATRIC: alert, encephalopathic Medications and IVs Current Medications Medications (Trade) Dose Ordered Sig/Carlotta Route Start Time Stop Time Status Last Admin (NS Flush) 2 ml UNSCH PRN IV FLUSH 04/28/17 08:30 (NS Flush) 2 ml BID IV FLUSH 04/28/17 09:00 05/09/17 21:00 (Zofran Inj) 4 mg Q6H PRN IVP 04/28/17 08:30 04/28/17 10:15 (Heparin Inj) 5,000 units Q12H SQ 04/28/17 08:30 05/10/17 12:52 (Narcan Inj) 0.4 mg UNSCH PRN IV 04/28/17 08:30 (Milk Of Magnesia Liq) 30 ml Q12H PRN PO 04/28/17 08:30 (Senokot) 17.2 mg Q12H PRN PO 04/28/17 08:30 (Dulcolax Supp) 10 mg DAILY PRN RECTAL 04/28/17 08:30 (Lactulose Liq) 30 ml DAILY PRN PO 04/28/17 08:30 (Xanax) 0.5 mg Q8H PRN PO 04/28/17 10:15 05/09/17 13:52 (Ecotrin Ec) 81 mg DAILY PO 04/29/17 09:00 05/10/17 12:53 (Florinef) 0.2 mg DAILY PO 04/29/17 09:00 05/10/17 12:53 (Dilantin Liq) 100 mg BID PO 04/28/17 21:00 05/10/17 12:52 (Topamax) 100 mg BID PO 04/28/17 21:00 05/10/17 12:53 (Desyrel) 25 mg DAILY PRN PO 04/28/17 10:15 (Pill Splitter) 1 ea UNSCH PRN OTHER 04/28/17 10:30 (D50w (Vial) Inj) 50 ml UNSCH PRN IV 04/28/17 14:15 (Glucagon Inj) 1 mg UNSCH PRN OTHER 04/28/17 14:15 (NovoLIN R SUPPLEMENTAL SCALE) 1 Q4H SQ 04/28/17 15:00 Miscellaneous Information Patient in critical care unit? Ass... Q361D .XX 04/28/17 21:15 (Haldol Inj) 5 mg Q4H PRN IV 04/28/17 23:30 04/29/17 21:59 Lorazepam 0.5 mg 0.5 mg Q4H PRN IV 04/28/17 23:45 05/07/17 03:39 (D5W-1/2 NS 1000 ml Inj) 1,000 ml @ 5 mls/hr Q24H IV 04/29/17 10:00 05/10/17 12:54 (Lopressor) 25 mg Q12H PO 04/29/17 18:00 05/10/17 05:51 (Miralax) 17 gm DAILY DOBHOFF 04/30/17 17:00 05/10/17 12:52 (Urecholine) 12.5 mg Q8HR PEG 04/30/17 22:00 05/10/17 05:51 (Peridex 0.12% Liq) 15 ml BID@08,20 MT 05/02/17 20:00 05/10/17 12:51 (Mycostatin) 500,000 units Q8HR PO 05/03/17 22:00 05/10/17 05:51 (Protonix) 40 mg Q12HR PO 05/08/17 21:00 05/10/17 12:53 A/P Assessment and Plan VDRF, RESOLVED LEUKOCYTOSIS GT CLOGGED HYPOKALEMIA TACHY/ ARRHYTHMIA ASPIRATION, RECURRENT GIB ILEUS LACTIC ACIDOSIS GP BACTEREMIA SIM Malfunctioning J tube. IR consulted repositioned J-tube Cerebral palsy. SZ PLAN: RESTART IV ZOSYN FOR PNA REPLACE LYTES WORKUP LEUKOCYTOSIS LOWERED IVF - FLUID OVERLOADED AM CBC, BMP NGT OUT Dilantin 100 mg BID. Topamax 100 mg BID Florinef 0.2 mg daily. Protonix MONITOR OFF IV abx NOW SSI DVT prophylaxis with SCDs. TELE Andrew St MD May 10, 2017 14:07
[2017-05-10] MEDS ORDERED: POTASSIUM CHLOR 40 MEQ PREMIX 100 ML IV ONE (14:15)
[2017-05-10] MEDS: PIPERACIL-TAZO 3.375 GM PREMIX 50 ML IV SCH ×2 (16:46→21:25)
[2017-05-10] MEDS ORDERED: POTASSIUM CHLORIDE 20 MEQ PWD PACKET G-TUBE ONE (18:30)
[2017-05-11] VITALS (9 sets, daily range): BP systolic 106–145; BP diastolic 56–72; PULSE 80–116; RESP 16–19; TEMP 97.3–98.3; O2SAT 93–100
[2017-05-11] MEDS: INSULIN NovoLIN REGULAR SUPPLEMENTAL SCALE SQ SCH ×6 (03:00→22:53)
[2017-05-11] MEDS: PIPERACIL-TAZO 3.375 GM PREMIX 50 ML IV SCH ×2 (03:27→09:11)
[2017-05-11] MEDS: METOPROLOL TARTRATE 25 MG TAB PO SCH ×2 (05:24→18:00)
[2017-05-11] MEDS: NYSTATIN 500,000 UNIT TAB PO SCH ×3 (05:25→21:06)
[2017-05-11] MEDS: ALPRAZolam 0.5 MG TAB PO PRN ×2 (05:25→21:07)
[2017-05-11] MEDS: BETHANECHOL CHL 25 MG TAB PEG SCH ×3 (05:25→21:06)
--- NOTE | 2017-05-11 07:33 | HHI.FPPN ---
Objective Vitals Vital Signs Date Time Temp Pulse Resp B/P Pulse Ox O2 Delivery O2 Flow Rate FiO2 05/11/17 04:32 98.3 116 16 130/56 97 05/11/17 04:00 Nasal Cannula 2.00 05/11/17 00:00 Nasal Cannula 2.00 05/10/17 23:42 97.8 92 16 127/73 100 05/10/17 21:17 97.6 86 16 143/82 100 05/10/17 20:00 69 05/10/17 20:00 Nasal Cannula 2.00 05/10/17 17:15 100 Nasal Cannula 2.00 05/10/17 16:00 97.9 87 18 139/78 100 05/10/17 12:54 98 Nasal Cannula 2.00 05/10/17 12:00 97.5 82 18 135/74 100 05/10/17 08:00 97.5 79 18 136/71 96 I/O 05/10/17 05/10/17 05/10/17 05/11/17 05/11/17 05/11/17 07:00 15:00 23:00 07:00 15:00 23:00 Intake Total 0 ml 1303 ml 1160 ml 0 ml Output Total 1100 ml 1000 ml 850 ml 1550 ml Balance -1100 ml 303 ml 310 ml -1550 ml Intake Oral 0 ml 0 ml 0 ml 0 ml IV Total 737 ml 505 ml Tube Feeding 416 ml 655 ml Other 150 ml Output Urine Total 1100 ml 1000 ml 850 ml 1550 ml # Bowel Movements 0 2 1 1 Result Diagram: 05/10/17 0709 05/10/17 0709 Objective Remarks GENERAL: CALM SKIN: Warm and dry. HEAD: Atraumatic. Normocephalic. EYES: Pupils equal and round. No scleral icterus. No injection or drainage. ENT: No nasal bleeding or discharge. Mucous membranes pink and moist. NECK: Trachea midline. No JVD. CARDIOVASCULAR: Regular rate and rhythm. RESPIRATORY: B R/R, SL CRACKLES AT BASE GASTROINTESTINAL: Abdomen soft, non-tender, nondistended. Hepatic and splenic margins not palpable. MUSCULOSKELETAL: Extremities without clubbing, cyanosis, or edema. No obvious deformities. NEUROLOGICAL: Motor grossly within normal limits. 1 out of 5 muscle strength in the arms and legs. PSYCHIATRIC: alert, encephalopathic A/P Assessment and Plan VDRF, RESOLVED LEUKOCYTOSIS GT CLOGGED HYPOKALEMIA TACHY/ ARRHYTHMIA ASPIRATION, RECURRENT GIB ILEUS LACTIC ACIDOSIS GP BACTEREMIA SIM Malfunctioning J tube. IR consulted repositioned J-tube Cerebral palsy. SZ PLAN: RESTART IV ZOSYN FOR PNA REPLACE LYTES WORKUP LEUKOCYTOSIS LOWERED IVF - FLUID OVERLOADED AM CBC, BMP NGT OUT Dilantin 100 mg BID. Topamax 100 mg BID Florinef 0.2 mg daily. Protonix MONITOR OFF IV abx NOW SSI DVT prophylaxis with SCDs. TELE Andrew St MD May 11, 2017 07:33
[2017-05-11] MEDS: CHLORHEXIDINE 0.12% (ORAL KIT) 15 ML CUP MT SCH ×2 (08:00→20:00)
[2017-05-11] MEDS: POLYETHYLENE GLYCOL 17 GM PKG DOBHOFF SCH ×2 (09:00→09:12)
[2017-05-11] MEDS: PHENYTOIN SUSP 100 MG/4 ML CUP PO SCH ×2 (09:10→21:07)
[2017-05-11] MEDS: TOPIRAMATE 100 MG TAB PO SCH ×2 (09:12→21:06)
[2017-05-11] MEDS: ASPIRIN EC 81 MG TABEC PO SCH (09:12)
[2017-05-11] MEDS: FLUDROCORTISONE ACETATE 0.1 MG TAB PO SCH (09:12)
[2017-05-11] MEDS: HEPARIN SODIUM - SQ 10,000 UNITS/ML VIAL SQ SCH ×2 (09:12→21:07)
[2017-05-11] MEDS: PANTOPRAZOLE SOD 40 MG DELAYED RELEASE TAB PO SCH ×2 (09:12→21:07)
[2017-05-11 10:04] LABS: AUTOMATED NEUTROPHIL # 10.7 TH/MM3 (1.8-7.7); BASOPHIL # 0.2 TH/MM3 (0-0.2); BASOPHIL % 1.1 % (0.0-2.0); EOSINOPHIL # 0.2 TH/MM3 (0-0.4); EOSINOPHIL % 1.5 % (0.0-4.0); HEMATOCRIT 28.3 % (39.0-51.0); HEMO FLAGS DIFF FINAL; LYMPH % 16.3 % (9.0-44.0); LYMPHOCYTE # 2.3 TH/MM3 (1.0-4.8); MEAN CELL VOLUME 79.1 FL (80.0-100.0); MEAN CORPUSCULAR HEMOGLOBIN 25.3 PG (27.0-34.0); MEAN CORPUSCULAR HGB CONC 31.9 % (32.0-36.0); MONO % 5.9 % (0.0-8.0); NEUT % 75.2 % (16.0-70.0); PLATELET COUNT 513 TH/MM3 (150-450); RED BLOOD COUNT 3.58 MIL/MM3 (4.50-5.90); RED CELL DISTRIBUTION WIDTH 20.4 % (11.6-17.2); WHITE BLOOD COUNT 14.3 TH/MM3 (4.0-11.0)
[2017-05-11 10:20] LABS: BICARBONATE 24.6 MEQ/L (21.0-32.0); POTASSIUM 4.3 MEQ/L (3.5-5.1)
--- NOTE | 2017-05-11 12:44 | HHI.IDPN ---
Note Infectious Disease Note Remigio is a 36 y/o AAM with CP, contractures, . Notes reviewed. Patient is on nasal canula O2. Looks comfortable. Sleepy. No fever. Repeat blood culture has no growth. 2D ECHO without vegetation. Past Medical History reviewed. Allergies: Coded Allergies: *MDRO Multi-Drug Resistant Organism (Verified Adverse Reaction, Unknown, ) MDR Pseudomonas (sputum) - 11/09/16 OBJECTIVE: Vital Signs Date Time Temp Pulse Resp B/P Pulse Ox O2 Delivery O2 Flow Rate FiO2 05/11/17 08:34 96 Nasal Cannula 2.00 21 05/11/17 08:34 95 05/11/17 08:06 97.9 101 18 145/67 93 05/11/17 04:32 98.3 116 16 130/56 97 05/11/17 04:00 Nasal Cannula 2.00 05/11/17 00:00 Nasal Cannula 2.00 05/10/17 23:42 97.8 92 16 127/73 100 05/10/17 21:17 97.6 86 16 143/82 100 05/10/17 20:00 69 05/10/17 20:00 Nasal Cannula 2.00 05/10/17 17:15 100 Nasal Cannula 2.00 05/10/17 16:00 97.9 87 18 139/78 100 05/10/17 12:54 98 Nasal Cannula 2.00 05/10/17 05/10/17 05/11/17 15:00 23:00 07:00 Intake Total 1303 ml 1160 ml 0 ml Output Total 1000 ml 850 ml 1550 ml Balance 303 ml 310 ml -1550 ml Intake Oral 0 ml 0 ml 0 ml IV Total 737 ml 505 ml Tube Feeding 416 ml 655 ml Other 150 ml Output Urine Total 1000 ml 850 ml 1550 ml # Bowel Movements 2 1 1 Laboratory Tests Test 05/10/17 05/11/17 07:09 07:27 White Blood Count 13.7 TH/MM3 14.3 TH/MM3 Red Blood Count 3.62 MIL/MM3 3.58 MIL/MM3 Hemoglobin 9.2 GM/DL 9.1 GM/DL Hematocrit 28.8 % 28.3 % Mean Corpuscular Volume 79.4 FL 79.1 FL Mean Corpuscular Hemoglobin 25.3 PG 25.3 PG Mean Corpuscular Hemoglobin 31.8 % 31.9 % Concent Red Cell Distribution Width 19.8 % 20.4 % Platelet Count 471 TH/MM3 513 TH/MM3 Mean Platelet Volume 7.3 FL 7.8 FL Neutrophils (%) (Auto) 75.2 % Lymphocytes (%) (Auto) 16.3 % Monocytes (%) (Auto) 5.9 % Eosinophils (%) (Auto) 1.5 % Basophils (%) (Auto) 1.1 % Neutrophils # (Auto) 10.7 TH/MM3 Lymphocytes # (Auto) 2.3 TH/MM3 Monocytes # (Auto) 0.8 TH/MM3 Eosinophils # (Auto) 0.2 TH/MM3 Basophils # (Auto) 0.2 TH/MM3 CBC Comment DIFF FINAL Differential Comment Laboratory Tests Test 05/09/17 05/10/17 05/11/17 19:40 07:09 07:27 Sodium Level 146 MEQ/L 142 MEQ/L 140 MEQ/L Potassium Level 4.7 MEQ/L 3.3 MEQ/L 4.3 MEQ/L Chloride Level 118 MEQ/L 110 MEQ/L 107 MEQ/L Carbon Dioxide Level 19.7 MEQ/L 24.8 MEQ/L 24.6 MEQ/L Anion Gap 8 MEQ/L 7 MEQ/L 8 MEQ/L Blood Urea Nitrogen 4 MG/DL 6 MG/DL 8 MG/DL Creatinine 0.84 MG/DL 0.87 MG/DL 0.87 MG/DL Estimat Glomerular Filtration 127 ML/MIN 122 ML/MIN 122 ML/MIN Rate Random Glucose 74 MG/DL 75 MG/DL 66 MG/DL Calcium Level 7.6 MG/DL 7.9 MG/DL 8.1 MG/DL Imaging Last Impressions Chest X-Ray 05/09/17 0000 Signed Impressions: Service Date/Time: Tuesday, May 09, 2017 12:37 - CONCLUSION: Stable abnormal chest appearance Mg Gomez MD Abdomen X-Ray 05/08/17 0000 Signed Impressions: Service Date/Time: Monday, May 08, 2017 14:28 - CONCLUSION: Stable gaseous distention of the GI tract without significant change compared to the prior studies dating back to 2013. Nolan Moses MD Abdomen/Pelvis CT 05/02/17 0000 Signed Impressions: Service Date/Time: Tuesday, May 02, 2017 17:14 - CONCLUSION: 1. Persistent dilatation of the small bowel which is now more fluid-filled than on the prior study. No inflammatory process or stranding lesion observed. No free air. Small amount of free fluid. 2. Development of a small right effusion. 3. Bibasilar pulmonary infiltrates. 4. Hiatal hernia. 5. Prior splenectomy. Gaston Wagner Jr., MD Tube Change 04/30/17 0000 Signed Impressions: Service Date/Time: Sunday, April 30, 2017 16:39 - CONCLUSION: Uncomplicated gastrojejunostomy tube exchange as above. Jose Allison MD PHYSICAL EXAM GENERAL: NAD. SKIN: No rash. HEENT: No icterus. NECK: supple. No swelling. CHEST: Clear breath sounds. CARDIAC: Nl S1S2. No murmur. ABDOMEN: Soft, no tenderness appreciated. EXTREMITIES: contractures, No edema. Peripheral lines without evidence of infection. Contractures of limbs J tube site ok. Assessment & Plan Aspiration pneumonia. Leucocytosis persistent likely secondary to ongoing aspiration. Staph bacteremia likely contaminants. Diff to clean pt with contractures ? contributing factor. Cerebral Palsy Seizure disorder. Recs: Continue to observe off antibiotics. Clinically doing well. Echo negative for vegetations. Neuro at baseline. Clinically best I have seen him since admission and on prior encounters. Ok to discharge from ID standpoint. His leucocytosis is low grade and likely from chronic secondary aspiration. DC Zosyn IV. Will sign off please call back if any change in clinical condition or questions. Janet Yates MD May 11, 2017 12:44
[2017-05-11] MEDS: SODIUM CHLORIDE 0.9% FLUSH 10 ML FLUSH IV FLUSH SCH ×2 (14:35→21:07)
--- NOTE | 2017-05-11 17:22 | HHI.DCPOC ---
Discharge Care Plan Diagnosis: (1) CP (cerebral palsy) (2) Feeding tube blocked (3) Lobar pneumonia Goals to Promote Your Health * To prevent worsening of your condition and complications * To maintain your health at the optimal level Directions to Meet Your Goals Take your medications as prescribed Follow your dietary instruction Follow activity as directed Keep your appointments as scheduled Take your immunizations and boosters as scheduled If your symptoms worsen call your PCP, if no PCP go to Urgent Care Center or Emergency Room Smoking is Dangerous to Your Health. Avoid second hand smoke Call the 24-hour hour crisis hotline for domestic abuse at Andrew [address] MD May 11, 2017 17:22
--- NOTE | 2017-05-11 17:24 | HHI.DS ---
Discharge Summary Admission Date Apr 28, 2017 at 10:58 Discharge Date: May 11, 2017 Admitting Diagnosis PNA, Vomiting, GJ Tube Abnormality (1) Dyspnea (2) Cardiomyopathy (3) Pneumonia (4) Seizure cerebral (5) Development delay (6) Pain (7) Respiratory failure CBC/BMP: 05/11/17 0727 05/11/17 0727 Significant Findings Laboratory Tests Test 05/08/17 05/09/17 05/10/17 05/11/17 22:40 19:40 07:09 07:27 Chloride Level 117 MEQ/L 118 MEQ/L 110 MEQ/L (98-107) (98-107) (98-107) Carbon Dioxide Level 19.2 MEQ/L 19.7 MEQ/L (21.0-32.0) (21.0-32.0) Blood Urea Nitrogen 2 MG/DL (7-18) 4 MG/DL (7-18) 6 MG/DL (7-18) Calcium Level 7.6 MG/DL 7.6 MG/DL 7.9 MG/DL 8.1 MG/DL (8.5-10.1) (8.5-10.1) (8.5-10.1) (8.5-10.1) Sodium Level 146 MEQ/L (136-145) White Blood Count 13.7 TH/MM3 14.3 TH/MM3 (4.0-11.0) (4.0-11.0) Red Blood Count 3.62 MIL/MM3 3.58 MIL/MM3 (4.50-5.90) (4.50-5.90) Hemoglobin 9.2 GM/DL 9.1 GM/DL (13.0-17.0) (13.0-17.0) Hematocrit 28.8 % 28.3 % (39.0-51.0) (39.0-51.0) Mean Corpuscular Volume 79.4 FL 79.1 FL (80.0-100.0) (80.0-100.0) Mean Corpuscular Hemoglobin 25.3 PG 25.3 PG (27.0-34.0) (27.0-34.0) Mean Corpuscular Hemoglobin 31.8 % 31.9 % Concent (32.0-36.0) (32.0-36.0) Red Cell Distribution Width 19.8 % 20.4 % (11.6-17.2) (11.6-17.2) Platelet Count 471 TH/MM3 513 TH/MM3 (150-450) (150-450) Potassium Level 3.3 MEQ/L (3.5-5.1) Neutrophils (%) (Auto) 75.2 % (16.0-70.0) Neutrophils # (Auto) 10.7 TH/MM3 (1.8-7.7) Random Glucose 66 MG/DL (74-106) PE at Discharge GENERAL: SKIN: Warm and dry. HEAD: Atraumatic. Normocephalic. EYES: Pupils equal and round. No scleral icterus. No injection or drainage. ENT: No nasal bleeding or discharge. Mucous membranes pink and moist. NECK: Trachea midline. No JVD. CARDIOVASCULAR: Regular rate and rhythm. RESPIRATORY: No accessory muscle use. Clear to auscultation. Breath sounds equal bilaterally. GASTROINTESTINAL: Abdomen soft, non-tender, nondistended. Hepatic and splenic margins not palpable. MUSCULOSKELETAL: Extremities without clubbing, cyanosis, or edema. No obvious deformities. NEUROLOGICAL: Awake and alert. No obvious cranial nerve deficits. Motor grossly within normal limits.1 out of 5 muscle strength in the arms and legs. Hospital Course VDRF, RESOLVED LEUKOCYTOSIS GT CLOGGED HYPOKALEMIA TACHY/ ARRHYTHMIA ASPIRATION, RECURRENT GIB ILEUS LACTIC ACIDOSIS GP BACTEREMIA SIM Malfunctioning J tube. IR consulted repositioned J-tube Cerebral palsy. SZ HOSPITAL COURSE AND PLAN WAS TO - RESTART IV ZOSYN FOR PNA REPLACE LYTES WORKUP LEUKOCYTOSIS LOWERED IVF - FLUID OVERLOADED AM CBC, BMP NGT OUT Dilantin 100 mg BID. Topamax 100 mg BID Florinef 0.2 mg daily. Protonix MONITOR OFF IV abx NOW SSI DVT prophylaxis with SCDs. TELE IN [facility] TODAY IF CAN ORGANIZE HOME CARE Discharge Disposition: Disch w/ Home Health Serv Discharge Instructions DIET: Follow Instructions for: On Tube Feeding Activities you can perform: Regular-No Restrictions Continued Medications: Alprazolam (Xanax) 0.5 Mg Tab 0.5 MG PO Q8H PRN ANXIETY Ref [address] (Aspirin 81) 81 Mg Tabdr 81 MG PO DAILY Ref 0 TAB Fludrocortisone (Fludrocortisone) 0.1 Mg Tab 0.2 MG PO DAILY #30 Ref 0 TAB Phenytoin (Phenytoin) 100 Mg/4 Ml Oral.susp 100 MG PO BID Topiramate (Topamax) 100 Mg Tab 100 MG PO BID Control Seizures #60 Ref 0 TAB Trazodone (Trazodone) 50 Mg Tab 25 MG PO PRN PRN Control Depression #90 Ref [address] MD May 11, 2017 17:24
--- NOTE | 2017-05-11 17:29 | HHI.FF ---
Face to Face Verification Diagnosis: (1) Cerebral palsy (2) Lethargy (3) Sepsis (4) Pain (5) Feeding by G-tube (6) Respiratory failure requiring intubation (7) Leukocytosis (8) Feeding tube blocked (9) PNA (pneumonia) Physical Therapy Order: Evaluate and Treat, Improve ambulation, Strength and gait training Occupational Therapy Order: Evaluate and Treat, Improve ADL, Gross motor coordination, Fine motor coordination Speech Therapy Order: To Improve: Speech and communication skills, Cognitive skills, Swallowing Home Health Nursing Order: Medical education Signs/symptoms of disease process Diabetic education CHF education Oxygen administration education Medication education-adverse effect Nursing assessment with vital signs Home Health Aide Order: To Assist In: Bathing and personal care, flight physician and meal prep Retail Pharmacy Manager Order: To Evaluate: Living conditions/environment, Support services Order: To Provide: Long range planning, Community services I have seen patient Remigio Thakur on 05/11/17. My clinical findings support the need for the requested home health care services because: Ltd mobility - disease progression Patient has SOB Deconditioned w/ increased weakness Med compliance is questionable Limited ability to care for self Need for psychosocial assistance Impaired cognition/judgement High risk of falls I certify that my clinical findings support that this patient is homebound because: Impaired cognitive ability/safety Unsteady gait/balance Unsafe to leave home unassisted [id number] bed/chair Unable to use public transportation Poor cardiac reserve Andrew St MD May 11, 2017 17:29
[2017-05-12] VITALS: BP 136/76; PULSE 136; RESP 19; TEMP 98.3; O2SAT 95
[2017-05-12] MEDS: LORazepam 2 MG/ML VIAL IV PRN (00:03)
--- NOTE | 2017-05-12 02:14 | RADRPT ---
EXAM DATE/TIME: 05/12/2017 01:48 [facility] COMPARISON: CHEST SINGLE AP, May 09, 2017, 12:37. INDICATIONS : Congestion. MEDICAL HISTORY : Seizures. Scoliosis, Bradycardia, Cerebral palsy SURGICAL HISTORY : Splenectomy. Audience.fmTube ENCOUNTER: Subsequent ACUITY: 2 weeks PAIN SCORE: Non-responsive. LOCATION: Bilateral chest FINDINGS: A single view of the chest demonstrates minimal bibasilar atelectasis. Heart mildly enlarged. The car diomediastinal contours are unremarkable. Osseous structures are intact. Scoliosis. CONCLUSION: 1. Bibasilar atelectasis. 2. Cardiomegaly. Taiwo Valadez MD on May 12, 2017 at 2:12 Board Certified Radiologist. This report was verified electronically.
[2017-05-12] MEDS: INSULIN NovoLIN REGULAR SUPPLEMENTAL SCALE SQ SCH ×4 (03:00→14:53)
[2017-05-12 04:00] VITALS: BP 127/82; PULSE 115; RESP 16; TEMP 97.6; O2SAT 97
[2017-05-12] MEDS: METOPROLOL TARTRATE 25 MG TAB PO SCH ×2 (05:54→16:57)
[2017-05-12] MEDS: NYSTATIN 500,000 UNIT TAB PO SCH ×2 (05:54→14:54)
[2017-05-12] MEDS: BETHANECHOL CHL 25 MG TAB PEG SCH ×2 (05:54→14:54)
[2017-05-12 08:00] VITALS: BP 126/72; PULSE 80; RESP 16; TEMP 97.4; O2SAT 100
[2017-05-12] MEDS: TOPIRAMATE 100 MG TAB PO SCH (09:38)
[2017-05-12] MEDS: ASPIRIN EC 81 MG TABEC PO SCH (09:38)
[2017-05-12] MEDS: POLYETHYLENE GLYCOL 17 GM PKG DOBHOFF SCH (09:38)
[2017-05-12] MEDS: FLUDROCORTISONE ACETATE 0.1 MG TAB PO SCH (09:38)
[2017-05-12] MEDS: PANTOPRAZOLE SOD 40 MG DELAYED RELEASE TAB PO SCH (09:38)
[2017-05-12] MEDS: PHENYTOIN SUSP 100 MG/4 ML CUP PO SCH (09:38)
[2017-05-12] MEDS: HEPARIN SODIUM - SQ 10,000 UNITS/ML VIAL SQ SCH (09:39)
[2017-05-12] MEDS: SODIUM CHLORIDE 0.9% FLUSH 10 ML FLUSH IV FLUSH SCH (09:39)
[2017-05-12] MEDS: CHLORHEXIDINE 0.12% (ORAL KIT) 15 ML CUP MT SCH (09:39)
[2017-05-12 10:38] VITALS: PULSE 86
[2017-05-12] MEDS: DEXT 5%-NACL 0.45% 1000 ML INJ 1,000 ML IV SCH (11:40)
[2017-05-12 12:00] VITALS: BP 115/62; PULSE 78; RESP 16; TEMP 97.8; O2SAT 100
[2017-05-12 13:03] LABS: AUTOMATED NEUTROPHIL # 7.8 TH/MM3 (1.8-7.7); BASOPHIL % 0.4 % (0.0-2.0); EOSINOPHIL # 0.3 TH/MM3 (0-0.4); EOSINOPHIL % 2.3 % (0.0-4.0); HEMATOCRIT 25.9 % (39.0-51.0); HEMO FLAGS DIFF FINAL; LYMPH % 23.3 % (9.0-44.0); LYMPHOCYTE # 2.7 TH/MM3 (1.0-4.8); MEAN CELL VOLUME 78.6 FL (80.0-100.0); MEAN CORPUSCULAR HEMOGLOBIN 27.7 PG (27.0-34.0); MEAN CORPUSCULAR HGB CONC 35.3 % (32.0-36.0); MONO % 5.9 % (0.0-8.0); NEUT % 68.1 % (16.0-70.0); PLATELET COUNT 559 TH/MM3 (150-450); RED BLOOD COUNT 3.29 MIL/MM3 (4.50-5.90); WHITE BLOOD COUNT 11.4 TH/MM3 (4.0-11.0)
[2017-05-12 13:48] LABS: BICARBONATE 26.1 MEQ/L (21.0-32.0); POTASSIUM 3.3 MEQ/L (3.5-5.1)
[2017-05-12] MEDS ORDERED: IOHEXOL 350 MG/ML 50 ML BTL (for RAD DIAG) ONE (14:33)
--- NOTE | 2017-05-12 15:48 | HHI.PR ---
Subjective Remarks Patient discharged yesterday due to clot JG tube. This was evaluated by IR and unclogged. Discussed with RN. No new issues. Objective Vitals Vital Signs Date Time Temp Pulse Resp B/P Pulse Ox O2 Delivery O2 Flow Rate FiO2 05/12/17 12:00 97.8 78 16 115/62 100 05/12/17 10:38 86 05/12/17 09:57 Nasal Cannula 2.00 05/12/17 08:00 97.4 80 16 126/72 100 05/12/17 04:00 97.6 115 16 127/82 97 05/12/17 00:00 98.3 136 19 136/76 95 05/11/17 23:18 97 Nasal Cannula 2.00 05/11/17 20:00 Nasal Cannula 2.00 05/11/17 20:00 80 05/11/17 20:00 97.3 113 19 106/72 94 05/11/17 17:58 98 Nasal Cannula 1.00 05/11/17 16:06 97.9 95 18 126/72 100 I/O 05/11/17 05/11/17 05/11/17 05/12/17 05/12/17 05/12/17 06:59 14:59 22:59 06:59 14:59 22:59 Intake Total 0 ml 0 ml Output Total 1550 ml 1600 ml 200 ml 700 ml Balance -1550 ml -1600 ml -200 ml -700 ml Intake Oral 0 ml 0 ml Output Urine Total 1550 ml 1600 ml 200 ml 700 ml # Bowel Movements 1 5 0 1 Result Diagram: 05/12/17 1231 05/12/17 1231 Objective Remarks GENERAL: Underdeveloped male with cerebral palsy. CARDIOVASCULAR: Normal rate and regular rhythm without murmurs, gallops, or rubs. RESPIRATORY: Breath sounds equal and clear to auscultation bilaterally. GASTROINTESTINAL: Abdomen soft, nondistended. Normal active bowel sounds MUSCULOSKELETAL: Extremities without contractures. NEURO: Awake. At times moans. Does not follow commands. A/P Problem List: (1) Dyspnea ICD Code: R06.00 Status: Acute (2) Cardiomyopathy ICD Code: I42.9 Status: Acute (3) Pneumonia ICD Code: J18.9 Status: Acute (4) Seizure cerebral ICD Code: I67.89 Status: Acute (5) Development delay ICD Code: R62.50 Status: Acute (6) Pain ICD Code: R52 Status: Acute (7) Respiratory failure ICD Code: J96.90 Status: Acute Assessment and Plan The patient was being treated for acute respiratory failure secondary to aspiration pneumonia. He had an ileus, gastritis. In addition he had multiple electrolyte abnormalities. The patient was successfully treated and was supposed to be discharged yesterday when his GJ tube clotted blood. This was revised by IR and is now functioning. The patient is cleared for discharge. His Watson catheter will be removed. Victor Manuel López MD May 12, 2017 15:47
[2017-05-12 16:00] VITALS: BP 110/68; PULSE 92; RESP 16; TEMP 97.2; O2SAT 95
--- NOTE | 2017-05-12 16:32 | RADRPT ---
EXAM DATE/TIME: 05/12/2017 14:21 [facility] COMPARISON: No previous studies available for comparison. INDICATIONS : Patient with clogged GJ tube MEDICAL HISTORY : 1.GERD 2.Cerebral palsay 3. Gastroparesis 4. Sepsis 5. HTN 6. scoliosis SURGICAL HISTORY : 1. Trach 2. GJ tube 3. Cholelithiasis ENCOUNTER: Subsequent ACUITY: > 1 year PAIN SCORE: 0/10 FLUORO TIME: 05. minutes IMAGE SERIES: 2 CONTRAST: 20 cc Omnipaque (iohexol) 350 PROCEDURE : 1. Fluoroscopically guided tube injection. 2. Conscious sedation with continuous EKG and oximetry monitoring. The patient's transgastric jejunal feeding tube was evaluated. The tube was flushed with little diffi culty utilizing normal saline and then warm tap water. Under direct fluoroscopic visualization, the t ube was then injected with contrast revealing good positioning in the proximal jejunum with opacifica tion of normal caliber proximal small bowel loops. The gastric portion of the tube was also injected. The tube is in good position. There is no leakage of contrast. CONCLUSION: Uncomplicated transgastric jejunal feeding tube rehabilitation and evaluation as described. The tube is okay to use at this point. Mg Gomez MD on May 12, 2017 at 16:29 Board Certified Radiologist. This report was verified electronically.
== END 2017-05-12 18:57 | disposition home health service (06) | DRG 871 ==
LOC: NEPE 01:30 → NEDA 08:26 → OBSVTOIN 10:58 → HIMN 13:20 → N04B 05-01 11:49 → HIMN 05-01 13:07 → N07A 05-01 18:00 → N03B 05-02 08:09 → N04B 05-08 15:37
PROVIDERS: ADMIT Internal Medicine; ATTEND Family Medicine
PROC: 0DB38ZX Excision of Lower Esophagus, Via Natural or Artificial Opening Endoscopic, Diagnostic (ICD-10-PCS; principal; 2017-05-01 13:36)
PROC: 5A1945Z Respiratory Ventilation, 24-96 Consecutive Hours (ICD-10-PCS; 2017-05-02)
PROC: 0DJ08ZZ Inspection of Upper Intestinal Tract, Via Natural or Artificial Opening Endoscopic (ICD-10-PCS; 2017-05-02)
PROC: 0BH17EZ Insertion of Endotracheal Airway into Trachea, Via Natural or Artificial Opening (ICD-10-PCS; 2017-05-02)
PROC: 3E1H78Z Irrigation of Lower GI using Irrigating Substance, Via Natural or Artificial Opening (ICD-10-PCS; 2017-05-12)
DX: A41.9 Sepsis, unspecified organism (principal); J69.0 Pneumonitis due to inhalation of food and vomit; J96.00 Acute respiratory failure, unspecified whether with hypoxia or hypercapnia; E87.2 Acidosis; K92.0 Hematemesis; N17.9 Acute kidney failure, unspecified; B37.81 Candidal esophagitis; I42.9 Cardiomyopathy, unspecified; K56.7 Ileus, unspecified; K94.13 Enterostomy malfunction; G80.9 Cerebral palsy, unspecified; G40.909 Epilepsy, unspecified, not intractable, without status epilepticus; R65.20 Severe sepsis without septic shock; K44.9 Diaphragmatic hernia without obstruction or gangrene; E83.51 Hypocalcemia; E87.6 Hypokalemia; K29.70 Gastritis, unspecified, without bleeding; R00.0 Tachycardia, unspecified; K21.0 Gastro-esophageal reflux disease with esophagitis; K59.00 Constipation, unspecified; E87.70 Fluid overload, unspecified; H47.619 Cortical blindness, unspecified side of brain
CPT/HCPCS: 31500; 36600; 49452; 49465; 71010; 74000; 74020; 74177; 76937; 80048; 80053; 80185; 80202; 81001; 82805; 82948; 83605; 83690; 83735; 83880; 84100; 84132; 84155; 85007; 85014; 85018; 85025; 85027; 85049; 85610; 85730; 86403; 87040; 87077; 87086; 87186; 87205; 87641; 88305; 88312; 93306; 94002; 94003; 94640; 94664; 94667; C1769; C1874; C1887; C9113; G8987-GP; G8988-GP; J0456; J0610; J0780; J1630; J1644; J2060; J2250; J2405; J2543; J3370; J3411; J3475; J3480; J7030; J7042; J7050; Q2009; Q9963; Q9967

== ENCOUNTER 2017-09-13 14:58 | Inpatient (IN) | payer OTHER ==
[~2017-09-13] VITALS: Ht 152.4 cm; Wt 68.0 kg
[2017-09-13] VITALS (13 sets, daily range): BP systolic 92–140; BP diastolic 52–85; PULSE 95–140; RESP 16–20; TEMP 97.5–99.7; O2SAT 95–100
[~2017-09-13 14:58] MED LIST changes: +ALPR.5 PO; -ASPI-110; +ASPI1TAB57 PO; -FEED1MIS9; -JEVILIQ10 PEG; +PHEN100O PO; -PHEN100S PEG; -TOPI100 GT; +TOPI100 PO; +TRAZ50TA12 PO
[2017-09-13] MEDS ORDERED: SODIUM CHLORIDE 0.9% FLUSH 10 ML FLUSH IV FLUSH PRN ×2 (15:15→19:45)
[2017-09-13 15:42] LABS: AUTOMATED NEUTROPHIL # 7.8 TH/MM3 (1.8-7.7); BASOPHIL # 0.1 TH/MM3 (0-0.2); BASOPHIL % 0.7 % (0.0-2.0); EOSINOPHIL # 0.5 TH/MM3 (0-0.4); EOSINOPHIL % 2.7 % (0.0-4.0); HEMATOCRIT 20.8 % (39.0-51.0); LYMPH % 46.4 % (9.0-44.0); LYMPHOCYTE # 8.4 TH/MM3 (1.0-4.8); MEAN CELL VOLUME 82.6 FL (80.0-100.0); MEAN CORPUSCULAR HEMOGLOBIN 25.2 PG (27.0-34.0); MEAN CORPUSCULAR HGB CONC 30.5 % (32.0-36.0); MONO % 7.1 % (0.0-8.0); NEUT % 43.1 % (16.0-70.0); PLATELET COUNT 329 TH/MM3 (150-450); RED BLOOD COUNT 2.51 MIL/MM3 (4.50-5.90); RED CELL DISTRIBUTION WIDTH 16.5 % (11.6-17.2); WHITE BLOOD COUNT 18.1 TH/MM3 (4.0-11.0)
[2017-09-13 15:46] LABS: HEMO FLAGS AUTO DIFF
[2017-09-13 15:57] LABS: APTT (PATIENT) 19.9 SEC (24.3-30.1)
--- NOTE | 2017-09-13 16:01 | PD ---
HPI Chief Complaint: GI Complaint Time Seen by Provider: 15:05 Travel History International Travel<30 days: No Contact w/Intl Traveler<30days: No Traveled to known affect area: No History of Present Illness HPI 37-year-old male was brought in by family member for black tarry stool. Patient has history of CP. Patient is bedridden. 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 Patient had JG tube replaced at [facility] 5 days ago. Mom states that he had fresh blood coming out of JG tube for a short period of time after the JG tube replacement. Mom states that patient has black tarry stool since then. Mom reported no fever at home. Mom reported patient's lip has been pale. Mom reported patient does not have any past history of GI bleed. Patient has history of GERD, gastroparesis and multiple abdominal surgeries including Lebron fundoplication, lysis of adhesion and exploratory laparotomy secondary to bowel adhesions in the past. also has history of seizure disorder, developmental delay, hypertension, dysphasia, malnutrition. PFSH Past Medical History Autoimmune Disease: No Blood Disorders: No Cancer: No Cardiovascular Problems: Yes (Low heart rate -takes cardizem per Mother) Cerebral Palsy: Yes Chemotherapy: No Developmental Delay: Yes Diminished Hearing: No Endocrine: No Gastrointestinal Disorders: Yes (J TUBE ) GERD: Yes Genitourinary: No Hiatal Hernia: Yes Immune Disorder: No Musculoskeletal: Yes (C.P --- SCOLIOSIS) Neurologic: Yes (CEREBRAL PALSY, SEVERE DEVELOPMENTAL DELAY) Psychiatric: No Respiratory: Yes (PNA) Immunizations Current: Yes Radiation Therapy: No Seizures: Yes Shingles: Yes Past Surgical History Abdominal Surgery: Yes (2000 EXP LAP SBO, HECTOR FUNDOPLICATION, NEW PEG SITE MARCH 2007 ) Body Medical Devices: G-TUBE,RING AROUND ESOPHAGUS Cardiac Surgery: No Ear Surgery: No Endocrine Surgery: No Eye Surgery: No Genitourinary Surgery: No Gynecologic Surgery: No Neurologic Surgery: Yes (HISTORY OF SEIZURES) Oral Surgery: No Thoracic Surgery: No Other Surgery: Yes (G-TUBE, SPLEEN REMOVED ) Social History Alcohol Use: No Tobacco Use: No Substance Use: No Allergies-Medications (Allergen,Severity, Reaction): Coded Allergies: *MDRO Multi-Drug Resistant Organism (Verified Adverse Reaction, Unknown, ) MDR Pseudomonas (sputum) - 11/09/16 Reported Meds & Prescriptions Reported Meds & Active Scripts Active Reported Fludrocortisone (Fludrocortisone Acetate) 0.1 Mg Tab 0.2 Mg PO DAILY Aspirin 81 (Aspirin) 81 Mg Tabdr 81 Mg PO DAILY Phenytoin 100 Mg/4 Ml Oral.susp 100 Mg PO BID Topamax (Topiramate) 100 Mg Tab 100 Mg PO BID Xanax (Alprazolam) 0.5 Mg Tab 0.5 Mg PO Q8H PRN Trazodone (Trazodone HCl) 50 Mg Tab 25 Mg PO PRN PRN Review of Systems General / Constitutional: No: Fever Eyes: No: Visual changes HENT: No: Headaches Cardiovascular: No: Chest Pain or Discomfort Respiratory: No: Shortness of Breath Gastrointestinal: Positive: Hematochezia, No: Abdominal Pain Genitourinary: No: Dysuria Musculoskeletal: No: Pain Skin: No Rash Neurologic: No: Weakness Psychiatric: No: Depression Endocrine: No: Polydipsia Hematologic/Lymphatic: No: Easy Bruising Physical Exam Narrative GENERAL: Well-nourished, well-developed patient. SKIN: Focused skin assessment warm/dry. HEAD: Normocephalic. EYES: No scleral icterus. No injection or drainage. NECK: Supple, trachea midline. No JVD or lymphadenopathy. CARDIOVASCULAR: Regular rate and rhythm without murmurs, gallops, or rubs. RESPIRATORY: Breath sounds equal bilaterally. No accessory muscle use. GASTROINTESTINAL: Abdomen soft, non-tender, nondistended. Patient has black tarry stool. Hemoccult positive. MUSCULOSKELETAL: No cyanosis, or edema. BACK: Nontender without obvious deformity. No CVA tenderness. Data Data Last Documented VS Vital Signs Date Time Temp Pulse Resp B/P (MAP) Pulse Ox O2 Delivery O2 Flow Rate FiO2 09/13/17 17:36 98.6 118 18 129/61 09/13/17 17:25 100 09/13/17 15:33 Room Air Orders Orders Complete Blood Count With Diff (09/13/17 15:12) Comprehensive Metabolic Panel (09/13/17 15:12) Lipase (09/13/17 15:12) Prothrombin Time / Inr (Pt) (09/13/17 15:12) Act Partial Throm Time (Ptt) (09/13/17 15:12) Ct Abd/Pel W Iv Contrast(Rout) (09/13/17 15:12) Iv Access Insert/Monitor (09/13/17 15:12) Ecg Monitoring (09/13/17 15:12) Oximetry (09/13/17 15:12) Sodium Chloride 0.9% Flush (Ns Flush) (09/13/17 15:15) Type And Screen (09/13/17 16:05) Red Blood Cells (Rbc) (09/13/17 16:05) Blood Product Administration (09/13/17 16:05) Sodium Chlor 0.9% 250 Ml Inj (Ns 250 Ml (09/13/17 16:15) Consult Gastroenterology (09/13/17 ) Sodium Chlor 0.9% 1000 Ml Inj (Ns 1000 M (09/13/17 17:45) Famotidine Inj (Pepcid Inj) (09/13/17 17:45) Pantoprazole Inj (Protonix Inj) (09/13/17 18:00) Labs Laboratory Tests Test 09/13/17 15:20 White Blood Count 18.1 TH/MM3 Red Blood Count 2.51 MIL/MM3 Hemoglobin 6.3 GM/DL Hematocrit 20.8 % Mean Corpuscular Volume 82.6 FL Mean Corpuscular Hemoglobin 25.2 PG Mean Corpuscular Hemoglobin Concent 30.5 % Red Cell Distribution Width 16.5 % Platelet Count 329 TH/MM3 Mean Platelet Volume 8.8 FL Neutrophils (%) (Auto) 43.1 % Lymphocytes (%) (Auto) 46.4 % Monocytes (%) (Auto) 7.1 % Eosinophils (%) (Auto) 2.7 % Basophils (%) (Auto) 0.7 % Neutrophils # (Auto) 7.8 TH/MM3 Lymphocytes # (Auto) 8.4 TH/MM3 Monocytes # (Auto) 1.3 TH/MM3 Eosinophils # (Auto) 0.5 TH/MM3 Basophils # (Auto) 0.1 TH/MM3 CBC Comment AUTO DIFF Differential Total Cells Counted 100 Neutrophils % (Manual) 48 % Band Neutrophils % 3 % Lymphocytes % 45 % Monocytes % 3 % Eosinophils % 1 % Neutrophils # (Manual) 9.2 TH/MM3 Nucleated Red Blood Cells 3 /100 WBC Differential Comment FINAL DIFF MANUAL Platelet Estimate NORMAL Platelet Morphology Comment NORMAL Target Cells 2+ Ovalocytes 1+ Prothrombin Time 10.0 SEC Prothromb Time International Ratio 1.0 RATIO Activated Partial Thromboplast Time 19.9 SEC Blood Urea Nitrogen 44 MG/DL Creatinine 0.93 MG/DL Random Glucose 99 MG/DL Total Protein 8.0 GM/DL Albumin 3.0 GM/DL Calcium Level 8.6 MG/DL Alkaline Phosphatase 86 U/L Aspartate Amino Transf (AST/SGOT) 90 U/L Alanine Aminotransferase (ALT/SGPT) 116 U/L Total Bilirubin LESS THAN 0.1 MG/DL Sodium Level 151 MEQ/L Potassium Level 4.0 MEQ/L Chloride Level 117 MEQ/L Carbon Dioxide Level 25.9 MEQ/L Anion Gap 8 MEQ/L Estimat Glomerular Filtration Rate 112 ML/MIN Lipase 120 U/L [facility] Medical Decision Making Medical Screen Exam Complete: Yes Emergency Medical Condition: Yes Differential Diagnosis Differential diagnosis including upper GI bleed, lower GI bleed, bowel perforation. Narrative Course 37-year-old male with black tarry stool after JG Tube replacement 5 days ago. Patient has history of CP. Pepcid 20 mg IV. Normal saline solution 80 cc an hour. Protonix 40 mg IV now and daily. HemaPrompt Point of Care Internal Pos. & Neg. Controls: Passed Fecal Specimen Occult Blood: Positive Diagnosis Primary Impression: GI bleed Qualified Codes: K92.2 - Gastrointestinal hemorrhage, unspecified Additional Impression: Severe anemia Admitting Information Admitting Physician Requests: Admit Ej Perez MD Sep 13, 2017 16:01
[2017-09-13 16:02] LABS: ALT (GPT) 116 U/L (12-78); ANION GAP 8 MEQ/L (5-15); AST (GOT) 90 U/L (15-37); BICARBONATE 25.9 MEQ/L (21.0-32.0); BLOOD UREA NITROGEN 44 MG/DL (7-18); CHLORIDE 117 MEQ/L (98-107); GLOMERULAR FILTRATION RATE 112 ML/MIN (>89); SODIUM (NA) 151 MEQ/L (136-145)
[2017-09-13 16:04] LABS: ALKALINE PHOSPHATASE 86 U/L (45-117); TOTAL BILIRUBIN ADULT LESS THAN 0.1 MG/DL (0.2-1.0)
[2017-09-13] MEDS ORDERED: SODIUM CHLOR 0.9% 250 ML INJ 250 ML IV ONE (16:15)
[2017-09-13 16:29] LABS: BANDS 3 % (0-6); CORRECTED NUCLEATED RBC 3 /100 WBC (0-0); EOSINOPHILS 1 % (0-4); NEUTROPHIL # MANUAL DIFF 9.2 TH/MM3 (1.8-7.7); POLYS (SEG NEUTROPHILS) 48 % (16-70); WBC DIFF SAMPLE 100
[2017-09-13 16:30] LABS: OVALOCYTES 1+ (NORMAL); PLATELET ESTIMATE SMEAR NORMAL (NORMAL); PLATELET MORPHOLOGY NORMAL (NORMAL); SCAN/DIFF FINAL DIFF MANUAL; TARGET CELLS 2+ (NORMAL)
[2017-09-13] MEDS ORDERED: SODIUM CHLOR 0.9% 1000 ML INJ 1,000 ML IV SCH (17:45)
[2017-09-13] MEDS ORDERED: FAMOTIDINE 20 MG/2 ML VIAL IV PUSH ONE (17:45)
[2017-09-13] MEDS ORDERED: PANTOPRAZOLE SODIUM 40 MG VIAL IV PUSH ONE (18:00)
[2017-09-13] MEDS ORDERED: IOHEXOL 350 MG/ML 10 ML VIAL (for RAD DIAG) IVCONTRAST ONE (19:43)
[2017-09-13] MEDS ORDERED: BISACODYL 10 MG SUPP RECTAL PRN (19:45)
[2017-09-13] MEDS ORDERED: MAGNESIUM HYDROXIDE SUSP 30 ML CUP PO PRN (19:45)
[2017-09-13] MEDS ORDERED: LACTULOSE SYRUP 20 GM/30 ML CUP PO PRN (19:45)
[2017-09-13] MEDS ORDERED: SENNOSIDES 8.6 MG TAB PO PRN (19:45)
[2017-09-13] MEDS ORDERED: NALOXONE HCL 0.4 MG/ML AMP IV PUSH PRN (19:45)
[2017-09-13] MEDS ORDERED: cloNIDine HCL 0.1 MG TAB PO PRN (19:45)
[2017-09-13] MEDS ORDERED: ONDANSETRON HCL 4 MG/2 ML VIAL IVP PRN (19:45)
[2017-09-13] MEDS ORDERED: ENALAPRILAT 2.5 MG/2 ML VIAL IV PUSH PRN (19:45)
[2017-09-13] MEDS ORDERED: ACETAMINOPHEN 325 MG TAB PO PRN (19:45)
[2017-09-13] MEDS ORDERED: ALPRAZolam 0.5 MG TAB PO PRN (20:00)
[2017-09-13] MEDS: TOPIRAMATE 100 MG TAB PO SCH (21:00)
[2017-09-13] MEDS: PHENYTOIN SUSP 100 MG/4 ML CUP PO SCH ×2 (21:00→23:23)
--- NOTE | 2017-09-13 22:15 | RADRPT ---
EXAM DATE/TIME: 09/13/2017 21:55 [place] COMPARISON: No previous studies available for comparison. INDICATIONS : Black stool since Sunday after GJ tube placed. IV CONTRAST: 85 cc Omnipaque 350 (iohexol) IV ORAL CONTRAST: No oral contrast ingested. RADIATION DOSE: 5.23 CTDIvol (mGy) ; Patient motion MEDICAL HISTORY : Seizures. Cardiovascular disease Hernia, hiatal.cerebral palsy. SURGICAL HISTORY : G-J tube ENCOUNTER: Initial ACUITY: 4 - 6 days PAIN SCALE: 0/10 LOCATION: abdomen TECHNIQUE: Volumetric scanning of the abdomen and pelvis was performed. Using automated exposure control and ad justment of the mA and/or kV according to patient size, radiation dose was kept as low as reasonably achievable to obtain optimal diagnostic quality images. DICOM format image data is available electro nically for review and comparison. FINDINGS: Compare May 02, 2017. There is airspace disease in the left lower lobe but overall improved from diana 2. Right lung base is clear. Moderate to severe scoliosis. No acute findings in the liver. Previous splenectomy. A gastrojejunostomy tube is present. No bowel o bstruction. No free air or significant free fluid. Chronic bilateral hip dislocations. CONCLUSION: 1. A gastrojejunostomy tube is present. No bowel obstruction, free air or free fluid. 2. Mild air space disease left lower lobe, overall improved from May 02. 3. Chronic dislocation of the hips. There is moderate to severe scoliosis. Michael Feldman MD on September 13, 2017 at 22:08 Board Certified Radiologist. This report was verified electronically.
[2017-09-13] MEDS: PANTOPRAZOLE SODIUM 40 MG VIAL IV PUSH SCH (23:22)
[2017-09-13] MEDS: SODIUM CHLORIDE 0.9% FLUSH 10 ML FLUSH IV FLUSH SCH (23:22)
[2017-09-13] MEDS: DEXT 5%-NACL 0.45% 1000 ML INJ 1,000 ML IV SCH (23:23)
[2017-09-13] MEDS: DOCUSATE SODIUM 50 MG/SENNA 8.6 MG TAB PO SCH (23:23)
[2017-09-14] VITALS (7 sets, daily range): BP systolic 98–126; BP diastolic 52–68; PULSE 68–94; RESP 16–18; TEMP 97–97.9; O2SAT 98–100
[2017-09-14] MEDS: PHENYTOIN INJ 100 MG/2 ML VIAL IV SCH ×3 (00:44→21:20)
--- NOTE | 2017-09-14 08:54 | PD.CONS ---
HPI History of Present Illness This is a 37 year old male with CP and hx roel fundoplication, bowel adhesions who presented with anemia and melanotic stool. He had GJ tube replaced by IR at [facility] 5 days ago and reportedly there was some bleeding after and melanotic stool in the last 5 days. He has hx UGIB. He had EGD 05/02/17 with finding hiatal hernia, dilated esophagus, distal esophagitis, suggestive poor motility, daryl; EGD 05/03/17 after emesis that appeared to have blood in it and finding of severe esophagitis, unable to advance scope past duodenum, no bleed seen. Review of records show he has had a steady decline in HH since 03/2017, today hgb 6.3. Hx obtained from EMRs. PFSH Past Medical History cerebral palsy daryl esophagitis hiatal hernia bowel adhesions Past Surgical History roel fundoplication GJ placement ex lap EDIS Coded Allergies: *MDRO Multi-Drug Resistant Organism (Verified Adverse Reaction, Unknown, ) MDR Pseudomonas (sputum) - 11/09/16 Family History unobtainable Social History unobtainable Review of Systems ROS noncontributory GI Exam Vitals I&O Vital Signs Date Time Temp Pulse Resp B/P (MAP) Pulse Ox O2 Delivery O2 Flow Rate FiO2 09/14/17 07:42 97.7 94 18 116/58 (77) 100 09/14/17 04:00 97.9 68 18 98/55 (69) 98 09/13/17 23:50 97.5 101 17 95/55 (68) 100 09/13/17 22:09 98 21 09/13/17 20:55 98.1 112 16 118/85 (96) 98 09/13/17 19:52 99.0 103 20 140/62 100 09/13/17 19:36 98.4 95 20 93/69 100 09/13/17 18:38 98.6 104 16 106/67 100 09/13/17 18:20 98.6 110 16 104/67 100 09/13/17 17:55 98.3 114 18 121/81 100 09/13/17 17:55 98.3 114 18 121/81 100 09/13/17 17:36 98.6 118 18 129/61 09/13/17 17:25 98.2 120 16 123/77 100 09/13/17 15:33 99.7 110 18 92/52 (65) 99 Room Air 09/13/17 15:07 99.7 140 16 92/52 (65) 95 09/13/17 15:02 128 99 Room Air I/O 09/13/17 09/13/17 09/13/17 09/14/17 09/14/17 09/14/17 06:59 14:59 22:59 06:59 14:59 22:59 Intake Total 2900 ml Output Total 420 ml Balance 2900 ml -420 ml Intake IV Total 1250 ml Packed Cells 1200 ml Blood Product IV Normal Saline Flush 450 ml Output Urine Total 400 ml Stool Total 20 ml Imaging Last Impressions Abdomen/Pelvis CT 09/13/17 1512 Signed Impressions: Service Date/Time: August 21:55 - CONCLUSION: 1. A gastrojejunostomy tube is present. No bowel obstruction, free air or free fluid. 2. Mild air space disease left lower lobe, overall improved from May 02. 3. Chronic dislocation of the hips. There is moderate to severe scoliosis. Michael Feldman MD Laboratory Test 09/13/17 15:20 White Blood Count 18.1 TH/MM3 Red Blood Count 2.51 MIL/MM3 Hemoglobin 6.3 GM/DL Hematocrit 20.8 % Mean Corpuscular Volume 82.6 FL Mean Corpuscular Hemoglobin 25.2 PG Mean Corpuscular Hemoglobin Concent 30.5 % Red Cell Distribution Width 16.5 % Platelet Count 329 TH/MM3 Mean Platelet Volume 8.8 FL Neutrophils (%) (Auto) 43.1 % Lymphocytes (%) (Auto) 46.4 % Monocytes (%) (Auto) 7.1 % Eosinophils (%) (Auto) 2.7 % Basophils (%) (Auto) 0.7 % Neutrophils # (Auto) 7.8 TH/MM3 Lymphocytes # (Auto) 8.4 TH/MM3 Monocytes # (Auto) 1.3 TH/MM3 Eosinophils # (Auto) 0.5 TH/MM3 Basophils # (Auto) 0.1 TH/MM3 CBC Comment AUTO DIFF Differential Total Cells Counted 100 Neutrophils % (Manual) 48 % Band Neutrophils % 3 % Lymphocytes % 45 % Monocytes % 3 % Eosinophils % 1 % Neutrophils # (Manual) 9.2 TH/MM3 Nucleated Red Blood Cells 3 /100 WBC Differential Comment FINAL DIFF MANUAL Platelet Estimate NORMAL Platelet Morphology Comment NORMAL Target Cells 2+ Ovalocytes 1+ Prothrombin Time 10.0 SEC Prothromb Time International Ratio 1.0 RATIO Activated Partial Thromboplast Time 19.9 SEC Blood Urea Nitrogen 44 MG/DL Creatinine 0.93 MG/DL Random Glucose 99 MG/DL Total Protein 8.0 GM/DL Albumin 3.0 GM/DL Calcium Level 8.6 MG/DL Alkaline Phosphatase 86 U/L Aspartate Amino Transf (AST/SGOT) 90 U/L Alanine Aminotransferase (ALT/SGPT) 116 U/L Total Bilirubin LESS THAN 0.1 MG/DL Sodium Level 151 MEQ/L Potassium Level 4.0 MEQ/L Chloride Level 117 MEQ/L Carbon Dioxide Level 25.9 MEQ/L Anion Gap 8 MEQ/L Estimat Glomerular Filtration Rate 112 ML/MIN Lipase 120 U/L Physical Examination HEENT: normocephalic; atraumatic; no jaundice. CHEST: coarse CARDIAC: Rrr ABDOMEN: Soft, nondistended, nontender; no hepatosplenomegaly; bowel sounds are present in all four quadrants. PEG site dressing dry and intact, no bleeding seen around tube EXTREMITIES: contracted SKIN: Normal; no rash; no jaundice. [employer] HELPER: uncooperative Assessment and Plan Plan ASSESSMENT - anemia, reported melanotic stool - microcytic, hypochromic, steady decline HH since 03/2017. report melena last 5 days since GJ replacement by IR at [facility], report of bleeding after placement. No obvious bleed currently. Had 2 EGDs 05/2017 found daryl esophagitis, suggestive poor motility, dilated esophagus, hiatal hernia. Called Edita Nevarez [phone] no answer, called Duc Nevarez [phone] who did not want to discuss with me and asked that I call Vanessa and said he would call her and tell her to answer the phone, 2nd attempt made to call Edita and no answer. PLAN - EGD today - obtain consent - NPO - monitor HH - transfuse as needed - further recs to follow This pt seen by myself and Dr Tapia and this note is written on his behalf Carley Khan Sep 14, 2017 08:54
[2017-09-14] MEDS: SODIUM CHLORIDE 0.9% FLUSH 10 ML FLUSH IV FLUSH SCH ×2 (09:00→21:19)
[2017-09-14] MEDS: FLUDROCORTISONE ACETATE 0.1 MG TAB PO SCH (09:00)
[2017-09-14] MEDS: TOPIRAMATE 100 MG TAB PO SCH ×3 (09:00→21:19)
[2017-09-14] MEDS: DOCUSATE SODIUM 50 MG/SENNA 8.6 MG TAB PO SCH ×3 (09:00→21:19)
--- NOTE | 2017-09-14 10:43 | HHI.HP ---
History of Present Illness Primary Care Physician Andrew St MD Admission Diagnosis GI bleed. Anemia. Diagnoses: (1) PEG (percutaneous endoscopic gastrostomy) status (2) Severe anemia (3) GI bleed (4) Feeding by G-tube (5) Pain (6) Cerebral palsy (7) Lethargy (8) Development delay (9) Dislodged gastrostomy tube (10) Bradycardia History of Present Illness 37 Y AAM, SEEN IN MY OFFICE THIS WEEK FOR COUGHING AND CONCERN FOR ASPIRATION. MOTHER FELT SOMETHING WAS AWRY WITH HIS GJ TUBE, AND FELT IT WAS NOT FUNCTIOINING. HAD THE GJ REPLACED SAME DAY AT [facility]. HAD GIB AND PT MOM BROUGHT INTO [facility]. SEEN BY GI AND PENDING EGD NOW. CHANGED MEDS TO IV. Review of Systems ROS Limitations: Clinical Condition, Altered Mental Status, Uncooperative, Poor Historian Past Family Social History Allergies: Coded Allergies: *MDRO Multi-Drug Resistant Organism (Verified Adverse Reaction, Unknown, ) MDR Pseudomonas (sputum) - 11/09/16 Past Medical History VDRF, RESOLVED LEUKOCYTOSIS GT CLOGGED HYPOKALEMIA TACHY/ ARRHYTHMIA ASPIRATION, RECURRENT GIB ILEUS LACTIC ACIDOSIS GP BACTEREMIA SIM Malfunctioning J tube. IR consulted repositioned J-tube Cerebral palsy. SZ Past Surgical History gt trach Reported Medications Current Medications Medications (Trade) Dose Ordered Sig/Carlotta Route Start Time Stop Time Status Last Admin (NS Flush) 2 ml UNSCH PRN IV FLUSH 09/13/17 15:15 (NS Flush) 2 ml UNSCH PRN IV FLUSH 09/13/17 19:45 (NS Flush) 2 ml BID IV FLUSH 09/13/17 21:00 09/13/17 23:22 (Tylenol) 650 mg Q4H PRN PO 09/13/17 19:45 (Zofran Inj) 4 mg Q6H PRN IVP 09/13/17 19:45 (Narcan Inj) 0.4 mg UNSCH PRN IV PUSH 09/13/17 19:45 (Violetta-Colace) 1 tab BID PO 09/13/17 21:00 09/13/17 23:23 (Milk Of Magnesia Liq) 30 ml Q12H PRN PO 09/13/17 19:45 (Senokot) 17.2 mg Q12H PRN PO 09/13/17 19:45 (Dulcolax Supp) 10 mg DAILY PRN RECTAL 09/13/17 19:45 (Lactulose Liq) 30 ml DAILY PRN PO 09/13/17 19:45 (Catapres) 0.1 mg Q6H PRN PO 09/13/17 19:45 Dextrose/Sodium Chloride 1,000 ml @ 42 mls/hr [id number] IV 09/13/17 19:45 09/13/17 23:23 (Vasotec Inj) 2.5 mg Q6H PRN IV PUSH 09/13/17 19:45 (Protonix Inj) 40 mg BID IV PUSH 09/13/17 21:00 09/13/17 23:22 (Xanax) 0.5 mg Q8H PRN PO 09/13/17 20:00 (Florinef) 0.2 mg DAILY PO 09/14/17 09:00 (Topamax) 100 mg BID PO 09/13/17 21:00 (Dilantin Inj) 100 mg BID IV 09/13/17 23:57 09/14/17 00:44 Family History NC Social History DISABLE, NO E/T/D Physical Exam Vital Signs Vital Signs Date Time Temp Pulse Resp B/P (MAP) Pulse Ox O2 Delivery O2 Flow Rate FiO2 09/14/17 07:42 97.7 94 18 116/58 (77) 100 09/14/17 04:00 97.9 68 18 98/55 (69) 98 09/13/17 23:50 97.5 101 17 95/55 (68) 100 09/13/17 22:09 98 21 09/13/17 20:55 98.1 112 16 118/85 (96) 98 09/13/17 19:52 99.0 103 20 140/62 100 09/13/17 19:36 98.4 95 20 93/69 100 09/13/17 18:38 98.6 104 16 106/67 100 09/13/17 18:20 98.6 110 16 104/67 100 09/13/17 17:55 98.3 114 18 121/81 100 09/13/17 17:55 98.3 114 18 121/81 100 09/13/17 17:36 98.6 118 18 129/61 09/13/17 17:25 98.2 120 16 123/77 100 09/13/17 15:33 99.7 110 18 92/52 (65) 99 Room Air 09/13/17 15:07 99.7 140 16 92/52 (65) 95 09/13/17 15:02 128 99 Room Air Physical Exam GENERAL: no apparent distress. SKIN: No rashes, ecchymoses or lesions. Cool and dry. HEAD: Atraumatic. Normocephalic. No temporal or scalp tenderness. EYES: Pupils equal round and reactive. Extraocular motions intact. No scleral icterus. No injection or drainage. ENT: Nose without bleeding, purulent drainage or septal hematoma. Throat without erythema, tonsillar hypertrophy or exudate. Uvula midline. Airway patent. NECK: Trachea midline. No JVD or lymphadenopathy. Supple, nontender, no meningeal signs. CARDIOVASCULAR: Regular rate and rhythm without murmurs, gallops, or rubs. RESPIRATORY: Clear to auscultation. Breath sounds equal bilaterally. No wheezes , rales, or rhonchi. GASTROINTESTINAL: Abdomen soft, non-tender, nondistended. No hepato-splenomegaly , or palpable masses. No guarding. MUSCULOSKELETAL: Extremities without clubbing, cyanosis, or edema. No joint tenderness, effusion, or edema noted. No calf tenderness. Negative Homans sign bilaterally. NEUROLOGICAL: Awake and alert. contracted in all extr's Laboratory Laboratory Tests Test 09/13/17 15:20 White Blood Count 18.1 Red Blood Count 2.51 Hemoglobin 6.3 Hematocrit 20.8 Mean Corpuscular Volume 82.6 Mean Corpuscular Hemoglobin 25.2 Mean Corpuscular Hemoglobin Concent 30.5 Red Cell Distribution Width 16.5 Platelet Count 329 Mean Platelet Volume 8.8 Neutrophils (%) (Auto) 43.1 Lymphocytes (%) (Auto) 46.4 Monocytes (%) (Auto) 7.1 Eosinophils (%) (Auto) 2.7 Basophils (%) (Auto) 0.7 Neutrophils # (Auto) 7.8 Lymphocytes # (Auto) 8.4 Monocytes # (Auto) 1.3 Eosinophils # (Auto) 0.5 Basophils # (Auto) 0.1 CBC Comment AUTO DIFF Differential Total Cells Counted 100 Neutrophils % (Manual) 48 Band Neutrophils % 3 Lymphocytes % 45 Monocytes % 3 Eosinophils % 1 Neutrophils # (Manual) 9.2 Nucleated Red Blood Cells 3 Differential Comment FINAL DIFF MANUAL Platelet Estimate NORMAL Platelet Morphology Comment NORMAL Target Cells 2+ Ovalocytes 1+ Prothrombin Time 10.0 Prothromb Time International Ratio 1.0 Activated Partial Thromboplast Time 19.9 Blood Urea Nitrogen 44 Creatinine 0.93 Random Glucose 99 Total Protein 8.0 Albumin 3.0 Calcium Level 8.6 Alkaline Phosphatase 86 Aspartate Amino Transf (AST/SGOT) 90 Alanine Aminotransferase (ALT/SGPT) 116 Total Bilirubin LESS THAN 0.1 Sodium Level 151 Potassium Level 4.0 Chloride Level 117 Carbon Dioxide Level 25.9 Anion Gap 8 Estimat Glomerular Filtration Rate 112 Lipase 120 Result Diagram: 09/13/17 1520 09/13/17 1520 Imaging Last 72 hours Impressions Abdomen/Pelvis CT 09/13/17 1512 Signed Impressions: Service Date/Time: , September 13, 2017 21:55 - CONCLUSION: 1. A gastrojejunostomy tube is present. No bowel obstruction, free air or free fluid. 2. Mild air space disease left lower lobe, overall improved from May 02. 3. Chronic dislocation of the hips. There is moderate to severe scoliosis. Michael Feldman MD Caprini VTE Risk Assessment Caprini VTE Risk Assessment: Mod/High Risk (score >= 2) VTE Pharm Contraindication: Hemorrhage Caprini Risk Assessment Model Point Value = 1 Point Value = 2 Point Value = 3 Point Value = 5 Age 41-60 Minor surgery BMI > 25 kg/m2 Swollen legs Varicose veins or History of unexplained or recurrent spontaneous Oral contraceptives or hormone replacement Sepsis (< 1 month) Serious lung disease, including pneumonia (< 1 month) Abnormal pulmonary function Acute myocardial infarction Congestive heart failure (< 1 month) History of inflammatory bowel disease Medical patient at bed rest Age 61-74 Arthroscopic surgery Major open surgery (> 45 min) Laparoscopic surgery (> 45 min) Malignancy Confined to bed (> 72 hours) Immobilizing plaster cast Central venous access Age >= 75 History of VTE Family history of VTE Factor V Leiden Prothrombin [id number] Lupus anticoagulant Anticardiolipin antibodies Elevated serum homocysteine Heparin-induced thrombocytopenia Other congenital or acquired thrombophilia Stroke (< 1 month) Elective arthroplasty Hip, pelvis, or leg fracture Acute spinal cord injury (< 1 month) Prophylaxis Regimen Total Risk Factor Score Risk Level Prophylaxis Regimen 0-1 Low Early ambulation 2 Moderate Order ONE of the following: *Sequential Compression Device (SCD) *Heparin 5000 units SQ BID 3-4 Higher Order ONE of the following medications: *Heparin 5000 units SQ TID *Enoxaparin/Lovenox 40 mg SQ daily (WT < 150 kg, CrCl > 30 mL/min) *Enoxaparin/Lovenox 30 mg SQ daily (WT < 150 kg, CrCl > 10-29 mL/min) *Enoxaparin/Lovenox 30 mg SQ BID (WT < 150 kg, CrCl > 30 mL/min) AND/OR *Sequential Compression Device (SCD) 5 or more Highest Order ONE of the following medications: *Heparin 5000 units SQ TID (Preferred with Epidurals) *Enoxaparin/Lovenox 40 mg SQ daily (WT < 150 kg, CrCl > 30 mL/min) *Enoxaparin/Lovenox 30 mg SQ daily (WT < 150 kg, CrCl > 10-29 mL/min) *Enoxaparin/Lovenox 30 mg SQ BID (WT < 150 kg, CrCl > 30 mL/min) AND *Sequential Compression Device (SCD) Assessment and Plan Assessment and Plan A/P: GIB: LIKELY DUE TO GJ REPLACEMENT ACUTE BLOOD LOSS ANEMIA Malfunctioning GJ tube: GI CONSULTED AND TO SCOPE PT TODAY. NPO, IVF, TF ON HOLD. ASPIRATION, RECURRENT HISTORY OF: NEBS ONLY FOR NOW, NO ABX Cerebral palsy. SZ CANDIDAL ESOPHAGITIS HISTORY ILEUS, HISTORY SIM, HISTORY OF INPATIENT ADMIT FOR THE ABOVE DIAGNOSIS AND PLAN. EXPECT THREE DAYS OF INPT STAY. PT WOULD W/O INPT WORKUP ABOVE. Problem Qualifiers (1) GI bleed: Qualified Codes: K92.2 - Gastrointestinal hemorrhage, unspecified Andrew St MD Sep 14, 2017 10:43
[2017-09-14] MEDS: PANTOPRAZOLE SODIUM 40 MG VIAL IV PUSH SCH ×2 (10:49→21:20)
[2017-09-14] MEDS ORDERED: METOPROLOL TARTRATE 25 MG TAB PO PRN (12:30)
[2017-09-14] MEDS ORDERED: POVIDONE IODINE 5% (ANTISEPSIS KIT) 4 APPLICATIONS EACH NARE PRN (12:30)
[2017-09-14] MEDS ORDERED: CHLORHEXIDINE GLUCONATE 2 % 1 PACK (2 CLOTHS) TOPICAL PRN (12:30)
[2017-09-14] MEDS ORDERED: SODIUM CHLORID 0.9% 500 ML IV PRN (12:30)
[2017-09-14] MEDS ORDERED: LACTATED RINGER'S 1000 ML IV PRN (12:30)
[2017-09-14 17:09] LABS: AUTOMATED NEUTROPHIL # 6.4 TH/MM3 (1.8-7.7); BASOPHIL # 0.1 TH/MM3 (0-0.2); BASOPHIL % 0.7 % (0.0-2.0); EOSINOPHIL # 0.6 TH/MM3 (0-0.4); EOSINOPHIL % 4.1 % (0.0-4.0); HEMATOCRIT 27.1 % (39.0-51.0); LYMPH % 41.3 % (9.0-44.0); LYMPHOCYTE # 5.8 TH/MM3 (1.0-4.8); MEAN CELL VOLUME 81.9 FL (80.0-100.0); MONO % 8.4 % (0.0-8.0); NEUT % 45.5 % (16.0-70.0); PLATELET COUNT 245 TH/MM3 (150-450); RED CELL DISTRIBUTION WIDTH 15.7 % (11.6-17.2)
[2017-09-14 17:16] LABS: HEMO FLAGS AUTO DIFF
[2017-09-14 17:56] LABS: BANDS 4 % (0-6); CORRECTED NUCLEATED RBC 12 /100 WBC (0-0); EOSINOPHILS 3 % (0-4); MYELOCYTES 1 % (0-0); NEUTROPHIL # MANUAL DIFF 7.8 TH/MM3 (1.8-7.7); POLYS (SEG NEUTROPHILS) 51 % (16-70); WBC DIFF SAMPLE 100
[2017-09-14 17:57] LABS: PLATELET ESTIMATE SMEAR NORMAL (NORMAL); PLATELET MORPHOLOGY NORMAL (NORMAL); SCAN/DIFF FINAL DIFF MANUAL
[2017-09-14 18:05] LABS: BICARBONATE 23.1 MEQ/L (21.0-32.0); POTASSIUM 3.6 MEQ/L (3.5-5.1)
[2017-09-15] MEDS: DEXT 5%-NACL 0.45% 1000 ML INJ 1,000 ML IV SCH ×2 (02:44→18:49)
[2017-09-15 04:00] VITALS: BP 105/55; PULSE 85; RESP 17; TEMP 97; O2SAT 99
[2017-09-15 08:00] VITALS: BP 102/55; PULSE 46; RESP 18; TEMP 97.6; O2SAT 100
[2017-09-15] MEDS: TOPIRAMATE 100 MG TAB PO SCH ×2 (08:56→22:17)
[2017-09-15] MEDS: DOCUSATE SODIUM 50 MG/SENNA 8.6 MG TAB PO SCH ×2 (08:56→21:00)
[2017-09-15] MEDS: PHENYTOIN INJ 100 MG/2 ML VIAL IV SCH ×2 (08:56→22:17)
[2017-09-15] MEDS: FLUDROCORTISONE ACETATE 0.1 MG TAB PO SCH (08:56)
[2017-09-15] MEDS: SODIUM CHLORIDE 0.9% FLUSH 10 ML FLUSH IV FLUSH SCH ×2 (08:56→21:00)
[2017-09-15] MEDS: PANTOPRAZOLE SODIUM 40 MG VIAL IV PUSH SCH ×2 (08:56→22:12)
[2017-09-15 12:00] VITALS: BP 94/55; PULSE 58; RESP 18; TEMP 97.5; O2SAT 100
--- NOTE | 2017-09-15 14:34 | HHI.GIFU ---
Subjective Remarks Pt resting in bed, severely contracted, nonverbal. In no apparent distress. Objective Vitals I&O Vital Signs Date Time Temp Pulse Resp B/P (MAP) Pulse Ox O2 Delivery O2 Flow Rate FiO2 09/15/17 12:00 97.5 58 18 94/55 (68) 100 09/15/17 08:00 97.6 46 18 102/55 (71) 100 09/15/17 04:00 97.0 85 17 105/55 (72) 99 09/14/17 23:48 97.0 92 16 103/52 (69) 100 09/14/17 20:02 97.2 89 17 118/68 (85) 99 09/14/17 19:21 98 21 09/14/17 18:42 100 09/14/17 15:50 97.8 88 18 126/68 (87) 100 09/14/17 14:41 97.9 93 20 116/73 (87) 100 I/O 09/14/17 09/14/17 09/14/17 09/15/17 09/15/17 09/15/17 07:00 15:00 23:00 07:00 15:00 23:00 Intake Total 400 ml 760 ml Output Total 420 ml Balance -420 ml 400 ml 760 ml Intake IV Total 700 ml Tube Feeding 0 ml Tube Irrigant 60 ml Other 400 ml Output Urine Total 400 ml Stool Total 20 ml # Voids 2 # Bowel Movements 1 Laboratory Laboratory Tests Test 09/14/17 16:29 White Blood Count 14.0 Red Blood Count 3.30 Hemoglobin 8.9 Hematocrit 27.1 Mean Corpuscular Volume 81.9 Mean Corpuscular Hemoglobin 27.0 Mean Corpuscular Hemoglobin Concent 33.0 Red Cell Distribution Width 15.7 Platelet Count 245 Mean Platelet Volume 8.6 Neutrophils (%) (Auto) 45.5 Lymphocytes (%) (Auto) 41.3 Monocytes (%) (Auto) 8.4 Eosinophils (%) (Auto) 4.1 Basophils (%) (Auto) 0.7 Neutrophils # (Auto) 6.4 Lymphocytes # (Auto) 5.8 Monocytes # (Auto) 1.2 Eosinophils # (Auto) 0.6 Basophils # (Auto) 0.1 CBC Comment AUTO DIFF Differential Total Cells Counted 100 Neutrophils % (Manual) 51 Band Neutrophils % 4 Lymphocytes % 37 Monocytes % 4 Eosinophils % 3 Neutrophils # (Manual) 7.8 Myelocytes 1 Nucleated Red Blood Cells 12 Differential Comment FINAL DIFF MANUAL Platelet Estimate NORMAL Platelet Morphology Comment NORMAL Blood Urea Nitrogen 16 Creatinine 0.68 Random Glucose 88 Calcium Level 8.2 Sodium Level 148 Potassium Level 3.6 Chloride Level 118 Carbon Dioxide Level 23.1 Anion Gap 7 Estimat Glomerular Filtration Rate 161 Imaging Last Impressions Abdomen/Pelvis CT 09/13/17 1512 Signed Impressions: Service Date/Time: August 21:55 - CONCLUSION: 1. A gastrojejunostomy tube is present. No bowel obstruction, free air or free fluid. 2. Mild air space disease left lower lobe, overall improved from May 02. 3. Chronic dislocation of the hips. There is moderate to severe scoliosis. Michael Feldman MD Physical Exam HEENT: Normocephalic; atraumatic CHEST: Even/unlabored CARDIAC: RRR ABDOMEN: Soft, nondistended, no hepatosplenomegaly; bowel sounds active x 4. GJ tube with no drainage. EXTREMITIES: Contracted SKIN: Normal; no rash; no jaundice. 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 report melena last 5 days since GJ replacement by IR at [facility], report of bleeding after placement. No obvious bleed currently. CT abdomen/pelvis W IV contrast (09/13) --> A GJ tube is present. No bowel obstruction, free air or free fluid. Mild air space disease left lower lobe, overall improved from May 02. Chronic dislocation of the hips. There is moderate to severe scoliosis. S/P EGD (09/14) --> Gastric body ulcer, unable to advance scope into the duodenum. Pt can restart TF. No orders in for TF at this time, will get nutritional consult. PPI. Biopsy pending. H/H pending from today. S/P 2 U PRBC on Sep 13. PLAN - Nutrition consult for TF - PPI BID - Monitor HH - Biopsy pending - Transfuse as needed - Supportive care This pt has been seen and examined by myself and Dr. Tapia and this note is written on his behalf Chioma Pastor Sep 15, 2017 14:34
[2017-09-15 16:00] VITALS: BP 109/56; PULSE 60; RESP 18; TEMP 97.7; O2SAT 100
[2017-09-15 17:06] VITALS: O2SAT 99
--- NOTE | 2017-09-15 19:29 | HHI.PR ---
Subjective Remarks Pt is unable to provide a history due to developmental delay, non-verbal. He presented yesterday with GI bleed anemia, transfused 2 unites PRBC which brought his hemoglobin from 6.3 to 8.9. He is awake and appears non-distressed. Objective Vital Signs Date Time Temp Pulse Resp B/P (MAP) Pulse Ox O2 Delivery O2 Flow Rate FiO2 09/15/17 17:06 99 21 09/15/17 16:00 97.7 60 18 109/56 (73) 100 09/15/17 12:00 97.5 58 18 94/55 (68) 100 09/15/17 08:00 97.6 46 18 102/55 (71) 100 09/15/17 04:00 97.0 85 17 105/55 (72) 99 09/14/17 23:48 97.0 92 16 103/52 (69) 100 09/14/17 20:02 97.2 89 17 118/68 (85) 99 I/O 09/14/17 09/14/17 09/14/17 09/15/17 09/15/17 09/15/17 07:00 15:00 23:00 07:00 15:00 23:00 Intake Total 400 ml 760 ml Output Total 420 ml Balance -420 ml 400 ml 760 ml Intake IV Total 700 ml Tube Feeding 0 ml Tube Irrigant 60 ml Other 400 ml Output Urine Total 400 ml Stool Total 20 ml # Voids 2 2 # Bowel Movements 1 0 Result Diagram: 09/14/17 1629 09/14/17 1629 Objective Remarks GENERAL: Well-nourished, global developmental delay SKIN: Warm and dry. HEAD: Normocephalic. EYES: No scleral icterus. No injection or drainage. NECK: Supple, trachea midline. No JVD or lymphadenopathy. CARDIOVASCULAR: Regular rate and rhythm without murmurs, gallops, or rubs. RESPIRATORY: Breath sounds equal bilaterally. No accessory muscle use. GASTROINTESTINAL: Abdomen soft, non-tender, nondistended. MUSCULOSKELETAL: chronic deformities of extremities due to likely cerebral palsy , etc. BACK: chronic deformities EXTREMITIES: no pain, no edema Assessment and Plan Problem List: (1) GI bleed ICD Codes: K92.2 - Gastrointestinal hemorrhage, unspecified Status: Acute (2) Severe anemia ICD Codes: D64.9 - Anemia, unspecified Status: Acute (3) Development delay ICD Codes: R62.50 - Developmental delay Status: Acute Assessment and Plan Acute GI Bleed w/ Anemia - Likely due to GJ replacement - GI consulted and plan for endoscopy - 2 units of PRBC's given, Hgb 8.9, will follow - NPO for procedure h/o Cerebral Palsy and Developmental Delay - non-verbal h/o Seizures - seizure precautions h/o Ileus - monitor daily DVT Prophylaxis - SCD's elected given GI bleed Problem Qualifiers (1) GI bleed: Qualified Codes: K92.2 - Gastrointestinal hemorrhage, unspecified Wu Faulkner MD Sep 15, 2017 19:29
[2017-09-15 19:34] LABS: AUTOMATED NEUTROPHIL # 5.1 TH/MM3 (1.8-7.7); BASOPHIL % 0.4 % (0.0-2.0); EOSINOPHIL # 0.3 TH/MM3 (0-0.4); EOSINOPHIL % 3.3 % (0.0-4.0); HEMATOCRIT 30.2 % (39.0-51.0); HEMO FLAGS AUTO DIFF; LYMPH % 35.8 % (9.0-44.0); LYMPHOCYTE # 3.6 TH/MM3 (1.0-4.8); MEAN CORPUSCULAR HEMOGLOBIN 27.2 PG (27.0-34.0); MEAN CORPUSCULAR HGB CONC 33.1 % (32.0-36.0); MONO % 9.1 % (0.0-8.0); NEUT % 51.4 % (16.0-70.0); PLATELET COUNT 242 TH/MM3 (150-450); RED BLOOD COUNT 3.68 MIL/MM3 (4.50-5.90); RED CELL DISTRIBUTION WIDTH 15.5 % (11.6-17.2)
[2017-09-15 19:51] LABS: BICARBONATE 21.5 MEQ/L (21.0-32.0); POTASSIUM 3.6 MEQ/L (3.5-5.1)
[2017-09-15 20:15] VITALS: BP 101/56; PULSE 67; RESP 20; TEMP 97.3; O2SAT 95
[2017-09-15 20:41] LABS: CORRECTED NUCLEATED RBC 5 /100 WBC (0-0); EOSINOPHILS 3 % (0-4); POLYS (SEG NEUTROPHILS) 50 % (16-70); SCAN/DIFF FINAL DIFF MANUAL; WBC DIFF SAMPLE 100
[2017-09-15 20:43] LABS: PLATELET ESTIMATE SMEAR NORMAL (NORMAL); PLATELET MORPHOLOGY NORMAL (NORMAL)
[2017-09-16 00:15] VITALS: BP 130/80; PULSE 69; RESP 20; TEMP 98.8; O2SAT 96
[2017-09-16] MEDS: DEXT 5%-NACL 0.45% 1000 ML INJ 1,000 ML IV SCH (02:35)
[2017-09-16 04:45] VITALS: BP 101/62; PULSE 62; RESP 22; TEMP 97.4; O2SAT 97
[2017-09-16 07:35] LABS: AUTOMATED NEUTROPHIL # 4.2 TH/MM3 (1.8-7.7); BASOPHIL % 0.4 % (0.0-2.0); EOSINOPHIL # 0.5 TH/MM3 (0-0.4); EOSINOPHIL % 5.3 % (0.0-4.0); HEMATOCRIT 32.4 % (39.0-51.0); LYMPH % 36.6 % (9.0-44.0); LYMPHOCYTE # 3.3 TH/MM3 (1.0-4.8); MEAN CELL VOLUME 82.9 FL (80.0-100.0); MEAN CORPUSCULAR HEMOGLOBIN 27.2 PG (27.0-34.0); MEAN CORPUSCULAR HGB CONC 32.8 % (32.0-36.0); MONO % 10.8 % (0.0-8.0); NEUT % 46.9 % (16.0-70.0); PLATELET COUNT 303 TH/MM3 (150-450); RED BLOOD COUNT 3.91 MIL/MM3 (4.50-5.90); RED CELL DISTRIBUTION WIDTH 15.3 % (11.6-17.2); WHITE BLOOD COUNT 9.1 TH/MM3 (4.0-11.0)
[2017-09-16 07:43] LABS: HEMO FLAGS AUTO DIFF
[2017-09-16] MEDS: SODIUM CHLORIDE 0.9% FLUSH 10 ML FLUSH IV FLUSH SCH ×2 (07:47→22:20)
[2017-09-16] MEDS: FLUDROCORTISONE ACETATE 0.1 MG TAB PO SCH (07:47)
[2017-09-16] MEDS: PHENYTOIN INJ 100 MG/2 ML VIAL IV SCH (07:47)
[2017-09-16] MEDS: PANTOPRAZOLE SODIUM 40 MG VIAL IV PUSH SCH ×2 (07:47→22:19)
[2017-09-16] MEDS: TOPIRAMATE 100 MG TAB PO SCH ×2 (07:47→22:19)
[2017-09-16] MEDS: DOCUSATE SODIUM 50 MG/SENNA 8.6 MG TAB PO SCH ×2 (07:48→22:19)
[2017-09-16 07:51] LABS: BICARBONATE 22.3 MEQ/L (21.0-32.0); POTASSIUM 3.1 MEQ/L (3.5-5.1)
[2017-09-16 08:00] VITALS: BP 99/65; PULSE 54; RESP 17; O2SAT 100
[2017-09-16 08:37] LABS: POLYCHROMASIA 3.6 % (0.0-1.9)
[2017-09-16 08:39] LABS: CORRECTED NUCLEATED RBC 4 /100 WBC (0-0); EOSINOPHILS 1 % (0-4); NEUTROPHIL # MANUAL DIFF 4.7 TH/MM3 (1.8-7.7); POLYS (SEG NEUTROPHILS) 52 % (16-70); WBC DIFF SAMPLE 100
[2017-09-16 08:40] LABS: PLATELET ESTIMATE SMEAR NORMAL (NORMAL); PLATELET MORPHOLOGY NORMAL (NORMAL)
[2017-09-16 08:41] LABS: SCAN/DIFF FINAL DIFF MANUAL
[2017-09-16 12:00] VITALS: BP 90/66; PULSE 77; RESP 18; TEMP 97; O2SAT 100
--- NOTE | 2017-09-16 13:12 | HHI.GIFU ---
Subjective Remarks Resting in bed, in no apparent distress. Non verbal. Objective Vitals I&O Vital Signs Date Time Temp Pulse Resp B/P (MAP) Pulse Ox O2 Delivery O2 Flow Rate FiO2 09/16/17 12:00 97.0 77 18 90/66 (74) 100 09/16/17 08:00 54 17 99/65 (76) 100 09/16/17 04:45 97.4 62 22 101/62 (75) 97 09/16/17 00:15 98.8 69 20 130/80 (97) 96 09/15/17 20:15 97.3 67 20 101/56 (71) 95 09/15/17 17:06 99 21 09/15/17 16:00 97.7 60 18 109/56 (73) 100 I/O 09/15/17 09/15/17 09/15/17 09/16/17 09/16/17 09/16/17 07:00 15:00 23:00 07:00 15:00 23:00 Intake Total 0 ml 630 ml Balance 0 ml 630 ml Intake Oral 0 ml 0 ml IV Total 630 ml # Voids 2 0 2 # Bowel Movements 0 0 0 Laboratory Laboratory Tests Test 09/15/17 18:36 09/16/17 07:03 White Blood Count 10.0 9.1 Red Blood Count 3.68 3.91 Hemoglobin 10.0 10.6 Hematocrit 30.2 32.4 Mean Corpuscular Volume 82.0 82.9 Mean Corpuscular Hemoglobin 27.2 27.2 Mean Corpuscular Hemoglobin Concent 33.1 32.8 Red Cell Distribution Width 15.5 15.3 Platelet Count 242 303 Mean Platelet Volume 9.0 8.3 Neutrophils (%) (Auto) 51.4 46.9 Lymphocytes (%) (Auto) 35.8 36.6 Monocytes (%) (Auto) 9.1 10.8 Eosinophils (%) (Auto) 3.3 5.3 Basophils (%) (Auto) 0.4 0.4 Neutrophils # (Auto) 5.1 4.2 Lymphocytes # (Auto) 3.6 3.3 Monocytes # (Auto) 0.9 1.0 Eosinophils # (Auto) 0.3 0.5 Basophils # (Auto) 0.0 0.0 CBC Comment AUTO DIFF AUTO DIFF Differential Total Cells Counted 100 100 Neutrophils % (Manual) 50 52 Lymphocytes % 40 44 Monocytes % 7 3 Eosinophils % 3 1 Neutrophils # (Manual) 5.0 4.7 Nucleated Red Blood Cells 5 4 Differential Comment FINAL DIFF MANUAL FINAL DIFF MANUAL Platelet Estimate NORMAL NORMAL Platelet Morphology Comment NORMAL NORMAL Basophilic Stippling FAINT Spherocytes Hematology Comments Blood Urea Nitrogen 6 4 Creatinine 0.59 0.59 Random Glucose 76 79 Calcium Level 8.2 8.1 Sodium Level 144 144 Potassium Level 3.6 3.1 Chloride Level 114 116 Carbon Dioxide Level 21.5 22.3 Anion Gap 9 6 Estimat Glomerular Filtration Rate 189 189 Polychromasia 3.6 Imaging Last Impressions Abdomen/Pelvis CT 09/13/17 1512 Signed Impressions: Service Date/Time: August 21:55 - CONCLUSION: 1. A gastrojejunostomy tube is present. No bowel obstruction, free air or free fluid. 2. Mild air space disease left lower lobe, overall improved from May 02. 3. Chronic dislocation of the hips. There is moderate to severe scoliosis. Michael Feldman MD Physical Exam HEENT: Normocephalic; atraumatic CHEST: Even/unlabored CARDIAC: RRR ABDOMEN: Soft, nondistended, no hepatosplenomegaly; bowel sounds active x 4. GJ tube with no drainage. TF at 20 mL/hr EXTREMITIES: Contracted SKIN: Normal; no rash; no jaundice. 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 report melena last 5 days since GJ replacement by IR at [facility], report of bleeding after placement. No obvious bleed currently. CT abdomen/pelvis W IV contrast (09/13) --> A GJ tube is present. No bowel obstruction, free air or free fluid. Mild air space disease left lower lobe, overall improved from May 02. Chronic dislocation of the hips. There is moderate to severe scoliosis. S/P EGD (09/14) --> Gastric body ulcer, unable to advance scope into the duodenum. PPI. S/P 2 U PRBC on Sep 13. 09/16/17--Tolerating TF at 20 mL/hr. HH 10.6/32.4. EGD biopsy pending. PLAN - Nutrition consult for TF - PPI BID - Await EGD biopsy report - Monitor HH - Transfuse as needed - Supportive care - Further recommendations to follow based on results of above Patient seen and examined by Dr. Tapia and myself and this note is written on his behalf. Fabiola Rodriguez Sep 16, 2017 13:12
--- NOTE | 2017-09-16 14:55 | HHI.PR ---
Subjective Remarks Pt is non-verbal. Underwent EGD, awaiting biopsy results. No evidence of active GI bleed. Restarted on tube feeding with Jevity 1.5 per Casualty Underwriter recommendation. Objective Vital Signs Date Time Temp Pulse Resp B/P (MAP) Pulse Ox O2 Delivery O2 Flow Rate FiO2 09/16/17 12:00 97.0 77 18 90/66 (74) 100 09/16/17 08:00 54 17 99/65 (76) 100 09/16/17 04:45 97.4 62 22 101/62 (75) 97 09/16/17 00:15 98.8 69 20 130/80 (97) 96 09/15/17 20:15 97.3 67 20 101/56 (71) 95 09/15/17 17:06 99 21 09/15/17 16:00 97.7 60 18 109/56 (73) 100 I/O 09/15/17 09/15/17 09/15/17 09/16/17 09/16/17 09/16/17 07:00 15:00 23:00 07:00 15:00 23:00 Intake Total 0 ml 630 ml Balance 0 ml 630 ml Intake Oral 0 ml 0 ml IV Total 630 ml # Voids 2 0 2 # Bowel Movements 0 0 0 Result Diagram: 09/16/17 0709/16/17 0703 Objective Remarks GENERAL: global developmental delay, able to be awakened SKIN: Warm and dry. HEAD: Normocephalic. EYES: No scleral icterus. No injection or drainage. NECK: Supple, trachea midline. No JVD or lymphadenopathy. CARDIOVASCULAR: Regular rate and rhythm without murmurs, gallops, or rubs. RESPIRATORY: Breath sounds equal bilaterally. No accessory muscle use. GASTROINTESTINAL: Abdomen soft, non-tender, nondistended. MUSCULOSKELETAL: chronic deformities of extremities due to likely cerebral palsy , etc. BACK: chronic deformities EXTREMITIES: no pain, no edema Assessment and Plan Problem List: (1) GI bleed ICD Codes: K92.2 - Gastrointestinal hemorrhage, unspecified Status: Acute (2) Severe anemia ICD Codes: D64.9 - Anemia, unspecified Status: Acute (3) Development delay ICD Codes: R62.50 - Developmental delay Status: Acute Assessment and Plan Acute GI Bleed w/ Anemia - Likely due to GJ replacement - GI consulted and plan for endoscopy - 2 units of PRBC's given, Hgb appears stable - Restarted on Jevity 1.5 via feeding tube h/o Cerebral Palsy and Developmental Delay - non-verbal h/o Seizures - seizure precautions h/o Ileus - monitor daily DVT Prophylaxis - SCD's elected given GI bleed Discharge Planning - If Hgb remains stable and GI clears based on biopsy results, pt can go home. - Discharge may occur Sunday Problem Qualifiers (1) GI bleed: Qualified Codes: K92.2 - Gastrointestinal hemorrhage, unspecified Wu Faulkner MD Sep 16, 2017 14:55
[2017-09-16 16:00] VITALS: BP 92/64; PULSE 76; RESP 18; TEMP 98.4; O2SAT 100
[2017-09-16 21:00] VITALS: BP 102/68; PULSE 62; RESP 23; TEMP 98.3; O2SAT 22
[2017-09-17 00:50] VITALS: BP 105/70; PULSE 68; RESP 20; TEMP 97.6; O2SAT 98
[2017-09-17 05:47] VITALS: BP 110/78; PULSE 66; RESP 23; TEMP 98.1; O2SAT 98
[2017-09-17] MEDS: DEXT 5%-NACL 0.45% 1000 ML INJ 1,000 ML IV SCH (06:48)
[2017-09-17 07:58] LABS: AUTOMATED NEUTROPHIL # 5.1 TH/MM3 (1.8-7.7); BASOPHIL % 0.3 % (0.0-2.0); BICARBONATE 21.8 MEQ/L (21.0-32.0); EOSINOPHIL # 0.3 TH/MM3 (0-0.4); EOSINOPHIL % 3.4 % (0.0-4.0); HEMATOCRIT 34.9 % (39.0-51.0); HEMO FLAGS AUTO DIFF; LYMPH % 33.6 % (9.0-44.0); LYMPHOCYTE # 3.2 TH/MM3 (1.0-4.8); MEAN CELL VOLUME 84.3 FL (80.0-100.0); MEAN CORPUSCULAR HEMOGLOBIN 27.2 PG (27.0-34.0); MEAN CORPUSCULAR HGB CONC 32.2 % (32.0-36.0); MONO % 9.4 % (0.0-8.0); NEUT % 53.3 % (16.0-70.0); PLATELET COUNT 374 TH/MM3 (150-450); POTASSIUM 3.7 MEQ/L (3.5-5.1); RED BLOOD COUNT 4.14 MIL/MM3 (4.50-5.90); WHITE BLOOD COUNT 9.5 TH/MM3 (4.0-11.0)
[2017-09-17 08:19] VITALS: BP 96/55; PULSE 75; RESP 20; TEMP 97; O2SAT 99
[2017-09-17] MEDS: DOCUSATE SODIUM 50 MG/SENNA 8.6 MG TAB PO SCH (08:52)
[2017-09-17] MEDS: FLUDROCORTISONE ACETATE 0.1 MG TAB PO SCH (08:53)
[2017-09-17] MEDS: PANTOPRAZOLE SODIUM 40 MG VIAL IV PUSH SCH (08:53)
[2017-09-17] MEDS: SODIUM CHLORIDE 0.9% FLUSH 10 ML FLUSH IV FLUSH SCH (08:53)
[2017-09-17] MEDS: TOPIRAMATE 100 MG TAB PO SCH (08:53)
[2017-09-17 08:56] LABS: BASOPHILS 1 % (0-2); CORRECTED NUCLEATED RBC 2 /100 WBC (0-0); EOSINOPHILS 5 % (0-4); NEUTROPHIL # MANUAL DIFF 4.5 TH/MM3 (1.8-7.7); POLYS (SEG NEUTROPHILS) 47 % (16-70); WBC DIFF SAMPLE 100
[2017-09-17 08:57] LABS: PLATELET ESTIMATE SMEAR NORMAL (NORMAL); PLATELET MORPHOLOGY NORMAL (NORMAL); SCAN/DIFF FINAL DIFF MANUAL
[2017-09-17] MEDS ORDERED: PHENYTOIN SUSP 100 MG/4 ML CUP PO SCH (09:00)
--- NOTE | 2017-09-17 10:20 | HHI.DCPOC ---
Discharge Care Plan Diagnosis: (1) Development delay (2) Dislodged gastrostomy tube (3) Feeding by G-tube (4) Pain (5) Cerebral palsy (6) Bradycardia (7) Lethargy (8) Severe anemia (9) GI bleed Goals to Promote Your Health * To prevent worsening of your condition and complications * To maintain your health at the optimal level Directions to Meet Your Goals Take your medications as prescribed Follow your dietary instruction Follow activity as directed Keep your appointments as scheduled Take your immunizations and boosters as scheduled If your symptoms worsen call your PCP, if no PCP go to Urgent Care Center or Emergency Room Smoking is Dangerous to Your Health. Avoid second hand smoke Call the 24-hour hour crisis hotline for domestic abuse at [address] MD Sep 17, 2017 10:20
--- NOTE | 2017-09-17 10:21 | HHI.FF ---
Face to Face Verification Diagnosis: (1) Development delay (2) Dislodged gastrostomy tube (3) Feeding by G-tube (4) Cerebral palsy (5) Pain (6) GI bleed (7) Severe anemia Occupational Therapy Order: Evaluate and Treat, Gross motor coordination, Fine motor coordination Home Health Nursing Order: Medical education Signs/symptoms of disease process Medication education-adverse effect Nursing assessment with vital signs Home Health Aide Order: To Assist In: Bathing and personal care, aeronautical project engineer and meal prep Stove Fitter Order: To Evaluate: Living conditions/environment, Support services Order: To Provide: Long range planning, Community services I have seen patient Remigio Thakur on 09/17/17. My clinical findings support the need for the requested home health care services because: Ltd mobility - disease progression Deconditioned w/ increased weakness Med compliance is questionable Limited ability to care for self Impaired cognition/judgement High risk of falls I certify that my clinical findings support that this patient is homebound because: Unsteady gait/balance Unsafe to leave home unassisted Need for psychosocial assistance Sfr-grpbetatty-fundoaul bed/chair Unable to use public transportation Poor cardiac reserve [address] MD Sep 17, 2017 10:21
--- NOTE | 2017-09-17 10:23 | HHI.DS ---
Discharge Summary Admission Date Sep 14, 2017 at 16:36 Discharge Date: Sep 17, 2017 Admitting Diagnosis GI bleed. Anemia. (1) Development delay ICD Codes: R62.50 - Developmental delay Status: Acute (2) Dislodged gastrostomy tube ICD Codes: Z43.1 - Encounter for attention to gastrostomy Status: Acute (3) Feeding by G-tube ICD Codes: Z93.1 - Gastrostomy status Status: Chronic (4) Pain ICD Codes: R52 - Pain, unspecified Status: Acute (5) Cerebral palsy ICD Codes: G80.9 - Cerebral palsy Status: Acute (6) Lethargy ICD Codes: R53.83 - Other fatigue Status: Acute (7) Severe anemia ICD Codes: D64.9 - Anemia, unspecified Status: Acute Brief History 37 Y AAM, SEEN IN MY OFFICE THIS WEEK FOR COUGHING AND CONCERN FOR ASPIRATION. MOTHER FELT SOMETHING WAS AWRY WITH HIS GJ TUBE, AND FELT IT WAS NOT FUNCTIOINING. HAD THE GJ REPLACED SAME DAY AT [facility] ER. HAD GIB AND PT MOM BROUGHT INTO [place] ER. SEEN BY GI AND PENDING EGD NOW. CHANGED MEDS TO IV. CBC/BMP: 09/17/17 0716 09/17/17 0716 Significant Findings Laboratory Tests Test 09/14/17 16:29 09/15/17 18:36 09/16/17 07:03 09/17/17 07:16 White Blood Count 14.0 TH/MM3 (4.0-11.0) Red Blood Count 3.30 MIL/MM3 (4.50-5.90) 3.68 MIL/MM3 (4.50-5.90) 3.91 MIL/MM3 (4.50-5.90) 4.14 MIL/MM3 (4.50-5.90) Hemoglobin 8.9 GM/DL (13.0-17.0) 10.0 GM/DL (13.0-17.0) 10.6 GM/DL (13.0-17.0) 11.3 GM/DL (13.0-17.0) Hematocrit 27.1 % (39.0-51.0) 30.2 % (39.0-51.0) 32.4 % (39.0-51.0) 34.9 % (39.0-51.0) Monocytes (%) (Auto) 8.4 % (0.0-8.0) 9.1 % (0.0-8.0) 10.8 % (0.0-8.0) 9.4 % (0.0-8.0) Eosinophils (%) (Auto) 4.1 % (0.0-4.0) 5.3 % (0.0-4.0) Lymphocytes # (Auto) 5.8 TH/MM3 (1.0-4.8) Monocytes # (Auto) 1.2 TH/MM3 (0-0.9) 1.0 TH/MM3 (0-0.9) Eosinophils # (Auto) 0.6 TH/MM3 (0-0.4) 0.5 TH/MM3 (0-0.4) Neutrophils # (Manual) 7.8 TH/MM3 (1.8-7.7) Myelocytes 1 % (0-0) Nucleated Red Blood Cells 12 /100 WBC (0-0) 5 /100 WBC (0-0) 4 /100 WBC (0-0) 2 /100 WBC (0-0) Calcium Level 8.2 MG/DL (8.5-10.1) 8.2 MG/DL (8.5-10.1) 8.1 MG/DL (8.5-10.1) 8.1 MG/DL (8.5-10.1) Sodium Level 148 MEQ/L (136-145) Chloride Level 118 MEQ/L (98-107) 114 MEQ/L (98-107) 116 MEQ/L (98-107) 113 MEQ/L (98-107) Basophilic Stippling FAINT (NORMAL) Blood Urea Nitrogen 6 MG/DL (7-18) 4 MG/DL (7-18) Creatinine 0.59 MG/DL (0.60-1.30) 0.59 MG/DL (0.60-1.30) Polychromasia 3.6 % (0.0-1.9) Potassium Level 3.1 MEQ/L (3.5-5.1) Eosinophils % 5 % (0-4) Random Glucose 68 MG/DL (74-106) PE at Discharge GENERAL: SKIN: Warm and dry. HEAD: Atraumatic. Normocephalic. EYES: Pupils equal and round. No scleral icterus. No injection or drainage. ENT: No nasal bleeding or discharge. Mucous membranes pink and moist. NECK: Trachea midline. No JVD. CARDIOVASCULAR: Regular rate and rhythm. RESPIRATORY: No accessory muscle use. Clear to auscultation. Breath sounds equal bilaterally. GASTROINTESTINAL: Abdomen soft, non-tender, nondistended. Hepatic and splenic margins not palpable. MUSCULOSKELETAL: Extremities without clubbing, cyanosis, or edema. No obvious deformities. NEUROLOGICAL: Awake and alert. No obvious cranial nerve deficits. Motor grossly within normal limits. 1 out of 5 muscle strength in the arms and legs. Hospital Course 37 year old AAM, with Acute GI Bleed w/ Anemia - Likely due to GJ replacement - GI consulted and plan for endoscopy - 2 units of PRBC's given, Hgb appears stable - Restarted on Jevity 1.5 via feeding tube h/o Cerebral Palsy and Developmental Delay - non-verbal h/o Seizures - seizure precautions h/o Ileus - monitor daily DVT Prophylaxis - SCD's elected given GI bleed Discharge hold ASA, WILL SEE OUTPT Pt Condition on Discharge: Stable Discharge Disposition: Disch w/ Home Health Serv Discharge Instructions DIET: Follow Instructions for: On Tube Feeding Activities you can perform: Regular-No Restrictions Continued Medications: Alprazolam (Xanax) 0.5 Mg Tab 0.5 MG PO Q8H PRN for ANXIETY, TAB 0 Refills Fludrocortisone (Fludrocortisone) 0.1 Mg Tab 0.2 MG PO DAILY, #30 TAB 0 Refills Phenytoin (Phenytoin) 100 Mg/4 Ml Oral.susp 100 MG PO BID Topiramate (Topamax) 100 Mg Tab 100 MG PO BID for Control Seizures, #60 TAB 0 Refills Trazodone (Trazodone) 50 Mg Tab 25 MG PO PRN PRN for Control Depression, #90 TAB 0 Refills Discontinued Medications: Aspirin (Aspirin 81) 81 Mg Tabdr 81 MG PO DAILY, TAB [address] MD Sep 17, 2017 10:23
[2017-09-17] MEDS ORDERED: ALPRAZolam 0.5 MG TAB PEG PRN (11:00)
[2017-09-17] MEDS ORDERED: LACTULOSE SYRUP 20 GM/30 ML CUP PEG PRN (11:00)
[2017-09-17] MEDS ORDERED: ACETAMINOPHEN 325 MG TAB PEG PRN (11:00)
[2017-09-17] MEDS ORDERED: cloNIDine HCL 0.1 MG TAB PEG PRN (11:00)
[2017-09-17] MEDS ORDERED: MAGNESIUM HYDROXIDE SUSP 30 ML CUP PEG PRN (11:00)
[2017-09-17] MEDS ORDERED: SENNOSIDES 8.6 MG TAB PEG PRN (11:00)
[2017-09-17 12:38] VITALS: BP 110/69; PULSE 95; RESP 20; TEMP 97.7; O2SAT 98
--- NOTE | 2017-09-17 15:36 | HHI.FF ---
Face to Face Verification Diagnosis: (1) CP (cerebral palsy) (2) Dislodged gastrostomy tube (3) Pain (4) Feeding by G-tube (5) Cerebral palsy (6) GI bleed (7) Severe anemia Occupational Therapy Order: Evaluate and Treat, Improve ADL, Gross motor coordination, Fine motor coordination Home Health Nursing Order: Medical education Signs/symptoms of disease process Medication education-adverse effect Nursing assessment with vital signs Telehealth Video Production Intern Order: To Evaluate: Living conditions/environment, Support services Order: To Provide: Long range planning, Community services I have seen patient Remigio Thakur on 09/17/17. My clinical findings support the need for the requested home health care services because: Ltd mobility - disease progression Deconditioned w/ increased weakness Med compliance is questionable Limited ability to care for self Need for psychosocial assistance Impaired cognition/judgement High risk of falls I certify that my clinical findings support that this patient is homebound because: Impaired cognitive ability/safety Unsteady gait/balance Unsafe to leave home unassisted Need for psychosocial assistance Zvt-pabzfhdjgh-chdzytuu bed/chair Unable to use public transportation Poor cardiac reserve Andrew [address] MD Sep 17, 2017 15:36
[2017-09-17 16:44] VITALS: BP 117/74; PULSE 110; RESP 20; TEMP 97; O2SAT 98
[2017-09-17] MEDS ORDERED: TOPIRAMATE 100 MG TAB PEG SCH (21:00)
[2017-09-17] MEDS ORDERED: PHENYTOIN SUSP 100 MG/4 ML CUP PEG SCH (21:00)
[2017-09-17] MEDS ORDERED: DOCUSATE SODIUM 50 MG/SENNA 8.6 MG TAB PEG SCH (21:00)
[2017-09-18] MEDS ORDERED: FLUDROCORTISONE ACETATE 0.1 MG TAB PEG SCH (09:00)
== END 2017-09-17 17:26 | disposition home health service (06) | DRG 378 ==
LOC: NEPC 14:58 → UNDOADMIN 18:58 → NEDA 18:58 → INTOOBSV 19:42 → NEDA 19:42 → NEPGCP 20:50 → OBSVTOIN 09-14 16:36 → N05B 09-15 06:42
PROVIDERS: ADMIT Family Medicine; ATTEND Family Medicine
PROC: 30263N1 (ICD-10-PCS; principal; 2017-09-13)
PROC: 0DD68ZX Extraction of Stomach, Via Natural or Artificial Opening Endoscopic, Diagnostic (ICD-10-PCS; 2017-09-14)
DX: K29.51 Unspecified chronic gastritis with bleeding (principal); D62 Acute posthemorrhagic anemia; K22.2 Esophageal obstruction; K31.84 Gastroparesis; M41.9 Scoliosis, unspecified; I10 Essential (primary) hypertension; K25.4 Chronic or unspecified gastric ulcer with hemorrhage; G80.9 Cerebral palsy, unspecified; K44.9 Diaphragmatic hernia without obstruction or gangrene; K21.9 Gastro-esophageal reflux disease without esophagitis; G40.909 Epilepsy, unspecified, not intractable, without status epilepticus; R47.02 Dysphasia; R00.1 Bradycardia, unspecified; M24.451 Recurrent dislocation, right hip; M24.452 Recurrent dislocation, left hip; F41.9 Anxiety disorder, unspecified; Z74.01 Bed confinement status; Z93.1 Gastrostomy status
CPT/HCPCS: 36430; 74177; 80048; 80053; 83690; 85007; 85027; 85610; 85730; 86850; 86900; 86901; 86920; 88305; 88312; 96361; 96374; 96375; C9113; G8987-GO; G8988-GO; J1165; J7030; J7050; J7120; P9016; Q9967

== ENCOUNTER 2017-09-18 08:56 | Observation (INO) | payer OTHER ==
[2017-09-18] VITALS (7 sets, daily range): BP systolic 111–127; BP diastolic 56–78; PULSE 98–144; RESP 18–22; TEMP 97–98.8; O2SAT 97–99
[~2017-09-18 08:56] MED LIST changes: -ASPI1TAB57 PO
--- NOTE | 2017-09-18 09:43 | PD ---
HPI Chief Complaint: GI Complaint Time Seen by Provider: 09:19 Travel History International Travel<30 days: No Contact w/Intl Traveler<30days: No Traveled to known affect area: No History of Present Illness HPI 37yo M with PMH of cerebral palsy presents to the ED today because mother found blood on him at 7am today. Pt was just admitted 09/14/17-09/17/17 for GI bleed and anemia and transfused 2 units of PRBC. Pt had endoscopy by Dr. Tapia that showed gastric body ulcer. Pt is tachycardic in the 130s. BP normal. Saturating at 99% on RA. Rest of history is limited. Pt is at baseline mental status. PFSH Past Medical History Arthritis: No Asthma: No Autoimmune Disease: No Blood Disorders: No Anxiety: No Depression: No Heart Rhythm Problems: No Cancer: No Cardiovascular Problems: No Cerebral Palsy: Yes High Cholesterol: No Chemotherapy: No Chest Pain: No Congestive Heart Failure: No COPD: No Cerebrovascular Accident: No Developmental Delay: Yes Diabetes: No Diminished Hearing: No Endocrine: No Gastrointestinal Disorders: Yes (J TUBE ) GERD: No Genitourinary: No Headaches: No Hiatal Hernia: No Heparin Induced Thrombocytopen: No Hypertension: No Immune Disorder: No Implanted Vascular Access Dvce: No Kidney Stones: No Musculoskeletal: Yes (cerbral palsy and contractures) Neurologic: Yes (cerebral palsy and contractures) Psychiatric: No Reproductive: No Respiratory: Yes (aspiration precautions) Immunizations Current: Yes Migraines: No Radiation Therapy: No Renal Failure: No Seizures: Yes (history of) Shingles: Yes Sickle Cell Disease: No Sleep Apnea: No Thyroid Disease: No Ulcer: No ?: Not Past Surgical History Abdominal Surgery: Yes (multiple surgeries related to stomach) AICD: No Arteriovenous Shunt: No Body Medical Devices: G-TUBE,RING AROUND ESOPHAGUS Cardiac Surgery: No Ear Surgery: No Endocrine Surgery: No Eye Surgery: No Genitourinary Surgery: No Gynecologic Surgery: No Insulin Pump: No Joint Replacement: No Neurologic Surgery: Yes (HISTORY OF SEIZURES) Oral Surgery: No Pacemaker: No Thoracic Surgery: No Other Surgery: Yes (G-TUBE, SPLEEN REMOVED ) Social History Alcohol Use: No Tobacco Use: No Substance Use: No Allergies-Medications (Allergen,Severity, Reaction): Coded Allergies: *MDRO Multi-Drug Resistant Organism (Verified Adverse Reaction, Unknown, 09/18/17) MDR Pseudomonas (sputum) - 11/09/16 Reported Meds & Prescriptions Reported Meds & Active Scripts Active Reported Fludrocortisone (Fludrocortisone Acetate) 0.1 Mg Tab 0.2 Mg PO DAILY Phenytoin 100 Mg/4 Ml Oral.susp 100 Mg PO BID Topamax (Topiramate) 100 Mg Tab 100 Mg PO BID Xanax (Alprazolam) 0.5 Mg Tab 0.5 Mg PO Q8H PRN Trazodone (Trazodone HCl) 50 Mg Tab 25 Mg PO PRN PRN Review of Systems Except as stated in HPI: all other systems reviewed are Neg Physical Exam Narrative GENERAL: 37yo M in mild distress. SKIN: Focused skin assessment warm/dry. HEAD: Atraumatic. Normocephalic. EYES: Pupils equal and round. No scleral icterus. No injection or drainage. ENT: No active bleeding from nose. There is some blood on outer dose and around mouth and on his shirt. NECK: Trachea midline. No JVD. CARDIOVASCULAR: Tachycardic. No murmur appreciated. RESPIRATORY: No accessory muscle use. Clear to auscultation. Breath sounds equal bilaterally. GASTROINTESTINAL: Abdomen soft, non-tender, nondistended. GJ tube in place: there is small streaking on gauze that mother said is new. RECTAL: +Black stool. Hemaprompt positive. MUSCULOSKELETAL: No obvious deformities. Contracted extremities. No clubbing. No cyanosis. No edema. NEUROLOGICAL: Awake and alert. Baseline mental status. Nonverbal. Contracted extremities. Data Data Last Documented VS Vital Signs Date Time Temp Pulse Resp B/P (MAP) Pulse Ox O2 Delivery O2 Flow Rate FiO2 09/18/17 12:00 124 20 113/73 (86) 99 Room Air 09/18/17 09:28 98.8 Orders Orders Basic Metabolic Panel (Bmp) (09/18/17 09:28) Complete Blood Count With Diff (09/18/17 09:28) Prothrombin Time / Inr (Pt) (09/18/17 09:28) Act Partial Throm Time (Ptt) (09/18/17 09:28) Chest, Single Ap (09/18/17 09:28) Sodium Chlor 0.9% 1000 Ml Inj (Ns 1000 M (09/18/17 09:45) Electrocardiogram (09/18/17 ) Vascular Access Team Consult/P PRN (09/18/17 09:37) Vascular Poc Ultrasound (09/18/17 ) Sodium Chloride 0.9... W/Pantoprazole In (09/18/17 11:35) Sodium Chloride 0.9... W/Pantoprazole In (09/18/17 11:35) Admit Order (Ed Use Only) (09/18/17 12:11) Consult Gastroenterology (09/18/17 ) Consult Cardiology (09/18/17 ) Labs Laboratory Tests Test 09/18/17 10:05 White Blood Count 14.8 TH/MM3 Red Blood Count 2.78 MIL/MM3 Hemoglobin 8.2 GM/DL Hematocrit 23.4 % Mean Corpuscular Volume 84.2 FL Mean Corpuscular Hemoglobin 29.4 PG Mean Corpuscular Hemoglobin Concent 34.9 % Red Cell Distribution Width 16.6 % Platelet Count 349 TH/MM3 Mean Platelet Volume 8.5 FL Neutrophils (%) (Auto) 74.3 % Lymphocytes (%) (Auto) 20.8 % Monocytes (%) (Auto) 3.9 % Eosinophils (%) (Auto) 0.8 % Basophils (%) (Auto) 0.2 % Neutrophils # (Auto) 10.9 TH/MM3 Lymphocytes # (Auto) 3.1 TH/MM3 Monocytes # (Auto) 0.6 TH/MM3 Eosinophils # (Auto) 0.1 TH/MM3 Basophils # (Auto) 0.0 TH/MM3 CBC Comment AUTO DIFF Differential Total Cells Counted 100 Neutrophils % (Manual) 74 % Band Neutrophils % 1 % Lymphocytes % 18 % Monocytes % 7 % Neutrophils # (Manual) 11.1 TH/MM3 Nucleated Red Blood Cells 2 /100 WBC Differential Comment FINAL DIFF MANUAL Platelet Estimate NORMAL Platelet Morphology Comment NORMAL Polychromasia 3.3 % Acanthocytes OCC Keratocytes OCC Prothrombin Time 10.3 SEC Prothromb Time International Ratio 1.0 RATIO Activated Partial Thromboplast Time 21.1 SEC Blood Urea Nitrogen 23 MG/DL Creatinine 0.66 MG/DL Random Glucose 73 MG/DL Calcium Level 8.0 MG/DL Sodium Level 144 MEQ/L Potassium Level 4.0 MEQ/L Chloride Level 110 MEQ/L Carbon Dioxide Level 23.4 MEQ/L Anion Gap 11 MEQ/L Estimat Glomerular Filtration Rate 166 ML/MIN MDM Medical Decision Making Medical Screen Exam Complete: Yes Emergency Medical Condition: Yes Interpretation(s) EKG: Sinus tachycardia at 126bpm. Normal axis. TWI III. Differential Diagnosis Bleed from gastric ulcer vs. epistaxis vs. bleed from GJ site Narrative Course 37yo M with cerebral palsy here after having blood found on his shirt, there was some clots. Unknown where the blood came from but pt has recent history of GI bleed. Pt is tachycardic in the 130s. IV access was difficult but I was able to obtain a 20 gauge in left wrist. NS IVF given. Pt given NS protonix IV and now on protonix drip. Vascular access consulted to obtain a second IV site. Labs reviewed, leukocytosis at 14.8. H/H low at 8.2/23.4 which is a significant decreased from 11.3/34.9 from yesterday. BUN elevated at 23, consistent with GI bleed. CXR negative. Discussed with Dr. St and he wanted me to place a GI consult and a cardiology consult for Dr. Mckeon. Also wanted a repeat hemoglobin in 6 hours from arrival so timed order place. Pt reevaluated at bedside. HR 97-100bpm. BP 123/63. He has not had any episode of hematemesis. Repeat hemoglobin 6.7. Ordered 2 units of PRBC to be transfused now. Dr. St was called. Critical Care Narrative Aggregate critical care time was 45 minutes. Time to perform other separately billable procedures was not included in the critical care time. My time did not include minutes spent treating any other patients simultaneously or on activities that did not directly contribute to the patient's treatment. The services I provided to this patient were to treat and/or prevent clinically significant deterioration that could result in: cardiovascular collapse or . I provided critical care services requiring my management, as noted below: Chart data review, documentation time, medication orders and management, vital sign assessments/reviewing monitor data, ordering and reviewing lab tests, ordering and interpreting/reviewing x-rays and diagnostic studies, care of the patient and discussion of the patient with the admitting physicians. HemaPrompt Point of Care Internal Pos. & Neg. Controls: Passed Fecal Specimen Occult Blood: Positive Diagnosis Primary Impression: GI bleed Qualified Codes: K29.71 - Gastritis, unspecified, with bleeding Admitting Information Admitting Physician Requests: Admit Gwendolyn Marmolejo DO Sep 18, 2017 09:43
[2017-09-18] MEDS ORDERED: SODIUM CHLOR 0.9% 1000 ML INJ 1,000 ML IV ONE (09:45)
[2017-09-18 10:27] LABS: AUTOMATED NEUTROPHIL # 10.9 TH/MM3 (1.8-7.7); BASOPHIL % 0.2 % (0.0-2.0); EOSINOPHIL # 0.1 TH/MM3 (0-0.4); EOSINOPHIL % 0.8 % (0.0-4.0); HEMATOCRIT 23.4 % (39.0-51.0); LYMPH % 20.8 % (9.0-44.0); LYMPHOCYTE # 3.1 TH/MM3 (1.0-4.8); MEAN CELL VOLUME 84.2 FL (80.0-100.0); MEAN CORPUSCULAR HEMOGLOBIN 29.4 PG (27.0-34.0); MEAN CORPUSCULAR HGB CONC 34.9 % (32.0-36.0); MONO % 3.9 % (0.0-8.0); NEUT % 74.3 % (16.0-70.0); PLATELET COUNT 349 TH/MM3 (150-450); RED BLOOD COUNT 2.78 MIL/MM3 (4.50-5.90); RED CELL DISTRIBUTION WIDTH 16.6 % (11.6-17.2); WHITE BLOOD COUNT 14.8 TH/MM3 (4.0-11.0)
[2017-09-18 10:33] LABS: HEMO FLAGS AUTO DIFF
[2017-09-18 10:40] LABS: APTT (PATIENT) 21.1 SEC (24.3-30.1); PROTHROMBIN TIME - PATIENT 10.3 SEC (9.8-11.6)
--- NOTE | 2017-09-18 10:59 | RADRPT ---
EXAM DATE/TIME: 09/18/2017 10:32 [facility] COMPARISON: CHEST SINGLE AP, May 12, 2017, 1:48. INDICATIONS : Possible aspiration MEDICAL HISTORY : Seizures. Cardiovascular disease Hernia, hiatal.cerebral palsy. SURGICAL HISTORY : G-J tube ENCOUNTER: Initial ACUITY: 1 day PAIN SCORE: Non-responsive. LOCATION: Bilateral chest FINDINGS: A single view of the chest demonstrates the lungs to be symmetrically aerated without evidence of mas s, infiltrate or effusion. The cardiomediastinal contours are unremarkable. There is a pronounced ri ghtward lower thoracic scoliosis. CONCLUSION: Lungs are clear. Stable volume loss due to the scoliosis. No focal infiltrates seen. Devin Hassan MD on September 18, 2017 at 10:56 Board Certified Radiologist. This report was verified electronically.
[2017-09-18 11:12] LABS: BICARBONATE 23.4 MEQ/L (21.0-32.0)
[2017-09-18 11:17] LABS: BANDS 1 % (0-6); CORRECTED NUCLEATED RBC 2 /100 WBC (0-0); NEUTROPHIL # MANUAL DIFF 11.1 TH/MM3 (1.8-7.7); POLYS (SEG NEUTROPHILS) 74 % (16-70); WBC DIFF SAMPLE 100
[2017-09-18 11:18] LABS: PLATELET ESTIMATE SMEAR NORMAL (NORMAL); PLATELET MORPHOLOGY NORMAL (NORMAL); POLYCHROMASIA 3.3 % (0.0-1.9); SCAN/DIFF FINAL DIFF MANUAL
[2017-09-18 11:19] LABS: ACANTHOCYTES OCC (NORMAL); KERATOCYTES OCC (NORMAL)
[2017-09-18] MEDS ORDERED: PANTOPRAZOLE INJ 80 MG in SODIUM CHLORIDE 0.9% INJ 35 ML IV ONE (11:35)
[2017-09-18] MEDS: PANTOPRAZOLE INJ 80 MG in SODIUM CHLORIDE 0.9% INJ 100 ML IV SCH ×2 (12:38→22:48)
--- NOTE | 2017-09-18 13:58 | PD.CONS ---
HPI History of Present Illness This is a 37 year old male with CP and hx roel fundoplication, bowel adhesions who was brought to ER by his mother after she found him with melanotic stool and blood clots that appeared to have come out of his nose and mouth. He had GJ tube replaced by IR at [facility] 1 week ago and reportedly there was some bleeding after and melanotic stool in the last 5 days. He has hx UGIB. He had EGD by Dr mares 09/14/17 with finding of stricutre distal esophagus, ulcer gastric body g tube in good position. His Hgb has dropped from 11.3 to 8.2 since yesterday. Mother reports it appears pt was being fed via G tube and Gtube supposed to be for meds, TF only in J tube. Hx obtained from EMR and pts mother. (Carley Khan) PFSH Past Medical History cerebral palsy daryl esophagitis hiatal hernia bowel adhesions Past Surgical History roel fundoplication GJ palcement es lap EDIS (Carley Khan) Coded Allergies: *MDRO Multi-Drug Resistant Organism (Verified Adverse Reaction, Unknown, 09/18/17) MDR Pseudomonas (sputum) - 11/09/16 Family History unk Social History unk (Carley Khan) Review of Systems ROS noncontributory (Carley Khan) GI Exam Vitals I&O Vital Signs Date Time Temp Pulse Resp B/P (MAP) Pulse Ox O2 Delivery O2 Flow Rate FiO2 09/18/17 12:00 124 20 113/73 (86) 99 Room Air 09/18/17 09:28 98.8 144 22 122/78 (93) 99 Room Air 09/18/17 09:10 98.8 138 22 122/78 (93) 99 I/O 09/17/17 09/17/17 09/17/17 09/18/17 09/18/17 09/18/17 07:00 15:00 23:00 07:00 15:00 23:00 Intake Total 1035 ml Balance 1035 ml Intake IV Total 1035 ml Imaging Last Impressions Chest X-Ray 09/18/17927 Signed Impressions: Service Date/Time: Monday, September 18, 2017 10:32 - CONCLUSION: Lungs are clear. Stable volume loss due to the scoliosis. No focal infiltrates seen. Devin Hassan MD Laboratory Test 09/18/17 10:05 White Blood Count 14.8 TH/MM3 Red Blood Count 2.78 MIL/MM3 Hemoglobin 8.2 GM/DL Hematocrit 23.4 % Mean Corpuscular Volume 84.2 FL Mean Corpuscular Hemoglobin 29.4 PG Mean Corpuscular Hemoglobin Concent 34.9 % Red Cell Distribution Width 16.6 % Platelet Count 349 TH/MM3 Mean Platelet Volume 8.5 FL Neutrophils (%) (Auto) 74.3 % Lymphocytes (%) (Auto) 20.8 % Monocytes (%) (Auto) 3.9 % Eosinophils (%) (Auto) 0.8 % Basophils (%) (Auto) 0.2 % Neutrophils # (Auto) 10.9 TH/MM3 Lymphocytes # (Auto) 3.1 TH/MM3 Monocytes # (Auto) 0.6 TH/MM3 Eosinophils # (Auto) 0.1 TH/MM3 Basophils # (Auto) 0.0 TH/MM3 CBC Comment AUTO DIFF Differential Total Cells Counted 100 Neutrophils % (Manual) 74 % Band Neutrophils % 1 % Lymphocytes % 18 % Monocytes % 7 % Neutrophils # (Manual) 11.1 TH/MM3 Nucleated Red Blood Cells 2 /100 WBC Differential Comment FINAL DIFF MANUAL Platelet Estimate NORMAL Platelet Morphology Comment NORMAL Polychromasia 3.3 % Acanthocytes OCC Keratocytes OCC Prothrombin Time 10.3 SEC Prothromb Time International Ratio 1.0 RATIO Activated Partial Thromboplast Time 21.1 SEC Blood Urea Nitrogen 23 MG/DL Creatinine 0.66 MG/DL Random Glucose 73 MG/DL Calcium Level 8.0 MG/DL Sodium Level 144 MEQ/L Potassium Level 4.0 MEQ/L Chloride Level 110 MEQ/L Carbon Dioxide Level 23.4 MEQ/L Anion Gap 11 MEQ/L Estimat Glomerular Filtration Rate 166 ML/MIN Physical Examination HEENT: normocephalic; atraumatic; no jaundice. CHEST: coarse CARDIAC: RRR ABDOMEN: Soft, nondistended, nontender; no hepatosplenomegaly; bowel sounds are present in all four quadrants. PEG tube has what appears to be old blood EXTREMITIES: contractures BUE, LLE SKIN: Normal; no rash; no jaundice. DIRECTOR OF INDUSTRIAL RELATIONS: nonverbal (Carley Khan) Assessment and Plan Plan ASSESSMENT - anemia with drop in hgb, melanotic stool, bleeding of unclear origin - pt found this morning with melanotic stool and blood clots around nose and mouth, down shirt. on exam there is some coffeeground appearance in PEG tube close to abd. EGD 09/14 did show nonbleeding ulcer. hgb dropped from 11.3 to 8.4 since yesterday. PLAN - consider EGD - TF through J tube only - protonix drip - stat bleed scan if active bleeding - monitor labs - transfuse if needed - further recs to follow This pt seen by myself and Dr Scott and this note is written on his behalf (Carley Khan) Physician Comments Seen and examined, plan as above, will discuss with family plan and possible EGD , (Shyanne Scott MD) Carley Khan Sep 18, 2017 13:58 Shyanne Scott MD Sep 18, 2017 14:19
--- NOTE | 2017-09-18 15:11 | EKG ---
Date Performed: 09/18/2017 Time Performed: 10:29:54 PTAGE: 37 years EKG: SINUS TACHYCARDIA POSSIBLE ANTERIOR MYOCARDIAL INFARCTION ABNORMAL ECG Compared to prior el ectrocardiogram, Nonspecific T wave changes are less marked PREVIOUS TRACING : 09/08/2017 22.47 DOCTOR: Arnaud Crain Interpretating Date/Time 09/18/2017 15:10:11
[2017-09-18] MEDS ORDERED: SENNOSIDES 8.6 MG TAB PO PRN (15:30)
[2017-09-18] MEDS ORDERED: ACETAMINOPHEN 325 MG TAB PO PRN (15:30)
[2017-09-18] MEDS ORDERED: MAGNESIUM HYDROXIDE SUSP 30 ML CUP PO PRN (15:30)
[2017-09-18] MEDS ORDERED: ONDANSETRON HCL 4 MG/2 ML VIAL IVP PRN (15:30)
[2017-09-18] MEDS ORDERED: SODIUM CHLORIDE 0.9% FLUSH 10 ML FLUSH IV FLUSH PRN (15:30)
[2017-09-18] MEDS ORDERED: ALPRAZolam 0.5 MG TAB PO PRN (15:30)
[2017-09-18] MEDS ORDERED: LACTULOSE SYRUP 20 GM/30 ML CUP PO PRN (15:30)
[2017-09-18] MEDS ORDERED: BISACODYL 10 MG SUPP RECTAL PRN (15:30)
[2017-09-18] MEDS ORDERED: NALOXONE HCL 0.4 MG/ML AMP IV PUSH PRN (15:30)
[2017-09-18] MEDS: DEXT 5%-NACL 0.45% 1000 ML INJ 1,000 ML IV SCH (17:21)
[2017-09-18] MEDS ORDERED: SODIUM CHLOR 0.9% 250 ML INJ 250 ML IV ONE (17:30)
--- NOTE | 2017-09-18 20:01 | MB ---
cc: SEVERINO COKER DO DATE OF CONSULTATION 09/18/2017 REASON FOR CONSULTATION Tachycardia. HISTORY OF PRESENT ILLNESS Remigio Thakur is a 37-year-old male who was recently discharged from [facility] after presenting with GI bleed. He recently had an EGD done on September 14, 2017 and there was an ulcer noted in the gastric body with his G tube in good position. Apparently this morning the mother found him with blood all over his neck and shoulder possibly due to emesis. He was brought in due to this GI bleed. Upon arrival he was found to have a hemoglobin which dropped from 11.3 yesterday to 8.2 today. While here he was noted to be tachycardiac and I was consulted as such. PAST MEDICAL HISTORY 1. Cerebral palsy. 2. Francoise esophagitis. 3. Hiatal hernia. 4. Gastric ulcer. 5. Bowel adhesions. PAST SURGICAL HISTORY 1. Brina fundoplication. 2. GJ placement. 3. Lysis of adhesions by exploratory laparotomy. ALLERGIES NO KNOWN DRUG ALLERGIES. MEDICATIONS 1. Phenytoin 100 mg b.i.d. 2. Topamax 100 mg b.i.d. 3. Trazodone 25 mg as needed to control depression. 4. Xanax 0.5 mg every 8 hours as needed for anxiety. 5. Fludrocortisone 0.2 mg daily. FAMILY HISTORY Unknown at this time. SOCIAL HISTORY No previously noted use of alcohol, tobacco or drugs. REVIEW OF SYSTEMS Unable to obtain secondary to the patient's current state. PHYSICAL EXAMINATION VITAL SIGNS: Temperature 98.8, heart rate 108, blood pressure 113/73, respiratory rate 20, pulse oximetry 99% on room air. GENERAL: The patient is normocephalic, atraumatic. Pupils are equal and round. Mucous membranes moist. NECK: Supple. No JVD at 45 degrees. No carotid bruits heard bilaterally. Carotid upstroke is brisk in nature. CARDIOVASCULAR: Heart is regular rate and rhythm. Positive first and second heart sounds with no noted murmurs, gallops or rubs. LUNGS: The lungs have decreased breath sounds bilaterally. No overt wheezes, rales or rhonchi. ABDOMEN: Soft, nontender, nondistended. No organomegaly noted. EXTREMITIES: Show chronic contracture. NEUROLOGIC: The patient is alert and noncommunicative. SKIN: Warm, dry and intact. LABORATORY FINDINGS Hemoglobin 8.2, hematocrit 23.4, platelets 349. Potassium 4.0, BUN 23, creatinine 0.66. IMPRESSION 1. Upper GI bleed most likely with reccurrence. 2. Sinus tachycardia. 3. History of cerebral palsy. RECOMMENDATIONS 1. Mr. Thakur appears to have sinus tachycardia and this is most likely due to his underlying illness with upper GI bleed and anemia. 2. Would not treat this with any type of AV poonam blocking agents at this time. Treatment will be for his underlying illness which includes his anemia and possible upper GI bleed. 3. We will defer to the primary team as well as gastroenterology for further recommendations. 4. We will see as needed. Please call with questions. Thank you for allowing me to see Remigio Thakur. If there are any questions please do not hesitate to call. Severino Coker DO VGP/KK /6:45 PM /7:44 PM
[2017-09-18] MEDS ORDERED: CHLORHEXIDINE GLUCONATE 2 % 1 PACK (2 CLOTHS) TOPICAL PRN (20:30)
[2017-09-18] MEDS ORDERED: SODIUM CHLORID 0.9% 500 ML IV PRN (20:30)
[2017-09-18] MEDS ORDERED: METOPROLOL TARTRATE 25 MG TAB PO PRN (20:30)
[2017-09-18] MEDS ORDERED: POVIDONE IODINE 5% (ANTISEPSIS KIT) 4 APPLICATIONS EACH NARE PRN (20:30)
[2017-09-18] MEDS ORDERED: LACTATED RINGER'S 1000 ML IV PRN (20:30)
[2017-09-18] MEDS: PANTOPRAZOLE SODIUM 40 MG VIAL IV PUSH SCH (21:00)
[2017-09-18] MEDS: SODIUM CHLORIDE 0.9% FLUSH 10 ML FLUSH IV FLUSH SCH (21:00)
[2017-09-18] MEDS: PHENYTOIN SUSP 100 MG/4 ML CUP PO SCH (22:48)
[2017-09-18] MEDS: DOCUSATE SODIUM 50 MG/SENNA 8.6 MG TAB PO SCH (22:48)
[2017-09-18] MEDS: TOPIRAMATE 100 MG TAB PO SCH (22:48)
[2017-09-19] VITALS (12 sets, daily range): BP systolic 91–108; BP diastolic 50–96; PULSE 62–94; RESP 16–20; TEMP 95.2–97.6; O2SAT 96–100
[2017-09-19] MEDS: PANTOPRAZOLE INJ 80 MG in SODIUM CHLORIDE 0.9% INJ 100 ML IV SCH ×2 (08:48→17:26)
[2017-09-19] MEDS: SODIUM CHLORIDE 0.9% FLUSH 10 ML FLUSH IV FLUSH SCH ×2 (08:49→21:00)
[2017-09-19] MEDS: TOPIRAMATE 100 MG TAB PO SCH ×2 (08:49→22:21)
[2017-09-19] MEDS: DOCUSATE SODIUM 50 MG/SENNA 8.6 MG TAB PO SCH ×2 (08:49→22:21)
[2017-09-19] MEDS: PHENYTOIN SUSP 100 MG/4 ML CUP PO SCH ×2 (08:50→22:21)
[2017-09-19] MEDS: PANTOPRAZOLE SODIUM 40 MG VIAL IV PUSH SCH (08:50)
[2017-09-19] MEDS: FLUDROCORTISONE ACETATE 0.1 MG TAB PO SCH (08:56)
--- NOTE | 2017-09-19 10:01 | HHI.HP ---
History of Present Illness Primary Care Physician Andrew St MD Admission Diagnosis GI bleed Diagnoses: (1) GI bleed (2) CP (cerebral palsy) (3) Dislodged gastrostomy tube (4) Feeding by G-tube (5) Pain (6) Cerebral palsy (7) Lethargy (8) Development delay History of Present Illness 37 y AAM. RECENT DC S/P EGD. COFFEE GROUND EMESIS PER MOTHER, BROUGHT PT INTO [facility]. PT TRANSFUSED. SEEN BY EGD. POSSIBLE SCOPE AGAIN. PT APHASIC AND HISTORY FROM RECORDS OTHERWISE. Review of Systems ROS Limitations: Clinical Condition, Altered Mental Status, Combative, Poor Historian Past Family Social History Allergies: Coded Allergies: *MDRO Multi-Drug Resistant Organism (Verified Adverse Reaction, Unknown, 09/18/17) MDR Pseudomonas (sputum) - 11/09/16 Past Medical History CP SZ GIB TACHY Past Surgical History GT Active Ordered Medications Current Medications Medications (Trade) Dose Ordered Sig/Carlotta Route PRN Reason Start Time Stop Time Status Last Admin Dose Admin Pantoprazole Sodium 80 mg/ Sodium Chloride 100 ml @ 10 mls/hr Q10H IV 09/18/17 11:35 09/19/17 08:48 Cefazolin Sodium 1000 mg/Sodium Chloride 100 ml @ 200 mls/hr SHOE PARTS MOLDER IV 09/18/17 14:30 09/21/17 14:29 Sodium Chloride (NS Flush) 2 ml UNSCH PRN IV FLUSH FLUSH AFTER USING IV ACCESS 09/18/17 15:30 Sodium Chloride (NS Flush) 2 ml BID IV FLUSH 09/18/17 21:00 09/19/17 08:49 Acetaminophen (Tylenol) 650 mg Q4H PRN PO TEMP > 100.4 09/18/17 15:30 Ondansetron HCl (Zofran Inj) 4 mg Q6H PRN IVP NAUSEA OR VOMITING 09/18/17 15:30 Naloxone HCl (Narcan Inj) 0.4 mg UNSCH PRN IV PUSH SEE LABEL COMMENTS 09/18/17 15:30 Senna/Docusate Sodium (Violetta-Colace) 1 tab BID PO 09/18/17 21:00 09/19/17 08:49 Magnesium Hydroxide (Milk Of Magnesia Liq) 30 ml Q12H PRN PO Mild constipation 09/18/17 15:30 Sennosides (Senokot) 17.2 mg Q12H PRN PO Moderate constipation 09/18/17 15:30 Bisacodyl (Dulcolax Supp) 10 mg DAILY PRN RECTAL SEVERE CONSITIPATION 09/18/17 15:30 Lactulose (Lactulose Liq) 30 ml DAILY PRN PO SEVERE CONSITIPATION 09/18/17 15:30 Dextrose/Sodium Chloride 1,000 ml @ 84 mls/hr [id number] IV 09/18/17 15:30 09/18/17 17:21 Pantoprazole Sodium (Protonix Inj) 40 mg BID IV PUSH 09/18/17 21:00 09/19/17 08:50 Alprazolam (Xanax) 0.5 mg Q8H PRN PO ANXIETY 09/18/17 15:30 Fludrocortisone Acetate (Florinef) 0.2 mg DAILY PO 09/19/17 09:00 09/19/17 08:56 Phenytoin (Dilantin Liq) 100 mg BID PO 09/18/17 21:00 09/19/17 08:50 Topiramate (Topamax) 100 mg BID PO 09/18/17 21:00 09/19/17 08:49 Sodium Chloride 250 ml @ 15 mls/hr ONCE ONCE IV 09/18/17 17:30 09/19/17 10:09 Lactated Ringer's 1,000 ml @ 30 mls/hr Q24H PRN IV SEE LABEL COMMENTS 09/18/17 20:30 09/21/17 20:29 Sodium Chloride 500 ml @ 30 mls/hr [id number] PRN IV SEE LABEL COMMENTS 09/18/17 20:30 09/21/17 20:29 Metoprolol Tartrate (Lopressor) 25 mg SHOE PARTS MOLDER PRN PO SEE LABEL COMMENTS 09/18/17 20:30 09/21/17 20:29 Povidone Iodine (Betadine 5% Antisepsis Kit) 1 applic SHOE PARTS MOLDER PRN EACH NARE SEE LABEL COMMENTS 09/18/17 20:30 09/21/17 20:29 Chlorhexidine Gluconate (Chlorhexidine 2% Cloth) 3 pack SHOE PARTS MOLDER PRN TOPICAL SEE LABEL COMMENTS 09/18/17 20:30 09/21/17 20:29 Family History NC Social History NO E/T/D, Physical Exam Vital Signs Vital Signs Date Time Temp Pulse Resp B/P (MAP) Pulse Ox O2 Delivery O2 Flow Rate FiO2 09/19/17 07:48 97.2 73 16 107/59 (75) 96 09/19/17 05:15 95.2 91 20 108/58 98 09/19/17 04:51 95.2 75 20 97/50 99 09/19/17 04:15 95.2 75 20 97/50 99 09/19/17 04:00 97.1 62 20 97/60 (72) 97 09/19/17 00:50 96.1 94 18 98/55 100 09/19/17 00:26 96.1 80 18 91/53 100 09/19/17 00:00 96.1 80 18 91/53 (66) 100 09/18/17 18:30 97.0 116 18 111/56 (74) 97 09/18/17 18:02 98 18 124/70 (88) 98 09/18/17 17:31 98 18 127/62 (83) 98 Room Air 09/18/17 17:17 99 21 09/18/17 12:00 124 20 113/73 (86) 99 Room Air Physical Exam GENERAL: This is a well-nourished, well-developed patient, in no apparent distress. SKIN: No rashes, ecchymoses or lesions. Cool and dry. HEAD: Atraumatic. Normocephalic. No temporal or scalp tenderness. EYES: Pupils equal round and reactive. Extraocular motions intact. No scleral icterus. No injection or drainage. ENT: Nose without bleeding, purulent drainage or septal hematoma. Throat without erythema, tonsillar hypertrophy or exudate. Uvula midline. Airway patent. NECK: Trachea midline. No JVD or lymphadenopathy. Supple, nontender, no meningeal signs. CARDIOVASCULAR: Regular rate and rhythm without murmurs, gallops, or rubs. RESPIRATORY: Clear to auscultation. Breath sounds equal bilaterally. No wheezes , rales, or rhonchi. GASTROINTESTINAL: Abdomen soft, non-tender, nondistended. No hepato-splenomegaly , or palpable masses. No guarding. MUSCULOSKELETAL: Extremities without clubbing, cyanosis, or edema. No joint tenderness, effusion, or edema noted. No calf tenderness. Negative Homans sign bilaterally. NEUROLOGICAL: Awake and alert. Laboratory Laboratory Tests Test 09/18/17 10:05 09/18/17 16:30 White Blood Count 14.8 Red Blood Count 2.78 Hemoglobin 8.2 6.7 Hematocrit 23.4 Mean Corpuscular Volume 84.2 Mean Corpuscular Hemoglobin 29.4 Mean Corpuscular Hemoglobin Concent 34.9 Red Cell Distribution Width 16.6 Platelet Count 349 Mean Platelet Volume 8.5 Neutrophils (%) (Auto) 74.3 Lymphocytes (%) (Auto) 20.8 Monocytes (%) (Auto) 3.9 Eosinophils (%) (Auto) 0.8 Basophils (%) (Auto) 0.2 Neutrophils # (Auto) 10.9 Lymphocytes # (Auto) 3.1 Monocytes # (Auto) 0.6 Eosinophils # (Auto) 0.1 Basophils # (Auto) 0.0 CBC Comment AUTO DIFF Differential Total Cells Counted 100 Neutrophils % (Manual) 74 Band Neutrophils % 1 Lymphocytes % 18 Monocytes % 7 Neutrophils # (Manual) 11.1 Nucleated Red Blood Cells 2 Differential Comment FINAL DIFF MANUAL Platelet Estimate NORMAL Platelet Morphology Comment NORMAL Polychromasia 3.3 Acanthocytes OCC Keratocytes OCC Prothrombin Time 10.3 Prothromb Time International Ratio 1.0 Activated Partial Thromboplast Time 21.1 Blood Urea Nitrogen 23 Creatinine 0.66 Random Glucose 73 Calcium Level 8.0 Sodium Level 144 Potassium Level 4.0 Chloride Level 110 Carbon Dioxide Level 23.4 Anion Gap 11 Estimat Glomerular Filtration Rate 166 Result Diagram: 09/18/17 1630 09/18/17 1005 Imaging Last 72 hours Impressions Chest X-Ray 09/18/17 0928 Signed Impressions: Service Date/Time: Monday, September 18, 2017 10:32 - CONCLUSION: Lungs are clear. Stable volume loss due to the scoliosis. No focal infiltrates seen. Devin Hassan MD Caprini VTE Risk Assessment Caprini Risk Assessment Model Point Value = 1 Point Value = 2 Point Value = 3 Point Value = 5 Age 41-60 Minor surgery BMI > 25 kg/m2 Swollen legs Varicose veins or History of unexplained or recurrent spontaneous Oral contraceptives or hormone replacement Sepsis (< 1 month) Serious lung disease, including pneumonia (< 1 month) Abnormal pulmonary function Acute myocardial infarction Congestive heart failure (< 1 month) History of inflammatory bowel disease Medical patient at bed rest Age 61-74 Arthroscopic surgery Major open surgery (> 45 min) Laparoscopic surgery (> 45 min) Malignancy Confined to bed (> 72 hours) Immobilizing plaster cast Central venous access Age >= 75 History of VTE Family history of VTE Factor V Leiden Prothrombin [id number] Lupus anticoagulant Anticardiolipin antibodies Elevated serum homocysteine Heparin-induced thrombocytopenia Other congenital or acquired thrombophilia Stroke (< 1 month) Elective arthroplasty Hip, pelvis, or leg fracture Acute spinal cord injury (< 1 month) Prophylaxis Regimen Total Risk Factor Score Risk Level Prophylaxis Regimen 0-1 Low Early ambulation 2 Moderate Order ONE of the following: *Sequential Compression Device (SCD) *Heparin 5000 units SQ BID 3-4 Higher Order ONE of the following medications: *Heparin 5000 units SQ TID *Enoxaparin/Lovenox 40 mg SQ daily (WT < 150 kg, CrCl > 30 mL/min) *Enoxaparin/Lovenox 30 mg SQ daily (WT < 150 kg, CrCl > 10-29 mL/min) *Enoxaparin/Lovenox 30 mg SQ BID (WT < 150 kg, CrCl > 30 mL/min) AND/OR *Sequential Compression Device (SCD) 5 or more Highest Order ONE of the following medications: *Heparin 5000 units SQ TID (Preferred with Epidurals) *Enoxaparin/Lovenox 40 mg SQ daily (WT < 150 kg, CrCl > 30 mL/min) *Enoxaparin/Lovenox 30 mg SQ daily (WT < 150 kg, CrCl > 10-29 mL/min) *Enoxaparin/Lovenox 30 mg SQ BID (WT < 150 kg, CrCl > 30 mL/min) AND *Sequential Compression Device (SCD) Assessment and Plan Problem List: (1) PEG (percutaneous endoscopic gastrostomy) status ICD Codes: Z93.1 - Gastrostomy status Status: Chronic (2) Dislodged gastrostomy tube ICD Codes: Z43.1 - Encounter for attention to gastrostomy Status: Acute (3) Feeding by G-tube ICD Codes: Z93.1 - Gastrostomy status Status: Chronic (4) Pain ICD Codes: R52 - Pain, unspecified Status: Acute (5) Development delay ICD Codes: R62.50 - Developmental delay Status: Acute (6) CP (cerebral palsy) ICD Codes: G80.9 - Cerebral palsy, unspecified Status: Acute (7) Cerebral palsy ICD Codes: G80.9 - Cerebral palsy Status: Acute (8) Lethargy ICD Codes: R53.83 - Other fatigue Status: Acute (9) GI bleed ICD Codes: K92.2 - Gastrointestinal hemorrhage, unspecified Status: Acute (10) Bradycardia ICD Codes: R00.1 - Bradycardia, unspecified Status: Acute (11) Cardiomyopathy ICD Codes: I42.9 - Cardiomyopathy, unspecified Status: Acute Assessment and Plan PLAN: IV PROTONIX GI CONSULT CARDIO CONSULT SERIAL LABS IVF FOLLOWUP LABS Problem Qualifiers (1) GI bleed: Qualified Codes: K29.71 - Gastritis, unspecified, with bleeding Andrew St MD Sep 19, 2017 10:01
[2017-09-19] MEDS ORDERED: ONDANSETRON HCL 4 MG/2 ML VIAL IV ONE (12:00)
[2017-09-19] MEDS ORDERED: DEXAMETHASONE SOD PHOS 4 MG/ML VIAL IV ONE (12:00)
[2017-09-19] MEDS ORDERED: GLYCOPYRROLATE 1 MG/5 ML SYRINGE IV PUSH ONE (12:00)
[2017-09-19] MEDS ORDERED: PROPOFOL 200 MG/20 ML AMP IV ONE (12:00)
[2017-09-19] MEDS ORDERED: LIDOCAINE HCL 1% PF 5 ML SYRINGE OTHER ONE (12:00)
[2017-09-19] MEDS ORDERED: SUCCINYLCHOLINE CHLORIDE 100 MG/5 ML SYRINGE IV PUSH ONE (12:00)
[2017-09-19] MEDS ORDERED: ROCURONIUM INJ 50 MG/5 ML SYRINGE IV PUSH ONE (12:00)
[2017-09-19] MEDS ORDERED: DO NOT ADM ANY ANTICOAGULANT DRUGS PRN (13:00)
--- NOTE | 2017-09-19 13:05 | GIPROC ---
[facility] [address] [facility]. [facility], [address] EGD PROCEDURE REPORT EXAM DATE: 09/19/2017 PATIENT NAME: Remigio Thakur MR #: [id number] BIRTHDATE: 1980 ATTENDING: Shyanne Scott MD ORDER #: [id number] PHYSICAL THERAPY AIDES TEACHER: Suzanna Matta RN STATUS: inpatient INDICATIONS: The patient is a 37 yr old male here for an EGD due to hematemesis PROCEDURE PERFORMED: EGD with Endoclip Application MEDICATIONS: None and Per Anesthesia. TOPICAL ANESTHETIC: none CONSENT: The patient understands the risks and benefits of the procedure and understands that these risks include, but are not limited to: sedation, allergic reaction, infection, perforation and/or bleeding. Alternative means of evaluation and treatment include, among others: physical exam, x-rays, and/or surgical intervention. The patient elects to proceed with this endoscopic procedure. medical equipment was checked for proper function. Hand hygiene and appropriate measures for infection prevention was taken. After the risks, benefits and alternatives of the procedure were thoroughly explained, Informed consent was verified, confirmed and timeout was successfully executed by the treatment team. The patient was anesthetized with topical anesthesia and the [employer] [id number] endoscope was introduced through the mouth and advanced to the pylorus. Retroflexion was performed and was normal The gastroscope was then slowly withdrawn and removed. ESOPHAGUS: The esophagus was otherwise normal. STOMACH: Multiple large scaring was seen in the gastric fundus and gastric body. A medium sized non-bleeding and round ulcer with a pigmented spot was found on the lesser curvature of the stomach. Complete hemostasis was achieved by placing a single Cook instinct hemoclip on the bleeding site(s). ADVERSE EVENTS: There were no complications. IMPRESSIONS: 1. The esophagus was otherwise normal 2. Scaring was seen in the gastric fundus and gastric body 3. Medium sized ulcer was found on the lesser curvature of the stomach; Complete hemostasis was achieved by placing a single hemoclip on the bleeding site(s) 4. Retroflexion was performed and was normal RECOMMENDATIONS: Continue PPI PATIENT CONDITION: stable DISPOSITION: Observation REPEAT EXAM: NONE Shyanne Scott MD eSigned: Shyanne Scott MD 09/19/2017 1:05 PM cc: PATIENT NAME: Remigio Thakur MR#: [id number]
[2017-09-19] MEDS: DEXT 5%-NACL 0.45% 1000 ML INJ 1,000 ML IV SCH ×2 (14:33→14:34)
[2017-09-20] VITALS (7 sets, daily range): BP systolic 97–144; BP diastolic 52–75; PULSE 62–84; RESP 15–19; TEMP 95.6–97.2; O2SAT 96–100
[2017-09-20] MEDS: PANTOPRAZOLE INJ 80 MG in SODIUM CHLORIDE 0.9% INJ 100 ML IV SCH ×2 (04:17→13:04)
[2017-09-20] MEDS: DEXT 5%-NACL 0.45% 1000 ML INJ 1,000 ML IV SCH ×2 (04:17→15:10)
[2017-09-20 07:10] LABS: ALKALINE PHOSPHATASE 102 U/L (45-117); ALT (GPT) 30 U/L (12-78); ANION GAP 9 MEQ/L (5-15); AST (GOT) 32 U/L (15-37); BLOOD UREA NITROGEN 7 MG/DL (7-18); CHLORIDE 113 MEQ/L (98-107); GLOMERULAR FILTRATION RATE 201 ML/MIN (>89); POTASSIUM 4.3 MEQ/L (3.5-5.1); SODIUM (NA) 143 MEQ/L (136-145); TOTAL BILIRUBIN ADULT 0.3 MG/DL (0.2-1.0)
[2017-09-20] MEDS: SODIUM CHLORIDE 0.9% FLUSH 10 ML FLUSH IV FLUSH SCH (08:58)
[2017-09-20] MEDS: PHENYTOIN SUSP 100 MG/4 ML CUP PO SCH (08:59)
[2017-09-20] MEDS: FLUDROCORTISONE ACETATE 0.1 MG TAB PO SCH (08:59)
[2017-09-20] MEDS: DOCUSATE SODIUM 50 MG/SENNA 8.6 MG TAB PO SCH (08:59)
[2017-09-20] MEDS: TOPIRAMATE 100 MG TAB PO SCH (08:59)
--- NOTE | 2017-09-20 12:02 | HHI.PR ---
Subjective Remarks 37 y male RECENT DC S/P EGD. COFFEE GROUND EMESIS PER MOTHER, BROUGHT PT INTO [facility]. PT TRANSFUSED. SEEN BY GI AND HAD EGD. SCOPED AGAIN. PT APHASIC AND HISTORY FROM RECORDS OTHERWISE. - we have been asked to assume care from Dr. St Patient had EGD yesterday results available in the chart Remains on Protonix IV Objective Vitals Vital Signs Date Time Temp Pulse Resp B/P (MAP) Pulse Ox O2 Delivery O2 Flow Rate FiO2 09/20/17 09:41 96 21 09/20/17 08:00 95.6 70 15 106/58 (74) 97 09/20/17 04:27 84 09/20/17 04:00 96.1 70 18 144/55 (84) 100 09/20/17 00:00 97.2 80 18 97/52 (67) 100 09/19/17 20:10 21 09/19/17 20:00 96.9 80 18 104/55 (71) 100 09/19/17 15:52 97.6 79 16 106/66 (79) 100 09/19/17 13:00 96.6 82 16 122/70 (87) 100 09/19/17 12:00 96 I/O 09/19/17 09/19/17 09/19/17 09/20/17 09/20/17 09/20/17 07:00 15:00 23:00 07:00 15:00 23:00 Intake Total 420 ml 1000 ml 340 ml 240 ml Output Total 225 ml 300 ml Balance 420 ml 1000 ml 115 ml -60 ml Intake Oral 0 ml 240 ml 240 ml IV Total 100 ml Packed Cells 400 ml 400 ml Blood Product IV Normal Saline Flush 20 ml Other 600 ml Output Urine Total 225 ml 300 ml # Voids 2 7 # Bowel Movements 0 0 Result Diagram: 09/19/17 1215 09/20/17 0611 Other Results Laboratory Tests Test 09/18/17 10:05 09/18/17 16:30 09/19/17 12:15 09/20/17 06:11 White Blood Count 14.8 TH/MM3 Red Blood Count 2.78 MIL/MM3 Hemoglobin 8.2 GM/DL 6.7 GM/DL 11.5 GM/DL Hematocrit 23.4 % 35.4 % Mean Corpuscular Volume 84.2 FL Mean Corpuscular Hemoglobin 29.4 PG Mean Corpuscular Hemoglobin Concent 34.9 % Red Cell Distribution Width 16.6 % Platelet Count 349 TH/MM3 Mean Platelet Volume 8.5 FL Neutrophils (%) (Auto) 74.3 % Lymphocytes (%) (Auto) 20.8 % Monocytes (%) (Auto) 3.9 % Eosinophils (%) (Auto) 0.8 % Basophils (%) (Auto) 0.2 % Neutrophils # (Auto) 10.9 TH/MM3 Lymphocytes # (Auto) 3.1 TH/MM3 Monocytes # (Auto) 0.6 TH/MM3 Eosinophils # (Auto) 0.1 TH/MM3 Basophils # (Auto) 0.0 TH/MM3 CBC Comment AUTO DIFF Differential Total Cells Counted 100 Neutrophils % (Manual) 74 % Band Neutrophils % 1 % Lymphocytes % 18 % Monocytes % 7 % Neutrophils # (Manual) 11.1 TH/MM3 Nucleated Red Blood Cells 2 /100 WBC Differential Comment FINAL DIFF MANUAL Platelet Estimate NORMAL Platelet Morphology Comment NORMAL Polychromasia 3.3 % Acanthocytes OCC Keratocytes OCC Prothrombin Time 10.3 SEC Prothromb Time International Ratio 1.0 RATIO Activated Partial Thromboplast Time 21.1 SEC Blood Urea Nitrogen 23 MG/DL 7 MG/DL Creatinine 0.66 MG/DL 0.56 MG/DL Random Glucose 73 MG/DL 97 MG/DL Calcium Level 8.0 MG/DL 7.7 MG/DL Sodium Level 144 MEQ/L 143 MEQ/L Potassium Level 4.0 MEQ/L 4.3 MEQ/L Chloride Level 110 MEQ/L 113 MEQ/L Carbon Dioxide Level 23.4 MEQ/L 21.0 MEQ/L Anion Gap 11 MEQ/L 9 MEQ/L Estimat Glomerular Filtration Rate 166 ML/MIN 201 ML/MIN Total Protein 6.7 GM/DL Albumin 2.6 GM/DL Alkaline Phosphatase 102 U/L Aspartate Amino Transf (AST/SGOT) 32 U/L Alanine Aminotransferase (ALT/SGPT) 30 U/L Total Bilirubin 0.3 MG/DL Imaging Last Impressions Chest X-Ray 09/18/17 0928 Signed Impressions: Service Date/Time: Monday, September 18, 2017 10:32 - CONCLUSION: Lungs are clear. Stable volume loss due to the scoliosis. No focal infiltrates seen. Devin Hassan MD Objective Remarks GENERAL: Patient appears younger than stated age remains nonverbal which is chronic and is quite contracted from his cerebral palsy SKIN: Warm and dry. HEAD: Atraumatic. Normocephalic. EYES: Pupils equal and round. No scleral icterus. No injection or drainage. ENT: No nasal bleeding or discharge. Mucous membranes pink and moist. NECK: Trachea midline. No JVD. CARDIOVASCULAR: Regular rate and rhythm. S1 and S2 no S3 or S4 RESPIRATORY: No accessory muscle use. Clear to auscultation. Breath sounds equal bilaterally. GASTROINTESTINAL: Abdomen soft, non-tender, nondistended. Hepatic and splenic margins not palpable. PEG tube in place MUSCULOSKELETAL: Extremities without clubbing, cyanosis, or edema. Has chronic contractures and diminutive size and chronic cerebral palsy appearance NEUROLOGICAL: Awake and alert. Nonverbal No obvious cranial nerve deficits. Appears to be able to move everything. follows no commands. nonverbal at this time PSYCHIATRIC: INAppropriate mood and affect; insight and judgment ABnormal. Procedures EGD PROCEDURE REPORT EXAM DATE: 09/19/2017 PATIENT NAME: Remigio Thakur MR #: [id number] BIRTHDATE: 1980 ATTENDING: Shyanne Scott MD ORDER #: [id number] SCHEDULE MAKER: Suzanna Matta RN STATUS: inpatient INDICATIONS: The patient is a 37 yr old male here for an EGD due to hematemesis PROCEDURE PERFORMED: EGD with Endoclip Application MEDICATIONS: None and Per Anesthesia. TOPICAL ANESTHETIC: none CONSENT: The patient understands the risks and benefits of the procedure and understands that these risks include, but are not limited to: sedation, allergic reaction, infection, perforation and/or bleeding. Alternative means of evaluation and treatment include, among others: physical exam, x-rays, and/or surgical intervention. The patient elects to proceed with this endoscopic procedure. medical equipment was checked for proper function. Hand hygiene and appropriate measures for infection prevention was taken. After the risks, benefits and alternatives of the procedure were thoroughly explained, Informed consent was verified, confirmed and timeout was successfully executed by the treatment team. The patient was anesthetized with topical anesthesia and the [employer] [id number] endoscope was introduced through the mouth and advanced to the pylorus. Retroflexion was performed and was normal The gastroscope was then slowly withdrawn and removed. ESOPHAGUS: The esophagus was otherwise normal. STOMACH: Multiple large scaring was seen in the gastric fundus and gastric body. A medium sized non-bleeding and round ulcer with a pigmented spot was found on the lesser curvature of the stomach. Complete hemostasis was achieved by placing a single Cook instinct hemoclip on the bleeding site(s). ADVERSE EVENTS: There were no complications. IMPRESSIONS: 1. The esophagus was otherwise normal 2. Scaring was seen in the gastric fundus and gastric body 3. Medium sized ulcer was found on the lesser curvature of the stomach; Complete hemostasis was achieved by placing a single hemoclip on the bleeding site(s) 4. Retroflexion was performed and was normal RECOMMENDATIONS: Continue PPI PATIENT CONDITION: stable DISPOSITION: Observation REPEAT EXAM: NONE Medications and IVs Current Medications Sodium Chloride 1,000 ml @ 999 mls/hr BOLUS ONCE IV Last administered on 10:33; Start 09/18/17 at 09:45; Stop 09/18/17 at 10:45; Status DC Pantoprazole Sodium 80 mg/ Sodium Chloride 35 ml @ 420 mls/hr Q5M ONCE IV Last administered on 09/18/17 11:35; Start 09/18/17 at 11:35; Stop 09/18/17 at 11:39; Status DC Pantoprazole Sodium 80 mg/ Sodium Chloride 100 ml @ 10 mls/hr Q10H IV Last administered on 09/20/17 04:17; Start 09/18/17 at 11:35 Cefazolin Sodium 1000 mg/Sodium Chloride 100 ml @ 200 mls/hr DIRECTOR OF STRATEGIC INITIATIVES IV ; Start 09/18/17 at 14:30; Stop 09/21/17 at 14:29 Sodium Chloride (NS Flush) 2 ml UNSCH PRN IV FLUSH FLUSH AFTER USING IV ACCESS ; Start 09/18/17 at 15:30 Sodium Chloride (NS Flush) 2 ml BID IV FLUSH Last administered on 09/19/17 08 :49; Start 09/18/17 at 21:00 Acetaminophen (Tylenol) 650 mg Q4H PRN PO TEMP > 100.4; Start 09/18/17 at 15: 30 Ondansetron HCl (Zofran Inj) 4 mg Q6H PRN IVP NAUSEA OR VOMITING; Start at 15:30 Naloxone HCl (Narcan Inj) 0.4 mg UNSCH PRN IV PUSH SEE LABEL COMMENTS; Start 09/18/17 at 15:30 Senna/Docusate Sodium (Violetta-Colace) 1 tab BID PO Last administered on 08:59; Start 09/18/17 at 21:00 Magnesium Hydroxide (Milk Of Magnesia Liq) 30 ml Q12H PRN PO Mild constipation ; Start 09/18/17 at 15:30 Sennosides (Senokot) 17.2 mg Q12H PRN PO Moderate constipation; Start at 15:30 Bisacodyl (Dulcolax Supp) 10 mg DAILY PRN RECTAL SEVERE CONSITIPATION; Start 09/18/17 at 15:30 Lactulose (Lactulose Liq) 30 ml DAILY PRN PO SEVERE CONSITIPATION; Start 09/18 at 15:30 Dextrose/Sodium Chloride 1,000 ml @ 84 mls/hr [id number] IV Last administered on 09/20/17 04:17; Start 09/18/17 at 15:30 Pantoprazole Sodium (Protonix Inj) 40 mg BID IV PUSH Last administered on 09/19 08:50; Start 09/18/17 at 21:00; Stop 09/19/17 at 17:10; Status DC Alprazolam (Xanax) 0.5 mg Q8H PRN PO ANXIETY; Start 09/18/17 at 15:30 Fludrocortisone Acetate (Florinef) 0.2 mg DAILY PO Last administered on 08:59; Start 09/19/17 at 09:00 Phenytoin (Dilantin Liq) 100 mg BID PO Last administered on 09/20/17 08:59; Start 09/18/17 at 21:00 Topiramate (Topamax) 100 mg BID PO Last administered on 09/20/17 08:59; Start 09/18/17 at 21:00 Sodium Chloride 250 ml @ 15 mls/hr ONCE ONCE IV ; Start 09/18/17 at 17:30; Stop 09/19/17 at 10:09; Status DC Lactated Ringer's 1,000 ml @ 30 mls/hr Q24H PRN IV SEE LABEL COMMENTS; Start 09/18/17 at 20:30; Stop 09/21/17 at 20:29 Sodium Chloride 500 ml @ 30 mls/hr [id number] PRN IV SEE LABEL COMMENTS; Start at 20:30; Stop 09/21/17 at 20:29 Metoprolol Tartrate (Lopressor) 25 mg DIRECTOR OF STRATEGIC INITIATIVES PRN PO SEE LABEL COMMENTS; Start 09/18/17 at 20:30; Stop 09/21/17 at 20:29 Povidone Iodine (Betadine 5% Antisepsis Kit) 1 applic DIRECTOR OF STRATEGIC INITIATIVES PRN EACH NARE SEE LABEL COMMENTS; Start 09/18/17 at 20:30; Stop 09/21/17 at 20:29 Chlorhexidine Gluconate (Chlorhexidine 2% Cloth) 3 pack DIRECTOR OF STRATEGIC INITIATIVES PRN TOPICAL SEE LABEL COMMENTS; Start 09/18/17 at 20:30; Stop 09/21/17 at 20:29 Miscellaneous Information ALL NURSING DEPARTME... UNSCH PRN .XX SEE LABEL COMMENTS; Start 09/19/17 at 13:00; Stop 09/20/17 at 12:59 A/P Problem List: (1) PEG (percutaneous endoscopic gastrostomy) status ICD Code: Z93.1 - Gastrostomy status Status: Chronic (2) Development delay ICD Code: R62.50 - Developmental delay Status: Acute (3) CP (cerebral palsy) ICD Code: G80.9 - Cerebral palsy, unspecified Status: Acute (4) Lethargy ICD Code: R53.83 - Other fatigue Status: Acute (5) GI bleed ICD Code: K92.2 - Gastrointestinal hemorrhage, unspecified Status: Acute Assessment and Plan Upper GI bleeding status post EGD and cautery please see report Cerebral palsy chronic stable Dysphagia with chronic PEG tube stable tolerating tube feeds so far Tachycardia improved Anemia remained stable at this time Chronic.developmental delay unchanged Seizures resume home medications Contractures continue physical therapy and occupational therapy as needed Discharge Planning Hopefully home tomorrow if tolerating tube feeds Problem Qualifiers (1) GI bleed: Qualified Codes: K29.71 - Gastritis, unspecified, with bleeding Shalom Tejada DO Sep 20, 2017 12:02
[2017-09-20] MEDS ORDERED: PILL SPLITTER OTHER PRN (12:15)
[2017-09-20] MEDS ORDERED: PROTPAK PEG (12:52)
--- NOTE | 2017-09-20 12:57 | HHI.DS ---
Discharge Summary Admission Date Sep 18, 2017 at 12:13 Discharge Date: Sep 20, 2017 Admitting Diagnosis GI bleed (1) PEG (percutaneous endoscopic gastrostomy) status ICD Code: Z93.1 - Gastrostomy status Diagnosis: Principal Status: Chronic (2) Development delay ICD Code: R62.50 - Developmental delay Diagnosis: Secondary Status: Acute (3) CP (cerebral palsy) ICD Code: G80.9 - Cerebral palsy, unspecified Diagnosis: Secondary Status: Acute (4) Lethargy ICD Code: R53.83 - Other fatigue Diagnosis: Secondary Status: Acute (5) GI bleed ICD Code: K92.2 - Gastrointestinal hemorrhage, unspecified Diagnosis: Principal Status: Acute Procedures EGD PROCEDURE REPORT EXAM DATE: 09/19/2017 PATIENT NAME: Remigio Thakur MR #: [id number] BIRTHDATE: 1980 ATTENDING: Shyanne Scott MD ORDER #: [id number] LICENSED BONDSMAN: Suzanna Matta RN STATUS: inpatient INDICATIONS: The patient is a 37 yr old male here for an EGD due to hematemesis PROCEDURE PERFORMED: EGD with Endoclip Application MEDICATIONS: None and Per Anesthesia. TOPICAL ANESTHETIC: none CONSENT: The patient understands the risks and benefits of the procedure and understands that these risks include, but are not limited to: sedation, allergic reaction, infection, perforation and/or bleeding. Alternative means of evaluation and treatment include, among others: physical exam, x-rays, and/or surgical intervention. The patient elects to proceed with this endoscopic procedure. medical equipment was checked for proper function. Hand hygiene and appropriate measures for infection prevention was taken. After the risks, benefits and alternatives of the procedure were thoroughly explained, Informed consent was verified, confirmed and timeout was successfully executed by the treatment team. The patient was anesthetized with topical anesthesia and the Pentax [id number] endoscope was introduced through the mouth and advanced to the pylorus. Retroflexion was performed and was normal The gastroscope was then slowly withdrawn and removed. ESOPHAGUS: The esophagus was otherwise normal. STOMACH: Multiple large scaring was seen in the gastric fundus and gastric body. A medium sized non-bleeding and round ulcer with a pigmented spot was found on the lesser curvature of the stomach. Complete hemostasis was achieved by placing a single Cook instinct hemoclip on the bleeding site(s). ADVERSE EVENTS: There were no complications. IMPRESSIONS: 1. The esophagus was otherwise normal 2. Scaring was seen in the gastric fundus and gastric body 3. Medium sized ulcer was found on the lesser curvature of the stomach; Complete hemostasis was achieved by placing a single hemoclip on the bleeding site(s) 4. Retroflexion was performed and was normal RECOMMENDATIONS: Continue PPI PATIENT CONDITION: stable DISPOSITION: Observation REPEAT EXAM: NONE Brief History - From Admission 37 y male RECENT DC S/P EGD. COFFEE GROUND EMESIS PER MOTHER, BROUGHT PT INTO [facility]. PT TRANSFUSED. SEEN BY GI AND HAD EGD. SCOPED AGAIN. PT APHASIC AND HISTORY FROM RECORDS OTHERWISE. 12- we have been asked to assume care from Dr. St Patient had EGD yesterday results available in the chart Remains on Protonix SWITCH TO PO AND DC TO HOME CBC/BMP: 09/19/17 1215 09/20/17 0611 Significant Findings Laboratory Tests Test 09/18/17 10:05 09/18/17 16:30 09/19/17 12:15 09/20/17 06:11 White Blood Count 14.8 TH/MM3 (4.0-11.0) Red Blood Count 2.78 MIL/MM3 (4.50-5.90) Hemoglobin 8.2 GM/DL (13.0-17.0) 6.7 GM/DL (13.0-17.0) 11.5 GM/DL (13.0-17.0) Hematocrit 23.4 % (39.0-51.0) 35.4 % (39.0-51.0) Neutrophils (%) (Auto) 74.3 % (16.0-70.0) Neutrophils # (Auto) 10.9 TH/MM3 (1.8-7.7) Neutrophils % (Manual) 74 % (16-70) Neutrophils # (Manual) 11.1 TH/MM3 (1.8-7.7) Nucleated Red Blood Cells 2 /100 WBC (0-0) Polychromasia 3.3 % (0.0-1.9) Activated Partial Thromboplast Time 21.1 SEC (24.3-30.1) Blood Urea Nitrogen 23 MG/DL (7-18) Random Glucose 73 MG/DL (74-106) Calcium Level 8.0 MG/DL (8.5-10.1) 7.7 MG/DL (8.5-10.1) Chloride Level 110 MEQ/L (98-107) 113 MEQ/L (98-107) Creatinine 0.56 MG/DL (0.60-1.30) Albumin 2.6 GM/DL (3.4-5.0) Imaging Last Impressions Chest X-Ray 09/18/17 0257 Signed Impressions: Service Date/Time: Monday, September 18, 2017 10:32 - CONCLUSION: Lungs are clear. Stable volume loss due to the scoliosis. No focal infiltrates seen. Devin Hassan MD PE at Discharge GENERAL: Patient appears younger than stated age remains nonverbal which is chronic and is quite contracted from his cerebral palsy SKIN: Warm and dry. HEAD: Atraumatic. Normocephalic. EYES: Pupils equal and round. No scleral icterus. No injection or drainage. ENT: No nasal bleeding or discharge. Mucous membranes pink and moist. NECK: Trachea midline. No JVD. CARDIOVASCULAR: Regular rate and rhythm. S1 and S2 no S3 or S4 RESPIRATORY: No accessory muscle use. Clear to auscultation. Breath sounds equal bilaterally. GASTROINTESTINAL: Abdomen soft, non-tender, nondistended. Hepatic and splenic margins not palpable. PEG tube in place MUSCULOSKELETAL: Extremities without clubbing, cyanosis, or edema. Has chronic contractures and diminutive size and chronic cerebral palsy appearance NEUROLOGICAL: Awake and alert. Nonverbal No obvious cranial nerve deficits. Appears to be able to move everything. follows no commands. nonverbal at this time PSYCHIATRIC: INAppropriate mood and affect; insight and judgment ABnormal. Hospital Course 37 y male RECENT DC S/P EGD. COFFEE GROUND EMESIS PER MOTHER, BROUGHT PT INTO [facility]. PT TRANSFUSED. SEEN BY GI AND HAD EGD. SCOPED AGAIN. PT APHASIC AND HISTORY FROM RECORDS OTHERWISE. 12-21 we have been asked to assume care from Dr. St Patient had EGD yesterday results available in the chart Remains on Protonix SWITCH TO PO AND DC TO HOME Pt Condition on Discharge: Good Discharge Disposition: Discharge Home Discharge Time: > 30 minutes Discharge Instructions DIET: Follow Instructions for: On Tube Feeding Activities you can perform: Weight Bearing as Loki Follow up Referrals: Gastroenterology - 2 Weeks with Shyanne Scott MD PCP Follow-up - [address] MD New Medications: Pantoprazole Liq (Protonix Liq) 40 Mg Pkt 40 MG PEG BID for Reflux for 30 Days, #60 PKT 0 Refills Continued Medications: Alprazolam (Xanax) 0.5 Mg Tab 0.5 MG PO Q8H PRN for ANXIETY, TAB 0 Refills Fludrocortisone (Fludrocortisone) 0.1 Mg Tab 0.2 MG PO DAILY, #30 TAB 0 Refills Phenytoin (Phenytoin) 100 Mg/4 Ml Oral.susp 100 MG PO BID Topiramate (Topamax) 100 Mg Tab 100 MG PO BID for Control Seizures, #60 TAB 0 Refills Trazodone (Trazodone) 50 Mg Tab 25 MG PO PRN PRN for Control Depression, #90 TAB 0 Refills Shalom Tejada DO Sep 20, 2017 12:57
[2017-09-20] MEDS ORDERED: traZODone HCL 50 MG TAB PO SCH (13:00)
== END 2017-09-20 19:07 | disposition home or self-care (01) ==
LOC: NEPC 08:56 → INTOOBSV 12:13 → NEDA 12:13 → N07A 18:05
PROVIDERS: ADMIT Family Medicine; ATTEND Family Medicine
DX: Z43.1 Encounter for attention to gastrostomy (principal); K92.2 Gastrointestinal hemorrhage, unspecified; K29.71 Gastritis, unspecified, with bleeding; D64.9 Anemia, unspecified; R00.0 Tachycardia, unspecified; R94.31 Abnormal electrocardiogram [ECG] [EKG]; D72.829 Elevated white blood cell count, unspecified; R13.10 Dysphagia, unspecified; R52 Pain, unspecified; R47.01 Aphasia; R53.83 Other fatigue; R00.1 Bradycardia, unspecified; R62.50 Unspecified lack of expected normal physiological development in childhood; G80.9 Cerebral palsy, unspecified; I42.9 Cardiomyopathy, unspecified; M41.9 Scoliosis, unspecified; R56.9 Unspecified convulsions
CPT/HCPCS: 00740; 36430; 43255; 71010; 80048; 80053; 85007; 85014; 85018; 85027; 85610; 85730; 86850; 86900; 86901; 86920; 93005; 96361; 96365; 96366; 96368; 99291; C9113; G0378; J0330; J1100; J2405; J7030; P9016

== ENCOUNTER 2018-04-15 06:23 | Inpatient (IN) ==
[2018-04-15] MEDS ORDERED: Sodium Chlor 0.9% Inj 500 ML IV.SIG ONE (07:19)
--- NOTE | 2018-04-15 07:25 | ED ---
HPI General Chief complaint: Respiratory Symptoms Stated complaint: diff breathing Time Seen by Provider: 04/15/18 07:09 History of Present Illness HPI narrative: Patient has cerebral palsy and is not unit of. History is per mother. Patient started coughing up phlegm and had difficulty breathing on yesterday. He does have a history of pneumonia but the last episode being in October. Mom states that this seems like pneumonia again. She gave him chest congestion-Mucus Relief medication twice on yesterday and that did not help. She denies fever, recent travel, vomiting, but reports cough and no bowel movement since Sunday. States that she gave him a glycerin suppository last night but he was not able to move his bowels. She gave him an enema on last and he did move his bowels. Related Data Home Medications Medication Instructions Recorded Confirmed metoclopramide HCl [Reglan] 5 mg PO TID 04/15/18 04/15/18 phenytoin sodium extended 100 mg PO BID 04/15/18 04/15/18 [Dilantin Extended] topiramate [Topamax] 1 mg/kg PO BID 04/15/18 04/15/18 trazodone 25 mg PO HS 04/15/18 04/15/18 Allergies Allergy/AdvReac Type Severity Reaction Status Date / Time No Known Allergies Allergy Verified 04/15/18 06:30 Review of Systems ROS Unobtainable unobtainable due to mental condition [facility] Medical History Medical History Seizures (Acute) Cerebral palsy (Acute) Pneumonia (Acute) Social History Social History Substance History: No History of Abuse Second Hand Smoke Exposure: No Smoking Status: Never smoker How Often Do You Have a Drink Containing Alcohol: Never Recent Travel in [facility] within the Last 8 Weeks: No Recent Out of Country Travel within the Last 8 Weeks: No Immunization History Tetanus Immunization: Unsure Hx Influenza Vaccine This Season: No Exam Narrative Exam Narrative: GENERAL: No acute distress. SKIN: Focused skin assessment warm/dry. HEAD: Atraumatic. Normocephalic. EYES: Pupils equal and round. No scleral icterus. No injection or drainage. ENT: No nasal bleeding or discharge. Mucous membranes pink and moist. NECK: Trachea midline. No JVD. CARDIOVASCULAR: Regular rate and rhythm. No murmur appreciated. RESPIRATORY: No accessory muscle use. Coarse breath sounds bilaterally. GASTROINTESTINAL: Abdomen firm, GJ tube in place. Rectal: guaiac is trace positive, stool yellowish, no visible blood MUSCULOSKELETAL: Positive for contractures in bilateral upper and lower extremities. NEUROLOGICAL: Awake and alert. PSYCHIATRIC: Unable to assess secondary to cerebral palsy. Course Initial Documented Vital Signs Temperature 98.4 F 04/15/18 06:27 Pulse Rate 112 H 04/15/18 06:27 Respiratory Rate 28 H 04/15/18 06:27 Blood Pressure 121/59 L 04/15/18 06:27 Pulse Oximetry 94 L 04/15/18 06:27 Last Documented Vital Signs Temperature 98.4 F 04/15/18 06:27 Pulse Rate 99 H 04/15/18 10:30 Respiratory Rate 30 H 04/15/18 06:30 Blood Pressure 97/69 L 04/15/18 06:30 Pulse Oximetry 96 04/15/18 10:30 Medical Decision Making MDM Narrative Medical decision making narrative: Patient presents to the emergency department secondary to coughing up phlegm and difficulty in breathing and constipation. Patient placed on a cardiac rn, continuous pulse ox, and IV access obtained. Labs, chest x-ray, EKG ordered. Upon my assessment patient seemed to be vomiting (coffee ground emesis) and he was suctioned. Given 5 mg IV Compazine and 500 cc IV normal saline. Reviewing the EMR, patient had upper GIB 2/2 bleeding ulcer last year. Will give 40mg IV protonix. CBC wnl, BUN and alk phos increased. Abdominal XR CONCLUSION:Probable ileus withsignificant stool throughout the colon and part of the dilatation of loops of bowel could be due to fecal impaction.CXR CONCLUSION: Left lung perihilar consolidation extending to the left lung base may represent pneumonia. Patient admitted and given 1gram IV rocephin and 500mg zithromax via G-J tube. . Differential Diagnosis Differential Diagnosis: Aspiration pneumonia, viral illness, constipation, bowel obstruction, bacterial pneumonia, sepsis Lab Data Result diagrams: 04/15/18 09:25 04/15/18 09:25 Lab Results 04/15/18 04/15/18 04/15/18 Range/Units 09:25 09:25 09:25 WBC 10.7 (4.0-11.0) th/mm3 RBC 5.79 (4.50-5.90) mil/mm3 Hgb 14.5 (13.0-17.0) gm/dL Hct 44.0 (39.0-51.0) % MCV 76.0 L (80.0-100.0) fL MCH 25.0 L (27.0-34.0) pg MCHC 32.9 (32.0-36.0) % RDW 22.0 H (11.6-17.2) % Plt Count 258 (150-450) th/mm3 MPV 8.8 (7.0-11.0) fL Neut % (Auto) 76.6 H (16.0-70.0) % Lymph % (Auto) 17.6 (9.0-44.0) % Swisher % (Auto) 5.5 (0.0-8.0) % Eos % (Auto) 0.2 (0.0-4.0) % Baso % (Auto) 0.1 (0.0-2.0) % Neut # (Auto) 8.2 H (1.8-7.7) th/mm3 Lymph # (Auto) 1.9 (1.0-4.8) th/mm3 Swisher # (Auto) 0.6 (0.0-0.9) th/mm3 Eos # (Auto) 0.0 (0.0-0.4) th/mm3 Baso # (Auto) 0.0 (0.0-0.2) th/mm3 WBC Differential . Differential Comment Auto diff final Sodium 138 (136-145) meq/L Potassium 3.6 (3.5-5.1) meq/L Chloride 103 (98-107) meq/L Carbon Dioxide 24.8 (21.0-32.0) meq/L Anion Gap 10 (5-15) meq/L BUN 22 H (7-18) mg/dL Creatinine 0.88 (0.60-1.30) mg/dL Estimated GFR Greater than 89 (>89) mL/min Random Glucose 86 (74-106) mg/dL Lactic Acid 1.4 (0.4-2.0) mmol/L Calcium 9.5 (8.5-10.1) mg/dL Magnesium 2.1 (1.5-2.5) mg/dL Total Bilirubin 0.3 (0.2-1.0) mg/dL AST 31 (15-37) U/L ALT 49 (12-78) U/L Alkaline Phosphatase 141 H (45-117) U/L Total Protein 9.7 H (6.4-8.2) g/dL Albumin 3.4 (3.4-5.0) g/dL Imaging Data Radiologist's impression: Chest X-Ray 04/15/18 06:44 CONCLUSION: Left lung perihilar consolidation extending to the left lung base may represent pneumonia. Abdomen X-Ray 04/15/18 07:20 CONCLUSION: Probable ileus with significant stool throughout the colon and part of the dilatation of loops of bowel could be due to fecal impaction. ECG Data EKG Prior to Arrival: No Attestation: I personally reviewed and interpreted this ECG as follows: (Sinus tachycardia 101, right axis deviation, T-wave inversion V3, V4, slightly in V5, normal intervals) Discharge Plan Discharge Disposition Patient Disposition: 30 Still Patient Discharge Condition Condition: Stable Discharge Details Diagnosis: Pneumonia, Constipation Physicians Team ED Provider: Neris Lacy Primary Care Provider: Andrew St Attending Provider: Dee Momin Discharge Interventions Interventions: Vital Signs Last Done: 04/15/18 10:30 Status ED Status: Admitted Patient
[2018-04-15] MEDS ORDERED: Pantoprazole Inj 40 MG Vial IV.PUSH ONE (08:23)
--- NOTE | 2018-04-15 09:42 | XR ---
EXAM DATE: 04/15/2018 9:33 AM EDT AGE/SEX: 37 years / Male INDICATIONS: Constipation. CLINICAL DATA: This is the patient's initial encounter. Patient reports that signs and symptoms have been present for 3 days and indicates a pain score of Nonresponsive. MEDICAL/SURGICAL HISTORY: . Cerebral palsy. None. [place] [facility] [place]. . FINDINGS: There is significant amount of stool throughout the colon particularly transverse colon. There is di latation of loops of large and small bowel most likely ileus could partially be due to obstruction fr om stool. Slight left lung base atelectasis and/or infiltrate is seen. Chronic deformity of hip join ts bilaterally are again seen chronic in nature not changed and the scoliosis convexity towards the r ight. CONCLUSION: Probable ileus with significant stool throughout the colon and part of the dilatation of loops of bow el could be due to fecal impaction. Electronically signed by: Manohar Sigala MD 04/15/2018 9:41 AM EDT
--- NOTE | 2018-04-15 09:44 | XR ---
EXAM DATE: 04/15/2018 9:27 AM EDT AGE/SEX: 37 years / Male INDICATIONS: . Shortness of breath. CLINICAL DATA: This is the patient's initial encounter. Patient reports that signs and symptoms have been present for 2 days and indicates a pain score of Nonresponsive. MEDICAL/SURGICAL HISTORY: . Cerebral palsy. None. COMPAR[place]: [facility] [place] 09/[place]. . FINDINGS: Slight left lung base atelectasis and/or infiltrate is seen with slight to moderate perihilar consoli dation on the left. . There is extensive stool throughout the colon discussed on the patient's abdomi nal radiograph. Heart and mediastinum are stable not changed. CONCLUSION: Left lung perihilar consolidation extending to the left lung base may represent pneumonia. Electronically signed by: Manohar Sigala MD 04/15/2018 9:42 AM EDT
[2018-04-15 09:52] LABS: Baso % (Auto) 0.1 % (0.0-2.0); Eos % (Auto) 0.2 % (0.0-4.0); Hemoglobin 14.5 gm/dL (13.0-17.0); Lymph # (Auto) 1.9 th/mm3 (1.0-4.8); Lymph % (Auto) 17.6 % (9.0-44.0); Mean Corpuscular HGB Conc 32.9 % (32.0-36.0); Mean Platelet Volume 8.8 fL (7.0-11.0); Mono # (Auto) 0.6 th/mm3 (0.0-0.9); Mono % (Auto) 5.5 % (0.0-8.0); Neut # (Auto) 8.2 th/mm3 (1.8-7.7); Neut % (Auto) 76.6 % (16.0-70.0); Platelet Count 258 th/mm3 (150-450); Red Blood Count 5.79 mil/mm3 (4.50-5.90); White Blood Count 10.7 th/mm3 (4.0-11.0)
[2018-04-15] MEDS ORDERED: Azithromycin 250 MG Tablet PO ONE (10:07)
[2018-04-15 10:08] LABS: Albumin 3.4 g/dL (3.4-5.0); Anion Gap 10 meq/L (5-15); Aspartate Aminotransferase 31 U/L (15-37); Blood Urea Nitrogen 22 mg/dL (7-18); Calcium 9.5 mg/dL (8.5-10.1); Carbon Dioxide 24.8 meq/L (21.0-32.0); Chloride 103 meq/L (98-107); Glomerular Filtration Rate Greater Than 89 mL/min (>89); Glucose,Random 86 mg/dL (74-106); Magnesium 2.1 mg/dL (1.5-2.5); Potassium 3.6 meq/L (3.5-5.1); Sodium 138 meq/L (136-145)
[2018-04-15 10:12] LABS: Alanine Aminotransferase 49 U/L (12-78); Alkaline Phosphatase 141 U/L (45-117); Total Protein 9.7 g/dL (6.4-8.2)
--- NOTE | 2018-04-15 11:09 | P.HPFP ---
History of Present Illness Primary Care Physician: Andrew St MD <Rio GrandeDee ding M - 04/16/18 14:02> Andrew St MD <Robledo,Tai O - 04/15/18 11:09> History of Present Illness: This patient is a non-verbal, wheel chair bound, -Israeli 37-year-old male with a past medical history of cerebral palsy , seizures, prior GI ulcer in 2017, prior pneumonia requiring intubation for 2 weeks. Patient's PCP is Dr. Andrew St with last exam on March 13, 2018. Patient presents to the ED with a 3 day history of productive cough with white mucus and a 3 day history of constipation. Coughing began on Sunday per mother and was productive with white mucus. On Sunday mother reports subjective warmth but denies any vomiting. Mom tried Mucinex that she believes helped his breathing a little but his coughing has neither worsened nor bettered. His cough has no aggravating or alleviating factors. Mother states that coughing comes and goes about 4 times a day and each coughing episode lasts about 2 minutes. He has experienced some shortness of breath that was slightly eased by the Mucinex. She also reports difficulty breathing since Sunday. This morning the mother observed heavy and fast breathing and sought medical attention for the patient. Per mother subjective fevers but no chills. Of note per mother patient is current on Pneumovax. Per mother patient has also been constipated since the end of last week. On she tried an enema and believes she was able to get some stool out but not very much. On Sunday she tried a suppository with no resolve. He is currently on MiraLAX at home and in the past enemas have worked for prior constipation. In the ED the patient was found to have positive Hemoccult in stool and in emesis. Mother denies any blood in the stool or in sputum. Patient has a G J-tube in place that was replaced approximately a month ago. He is currently on the Jevity formula at a 60 mL rate. Patient is followed by Dr. Tenorio at [facility]. Of note: Patient had an EGD for hematemesis on May 01, 2017. Biopsy revealed acute ulcerative and chronic esophagitis, fungal hyphal and yeast forms consistent with Francoise. Patient lives with mother, stepfather and sister and is taken care of by a home nurse. <RobledoTai Gregory Waldrop 04/15/18 21:57> - Diagnosis (1) Pneumonia (2) Constipation (3) Cerebral palsy (4) Nutrition, metabolism, and development symptoms <Dee Momin 04/16/18 14:02> (1) Pneumonia (2) Constipation (3) Cerebral palsy (4) Nutrition, metabolism, and development symptoms <Tai Robledo 04/15/18 21:58> Inpatient Certification: I certify that the inpatient services were ordered in accordance with Medicare regulations governing the order. This includes certification that hospital inpatient services are reasonable and necessary and in the case of services not specified as inpatient-only under 42 CFR 419.22(n), that they are appropriately provided as inpatient services in accordance to with the 2-midnight benchmark under 43 CFR 412.3(e) <Dee Momin 04/16/18 14:02> I certify that the inpatient services were ordered in accordance with Medicare regulations governing the order. This includes certification that hospital inpatient services are reasonable and necessary and in the case of services not specified as inpatient-only under 42 CFR 419.22(n), that they are appropriately provided as inpatient services in accordance to with the 2-midnight benchmark under 43 CFR 412.3(e) <Tai Rboledo 04/15/18 11:09> Review of Systems Review of systems was reported by patient's mother at bedside <Tai Robledo 04/15/18 12:24> Constitutional: Reports fever(s), Denies chills, Denies daytime sleepiness, Denies excessive sweating, Denies night sweats, Denies weight loss <Tai Robledo 04/15/18 12:24> Cardiovascular: Reports shortness of breath, Denies chest pain, Denies fast heart rate, Denies generalized swelling <Tai Robledo 04/15/18 12:24> PMFSH - History History Provided By: Family Member <Tai Robledo 04/15/18 11:09> - Medical History Medical History: Medical History (Last Updated 04/15/18 @ 06:45 by Ladi Yu RN) Seizures (Acute) Cerebral palsy (Acute) Pneumonia <Dee Momin 04/16/18 14:02> Medical History (Last Updated 04/15/18 @ 06:45 by Ladi Yu RN) Seizures (Acute) Cerebral palsy (Acute) Pneumonia <Tai Robledo Gregory 04/15/18 11:09> - Tobacco History Second Hand Smoke Exposure: No <Tai Robledo Gregory 04/15/18 11:09> Smoking Status: Never smoker <VenkatTai Jenkins 04/15/18 11:09> - Alcohol History How Often Do You Have a Drink Containing Alcohol: Never <Tai Robledo Gregory 04/15 11:09> - Substance Use History Substance History: No History of Abuse <VenkatTai Jenkins 04/15/18 11:09> - Travel History Recent Travel in the [facility] Within the Last 8 Weeks: No <VenkatTai Jenkins 11:09> Recent Travel Out of the Country Within the Last 8 Weeks: No <VenkatTai Jenkins 04/15/18 11:09> - Immunization History Tetanus Immunization: Unsure <RobledoTai 04/15/18 11:09> Hx Influenza Vaccine This Season: Yes (Per mother patient is up-to-date on Pneumovax) <VenkatTai Jenkins 04/15/18 21:57> Medications and Allergies Allergies Allergy/AdvReac Type Severity Reaction Status Date / Time No Known Allergies Allergy Verified 04/15/18 06:30 <Dee Momin - 04/16/18 14:02> Home Medications Medication Instructions Recorded Confirmed Type metoclopramide HCl [Reglan] 5 mg PO TID 04/15/18 04/15/18 History phenytoin sodium extended 100 mg PO BID 04/15/18 04/15/18 History [Dilantin Extended] topiramate [Topamax] 1 mg/kg PO BID 04/15/18 04/15/18 History trazodone 25 mg PO HS 04/15/18 04/15/18 History <Dee Momin - 04/16/18 14:02> Active Medications: Active Medications Acetaminophen (Tylenol) 650 mg PO Q4H PRN PRN Reason: Temp > 100.4 Al Hydroxide/Mg Hydroxide (Milk Of Magnesia Liq) 30 ml PO Q12H PRN PRN Reason: Mild Constipation Bisacodyl (Dulcolax Supp) 10 mg RECTAL DAILY PRN PRN Reason: SEVERE CONSITIPATION Chlorhexidine Gluconate (Chlorhexidine 2% Cloth) 3 pack TOPICAL NARRATIVE WRITER [facility] Stop: 04/19/18 09:35 Ceftriaxone Sodium 1,000 mg/ (Sodium Chloride) 100 mls @ 200 mls/hr IV.SIG Q24H [facility] Last Admin: 04/16/18 10:23 Dose: 200 mls/hr Azithromycin 500 mg/ Sodium (Chloride) 250 mls @ 250 mls/hr IV.SIG Q24H [facility] Last Admin: 04/16/18 10:22 Dose: 250 mls/hr Dextrose/Sodium Chloride (D5w/1/2 Ns Inj) 1,000 mls @ 95 mls/hr IV.CONT .[id number] [facility] Last Infusion: 04/16/18 12:59 Dose: 95 mls/hr Lactated Ringer's (Lr 1000 Ml Inj) 1,000 mls @ 30 mls/hr IV.SIG .Q24H [facility] Stop: 04/19/18 09:35 Last Admin: 04/16/18 10:32 Dose: Not Given Sodium Chloride (Ns Inj) 500 mls @ 30 mls/hr IV.SIG .Q10H [facility] Stop: 04/19/18 09:35 Lactulose (Lactulose Liq) 30 ml PO DAILY PRN PRN Reason: SEVERE CONSITIPATION Metoprolol Tartrate (Lopressor) 25 mg PO NARRATIVE WRITER [facility] Stop: 04/19/18 09:35 Last Admin: 04/16/18 10:23 Dose: 25 mg Pantoprazole Sodium (Protonix Inj) 40 mg IV.PUSH Q12H [facility] Last Admin: 04/15/18 23:41 Dose: 40 mg Povidone Iodine (Betadine 5% Antisepsis Kit) 1 applicatio EACH NARE NARRATIVE WRITER [facility] Stop: 04/19/18 09:35 Senna/Docusate Sodium (Violetta-Colace) 1 tab PO BID [facility] Last Admin: 04/16/18 10:21 Dose: Not Given Sennosides (Senokot) 17.2 mg PO Q12H PRN PRN Reason: Moderate Constipation <Dee Momin - 04/16/18 14:02> Exam Vital signs: Vital Signs 04/15/18 16:00 04/15/18 17:36 04/15/18 20:00 Temperature 97.0 F L Pulse Rate 94 H 104 H 98 H Respiratory Rate 16 20 16 Blood Pressure 132/77 116/73 106/68 Pulse Oximetry 95 97 98 04/16/18 00:00 04/16/18 08:00 Temperature 98.5 F 97.9 F Pulse Rate 112 H 105 H Respiratory Rate 16 20 Blood Pressure 109/74 102/67 Pulse Oximetry 98 Intake & Output 04/15/18 04/16/18 04/16/18 18:59 06:59 18:59 Intake Total 100 / 100 Balance 100 / 100 Weight 54.431 kg Intake: IV 100 / 100 D5W/1/2 NS Inj 1,000 ML @ 95 100 / 100 mls/hr IV.CONT .[id number] [facility] Rx# :[id number] Other: # Voids 1 Date of Last Bowel Movement 04/15/18 04/16/18 # Bowel Movements 2 Weight On Admission 54.431 kg <Dee Momin - 04/16/18 14:02> Vital Signs 04/15/18 06:27 04/15/18 06:30 04/15/18 10:30 Temperature 98.4 F Pulse Rate 112 H 108 H 99 H Respiratory Rate 28 H 30 H Blood Pressure 121/59 L 97/69 L Pulse Oximetry 94 L 98 96 Intake & Output 04/14/18 04/15/18 04/15/18 18:59 06:59 18:59 Weight 54.431 kg <Tai Robledo - 04/15/18 11:09> - Constitutional no acute distress, thin, cachectic <Tai Robledo 04/15/18 21:57> Comments: Patient suffers from cerebral palsy was nonverbal <Tai Robledo 04/15/18 21:57> - Routine HEENT Exam Head: Present: normocephalic, atraumatic <Tai Robledo 04/15/18 21:57> Eye: Present: PERRL. Absent: conjunctival icterus, conjunctivae pink, periorbital ecchymosis, periorbital swelling, periorbital tenderness <Tai Robledo 04/15/18 21:57> - Routine Neck Exam Present: lymphadenopathy <Tai Robledo 04/15/18 21:57> Comments: Bilateral lymphadenopathy submandibular <Tai Robledo 04/15/18 21:57> - Routine Respiratory Exam Present: rhonchi. Absent: accessory muscle use, decreased breath sounds, CTA bilaterally, prolonged expiratory phase, rales, respiratory distress, stridor, wheezes, crackles <Tai Robledo 04/15/18 21:57> Comments: Bilateral rhonchus breath sounds in all lung lopez <Tai Robledo 04/15/18 21:57> - Routine Cardiovascular Exam Present: RRR, S1, S2. Absent: murmur, gallop <Tai Robledo 04/15/18 21:57> - Routine Abdominal Exam Present: soft, normoactive bowel sounds. Absent: tenderness, distended, rebound <Tai Robledo 04/15/18 21:57> Comments: Patient has a GJ tube in place with no signs of infection or erythema around placement <Tai Robledo 04/15/18 21:57> - Routine Extremities Exam Present: pulses intact. Absent: calf tenderness, tenderness, joint swelling < Tai Robledo 04/15/18 21:57> Comments: Both legs flexed with significant muscle atrophy bilaterally <Tai Robledo 04/15/18 21:57> - Routine Skin Exam Present: intact. Absent: cyanosis, erythema <Tai Robledo 04/15/18 21:57> - Routine Neurological Exam Present: motor deficit. Absent: alert, oriented X3, CN II-XII intact, normal speech <Tai Robledo 04/15/18 21:57> Both upper and lower extremities in flexed position bilaterally with significant muscle atrophy. Motor and sensory function could not be assessed. Per mother patient is neurologically at baseline. <Tai Robledo 04/15/18 21:57> Results - Labs Result diagrams: 04/16/18 10:45 04/15/18 09:25 <Dee Momin - 04/16/18 14:02> Abnormal lab results 04/16/18 Range/Units 10:45 Hgb 12.2 L D (13.0-17.0) gm/dL Hct 37.6 L (39.0-51.0) % MCV 76.6 L (80.0-100.0) fL MCH 24.9 L (27.0-34.0) pg RDW 22.2 H (11.6-17.2) % Short CBC 04/16/18 Range/Units 10:45 WBC 8.1 (4.0-11.0) th/mm3 Hgb 12.2 L D (13.0-17.0) gm/dL Hct 37.6 L (39.0-51.0) % Plt Count 228 (150-450) th/mm3 <Dee Momin M - 04/16/18 14:02> Abnormal lab results 04/15/18 04/15/18 Range/Units 09:25 09:25 MCV 76.0 L (80.0-100.0) fL MCH 25.0 L (27.0-34.0) pg RDW 22.0 H (11.6-17.2) % Neut % (Auto) 76.6 H (16.0-70.0) % Neut # (Auto) 8.2 H (1.8-7.7) th/mm3 BUN 22 H (7-18) mg/dL Alkaline Phosphatase 141 H (45-117) U/L Total Protein 9.7 H (6.4-8.2) g/dL Short CBC 04/15/18 Range/Units 09:25 WBC 10.7 (4.0-11.0) th/mm3 Hgb 14.5 (13.0-17.0) gm/dL Hct 44.0 (39.0-51.0) % Plt Count 258 (150-450) th/mm3 [facility] 04/15/18 09:25 Sodium 138 Potassium 3.6 Chloride 103 Carbon Dioxide 24.8 BUN 22 H Creatinine 0.88 Calcium 9.5 Liver Function 04/15/18 Range/Units 09:25 Total Bilirubin 0.3 (0.2-1.0) mg/dL AST 31 (15-37) U/L ALT 49 (12-78) U/L Alkaline Phosphatase 141 H (45-117) U/L Albumin 3.4 (3.4-5.0) g/dL <Tai Robledo - 04/15/18 11:09> - Imaging Impressions Chest X-Ray 04/15/18 06:44 CONCLUSION: Left lung perihilar consolidation extending to the left lung base may represent pneumonia. Abdomen X-Ray 04/15/18 07:20 CONCLUSION: Probable ileus with significant stool throughout the colon and part of the dilatation of loops of bowel could be due to fecal impaction. <Tai Robledo - 04/15/18 11:09> Caprini VTE Risk Assessment Caprini VTE Risk Assessment: Moderate/High Risk (score >= 2) <Tai Robledo - 04/15/18 21:57> Caprini Risk Assessment Model: Point Value = 1 Point Value = 2 Point Value = 3 Point Value = 5 Age 41-60 Minor surgery BMI > 25 kg/m2 Swollen legs Varicose veins or History of unexplained or recurrent spontaneous Oral contraceptives or hormone replacement Sepsis (< 1 month) Serious lung disease, including pneumonia (< 1 month) Abnormal pulmonary function Acute myocardial infarction Congestive heart failure (< 1 month) History of inflammatory bowel disease Medical patient at bed rest Age 61-74 Arthroscopic surgery Major open surgery (> 45 min) Laparoscopic surgery (> 45 min) Malignancy Confined to bed (> 72 hours) Immobilizing plaster cast Central venous access Age >= 75 History of VTE Family history of VTE Factor V Leiden Prothrombin [id number] Lupus anticoagulant Anticardiolipin antibodies Elevated serum homocysteine Heparin-induced thrombocytopenia Other congenital or acquired thrombophilia Stroke (< 1 month) Elective arthroplasty Hip, pelvis, or leg fracture Acute spinal cord injury (< 1 month) <Dee Momin M - 04/16/18 14:02> Point Value = 1 Point Value = 2 Point Value = 3 Point Value = 5 Age 41-60 Minor surgery BMI > 25 kg/m2 Swollen legs Varicose veins or History of unexplained or recurrent spontaneous Oral contraceptives or hormone replacement Sepsis (< 1 month) Serious lung disease, including pneumonia (< 1 month) Abnormal pulmonary function Acute myocardial infarction Congestive heart failure (< 1 month) History of inflammatory bowel disease Medical patient at bed rest Age 61-74 Arthroscopic surgery Major open surgery (> 45 min) Laparoscopic surgery (> 45 min) Malignancy Confined to bed (> 72 hours) Immobilizing plaster cast Central venous access Age >= 75 History of VTE Family history of VTE Factor V Leiden Prothrombin [id number] Lupus anticoagulant Anticardiolipin antibodies Elevated serum homocysteine Heparin-induced thrombocytopenia Other congenital or acquired thrombophilia Stroke (< 1 month) Elective arthroplasty Hip, pelvis, or leg fracture Acute spinal cord injury (< 1 month) <Tai Robledo O - 04/15/18 11:09> Prophylaxis Regimen: Total Risk Factor Score Risk Level Prophylaxis Regimen 0-1 Low Early ambulation 2 Moderate Order ONE of the following: *Sequential Compression Device (SCD) *Heparin 5000 units SQ BID 3-4 Higher Order ONE of the following medications: *Heparin 5000 units SQ TID *Enoxaparin/Lovenox 40 mg SQ daily (WT < 150 kg, CrCl > 30 mL/min) *Enoxaparin/Lovenox 30 mg SQ daily (WT < 150 kg, CrCl > 10-29 mL/min) *Enoxaparin/Lovenox 30 mg SQ BID (WT < 150 kg, CrCl > 30 mL/min) AND/OR *Sequential Compression Device (SCD) 5 or more Highest Order ONE of the following medications: *Heparin 5000 units SQ TID (Preferred with Epidurals) *Enoxaparin/Lovenox 40 mg SQ daily (WT < 150 kg, CrCl > 30 mL/min) *Enoxaparin/Lovenox 30 mg SQ daily (WT < 150 kg, CrCl > 10-29 mL/min) *Enoxaparin/Lovenox 30 mg SQ BID (WT < 150 kg, CrCl > 30 mL/min) AND *Sequential Compression Device (SCD) <Dee Momin M - 04/16/18 14:02> Total Risk Factor Score Risk Level Prophylaxis Regimen 0-1 Low Early ambulation 2 Moderate Order ONE of the following: *Sequential Compression Device (SCD) *Heparin 5000 units SQ BID 3-4 Higher Order ONE of the following medications: *Heparin 5000 units SQ TID *Enoxaparin/Lovenox 40 mg SQ daily (WT < 150 kg, CrCl > 30 mL/min) *Enoxaparin/Lovenox 30 mg SQ daily (WT < 150 kg, CrCl > 10-29 mL/min) *Enoxaparin/Lovenox 30 mg SQ BID (WT < 150 kg, CrCl > 30 mL/min) AND/OR *Sequential Compression Device (SCD) 5 or more Highest Order ONE of the following medications: *Heparin 5000 units SQ TID (Preferred with Epidurals) *Enoxaparin/Lovenox 40 mg SQ daily (WT < 150 kg, CrCl > 30 mL/min) *Enoxaparin/Lovenox 30 mg SQ daily (WT < 150 kg, CrCl > 10-29 mL/min) *Enoxaparin/Lovenox 30 mg SQ BID (WT < 150 kg, CrCl > 30 mL/min) AND *Sequential Compression Device (SCD) <Tai Robledo - 04/15/18 11:09> Assessment and Plan - Assessment (1) Pneumonia Code(s): J18.9 - Pneumonia, unspecified organism Status: Acute (2) Constipation Code(s): K59.00 - Constipation, unspecified Status: Acute (3) Cerebral palsy Code(s): G80.9 - Cerebral palsy, unspecified Status: Acute (4) Nutrition, metabolism, and development symptoms Code(s): R63.8 - Other symptoms and signs concerning food and fluid intake Status: Acute <Dee Momin - 04/16/18 14:02> (1) Pneumonia Code(s): J18.9 - Pneumonia, unspecified organism Status: Acute Plan: This patient presents the ED with a 3 day history of productive cough with white mucus. Coughing began on Sunday per mother and has been productive throughout. This patient has a history of prior pneumonia requiring intubation and extended ICU stay which required tracheostomy. Per mother patient had difficulty breathing starting on Sunday. On presentation to the ED patient had a pulse of 112 and a respiratory rate of 28. Chest x-ray findings showed a left lung perihilar consolidation extending to the left lung base which may represent pneumonia. On physical exam patient was rhonchorous in all lung lopez bilaterally. Patient currently satting 97% on room air. Patient to be treated for community-acquired pneumonia vs pneumonia due to aspiration, unlikely due lack of oral feeding due to GJ tube in place. - Continue azithromycin - Continue ceftriaxone - Follow up with Legionella urine antigen screen - Follow CBC - Monitor vitals - Follow-up with sputum culture and Gram stain - Follow-up with blood culture (2) Constipation Code(s): K59.00 - Constipation, unspecified Status: Acute Plan: Patient with 3 day history of constipation. Per mother patient received an enema this past with minimal resolved. On Sunday his mother gave him a suppository no success. Patient takes MiraLAX at home. This patient has a JG tube in place. Last EGD on August 2017 showed a normal esophagus scarring in the gastric fundus and body, and a medium-sized ulcer was also found in the lesser curvature the stomach. Pathology from the gastric body mucosa showed mild active chronic gastritis but was negative for H pylori. In the ED patient was positive for stool Hemoccult as well as positive Hemoccult in the emesis. H\H on admission was 14.5\44. On x-ray of the abdomen showed probable ileus with significant stool throughout the colon and part of the dilation of loops of bowel could possibly due to fecal impaction. GI consult in place. Will follow GI recommendations. -EGD tomorrow -Monitor H\H -Continue Protonix -Mag citrate 1 (3) Cerebral palsy Code(s): G80.9 - Cerebral palsy, unspecified Status: Acute Plan: This patient is nonverbal wheelchair-bound 37-year-old man suffering from cerebral palsy. Patient lives with mother stepfather and sister and at this time physical therapy is not indicated. Due to motor impairment patient to be bedbound. -Fall precautions -DVT prophylaxis with SCDs due to GI bleed (4) Nutrition, metabolism, and development symptoms Code(s): R63.8 - Other symptoms and signs concerning food and fluid intake Status: Acute Plan: Fluids: Not indicated at this time Electrolytes: Replete as needed Nutrition: Tube feeding with Jevity formula at a rate of 60 mL. DVT prophylaxis: SCDs due to possible GI bleed <Tai Robledo - 04/15/18 21:58> - Attending Attestation The exam, history, and the medical decision-making described in the above note were completed with the assistance of the resident physician. I reviewed and agree with the findings presented. I attest that I had a [id number] encounter with the patient on the same day, and personally performed and documented my assessment and findings in the medical record. I saw him in the emergency department on the day of admission along with his mother. At the time I saw him his breathing was nonlabored and he appeared comfortable. <Dee Momin - 04/16/18 14:02> <Dee Momin M - Last Filed: 04/16/18 14:02> (1) Pneumonia Qualifiers: Pneumonia type: due to unspecified organism Laterality: unspecified laterality Lung location: unspecified part of lung Qualified Code(s): J18.9 - Pneumonia, unspecified organism (2) Constipation Qualifiers: Constipation type: unspecified constipation type Qualified Code(s): K59.00 - Constipation, unspecified (3) Cerebral palsy Qualifiers: Cerebral palsy type: unspecified type Qualified Code(s): G80.9 - Cerebral palsy, unspecified <Dee Momin M - Last Filed: 04/16/18 14:02> (1) Pneumonia Qualifiers: Pneumonia type: due to unspecified organism Laterality: unspecified laterality Lung location: unspecified part of lung Qualified Code(s): J18.9 - Pneumonia, unspecified organism (2) Constipation Qualifiers: Constipation type: unspecified constipation type Qualified Code(s): K59.00 - Constipation, unspecified (3) Cerebral palsy Qualifiers: Cerebral palsy type: unspecified type Qualified Code(s): G80.9 - Cerebral palsy, unspecified
[2018-04-15] MEDS ORDERED: Acetaminophen 325 MG Tablet PO PRN (11:11)
[2018-04-15] MEDS ORDERED: Bisacodyl 10 MG Supp RECTAL PRN (11:11)
[2018-04-15] MEDS ORDERED: Bisacodyl 10 MG Supp RECTAL ONE (11:45)
--- NOTE | 2018-04-15 12:29 | P.CONGI ---
History of Present Illness Consult date: 04/15/18 Consult reason: Emesis with positive Hemoccult and heme (+) stool Chief complaint: pneumonia, constipation History of Present Illness: This is a 37 yo M with PMH significant for cerebral palsy, unable to provide any history, therefore all history has been obtained through chart review and mother at bedside. She brought pt to the ER for evaluation of cough with phlegm for the past few days and she began noticing he was SOB. Our service has been consulted to evaluate pt for heme positive emesis and stool. Our service has seen pt in the past, last EGD in August 2017 --> Normal esophagus, scarring in the gastric fundus and body, medium sized ulcer was found in the lesser curvature of the stomach, complete hemostasis achieved. Pathology ( gastric body) mucosa with mild active chronic gastritis, negative for H. Pylori. Per mother pt has not had any emesis at home, states just coughing and spitting up phlegm. She does report pt has had no BM since Sunday. States normally has daily BMs, she gives him Miralax every other day as well as suppositories and enemas as needed. She last gave him an enema on with large BM afterwards, and a suppository on Sunday. Denies any noticeable hematochezia or melena. She noticed some abdominal distention and firmness that she states improved after BM. She denies pt having previous colonoscopy. Pt has GJ tube, tube feeding is Jevity, continuous at 60 mL/hr. States GJ last changed about a month ago at [facility]. <Chioma Pastor - Last Filed: 04/15/18 12:17> Review of Systems unobtainable due to mental condition <Chioma Pastor - Last Filed: 04/15/18 12:17> [facility] - History History Provided By: Family Member - Medical History Medical History: Medical History (Last Updated 04/15/18 @ 06:45 by Ladi Yu RN) Seizures (Acute) Cerebral palsy (Acute) Pneumonia - Tobacco History Second Hand Smoke Exposure: No Smoking Status: Never smoker - Alcohol History How Often Do You Have a Drink Containing Alcohol: Never - Substance Use History Substance History: No History of Abuse - Travel History Recent Travel in the USA Within the Last 8 Weeks: No Recent Travel Out of the Country Within the Last 8 Weeks: No - Immunization History Tetanus Immunization: Unsure Hx Influenza Vaccine This Season: No <Chioma Pastor - Last Filed: 04/15/18 12:17> - Medical History Medical History: Medical History (Last Updated 04/15/18 @ 06:45 by Ladi Yu RN) Seizures (Acute) Cerebral palsy (Acute) Pneumonia <David Mackay - Last Filed: 04/15/18 20:14> Medications and Allergies Active Medications: Active Medications Acetaminophen (Tylenol) 650 mg PO Q4H PRN PRN Reason: Temp > 100.4 Al Hydroxide/Mg Hydroxide (Milk Of Magnesia Liq) 30 ml PO Q12H PRN PRN Reason: Mild Constipation Bisacodyl (Dulcolax Supp) 10 mg RECTAL DAILY PRN PRN Reason: SEVERE CONSITIPATION Ceftriaxone Sodium 1,000 mg/ (Sodium Chloride) 100 mls @ 200 mls/hr IV.SIG Q24H [place] Azithromycin 500 mg/ Sodium (Chloride) 250 mls @ 250 mls/hr IV.SIG Q24H [place] Lactulose (Lactulose Liq) 30 ml PO DAILY PRN PRN Reason: SEVERE CONSITIPATION Pantoprazole Sodium (Protonix Inj) 40 mg IV.PUSH Q12H [place] Senna/Docusate Sodium (Violetta-Colace) 1 tab PO BID [place] Sennosides (Senokot) 17.2 mg PO Q12H PRN PRN Reason: Moderate Constipation <Chioma Pastor - Last Filed: 04/15/18 12:17> Active Medications: Active Medications Acetaminophen (Tylenol) 650 mg PO Q4H PRN PRN Reason: Temp > 100.4 Al Hydroxide/Mg Hydroxide (Milk Of Magnesia Liq) 30 ml PO Q12H PRN PRN Reason: Mild Constipation Bisacodyl (Dulcolax Supp) 10 mg RECTAL DAILY PRN PRN Reason: SEVERE CONSITIPATION Ceftriaxone Sodium 1,000 mg/ (Sodium Chloride) 100 mls @ 200 mls/hr IV.SIG Q24H [place] Azithromycin 500 mg/ Sodium (Chloride) 250 mls @ 250 mls/hr IV.SIG Q24H [place] Lactulose (Lactulose Liq) 30 ml PO DAILY PRN PRN Reason: SEVERE CONSITIPATION Pantoprazole Sodium (Protonix Inj) 40 mg IV.PUSH Q12H [facility] Last Admin: 04/15/18 14:06 Dose: Not Given Senna/Docusate Sodium (Violetta-Colace) 1 tab PO BID [place] Sennosides (Senokot) 17.2 mg PO Q12H PRN PRN Reason: Moderate Constipation <David Mackay - Last Filed: 04/15/18 20:14> Allergies Allergy/AdvReac Type Severity Reaction Status Date / Time No Known Allergies Allergy Verified 04/15/18 06:30 Home Medications Medication Instructions Recorded Confirmed Type metoclopramide HCl [Reglan] 5 mg PO TID 04/15/18 04/15/18 History phenytoin sodium extended 100 mg PO BID 04/15/18 04/15/18 History [Dilantin Extended] topiramate [Topamax] 1 mg/kg PO BID 04/15/18 04/15/18 History trazodone 25 mg PO HS 04/15/18 04/15/18 History Exam Vital signs: Vital Signs 04/15/18 06:27 04/15/18 06:30 04/15/18 10:30 Temperature 98.4 F Pulse Rate 112 H 108 H 99 H Respiratory Rate 28 H 30 H Blood Pressure 121/59 L 97/69 L Pulse Oximetry 94 L 98 96 Intake & Output 04/14/18 04/15/18 04/15/18 18:59 06:59 18:59 Weight 54.431 kg - Constitutional no acute distress - Routine HEENT Exam Head: Present: normocephalic, atraumatic - Routine Respiratory Exam Absent: accessory muscle use - Routine Cardiovascular Exam Present: RRR - Routine Abdominal Exam Present: soft, normoactive bowel sounds. Absent: distended, rebound, guarding, firm Comments: GJ clamped - Routine Skin Exam Present: dry, warm - Routine Neurological Exam Present: alert nonverbal <Chioma Pastor - Last Filed: 04/15/18 12:17> Vital signs: Vital Signs 04/15/18 06:27 04/15/18 06:30 04/15/18 10:30 Temperature 98.4 F Pulse Rate 112 H 108 H 99 H Respiratory Rate 28 H 30 H Blood Pressure 121/59 L 97/69 L Pulse Oximetry 94 L 98 96 04/15/18 11:00 04/15/18 16:00 04/15/18 17:36 Temperature 97.0 F L Pulse Rate 92 H 94 H 104 H Respiratory Rate 18 16 20 Blood Pressure 127/96 H 132/77 116/73 Pulse Oximetry 97 95 97 Intake & Output 04/15/18 04/15/18 04/16/18 06:59 18:59 06:59 Weight 54.431 kg 54.431 kg Other: Date of Last Bowel Movement 04/15/18 Weight On Admission 54.431 kg <David Mackay - Last Filed: 04/15/18 20:14> Results - Labs CBC & Chem 7: 04/15/18 09:25 04/15/18 09:25 Labs: Laboratory Results - last 24 hr 04/15/18 04/15/18 04/15/18 09:25 09:25 09:25 WBC 10.7 RBC 5.79 Hgb 14.5 Hct 44.0 MCV 76.0 L MCH 25.0 L MCHC 32.9 RDW 22.0 H Plt Count 258 MPV 8.8 Neut % (Auto) 76.6 H Lymph % (Auto) 17.6 Louisa % (Auto) 5.5 Eos % (Auto) 0.2 Baso % (Auto) 0.1 Neut # (Auto) 8.2 H Lymph # (Auto) 1.9 Louisa # (Auto) 0.6 Eos # (Auto) 0.0 Baso # (Auto) 0.0 WBC Differential . Differential Comment Auto diff final Sodium 138 Potassium 3.6 Chloride 103 Carbon Dioxide 24.8 Anion Gap 10 BUN 22 H Creatinine 0.88 Estimated GFR Greater than 89 Random Glucose 86 Lactic Acid 1.4 Calcium 9.5 Magnesium 2.1 Total Bilirubin 0.3 AST 31 ALT 49 Alkaline Phosphatase 141 H Total Protein 9.7 H Albumin 3.4 - Imaging Impressions Chest X-Ray 04/15/18 06:44 CONCLUSION: Left lung perihilar consolidation extending to the left lung base may represent pneumonia. Abdomen X-Ray 04/15/18 07:20 CONCLUSION: Probable ileus with significant stool throughout the colon and part of the dilatation of loops of bowel could be due to fecal impaction. <Chioma Pastor - Last Filed: 04/15/18 12:17> - Labs CBC & Chem 7: 04/15/18 09:25 04/15/18 09:25 Labs: Laboratory Results - last 24 hr 04/15/18 04/15/18 04/15/18 09:25 09:25 09:25 WBC 10.7 RBC 5.79 Hgb 14.5 Hct 44.0 MCV 76.0 L MCH 25.0 L MCHC 32.9 RDW 22.0 H Plt Count 258 MPV 8.8 Neut % (Auto) 76.6 H Lymph % (Auto) 17.6 Louisa % (Auto) 5.5 Eos % (Auto) 0.2 Baso % (Auto) 0.1 Neut # (Auto) 8.2 H Lymph # (Auto) 1.9 Louisa # (Auto) 0.6 Eos # (Auto) 0.0 Baso # (Auto) 0.0 WBC Differential . Differential Comment Auto diff final Sodium 138 Potassium 3.6 Chloride 103 Carbon Dioxide 24.8 Anion Gap 10 BUN 22 H Creatinine 0.88 Estimated GFR Greater than 89 Random Glucose 86 Lactic Acid 1.4 Calcium 9.5 Magnesium 2.1 Total Bilirubin 0.3 AST 31 ALT 49 Alkaline Phosphatase 141 H Total Protein 9.7 H Albumin 3.4 - Imaging Impressions Chest X-Ray 04/15/18 06:44 CONCLUSION: Left lung perihilar consolidation extending to the left lung base may represent pneumonia. Abdomen X-Ray 04/15/18 07:20 CONCLUSION: Probable ileus with significant stool throughout the colon and part of the dilatation of loops of bowel could be due to fecal impaction. <David Mackay E - Last Filed: 04/15/18 20:14> Assessment and Plan - Plan Assessment: - Heme positive stool and emesis with history of gastric ulcer H/H currently stable Pt with CP, unable to provide history, history obtained through chart review and mother at bedside. She reports no emesis at home. His abdomen seemed distended and firm on S/P enema with large BM and suppository on Sunday which she states seemed to improve distention. No BM since Sunday. She normally gives him Miralax every other day and suppositories and enemas as needed. No previous colonoscopy Last EGD (Aug 2017) --> Normal esophagus, scarring in the gastric fundus and body, medium sized ulcer was found in the lesser curvature of the stomach, complete hemostasis achieved. Pathology (gastric body) mucosa with mild active chronic gastritis , negative for H. Pylori. KUB (04/15) Probable ileus with significant stool throughout the colon and part of the dilatation of loops of bowel could be due to fecal impaction. - GJ- last changed approximately a month ago per mother at [facility]- received continuous feeding, Jevity at 60 mL/hr Plan: EGD tomorrow Obtain consent NPO after MN Monitor H/H Protonix Soap suds enema x 2 Mag Citrate x 1 Further recommendations based on clinical course and results of above Pt has been seen and examined by myself and Dr. Mackay and this note is written on his behalf <Chioma Pastor - Last Filed: 04/15/18 12:17> - Attending Attestation Patient was seen and examined Agree with above Continue with current supportive care Monitor labs EGD tomorrow <David Mackay - Last Filed: 04/15/18 20:14>
[2018-04-15] MEDS: Pantoprazole Inj 40 MG Vial IV.PUSH SCH ×2 (14:06→23:41)
[2018-04-15] MEDS ORDERED: Magnesium Citrate Liq 300 ML Bottle PO ONE (15:00)
--- NOTE | 2018-04-15 17:37 | ECG ---
Date Performed: 04/15/2018 Time Performed: 08:14:55 PTAGE: 37 years EKG: SINUS TACHYCARDIA POSSIBLE RIGHT VENTRICULAR HYPERTROPHY NONSPECIFIC T-WAVE ABNORMALITY ABN ORMAL ECG PREVIOUS TRACING 09/18/17 @ 10.29.54 Since the previous tracing, no significant change noted DOCTOR: Justyn Cleary Interpretating Date/Time 04/15/2018 17:36:33
[2018-04-15] MEDS: Senna/Docusate Sodium 8.6/50 MG Tablet PO SCH (23:41)
[2018-04-16] MEDS ORDERED: Metoprolol Tartrate 25 MG Tablet PO SCH (09:45)
[2018-04-16] MEDS ORDERED: Chlorhexidine Gluconate 2% 1 Pack (2 Cloths) TOPICAL SCH (09:45)
[2018-04-16] MEDS ORDERED: Sodium Chlor 0.9% Inj 500 ML IV.SIG SCH (10:00)
[2018-04-16] MEDS: Senna/Docusate Sodium 8.6/50 MG Tablet PO SCH ×2 (10:21→20:41)
[2018-04-16] MEDS: Dextrose 5%/NaCl 0.45% Inj 1,000 ML IV.CONT SCH (10:22)
[2018-04-16] MEDS: Azithromycin Inj 500 MG in Sodium Chlor 0.9% Inj 250 ML IV.SIG SCH (10:22)
[2018-04-16 10:59] LABS: Baso % (Auto) 0.4 % (0.0-2.0); Eos # (Auto) 0.3 th/mm3 (0.0-0.4); Eos % (Auto) 3.3 % (0.0-4.0); Hematocrit 37.6 % (39.0-51.0); Hemoglobin 12.2 gm/dL (13.0-17.0); Lymph # (Auto) 3.2 th/mm3 (1.0-4.8); Lymph % (Auto) 39.4 % (9.0-44.0); Mean Corpuscular HGB Conc 32.6 % (32.0-36.0); Mean Corpuscular Hemoglobin 24.9 pg (27.0-34.0); Mean Corpuscular Volume 76.6 fL (80.0-100.0); Mean Platelet Volume 8.8 fL (7.0-11.0); Mono # (Auto) 0.5 th/mm3 (0.0-0.9); Mono % (Auto) 6.7 % (0.0-8.0); Neut # (Auto) 4.1 th/mm3 (1.8-7.7); Neut % (Auto) 50.2 % (16.0-70.0); Platelet Count 228 th/mm3 (150-450); Red Cell Distribution Width 22.2 % (11.6-17.2); White Blood Count 8.1 th/mm3 (4.0-11.0)
--- NOTE | 2018-04-16 11:00 | P.HPFP ---
History of Present Illness Primary Care Physician: Andrew St MD History of Present Illness: This patient is a non-verbal, wheel chair bound, -Iraqi 37-year-old male with a past medical history of cerebral palsy, seizures, prior GI ulcer in 2017, prior aspiration pneumonia requiring intubation for 2 weeks. Patient's PCP is Dr. Andrew St with last exam on March 13, 2018. Patient presented to the ED with a 3 day history of productive cough with white mucus and a 3 day history of constipation. Coughing began on Sunday per mother and was productive with white mucus. On Sunday mother reports subjective warmth but denies any vomiting. Mom tried Mucinex that she believes helped his breathing a little but his coughing has neither worsened nor bettered. His cough has no aggravating or alleviating factors. Mother states that coughing comes and goes about 4 times a day and each coughing episode lasts about 2 minutes. He has experienced some shortness of breath that was slightly eased by the Mucinex. She also reports difficulty breathing since Sunday. The morning of admission the mother observed heavy and fast breathing and sought medical attention for the patient. Per mother subjective fevers but no chills. Of note per mother patient is current on Pneumovax. Per mother patient has also been constipated since the end of last week. On she tried an enema and believes she was able to get some stool out but not very much. On Sunday she tried a suppository with no resolve. He is currently on MiraLAX at home and in the past enemas have worked for prior constipation. In the ED the patient was found to have positive Hemoccult in stool and in emesis. Mother denies any blood in the stool or in sputum. Patient has a G J-tube in place that was replaced approximately a month ago. He is currently on the Jevity formula at a 60 mL rate. Patient is followed by Dr. Tenorio at [place]. Of note: Patient had an EGD for hematemesis on May 01, 2017. Biopsy revealed acute ulcerative and chronic esophagitis, fungal hyphal and yeast forms consistent with Francoise. Patient lives with mother, stepfather and sister and is taken care of by a home nurse. Overnight he has been stable. He was seen this morning with his father and has no new symptoms. - Diagnosis (1) Pneumonia (2) Constipation (3) Cerebral palsy (4) Nutrition, metabolism, and development symptoms Inpatient Certification: I certify that the inpatient services were ordered in accordance with Medicare regulations governing the order. This includes certification that hospital inpatient services are reasonable and necessary and in the case of services not specified as inpatient-only under 42 CFR 419.22(n), that they are appropriately provided as inpatient services in accordance to with the 2-midnight benchmark under 43 CFR 412.3(e) Review of Systems unobtainable due to mental condition PMFSH - History History Provided By: Family Member - Medical History Medical History: Medical History (Last Updated 04/15/18 @ 06:45 by Ladi Yu RN) Seizures (Acute) Cerebral palsy (Acute) Pneumonia - Tobacco History Second Hand Smoke Exposure: No Tobacco Use In Past 30 Days: No Smoking Status: Never smoker - Alcohol History How Often Do You Have a Drink Containing Alcohol: Never - Substance Use History Substance History: No History of Abuse - Travel History Recent Travel in the [place] Within the Last 8 Weeks: No Recent Travel Out of the Country Within the Last 8 Weeks: No - Immunization History Tetanus Immunization: Unsure Hx Influenza Vaccine This Season: Yes (Per mother patient is up-to-date on Pneumovax) Medications and Allergies Active Medications: Active Medications Acetaminophen (Tylenol) 650 mg PO Q4H PRN PRN Reason: Temp > 100.4 Al Hydroxide/Mg Hydroxide (Milk Of Flora Gill) 30 ml PO Q12H PRN PRN Reason: Mild Constipation Bisacodyl (Dulcolax Supp) 10 mg RECTAL DAILY PRN PRN Reason: SEVERE CONSITIPATION Chlorhexidine Gluconate (Chlorhexidine 2% Cloth) 3 pack [employer]ICAL [employer] [facility] Stop: 04/19/18 09:35 Ceftriaxone Sodium 1,000 mg/ (Sodium Chloride) 100 mls @ 200 mls/hr IV.SIG Q24H [facility] Last Admin: 04/16/18 10:23 Dose: 200 mls/hr Azithromycin 500 mg/ Sodium (Chloride) 250 mls @ 250 mls/hr IV.SIG Q24H [facility] Last Admin: 04/16/18 10:22 Dose: 250 mls/hr Dextrose/Sodium Chloride (D5w/1/2 Ns Inj) 1,000 mls @ 95 mls/hr IV.CONT .[id number] [facility] Last Admin: 04/16/18 10:22 Dose: 95 mls/hr Lactated Ringer's (Lr 1000 Ml Inj) 1,000 mls @ 30 mls/hr IV.SIG .Q24H [facility] Stop: 04/19/18 09:35 Last Admin: 04/16/18 10:32 Dose: Not Given Sodium Chloride (Ns Inj) 500 mls @ 30 mls/hr IV.SIG .Q10H [facility] Stop: 04/19/18 09:35 Lactulose (Lactulose Liq) 30 ml PO DAILY PRN PRN Reason: SEVERE CONSITIPATION Metoprolol Tartrate (Lopressor) 25 mg PO [employer] [facility] Stop: 04/19/18 09:35 Last Admin: 04/16/18 10:23 Dose: 25 mg Pantoprazole Sodium (Protonix Inj) 40 mg IV.PUSH Q12H [facility] Last Admin: 04/15/18 23:41 Dose: 40 mg Povidone Iodine (Betadine 5% Antisepsis Kit) 1 applicatio EACH NARE [employer] [facility] Stop: 04/19/18 09:35 Senna/Docusate Sodium (Violetta-Colace) 1 tab PO BID [facility] Last Admin: 04/16/18 10:21 Dose: Not Given Sennosides (Senokot) 17.2 mg PO Q12H PRN PRN Reason: Moderate Constipation Allergies Allergy/AdvReac Type Severity Reaction Status Date / Time No Known Allergies Allergy Verified 04/15/18 06:30 Home Medications Medication Instructions Recorded Confirmed Type metoclopramide HCl [Reglan] 5 mg PO TID 04/15/18 04/15/18 History phenytoin sodium extended 100 mg PO BID 04/15/18 04/15/18 History [Dilantin Extended] topiramate [Topamax] 1 mg/kg PO BID 04/15/18 04/15/18 History trazodone 25 mg PO HS 04/15/18 04/15/18 History Exam Vital signs: Vital Signs 04/15/18 16:00 04/15/18 17:36 04/15/18 20:00 Temperature 97.0 F L Pulse Rate 94 H 104 H 98 H Respiratory Rate 16 20 16 Blood Pressure 132/77 116/73 106/68 Pulse Oximetry 95 97 98 04/16/18 00:00 04/16/18 08:00 Temperature 98.5 F 97.9 F Pulse Rate 112 H 105 H Respiratory Rate 16 20 Blood Pressure 109/74 102/67 Pulse Oximetry 98 Intake & Output 04/15/18 04/16/18 04/16/18 18:59 06:59 18:59 Weight 54.431 kg Other: # Voids 1 Date of Last Bowel Movement 04/15/18 04/16/18 # Bowel Movements 2 Weight On Admission 54.431 kg - Constitutional no acute distress, thin, chronically ill appearing - Routine HEENT Exam Head: Present: normocephalic, atraumatic. Absent: cushingoid faces, abrasion, laceration, hematoma, tenderness of temporal artery, facial swelling Eye: Present: nystagmus. Absent: conjunctival icterus, scleral injection, conjunctivae pink, periorbital swelling ENT: Present: mucous membranes moist, external ear normal - Routine Neck Exam Present: trachea midline - Routine Chest/Breast/Axilla Exam Chest wall: Absent: mass, pacemaker, chest tube - Routine Respiratory Exam Present: CTA bilaterally. Absent: accessory muscle use, patient mechanically ventilated, decreased breath sounds, prolonged expiratory phase, respiratory distress, rhonchi, stridor, wheezes, crackles, distant breath sounds, diminished air movement - Routine Cardiovascular Exam Present: RRR. Absent: murmur, gallop, rubs, irregular rhythm, irregularly irregular - Routine Abdominal Exam Present: soft, drain (Feeding tube). Absent: tenderness, distended, rebound, guarding, ostomy - Routine Extremities Exam Absent: cyanosis, clubbing, edema, full ROM (Multiple contractures and atrophy of his extremities), palpable cord - Routine Skin Exam Present: intact. Absent: cyanosis, erythema, rash, gangrene - Routine Neurological Exam Present: moving all extremities, nystagmus. Absent: alert, oriented X3, hemineglect, fasciculations, tremors, asterixis Results - Labs Result diagrams: 04/16/18 10:45 04/15/18 09:25 Caprini VTE Risk Assessment Caprini VTE Risk Assessment: Moderate/High Risk (score >= 2) Caprini Risk Assessment Model: Point Value = 1 Point Value = 2 Point Value = 3 Point Value = 5 Age 41-60 Minor surgery BMI > 25 kg/m2 Swollen legs Varicose veins or History of unexplained or recurrent spontaneous Oral contraceptives or hormone replacement Sepsis (< 1 month) Serious lung disease, including pneumonia (< 1 month) Abnormal pulmonary function Acute myocardial infarction Congestive heart failure (< 1 month) History of inflammatory bowel disease Medical patient at bed rest Age 61-74 Arthroscopic surgery Major open surgery (> 45 min) Laparoscopic surgery (> 45 min) Malignancy Confined to bed (> 72 hours) Immobilizing plaster cast Central venous access Age >= 75 History of VTE Family history of VTE Factor V Leiden Prothrombin [id number] Lupus anticoagulant Anticardiolipin antibodies Elevated serum homocysteine Heparin-induced thrombocytopenia Other congenital or acquired thrombophilia Stroke (< 1 month) Elective arthroplasty Hip, pelvis, or leg fracture Acute spinal cord injury (< 1 month) Prophylaxis Regimen: Total Risk Factor Score Risk Level Prophylaxis Regimen 0-1 Low Early ambulation 2 Moderate Order ONE of the following: *Sequential Compression Device (SCD) *Heparin 5000 units SQ BID 3-4 Higher Order ONE of the following medications: *Heparin 5000 units SQ TID *Enoxaparin/Lovenox 40 mg SQ daily (WT < 150 kg, CrCl > 30 mL/min) *Enoxaparin/Lovenox 30 mg SQ daily (WT < 150 kg, CrCl > 10-29 mL/min) *Enoxaparin/Lovenox 30 mg SQ BID (WT < 150 kg, CrCl > 30 mL/min) AND/OR *Sequential Compression Device (SCD) 5 or more Highest Order ONE of the following medications: *Heparin 5000 units SQ TID (Preferred with Epidurals) *Enoxaparin/Lovenox 40 mg SQ daily (WT < 150 kg, CrCl > 30 mL/min) *Enoxaparin/Lovenox 30 mg SQ daily (WT < 150 kg, CrCl > 10-29 mL/min) *Enoxaparin/Lovenox 30 mg SQ BID (WT < 150 kg, CrCl > 30 mL/min) AND *Sequential Compression Device (SCD) Assessment and Plan - Assessment (1) Pneumonia Code(s): J18.9 - Pneumonia, unspecified organism Status: Acute Plan: This patient presents the ED with a 3 day history of productive cough with white mucus. Coughing began on Sunday per mother and has been productive throughout. This patient has a history of prior pneumonia requiring intubation and extended ICU stay which required tracheostomy. Per mother patient had difficulty breathing starting on Sunday. On presentation to the ED patient had a pulse of 112 and a respiratory rate of 28. Chest x-ray findings showed a left lung perihilar consolidation extending to the left lung base which may represent pneumonia. On physical exam patient was rhonchorous in all lung lopez bilaterally. Patient currently satting 97% on room air. Patient to be treated for community-acquired pneumonia vs pneumonia due to aspiration, unlikely due lack of oral feeding due to GJ tube in place. - Continue azithromycin - Continue ceftriaxone - Follow up with Legionella urine antigen screen - Follow CBC - Monitor vitals - Follow-up with sputum culture and Gram stain - Follow-up with blood culture (2) Constipation Code(s): K59.00 - Constipation, unspecified Status: Acute Plan: Patient with 3 day history of constipation. Per mother patient received an enema this past with minimal resolved. On Sunday his mother gave him a suppository no success. Patient takes MiraLAX at home. This patient has a JG tube in place. Last EGD on August 2017 showed a normal esophagus scarring in the gastric fundus and body, and a medium-sized ulcer was also found in the lesser curvature the stomach. Pathology from the gastric body mucosa showed mild active chronic gastritis but was negative for H pylori. In the ED patient was positive for stool Hemoccult as well as positive Hemoccult in the emesis. H\H on admission was 14.5\44. On x-ray of the abdomen showed probable ileus with significant stool throughout the colon and part of the dilation of loops of bowel could possibly due to fecal impaction. GI consult in place. Will follow GI recommendations. -EGD tomorrow -Monitor H\H -Continue Protonix -Mag citrate 1 Some of his medications could cause constipation. Will see if he continues to need trazodone and Reglan. (3) Cerebral palsy Code(s): G80.9 - Cerebral palsy, unspecified Status: Acute Plan: This patient is nonverbal wheelchair-bound 37-year-old man with cerebral palsy. Patient lives with mother stepfather and sister and at this time physical therapy is not indicated. Due to motor impairment patient is bedbound. -Fall precautions, doubt he can roll over effectively. -DVT prophylaxis with SCDs due to GI bleed (4) Nutrition, metabolism, and development symptoms Code(s): R63.8 - Other symptoms and signs concerning food and fluid intake Status: Acute Plan: Fluids: Not indicated at this time Electrolytes: Replete as needed Nutrition: Tube feeding with Jevity formula at a rate of 60 mL. We will give D5 as an IV fluid when he is n.p.o. DVT prophylaxis: SCDs due to possible GI bleed H&P: Quality - VTE Deep Vein Thrombosis/Pulmonary Embolism Present on Admission: No (1) Pneumonia Qualifiers: Pneumonia type: due to unspecified organism Laterality: unspecified laterality Lung location: unspecified part of lung Qualified Code(s): J18.9 - Pneumonia, unspecified organism (2) Constipation Qualifiers: Constipation type: unspecified constipation type Qualified Code(s): K59.00 - Constipation, unspecified (3) Cerebral palsy Qualifiers: Cerebral palsy type: unspecified type Qualified Code(s): G80.9 - Cerebral palsy, unspecified
[2018-04-16] MEDS ORDERED: Glycopyrrolate Inj 1 MG/5 ML Syringe IV.PUSH ONE (12:00)
--- NOTE | 2018-04-16 13:01 | P.PCN ---
Date of procedure: 04/16/18 Pre-op diagnosis: Coffee-ground emesis Post-op diagnosis: other Procedure: PROCEDURE PERFORMED EGD with biopsy INDICATION FOR PROCEDURE Coffee-ground emesis PROCEDURE: The procedure, risks and benefits were discussed with Patient/POA and informed consent was obtained. Anesthesia sedated Patient with Diprivan. Patient was placed in the left lateral decubitus position. EGD: The Pentax videoscope was introduced through the oropharynx and advanced to the second portion of the duodenum under direct visualization. Retroflexion was performed in the stomach. FINDINGS: The esophagus the distal esophageal mucosa appeared to be friable and erythemic involving the total distal third of the esophagus this was biopsied The stomach the anatomy of the stomach was somewhat obscured probably due to the fact that he has a GJ tube and I noted some torsion but otherwise the gastric mucosa appeared to be unremarkable except for an area of erythema and ulceration where the jejunal tube balloon resides so this is probably secondary to that and this area was biopsied the rest of the mucosa appeared to be unremarkable The duodenum this was normal ESTIMATED BLOOD LOSS: None SPECIMENS REMOVED: Esophageal and gastric biopsies COMPLICATIONS: None IMPRESSION: Gastric ulcer Gastritis Esophagitis PLAN: Await biopsies Recommend pantoprazole 40 mg twice daily Repeat endoscopy in 2-3 months Continue with current supportive care Monitor labs and transfuse if needed Anesthesia: MAC Surgeon: David Mackay Pathology: other Condition: stable Disposition: floor
[2018-04-16] MEDS: Pantoprazole Inj 40 MG Vial IV.PUSH SCH (14:51)
--- NOTE | 2018-04-16 15:28 | P.DIET ---
Nutritional Evaluation Type of nutrition evaluation: initial Nutrition consult regarding: Tube Feeding Nutrition screening: [facility] [place] Subjective Subjective Comments: Family reports pt had G/J tube placed one month ago. Current home TF is Jevity 1.5 @ 60 ml/hr Objective - Diagnosis PNA, Constipation - Objective % IBW: 113 Body Weight Used for Calculations: Actual (This is an ESTIMATED WT) Energy Needs - Lower Range (kCal/kg): 28 Energy Needs - Upper Range (kCal/kg): 33 Lower Limit kCal/kg (kCals): 1,523 Upper Limit kCal/kg (kCals): 1,795 Lower Limit Protein Factor (Grams per Kg): 1.2 Upper Limit Protein Factor (Grams per Kg): 1.4 Lower Protein Needs (Protein): 65 Upper Protein Needs (Protein): 82 Fluid Factor (ml/kg): 35 Estimated Fluid Needs (ml): 1,904 Dietitian Reviewed in Medical Record: Current diet, Curent medications, Intake & Output, Labs, Medical history, Tube feeding Objective Comments: PMH: CP, Seizures, PNA Alk Phos 141 Pt wheelchair bound +2 BM's Assessment Assessment: Pt at nutritional risk r/t dx and need for a TF for nutritional support. Pt admitted with PNA, constipation; s/p KUB 04/15, EGD today. No ileus, pt with gastric ulcer, gastritis, esophagitis, biopsies were taken. Nutrition assessment based on estimated wt, need an actual wt for a more accurate assessment. Current TF of Jevity 1.5 with goal rate 60 ml/hr is what pt does at home. It provides 2160 kcals, 92 gms protein and 1094 mls free water. This is more than adequate to meet pt's nutritional needs. Will monitor TF tolerance, clinical course. Recommendations: TF Jevity 1.5 with goal rate 60 ml/hr Dietitian to Monitor: Lab values, Intake & Output, Tube feeding tolerance, Weight change, Medical course
[2018-04-16 19:45] LABS: Anion Gap 8 meq/L (5-15); Blood Urea Nitrogen 19 mg/dL (7-18); Calcium 8.7 mg/dL (8.5-10.1); Chloride 107 meq/L (98-107); Glomerular Filtration Rate Greater Than 89 mL/min (>89); Glucose,Random 105 mg/dL (74-106); Magnesium 2.4 mg/dL (1.5-2.5); Phosphorus 2.2 mg/dL (2.5-4.9); Potassium 3.6 meq/L (3.5-5.1); Sodium 140 meq/L (136-145)
[2018-04-16] MEDS ORDERED: Topiramate 100 MG Tablet PO SCH (21:00)
[2018-04-16] MEDS: Phenytoin Sodium 100 MG Capsule PO SCH (21:43)
[2018-04-16 23:17] LABS: Hematocrit 36.7 % (39.0-51.0); Hemoglobin 11.7 gm/dL (13.0-17.0)
[2018-04-17 06:59] LABS: Hematocrit 36.4 % (39.0-51.0); Hemoglobin 11.6 gm/dL (13.0-17.0); Mean Corpuscular HGB Conc 31.8 % (32.0-36.0); Mean Corpuscular Hemoglobin 24.7 pg (27.0-34.0); Mean Corpuscular Volume 77.6 fL (80.0-100.0); Platelet Count 230 th/mm3 (150-450); Red Cell Distribution Width 22.2 % (11.6-17.2); White Blood Count 5.3 th/mm3 (4.0-11.0)
--- NOTE | 2018-04-17 10:21 | P.PNGI ---
Subjective Interval history: Pt awake, in no apparent distress, nonverbal. Discussed with RN, Dr. Garcia and resident, pt has had 3 BMs since arrival. No further reports of emesis. H/H remains stable. Tolerating TF. <Jay Pastorsey - Last Filed: 04/17/18 10:16> Physical Exam Vital signs: Vital Signs 04/16/18 20:00 04/17/18 00:00 Temperature 98.4 F 97.5 F L Pulse Rate 76 79 Respiratory Rate 20 18 Blood Pressure 107/69 99/58 L Pulse Oximetry 100 100 Intake & Output 04/16/18 04/17/18 04/17/18 18:59 06:59 18:59 Intake Total 100 / 100 Balance 100 / 100 Intake: IV 100 / 100 D5W/1/2 NS Inj 1,000 ML @ 95 100 / 100 mls/hr IV.CONT .[id number] [facility] Rx# :[id number] Other: # Incontinent Voids 1 # Urine Diapers 1 # Bowel Movements 1 - Constitutional no acute distress - Routine HEENT Exam Head: Present: normocephalic, atraumatic - Routine Respiratory Exam Present: CTA bilaterally. Absent: accessory muscle use - Routine Cardiovascular Exam Present: RRR - Routine Abdominal Exam Present: soft, normoactive bowel sounds. Absent: tenderness Comments: GJ clamped - Routine Skin Exam Present: dry, warm - Routine Neurological Exam Present: alert <Jay Pastorsey - Last Filed: 04/17/18 10:16> Vital signs: Vital Signs 04/17/18 00:00 Temperature 97.5 F L Pulse Rate 79 Respiratory Rate 18 Blood Pressure 99/58 L Pulse Oximetry 100 <David Mackay - Last Filed: 04/17/18 22:59> Results - Labs CBC & Chem 7: 04/17/18 05:23 04/16/18 19:03 Laboratory Results - last 24 hr 04/16/18 04/16/18 04/16/18 10:45 19:03 23:07 WBC 8.1 RBC 4.90 Hgb 12.2 L D 11.7 L Hct 37.6 L 36.7 L MCV 76.6 L MCH 24.9 L MCHC 32.6 RDW 22.2 H Plt Count 228 MPV 8.8 Prelim Diff (Auto) Slide review pending Neut % (Auto) 50.2 Lymph % (Auto) 39.4 [place] % (Auto) 6.7 Eos % (Auto) 3.3 Baso % (Auto) 0.4 Neut # (Auto) 4.1 Lymph # (Auto) 3.2 [place] # (Auto) 0.5 Eos # (Auto) 0.3 Baso # (Auto) 0.0 WBC Differential . Diff Scan Auto diff confirmed Differential Comment . Sodium 140 Potassium 3.6 Chloride 107 Carbon Dioxide 25.0 Anion Gap 8 BUN 19 H Creatinine 0.68 Estimated GFR Greater than 89 Random Glucose 105 Calcium 8.7 D Phosphorus 2.2 L Magnesium 2.4 Blood Type Antibody Screen 04/16/18 04/17/18 23:07 05:23 WBC 5.3 RBC 4.70 Hgb 11.6 L Hct 36.4 L MCV 77.6 L MCH 24.7 L MCHC 31.8 L RDW 22.2 H Plt Count 230 MPV 9.0 Prelim Diff (Auto) Neut % (Auto) Lymph % (Auto) [place] % (Auto) Eos % (Auto) Baso % (Auto) Neut # (Auto) Lymph # (Auto) [place] # (Auto) Eos # (Auto) Baso # (Auto) WBC Differential Diff Scan Differential Comment Sodium Potassium Chloride Carbon Dioxide Anion Gap BUN Creatinine Estimated GFR Random Glucose Calcium Phosphorus Magnesium Blood Type A Positive Antibody Screen Negative Microbiology 04/15/18 09:40 Blood - Peripheral Aerobic Blood Culture - Preliminary No growth in 1 day 04/15/18 09:40 Blood - Peripheral Anaerobic Blood Culture - Preliminary No growth in 1 day 04/15/18 09:25 Blood - Peripheral Aerobic Blood Culture - Preliminary No growth in 1 day 04/15/18 09:25 Blood - Peripheral Anaerobic Blood Culture - Preliminary No growth in 1 day <Chioma Pastor - Last Filed: 04/17/18 10:16> - Labs CBC & Chem 7: 04/17/18 05:23 04/16/18 19:03 Laboratory Results - last 24 hr 04/16/18 04/16/18 04/17/18 23:07 23:07 05:23 WBC 5.3 RBC 4.70 Hgb 11.7 L 11.6 L Hct 36.7 L 36.4 L MCV 77.6 L MCH 24.7 L MCHC 31.8 L RDW 22.2 H Plt Count 230 MPV 9.0 Blood Type A Positive Antibody Screen Negative Microbiology 04/15/18 09:40 Blood - Peripheral Aerobic Blood Culture - Preliminary No growth in 2 days 04/15/18 09:40 Blood - Peripheral Anaerobic Blood Culture - Preliminary No growth in 2 days 04/15/18 09:25 Blood - Peripheral Aerobic Blood Culture - Preliminary No growth in 2 days 04/15/18 09:25 Blood - Peripheral Anaerobic Blood Culture - Preliminary No growth in 2 days <David Mackay - Last Filed: 04/17/18 22:59> Assessment and Plan - Plan Assessment: - Heme positive stool and emesis with history of gastric ulcer H/H currently stable Pt with CP, unable to provide history, history obtained through chart review and mother at bedside. She reports no emesis at home. His abdomen seemed distended and firm on S/P enema with large BM and suppository on Sunday which she states seemed to improve distention. No BM since Sunday. She normally gives him Miralax every other day and suppositories and enemas as needed. No previous colonoscopy Last EGD (Aug 2017) --> Normal esophagus, scarring in the gastric fundus and body, medium sized ulcer was found in the lesser curvature of the stomach, complete hemostasis achieved. Pathology (gastric body) mucosa with mild active chronic gastritis , negative for H. Pylori. KUB (04/15) Probable ileus with significant stool throughout the colon and part of the dilatation of loops of bowel could be due to fecal impaction. - GJ- last changed approximately a month ago per mother at [facility]- received continuous feeding, Jevity at 60 mL/hr (04/17) S/P EGD yesterday. No further reports of emesis. H/H stable. Pt has had 3 BMs since arrival. Discussed with RN, Dr. Garcia and resident. EGD --> Gastric ulcer, gastritis, esophagitis. Biopsies taken. Plan: EGD biopsy pending Protonix TF- Jevity 1.5 @ 60 mL/hr Bowel regimen as needed OK to DC pt from a GI perspective Have pt follow up with GI after DC Pt has been seen and examined by myself and Dr. Mackay and this note is written on his behalf <Chioma Pastor - Last Filed: 04/17/18 10:16> - Attending Attestation Patient seen and examined Agree with above Continue with current supportive care Monitor labs Family has requested GJ tube be changed of note the bulb was noted to be deflated during the endoscopy yesterday so I would recommend that this be changed prior to discharge We will sign off <David Mackay E - Last Filed: 04/17/18 22:59>
[2018-04-17] MEDS: Pantoprazole Inj 40 MG Vial IV.PUSH SCH ×2 (11:26)
--- NOTE | 2018-04-17 11:33 | P.PNFP ---
Subjective Interval history: Mr Thakur is noncommunicative verbally. The history was obtained from his nurse. He was tolerating his tube feeds well yesterday. Inadvertently his feeds were stopped at midnight with the thought that he needed to be n.p.o. However they are being restarted today. Hemodynamically and as far as his respiratory condition he is doing well. He has no respiratory distress and it appears very comfortable. Per his chart he has had 3 bowel movements. His parents are not with him in the room this morning. They are his main caretakers and have done an excellent job. As he is doing so well he could be able to go home today and follow-up with GI. Results - Labs Result diagrams: 04/17/18 05:23 04/16/18 19:03 Abnormal lab results 04/16/18 04/16/18 04/17/18 Range/Units 19:03 23:07 05:23 Hgb 11.7 L 11.6 L (13.0-17.0) gm/dL Hct 36.7 L 36.4 L (39.0-51.0) % MCV 77.6 L (80.0-100.0) fL MCH 24.7 L (27.0-34.0) pg MCHC 31.8 L (32.0-36.0) % RDW 22.2 H (11.6-17.2) % BUN 19 H (7-18) mg/dL Phosphorus 2.2 L (2.5-4.9) mg/dL Short CBC 04/16/18 04/17/18 Range/Units 23:07 05:23 WBC 5.3 (4.0-11.0) th/mm3 Hgb 11.7 L 11.6 L (13.0-17.0) gm/dL Hct 36.7 L 36.4 L (39.0-51.0) % Plt Count 230 (150-450) th/mm3 BMP 04/16/18 19:03 Sodium 140 Potassium 3.6 Chloride 107 Carbon Dioxide 25.0 BUN 19 H Creatinine 0.68 Calcium 8.7 D Physical Exam Vital signs: Vital Signs 04/16/18 20:00 04/17/18 00:00 Temperature 98.4 F 97.5 F L Pulse Rate 76 79 Respiratory Rate 20 18 Blood Pressure 107/69 99/58 L Pulse Oximetry 100 100 Intake & Output 04/16/18 04/17/18 04/17/18 18:59 06:59 18:59 Intake Total 100 / 100 Balance 100 / 100 Intake: IV 100 / 100 D5W/1/2 NS Inj 1,000 ML @ 95 100 / 100 mls/hr IV.CONT .[id number] [facility] Rx# :[id number] Other: # Incontinent Voids 1 # Urine Diapers 1 # Bowel Movements 1 - Constitutional no acute distress, thin (Atrophic as his muscles never really developed in his legs and arms) - Routine HEENT Exam Head: Present: normocephalic, atraumatic. Absent: abrasion, laceration, facial swelling Eye: Present: EOMI, nystagmus. Absent: conjunctival icterus, scleral injection , proptosis, cataracts ENT: Present: mucous membranes moist, external ear normal - Routine Neck Exam Present: trachea midline (Scar from old tracheotomy) - Routine Respiratory Exam Present: CTA bilaterally. Absent: accessory muscle use, patient mechanically ventilated, decreased breath sounds, prolonged expiratory phase, rales, respiratory distress, rhonchi - Routine Cardiovascular Exam Present: RRR. Absent: murmur, gallop, rubs, bradycardia, tachycardia, irregular rhythm, irregularly irregular - Routine Abdominal Exam Present: soft, normoactive bowel sounds, drain (Feeding tube in place no signs of infection). Absent: tenderness, distended, rebound, organomegaly - Routine Extremities Exam Absent: cyanosis, clubbing, edema, full ROM, joint swelling - Routine Skin Exam Present: intact, dry. Absent: pallor, mottling, petechiae, rash, alopecia, gangrene - Routine Neurological Exam Present: alert, motor deficit (Chronic motor deficits due to his cerebral palsy) , abnormal gait (Bedridden not able to walk). Absent: oriented X3, sensory deficit, clonus, tremors Assessment and Plan - Assessment (1) Pneumonia Code(s): J18.9 - Pneumonia, unspecified organism Status: Acute Plan: This patient presents the ED with a 3 day history of productive cough with white mucus. Coughing began on Sunday per mother and has been productive throughout. This patient has a history of prior pneumonia requiring intubation and extended ICU stay which required tracheostomy. Per mother patient had difficulty breathing starting on Sunday. On presentation to the ED patient had a pulse of 112 and a respiratory rate of 28. Chest x-ray findings showed a left lung perihilar consolidation extending to the left lung base which may represent pneumonia. On physical exam patient was rhonchorous in all lung lopez bilaterally. Patient currently satting 97% on room air. Patient to be treated for community-acquired pneumonia vs pneumonia due to aspiration, unlikely due lack of oral feeding due to GJ tube in place. - Continue azithromycin he should be able to have this continue as an outpatient - Continue ceftriaxone - Follow up with Legionella urine antigen screen - Follow CBC. His CBC is normal at this time. - Monitor vitals - Follow-up with sputum culture and Gram stain - Follow-up with blood culture (2) Cerebral palsy Code(s): G80.9 - Cerebral palsy, unspecified Status: Acute Plan: This patient is nonverbal wheelchair-bound 37-year-old man with cerebral palsy. Patient lives with mother stepfather and sister and at this time physical therapy is not indicated. Due to motor impairment patient is bedbound. -Fall precautions, doubt he can roll over effectively. -DVT prophylaxis with SCDs due to GI bleed (3) Nutrition, metabolism, and development symptoms Code(s): R63.8 - Other symptoms and signs concerning food and fluid intake Status: Acute Plan: Fluids: Not indicated at this time Electrolytes: Replete as needed Nutrition: Tube feeding with Jevity formula at a rate of 60 mL. We will give D5 as an IV fluid when he is n.p.o. DVT prophylaxis: SCDs due to possible GI bleed (4) Constipation Code(s): K59.00 - Constipation, unspecified Status: Resolved Plan: Patient with 3 day history of constipation. Per mother patient received an enema this past with minimal resolved. On Sunday his mother gave him a suppository no success. Patient takes MiraLAX at home. This patient has a JG tube in place. Last EGD on August 2017 showed a normal esophagus scarring in the gastric fundus and body, and a medium-sized ulcer was also found in the lesser curvature the stomach. Pathology from the gastric body mucosa showed mild active chronic gastritis but was negative for H pylori. In the ED patient was positive for stool Hemoccult as well as positive Hemoccult in the emesis. H\H on admission was 14.5\44. On x-ray of the abdomen showed probable ileus with significant stool throughout the colon and part of the dilation of loops of bowel could possibly due to fecal impaction. GI consult in place. Will follow GI recommendations. -EGD done. -Monitor H\H -Continue Protonix -Mag citrate 1 Some of his medications could cause constipation. Will see if he continues to need trazodone and Reglan. On discussion with GI they felt that his Reglan could be held for now. He had 3 bowel movements since being admitted to the hospital and this problem is resolved. - Assessment and Plan Discharge Planning: Anticipate discharge home today with close follow-up with GI. (1) Pneumonia Qualifiers: Pneumonia type: due to unspecified organism Laterality: left Lung location: unspecified part of lung Qualified Code(s): J18.9 - Pneumonia, unspecified organism (2) Cerebral palsy Qualifiers: Cerebral palsy type: unspecified type Qualified Code(s): G80.9 - Cerebral palsy, unspecified (4) Constipation Qualifiers: Constipation type: unspecified constipation type Qualified Code(s): K59.00 - Constipation, unspecified
[2018-04-17] MEDS: Azithromycin Inj 500 MG in Sodium Chlor 0.9% Inj 250 ML IV.SIG SCH (12:34)
[2018-04-17] MEDS: Senna/Docusate Sodium 8.6/50 MG Tablet PO SCH (12:36)
[2018-04-17] MEDS: Phenytoin Sodium 100 MG Capsule PO SCH (13:09)
[2018-04-18] MEDS: Pantoprazole Inj 40 MG Vial IV.PUSH SCH ×2 (00:02→12:30)
[2018-04-18] MEDS: Phenytoin Sodium 100 MG Capsule PO SCH ×3 (00:03→12:04)
[2018-04-18] MEDS: Senna/Docusate Sodium 8.6/50 MG Tablet PO SCH ×2 (00:03→12:04)
[2018-04-18] MEDS: Dextrose 5%/NaCl 0.45% Inj 1,000 ML IV.CONT SCH ×2 (04:29→15:09)
--- NOTE | 2018-04-18 09:21 | P.RAD ---
Post Procedure Progress Note - Procedure Information Supervising Radiologist: Gaston Wagner Jr, MD - Plan of Activity See PACS Report for procedural detail/treatment. Feeding Tube Feeding Tube: Gastro/Jejunostomy Procedure: Replacement [place] Tube Size: 22 Findings: Original GJ tube is fractured internally with the J port emptying into the stomach. A new 22F GJ tube was placed. Is in good position and OK to use.
[2018-04-18] MEDS ORDERED: Iohexol 350 MG/ML 50 ML Vial (for Rad Diag) G-TUBE ONE (09:33)
--- NOTE | 2018-04-18 10:53 | IR ---
EXAM DATE: 04/18/2018 9:55 AM EDT AGE/SEX: 37 years / Male INDICATIONS: Patient with malfunctioning GJ tube. CLINICAL DATA: This is the patient's initial encounter. Patient reports that signs and symptoms have been present for 3 days and indicates a pain score of Nonresponsive. MEDICAL/SURGICAL HISTORY: Gastroesophageal reflux disease. Gastroparesis. Cerebral palsy, scol iosis. GJ tube, trach. COMPARISON: No prior exams available for comparison. FLUORO TIME (min): 1.0 IMAGE SERIES: 2 CONTRAST (cc): 30 Omnipaque (iohexol) 350 DEVICE(S): 22 [place] Transgastric tube . . PROCEDURE: 1. Fluoroscopically guided gastrojejunostomy tube exchange. 2. Conscious sedation with continuous EKG and oximetry monitoring. The risks, benefits and alternatives to the procedure were explained and verbal and written consent w as obtained. The site was prepped in sterile fashion. Full sterile technique was used, including ca p, mask, sterile gloves and gown and a large sterile sheet. Hand hygiene and 2% chlorhexidine and/or betadine/alcohol prep was utilized per protocol for cutaneous antisepsis. The skin and subcutaneous tissues were infiltrated with local anesthetic solution. Injection of contrast through the jejunal port of the existing tube shows the tube fractured internal ly. The tube drains into the stomach directly through the jejunal port. With fluoroscopic guidance a guidewire was passed through the previous gastrojejunostomy tube and a f resh tube was placed over the guidewire. The balloon was inflated with appropriate volume of saline. Injection of positive contrast demonstrates good position of the gastric and jejunal lumens of the tube. Conscious sedation was performed with the prescribed dosages and duration as above in the presence of an independent trained radiology nurse to assist in the monitoring of the patient. EKG and oximetry remained stable throughout the procedure. The patient tolerated the procedure well and there were n o complications. The patient was sent to post anesthesia recovery in stable condition. CONCLUSION: 1. Uncomplicated gastrojejunostomy tube exchange as above. Electronically signed by: Gaston Wagner MD 04/18/2018 10:52 AM EDT
--- NOTE | 2018-04-18 11:40 | P.PNFP ---
Subjective Interval history: Patient was seen at bedside this morning. There were no acute events overnight. This is a nonverbal patient and review of systems could not be elicited. <Tai Robledo Gregory - 04/18/18 18:39> Results - Labs Result diagrams: 04/17/18 05:23 04/16/18 19:03 <LilianeDee Selena - 04/20/18 13:07> - Imaging Impressions Tube Change 04/18/18 00:00 CONCLUSION: 1. Uncomplicated gastrojejunostomy tube exchange as above. <Tai Robledo Gregory - 04/18/18 11:40> Physical Exam Vital signs: Vital Signs 04/17/18 20:00 04/18/18 00:00 Temperature 97.1 F L 97.4 F L Pulse Rate 60 53 L Respiratory Rate 16 17 Blood Pressure 104/55 L 100/59 L Pulse Oximetry 100 98 Intake & Output 04/17/18 04/18/18 04/18/18 18:59 06:59 18:59 Intake Total 950 / 950 Output Total 200 / 200 Balance -200 / -200 950 / 950 Intake: IV 950 / 950 Azithromycin Inj 500 MG In NS 250 / 250 Inj 250 ML @ 250 mls/hr IV.SIG Q24H [facility] Rx#:[id number] Rocephin Inj 1,000 MG In NS Inj 100 / 100 100 ML @ 200 mls/hr IV.SIG Q24H [facility] Rx#:[id number] Output: Urine 200 / 200 Other: Date of Last Bowel Movement 04/17/18 <Tai Robledo Gregory - 04/18/18 11:40> - Constitutional no acute distress, thin <Tai Robledo Gregory - 04/18/18 18:39> - Routine HEENT Exam Head: Present: normocephalic, atraumatic <Tai Robledo Gregory - 04/18/18 18:39> Eye: Present: EOMI <Robledo,Jose Gregory - 04/18/18 18:39> ENT: Present: mucous membranes moist <Robledo,Jose Gregory Waldrop 04/18/18 18:39> - Routine Respiratory Exam Present: CTA bilaterally. Absent: accessory muscle use, rales, rhonchi, stridor , wheezes, crackles, diminished air movement <RobledoTai sarkar - 04/18/18 18:39> - Routine Cardiovascular Exam Present: RRR, S1, S2. Absent: murmur, gallop, rubs, irregular rhythm <Tai Robledo 04/18/18 18:39> - Routine Abdominal Exam Present: soft, normoactive bowel sounds <Tai Robledo 04/18/18 18:39> Comments: Patient has newly inserted J G-tube in place, area of insertion is clean and without signs of debris or infection <Tai Robledo 04/18/18 18:39> - Routine Extremities Exam Comments: Patient has cerebral palsy, and all limbs show significant atrophic change. <Tai Robledo 04/18/18 18:39> - Routine Skin Exam Present: intact, cyanosis. Absent: erythema <Tai Robledo 04/18/18 18:39> - Routine Neurological Exam Patient is nonverbal but responds to pain and some stimulus. Patient has limited to no movement or use of all limbs. <Tai Robledo 04/18/18 18:39> - Detailed Neurological Exam: Coma Scale Eye Opening: Spontaneous <Tai Robledo 04/18/18 18:39> Verbal Response: Sounds <Tai Robledo 04/18/18 18:39> Motor Response: Localizing <Tai Robledo 04/18/18 18:39> Som Coma Scale Total: 11 <Tai Robledo 04/18/18 18:39> Patient is a nonverbal cerebral palsy patient <Tai Robledo 04/18/18 18:39> - Routine Psychiatric Exam Present: unable to assess <Tai Robledo 04/18/18 18:39> Assessment and Plan - Assessment (1) Pneumonia Code(s): J18.9 - Pneumonia, unspecified organism Status: Acute (2) Cerebral palsy Code(s): G80.9 - Cerebral palsy, unspecified Status: Acute (3) Nutrition, metabolism, and development symptoms Code(s): R63.8 - Other symptoms and signs concerning food and fluid intake Status: Acute <LilianeDee Selena - 04/20/18 13:07> (1) Pneumonia Code(s): J18.9 - Pneumonia, unspecified organism Status: Acute Plan: This patient presents the ED with a 3 day history of productive cough with white mucus. Coughing began on Sunday per mother and has been productive throughout. This patient has a history of prior pneumonia requiring intubation and extended ICU stay which required tracheostomy. Per mother patient had difficulty breathing starting on Sunday. On presentation to the ED patient had a pulse of 112 and a respiratory rate of 28. Chest x-ray findings showed a left lung perihilar consolidation extending to the left lung base which may represent pneumonia. On physical exam patient was rhonchorous in all lung lopez bilaterally. Patient currently satting 97% on room air. Patient to be treated for community-acquired pneumonia vs pneumonia due to aspiration, unlikely due lack of oral feeding due to GJ tube in place. Blood cultures negative after 3 days. Patient doing well on Cytomel and to be discharged this afternoon. - Continue azithromycin outpatient (2) Cerebral palsy Code(s): G80.9 - Cerebral palsy, unspecified Status: Acute Plan: This patient is nonverbal wheelchair-bound 37-year-old man with cerebral palsy. Patient lives with mother stepfather and sister and at this time physical therapy is not indicated. Due to motor impairment patient is bedbound. -Fall precautions, doubt he can roll over effectively. -DVT prophylaxis with SCDs due to GI bleed (3) Nutrition, metabolism, and development symptoms Code(s): R63.8 - Other symptoms and signs concerning food and fluid intake Status: Acute Plan: Fluids: Not indicated at this time Electrolytes: Replete as needed Nutrition: Tube feeding with Jevity formula at a rate of 60 mL. We will give D5 as an IV fluid when he is n.p.o. DVT prophylaxis: SCDs due to possible GI bleed <Tai Robledo O - 04/18/18 18:14> - Attending Attestation The exam, history, and the medical decision-making described in the above note were completed with the assistance of the resident physician. I reviewed and agree with the findings presented. I attest that I had a [id number] encounter with the patient on the same day, and personally performed and documented my assessment and findings in the medical record. He has loving and excellent caregivers at home both his mother and father. Now that his PEG tube has been changed it is able to be used right away. There is a section that goes straight to his jejunum through which he will be fed. He himself is nonverbal but largely but did say the word mom and does seem eager to be able to go home. <Dee Momin M - 04/20/18 13:07> <Tai Robledo - Last Filed: 04/18/18 18:14> (1) Pneumonia Qualifiers: Pneumonia type: due to unspecified organism Laterality: left Lung location: unspecified part of lung Qualified Code(s): J18.9 - Pneumonia, unspecified organism (2) Cerebral palsy Qualifiers: Cerebral palsy type: unspecified type Qualified Code(s): G80.9 - Cerebral palsy, unspecified <LilianeAlexiDee M - Last Filed: 04/20/18 13:07> (1) Pneumonia Qualifiers: Pneumonia type: due to unspecified organism Laterality: left Lung location: unspecified part of lung Qualified Code(s): J18.9 - Pneumonia, unspecified organism (2) Cerebral palsy Qualifiers: Cerebral palsy type: unspecified type Qualified Code(s): G80.9 - Cerebral palsy, unspecified <Tai Robledo Filed: 04/18/18 18:14> (1) Pneumonia Qualifiers: Pneumonia type: due to unspecified organism Laterality: left Lung location: unspecified part of lung Qualified Code(s): J18.9 - Pneumonia, unspecified organism (2) Cerebral palsy Qualifiers: Cerebral palsy type: unspecified type Qualified Code(s): G80.9 - Cerebral palsy, unspecified <Dee Momin M - Last Filed: 04/20/18 13:07> (1) Pneumonia Qualifiers: Pneumonia type: due to unspecified organism Laterality: left Lung location: unspecified part of lung Qualified Code(s): J18.9 - Pneumonia, unspecified organism (2) Cerebral palsy Qualifiers: Cerebral palsy type: unspecified type Qualified Code(s): G80.9 - Cerebral palsy, unspecified
[2018-04-18] MEDS: Azithromycin Inj 500 MG in Sodium Chlor 0.9% Inj 250 ML IV.SIG SCH (13:10)
--- NOTE | 2018-04-20 01:15 | P.DS ---
Date of admission: 04/15/18 10:38 Primary care physician: Andrew St MD Brief History from admission: This patient is a non-verbal, wheel chair bound, -[place] 37-year-old male with a past medical history of cerebral palsy, seizures, prior GI ulcer in 2017, prior aspiration pneumonia requiring intubation for 2 weeks. Patient's PCP is Dr. Andrew St with last patient contact on March 13, 2018. Patient presented to the ED with a 3 day history of productive cough with white mucus and a 3 day history of constipation. History was garnered from mother. Coughing began on Sunday and was productive with white mucus. On Sunday mother reports subjective warmth but denies any vomiting. Mom tried Mucinex that she believes helped his breathing a little but his coughing neither worsened nor bettered. His cough has no aggravating or alleviating factors. Mother states that coughing comes and goes about 4 times a day and each coughing episode lasts about 2 minutes. He has experienced some shortness of breath that was slightly eased by the Mucinex. She also reports difficulty breathing since Sunday. The morning of admission the mother observed heavy and fast breathing and sought medical attention for the patient. Per mother subjective fevers but no chills. Of note per mother patient is current on Pneumovax. Per mother patient has also been constipated since the end of last week. On she tried an enema and believed she was able to get some stool out but not very much. On Sunday she tried a suppository with no resolve. He is currently on MiraLAX at home and in the past enemas have worked for prior constipation. In the ED the patient was found to have a positive Hemoccult in stool and in his emesis. Mother denies any blood in the stool or in sputum. Patient has a G J-tube in place that was replaced approximately a month ago. He is currently on the Jevity formula at a 60 mL rate. Patient is followed by Dr. Tenorio at [place]. DS: Diagnosis - Discharge Diagnosis (1) Pneumonia Status: Acute (2) Cerebral palsy Status: Acute (3) Nutrition, metabolism, and development symptoms Status: Acute DS: Medications - Discharge Medications Prescriptions: bisacodyl [Bisac-Evac] 10 mg MS DAILY PRN #7 ea PRN Reason: Severe Consitipation lactulose 30 ml PO DAILY PRN #1 bottle PRN Reason: Severe Consitipation pantoprazole 40 mg PO BID 30 Days #120 tab DS: Summary Hospital Course: Patient originally admitted for pneumonia. In the ED chest x-ray finding showed a left lung perihilar consolidation extending to the left lung base. Patient had a pulse of 112 and a respiratory rate of 28, but was afebrile and blood pressure was 121/59. Patient's white count was also within normal range. He was admitted and ceftriaxone as well as azithromycin was begun. During admission patient also found to have heme positive stool and heme positive emesis. GI was consulted and patient underwent EGD. The EGD revealed distal esophageal mucosa to be friable and erythemic involving the total distal third of the esophagus. Gastric mucosa appeared to be unremarkable except for some area of erythema and ulceration. During this admission, the family requested change of the GJ tube. Per interventional radiology original J G-tube was found to be fractured internally with the J port emptying into the stomach, and a new 22 [place] J G-tube was placed. The position of the tube was verified to be in good position and deemed okay to use. Blood cultures showed no growth for 3 days, patient continued to improve and was satting 97% on room air. Patient was discharged home on azithromycin to follow-up with patient's GI doctor and PCP. - Time Spent with Patient Total time spent providing and/or coordinating discharge services: - Quality: VTE Deep Vein Thrombosis/Pulmonary Embolism Present on Admission: No Exam - Constitutional no acute distress, thin - Routine HEENT Exam Head: Present: normocephalic, atraumatic Eye: Present: EOMI ENT: Present: mucous membranes moist - Routine Respiratory Exam Present: CTA bilaterally. Absent: accessory muscle use, patient mechanically ventilated, decreased breath sounds, prolonged expiratory phase, rales, respiratory distress, rhonchi, stridor, wheezes, crackles, distant breath sounds - Routine Cardiovascular Exam Present: RRR, S1, S2. Absent: murmur, gallop, rubs - Routine Abdominal Exam Present: soft, normoactive bowel sounds Comments: Patient has newly inserted JG tube in place, area of insertion is clean without signs of debris or infection. - Routine Extremities Exam Comments: Patient suffers from cerebral palsy, and all limbs show significant atrophic change - Routine Skin Exam Present: intact. Absent: cyanosis, erythema - Routine Neurological Exam Patient is nonverbal but does respond to pain and some stimulus. Patient has limited to no movement or use of any and all limbs. Results Procedures completed during hospitalization: On April 16 the patient underwent EGD with no complications. On April 18 patient underwent GJ tube replacement with no complications. Completed studies during hospitalization: Pending at discharge 04/16/18 13:28 Surgical [PTH] Routine Labs on day of discharge: Preliminary micro results at discharge 04/15/18 09:40 Aerobic Blood Culture - Preliminary Blood - Peripheral No growth in 4 days Anaerobic Blood Culture - Preliminary No growth in 4 days 04/15/18 09:25 Aerobic Blood Culture - Preliminary Blood - Peripheral No growth in 4 days Anaerobic Blood Culture - Preliminary No growth in 4 days - Impressions ITS Impressions Chest X-Ray 04/15/18 06:44 CONCLUSION: Left lung perihilar consolidation extending to the left lung base may represent pneumonia. Abdomen X-Ray 04/15/18 07:20 CONCLUSION: Probable ileus with significant stool throughout the colon and part of the dilatation of loops of bowel could be due to fecal impaction. Tube Change 04/18/18 00:00 CONCLUSION: 1. Uncomplicated gastrojejunostomy tube exchange as above. Discharge Plan - Discharge Disposition Patient Disposition: Discharge Home - Discharge Condition Condition: Stable - Discharge Order Discharge Orders: Discharge Order (Routine); Ordered 04/17/18 Ordered By: Florencia Coles - Discharge Details Anticipated Discharge Date: 04/17/18 - Physicians Team Primary Care Provider: Andrew St Attending Provider: Dee Momin Other Providers: David Mackay MD
== END 2018-04-18 18:06 | disposition home or self-care (01) ==
LOC: NEPE 06:23 → NEDA 10:41 → NEPFCDU 17:11
PROVIDERS: ADMIT Family Medicine; ATTEND Family Medicine